=== PATIENT | female | born 1960 | race Caucasian/White ===

== ENCOUNTER → 2017-11-05 09:05 | Outpatient (CLI) | payer MEDICAID, SELFPAY ==
--- NOTE | 2017-11-05 09:10 | MM_ITS ---
MM Dig screening mamm BI w/CAD CAD Screening COMPARISON: Digital mammograms 04/08/2012 and 03/31/2015 INDICATION: There is a history of breast cancer in patient's maternal aunt. TECHNIQUE: Standard CC and MLO images were obtained. R2 CAD reviewed. FINDINGS: The breasts are composed primarily of fat with minimal scattered fibroglandular densities throughout each breast. There is a stable asymmetric density upper outer quadrant right breast likely asymmetric glandular tissue. There are stable benign-appearing calcifications right breast. There is no suspicious lesion and no suspicious microcalcifications. IMPRESSION: Fibrofatty parenchyma with no suspicious lesion seen BI-RADS Category: 2 Benign Finding RECOMMENDED FOLLOW-UP: 1YR - 1 YEAR FOLLOW-UP (A letter has been sent to the patient regarding results of the study.)
[2017-11-05 11:21] LABS: Alanine Aminotransferase 98 U/L (12-78); Albumin Level 4.1 gm/dL (3.4-5.0); Alkaline Phosphatase 109 U/L (46-116); Aspartate Amino Transferase 49 U/L (15-37); Bilirubin,Direct 0.2 mg/dL (0.0-0.2); Bilirubin,Total 0.5 mg/dL (0.2-1.0); Chol/HDL Ratio 3.3 (1-3.5); Cholesterol 220 mg/dL (140-200); HDL Cholesterol 66 mg/dL (29-89); LDL Cholesterol 125 mg/dL (0-130); Total Protein,Serum 7.3 gm/dL (6.4-8.2); Triglycerides 144 mg/dL (30-200); VLDL Cholesterol 29 mg/dL (0-40)
== END ==
PROVIDERS: Internal Medicine Interventional Cardiology; Family Provider Internal Medicine Adolescent Medicine; PCP Nurse Practitioner Family; Visit Provider Nurse Practitioner Family
DX: Z12.31 Encounter for screening mammogram for malignant neoplasm of breast (principal)
CPT/HCPCS: 36415; 77067; 80061; 80076

== ENCOUNTER → 2019-03-16 16:33 | Outpatient (CLI) | payer MEDICAID, SELFPAY ==
--- NOTE | 2019-03-16 | MM_ITS ---
MM Dig screening mamm BI w/CAD CAD Screening COMPARISON: Digital mammograms with CAD 03/31/2015 and 11/05/2017 INDICATION: There is a history of breast cancer in patient's maternal aunt diagnosed at age 50 TECHNIQUE: Standard CC and MLO images were obtained. R2 CAD reviewed. FINDINGS: Scattered fiber glandular densities are seen throughout both breasts. Again noted is asymmetric glandular density upper outer quadrant right breast which is stable. There are couple benign-appearing calcifications in each breast. There is no suspicious lesion and there are no suspicious microcalcifications. IMPRESSION: Fibrofatty parenchyma with no suspicious lesion seen BI-RADS Category: 2 Benign Finding(s) RECOMMENDED FOLLOW-UP: 1YR - 1 YEAR FOLLOW-UP (A letter has been sent to the patient regarding results of the study.)
== END ==
PROVIDERS: PCP Nurse Practitioner Family; Visit Provider Nurse Practitioner Family
DX: Z12.31 Encounter for screening mammogram for malignant neoplasm of breast (principal)
CPT/HCPCS: 77067

== ENCOUNTER → 2019-04-27 16:47 | Outpatient (CLI) | payer MEDICAID, SELFPAY ==
[2019-04-27 21:28] LABS: Anion Gap 11.6 mEq/L (5-15); Blood Urea Nitrogen 18 mg/dL (7-18); Calcium 9.4 mg/dL (8.5-10.1); Carbon Dioxide 30 mmol/L (21.0-32.0); Chloride 101 mmol/L (98-107); Creatinine,Serum 0.85 mg/dL (0.55-1.02); Estimated Glomerular Filt Rate 68 ml/min (>60); GFR (African American) 82 ML/MIN (>60); Glucose 258 mg/dL (74-106); Potassium 4.6 mmoL/L (3.5-5.1); Sodium 138 mmol/L (136-145)
== END ==
PROVIDERS: Visit Provider Nurse Practitioner Family
DX: K57.93 Diverticulitis of intestine, part unspecified, without perforation or abscess with bleeding (principal)
CPT/HCPCS: 36415; 80048

== ENCOUNTER → 2019-04-28 11:03 | Outpatient (CLI) | payer MEDICAID, SELFPAY ==
--- NOTE | 2019-04-28 11:14 | CT_ITS ---
CT abdomen pelvis w con CLINICAL INDICATION: ITS.REASON: DIVERTICULITIS ORDERING PHYSICIAN: Meli Gallardo PATIENT AGE: 59 years COMPARISON: 07/14/2015. TECHNIQUE: Axial images obtained with sagittal and coronal reformats. All CT scans at the facility use one or more dose reduction, viz: automated exposure control, ma/kV adjustment per patient size (including targeted exams where dose is matched to indication, i.e. head), or iterative reconstruction technique. PROCEDURE: Oral Contrast: None IV Contrast: Yes . FINDINGS: Lower thorax: No acute finding ABDOMEN: Liver: No masses or biliary dilatation. Gallbladder: Not visualized. Pancreas: No masses or peripancreatic fluid collections. Spleen: Unremarkable. Adrenals: Unremarkable Kidneys/ureters: No masses. No renal calculi. No hydronephrosis. No perinephric fluid collections. No ureteral dilatation or obvious ureteral calculi. Stomach bowel: There is a small gastric hernia. There are colonic diverticula and there is an area of moderate wall thickening with pericolonic stranding involving proximal sigmoid colon. There is no definite extraluminal air or abscesses. Appendix: No evidence of appendicitis. PELVIS: Reproductive: Uterus is not visualized. Bladder: Nondistended. No obvious stones or masses. ABDOMEN & PELVIS: Peritoneum: No abnormal fluid collections. No obvious inflammatory changes. No free air. Lymph nodes: There are a few small likely stable left para-aortic lymph nodes and these are likely benign. Vasculature: No evidence of abdominal aortic aneurysm. No retroperitoneal hemorrhage evident. Bones: No acute osseous process. The left-sided sacral stimulator device is unchanged. IMPRESSION: Evidence of sigmoid colon colitis likely related to acute diverticulitis. Because all wall thickening focally I would suggest direct visualization or at least follow-up imaging to rule out any other possible transmural process. Small gastric hernia.
== END ==
PROVIDERS: PCP Nurse Practitioner Family; Visit Provider Nurse Practitioner Family
DX: K57.93 Diverticulitis of intestine, part unspecified, without perforation or abscess with bleeding (principal)
CPT/HCPCS: 74177; Q9967

== ENCOUNTER 2019-10-30 08:00 | Outpatient (RCR) | payer MEDICAID, SELFPAY | END 2019-11-16 17:00 | disposition home or self-care (01) | LOC: PT.CARL 08:00 | PROVIDERS: Visit Provider Orthopaedic Surgery Adult Reconstructive Orthopaedic Surgery | DX: M77.11 Lateral epicondylitis, right elbow (principal); M54.2 Cervicalgia | CPT/HCPCS: 97014; 97033; 97035; 97110; 97163; G0283 ==

== ENCOUNTER → 2020-05-05 12:31 | Outpatient (CLI) | payer MEDICAID, SELFPAY ==
--- NOTE | 2020-05-05 12:35 | MM_ITS ---
PROCEDURE: MM DIG SCREENING MAMM BI W/CAD Digital Breast Tomosynthesis Included CLINICAL INDICATION: SCREENING History of breast cancer patient's mother COMPARISON: MG DMSB DIG MAMM-SCREEN TAE from 03/31/2015 MG [facility] MM Dig screening mamm BI w/CAD from 11/05/2017 MG DIG MAMM-SCREEN TAE from 03/16/2019 TECHNIQUE: Standard CC and MLO images and 3D Tomosynthesis was obtained. R2 CAD reviewed. FINDINGS: Mild to moderate diffuse fibroglandular densities are seen throughout both breasts. There is a stable area of asymmetric glandular elements upper-outer quadrant right breast. There is a stable benign-appearing nodular density just deep to the nipple right breast. There is no new or suspicious lesion in either breast and no suspicious microcalcifications. There is a benign-appearing calcification right breast. IMPRESSION: Moderate breast density with no suspicious lesions seen BI-RAD Category: 2 Benign Finding(s) FOLLOW-UP: 1YR 1 Year Follow-up (A letter has been sent to the patient regarding results of the study.) Dictated Dr. Vito Gallegos MD 05/13/2020 08:32 Dr. Vito Buckley MD in [place] 05/13/2020 08:32
== END ==
PROVIDERS: PCP Nurse Practitioner Family; Visit Provider Nurse Practitioner Family
DX: Z12.31 Encounter for screening mammogram for malignant neoplasm of breast (principal)
CPT/HCPCS: 77063; 77067

== ENCOUNTER 2021-02-09 14:00 | Outpatient (RCR) | payer MEDICAID, SELFPAY | END 2021-03-13 09:49 | disposition home or self-care (01) | LOC: PT.CARL 14:00 | PROVIDERS: PCP Nurse Practitioner Family; Visit Provider Nurse Practitioner Family | DX: M54.5 Low back pain (principal) | CPT/HCPCS: 97110; 97140; 97163 ==

== ENCOUNTER → 2021-06-05 08:08 | Outpatient (CLI) | payer MEDICAID, SELFPAY ==
--- NOTE | 2021-06-05 08:13 | MM_ITS ---
PROCEDURE: MM DIG SCREENING MAMM BI W/CAD Digital Breast Tomosynthesis Included CLINICAL INDICATION: SCREENING There is a history of breast cancer in the patient's. COMPARISON: MG [facility] MM Dig screening mamm BI w/CAD from 11/05/2017 MG DIG MAMM-SCREEN TAE from 03/16/2019 MG MM DIG SCREENING MAMM BI W/CAD from 05/05/2020 TECHNIQUE: Standard CC and MLO images and 3D Tomosynthesis was obtained. R2 CAD reviewed. FINDINGS: Mild scattered fibroglandular densities are seen throughout both breasts. There is a mole marker inner quadrant right breast. There are a few scattered benign-appearing microcalcifications in each breast. There is no new or suspicious lesion in either breast and no suspicious microcalcifications. IMPRESSION: Stable mild breast density with no suspicious lesions seen BI-RAD Category: 2 Benign Finding(s) FOLLOW-UP: 1YR 1 Year Follow-up (A letter has been sent to the patient regarding results of the study.) Dictated by: Dr. Vito Buckley MD 06/09/2021 08:57 Dr. Vito Buckley MD in [place] 06/09/2021 08:57
== END ==
PROVIDERS: PCP Nurse Practitioner Family; Visit Provider Nurse Practitioner Family
DX: Z12.31 Encounter for screening mammogram for malignant neoplasm of breast (principal)
CPT/HCPCS: 77063; 77067

== ENCOUNTER → 2022-07-03 15:35 | Outpatient (CLI) | payer MEDICAID, SELFPAY ==
--- NOTE | 2022-07-03 15:40 | MM_ITS ---
PROCEDURE INFORMATION: Exam: MG Bilateral Screening 3D Mammography Exam date and time: 07/03/2022 3:36 PM Age: 62 years old Clinical indication: Screening examination TECHNIQUE: Imaging protocol: Bilateral Screening tomosynthesis and 2D mammography including computer-aided detection (CAD) when performed. COMPARISON: 1. MG MM DIG SCREENING MAMM BI W/CAD 06/05/2021 8:54 AM 2. MG MM DIG SCREENING MAMM BI W/CAD 05/05/2020 1:06 PM 3. MG DIG MAMM-SCREEN TAE 03/16/2019 4:45 PM 4. MG [facility] MM Dig screening mamm BI w/CAD 11/05/2017 9:36 AM FINDINGS: MAMMOGRAPHY: Breast composition: There are scattered areas of fibroglandular density. Mass: None. Architectural distortion: No new or suspicious architectural distortion. Calcifications: Stable benign-appearing calcifications are present. No new or suspicious cluster of microcalcifications have developed. Asymmetric density: No new or suspicious asymmetric density is present Skin thickening: None. Axillary adenopathy: None. IMPRESSION: No mammographic evidence of malignancy. Recommend annual screening mammography unless otherwise clinically indicated. ASSESSMENT: BI-RADS category 2: Benign
== END ==
PROVIDERS: PCP Nurse Practitioner Family; Visit Provider Nurse Practitioner Family
DX: Z12.31 Encounter for screening mammogram for malignant neoplasm of breast (principal)
CPT/HCPCS: 77063; 77067

== ENCOUNTER → 2022-11-13 12:40 | Outpatient (CLI) | payer MEDICAID, SELFPAY ==
--- NOTE | 2022-11-13 12:45 | MM_ITS ---
PROCEDURE INFORMATION: Exam: US Left Breast, Complete MG Left Diagnostic Breast Tomosynthesis Exam date and time: 11/13/2022 1:23 PM Age: 62 years old Clinical indication: Concern for palpable lump in the left breast: PT felt area 900 area-- PT also has bruising this area. TECHNIQUE: Imaging protocol: Complete ultrasound of all four quadrants of the Left breast and the retroareolar regions, including ultrasound of the axilla when performed. Left Diagnostic tomosynthesis and 2D mammography including computer-aided detection (CAD) when performed. Unilateral or bilateral exam. Triangular skin marker placed with spot compression added. COMPARISON: 1. MG MM DIG SCREENING MAMM BI W/CAD 07/03/2022 3:36 PM 2. MG MM DIG SCREENING MAMM BI W/CAD 06/05/2021 8:54 AM 3. MG MM DIG SCREENING MAMM BI W/CAD 05/05/2020 1:06 PM 4. MG DIG MAMM-SCREEN TAE 03/16/2019 4:45 PM FINDINGS: MAMMOGRAPHY: Breast composition: There are scattered areas of fibroglandular density. Mass: None. Architectural distortion: None. Calcifications: No suspicious calcifications. Asymmetric density: None. Skin thickening: None. Axillary adenopathy: None. Other: No mammographic findings related to area of clinical concern in the lower inner breast. ULTRASOUND: Left sonography, all 4 quadrants, retroareolar and axilla. At the area of palpable concern, 9 o'clock 5 cm from the nipple, no sonographic findings demonstrated. Several oval hyperechoic masses, likely lipomas, at 1 o'clock 7 cm from the nipple measuring 0.4 x 0.6 x 0.4 cm and at 10 o'clock 3 cm from the nipple measuring 1.4 by 1.1 x 0.5 cm. Scattered sub cm simple cysts. Sonographically unremarkable left axillary lymph node. IMPRESSION: No mammographic or sonographic findings at the area of clinical concern in the left breast.Further evaluation of a palpable abnormality should be based on clinical grounds regardless of radiographic findings or lack thereof. Probably benign echogenic masses, likely lipomas, on the left at 1 and 10 o'clock, suggest six-month follow-up targeted left sonography unless otherwise clinically indicated. ASSESSMENT: BI-RADS Category 3: Probably benign
== END ==
PROVIDERS: PCP Nurse Practitioner Family; Visit Provider Nurse Practitioner Family
DX: N63.20 Unspecified lump in the left breast, unspecified quadrant (principal)
CPT/HCPCS: 76641; 77061; 77065; G0279

== ENCOUNTER 2023-04-30 09:00 | Outpatient (RCR) | payer MEDICAID, MEDICARE, SELFPAY | END 2023-04-30 10:00 | disposition home or self-care (01) | LOC: PT 09:00 | PROVIDERS: PCP Nurse Practitioner Family; Visit Provider Orthopaedic Surgery Sports Medicine | DX: M25.511 Pain in right shoulder (principal); M75.101 Unspecified rotator cuff tear or rupture of right shoulder, not specified as traumatic | CPT/HCPCS: 97010; 97016; 97110; 97140; 97163; 97164; 97530 ==

== ENCOUNTER → 2023-05-10 13:29 | Outpatient (CLI) | payer MEDICARE, MEDICAID, SELFPAY ==
--- NOTE | 2023-05-10 13:33 | US_ITS ---
PROCEDURE INFORMATION: Exam: US Left Breast, Complete Exam date and time: 05/10/2023 3:11 PM Age: 63 years old Clinical indication: Short-term radiographic follow-up for a probable lipoma TECHNIQUE: Imaging protocol: Complete ultrasound of all four quadrants of the left breast and the retroareolar regions, including ultrasound of the axilla when performed. COMPARISON: US BREAST LT COMPLETE 11/13/2022 1:15 PM FINDINGS: Breast: Sonographic images of the left breast including the retroareolar region, all 4 quadrants and the axilla do not demonstrate any suspicious solid or cystic masses. Minimal subcentimeter cystic change is present in the left breast Incidental subcentimeter lipoma in the upper outer quadrant. No architectural distortion or acoustical shadowing. No skin thickening or axillary adenopathy. IMPRESSION: No sonographic evidence of malignancy.Annual bilateral mammographic screening is recommended in November 2023 unless otherwise clinically indicated. ASSESSMENT: BI-RADS Category 2: Benign
== END ==
PROVIDERS: PCP Nurse Practitioner Family; Visit Provider Nurse Practitioner Family
DX: R92.2 Inconclusive mammogram (principal)
CPT/HCPCS: 76641

== ENCOUNTER 2024-12-22 13:23 | Outpatient (CLI) | payer MEDICARE, MEDICAID, SELFPAY ==
--- NOTE | 2024-12-22 13:26 | MM_ITS ---
PROCEDURE INFORMATION: Exam: MG Bilateral Screening 3D Mammography Exam date and time: 12/22/2024 1:38 PM Age: 64 years old Clinical indication: Screening examination TECHNIQUE: Imaging protocol: Bilateral Screening tomosynthesis and 2D mammography including computer-aided detection (CAD) when performed. COMPARISON: 1. MG MM DIG MAMM DX UNILAT LT CAD 11/13/2022 1:23 PM 2. MG MM DIG SCREENING MAMM BI W/CAD 07/03/2022 3:36 PM FINDINGS: MAMMOGRAPHY: Breast composition: There are scattered areas of fibroglandular density. Mass: No suspicious masses. Architectural distortion: None. Calcifications: No suspicious calcifications. Asymmetric density: None. Skin thickening: None. Axillary adenopathy: None. IMPRESSION: No mammographic evidence of malignancy. Annual screening is recommended unless otherwise clinically indicated. ASSESSMENT: BI-RADS Category 1: Negative.
== END 2024-12-22 23:59 | disposition home or self-care (01) ==
LOC: RAD 13:24
PROVIDERS: PCP Nurse Practitioner Family; Visit Provider Nurse Practitioner Family
DX: Z12.31 Encounter for screening mammogram for malignant neoplasm of breast (principal)
CPT/HCPCS: 77063; 77067

== ENCOUNTER 2025-04-06 07:28 | Outpatient (CLI) | payer MEDICARE, MEDICAID, SELFPAY ==
--- OUTSIDE RECORDS SUMMARY | 2025-02-05 08:45 | XMS_ITS | Encounter Summary ---
Author Organization Healthcare Address [address] [place] [address] Care Team Providers Care Compound Mixer Name Role Phone Meli Gallardo CEMENT DESPATCH OPERATOR Primary Care Provider [phone] Reason for Referral * Consultation (Routine) - Authorized Specialty Diagnoses / Procedures Referred By Estrellita alves Referred To Contact Sleep Medicine Diagnoses CAROLINE (obstructive sleep apnea) Raúl Miller DO [address] [place] [address] Phone: tel: fax: [facility] [address] [place] [address] Phone: tel: fax: Referral ID Status Reason Start Date Expiration Date Visits Requested Visits Authorized [id number] Authorized Specialty Services Required 02/05/2025 08/07/2026 1 1 Scheduling Instructions History of CAROLINE that is NOT TREATED Reason for Visit * Reason Comments ASCVD * Consultation (Routine) - Closed Specialty Diagnoses / Procedures Referred By Estrellita alves Referred To Contact Cardiology Diagnoses Atherosclerotic heart disease of [place] coronary artery without angina pectoris Meli Gallardo, CEMENT DESPATCH OPERATOR [address] [place] [address] Phone: tel: fax: Referral ID Status Reason Start Date Expiration Date V isits Requested Visits Authorized [id number] Closed Specialty Services Required 11/25/2024 05/27/2026 1 1 Encounter Details Date Type Department Care Team (Late st Contact Info) Description 02/05/2025 8:45 AM EDT Consult [facility] [place] [address], [address] [place] [address] Raúl Miller, DO [address] [place] [address] Atypical chest pain (Primary Dx); Essential hypertension; Mixed dyslipidemia; TIA (transient ischemic attack); CAROLINE (obstructive sleep apnea); Class 1 obesity Social History Tobacco Use Types Packs/Day Years Used Date Smoking Tobacco: Never Passive Smoke Exposure: Never Smokeless Tobacco: Never Alcohol Use Standard Drinks/Week Comments No 0 (1 standard drink = 0.6 oz pur e alcohol) Humiliation, Afraid, Rape, and Kick questionnair e Answer Date Recorded Within the last year, have y ou been afraid of your partner or ex-partner? No 10/02/2024 Within the last year, have y ou been humiliated or emotionally abused in other ways by your partner or ex-partner? No Within the last year, have y ou been kicked, hit, slapped, or otherwise physically hurt by your partner or ex-partner? No 10/02/2024 Within the last year, have y ou been raped or forced to have any kind of sexual activity by your partner or ex-partner? No 10/02/2024 Social Connection and Isolation Panel Answer Date Recorded In a typical week, how many times do you talk on the phone with family, friends, or neighbors? More than three times a week 10/02/2024 How often do you get togethe r with friends or relatives? More than three times a week 10/02/2024 How often do you attend chur ch or rastafari services? Never 10/02/2024 Do you belong to any clubs o r organizations such as adventism groups, unions, fraternal or athletic groups, or school groups? No 10/02/2024 How often do you attend meet ings of the clubs or organizations you belong to? Never 10/02/2024 Are you , , di vorced, , never , or living with a partner? 10/02/2024 AUDIT-C Answer Date Recorded Q1: How often do you have a drink containing alcohol? Never 10/02/2024 Q2: How many drinks containi ng alcohol do you have on a typical day when you are drinking? Patient does not drink Q3: How often do you have si x or more drinks on one occasion? Never 10/02/2024 PHQ-2 Answer Date Recorded Patient Health Questionnaire-2 Score 0 02/24/2024 [facility] - Occupational Stress Questionnaire Answer Date Recorded Do you feel stress - tense, restless, nervous, or anxious, or unable to sleep at night because your mind is troubled all the time - these days? Only a little 10/02/2024 Exercise Vital Sign Answer Date Recorde d On average, how many days pe r week do you engage in moderate to strenuous exercise (like a brisk walk)? 3 days 10/02/2024 On average, how many minutes do you engage in exercise at this level? 30 min 10/02/2024 Hunger Vital Sign Answer Date Recorded Within the past 12 months, y ou worried that your food would run out before you got the money to buy more. Never true 10/02/20 24 Within the past 12 months, t he food you bought just didn't last and you didn't have money to get more. Never true 10/02/2024 PRAPARE - Transportation Answer Date Re corded In the past 12 months, has l ack of transportation kept you from medical appointments or from getting medications? No 09/07 In the past 12 months, has l ack of transportation kept you from meetings, work, or from getting things needed for daily living? No 10/02/2024 Housing Stability Vital Sign Answer Isidro e Recorded In the last 12 months, was t here a time when you were not able to pay the mortgage or rent on time? No 10/02/2024 In the past 12 months, how m any times have you moved where you were living? 1 10/02/2024 At any time in the past 12 m [facility], were you homeless or living in a assisted (including now)? No 10/02/2024 CAGE ASSESSMENT Answer Date Recorded Cage unable to access Not on file 10/01/2024 Cage max number of drinks Not on file 2023 Cage Beverages a week Not on file 10/01/2024 Have you ever felt you should CUT down on your d rinking? 0 10/01/2024 Have you been ANNOYED by people criticizing your drinking? 0 10/01/2024 Have you felt GUILTY about your drinking? 0 10/01/2024 Have you had a drink first t allison in the morning (EYE-SWIMMING TEACHER) to steady your nerves or to get rid of a hangover? 0 10/01/2024 CAGE Questionnaire Score 0 024 Utilities Answer Date Recorded In the past 12 months has th e [employer], gas, oil, or water [employer] threatened to shut off services in your home? No 10/02/2024 Comments No Sex and Gender Information Value Date Recorded Sex Assigned at Female 10/02/2023 1:40 PM EST Legal Sex Female 7:54 PM EDT Gender Identity Female 10/02/2023 1:40 PM EST Sexual Orientation Straight 02/08/2023 6: 04 AM EDT documented as of this encounter Last Filed Vital Signs Vital Sign Reading Time Taken Comments Blood Pressure 124/81 02/05/2025 8:51 AM EDT Pulse 68 02/05/2025 8:51 AM EDT Temperature 37.1 C (98.8 F) 02/05/2025 8:51 AM EDT Respiratory Rate 17 02/05/2025 8:51 AM EDT Oxygen Saturation 96% 02/05/2025 8:51 AM EDT Inhaled Oxygen Concentration - - Weight 78 kg (171 lb 15.3 oz) 02/05/2025 8:51 AM EDT Height 154.9 cm (5' 1 ) 02/05/2025 8:51 AM EDT Body Mass Index 32.49 02/05/2025 8:51 AM EDT documented in this encounter Miscellaneous Notes * Assessment & Plan Note - Raúl Miller DO - 02/05/2025 11:21 AM EDT Associated Problem(s): Class 1 obesity - dietary and lifestyle modifications discussed * Assessment & Plan Note - Raúl Miller DO - 02/05/2025 11:21 AM EDT Associated Problem(s): Mixed dyslipidemia - In very high atherosclerotic cardiovascular disease (ASCVD) risk patients LDL- C goal </= 70 mg/dL - Continue therapy with Atorvastatin (Lipitor) 40 mg by mouth daily - Goal LDL-C < 70 mg/dL - repeat lipid panel today - given the patient's documented historical intolerance to statins and subjective lower extremity weakness we will also screen for liver enzymes and CK * Assessment & Plan Note - Raúl Miller DO - 02/05/2025 11:20 AM EDT Associated Problem(s): TIA (transient ischemic attack) - patient currently maintained on dual antiplatelet therapy with aspirin 81 mg and Plavix 75 mg daily - would prefer single antiplatelet therapy for secondary prevention only - I have advised the patient to discuss the utility of prolonged dual antiplatelet therapy with herneurologist - from a cardiovascular standpoint, aspirin 81 mg daily is sufficient * Assessment & Plan Note - Raúl Miller DO - 02/05/2025 11:19 AM EDT Associated Problem(s): Essential hypertension - Goal blood pressure < 130/80 mmHg - Medication titration to goal as tolerated - Home blood pressure log discussed - I recommended that the patient check their blood pressure multiple times per week for PCP/my review in an effort to optimize medication titration to goal - Orthostatic precautions were discussed in detail * Assessment & Plan Note - Raúl Miller DO - 02/05/2025 11:19 AM EDT Associated Problem(s): CAROLINE (obstructive sleep apnea) - sleep Medicine referral placed - patient would benefit from positive airway pressure treatment of her obstructive sleep apnea * Assessment & Plan Note - Raúl Miller DO - 02/05/2025 11:18 AM EDT Associated Problem(s): Atypical chest pain - chest pain is noncardiac in nature - given normal catheterization and an echocardiogram recently, no further cardiac investigation is indicated at this time - we will focus our efforts on secondary prevention * Patient Instructions - Raúl Miller DO - 02/05/2025 8:45 AM EDT Images from the original note were not included. [facility] Office Building [address] [place] [address] Clinic Svetlana Dutton RN: [phone] Our Lab: [address] [place] [address] (call to schedule a lab appointment) It was a pleasure to see you at the [facility] on [facility]. We strive to provide timely care for all our patients, and your cooperation is essential in helping us achieve this goal. To ensure a smooth visit, we kindly ask that you arrive 20-30 minutes prior to your scheduled appointment time. Additionally, please bring all yourmedications or an updated list of your medications for our staff to review. If you have any questions or concerns, feel free to contact us by phone or send a message through [employer]. We are committed to accommodating all inquires and requests in a timely fashion. If you experience any cardiac symptoms, such as chest pain or shortness of breath, please reach outto us immediately. If you cannot reach us, seek emergency medical assistance at your nearest emergency department. We want to ensure the best possible care for you. If you visit urgent care, an emergency department, or are hospitalized before your next appointment, please notify our office. Additionally, please bring any relevant discharge paperwork and cardiac test results to your next visit for review. If you encounter any issues with your medications--such as filling, refilling, or side effects--, scheduling diagnostic tests, or scheduling referrals please call our office and send us a message through [employer] so we can assist you. Thank you for coming to clinic today! Below is some information about what we discussed and a list of the orders that were placed during the visit. -Orders Placed This Visit Orders Placed This Encounter Procedures Comprehensive metabolic panel Standing Status: Future Expected Date: 02/05/2025 Expiration Date: 08/08/2026 Release to patient in MyChart: Immediate [1] Creatine Kinase (CK), Total Standing Status: Future Expected Date: 02/05/2025 Expiration Date: 08/08/2026 Release to patient in MyChart: Immediate [1] Lipid panel Standing Status: Future Expected Date: 02/05/2025 Expiration Date: 08/08/2026 [facility]] Ambulatory referral to Adult Sleep Medicine Standing Status: Future Expected Date: 02/05/2025 Expiration Date: 08/08/2026 Referral Priority: Routine Referral Type: Consultation Referral Reason: Specialty Services Required Requested Specialty: Sleep Medicine Number of Visits Requested: 1 ECG Adult Reason for Exam:: Chest Pain Hypertension Hypertension, or high blood pressure is extremely common. It usually occurs due to hardening of thearteries as we age. There are many ways to try to lower blood pressure without pills, but often we still need medication to achieve a healthy blood pressure. I recommend targeting a blood pressure goal of less than 130/80. That means the systolic blood pressure (top number) should be less than 130 AND the diastolic blood pressure (bottom number) should be less than 80. A healthy blood pressure isvery important because uncontrolled hypertension increases the risk for heart attacks, heart failure, strokes, kidney disease, dementia, and many other health problems. Below are some tips for maintaining a healthy blood pressure: -Keep track of your blood pressure and pulse (heart rate) at home and record your measurements in alog book with the date and time. -Bring your log book to all of your doctor's appointments, not just to Cardiology. -If you are overweight, losing weight can lower blood pressure -Avoid salt in the diet. Remember that sodium = salt. Read the nutritional labels on your food. Youjust try to eat <2,000 mg of sodium each day. -Exercise can lower your blood pressure too (even without weight loss!). Try to exercise 30 minutesa day 5 days of the week. -Drink alcohol in moderation. No more than 1-2 drinks in a sitting. -Avoid NSAID medications (Ibuprofen, Advil, Aleve, or Naproxen). For pain, I recommend tylenol which doesn't raise blood pressure. -Take your blood pressure medications as prescribed every day. To avoid missing doses, try using a pill box or setting alarms on your smart phone. - If you have any issues with your medications (filling, refilling, side- effects, etc.) please giveour office a call AND send a message to us on [employer] so we can help. Prevention of Heart Disease - To lower your risk of heart disease, I recommend following the [place] [employer]'s Life Essential 8. Visit their website (heart.org/lifes8) to learn more about each topic. - If you have any issues with your medications (filling, refilling, side- effects, etc.) please giveour office a call AND send a message to us on [employer] so we can help. Orozco points: -Diet: Consume a heart health diet and avoid unhealthy foods (processed foods, fast foods, red meats, high salt, sugary drinks) -Exercise: Get 150 minutes of exercise every week -Sleep: Try to get at least 7 hours of sleep every night -Avoid Toxins: Don't use any tobacco products or illegal drugs. Drink alcohol in moderation. -Blood Pressure: Know your blood pressure. Monitor it at home. A healthy blood pressure is <130/80. -Blood Sugar and Cholesterol: these should be checked periodically and treated accordingly * Progress Notes - Raúl Miller DO - 02/05/2025 8:45 AM EDT Images from the original note were not included. Cardiology Clinic New Patient Note CARDIOLOGY CLINIC NEW PATIENT NOTE Date of Visit: 02/05/25 Referring Provider: Meli Gallardo APRN [address] [place] [address] PCP: Meli Gallardo, MIGUEL ANGEL Reason for referral/consultation: Atherosclerotic Cardiovascular Disease, Unspecified Subjective History of Present Illness April Olvera is a 64 y.o. adult with a medical history notable for has a past medical history of Anxiety, Cerebrovascular accident ([facility]), Class 1 obesity, COVID-19, Diabetic neuropathy ([facility]), Diaphragmatic hernia without obstruction or gangrene (03/30/2024), Former tobacco use, GERD (gastroesophageal reflux disease), H/O renal calculi, Hypertension, Hypothyroidism, IBS (irritable bowel syndrome), Mixed dyslipidemia, PVD (peripheral vascular disease) ([facility]), Sleep apnea, TIA (transient ischemic attack), and Type 2 diabetes mellitus. who presents to clinic today for a new patient con sultation/evaluation of the above listed issue. The patient presents today for new patient evaluation of ASCVD without angina. The patient has beenreferred by Meli Gallardo APRN. The patient is a former patient of [facility], however, recent insurance issues have caused her to transition her care to the [facility]. The patient was seen most recently in [facility] Emergency Department for chest pain on 2023. The patient at the time rate of the chest pain a 6/10. There were no other associated symptoms with her chest pain. The patient was discharged home. I am unable to visualize the electrocardiogram or cardiac troponin assessment if it was completed. Most notably, the patient has a largely unrevealing cardiovascular workup performed at [facility]. She has no recent chest pain or shortness of breath issues. The patient's main issue is fatigue. She notes non restorative sleep and morning headaches. She has a diagnosis of obstructive sleep apnea, her the, does not currently use positive airway pressure device at night for treatment. The patient is able to perform all of her activities of daily living without cardiovascular or cardiopulmonary limitation. The patient is able to perform greater than 4 metabolic equivalents of cardiac workload without issue. The patient's most significant complaint is fatigue. She states she has been fatigued for greater than 1 year without interval resolution. She has no acute cardiovascular complaints to report today. She does report a history of transient ischemic attack x2. The chest pain that the patient experiences as reported as a tingling that is located in the center of her chest that resolves upon breathing. Her description of the chest pain is overall noncardiac. Additionally, she does note nocturnal leg cramping with restless legs syndrome. There are no symptoms of claudication. The patient denies fever, chills, unexpected changes in weight, changes in vision or hearing, chestpain/angina, palpitations, dyspnea, abdominal pain, changes in bowel or bladder habits, extremity weakness, and skin changes. Review of Systems Constitutional: Positive for malaise/fatigue. Negative for fever, night sweats, weight gain and weight loss. HENT: Negative. Cardiovascular: Negative for chest pain, dyspnea on exertion, leg swelling and palpitations. Respiratory: Negative. Negative for sleep disturbances due to breathing. Endocrine: Negative. Hematologic/Lymphatic: Negative for bleeding problem. Does not bruise/bleed easily. Skin: Negative. Musculoskeletal: Positive for muscle cramps (Nocturnal). Gastrointestinal: Negative. Genitourinary: Negative. Neurological: Negative. Psychiatric/Behavioral: Negative. Allergic/Immunologic: Negative. All other systems reviewed and are negative. Objective The following portions of the chart were reviewed and updated during this encounter: ---- Tobacco Meds Problems Med Hx Surg Hx Fam Hx Soc Hx ---- Primary Study Review: I personally reviewed the the report of the following studies: Ankle-brachial index, carotid ultrasound, transthoracic echocardiogram, cardiac catheterization I personally reviewed the the images/tracings of the following studies: ECG Labs: Lab Results Component Value Date NA 140 10/03/2024 K 3.8 10/03/2024 CL 102 10/03/2024 CO2 25 10/03/2024 BUN 11 10/03/2024 CREATININE 0.82 10/03/2024 CALCIUM 9.0 10/03/2024 Lab Results Component Value Date AST 26 10/01/2024 ALT 32 10/01/2024 ALKPHOS 96 10/01/2024 BILITOT 0.5 10/01/2024 Lab Results Component Value Date TRIG 226 (H) 10/02/2023 CHOL 250 10/31/2018 HDL 47 10/31/2018 LDLCALC 155 10/31/2018 Lab Results Component Value Date WBC 5.40 10/03/2024 HGB 12.4 10/03/2024 HCT 37.4 10/03/2024 PLT 204 10/03/2024 MCV 88 10/03/2024 MCV 90 02/03/2021 Lab Results Component Value Date TSH 3.46 10/02/2023 BNP 68 07/17/2020 No results found for: CKTOTAL , CKMB , CKMBINDEX , TROPONINI Medications Current Outpatient Medications Medication Instructions amLODIPine (Norvasc) 10 MG tablet 1 tablet, Daily aspirin 81 mg, Daily atorvastatin (LIPITOR) 40 mg, Every evening busPIRone (BUSPAR) 10 mg, 2 times daily citalopram (CELEXA) 40 mg, Daily clopidogrel (Plavix) 75 MG tablet Take 1 tablet by mouth in the morning. empagliflozin (JARDIANCE) 25 mg, Daily ergocalciferol (VITAMIN D-2) 50,000 Units, Weekly fluticasone (Flonase) 50 MCG/ACT nasal spray 2 sprays, Daily gabapentin (NEURONTIN) 300 mg, Daily insulin NPH-insulin regular (HumuLIN 70/30 KWIKPEN) (70-30) 100 UNIT/ML injection pen 15 Units, Subcutaneous, 2 times daily before meals, Hold if eating <50% of meal. levothyroxine (Synthroid, Levoxyl) 137 MCG tablet Take 1 tablet by mouth daily before breakfast. lisinopril 20 mg, Daily naloxone (NARCAN) 4 mg, Nasal, As needed Ozempic, 0.25 or 0.5 MG/DOSE, 2 MG/3ML solution pen-injector INJECT 0.25 MG WEEKLY SUBCUTANEOUSLY pantoprazole (PROTONIX) 40 mg, Daily before breakfast pen needle, diabetic 31G X 5 MM misc Use as directed with insulin pen. polyethylene glycol (MiraLax) 17 GM/SCOOP powder Take at 6pm - day before procedure. Mix Miralax 238 gram bottle with 64 ounces of Gatorade and refrigerate. Drink 8 ounces every 15 minutes starting at 6pm until completete. SSICOLON psyllium (Metamucil) 58.6 % powder 1 packet, Oral, Daily Semaglutide, 1 MG/DOSE, (Ozempic, 1 MG/DOSE,) 4 MG/3ML solution pen-injector Inject under the skin.Take once a week Physical Exam Visit Vitals BP 124/81 (BP Location: Left arm, Patient Position: Sitting, BP Cuff Size: Adult) Pulse 68 Temp 37.1 ??C (98.8 ??F) (Oral) Ht 1.549 m (5' 1 ) Wt 78 kg (171 lb 15.3 oz) SpO2 96% BMI 32.49 kg/m?? Physical Exam Vitals and nursing note reviewed. Constitutional: General: She is not in acute distress. HENT: Head: Atraumatic. Eyes: Extraocular Movements: Extraocular movements intact. Neck: Vascular: No carotid bruit. Cardiovascular: Rate and Rhythm: Regular rhythm. Pulses: Normal pulses. Heart sounds: Normal heart sounds. Pulmonary: Breath sounds: No wheezing, rhonchi or rales. Abdominal: General: Bowel sounds are normal. Musculoskeletal: Right lower leg: No edema. Left lower leg: No edema. Skin: General: Skin is warm and dry. Capillary Refill: Capillary refill takes less than 2 seconds. Neurological: Mental Status: She is alert. Mental status is at baseline. Psychiatric: Behavior: Behavior normal. Relevant Prior Cardiac Workup Cardiac Testing: ECG: normal sinus rhythm, no blocks or conduction defects, no ischemic changes, prolonged QTc CT's: Reviewed by Me CT abdomen pelvis: No coronary artery calcium visualized TTE/SEUN December 04, 2023 Normal sized left ventricle. Normal left ventricular wall thickness. Visually estimated ejection fraction 60% +/- 5%. Abnormal systolic strain pattern. Indeterminate diastolic function. No hemodynamically significant valvular heart disease. Negative bubble study for interatrial shunt. Nuclear Imaging No nuclear medicine results found for the past 12 months Cardiac CTA None Cardiac MRI None Cardiac Catheterization January 01, 2023 Normal left main coronary artery, left anterior descending coronary artery, left circumflex coronary artery and right coronary artery. Left ventricular end-diastolic pressure 5 mm of Hg Coronary artery dominance: Right Holter Monitor/Implanted Loop Recorder Jot DX ICM [id number] implanted 04/10/2024 GURVINDER October 27, 2024 Normal bilateral ABIs: Right= 1.12; Left= 1.15 Carotid duplex October 27, 2024 Normal carotids without stenosis Right= 48 cm/sec PSV Left= 39 cm/s PSV LE Venous Duplex October 27, 2024 Negative for deep venous thrombosis Risk Stratification: The ASCVD Risk score (aLrry DK, et al., 2019) failed to calculate for the following reasons: Risk score cannot be calculated because patient has a medical history suggesting prior/existing ASCVD Assessment/Plan Assessment/Plan April Olvera is a 64 y.o. adult with a medical history as listed above who presents to clinic today for a new patient cardiology evaluation and consultation. Problem List Items Addressed This Visit CAROLINE (obstructive sleep apnea) (Chronic) - sleep Medicine referral placed - patient would benefit from positive airway pressure treatment of her obstructive sleep apnea Relevant Orders Ambulatory referral to Adult Sleep Medicine Essential hypertension (Chronic) - Goal blood pressure < 130/80 mmHg - Medication titration to goal as tolerated - Home blood pressure log discussed - I recommended that the patient check their blood pressure multiple times per week for PCP/my review in an effort to optimize medication titration to goal - Orthostatic precautions were discussed in detail TIA (transient ischemic attack) (Chronic) - patient currently maintained on dual antiplatelet therapy with aspirin 81 mg and Plavix 75 mg daily - would prefer single antiplatelet therapy for secondary prevention only - I have advised the patient to discuss the utility of prolonged dual antiplatelet therapy with herneurologist - from a cardiovascular standpoint, aspirin 81 mg daily is sufficient Atypical chest pain - Primary - chest pain is noncardiac in nature - given normal catheterization and an echocardiogram recently, no further cardiac investigation is indicated at this time - we will focus our efforts on secondary prevention Relevant Orders ECG Adult (Completed) Class 1 obesity - dietary and lifestyle modifications discussed Mixed dyslipidemia - In very high atherosclerotic cardiovascular disease (ASCVD) risk patients LDL- C goal </= 70 mg/dL - Continue therapy with Atorvastatin (Lipitor) 40 mg by mouth daily - Goal LDL-C < 70 mg/dL - repeat lipid panel today - given the patient's documented historical intolerance to statins and subjective lower extremity weakness we will also screen for liver enzymes and CK Relevant Orders Comprehensive metabolic panel Creatine Kinase (CK), Total Lipid panel Cardiovascular Focused Lifestyle Modifications -- Lifestyle modifications and their role as treatment adjuvants were discussed: : Diet- Counseled patient on regular measurement of weight, calorie restriction and increased aerobic exercise. Eating a diet that is rich in whole grains, fruits, vegetables, polyunsaturated fats and dairy products and reducing food high in sugar, saturated fat and trans fats, such as the DASH diet is recommended. Increase intake of vegetables high in nitrates known to reduce BP, such as leafy vegetables and beetroot. Other beneficial foods and nutrients include those high in magnesium, calcium and potassium such as avocados, nuts, seeds, legumes and tofu. Additionally, reducing salt added when preparing foods, and at the table and limiting the consumption of high salt foods such as soy sauce, fast foods and processed food including breads and cereals high in salt is recommended : Weight Reduction- Body weight control is indicated to avoid obesity. Particularly abdominal obesity should be managed. : Regular Physical Activity: Regular aerobic and resistance exercise may be beneficial for both theprevention and treatment of hypertension. Moderate intensity aerobic exercise (walking, jogging, cycling, yoga, or swimming) for 30 minutes on 5-7 days per week or HIIT (high intensity interval training) which involves alternating short bursts of intense activity with subsequent recovery periods oflighter activity. Strength training also can help reduce blood pressure. Performance of resistance/strength exercises on 2-3 days per week. : Alcohol Intake- Limiting alcohol consumption to </= 2 standard drinks for men and 1.5 for women with the avoidance of binge drinking. Orders: Orders Placed This Encounter Procedures Comprehensive metabolic panel Standing Status: Future Number of Occurrences: 1 Expected Date: 02/05/2025 Expiration Date: 08/08/2026 [facility]] Creatine Kinase (CK), Total Standing Status: Future Number of Occurrences: 1 Expected Date: 02/05/2025 Expiration Date: 08/08/2026 [facility] [[facility]] Lipid panel Standing Status: Future Number of Occurrences: 1 Expected Date: 02/05/2025 Expiration Date: 08/08/2026 [facility] [[facility]] Ambulatory referral to Adult Sleep Medicine Standing Status: Future Expected Date: 02/05/2025 Expiration Date: 08/08/2026 Referral Priority: Routine Referral Type: Consultation Referral Reason: Specialty Services Required Requested Specialty: Sleep Medicine Number of Visits Requested: 1 ECG Adult Reason for Exam:: Chest Pain Follow Up: 6 months I spent 80 minutes performing the following components of the encounter (on the day of the encounter): reviewing History, examining the patient, reviewing imaging and/or labs, Independently interpreting echocardiogram, ECG and/or other imaging results, ordering tests or procedures, ordering medications, counseling the patient and family/caregiver, communicating with other health personal care service provider, care coordination, and entering clinical information in the EHR. Greater than 50% of the time spent on the encounter was face to face providing direct patient care, counseling for the patient/caregiver, and care coordination. At the conclusion of the encounter, all questions were answered to the patient???s satisfaction. Comments and concerns were taken and addressed again to the patient???s satisfaction. After discussionof all of the issues, the patient was able to verbalize and read back understanding of the discussed topics. After satisfactory read back and comprehension, the encounter concluded. Raúl Miller DO [facility] [employer] manager Division of Cardiovascular Medicine Email: [email or web address] documented in this encounter Plan of Treatment Upcoming Encounters Date Type Department Care Team (Late st Contact Info) Description 04/19/2025 8:00 AM EDT Office Visit Medical Office Building [facility] [address], [address] [place] [address] Francisco J Amor MD [address] [place] [address] 05/18/2025 7:30 AM EDT Appointment [facility] [address] [place] [phone] Manuel Palacios MD [address] [place] [phone] 08/13/2025 8:00 AM EST Office Visit [facility] [place] [address], [address] [place] [address] Raúl Miller DO [address] [place] [phone] Scheduled Referrals Name Type Priority Associated Diagnoses Order Schedule Ambulatory referral to Adult Sleep Medicine Outpatient Referral Routine CAROLINE (obstructive sleep apnea) Expected: 02/05/2025 (Approximate), Expires: 08/08/2026 documented as of this encounter Procedures Procedure Name Priority Date/Time Associated Diagnosis Comments CREATINE KINASE, TOTAL, PLASMA Routine 02/05/2025 9:39 AM EDT Mixed dyslipidemia LIPID PROFILE, PLASMA Routine 02/05/2025 9:39 AM EDT Mixed dyslipidemia COMPREHENSIVE METABOLIC PANEL, PLASMA Routine 02/05/2025 9:39 AM EDT Mixed dyslipidemia ECG ADULT Routine 02/05/2025 9:03 AM EDT Atypical chest pain documented in this encounter Results * Lipid panel (02/05/2025 9:39 AM EDT) Cholesterol, Plasma 165 <200 mg/dL 02/05/2025 11:57 AM EDT [facility] Comment: Cholesterol Reference Range (age >17 years): Desirable <200 mg/dL Borderline 200 to 239 mg/dL Undesirable >239 mg/dL HDL 55 >=50 mg/dL 02/05/2025 11:57 AM EDT [facility] Comment: HDL Cholesterol Reference Ranges (age >17 years): Female, acceptable > or = 50 mg/dL Male, acceptable > or = 40 mg/dL Triglycerides, Plasma 116 <150 mg/dL 02/05/2025 11:57 AM EDT [facility] Comment: Triglyceride Reference Range (age >17 years): Desirable: <150 mg/dL Borderline high: 150 to 199 mg/dL High: 200 to 499 mg/dL Very high: >499 mg/dL Increased risk of pancreatitis: >1000 mg/dL Cholesterol/HDL Ratio 3 02/05/2025 11:57 AM EDT [facility] LDL, Calculated 89 <100 mg/dL 11:57 AM EDT [facility] Comment: LDL Cholesterol Reference Range (age >17 years): Optimal: <100 mg/dL Near or above optimal: 100 - 129 mg/dL Borderline high: 130 - 159 mg/dL High: 160 - 189 mg/dL Very high: >189 mg/dL LDL Cholesterol Reference Range (age <18 years): Desirable: <110 mg/dL Borderline: 110 - 129 mg/dL Undesirable: >130 mg/dL LDL Cholesterol is calculated using the Jones/NIH equation. Fasting greater than or equal to 12 hours? Unknown 02/05/2025 11:57 AM EDT [facility] Blood Venous blood specimen / Unknown Venipuncture / Unknown 02/05/2025 9:39 AM EDT 02/05/2025 9:39 AM EDT Raúl L Angela DO LAB BLOOD ORDERABLES Final Result Performing Organization Address City/[facility]/ZIP Co de Phone Number [facility] [address] [place] [address] * Creatine Kinase (CK), Total (02/05/2025 9:39 AM EDT) Creatine Kinase, Plasma 84 37 - 168 U/L 02/05/2025 11:57 AM EDT [facility] Blood Venous blood specimen / Unknown Venipuncture / Unknown 02/05/2025 9:39 AM EDT 02/05/2025 9:39 AM EDT Raúl L Angela DO LAB BLOOD ORDERABLES Final Result Performing Organization Address [facility] de Phone Number [facility] [address] [place] [address] * (ABNORMAL) Comprehensive metabolic panel (02/05/2025 9:39 AM EDT) Glucose, Plasma 145(H) 74 - 99 mg/dL 02/05/2025 11:57 AM EDT [facility] BUN, Plasma 16 8 - 23 mg/dL 02/05/2025 11:57 AM EDT [facility] Creatinine, Plasma 0.70 0.60 - 1.10 mg/dL 02/05/2025 11:57 AM EDT [facility] BUN/Creatinine Ratio 23 02/05/2025 11:57 AM EDT [facility] Sodium, Plasma 141 136 - 145 mmol/L 02/05/2025 11:57 AM EDT [facility] Potassium, Plasma 4.2 3.6 - 4.9 mmol/L 02/05/2025 11:57 AM EDT [facility] Chloride, Plasma 105 97 - 107 mmol/L 02/05/2025 11:57 AM EDT [facility] CO2, Plasma 24 22 - 29 mmol/L 02/05/2025 11:57 AM EDT [facility] Anion Gap 12 6 - 16 mmol/L 02/05/2025 11:57 AM EDT [facility] Total Calcium, Plasma 9.4 8.9 - 10.2 mg/dL 02/05/2025 11:57 AM EDT [facility] Total Protein 7.3 6.3 - 7.9 g/dL 02/05/2025 11:57 AM EDT [facility] Albumin, Plasma 4.7 3.5 - 5.2 g/dL 02/05/2025 11:57 AM EDT [facility] AST, Plasma 24 10 - 35 U/L 02/05/2025 11:57 AM EDT [facility] ALT, Plasma 23 10 - 35 U/L 02/05/2025 11:57 AM EDT [facility] Alkaline Phosphatase, Plasma 99 46 - 142 U/L 02/05/2025 11:57 AM EDT [facility] Total Bilirubin, Plasma 0.7 0.2 - 1.1 mg/dL 02/05/2025 11:57 AM EDT [facility] eGFRcr 95.5 mL/min/1.7 3m*2 02/05/2025 11:57 AM EDT [facility] Comment:Reported eGFRcr in m L/min/1.73m2 is based the CKD-EPI 2020 equation that does not use a race coefficient. Blood Venous blood specimen / Unknown Venipuncture / Unknown 02/05/2025 9:39 AM EDT 02/05/2025 9:39 AM EDT Raúl Miller DO LAB BLOOD ORDERABLES Final Result [facility] [address] [place] [id number] * ECG Adult (02/05/2025 9:03 AM EDT) EKG DIAGNOSIS CLASS Normal MUSE ECG Ventricular Rate 68 BPM MUSE ECG Atrial Rate 68 BPM MUSE ECG LA Interval 136 ms MUSE ECG QRSD Interval 92 ms MUSE ECG QT Interval 452 ms MUSE ECG QTC Interval 480 ms MUSE ECG P [place] 39 degrees MUSE ECG R [place] 3 degrees MUSE ECG T Wave [place] 12 degrees MUSE ECG Diagnosis Normal sinus rhythm MUSE ECG Diagnosis MUSE ECG Diagnosis MUSE ECG Diagnosis Confirmed by Adelfo Braga ([id number]) on 02/05/2025 10:19:23 AM MUSE ECG 02/05/2025 9:03 AM EDT 02/05/2025 10:19 AM EDT us Raúl Miller DO ECG ORDERABLES Final Resul t MUSE ECG documented in this encounter Visit Diagnoses Diagnosis Atypical chest pain- Primary Other chest pain Essential hypertension Unspecified essential hypertension Mixed dyslipidemia TIA (transient ischemic attack) Unspecified transient cerebral ischemia ACROLINE (obstructive sleep apnea) Obstructive sleep apnea (adult) (pediatric) Class 1 obesity documented in this encounter Additional Health Concerns Assessment Noted Time A fall risk assessment has been complete d for the patient 10/19/2024 2:10 PM EST A Body Mass Index follow-up plan has been documented for the patient 02/05/2025 9:45 AM EDT documented as of this encounter Care Teams Compound Mixer Relationship Specialty Start Date End Date Meli Gallardo APRN [address] [place] [address] PCP - General 02/17/21 documented as of this encounter
--- OUTSIDE RECORDS SUMMARY | 2025-02-19 08:40 | XMS_ITS | Encounter Summary ---
Author Organization [facility] Address [address] [place] [address] Care Team Providers Care Therapeutic Specialist Name Role Phone Meli Gallardo PHOSPHORIC ACID OPERATOR Primary Care Provider [phone] Reason for Visit * Reason Comments Consult * Consultation (Routine) - Closed Specialty Diagnoses / Procedures Referred By Estrellita alves Referred To Contact Diagnoses Lumbosacral radiculopathy Meli Gallardo, PHOSPHORIC ACID OPERATOR [address] [place] [address] Phone: tel: fax: Referral ID Status Reason Start Date Expiration Date Visits Re quested Visits Authorized [id number] Closed 01/06/2025 07/08/2026 1 1 Encounter Details Date Type Department Care Team (Late st Contact Info) Description 02/19/2025 8:40 AM EDT Consult [place] [facility] [address], [address] [place] [address] Annabelle Solorio, PHOSPHORIC ACID OPERATOR [address] [place] [address] Degeneration of intervertebral disc of lumbar 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 (Primary Dx); Lumbosacral radiculopathy; Right leg pain Social History Tobacco Use Types Packs/Day Years [...] 10/02/2024 How often do you attend chur or orthodox services? Never 10/02/2024 Do you belong to any clubs o r organizations such as temple groups, unions, fraternal or athletic groups, or [...] Recorded Patient Health Questionnaire-2 Score 0 02/24/2024 [facility] - Occupational Stress Questionnaire Answer Date Recorded [...] any time in the past 12 m [facility], were you homeless or living in a residential (including now)? No 10/02/2024 CAGE ASSESSMENT Answer [...] drink first t allison in the morning (EYE-METAL MINER BLASTING) to steady your nerves or to get rid of a hangover? 0 10/01/2024 CAGE Questionnaire Score 0 024 Utilities Answer Date Recorded In the past 12 months has th e [employer], gas, oil, or water company threatened to shut off services in your [...] Sign Reading Time Taken Comments Blood Pressure 110/73 02/19/2025 8:18 AM EDT Pulse - - Temperature - - Respiratory Rate - - Oxygen Saturation - - Inhaled Oxygen Concentration - - Weight 75.7 kg (166 lb 14.2 oz) 02/19/2025 8:18 AM EDT Height 154.9 cm (5' 1 ) 02/19/2025 8:18 AM EDT Body Mass Index 31.53 02/19/2025 8:18 AM EDT documented in this encounter Miscellaneous Notes * Progress Notes - Annabelle Solorio, PHOSPHORIC ACID OPERATOR - 02/19/2025 8:40 AM EDT We had the pleasure of seeing your patient in our clinic today for Neurosurgical consultation. I personally reviewed approximately 10 pages of new patient referral paperwork that was sent to the clinic. Chief Complaint: Back pain History Of Present Illness April Olvera is a 64 y.o. adult who presents to neurosurgical clinic today for consultation regarding her back pain. Patient states that she has had back pain for a long time. Patient states she hasback pain with radiation down her right leg. Patient states it goes down her leg laterally. Patienthas done physical therapy and injection therapy in the past with no significant long-term relief. Patient denies falls. Patient denies bowel bladder incontinence. Patient is unable to have an MRI do have bladder stimulator. Patient does not have any recent imaging. Patient does have numbness and tingling in her right leg along the same pattern as the pain. Patient is diabetic her last A1c was 6.9. Patient does not utilize tobacco products. Medical History[1] Surgical History[2] Family History[3] Social History[4] Current Outpatient Medications Medication Instructions amLODIPine (Norvasc) 10 MG tablet 1 tablet, Daily aspirin 81 mg, Daily atorvastatin (LIPITOR) 40 mg, Every evening busPIRone (BUSPAR) 10 mg, 2 times daily citalopram (CELEXA) 40 mg, Daily clopidogrel (Plavix) 75 MG tablet Take 1 tablet by mouth in the morning. cyanocobalamin (VITAMIN B-12) 50 mcg, Daily empagliflozin (JARDIANCE) 25 mg, Daily ergocalciferol (VITAMIN [...] Inject under the skin.Take once a week Allergies Cephalexin, Codeine, Erythromycin, Penicillins, Sulfa drugs, Sulfacetamide, Morphine, Penicillin g,Statins, Amoxicillin, Azithromycin, Cetirizine, Conjugated estrogens, Estrogens, and Morphine and codeine Review of Systems 14 point review of systems was performed and was negative except as noted per HPI. Visit Vitals BP 110/73 Ht 1.549 m (5' 1 ) Wt 75.7 kg (166 lb 14.2 oz) BMI 31.53 kg/m?? OB Status Hysterectomy Smoking Status Never BSA 1.8 m?? General Physical Exam Constitutional No acute distress. Patient is appropriate historian and cooperative throughout exam.Well nourished, well groomed. Alert and oriented x4. Head Normocephalic and atraumatic. Eyes Pupils are equal, round, and reactive to light. Neck No tracheal deviation or JVD noted. Cardiovascular Minimal to no peripheral edema, intact distal pulses Pulmonary/Chest No increased effort noted, no shortness of breath Neurological Alert and oriented to person, place, and time Skin Skin is warm and dry Psychiatric Normal mood and affect, behavior and judgment MUSCULOSKELETAL EXAM: Upper Extremity Motor Strength Right Left C5: Deltoid 5/5 5/5 C6: Biceps 5/5 5/5 C7: Triceps 5/5 5/5 C8: Flatbed Press Operator 5/5 5/5 T1: Intrinsics 5/5 5/5 Lower Extremity Motor Strength Right Left L2: Hip flexion (Iliopsoas) 4+/5 5/5 L3: Knee extension (Quad) 5/5 5/5 L4: Ankle DF (TA) 5/5 5/5 L5: Great Toe DF (EHL) / 5/5 S1: Ankle Pf, Foot Eversion (Peroneal longus/brevis) / 5/5 S2: Great toe flexion (FHL), Knee flexion /5 5/5 Sensation Right Left L2: Proximal anterior thigh Normal Normal L3: Mid anterior thigh Normal Normal L4: Medial leg/foot, great toe (Saphenous n.) Normal Normal L5: Dorsum of mid foot Normal Normal S1: Lateral leg/foot, little toe, Back of leg (Sural n.) Normal Normal Reflexes Right Left C5: Biceps 2/4 2/4 C6: Brachialis 2/4 2/4 C7: Triceps 2/4 2/4 L4: Patellar 2/4 2/4 S1: Achilles 2/4 2/4 SLR Negative Negative Clonus Negative Negative Hoffmans Negative Negative Imaging Patient did not have any imaging available for review today. Assessment and Plan April Olvera is a 64 y.o. adult presenting with history of low back and leg pain. Patient does nothave any recent imaging. We will order a myelogram to help determine any kind of stenosis or pathology. Patient will contact me once it is completed. I gave her office number. Patient we will get x-rays today as well. Once myelogram is received we will review and update kind of care. Patient was instructed to contact us with any issues or concerns. Annabelle Solorio APRN [facility] Department of Neurosurgery This note was dictated using voice to text software and may contain errors [1] Past Medical History: Diagnosis Date Anxiety Cerebrovascular accident (CMS/HCC) Class 1 obesity COVID-19 COVID-19 virus infection Diabetic neuropathy (CMS/HCC) Diaphragmatic hernia without obstruction or gangrene 03/30/2024 Former tobacco use GERD (gastroesophageal reflux disease) H/O renal calculi Hypertension Hypothyroidism IBS (irritable bowel syndrome) Mixed dyslipidemia PVD (peripheral vascular disease) (CMS/HCC) Sleep apnea TIA (transient ischemic attack) Type 2 diabetes mellitus [2] Past Surgical History: Procedure Laterality Date BLADDER SURGERY N/A stimulator CARDIAC CATHETERIZATION N/A cardiac catheterization from [facility] CARPAL TUNNEL RELEASE Bilateral Neuroplasty Median Nerve At Carpal Tunnel from [facility] CHOLECYSTECTOMY N/A Cholecystectomy from [facility] COLONOSCOPY ELBOW SURGERY Right tennis elbow HERNIA REPAIR 09/18/2024 HYSTERECTOMY KNEE SURGERY Bilateral arthroscopy LUMBAR FUSION OTHER SURGICAL HISTORY loop recorder PARAESOPHAGEAL HERNIA REPAIR 09/18/2024 SHOULDER SURGERY Right RCR THYROID SURGERY N/A Thyroid Surgery from [facility] UPPER GASTROINTESTINAL ENDOSCOPY [3] Family History Problem Relation Name Age of Onset Cardiac disorder Mother Diabetes Mother Hypertension Mother Obesity Mother Diabetes type II Mother Hyperlipidemia Mother Cardiac disorder Father Diabetes Father Hyperlipidemia Father Cardiac disorder Brother Hyperlipidemia Brother Cardiac disorder Maternal Grandmother Cardiac disorder Maternal Grandfather Stomach cancer Maternal Grandfather Hyperlipidemia Maternal Grandfather Cardiac disorder Paternal Grandmother Cardiac disorder Paternal Grandfather Cardiac disorder Other Anesthesia problems Neg Hx Malig Hyperthermia Neg Hx [4] Social History Tobacco Use Smoking status: Never Passive exposure: Never Smokeless tobacco: Never Vaping Use Vaping status: Never Used Substance Use Topics Alcohol use: No Drug use: Never Comment: Drug use: No drug use documented in this encounter Plan of Treatment Upcoming Encounters Date Type Department Care Team (Late st Contact Info) Description 04/19/2025 8:00 AM EDT Office Visit Medical Office Building Surgical Specialties [address], [address] [place] [address] Francisco J Amor MD [address] [place] [phone] 05/18/2025 7:30 AM EDT Appointment [facility] [address] [place] [address] Manuel Palacios MD [address] [place] [address] 08/13/2025 8:00 AM EST Office Visit [facility] [place] [facility] [address], [address] [place] [address] Raúl Miller, [address] [place] [address] documented as of this encounter Results * XR Scoliosis Entire Spine 2 or 3 Views (02/19/2025 9:17 AM EDT) Anatomical Region Laterality Modality Spine Digital Radiogra phy Impressions 02/19/2025 10:19 AM EDT Moderate degenerative disc changes at L3-L4 through L5-S1 without listhesis or instability. CRITICAL RESULT: No. COMMUNICATION: Per this written report. Drafted by Efe Drake MD on 02/19/2025 10:15 AM Final report signed by Efe Drake MD on 02/19/2025 10:19 AM Narrative 02/19/2025 10:19 AM EDT CLINICAL INDICATION: back pain TECHNIQUE: XR SCOLIOSIS ENTIRE SPINE 2 OR 3 VIEWS, XR LUMBAR SPINE 2 OR 3 VIEWS COMPARISON: May 31, 2021. FINDINGS: 2 views of the lumbar spine show disc space narrowing at L3-L4 through L5-S1. Vertebral alignment is normal. No instability in flexion or extension. No fracture or bone destruction. 2 views of the spine show right S3 nerve stimulator. Loop recorder projects over the left heart. No scoliotic curve. Coronal balance projects slightly to the right of midline. Sagittal balance is positive. No fracture or bone destruction. Sacroiliac joints are normal. No paraspinal mass. Hypoinflated chest with appropriate cardiac silhouette. Procedure Note Efe Drake MD - 02/19/2025 CLINICAL INDICATION: back pain TECHNIQUE: XR SCOLIOSIS ENTIRE SPINE 2 OR 3 VIEWS, XR LUMBAR SPINE 2 OR 3 VIEWS COMPARISON: May 31, 2021. FINDINGS: 2 views of the lumbar spine show disc space narrowing at L3-L4 throughL5-S1. Vertebral alignment is normal. No instability in flexion orextension. No fracture or bone destruction. 2 views of the spine show right S3 nerve stimulator. Loop recorderprojects over the left heart. No scoliotic curve. Coronal balance projectsslightly to the right of midline. Sagittal balance is positive. Nofracture or bone destruction. Sacroiliac joints are normal. No paraspinalmass. Hypoinflated chest with appropriate cardiac silhouette. IMPRESSION: Moderate degenerative disc changes at L3-L4 through L5-S1 withoutlisthesis or instability. CRITICAL RESULT: No. COMMUNICATION: Per this written report. Drafted by Efe Drake MD on 02/19/2025 10:15 AM Final report signed by Efe Drake MD on 02/19/2025 10:19 AM us Annabelle Solorio PHOSPHORIC ACID OPERATOR IMG XR PROCEDURES Final Resu lt * XR Lumbar Spine 2 or 3 Views (02/19/2025 9:17 AM EDT) Anatomical Region Laterality Modality Spine, L-spine Digital Radiogra phy Impressions 02/19/2025 10:19 AM EDT Moderate degenerative disc changes at L3-L4 through L5-S1 without listhesis or instability. CRITICAL RESULT: No. COMMUNICATION: Per this written report. Drafted by Efe Drake MD on 02/19/2025 10:15 AM Final report signed by Efe Drake MD on 02/19/2025 10:19 AM Narrative 02/19/2025 10:19 AM EDT CLINICAL INDICATION: back pain TECHNIQUE: XR SCOLIOSIS ENTIRE SPINE 2 OR 3 VIEWS, XR LUMBAR SPINE 2 OR 3 VIEWS COMPARISON: May 31, 2021. FINDINGS: 2 views of the lumbar spine show disc space narrowing at L3-L4 through L5-S1. Vertebral alignment is normal. No instability in flexion or extension. No fracture or bone destruction. 2 views of the spine show right S3 nerve stimulator. Loop recorder projects over the left heart. No scoliotic curve. Coronal balance projects slightly to the right of midline. Sagittal balance is positive. No fracture or bone destruction. Sacroiliac joints are normal. No paraspinal mass. Hypoinflated chest with appropriate cardiac silhouette. Procedure Note Efe Drake MD - 02/19/2025 CLINICAL INDICATION: back pain TECHNIQUE: XR SCOLIOSIS ENTIRE SPINE 2 OR 3 VIEWS, XR LUMBAR SPINE 2 OR 3 VIEWS COMPARISON: May 31, 2021. FINDINGS: 2 views of the lumbar spine show disc space narrowing at L3-L4 throughL5-S1. Vertebral alignment is normal. No instability in flexion orextension. No fracture or bone destruction. 2 views of the spine show right S3 nerve stimulator. Loop recorderprojects over the left heart. No scoliotic curve. Coronal balance projectsslightly to the right of midline. Sagittal balance is positive. Nofracture or bone destruction. Sacroiliac joints are normal. No paraspinalmass. Hypoinflated chest with appropriate cardiac silhouette. IMPRESSION: Moderate degenerative disc changes at L3-L4 through L5-S1 withoutlisthesis or instability. CRITICAL RESULT: No. COMMUNICATION: Per this written report. Drafted by Efe Drake MD on 02/19/2025 10:15 AM Final report signed by Efe Drake MD on 02/19/2025 10:19 AM Annabelle Solorio APRN IMG XR PROCEDURES Final Resu lt documented in this encounter Visit Diagnoses Diagnosis Degeneration of intervertebral disc of lumbar 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- Primary Lumbosacral radiculopathy Thoracic or lumbosacral neuritis or radiculitis, unspecified Right leg pain Pain in soft tissues of limb Lumbosacral radiculopathy Thoracic or lumbosacral neuritis or radiculitis, unspecified Lumbosacral radiculopathy Thoracic or lumbosacral neuritis or radiculitis, unspecified documented in this encounter Additional Health Concerns Assessment Noted Time A fall risk assessment has been complete d for the patient 02/19/2025 8:19 AM EDT A Body Mass Index follow-up plan has been documented for the patient 02/19/2025 2:55 PM EDT documented as of this encounter Care Teams Therapeutic Specialist Relationship Specialty Start Date End Date Meli Gallardo APRN [address] [place] [address] PCP - General 02/17/21 documented as of this encounter
--- OUTSIDE RECORDS SUMMARY | 2025-02-19 09:01 | XMS_ITS | Encounter Summary ---
Author Organization Healthcare Address [address] [place] [address] Care Team Providers Care Sailing Instructor Name Role Phone Meli Gallardo MIGUEL ANGEL Primary Care Provider [phone] Encounter Details Date Type Department Care Team (Latest Contact Info) Description 02/19/2025 9:01 AM EDT - 02/19/2025 11:59 PM EDT Hospital Encounter [facility] [address], [address] [place] [phone] Lumbosacral radiculopathy Discharge Disposition: Home or Self Care Social History Tobacco Use Types Packs/Day Years [...] often do you attend chur ch or mormon services? Never 10/02/2024 Do you belong to any clubs o r organizations such as anglican groups, unions, fraternal or athletic groups, or [...] Recorded Patient Health Questionnaire-2 Score 0 02/24/2024 [facility] - [facility]ational [facility] Questionnaire Answer Date Recorded [...] any time in the past 12 m [facility], were you homeless or living in a mcc (including now)? No 10/02/2024 CAGE ASSESSMENT Answer [...] drink first t allison in the morning (EYE-FINANCIAL PLANNING ADVISER) to steady your nerves or to get rid of a hangover? 0 10/01/2024 CAGE Questionnaire Score 0 024 Utilities Answer Date Recorded In the past 12 months has th e [employer], gas, oil, or water company threatened to shut off services in your home? No 10/02/2024 Comments No Sex and Gender Information Value Date Recorded Sex Assigned at Female 10/02/2023 1:40 PM EST Legal Sex Female 7:54 PM EDT Gender Identity Female 10/02/2023 1:40 PM EST Sexual Orientation Straight 02/08/2023 6: 04 AM EDT documented as of this encounter Medications at Time of Discharge amLODIPine (Norvasc) 10 MG tablet Take 1 tablet by mouth in the morning. aspirin 81 MG EC tablet Take 1 tablet by mouth in the morning. atorvastatin (Lipitor) 40 MG tablet Take 1 tablet by mouth every evening. 03/27/2024 busPIRone (Buspar) 10 MG tablet Take 1 tablet by mouth in the morning and 1 tablet before bedtime. 02/26/2021 citalopram (CeleXA) 40 MG tablet Take 1 tablet (40 mg) by mouth 1 (one) time each day. 10/19/2024 clopidogrel (Plavix) 75 MG tablet Take 1 tablet by mouth in the morning. 05/08/2017 cyanocobalamin 50 MCG tablet Take 1 tablet by mouth daily. empagliflozin (Jardiance) 25 MG Take 1 tablet by mouth in the morning. ergocalciferol 1.25 MG (69349 UT) capsule Take 1 capsule by mouth 1 (one) time per week. 03/14/2024 fluticasone (Flonase) 50 MCG/ACT nasal spray Administer 2 sprays into each nostril in the morning. 09/24/2024 gabapentin (Neurontin) 300 MG capsule Take 1 capsule by mouth daily. insulin NPH-insulin regular (HumuLIN 70/30 KWIKPEN) (70-30) 100 UNIT/ML injection pen Inject 15 Units under the skin 2 (two) times a day before meals. Hold if eating <50% of meal. 15 mL 09/20/2024 levothyroxine (Synthroid, Levoxyl) 137 MCG tablet Take 1 tablet by mouth daily before breakfast. 10/31/2018 lisinopril 20 MG tablet Take 1 tablet by mouth in the morning. 10/31/2018 naloxone (Narcan) 4 mg/0.1 mL nasal spray 1. Give 1 spray in nostril for no/slow breathing or cannot wake after opioid use 2. Call 911 3. Repeat in other nostril if symptoms continue 1 each 01/12/2025 Ozempic, 0.25 or 0.5 MG/DOSE, 2 MG/3ML solution pen-injector INJECT 0.25 MG WEEKLY SUBCUTANEOUSLY 12/16/2024 pantoprazole (Protonix) 40 MG EC tablet Take 1 tablet by mouth daily before breakfast. Do not crush, chew, or split. pen needle, diabetic 31G X 5 MM misc Use as directed with insulin pen. 100 each 11 09/20/2024 polyethylene glycol (MiraLax) 17 GM/SCOOP powder Take at 6pm - day before procedure. Mix Miralax 238 gram bottle with 64 ounces of Gatorade and refrigerate. Drink 8 ounces every 15 minutes starting at 6pm until completete. SSICOLON 238 g 01/12/2025 psyllium (Metamucil) 58.6 % powder Take 1 packet by mouth daily. 283 g 01/12/2025 Semaglutide, 1 MG/DOSE, (Ozempic, 1 MG/DOSE,) 4 MG/3ML solution pen-injector Inject under the skin. Take once a week documented as of this encounter Plan of Treatment Upcoming Encounters Date Type Department Care Team (Late st Contact Info) Description 04/19/2025 8:00 AM EDT Office Visit Medical Office Building Surgical Specialties [address], [address] [place] [address] Francisco J Amor MD [address] [place] [address] 05/18/2025 7:30 AM EDT Appointment [facility] [address] [place] [address] Manuel Palacios MD [address] [place] [phone] 08/13/2025 8:00 AM EST Office Visit [facility] [place] [address], [address] [place] [address] Raúl Miller, DO [address] [place] [address] documented as of this encounter Procedures Procedure Name Priority Date/Time Associated Diagnosis Comments XR LUMBAR SPINE 2 OR 3 VIEWS Routine 02/19/2025 9:17 AM EDT Lumbosacral radiculopathy documented in this encounter Results * XR Lumbar Spine 2 or 3 [...] documented in this encounter Visit Diagnoses Diagnosis Lumbosacral radiculopathy Thoracic or lumbosacral neuritis or radiculitis, unspecified documented in this encounter Additional Health Concerns Assessment Noted Time A fall risk assessment has been complete d for the patient 02/19/2025 8:19 AM EDT A Body Mass Index follow-up plan has been documented for the patient 02/19/2025 2:55 PM EDT documented as of this encounter Care Teams Sailing Instructor Relationship Specialty Start Date End Date Meli Gallardo APRN [address] [place] [address] PCP - General 02/17/21 documented as of this encounter
--- OUTSIDE RECORDS SUMMARY | 2025-02-19 09:01 | XMS_ITS | Encounter Summary ---
Author Organization Healthcare Address [address] [place] [address] Care Team Providers Care Social Worker Health Services Name Role Phone Meli Gallardo MIGUEL ANGEL Primary Care Provider [phone] Encounter Details Date Type Department Care Team (Latest Contact Info) Description 02/19/2025 9:01 AM EDT - 02/19/2025 11:59 PM EDT Hospital Encounter [facility] [address], [address] [place] [phone] Lumbosacral radiculopathy Discharge Disposition: Home or Self [...] often do you attend chur ch or sabianist services? Never 10/02/2024 Do you belong to [...] Recorded Patient Health Questionnaire-2 Score 0 02/24/2024 [facility] - Occupational Stress Questionnaire Answer Date Recorded [...] any time in the past 12 m [facility], were you homeless or living in a senior care (including now)? No 10/02/2024 CAGE ASSESSMENT Answer [...] drink first t allison in the morning (EYE-BUSINESS OBJECTS REPORT DEVELOPER) to steady your nerves or to get rid of a hangover? 0 10/01/2024 CAGE Questionnaire Score 0 024 Utilities Answer Date Recorded In the past 12 months has th e [employer], gas, oil, or water company threatened to [...] mouth in the morning. ergocalciferol 1.25 MG (96562 UT) capsule Take 1 capsule by mouth [...] Medical Office Building Surgical Specialties [address], [address] [place] [address] Francisco J Amor MD [address] [facility] [address] [place] [address] 05/18/2025 7:30 AM EDT Appointment [facility] [address] [place] [address] Manuel Palacios MD [address] [place] [phone] 08/13/2025 8:00 AM EST Office Visit [facility] [place] [address], [address] [place] [address] Raúl Miller, DO [address] [place] [address] documented as of this encounter Procedures Procedure Name Priority Date/Time Associated Diagnosis Comments XR SCOLIOSIS ENTIRE SPINE 2 OR 3 VIEWS Routine 02/19/2025 9:17 AM EDT Lumbosacral radiculopathy documented in this encounter Results * XR Scoliosis Entire [...] MD on 02/19/2025 10:19 AM Annabelle Solorio CARE DIRECTOR IMG XR PROCEDURES Final Resu lt documented [...] documented as of this encounter Care Teams Social Worker Health Services Relationship Specialty Start Date End Date Meli Gallardo APRN [address] [place] [address] PCP - General 02/17/21 documented as of this encounter
--- OUTSIDE RECORDS SUMMARY | 2025-03-25 20:38 | XMS_ITS | Encounter Summary ---
Author Organization Healthcare Address [address] [place] [address] Care Team Providers Care Music Theory Professor Name Role Phone Meli Gallardo BRICK MACHINE OPERATOR Primary Care Provider Reason for Visit * Reason Comments Abdominal Pain Encounter Details Date Type Department Care Team ([facility] st Contact Info) Description 03/25/2025 8:38 PM EDT - 03/26/2025 1:48 AM EDT Emergency [facility] Emergency Department [address] [place] [address] Salty Maldonado MD [facility] [place] [address] Ady Coleman MD [address] [place] [id number] Left lower quadrant abdominal pain (Primary Dx) Discharge Disposition: Home or Self Care Social [...] How often do you attend chur or jew services? Never 10/02/2024 Do you belong to any clubs o r organizations such as mormonism groups, unions, fraternal or athletic groups, or [...] Recorded Patient Health Questionnaire-2 Score 0 02/24/2024 [facility] - Occupational Stress Questionnaire Answer Date [...] any time in the past 12 m [facility], were you homeless or living in a [place] health care facility (including now)? 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 0 10/01/2024 CAGE Questionnaire Score 0 024 Utilities Answer Date Recorded In the past 12 months has th e electric, gas, oil, or water company threatened to [...] Sign Reading Time Taken Comments Blood Pressure 130/73 03/26/2025 1:28 AM EDT Pulse 83 03/26/2025 1:28 AM EDT Temperature 36.6 C (97.8 F) 03/26/2025 1:28 AM EDT Respiratory Rate 16 03/26/2025 1:47 AM EDT Oxygen Saturation 97% 03/26/2025 1:28 AM EDT Inhaled Oxygen Concentration - - Weight 72.6 kg (160 lb) 03/25/2025 8:29 PM EDT Height 154.9 cm (5' 1 ) 03/25/2025 8:29 PM EDT Body Mass Index 30.23 03/25/2025 8:29 PM EDT documented in this encounter Functional Status * Calculated C-SSRS Risk Score (Lifetime/Recent) Answer Date of Assessment Author No Risk Indicated 03/25/2025 9:03 PM EDT Wallace Vásquez * Question Answer Date of Assessment Author 1. Wish to be (Past 1 Month) No 025 9:03 PM EDT Maria Guadalupe Vásquez 2. Non-Specific Active Suici judy Thoughts (Past 1 Month) No 03/25/2025 9:03 PM EDT Maria Guadalupe Vásquez 6. Suicidal Behavior (Lifetime) No 9:03 PM EDT Maria Guadalupe Vásquez documented as of this encounter Discharge Instructions * Discharge Instructions* Margy Gomes MD - 03/26/2025 1:45 AM EDT You were seen in the emergency department for concerns of abdominal pain. There were not any concerning findings on your CT scan or blood work. If your symptoms worsen, change in characteristic or anything else concerns you please return to the emergency department. documented in this encounter Medications at Time of Discharge [...] mouth in the morning. ergocalciferol 1.25 MG (80364 UT) capsule Take 1 capsule by mouth [...] a week documented as of this encounter Miscellaneous Notes * ED Notes - Mat Jensen - 03/25/2025 8:38 PM EDT Needs [facility]G PIV! Mat Jensen 03/25/252037 * ED Provider Notes - Jessica Chirinos MD - 03/25/2025 8:23 PM EDT - HPI Chief Complaint Patient presents with Abdominal Pain Chief Complaint: Abdominal Pain April Olvera is a 64 y.o. adult with pmh of TIA, hypertension, diabetes, on aspirin presenting with a chief complaint of abdominal pain. According to patient she has been having left lower quadrant abdominal pain for the last 3 days. She has been taking care of a loved one in the hospital so she has not been paying attention to it but the pain has continued to worsen and now is making it difficult for her to walk. Patient has had diarrhea, and did have 1 episode of hematochezia about 3 days ago. Patient's has had pancreatitis, kidney stones, diverticulitis but the pain that she is having is somewhat different than each of these. She has had no nausea, vomiting, chest pain, shortness of breath Patient History Past Medical History[1] Surgical History[2] Family History[3] Social History[4] Allergies: Allergies[5] Physical Exam ED Triage Vitals [03/25/252028] Temp Heart Rate Resp BP 36.8 ??C (98.2 ??F) 98 18 136/79 SpO2 Temp Source Heart Rate Source Patient Position 99 % Oral -- Sitting BP Location FiO2 (%) Right arm -- Physical Exam Constitutional: General: She is not in acute distress. Appearance: She is not ill-appearing or toxic-appearing. HENT: Mouth/Throat: Mouth: Mucous membranes are moist. Eyes: Pupils: Pupils are equal, round, and reactive to light. Cardiovascular: Rate and Rhythm: Normal rate. Pulmonary: Effort: Pulmonary effort is normal. Abdominal: Tenderness: There is abdominal tenderness (Left lower quadrant). There is left CVA tenderness. Musculoskeletal: Right lower leg: No edema. Left lower leg: No edema. Skin: Capillary Refill: Capillary refill takes less than 2 seconds. Neurological: Mental Status: She is oriented to person, place, and time. Sensory: No sensory deficit. Motor: No weakness. No data recorded ED Course & MDM - Assessment: 64 y.o. adult presents to ED with complaint of abdominal pain. 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 , which currently is not at goal therapy. This complicates the clinical picture because it Comorbidities: complicates the clinical workup Differential Diagnosis: Kidney stone, pyelonephritis, diverticulitis Upon initial evaluation patient hemodynamically stable in no acute distress. Patient has multiple past medical comorbidities with a wide differential that could possibly be causing her pain. CT abdomen and pelvis was ordered and labs. Labs on my independent interpretation showed no anemia, no leukocytosis, elevated specific gravity of her urinalysis and was given fluid, no STEVEN. Patient was signedout pending CT scans. In order to fully explore the differential diagnosis the following treatments and tests were ordered: ED Medication Administration from 03/25/20252022 to 03/25/20252226 Date/Time Order Dose Route Action 03/25/20252142 EDT acetaminophen (Tylenol) tablet 1,000 mg 1,000 mg Oral Given 03/25/20252143 EDT HYDROmorphone (Dilaudid) injection 0.5 mg 0.5 mg Intravenous Given 03/25/20252144 EDT lactated Ringer's infusion 500 mL 500 mL Intravenous New Bag All Other Orders Ordered Status Ordering Provider 03/25/252029 Lipase STAT Acknowledged SALTY MALDONADO 03/25/252122 CT Abdomen Pelvis w IV Contrast Once Acknowledged JESSICA CHIRINOS Zuleyka 03/25/252029 CBC and Differential STAT Final result SALTY MALDONADO 03/25/252029 CMP STAT Final result SALTY MALDONADO 03/25/252029 Lactate, venous STAT Final result SALTY MALDONADO 03/25/252029 Test Qualitative Plasma STAT Final result SALTY MALDONADO 03/25/252029 Insert peripheral IV Once Acknowledged SALTY MALDONADO 03/25/252029 Urinalysis with reflex microscopic AND reflex culture (IF UTI SUSPECTED) STAT In process SALTY MALDONADO 03/25/252029 ED Protocol - HIV 1/2 Antibody/Antigen Screen w/Reflex to HIV 1/2 Differentiation Once Final result SALTY MALDONADO 03/25/252029 Urinalysis with reflex microscopic (Culture NOT Included) PROCEDURE ONCE Final result SALTY MALDONADO 03/25/252029 Urine Heaton Panel PROCEDURE ONCE In process SALTY MALDONADO 03/25/252029 ED HIV 1/2 Antibody/Antigen Screen w/Reflex to HIV 1/2 Differentiation PROCEDURE ONCE Final result SALTY MALDONADO Clinical Impressions as of 03/25/252226 Left lower quadrant abdominal pain Social Determinates of Health Risks (including Economic Stability, Education and level of understanding, Healthcare access and quality and concerning social factors): Poor health literacy Ultimately, this patient was was signed out to the [facility] (Signed Out) Patient care assumed by [facility] provider, DR. ghosh, at shift change, tentative plan at the time of sign-out was follow-up CT scan ED Prescriptions None - [1] Past Medical History: Diagnosis Date Anxiety [...] stimulator CARDIAC CATHETERIZATION N/A cardiac catheterization from [facility] CARPAL TUNNEL RELEASE Bilateral Neuroplasty Median Nerve At Carpal Tunnel from [facility] CHOLECYSTECTOMY N/A Cholecystectomy from [facility] COLONOSCOPY ELBOW SURGERY Right tennis elbow HERNIA REPAIR 09/18/2024 HYSTERECTOMY KNEE SURGERY Bilateral arthroscopy LUMBAR FUSION OTHER SURGICAL HISTORY loop recorder PARAESOPHAGEAL HERNIA REPAIR 09/18/2024 SHOULDER SURGERY Right RCR THYROID SURGERY N/A Thyroid Surgery from [facility] UPPER GASTROINTESTINAL ENDOSCOPY [3] Family History Problem [...] Neg Hx Malig Hyperthermia Neg Hx [4] Tobacco Use Smoking status: Never Passive exposure: Never Smokeless tobacco: Never Vaping Use Vaping status: Never Used Substance Use Topics Alcohol use: No Drug use: Never Comment: Drug use: No drug use [5] Allergies Allergen Reactions Cephalexin Hives, Rash and Shortness of breath Codeine Anaphylaxis and Hives Can tolerate lortab Erythromycin Hives, Shortness of breath and Rash Penicillins Hives, Rash, Shortness of breath and Itching Sulfa Drugs Rash and Shortness of breath Sulfacetamide Shortness of breath, Hives and Rash Morphine Itching and Hives Penicillin G Hives Statins Hives and Rash Elevated liver enzymes Amoxicillin Rash Azithromycin Rash Cetirizine Rash Conjugated Estrogens Other - please document in the comment field numbness BLE numbness Estrogens Other - please document in the comment field numbness Morphine And Codeine Other - please document in the comment field, Palpitations and Rash Heart races Jessica Chirinos MD Resident 03/25/252226 Cosigned by Salty Maldonado MD at 03/26/2025 11:18 PM EDT Associated attestation - Salty Maldonado MD - 03/26/2025 11:18 PM EDT I saw and evaluated the patient with the resident/fellow. I discussed the case with the resident/fellow and agree with the findings and plan as documented. * ED Triage Notes - Alejandrina Gomez, RN - 03/25/2025 8:23 PM EDT Pt arrives to ED w c/o abd pain and diarrhea for 3-4 days. Denies nausea or vomiting. * Progress Notes - Margy Gomes MD - 03/25/2025 8:23 PM EDT Images from the original note were not included. ED TRANSFER OF CARE NOTE Transferring provider: Ayan Chirinos Transferring attending: Dr. Maldonado JES Time: 2199 I received sign-out and accepted care of this patient from the previous ED providers caring for this patient. I reviewed the patient's history, exam, work- up, and treatment plan up to this point. Please see the primary ED Provider Note for complete elements of the history, physical exam, and ED course. PERTINENT HISTORY: In brief, April Olvera is a 64 y.o. adult with relevant PMH TIA, hypertension, diabetes, diverticulitis who presented to the ED for evaluation of abdominal pain. PENDING: I accepted care of this patient from the previous provider pending imaging results. Ultimately, imaging was not remarkable for any acute findings. See radiology report for final details. andthis was discussed with the patient, she had tolerated by mouth intake and her pain had improved. ED Medication Administration from 03/25/20252022 to 03/26/2025 0238 Date/Time Order Dose Route Action 03/25/20252142 EDT acetaminophen (Tylenol) tablet 1,000 mg 1,000 mg Oral Given 03/25/20252143 EDT HYDROmorphone (Dilaudid) injection 0.5 mg 0.5 mg Intravenous Given 03/25/20252144 EDT lactated Ringer's infusion 500 mL 500 mL Intravenous New Bag 03/25/2025 230 EDT lactated Ringer's infusion 500 mL 0 mL Intravenous Stopped 03/26/2025 0031 EDT iohexol (OMNIPaque) 300 MG/ML injection 100 mL 100 mL Intravenous Given 03/26/2025 0048 EDT HYDROmorphone (Dilaudid) injection 0.5 mg 0.5 mg Intravenous Given ED COURSE: Clinical Impressions as of 03/26/25 0238 Left lower quadrant abdominal pain Ultimately, this patient Was discharged Home (Discharge) The encounter diagnosis was Left lower quadrant abdominal pain. . Patient was counseledon the diagnoses. Discharge medications if any are listed below. Listed medications are thought be either curative for listed diagnoses or will help control ongoing symptoms. Patient is requested to follow up with Patient's Primary Care Provider in order to obtain routine follow-up. Instructions onfollow up as well as precautions to return to the ER provided verbally by the EM provider, as well as written in patients discharge education packet. ED Prescriptions None Discharge Instructions You were seen in the emergency department for concerns of abdominal pain. There were not any concerning findings on your CT scan or blood work. If your symptoms worsen, change in characteristic or anything else concerns you please return to the emergency department. Disposition Discharge AVS (Belgian Snapshot) - Printed 03/26/2025 Follow-Ups: Follow up with Meli Gallardo, BRICK MACHINE OPERATOR; As needed - Margy Gomes MD Cosigned by Ady Coleman MD at 03/27/2025 6:06 PM EDT Associated attestation - Ady Coleman MD - 03/27/2025 6:06 PM EDT Seen by resident only. documented in this encounter Plan of Treatment Upcoming Encounters Date Type Department Care Team (Late st Contact Info) Description 04/19/2025 8:00 AM EDT Office Visit Medical Office Building [facility] [address], [address] [place] [address] Francisco J Amor MD [address] [address] 05/18/2025 7:30 AM EDT Appointment [facility] [address] [place] [address] Manuel Palacios MD [address] [place] [address] 08/13/2025 8:00 AM EST Office Visit [facility] S[facility] [address], [address] [place] [address] Raúl Miller, [address] [place] [address] documented as of this encounter Goals Goal Patient Goal Type Associated Problems Recent Progress Patient-Stated? Author Autogenerat ed Goal Care Plan Autogenerated Problem No Radha Duran documented as of this encounter Procedures Procedure Name Priority Date/Time Associated Diagnosis Comments CT ABDOMEN PELVIS W IV CONTRAST STAT 03/26/2025 12:35 AM EDT LIPASE, PLASMA STAT 03/25/2025 10:29 PM EDT TEST QUALITATIVE PLASMA STAT 03/25/2025 9:22 PM EDT COMPREHENSIVE METABOLIC PANEL, PLASMA STAT 03/25/2025 9:22 PM EDT ED HIV 1/2 ANTIBODY/ANTIGEN SCREEN WITH REFLEX TO HIV I/II DIFFERENTIATION STAT 03/25/2025 9:11 PM EDT ED PROTOCOL HIV 1/2 ANTIBODY/ANTIGEN SCREEN W/REFLEX TO HIV 1/2 ANTIBODY DIFFERENTIATION STAT 03/25/2025 9:11 PM EDT LACTATE, VENOUS STAT 03/25/2025 9:05 PM EDT CBC WITH AUTO DIFFERENTIAL STAT 03/25/2025 9:03 PM EDT URINALYSIS WITH REFLEX MICROSCOPIC AND CULTURE STAT 03/25/2025 9:01 PM EDT URINE HEATON PANEL STAT 03/25/2025 9:01 PM EDT URINALYSIS WITH REFLEX MICROSCOPIC STAT 03/25/2025 9:01 PM EDT documented in this encounter Results * CT Abdomen Pelvis w IV Contrast (03/26/2025 12:35 AM EDT) Anatomical Region Laterality Modality Abdomen, Pelvis Computed Tomogra phy Impressions 03/26/2025 1:00 AM EDT No findings to account for left lower quadrant pain. CRITICAL RESULT: No. COMMUNICATION: Per this written report. Drafted by Mundo Adam MD on 03/26/2025 12:57 AM Final report signed by Mundo Adam MD on 03/26/2025 1:00 AM Narrative 03/26/2025 1:00 AM EDT CLINICAL INDICATION: Left lower quadrant pain, history of diverticulitis, kidney stones TECHNIQUE: Imaging of the abdomen and pelvis was performed, from lung bases through pubic symphysis, using spiral technique, following administration of IV contrast, Omnipaque 300, 100 mL. Delayed (excretory phase) images were performed through the kidneys. Reformatted images in the coronal and sagittal planes were generated from the axial data set to facilitate diagnostic accuracy. Total DLP (Dose-Length Product): 534.01 mGy.cm. Please note: The reported value represents the total of one or more individual components during the CT acquisition on this date and at this time, and as such, the same value may appear in more than one CT report depending on the interpreting/reporting physicians. COMPARISON: October 01, 2024 FINDINGS: Lung Bases: The lung bases are clear. Liver/Gallbladder/Biliary system: The liver demonstrates homogeneous enhancement. Cholecystectomy moderate-sized sliding hiatal hernia No intra- or extra-hepatic biliary ductal dilatation. Spleen: The spleen enhances homogeneously. Pancreas: The pancreas enhances homogeneously. Adrenals: The adrenals are morphologically unremarkable. Kidneys: The kidneys demonstrate symmetric nephrogram and excretion. No renal or ureteral calculi. No hydronephrosis. Bowel/Mesentery: The small bowel loops are not dilated. The large bowel loops are not dilated. The appendix is visualized and normal. Colonic diverticulosis with no diverticulitis. Vessels/Lymph Nodes: The abdominal aorta is unremarkable. No lymphadenopathy within the abdomen or pelvis. Fluid Survey: No free fluid in the abdomen. No free fluid in the pelvis. Pelvis: The pelvic viscera are unremarkable. Body Wall: Normal. Bones: No acute fracture. Procedure Note Mundo Adam MD - 03/26/2025 CLINICAL INDICATION: Left lower quadrant pain, history of diverticulitis, kidney stones TECHNIQUE: Imaging of the abdomen and pelvis was performed, from lung bases throughpubic symphysis, using spiral technique, following administration of IVcontrast, Omnipaque 300, 100 mL. Delayed (excretory phase) images wereperformed through the kidneys. Reformatted images in the coronal andsagittal planes were generated from the axial data set to facilitatediagnostic accuracy. Total DLP (Dose-Length Product): 534.01 mGy.cm. Please note: The reportedvalue represents the total of one or more individual components during theCT acquisition on this date and at this time, and as such, the same valuemay appear in more than one CT report depending on theinterpreting/reporting physicians. COMPARISON: October 01, 2024 FINDINGS: Lung Bases: The lung bases are clear. Liver/Gallbladder/Biliary system: The liver demonstrates homogeneousenhancement. Cholecystectomy moderate-sized sliding hiatal hernia Nointra- or extra-hepatic biliary ductal dilatation. Spleen: The spleen enhances homogeneously. Pancreas: The pancreas enhances homogeneously. Adrenals: The adrenals are morphologically unremarkable. Kidneys: The kidneys demonstrate symmetric nephrogram and excretion. Norenal or ureteral calculi. No hydronephrosis. Bowel/Mesentery: The small bowel loops are not dilated. The large bowelloops are not dilated. The appendix is visualized and normal. Colonicdiverticulosis with no diverticulitis. Vessels/Lymph Nodes: The abdominal aorta is unremarkable. Nolymphadenopathy within the abdomen or pelvis. Fluid Survey: No free fluid in the abdomen. No free fluid in the pelvis. Pelvis: The pelvic viscera are unremarkable. Body Wall: Normal. Bones: No acute fracture. IMPRESSION: No findings to account for left lower quadrant pain. CRITICAL RESULT: No. COMMUNICATION: Per this written report. Drafted by Mundo Adam MD on 03/26/2025 12:57 AM Final report signed by Mundo Adam MD on 03/26/2025 1:00 AM Salty Maldonado MD IMG CT PROCEDURES Final Resu lt * Lipase (03/25/2025 10:29 PM EDT) Lipase, Plasma 47 19 - 63 U/L 03/25/2025 10:46 PM EDT [facility] Blood Venous blood specimen / Unknown Venipuncture / Unknown 03/25/2025 10:29 PM EDT 03/25/2025 10:31 PM EDT Salty Maldonado MD LAB BLOOD ORDERABLES Final R esult Performing Organization Address City/[facility]/ZIP Co de Phone Number [facility] [address] [place] [address] * Test Qualitative Plasma (03/25/2025 9:22 PM EDT) Pathologist [facility] Test Negative Negative 03/25/2025 9:22 PM EDT [facility] Blood Venous blood specimen / Unknown 03/25/2025 9:01 PM EDT Narrative [facility] - 03/25/2025 9:22 PM EDT Reference Range: Males and non- females: Negative. us Salty Maldonado MD LAB BLOOD ORDERABLES Final R esult [facility] [address] [place] [address] * (ABNORMAL) CMP (03/25/2025 9:22 PM EDT) Glucose, Plasma 182(H) 74 - 99 mg/dL 03/25/2025 9:22 PM EDT [facility] BUN, Plasma 15 8 - 23 mg/dL 03/25/2025 9:22 PM EDT [facility] Creatinine, Plasma 0.76 0.60 - 1.10 mg/dL 03/25/2025 9:22 PM EDT [facility] BUN/Creatinine Ratio 20 03/25/2025 9:22 PM EDT [facility] Sodium, Plasma 141 136 - 145 mmol/L 03/25/2025 9:22 PM EDT [facility] Potassium, Plasma 4.7 3.6 - 4.9 mmol/L 03/25/2025 9:22 PM EDT [facility] Comment:Hemolyzed, result ma y be falsely increased. Chloride, Plasma 103 97 - 107 mmol/L 03/25/2025 9:22 PM EDT [facility] CO2, Plasma 22 22 - 29 mmol/L 03/25/2025 9:22 PM EDT [facility] Anion Gap 16 6 - 16 mmol/L 03/25/2025 9:22 PM EDT [facility] Total Calcium, Plasma 9.2 8.9 - 10.2 mg/dL 03/25/2025 9:22 PM EDT [facility] Total Protein 7.5 6.3 - 7.9 g/dL 03/25/2025 9:22 PM EDT [facility] Albumin, Plasma 4.8 3.5 - 5.2 g/dL 03/25/2025 9:22 PM EDT [facility] AST, Plasma 29 10 - 35 U/L 03/25/2025 9:22 PM EDT [facility] Comment:Hemolyzed, result ma y be falsely increased. ALT, Plasma 22 10 - 35 U/L 03/25/2025 9:22 PM EDT [facility] Alkaline Phosphatase, Plasma 123 46 - 142 U/L 03/25/2025 9:22 PM EDT [facility] Total Bilirubin, Plasma 0.6 0.2 - 1.1 mg/dL 03/25/2025 9:22 PM EDT [facility] eGFRcr 86.5 mL/min/1.7 3m*2 03/25/2025 9:22 PM EDT [facility] Comment:Reported eGFRcr in m L/min/1.73m2 is based the CKD-EPI 2020 equation that does not use a race coefficient. Blood Venous blood specimen / Unknown 03/25/2025 9:01 PM EDT Salty Maldonado MD LAB BLOOD ORDERABLES Final R esult Performing Organization Address City/[facility]/ZIP Co de Phone Number [facility] [address] [place] [address] * ED HIV 1/2 Antibody/Antigen Screen w/Reflex to HIV 1/2 Differentiation (03/25/2025 9:11 PM EDT) HIV 1 & 2 Antibody/Antigen Screen Non Reactive Non Reactive 03/25/2025 10:16 PM EDT [facility] Comment:Screening for HIV 1 & 2 antibodies, and P24 antigen is NONREACTIVE. No confirmatory testing is required. Blood Venous blood specimen / Unknown Venipuncture / Unknown 03/25/2025 9:11 PM EDT 03/25/2025 9:35 PM EDT Salty Maldonado MD LAB BLOOD ORDERABLES Final R esult Performing Organization Address City/[facility]/ZIP Co de Phone Number [facility] [address] [place] [address] * Lactate, venous (03/25/2025 9:05 PM EDT) Lactate, Venous, Whole Blood 1.9 0.5 - 2.2 mmol/L LAB HEMATOLOGY METHOD 03/25/2025 9:05 PM EDT [facility] Blood Venous blood specimen / Unknown 03/25/2025 9:03 PM EDT Salty Maldonado MD LAB BLOOD ORDERABLES Final R esult Performing Organization Address City/[facility]/ZIP Co de Phone Number [facility] [address] [place] [address] * (ABNORMAL) CBC and Differential (03/25/2025 9:03 PM EDT) WBC Count 7.39 3.70 - 10.30 10*3/uL LAB HEMATOLOGY METHOD 03/25/2025 9:03 PM EDT [facility] RBC Count 5.22(H) 3.90 - 5.20 10*6/uL LAB HEMATOLOGY METHOD 03/25/2025 9:03 PM EDT [facility] HGB 15.7 11.2 - 15.7 g/dL LAB HEMATOLOGY METHOD 03/25/2025 9:03 PM EDT [facility] HCT 46.1(H) 34.0 - 45.0 % LAB HEMATOLOGY METHOD 03/25/2025 9:03 PM EDT [facility] Platelet Count 203 155 - 369 10*3/uL LAB HEMATOLOGY METHOD 03/25/2025 9:03 PM EDT [facility] MCV 88 79 - 98 fL LAB HEMATOLOGY METHOD 03/25/2025 9:03 PM EDT [facility] MCH 30.1 26.0 - 32.0 pg LAB HEMATOLOGY METHOD 03/25/2025 9:03 PM EDT [facility] MCHC 34.1 30.7 - 35.5 g/dL LAB HEMATOLOGY METHOD 03/25/2025 9:03 PM EDT [facility] RDW 13.4 11.5 - 14.5 % LAB HEMATOLOGY METHOD 03/25/2025 9:03 PM EDT [facility] MPV 10.4 8.8 - 12.5 fL LAB HEMATOLOGY METHOD 03/25/2025 9:03 PM EDT [facility] nRBC 0.0 <=0.0 per 100 WBCs LAB HEMATOLOGY METHOD 03/25/2025 9:03 PM EDT [facility] Differential Type Automated LAB HEMATOLOGY METHOD 03/25/2025 9:03 PM EDT [facility] Neutrophils % 61 % LAB HEMATOLOGY METHOD 03/25/2025 9:03 PM EDT [facility] Lymphocytes % 27 % LAB HEMATOLOGY METHOD 03/25/2025 9:03 PM EDT [facility] Monocytes % 9 % LAB HEMATOLOGY METHOD 03/25/2025 9:03 PM EDT [facility] Eosinophils % 2 % LAB HEMATOLOGY METHOD 03/25/2025 9:03 PM EDT [facility] Basophils % 1 % LAB HEMATOLOGY METHOD 03/25/2025 9:03 PM EDT [facility] Immature Granulocytes % 0 % LAB HEMATOLOGY METHOD 03/25/2025 9:03 PM EDT [facility] Neutrophils Absolute 4.54 1.60 - 6.10 10*3/uL LAB HEMATOLOGY METHOD 03/25/2025 9:03 PM EDT [facility] Lymphocytes Absolute 1.97 1.20 - 3.90 10*3/uL LAB HEMATOLOGY METHOD 03/25/2025 9:03 PM EDT [facility] Monocytes Absolute 0.64 0.30 - 0.90 10*3/uL LAB HEMATOLOGY METHOD 03/25/2025 9:03 PM EDT [facility] Eosinophils Absolute 0.16 0.00 - 0.50 10*3/uL LAB HEMATOLOGY METHOD 03/25/2025 9:03 PM EDT [facility] Basophils Absolute 0.05 0.00 - 0.10 10*3/uL LAB HEMATOLOGY METHOD 03/25/2025 9:03 PM EDT [facility] Immature Granulocytes Absolute 0.03 0.00 - 0.06 10*3/uL LAB HEMATOLOGY METHOD 03/25/2025 9:03 PM EDT [facility] Blood Venous blood specimen / Unknown 03/25/2025 9:01 PM EDT Narrative [facility] - 03/25/2025 9:03 PM EDT Therapeutic decision making should be based on absolute values, rather than percentages. us Salty Maldonado MD LAB BLOOD ORDERABLES Final R esult [facility] [address] [place] [address] * Urine [place] Panel (03/25/2025 9:01 PM EDT) Extra Reflex urine culture not indicated 03/26/2025 6:01 AM EDT [facility] Comment: Previously prelim verified as Specimen evaluation in progress on 03/25/2025 at 2301 EDT. Previously prelim verified as Specimen evaluation in progress on 03/26/2025 at 0002 EDT. Previously prelim verified as Specimen evaluation in progress on 03/26/2025 at 0103 EDT. Previously prelim verified as Specimen evaluation in progress on 03/26/2025 at 0202 EDT. Previously prelim verified as Specimen evaluation in progress on 03/26/2025 at 0302 EDT. Previously prelim verified as Specimen evaluation in progress on 03/26/2025 at 0402 EDT. Previously prelim verified as Specimen evaluation in progress on 03/26/2025 at 0502 EDT. Urine Urine specimen obtained by clean catch procedure / Unknown Non-blood Collection / Unknown 03/25/2025 9:01 PM EDT 03/25/2025 9:10 PM EDT us Salty Maldonado MD LAB URINE ORDERABLES Final R esult [facility] [address] [place] [address] * (ABNORMAL) Urinalysis with reflex microscopic (Culture NOT Included) (03/25/2025 9:01 PM EDT) Color, Urine Yellow LAB URINALYSIS - AUTOMATED METHOD 03/25/2025 9:27 PM EDT [facility] Clarity, Urine Clear LAB URINALYSIS - AUTOMATED METHOD 03/25/2025 9:27 PM EDT [facility] Spec [place], Urine >1.030(H) 1.005 - 1.030 LAB URINALYSIS - AUTOMATED METHOD 03/25/2025 9:27 PM EDT [facility] pH, Urine 5.5 5.0 - 8.0 LAB URINALYSIS - AUTOMATED METHOD 03/25/2025 9:27 PM EDT [facility] Protein, Urine Negative Negative mg/dL LAB URINALYSIS - AUTOMATED METHOD 03/25/2025 9:27 PM EDT [facility] Glucose, Urine >=1000(A) Negative mg/dL LAB URINALYSIS - AUTOMATED METHOD 03/25/2025 9:27 PM EDT [facility] Ketones, Urine Trace(A) Negative mg/dL LAB URINALYSIS - AUTOMATED METHOD 03/25/2025 9:27 PM EDT [facility] Blood, Urine Negative Negative LAB URINALYSIS - AUTOMATED METHOD 03/25/2025 9:27 PM EDT [facility] Bilirubin, Urine Negative Negative LAB URINALYSIS - AUTOMATED METHOD 03/25/2025 9:27 PM EDT [facility] Urobilinogen, Urine 0.2 0.2 to 1.0 mg/dL LAB URINALYSIS - AUTOMATED METHOD 03/25/2025 9:27 PM EDT [facility] Leukocytes, Urine Negative Negative LAB URINALYSIS - AUTOMATED METHOD 03/25/2025 9:27 PM EDT [facility] Nitrite, Urine Negative Negative LAB URINALYSIS - AUTOMATED METHOD 03/25/2025 9:27 PM EDT [facility] Urine Urine specimen obtained by clean catch procedure / Unknown Non-blood Collection / Unknown 03/25/2025 9:01 PM EDT 03/25/2025 9:10 PM EDT us Salty Maldonado MD LAB URINE ORDERABLES Final R esult [facility] [address] [place] [address] documented in this encounter Visit Diagnoses Diagnosis Left lower quadrant abdominal pain- Primary documented in this encounter Administered Medications Inactive Administered Medications - up to 3 most recent administrations Medication Order MAR Action Action Date Dose Rate Site acetaminophen (Tylenol) tablet 1,000 mg 1,000 mg, Oral, Once, 1 dose, On Sat03/25/25 at 2130, STAT Given 03/25/2025 9:43 PM EDT 1,000 mg HYDROmorphone (Dilaudid) injection 0.5 mg 0.5 mg, Intravenous, Once, 1 dose, On Sat03/25/25 at 2130, STAT Given 03/25/2025 9:44 PM EDT 0.5 mg HYDROmorphone (Dilaudid) injection 0.5 mg 0.5 mg, Intravenous, Once, 1 dose, On Sat03/26/25 at 0045, STAT Given 03/26/2025 12:48 AM EDT 0.5 mg iohexol (OMNIPaque) 300 MG/ML injection 100 mL 100 mL, Intravenous, Once in imaging, 1 dose, Starting on Sat03/26/25 at 0030, Until Sat03/26/25 at 0031, Routine, Imaging Protocol Orders Given 03/26/2025 12:31 AM EDT 100 mL lactated Ringer's infusion 500 mL 500 mL, Intravenous, Once (Bolus), 1 dose, On Ashli 03/25/25 at 2130, STAT New Bag 03/25/2025 9:45 PM EDT 500 mL documented in this encounter Active and Recently Administered Medications Times are shown in EDT. Scheduled Medication Order 03/24/2025 03/25/2025 03/26/2025 acetaminophen (Tylenol) tablet 1,000 mg (COMPLETED) 1,000 mg, Oral, Once, 1 dose, On Ashli 03/25/25 at 2130, STAT 2143 (Given - Provider: Maria Guadalupe Vásquez) HYDROmorphone (Dilaudid) injection 0.5 mg (COMPLETED) 0.5 mg, Intravenous, Once, 1 dose, On Ashli 03/25/25 at 2130, STAT 2144 (Given - Provider: Maria Guadalupe Vásquez) HYDROmorphone (Dilaudid) injection 0.5 mg (COMPLETED) 0.5 mg, Intravenous, Once, 1 dose, On Sat03/26/25 at 0045, STAT 0048 (Given - Provid er: Maria Guadalupe Vásquez) iohexol (OMNIPaque) 300 MG/ML injection 100 mL (COMPLETED) 100 mL, Intravenous, Once in imaging, 1 dose, Starting on Sat03/26/25 at 0030, Until Sat03/26/25 at 0031, Routine, Imaging Protocol Orders 0031 (Given - Provid er: Sarah Quijano) lactated Ringer's infusion 500 mL (COMPLETED) 500 mL, Intravenous, Once (Bolus), 1 dose, On Ashli 03/25/25 at 2130, STAT 2145 (New Bag - Provider: Maria Guadalupe Vásquez)2300 (Stopped - Provider: Maria Guadalupe Vásquez) documented in this encounter Additional Health Concerns Active Problems Noted Date Diagnosed Date Autogenerated Problem 03/15/2025 Assessment Noted Time A fall risk assessment has been complete d for the patient 02/19/2025 8:19 AM EDT A Body Mass Index follow-up plan has been documented for the patient 02/19/2025 2:55 PM EDT documented as of this encounter Care Teams Music Theory Professor Relationship Specialty Start Date End Date Meli Gallardo APRN [address] [place] [address] PCP - General 02/17/21 documented as of this encounter
--- OUTSIDE RECORDS SUMMARY | 2025-04-06 07:30 | XMS_ITS | Encounter Summary ---
Author Organization Healthcare Address [address] [place] [address] Care Team Providers Care Firesetter Name Role Phone Meli Gallardo PROFILE STITCHING MACHINE OPERATOR Primary Care Provider [phone] Encounter Details Date Type Department Care Team (Late st Contact Info) Description 02/19/2025 [facility]phone [facility] [address], [address] [place] [address] Annabelle Solorio APRN [address] [place] [address] Social History Tobacco Use Types Packs/Day Years [...] How often do you attend chur or jehovah's witness services? 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 Was inquiring about scheduling of myelogram. Advised still pending INS approval, needing peer to peer. Once completed will send to who will then contact him for scheduling. Verbalized understanding. * Telephone Encounter - Francisca Kumar - 03/03/2025 3:10 PM EDT Patient Phone Message Reason for Call: Patient is returning call. Please have Annabelle call back Best contact number and optimal time of day to reach caller: [phone] April Note: Please do not reply to this message. Follow-up communication and further actions as a result of this message need to be communicated with the patient directly, if the patient is not active onMyChart. If the patient is active on MyChart, they will receive notification of the communication/outcome via MyChart. * Telephone Encounter - Annabelle Solorio APRN - 02/26/2025 10:10 AM EDT Left detailed message for the patient. Myelogram order put in for [facility] because I believe that they will be faster. Please let me know if she contact us back. * Telephone Encounter - Orin Pedraza - 02/26/2025 9:53 AM EDT Patient Phone Message Reason for Call: Pt calling back to see if the appts have been set up. Please advise Best contact number and optimal time of day to reach caller: [phone]/pt Note: Please do not reply to this message. Follow-up communication and further actions as a result of this message need to be communicated with the patient directly, if the patient is not active onMyChart. If the patient is active on MyChart, they will receive notification of the communication/outcome via MyChart. * Telephone Encounter - Annabelle Solorio APRN - 02/19/2025 2:02 PM EDT Spoke with patient and discussed x-ray results. Nothing emergent at this time. We will go forward with myelogram. * Telephone Encounter - Kiersten Marvin - 02/19/2025 1:36 PM EDT Patient Phone Message Reason for Call: Patient calling for xray results Best contact number and optimal time of day to reach caller: [phone] Note: Please do not reply to this message. Follow-up communication and further actions as a result of this message need to be communicated with the patient directly, if the patient is not active onMyChart. If the patient is active on MyChart, they will receive notification of the communication/outcome via MyChart. * Telephone Encounter - Mik Agustin - 02/19/2025 11:15 AM EDT Patient Phone Message Reason for Call: Patient calling for xray results from this morning to discuss Best contact number and optimal time of day to reach caller: [phone] Note: Please do not reply to this message. Follow-up communication and further actions as a result of this message need to be communicated with the patient directly, if the patient is not active onMyChart. If the patient is active on MyChart, they will receive notification of the communication/outcome via MyChart. documented in this encounter Plan of Treatment Upcoming Encounters Date Type Department Care Team (Late st Contact Info) Description 04/19/2025 8:00 AM EDT Office Visit Medical Office Building Surgical Specialties [address] [facility], [address] [place] [address] Francisco J Amor MD [address] [address] 05/18/2025 7:30 AM EDT Appointment [facility] [address] [place] [address] Manuel Palacios MD [address] [place] [address] 08/13/2025 8:00 AM EST Office Visit [facility] [place] [address], [address] [place] [address] Raúl Miller DO [address] [place] [address] documented as of this encounter Visit Diagnoses Not on filedocumented in this encounter Additional Health Concerns Assessment Noted Time A fall risk assessment has been complete d for the patient 02/19/2025 8:19 AM EDT A Body Mass Index follow-up plan has been documented for the patient 02/19/2025 2:55 PM EDT documented as of this encounter Care Teams Firesetter Relationship Specialty Start Date End Date Meli Gallardo, PROFILE STITCHING MACHINE OPERATOR [address] [place] [address] PCP - General 02/17/21 documented as of this encounter
--- OUTSIDE RECORDS SUMMARY | 2025-04-06 07:30 | XMS_ITS | Encounter Summary ---
Author Organization Healthcare Address [address] [place] [address] Care Team Providers Care Supply Person Name Role Phone Meli Gallardo MIGUEL ANGEL Primary Care Provider [phone] Encounter Details Date Type Department Care Team (Latest Contact Info) Description 02/19/2025 Travel Social History Tobacco Use Types Packs/Day Years [...] How often do you attend chur or restoration services? 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 [address] [place] [address] 05/18/2025 7:30 AM EDT Appointment [facility] [address] [place] [address] Manuel Palacios MD [address] [place] [address] 08/13/2025 8:00 AM EST Office Visit [facility] [place] [address] [facility], [address] [place] [address] Raúl Miller, DO [address] [place] [address] documented as of this encounter Visit Diagnoses Not on filedocumented in this encounter Additional Health Concerns Assessment Noted Time A fall risk assessment has been complete d for the patient 02/19/2025 8:19 AM EDT A Body Mass Index follow-up plan has been documented for the patient 02/19/2025 2:55 PM EDT documented as of this encounter Care Teams Supply Person Relationship Specialty Start Date End Date Meli Gallardo APRN [address] [place] [address] PCP - General 02/17/21 documented as of this encounter
--- NOTE | 2025-04-06 07:31 | IR_ITS ---
FINAL REPORT CLINICAL HISTORY: lumbar radiculopathy fluoro time: 1.55 min 91.06 mgy FINDINGS: LUMBAR PUNCTURE AND MYELOGRAM UNDER FLUOROSCOPY HISTORY: Lumbar spine pain with radiculopathy. ATTENDING RADIOLOGIST: Dr. Meléndez. PHYSICIAN KNIFE SETTER GRINDER MACHINE: Lucinao Short PA-C. Fluoroscopy Time: 1 minute 55 seconds Radiation dose in reference to Air-Kerma: 91.06 mGy. PROCEDURE: After informed consent was obtained and time-out procedure performed, the patient was placed in the prone position in the fluoroscopic suite. The L3-L4 level of the lumbar spine was localized under fluoroscopic guidance and marked on the skin appropriately. The patient was then prepped and draped in the usual sterile fashion and the skin was anesthetized with 1% lidocaine. A lumbar puncture was then performed under direct fluoroscopic guidance at the L3-L4 level using a 20-gauge 3 1/2'' needle. Approximately 12 mL of Isovue-M 200 was gently injected into the thecal sac for myelogram. The patient tolerated the procedure well and there were no immediate complications. Contrast is identified in the thecal sac. There is multilevel degenerative change, most pronounced at the L4-L5 level. There is no subluxation. No abnormal movement is identified on flexion or extension views. IMPRESSION: Successful lumbar puncture for myelogram under direct fluoroscopic guidance as above. Multilevel degenerative change. Please see CT myelogram report. Reviewed, Interpreted and Dictated by Gelacio Meléndez MD Transcribed by DOMONIQUE Oliveira Authenticated and [facility]
--- OUTSIDE RECORDS SUMMARY | 2025-04-06 07:31 | XMS_ITS | Encounter Summary ---
Author Organization [facility] Address [address] [id number] Care Team Providers Care Mass Spectrometry Specialist Name Role Phone Meli Gallardo Fabiola MICHELLE Primary Care Provider [phone] Reason for Referral * Consultation (Routine) - Closed Specialty Diagnoses / Procedures Referred By Estrellita alves Referred To Contact Hand Surgery Diagnoses Trigger index finger of left hand Jefry Zayas Chase T, MD [address] [address] Phone: tel: fax: Referral ID Status Reason Start Date Expiration Date Visits Re quested Visits Authorized [id number] Closed 09/11/2023 03/12/2025 1 1 Encounter Details Date Type Department Care Team (Late Contact Info) Description 09/11/2023 Community [facility] [address] [place] [address] Jefry Zayas Trigger index finger of left hand (Primary Dx) Social History Tobacco Use Types Packs/Day Years Used Date Smoking Tobacco: Never Smokeless Tobacco: Never Alcohol Use Standard Drinks/Week Comments No 0 (1 standard drink = 0.6 oz pur e alcohol) Comments No Sex and Gender Information Value [...] Medical Office Building Surgical Specialties [address] [facility], [address] [place] [address] Francisco J Amor MD [address] [facility] [address] [place] [address] 05/18/2025 7:30 AM EDT Appointment [facility] [address] [place] [address] Manuel Palacios MD [address] [place] [address] 08/13/2025 8:00 AM EST Office Visit [facility] [place] [address] [facility] [address], [address] [place] [address] Raúl Miller, [address] [place] [address] Scheduled Referrals Name Type Priority Associated Diagnoses Order Schedule Ambulatory referral to Orthopaedics Hand Outpatient Referral Routine Trigger index finger of left hand Expected: 09/11/2023 (Approximate), Expires: 03/12/2025 documented as of this encounter Visit Diagnoses Diagnosis Trigger index finger of left hand- Primary documented in this encounter Additional Health Concerns Assessment Noted Time A fall risk assessment has been complete d for the patient 05/08/2021 9:07 AM EDT documented as of this encounter Care Teams Mass Spectrometry Specialist Relationship Specialty Start Date End Date Meli Gallardo APRN [address] [place] [id number] PCP - General 02/17/21 documented as of this encounter
--- OUTSIDE RECORDS SUMMARY | 2025-04-06 07:31 | XMS_ITS | Clinical Summary ---
Author Organization [facility] ([place], [place], [place], [place]) Address [address] [place] [address] Care Team Providers Care Boat Garnisher Name Role Phone Meli Gallardo APRN Primary Care Provider [phone] Allergies Active Allergy Reactions Criticality Noted Date Comments Codeine Rash Low 10/31/2022 Erythromycin Rash Low 10/31/2022 Cephalexin Rash Low 10/31/2022 Morphine Other (See Comments) 10/31/2022 Heart races Penicillin Rash Low 10/31/2022 Sulfa (Sulfonamide Antibiotics) Rash Low 10/31/2022 Medications levothyroxine (SYNTHROID, LEVOTHROID) 137 MCG tablet Take 1 tablet (137 mcg total) by mouth Every morning on an empty stomach. 11/28/19 23 Active isosorbide mononitrate (IMDUR) 60 MG 24 hr tablet Take 1 tablet (60 mg total) by mouth daily. 10/18/19 23 Active ergocalciferol (ERGOCALCIFEROL ) 1,250 mcg (50,000 unit) capsule Take 1 capsule (50,000 Units total) by mouth once a week. 11/23/19 23 Active aspirin 81 MG EC tablet Take 1 tablet (81 mg total) by mouth daily. 08/20/20 22 Active amLODIPine (NORVASC) 10 MG tablet Take 1 tablet (10 mg total) by mouth daily. 07/18/20 22 Active citalopram (CeleXA) 40 MG tablet Take 1 tablet (40 mg total) by mouth daily. 05/25/20 22 Active lisinopriL (PRINIVIL,ZESTR IL) 20 MG tablet Take 1 tablet (20 mg total) by mouth daily. 12/03/19 Active empagliflozin (Jardiance) 25 mg tablet Take 1 tablet (25 mg total) by mouth daily. 05/15/20 22 Active insulin lispro protamine-insul in lispro (HumaLOG 75-25) 100 unit/mL (75-25) Susp injection Inject 42 Units subcutaneously 2 (two) times daily before meals. Active furosemide (LASIX) 20 MG tablet Take 1 tablet (20 mg total) by mouth daily. 11/18/19 Active clopidogreL (PLAVIX) 75 mg tablet Take 1 tablet (75 mg total) by mouth daily. 10/31/19 Active fluticasone propionate (FLONASE) 50 mcg/actuation nasal spray 2 sprays by Nasal route daily as needed for Rhinitis. 10/03/20 Active carvediloL (COREG) 25 MG tablet Take 1 tablet (25 mg total) by mouth 2 (two) times daily. Active spironolactone (ALDACTONE) 25 MG tablet Take 1 tablet (25 mg total) by mouth daily. Active traZODone (DESYREL) 100 MG tablet Take 1 tablet (100 mg total) by mouth nightly. Active omeprazole (PriLOSEC) 40 MG capsule Take 1 capsule (40 mg total) by mouth daily. Active semaglutide (Ozempic) 0.25 mg or 0.5 mg(2 mg/1.5 mL) PnIj Inject 0.1875 mLs (0.25 mg total) subcutaneously once a week. Active SITagliptin phosphate (JANUVIA) 100 MG tablet Take 1 tablet (100 mg total) by mouth daily. Active Ozempic 1 mg/dose (4 mg/3 mL) PnIj Inject 1 mg subcutaneously once a week. 12/23/19 24 Active Active Problems Problem Noted Date Diagnosed Date Ischemic stroke 12/03/2023 Acute CVA (cerebrovascular accident) 12/03/2023 Social History Tobacco Use Types Packs/Day Years Used Date Smoking Tobacco: Never Smokeless Tobacco: Never Alcohol Use Standard Drinks/Week Comments Never 0 (1 standard drink = 0.6 oz pur e alcohol) PRAPARE - Transportation Answer Date Re corded In the past 12 months, has l ack of transportation kept you from medical appointments or from getting medications? No 12/05/2023 Lack of Transportation (Non-Medical) Not on file 12/05/2023 Utilities Answer Date Recorded In the past 12 months, has t he electric, gas, oil, or water company threatened to shut off services in your home? No 12/04/2023 Food Insecurity Answer Date Recorded Within the past 12 months, y ou worried that your food would run out before you got money to buy more. Never true 12/04/2023 Within the past 12 months, t he food you bought just didn't last and you didn't have money to get more. Never true 12/04/2023 Transportation Needs Answer Date Record ed In the past 12 months, has l ack of reliable transportation kept you from medical appointments, meetings, work or from getting things needed for daily living? No 12/04/2023 Financial Resource Strain Answer Date R ecorded How hard is it for you to pa y for the very basics like food, housing, medical care, and heating? Would you say it is: Not hard at all 12/04/2023 Employment Answer Date Recorded Do you want help finding or keeping work or a job? I do not need or want help 12/04/2023 Family and Community Support Answer Isidro e Recorded If for any reason you need h elp with day-to-day activities such as bathing, preparing meals, shopping, managing finances, etc., do you get the help you need? I don't need any help 12/04/2023 Feeling Lonely or Isolated 0 12/04 Educational Attainment Answer Date Jeff rded Do you speak a language other than [place] at [facility]? No 12/04/2023 Do you want help with school or training? For example, starting or completing job training or getting a high school diploma, GED or equivalent. No 12/04/2023 Physical Activity Answer Date Recorded Number of minutes of exercise per week 90 12/04/2023 Substance Use Answer Date Recorded How many times in the past y ear have you used prescription drugs for non-medical reasons? Never 12/04/2023 How many times in the past year have you used [place] legal drugs? Never 12/04/2023 Comments No Sex and Gender Information Value Date Recorded Sex Assigned at Not on file Legal Sex Female 1:47 PM CDT Gender Identity Not on file Sexual Orientation Not on file Last Filed Vital Signs Vital Sign Reading Time Taken Comments Blood Pressure 138/90 01/03/2024 10:04 AM EDT Pulse 78 01/03/2024 10:04 AM EDT Temperature 36.8 C (98.2 F) 12/05/2023 8:00 AM EST Respiratory Rate 18 12/05/2023 4:00 PM EST Oxygen Saturation 95% 12/05/2023 4:00 PM EST Inhaled Oxygen Concentration - - Weight 84.4 kg (186 lb) 01/03/2024 10:04 AM EDT Height 154.9 cm (5' 1 ) 01/03/2024 10:04 AM EDT Body Mass Index 35.14 01/03/2024 10:04 AM EDT Plan of Treatment Health Maintenance Due Date Last Done Comments CT Colonography 1958 Colonoscopy 1958 Colorectal Cancer Screening 1958 DXA SCAN 1958 Diabetic Kidney Health Evalu ation (KED) 1958 FOBT/FIT 1958 Fit-DNA (Cologuard) 1958 Sigmoidoscopy 1958 Diabetic Eye Exam 1968 Depression Screening (12+) 1970 Hepatitis C Screening 1976 Pneumococcal 50+ years (1 of 2 - PCV) 1977 Breast Cancer Screening 1998 Shingles Vaccine (Zoster) (1 of 2) 2008 Respiratory Syncytial Virus (RSV) Adult or (1 - Risk 60-74 years 1-dose series) 2018 DTAP/TDAP/TD VACCINES (2 - T d or Tdap) 10/09/2020 10/09/2010 Hemoglobin A1C 01/03/2024 COVID-19 VACCINE (4 - 2023-2 5 season) 2024 08/03/2021, 12/29/2020, 12/01/2020 Falls Risk Screening 10/07/2024 Tobacco Cessation Counseling and Screening (12+) 12/03/2024 12/03/2023 Influenza Vaccine (Season Ended) 2025 07/08/2023, 06/29/2022, 06/28/2021, Additional history exists Insurance [facility] DUAL COMPLETE MCR ADV [facility] MEDICARE ADVANTAGE Advance Directives For more information, please contact: [phone] * Full Code (Latest Code Status on File) Date Activated Date Inactivated Comments 12/03/2023 8:33 PM 12/05/2023 6:12 PM Care Teams Boat Garnisher Relationship Specialty Start Date End Date Meli Gallardo, MIGUEL ANGEL PCP - General Family Medicine 10/31/22
--- OUTSIDE RECORDS SUMMARY | 2025-04-06 07:31 | XMS_ITS | Encounter Summary ---
Author Organization Healthcare Address [address] [place] [address] Care Team Providers Care Recruitment And Outreach Assistant Name Role Phone Meli Gallardo MIGUEL ANGEL Primary Care Provider [phone] Encounter Details Date Type Department Care Team (Latest Contact Info) Description 03/26/2025 Travel Social History Tobacco Use Types Packs/Day [...] any clubs o r organizations such as sabianism groups, unions, fraternal or athletic groups, or [...] Recorded Patient Health Questionnaire-2 Score 0 02/24/2024 [facility] - Occupational Stress [...] any time in the past 12 m [facility], were you homeless or living in a half-way (including now)? 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 [address] Manuel Palacios MD [address] [place] [address] 08/13/2025 8:00 AM EST Office Visit [facility] [place] [address], [address] [place] [address] Raúl Miller, DO [address] [place] [address] documented as of this encounter Goals Goal Patient Goal Type Associated Problems Recent Progress Patient-Stated? Author Autogenerat ed Goal Care Plan Autogenerated Problem No Radha Duran documented as of this encounter Visit Diagnoses Not on filedocumented in this encounter Additional Health Concerns Active Problems Noted Date Diagnosed Date Autogenerated Problem 03/15/2025 Assessment Noted Time A fall risk assessment has been complete d for the patient 02/19/2025 8:19 AM EDT A Body Mass Index follow-up plan has been documented for the patient 02/19/2025 2:55 PM EDT documented as of this encounter Care Teams Recruitment And Outreach Assistant Relationship Specialty Start Date End Date Meli Gallardo APRN [address] [place], [place] [id number] PCP - General 02/17/21 documented as of this encounter
--- OUTSIDE RECORDS SUMMARY | 2025-04-06 07:31 | XMS_ITS | Clinical Summary ---
Author Organization [facility] Address [address] [place] [address] Care Team Providers Care Back Shoe Worker Name Role Phone Meli Gallardo MIGUEL ANGEL Primary Care Provider [phone] Allergies Active Allergy Reactions Criticality Noted Date Comments Amoxicillin Rash Low 05/31/2021 Azithromycin Rash Low 12/18/2017 Cephalexin Hives,Rash,Shortness of breath High 08/31/2008 Cetirizine Rash Low 12/18/2017 Codeine Anaphylaxis,Hives High 12/04/2009 Can tolerate lortab Conjugated Estrogens Other - please document in the comment field Low 05/31/2021 numbness BLE numbness Erythromycin Hives,Shortness of breath,Rash High 08/31/2008 Estrogens Other - please document in the comment field Low 11/10/2014 numbness Morphine Itching,Hives Medium 06/08/2008 Morphine And Codeine Other - please document in the comment field,Palpitations,Ra sh Low 08/31/2008 Heart races Penicillin G Hives Medium 02/02/2025 Penicillins Hives,Rash,Shortness of breath,Itching High 12/04/2009 Statins Hives,Rash Medium 10/27/2024 Elevated liver enzymes Sulfa Drugs Rash,Shortness of breath High 12/18/2017 Sulfacetamide Shortness of breath,Hives,Rash High 12/04/2009 Medications clopidogrel (Plavix) 75 MG tablet Take 1 tablet by mouth in the morning. 7 Active levothyroxine (Synthroid, Levoxyl) 137 MCG tablet Take 1 tablet by mouth daily before breakfast. 9 Active lisinopril 20 MG tablet Take 1 tablet by mouth in the morning. 9 Active empagliflozin (Jardiance) 25 MG Take 1 tablet by mouth in the morning. Active aspirin 81 MG EC tablet Take 1 tablet by mouth in the morning. Active busPIRone (Buspar) 10 MG tablet Take 1 tablet by mouth in the morning and 1 tablet before bedtime. 1 Active amLODIPine (Norvasc) 10 MG tablet Take 1 tablet by mouth in the morning. Active atorvastatin (Lipitor) 40 MG tablet Take 1 tablet by mouth every evening. 4 Active ergocalciferol 1.25 MG (14546 UT) capsule Take 1 capsule by mouth 1 (one) time per week. 4 Active pen needle, diabetic 31G X 5 MM misc Use as directed with insulin pen. 100 each 11 4 Active insulin NPH-insulin regular (HumuLIN 70/30 KWIKPEN) (70-30) 100 UNIT/ML injection pen Inject 15 Units under the skin 2 (two) times a day before meals. Hold if eating <50% of meal. 15 mL 4 Active fluticasone (Flonase) 50 MCG/ACT nasal spray Administer 2 sprays into each nostril in the morning. 4 Active Semaglutide, 1 MG/DOSE, (Ozempic, 1 MG/DOSE,) 4 MG/3ML solution pen-injector Inject under the skin. Take once a week Active citalopram (CeleXA) 40 MG tablet Take 1 tablet (40 mg) by mouth 1 (one) time each day. 5 Active naloxone (Narcan) 4 mg/0.1 mL nasal spray 1. Give 1 spray in nostril for no/slow breathing or cannot wake after opioid use 2. Call 911 3. Repeat in other nostril if symptoms continue 1 each 5 Active psyllium (Metamucil) 58.6 % powder Take 1 packet by mouth daily. 283 g 5 Active Additional Information Patient not taking.Reported on 02/19/2025 polyethylene glycol (MiraLax) 17 GM/SCOOP powder Take at 6pm - day before procedure. Mix Miralax 238 gram bottle with 64 ounces of Gatorade and refrigerate. Drink 8 ounces every 15 minutes starting at 6pm until completete. SSICOLON 238 g Active Ozempic, 0.25 or 0.5 MG/DOSE, 2 MG/3ML solution pen-injector INJECT 0.25 MG WEEKLY SUBCUTANEOUSLY Active gabapentin (Neurontin) 300 MG capsule Take 1 capsule by mouth daily. Active pantoprazole (Protonix) 40 MG EC tablet Take 1 tablet by mouth daily before breakfast. Do not crush, chew, or split. Active cyanocobalamin 50 MCG tablet Take 1 tablet by mouth daily. Active Active Problems Problem Noted Date Diagnosed Date Bleeding grade II hemorrhoids 12/23/2024 Hemorrhage of anus and rectum 10/03/2024 Residual hemorrhoidal skin tags 10/03/2024 Type 2 diabetes mellitus wit h diabetic peripheral angiopathy without gangrene 10/03/2024 Gastric ulcer, unspecified a s acute or chronic, without hemorrhage or perforation 08/19/2024 Cerebral infarction, unspecified 12/17/2023 Chronic venous hypertension (idiopathic) with inflammation of bilateral lower extremity 11/19/2023 Diverticulitis of large inte guzman without perforation or abscess without bleeding 06/12/2023 Unspecified rotator cuff tea r or rupture of right shoulder, not specified as traumatic 03/13/2023 CAROLINE (obstructive sleep apnea) 04/13/2021 Assessment & Plan (02/05/2025 11:19 AM EDT): - sleep Medicine referral placed - patient would benefit from positive airway pressure treatment of her obstructive sleep apnea Essential hypertension 04/13/2021 Assessment & Plan (02/05/2025 11:19 AM EDT): - Goal blood pressure < 130/80 mmHg - Medication titration to goal as tolerated - Home blood pressure log discussed - I recommended that the patient check their blood pressure multiple times per week for PCP/my review in an effort to optimize medication titration to goal - Orthostatic precautions were discussed in detail Type 2 diabetes mellitus 04/13/2021 Gastroesophageal reflux disease 04/13/2021 TIA (transient ischemic attack) 04/13/2021 Assessment & Plan (02/05/2025 11:20 AM EDT): - patient currently maintained on dual antiplatelet therapy with aspirin 81 mg and Plavix 75 mg daily - would prefer single antiplatelet therapy for secondary prevention only - I have advised the patient to discuss the utility of prolonged dual antiplatelet therapy with her neurologist - from a cardiovascular standpoint, aspirin 81 mg daily is sufficient Antiplatelet or antithrombotic long-term use 05/2021 Mononeuropathy due to type 2 diabetes mellitus 0 06/22/2019 Overview (03/26/2024): Problem Code: E11.41; Problem Code Type: ICD-10; Abscess of abdominal wall 02/17/2019 Overview (03/26/2024): Problem Code: L02.211; Problem Code Type: ICD-10; Atypical chest pain 11/27/2018 Overview (02/22/2023): Cardiac catheterization (08/26/17): Normal coronary arteries. Normal LVEF [facility] ER presentation with chest pain, normal EKG, and normal troponin 1, 11/27/2018 Assessment & Plan (02/05/2025 11:18 AM EDT): - chest pain is noncardiac in nature - given normal catheterization and an echocardiogram recently, no further cardiac investigation is indicated at this time - we will focus our efforts on secondary prevention Peripheral arterial disease 11/27/2018 Nummular eczema 11/19/2018 Overview (03/26/2024): Problem Code: L30.0; Problem Code Type: ICD-10; Vitamin D deficiency 08/06/2018 Overview (03/26/2024): Problem Code: E55.9; Problem Code Type: ICD-10; Acquired atrophy of thyroid 01/31/2018 Overview (03/26/2024): Problem Code: E03.4; Problem Code Type: ICD-10; Generalized anxiety disorder 01/31/2018 Overview (03/26/2024): Problem Code: F41.1; Problem Code Type: ICD-10; Verruca plana 01/31/2018 Overview (03/26/2024): Problem Code: B07.8; Problem Code Type: ICD-10; Verruca vulgaris 01/31/2018 Overview (03/26/2024): Problem Code: B07.9; Problem Code Type: ICD-10; Problem Code: 078.19; Problem Code Type: ICD-9; Diabetic nephropathy associa kareem with type 2 diabetes mellitus 07/13/2017 Overview (03/26/2024): Problem Code: E11.21; Problem Code Type: ICD-10; Pelvic floor dysfunction 05/27/2017 Anxiety 05/08/2017 ETD (eustachian tube dysfunction) 11/10/2014 Vestibular neuronitis 11/10/2014 Reflux esophagitis 11/06/2013 Class 1 obesity Assessment & Plan (02/05/2025 11:21 AM EDT): - dietary and lifestyle modifications discussed Mixed dyslipidemia Assessment & Plan (02/05/2025 11:21 AM EDT): - In very high atherosclerotic cardiovascular disease (ASCVD) risk patients LDL- C goal </= 70 mg/dL - Continue therapy with Atorvastatin (Lipitor) 40 mg by mouth daily - Goal LDL-C < 70 mg/dL - repeat lipid panel today - given the patient's documented historical intolerance to statins and subjective lower extremity weakness we will also screen for liver enzymes and CK Resolved Problems Problem Noted Date Diagnosed Date Resolved Date GIB (gastrointestinal bleeding) 10/01/2024 10/03/2024 Paraesophageal hernia with g astroesophageal reflux 08/19/2024 10/19/2024 Radiculopathy due to lumbar intervertebral disc disorder 07/08/2024 02/01/2025 Nausea 03/30/2024 10/03/2024 Diaphragmatic hernia without obstruction or gangrene 03/30/2024 10/19/2024 Other malaise 01/10/2024 10/03/2024 Pain in leg, unspecified 01/10/2024 Paresthesia of skin 01/03/2024 02/02/20 25 Weakness 01/03/2024 10/03/2024 Occlusion and stenosis of bi lateral carotid arteries 12/31/2023 10/03/2024 Palpitations 12/23/2023 02/01/2025 Other disturbances of skin sensation 12/03/2023 10/03/2024 Atrial premature depolarization 06/24/2023 02/01/2025 Pain in right shoulder 03/13/202310/03 Arthralgia of knee 07/11/2022 Vascular problem 04/13/2021 10/03/2024 Peripheral vascular disease 04/13/2021 02/01/2025 Hypothyroidism 04/13/2021 02/01/2025 Paraesophageal hernia 04/13/20212024 Obesity 04/13/2021 02/01/2025 Kidney stone 04/13/2021 02/01/2025 Mixed incontinence 03/31/2021 Overview (03/31/2021): Added automatically from request for surgery [id number] Urinary urgency 03/31/2021 10/03/2024 Overview (03/31/2021): Added automatically from request for surgery [id number] Urinary frequency 03/31/2021 02/01/2025 Overview (03/31/2021): Added automatically from request for surgery [id number] Viral pneumonia 08/01/2020 10/03/2024 Overview (03/26/2024): Problem Code: J12.89; Problem Code Type: ICD-10; Disorder of upper respiratory system 07/12/2020 10/03/2024 Overview (03/26/2024): Problem Code: J06.9; Problem Code Type: ICD-10; Chemical pneumonitis due to anesthesia 06/26/2019 02/01/2025 Urge incontinence 12/25/2018 02/01/2025 Intercostal pain 08/15/2018 10/03/2024 Overview (03/26/2024): Problem Code: R07.82; Problem Code Type: ICD-10; Disorder of oral soft tissue 06/20/2018 10/03/2024 Overview (03/26/2024): Problem Code: 528.9; Problem Code Type: ICD-9; Focal oral mucinosis 06/20/2018 025 Overview (03/26/2024): Problem Code: K13.79; Problem Code Type: ICD-10; Dizziness and giddiness 04/04/201809/07 Overview (03/26/2024): Problem Code: 780.4; Problem Code Type: ICD-9; Otitis externa of right ear 04/04/2018 10/03/2024 Overview (03/26/2024): Problem Code: H60.331; Problem Code Type: ICD-10; Problem Code: H60.339; Problem Code Type: ICD-10; Acute frontal sinusitis 03/26/201809/07 Overview (03/26/2024): Problem Code: J01.90; Problem Code Type: ICD-10; Problem Code: J01.11; Problem Code Type: ICD-10; Problem Code: J01.10; Problem Code Type: ICD-10; Problem Code: J01.90; Problem Code Type: ICD-10; Hyperlipidemia LDL goal <100 12/18/2017 02/01/2025 Back problem 12/09/2017 10/03/2024 Overview (03/26/2024): Problem Code: 724.8; Problem Code Type: ICD-9; Low back pain 12/09/2017 10/03/2024 Overview (03/26/2024): Problem Code: M54.5; Problem Code Type: ICD-10; Problem Code: M54.5; Problem Code Type: ICD-10; Acute bronchitis 10/21/2017 10/03/2024 Overview (03/26/2024): Problem Code: J20.9; Problem Code Type: ICD-10; Problem Code: J20.8; Problem Code Type: ICD-10; Influenza 10/21/2017 10/03/2024 Overview (03/26/2024): Problem Code: J10.1; Problem Code Type: ICD-10; Wheezing 07/13/2017 10/03/2024 Overview (03/26/2024): Problem Code: R06.2; Problem Code Type: ICD-10; Scar conditions and fibrosis of skin 04/25/2017 02/01/2025 Trigger finger 04/25/2017 02/01/2025 Hand pain 04/23/2017 10/03/2024 Atherosclerosis of coronary artery 03/24/2014 02/01/2025 Diastolic heart failure 03/24/201401/06 Fatty (change of) liver, not elsewhere classified 11/06/2013 02/01/2025 Heartburn 11/06/2013 10/03/2024 LUQ pain 11/06/2013 10/03/2024 Encounters Date Type Department Care Team Description 03/26/2025 Travel 03/25/2025 8:38 PM EDT - 03/26/2025 1:48 AM EDT Emergency [facility] [address] [place] [address] Prabha Vergara MD Cruz, Angelo A, MD Left lower quadrant abdominal pain (Primary Dx) Discharge Disposition: Home or Self Care 03/25/2025 Travel 03/03/2025 Telephone [facility] [address] [place] [address] Annabelle Solorio APRN 02/26/2025 Orders Only [facility] [address] [place] [address] Annabelle Solorio APRN Lumbosacral radiculopathy (Primary Dx); Right leg pain; Degeneration of intervertebral disc of lumbar 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 02/19/2025 9:01 AM EDT - 02/19/2025 11:59 PM EDT Hospital Encounter [facility] [address] [place] [address] Lumbosacral radiculopathy Discharge Disposition: Home or Self Care 02/19/2025 9:01 AM EDT - 02/19/2025 11:59 PM EDT Hospital Encounter [facility] [address] [place] [address] Lumbosacral radiculopathy Discharge Disposition: Home or Self Care 02/19/2025 8:40 AM EDT Consult [facility] [address] [place] [address] Annabelle Solorio, ACTUARIAL INTERN Degeneration of intervertebral disc of lumbar 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 (Primary Dx); Lumbosacral radiculopathy; Right leg pain 02/19/2025 [facility]phone [facility] [address] [place] [address] Annabelle Solorio, ACTUARIAL INTERN 02/19/2025 Travel 02/05/2025 8:45 AM EDT Consult [facility] [address] [facility], [address] [place] [address] Raúl Miller, Atypical chest pain (Primary Dx); Essential hypertension; Mixed dyslipidemia; TIA (transient ischemic attack); CAROLINE (obstructive sleep apnea); Class 1 obesity 02/05/2025 Telephone Card[facility] Imaging [address] [place] [address] Elke Love 02/05/2025 Travel 01/28/2025 Telephone [facility] [address] [facility], [address] [place] [address] Svetlana Levy RN 01/28/2025 Telephone [facility] [address] [facility], [address] [place] [address] Svetlana Levy RN 01/12/2025 7:30 AM EDT - 01/12/2025 9:30 AM EDT Surgery [facility] [address] [place] [address] Danay Orellana MD HEMORRHOIDECTOMY [[id number] (CPT )] 01/12/2025 7:28 AM EDT Anesthesia Event [facility] [address] [place] [address] Jose Martin Alejandro MD Larkin, Clay W, MD 01/12/2025 5:14 AM EDT - 01/12/2025 9:47 AM EDT Hospital Encounter [facility] [address] [place] [address] Danay Orellana MD Bleeding grade II hemorrhoids Discharge Disposition: Home or Self Care 01/12/2025 Travel 01/08/2025 Telephone [facility] [address] [place] [phone] Erica Romero PA from Last 3 Months Immunizations Immunization Administration Dates Next Due Hep A, Adult 04/16/2019,10/11/2018 Influenza, High-dose, Split Virus, Trivalent, Injectable, preservative free 07/07/2024 Influenza, Unspecified 07/09/2022,07/16/2012,03/2010 Influenza, high-dose, quadrivalent 07/08/2023 Influenza, injectable, MDCK, preservative free, quadrivalent 06/29/2022 Influenza, injectable, MDCK, quadrivalent 2018 Influenza, injectable, quadrivalent 07/12/2020,1 Influenza, injectable, quadr ivalent, preservative free 06/29/2022 Influenza, intradermal, quad rivalent, preservative free 07/23/2019 Influenza, recombinant, quad rivalent, injectable, preservative free 06/28/2021 Influenza, seasonal, injectable 07/13/2017 Pneumococcal Polysaccharide PPV23 06/17/2024 Tdap 10/09/2010 Zoster, Recombinant 03/18/2024 Family History Medical History Relation Name Comments Cardiac disorder Brother 1 Hyperlipidemia Brother 2 Cardiac disorder Father Diabetes Father Hyperlipidemia Father Cardiac disorder Maternal Grandfather Hyperlipidemia Maternal Grandfather Stomach cancer Maternal Grandfather Cardiac disorder Maternal Grandmother Cardiac disorder Mother Diabetes Mother Diabetes type II Mother Hyperlipidemia Mother Hypertension Mother Obesity Mother Cardiac disorder Other Cardiac disorder Paternal Grandfather Cardiac disorder Paternal Grandmother Anesthesia problems Neg Hx Malig Hyperthermia Neg Hx Relation Name Status Comments Brother 1 Brother 2 Father Maternal Grandfather Maternal Grandmother Mother Other Paternal Grandfather Paternal Grandmother Social History Tobacco Use Types Packs/Day Years Used Date Smoking Tobacco: Never Passive Smoke Exposure: Never Smokeless Tobacco: Never Tobacco Cessation:Counseling Given: Not Answered Alcohol Use Standard Drinks/Week Comments No 0 [...] often do you attend chur ch or catholic services? Never 10/02/2024 Do you belong to [...] Recorded Patient Health Questionnaire-2 Score 0 02/24/2024 [facility] - Occupational Stress Questionnaire [...] any time in the past [address] [facility], were you homeless or living in a chcf (including now)? No 10/02/2024 CAGE ASSESSMENT Answer [...] drink first t allison in the morning ([employer]) to steady your nerves or to get rid of a hangover? 0 10/01/2024 CAGE Questionnaire Score 0 024 Utilities Answer Date Recorded In the past 12 months has th e [employer], gas, oil, or water [employer] threatened to shut off services in your home? No 10/02/2024 Comments No Sex and Gender Information Value Date Recorded Sex Assigned at Female 10/02/2023 1:40 PM EST Legal Sex Female 7:54 PM EDT Gender Identity Female 10/02/2023 1:40 PM EST Sexual Orientation Straight 02/08/2023 6: 04 AM EDT Last Filed Vital Signs Vital Sign Reading [...] Mass Index 30.23 03/25/2025 8:29 PM EDT Plan of Treatment Upcoming Encounters Date Type Department Care Team (Late st Contact Info) Description 04/19/2025 8:00 AM EDT Office Visit Medical Office Building [facility] [address] [facility], [address] [place] [address] Francisco J Amor MD [address] [phone] 05/18/2025 7:30 AM EDT Appointment [facility] [address] [place] [address] Manuel Palacios MD [address] [place] [address] 08/13/2025 8:00 AM EST Office Visit [facility] [address] [facility], [address] [place] [address] Raúl Miller, [address] [place] [address] Health Maintenance Due Date Last Done Comments [facility]-Bone Density Scan 1960 [facility]-Medicare Annual Wellness (AWV) 1960 [facility]-Infant/Child/Adol SDOH Screenings 1960 Diabetes: Dental Exam 1968 CT Colonography 2003 FIT-DNA 2003 FIT 2003 FOBT 2003 Sigmoidoscopy 2003 [facility]-RSV Vaccine: 60+ Years or (1 - Risk 60-74 years 1-dose series) 2018 [facility]-DTaP,Tdap,and Td Vaccines (2 - Td or Tdap) 10/09/2020 10/09/2010 [facility]-Diabetes: Hemoglobin A1C 02/10/202304/2022, 01/30/2021, 09/19/2020, Additional history exists [facility]-Zoster Vaccines (2 of 2) 05/13/2024 03/18/2024 [id number] Vaccine ( - season) 2024 08/03/2021, 12/29/2020, 12/01/2020 [facility]-Depression Screening 02/23/2025 02/24/2024 [facility]- SDOH Screenings 04/02/2025 [facility]-Adult SDOH Screenings 04/02/2025 10/02/2024 [facility]-Pneumococcal Vaccine: 50+ Years (2 of 2 - PCV) 06/17/2025 06/17/2024 Colonoscopy 10/02/2034 10/02/2024, 06/07, 01/13/2018 [facility]-Colorectal Cancer Screening 10/02/2034 [facility]-Hepatitis A Vaccines Aged Out 04/16/2019, 02/2019 No longer eligible based on patient's age to complete this topic [facility]-Influenza Vaccine Completed 07/07/2024 , 07/08/2023, 07/09/2022, Additional history exists [facility]-Hepatitis C Screening Completed 2023, 02/03/2021, 07/18/2020, Additional history exists [facility]-Obesity Intervention Completed 025, 02/05/2025, 12/23/2024, Additional history exists HPV Vaccines Aged Out No longer eligi ble based on patient's age to complete this topic [facility]-HIB Vaccines Aged Out No longer e ligible based on patient's age to complete this topic [facility]-IPV Vaccines Aged Out No longer e ligible based on patient's age to complete this topic [facility]-Rotavirus Vaccines Aged Out No lo nger eligible based on patient's age to complete this topic Goals Goal Patient Goal Type Associated Problems Recent Progress Patient-Stated? Author Autogenerat ed Goal Care Plan Autogenerated Problem No Radha [employer] Implanted Type Area Alley Tender Device Identifier Shelf Expiration Date Model / Serial / Lot Neurostimulator - [id number] - [id number] Implanted:Qty: 1 on 04/18/2021 by Kiersten Welch MD at [facility] Stem Medtronic/DLP Cardio-Pulmonar [id number] 06/03/2022 [id number] / [id number] / [id number] Bladder Stimulator Back Mesh Phasix St [id number] - [id number] Implanted:Qty: 1 on 09/18/2024 by Francisco J Amor MD at [facility] N/A: Abdomen [id number] 01/01/2027 [id number] / / [id number] Procedures Procedure Name Priority Date/Time Associated Diagnosis [...] AUTO DIFFERENTIAL STAT 03/25/2025 9:03 PM EDT URINE HEATON PANEL STAT 03/25/2025 9:01 PM EDT URINALYSIS WITH REFLEX MICROSCOPIC STAT 03/25/2025 9:01 PM EDT URINALYSIS WITH REFLEX MICROSCOPIC AND CULTURE STAT 03/25/2025 9:01 PM EDT XR SCOLIOSIS ENTIRE SPINE 2 OR 3 VIEWS Routine 02/19/2025 9:17 AM EDT Lumbosacral radiculopathy XR LUMBAR SPINE 2 OR 3 VIEWS Routine 02/19/2025 9:17 AM EDT Lumbosacral radiculopathy LIPID PROFILE, PLASMA Routine 02/05/2025 9:39 AM EDT Mixed dyslipidemia CREATINE KINASE, TOTAL, PLASMA Routine 02/05/2025 9:39 AM EDT Mixed dyslipidemia COMPREHENSIVE METABOLIC PANEL, PLASMA Routine 02/05/2025 9:39 AM EDT Mixed dyslipidemia ECG ADULT Routine 02/05/2025 9:03 AM EDT Atypical chest pain SURGICAL PATHOLOGY EXAM Routine 01/13/20 8:12 AM EDT Bleeding grade II hemorrhoids PB ANESTHESIA PLACEHOLDER Routine 01/12/2025 7:38 AM EDT [place] AN ELECTIVE ENDOTRACHEAL AIRWAY Routine 01/12/2025 7:38 AM EDT WV HEMORRHOIDECTOMY,INT/EX T, 2+ COLUMNS/GROUPS 01/12/2025 7:17 AM EDT Bleeding grade II hemorrhoids POCT GLUCOSE METER UNSOLICITED RESULTS Routine 01/12/2025 5:40 AM EDT COLONOSCOPY Routine 10/02/2024 4:31 PM EST Gastrointestinal hemorrhage associated with anorectal source HEPATITIS C ANTIBODY - ED W/REFLEX TO HCV QUANT PCR STAT 10/01/2024 1:00 PM EST POCT GLYCOSYLATED HEMOGLOBIN (HGB A1C) Routine 01/30/2021 4:04 PM EDT from Last 3 Months or Most Recently Relevant to Health Maintenance Results * CT Abdomen Pelvis w IV [...] Mundo Adam MD on 03/26/2025 1:00 AM Prabha Vergara MD IMG CT PROCEDURES Final Resu lt * Lipase (03/25/2025 10:29 PM EDT) Lipase, Plasma 47 19 - 63 U/L 03/25/2025 10:46 PM EDT [facility] Blood Venous blood specimen / Unknown Venipuncture / Unknown 03/25/2025 10:29 PM EDT 03/25/2025 10:31 PM EDT Prabha Vergara MD LAB BLOOD ORDERABLES Final R esult [facility] [address] [place] [address] * Test Qualitative Plasma (03/25/2025 9:22 PM EDT) Test Negative Negative 03/25/2025 9:22 PM EDT [facility] Blood Venous blood specimen / Unknown 03/25/2025 9:01 PM EDT Narrative [facility] - 03/25/2025 9:22 PM EDT Reference Range: Males and non- females: Negative. us Prabha Vergara MD LAB BLOOD ORDERABLES Final R esult [facility] [address] [place] [address] * (ABNORMAL) CMP (03/25/2025 9:22 PM EDT) Only the most recent of2 resultswithin the time period is included. Glucose, Plasma 182(H) 74 - 99 mg/dL 03/25/2025 9:22 PM EDT [facility] BUN, Plasma 15 8 - 23 mg/dL 03/25/2025 9:22 PM EDT [facility] Creatinine, Plasma 0.76 0.60 - 1.10 mg/dL 03/25/2025 9:22 PM EDT [facility] BUN/Creatinine Ratio 20 03/25/2025 9:22 PM EDT [facility] Sodium, Plasma 141 136 - 145 mmol/L 03/25/2025 9:22 PM EDT [facility] Potassium, Plasma 4.7 3.6 - 4.9 mmol/L 03/25/2025 9:22 PM EDT [facility] Comment:Hemolyzed, result ma y be falsely increased. Chloride, Plasma 103 97 - 107 mmol/L 03/25/2025 9:22 PM EDT [facility] CO2, Plasma 22 22 - 29 mmol/L 03/25/2025 9:22 PM EDT [facility] Anion Gap 16 6 - 16 mmol/L 03/25/2025 9:22 PM EDT [facility] Total Calcium, Plasma 9.2 8.9 - 10.2 mg/dL 03/25/2025 9:22 PM EDT [facility] Total Protein 7.5 6.3 - 7.9 g/dL 03/25/2025 9:22 PM EDT [facility] Albumin, Plasma 4.8 3.5 - 5.2 g/dL 03/25/2025 9:22 PM EDT [facility] AST, Plasma 29 10 - 35 U/L 03/25/2025 9:22 PM EDT [facility] Comment:Hemolyzed, result ma y be falsely increased. ALT, Plasma 22 10 - 35 U/L 03/25/2025 9:22 PM EDT [facility] Alkaline Phosphatase, Plasma 123 46 - 142 U/L 03/25/2025 9:22 PM EDT [facility] Total Bilirubin, Plasma 0.6 0.2 - 1.1 mg/dL 03/25/2025 9:22 PM EDT [facility] eGFRcr 86.5 mL/min/1.7 3m*2 03/25/2025 9:22 PM EDT [facility] Comment:Reported eGFRcr in m L/min/1.73m2 is based the CKD-EPI 2020 equation that does not use a race coefficient. Blood Venous blood specimen / Unknown 03/25/2025 9:01 PM EDT us Prabha Vergara MD LAB BLOOD ORDERABLES Final R esult Performing Organization Address City/[facility]/ZIP Co de Phone Number [facility] [address] [place] [address] * ED HIV 1/2 Antibody/Antigen Screen w/Reflex to HIV 1/2 Differentiation (03/25/2025 9:11 PM EDT) HIV 1 & 2 Antibody/Antigen Screen Non Reactive Non Reactive 03/25/2025 10:16 PM EDT [facility] Comment:Screening for HIV 1 & 2 antibodies, and P24 antigen is NONREACTIVE. No confirmatory testing is required. Blood Venous blood specimen / Unknown Venipuncture / Unknown 03/25/2025 9:11 PM EDT 03/25/2025 9:35 PM EDT us Prabha Vergara MD LAB BLOOD ORDERABLES Final R esult Performing Organization Address City/[facility]/ZIP Co de Phone Number [facility] [address] [place] [address] * Lactate, venous (03/25/2025 9:05 PM EDT) Lactate, Venous, Whole Blood 1.9 0.5 - 2.2 mmol/L LAB HEMATOLOGY METHOD 03/25/2025 9:05 PM EDT [facility] Blood Venous blood specimen / Unknown 03/25/2025 9:03 PM EDT us Prabha Vergara MD LAB BLOOD ORDERABLES Final R esult [facility] [address] [place] [address] * (ABNORMAL) CBC and Differential (03/25/2025 9:03 PM EDT) Pathologist [facility] WBC Count 7.39 3.70 - 10.30 10*3/uL LAB HEMATOLOGY METHOD 03/25/2025 9:03 PM EDT [facility] RBC Count 5.22(H) 3.90 - 5.20 10*6/uL LAB HEMATOLOGY METHOD 03/25/2025 9:03 PM EDT [facility] HGB 15.7 11.2 - 15.7 g/dL LAB HEMATOLOGY METHOD 03/25/2025 9:03 PM EDT [facility] HCT 46.1(H) 34.0 - 45.0 % LAB HEMATOLOGY METHOD 03/25/2025 9:03 PM EDT [facility] Platelet Count 203 155 - 369 10*3/uL LAB HEMATOLOGY METHOD 03/25/2025 9:03 PM EDT [facility] MCV 88 79 - 98 fL LAB HEMATOLOGY METHOD 03/25/2025 9:03 PM EDT [facility] MCH 30.1 26.0 - 32.0 pg LAB HEMATOLOGY METHOD 03/25/2025 9:03 PM EDT [facility] MCHC 34.1 30.7 - 35.5 g/dL LAB HEMATOLOGY METHOD 03/25/2025 9:03 PM EDT [facility] RDW 13.4 11.5 - 14.5 % LAB HEMATOLOGY METHOD 03/25/2025 9:03 PM EDT [facility] MPV 10.4 8.8 - 12.5 fL LAB HEMATOLOGY METHOD 03/25/2025 9:03 PM EDT [facility] nRBC 0.0 <=0.0 per 100 WBCs LAB HEMATOLOGY METHOD 03/25/2025 9:03 PM EDT [facility] Differential Type Automated LAB HEMATOLOGY METHOD 03/25/2025 9:03 PM EDT [facility] Neutrophils % 61 % LAB HEMATOLOGY METHOD 03/25/2025 9:03 PM EDT [facility] Lymphocytes % 27 % LAB HEMATOLOGY METHOD 03/25/2025 9:03 PM EDT [facility] Monocytes % 9 % LAB HEMATOLOGY METHOD 03/25/2025 9:03 PM EDT [facility] Eosinophils % 2 % LAB HEMATOLOGY METHOD 03/25/2025 9:03 PM EDT [facility] Basophils % 1 % LAB HEMATOLOGY METHOD 03/25/2025 9:03 PM EDT [facility] Immature Granulocytes % 0 % LAB HEMATOLOGY METHOD 03/25/2025 9:03 PM EDT [facility] Neutrophils Absolute 4.54 1.60 - 6.10 10*3/uL LAB HEMATOLOGY METHOD 03/25/2025 9:03 PM EDT [facility] Lymphocytes Absolute 1.97 1.20 - 3.90 10*3/uL LAB HEMATOLOGY METHOD 03/25/2025 9:03 PM EDT [facility] Monocytes Absolute 0.64 0.30 - 0.90 10*3/uL LAB HEMATOLOGY METHOD 03/25/2025 9:03 PM EDT [facility] Eosinophils Absolute 0.16 0.00 - 0.50 10*3/uL LAB HEMATOLOGY METHOD 03/25/2025 9:03 PM EDT [facility] Basophils Absolute 0.05 0.00 - 0.10 10*3/uL LAB HEMATOLOGY METHOD 03/25/2025 9:03 PM EDT [facility] Immature Granulocytes Absolute 0.03 0.00 - 0.06 10*3/uL LAB HEMATOLOGY METHOD 03/25/2025 9:03 PM EDT [facility] Blood Venous blood specimen / Unknown 03/25/2025 9:01 PM EDT [facility] - 03/25/2025 9:03 PM EDT Therapeutic decision making should be based on absolute values, rather than percentages. us Prabha Vergara MD LAB BLOOD ORDERABLES Final R esult Performing Organization Address City/[facility]/ZIP Co de Phone Number [facility] [address] [place] [address] * Urine Heaton Panel (03/25/2025 9:01 PM EDT) Extra Reflex urine culture not indicated 03/26/2025 6:01 AM EDT [facility] Comment: Previously prelim verified as [...] PM EDT 03/25/2025 9:10 PM EDT us Prabha Vergara MD LAB URINE ORDERABLES Final R esult Performing Organization Address City/[facility]/ZIP Co de Phone Number [facility] [address] [place] [address] * (ABNORMAL) Urinalysis with reflex microscopic (Culture NOT Included) (03/25/2025 9:01 PM EDT) Color, Urine Yellow LAB URINALYSIS - AUTOMATED METHOD 03/25/2025 9:27 PM EDT [facility] Clarity, Urine Clear LAB URINALYSIS - AUTOMATED METHOD 03/25/2025 9:27 PM EDT [facility] Spec Blanket, Urine >1.030(H) 1.005 - 1.030 LAB URINALYSIS - AUTOMATED METHOD 03/25/2025 9:27 PM EDT [facility] pH, Urine 5.5 5.0 - 8.0 LAB URINALYSIS - AUTOMATED METHOD 03/25/2025 9:27 PM EDT [facility] Protein, Urine Negative Negative mg/dL LAB URINALYSIS - AUTOMATED METHOD 03/25/2025 9:27 PM EDT [facility] Glucose, Urine >=1000(A) Negative mg/dL LAB URINALYSIS - AUTOMATED METHOD 03/25/2025 9:27 PM EDT [facility] Ketones, Urine Trace(A) Negative mg/dL LAB URINALYSIS - AUTOMATED METHOD 03/25/2025 9:27 PM EDT [facility] Blood, Urine Negative Negative LAB URINALYSIS - AUTOMATED METHOD 03/25/2025 9:27 PM EDT [facility] Bilirubin, Urine Negative Negative LAB URINALYSIS - AUTOMATED METHOD 03/25/2025 9:27 PM EDT [facility] Urobilinogen, Urine 0.2 0.2 to 1.0 mg/dL LAB URINALYSIS - AUTOMATED METHOD 03/25/2025 9:27 PM EDT [facility] Leukocytes, Urine Negative Negative LAB URINALYSIS - AUTOMATED METHOD 03/25/2025 9:27 PM EDT [facility] Nitrite, Urine Negative Negative LAB URINALYSIS - AUTOMATED METHOD 03/25/2025 9:27 PM EDT [facility] Urine Urine specimen obtained by clean catch procedure / Unknown Non-blood Collection / Unknown 03/25/2025 9:01 PM EDT 03/25/2025 9:10 PM EDT us Prabha Vergara MD LAB URINE ORDERABLES Final R esult [facility] [address] [place] [address] * XR Scoliosis Entire Spine 2 or [...] on 02/19/2025 10:19 AM us Annabelle Solorio ACTUARIAL INTERN IMG XR PROCEDURES Final Resu lt * [...] MD on 02/19/2025 10:19 AM Annabelle Solorio ACTUARIAL INTERN IMG XR PROCEDURES Final Resu lt * Creatine Kinase (CK), Total (02/05/2025 9:39 AM EDT) Creatine Kinase, Plasma 84 37 - 168 U/L 02/05/2025 11:57 AM EDT [facility] Blood Venous blood specimen / Unknown Venipuncture / Unknown 02/05/2025 9:39 AM EDT 02/05/2025 9:39 AM EDT Raúl Miller DO LAB BLOOD ORDERABLES Final Result Performing Organization Address City/State/[facility] Co de Phone Number [facility] [address] [place] [address] * Lipid panel (02/05/2025 9:39 AM EDT) Cholesterol, Plasma 165 <200 mg/dL 02/05/2025 11:57 AM EDT [facility] Comment: Cholesterol Reference Range (age >17 years): Desirable <200 mg/dL Borderline 200 to 239 mg/dL Undesirable >239 mg/dL HDL 55 >=50 mg/dL 02/05/2025 11:57 AM EDT [facility] Comment: HDL Cholesterol Reference Ranges (age >17 years): Female, acceptable > or = 50 mg/dL Male, acceptable > or = 40 mg/dL Triglycerides, Plasma 116 <150 mg/dL 02/05/2025 11:57 AM EDT [facility] Comment: Triglyceride Reference Range (age >17 years): Desirable: <150 mg/dL Borderline high: 150 to 199 mg/dL High: 200 to 499 mg/dL Very high: >499 mg/dL Increased risk of pancreatitis: >1000 mg/dL Cholesterol/HDL Ratio 3 02/05/2025 11:57 AM EDT [facility] LDL, Calculated 89 <100 mg/dL [...] 12 hours? Unknown 02/05/2025 11:57 AM EDT [facility] Blood Venous blood specimen / Unknown Venipuncture / Unknown 02/05/2025 9:39 AM EDT 02/05/2025 9:39 AM EDT Raúl L Angela DO LAB BLOOD ORDERABLES Final Result Performing Organization Address City/[facility] Co de Phone Number [facility] [address] [place] [address] * ECG Adult (02/05/2025 9:03 AM EDT) EKG DIAGNOSIS CLASS Normal MUSE ECG Ventricular Rate 68 BPM MUSE ECG Atrial Rate 68 BPM MUSE ECG WV Interval 136 ms MUSE ECG QRSD Interval 92 ms MUSE ECG QT Interval 452 ms MUSE ECG QTC Interval 480 ms MUSE ECG P [place] 39 degrees MUSE ECG R [place] 3 degrees MUSE ECG T Wave [place] 12 degrees MUSE ECG Diagnosis Normal sinus rhythm MUSE ECG Diagnosis MUSE ECG Diagnosis MUSE ECG Diagnosis Confirmed by Adelfo Braga ([id number]) on 02/05/2025 10:19:23 AM MUSE ECG 02/05/2025 9:03 AM EDT 02/05/2025 10:19 AM EDT us Raúl L Angela DO ECG ORDERABLES Final Resul t MUSE ECG * Surgical Pathology Exam (01/12/2025 8:12 AM EDT) Case Report Surgical Pathology Case: [id number] Authorizing Provider: Danay Orellana MD Collected: 01/12/2025 0812 Ordering Location: [facility] Received: 01/12/2025 0903 Pathologist: Chapincito Pritchett MD Specimens: A) - Other (specify site), Right Posterior Hemorrhoid B) - Other (specify site), Left Lateral Hemorrhoid 01/14/2025 10:49 AM EDT [facility] Final Diagnosis A. RIGHT POSTERIOR HEMORRHOID, EXCISION: - DILATED, CONGESTED SUBMUCOSAL VEINS WITH OVERLYING BENIGN SQUAMOUS EPITHELIUM. B. LEFT LATERAL HEMORRHOID, EXCISION: - DILATED, CONGESTED SUBMUCOSAL VEINS WITH FOCAL THROMBOSIS. 01/14/2025 10:49 AM EDT [facility] at 1049 EDT Clinical Information Bleeding grade II hemorrhoids [K64.1] 01/14/2025 10:49 AM EDT [facility] Gross Description A. RIGHT POSTERIOR HEMORRHOID Received fresh and subsequently placed in formalin labeled right posterior hemorrhoid is 1 hemorrhoid measuring 2.8 x up to 2.8 x up to 0.6 cm. The mucosa is red-lujan and wrinkly. Sectioning reveals a pink-lujan vascular surface with red-brown hemorrhagic material. The resection margin is inked blue and sales representative uniforms sections submitted in cassette A1. Cold Time: 51m Miranda Ramachandran B. LEFT LATERAL HEMORRHOID Received fresh and subsequently placed in formalin labeled left lateral hemorrhoid is 1 hemorrhoid measuring 2.3 x up to 1.3 x up to 0.4 cm. The mucosa is pink-lujan and wrinkly. Sectioning reveals a pink-lujan vascular surface with red-brown hemorrhagic material. The resection margin is inked blue and sales representative uniforms sections are submitted in cassette B1. Cold Time: 36m Miranda Ramachandran 01/14/2025 10:49 AM EDT [facility] Note: A resident was involved in the service. I attest I examined the relevant preparations for the specimens and confirmed the diagnosis or interpretation. 01/14/2025 10:49 AM EDT [facility] Tissue Topography unknown / Unknown 01/12/2025 8:12 AM EDT 01/12/2025 9:03 AM EDT Comment:Pre-op diagnosis: Bleeding grade II hemorrhoids [K64.1] Tissue specimen (specimen) Topography unknown / Unknown 01/12/2025 8:27 AM EDT 01/12/2025 9:03 AM EDT Comment:Pre-op diagnosis: Bleeding grade II hemorrhoids [K64.1] Danay Rosas MD LAB PATHOLOGY ORDERABLES Final Result [facility] [address] [place] [id number] * W[place] AN ELECTIVE ENDOTRACHEAL AIRWAY, PB ANESTHESIA PLACEHOLDER (01/12/2025 7:38 AM EDT) Narrative Rishi Arzola CRNA - 01/12/2025 7:38 AM EDT Rishi Arzola CRNA 01/12/2025 8:19 AM Airway Date/Time: 01/12/2025 7:38 AM Reason: elective Airway not difficult General Information and Staff Patient location during procedure: OR ENGINEERING LECTURER: Rishi Arzola CRNA Performed: ENGINEERING LECTURER Patient Condition Indications for airway management: anesthesia Patient position: sniffing Final Airway Details Final airway type: endotracheal airway Successful airway: ETT Cuffed: yes Successful intubation technique: direct laryngoscopy Adjuncts used in placement: intubating stylet Endotracheal tube insertion site: oral Blade: Noelle Blade size: #3 ETT size (mm): 7.0 Cormack-Lehane Classification: grade IIb - view of arytenoids or posterior of glottis only Placement verified by: chest auscultation and capnometry Measured from: lips ETT to lips (cm): 21 Additional Comments Atraumatic. No change to dentition. us Jose Martin Alejandro MD ANESTHESIA ORDERABLES Final Result * (ABNORMAL) POCT glucose meter (01/12/2025 5:40 AM EDT) POCT Glucose 195(H) 74 - 99 mg/dL 01/12/2025 6:00 AM EDT [facility] Comment:Accuracy of a glucos e result obtained from a capillary whole blood specimen relies upon adequate, non-compromised capillary blood flow. If the capillary glucose result is not consistent with the patient's clinical signs and symptoms, glucose testing should be repeated with either an arterial or venous sample on the glucometer or sent to the main labortory for testing. Comment 01/12/2025 6:00 AM EDT [facility] Associate Project Manager ID Andreina Carson 01/12/2025 6:00 AM EDT [facility] Device ID [id number] 01/12/2025 6:00 AM EDT [facility] Specimen Type POC Capillary 01/12/2025 6:00 AM EDT [facility] Blood Capillary blood specimen / Unknown 01/12/2025 5:40 AM EDT 01/12/2025 6:00 AM EDT us Danay Rosas MD LAB POINT OF CARE TEST DOCKED DEVICE UNSOLICITED RESULTS Final Result [facility] [address] [place] [id number] * Colonoscopy (10/02/2024 4:31 PM EST) Anatomical Region Laterality Modality Endoscopy Narrative 10/02/2024 4:49 PM EST Table formatting from the original result was not included. Impression: Scattered diverticulosis of moderate severity causing mild luminal narrowing in the transverse colon, descending colon, sigmoid colon and rectosigmoid Large, prolapsing (grade 4) hemorrhoids Few small scattered polyps seen in colon, not removed as indication of procedure was for bleeding and bowel prep on right side of colon was inadequate for surveillance. No bleeding or stigmata of bleeding on exam Recommendations Other Suspect hemorrhoids were the origin of the hematochezia as they were quite enlarged, prolapsed, and one appeared recently thrombosed. However, possibly also could have been a small diverticular bleed given left sided diverticular burden. Repeat colonoscopy for CRC surveillance at previously determined screening interval Resume previous diet and medications today Findings and recommendations discussed with Ms. Olvera and primary service post-procedure Indication Hematochezia Medications See anesthesia record for anesthesia administered medications. Staff Staff Role Tr Falcon, Kole Brunson CRNA, Anesthesiologist Beth Patel Endo Tilting Head Band Sawyer Malgorzata Langston, DO Proceduralist Elvia Martinez, RN Endo Nurse Preprocedure A history and physical has been performed, and patient medication allergies have been reviewed. The patient's tolerance of previous anesthesia has been reviewed. The risks and benefits of the procedure and the sedation options and risks were discussed with the patient. All questions were answered and informed consent obtained. Details of the Procedure The patient underwent monitored anesthesia care, which was administered by an anesthesia professional. The patient's blood pressure, heart rate, level of consciousness, respirations and oxygen were monitored throughout the procedure. A digital rectal exam was performed. A perianal exam was performed. The scope was introduced through the anus and advanced to the cecum. Retroflexion was performed in the rectum. The quality of bowel preparation was evaluated using the [place] Bowel Preparation Scale with scores of: right colon = 1, transverse colon = 2, left colon = 2. The total BBPS score was 5. Bowel prep was not adequate. The patient experienced no blood loss. The procedure was not difficult. The patient tolerated the procedure well. There were no apparent adverse events. Attestation I was present for the entire procedure Events Procedure Events Event Event Time Specimens No specimens were documented in this log. Findings Multiple small, medium and large, scattered diverticula of moderate severity causing mild luminal narrowing (traversable) in the transverse colon, descending colon, sigmoid colon and rectosigmoid; no bleeding was observed. Diverticular load was most dense in the left colon Internal large, prolapsing (grade 4) hemorrhoids; no bleeding was observed Few small scattered polyps seen in colon, not removed as indication of procedure was for bleeding and bowel prep on right side of colon was inadequate for surveillance. Duncan Lyman MD GI PROCEDURE ORDERABLES Final Re sult * Hepatitis C Antibody - ED W/Reflex to HCV Quant PCR (10/01/2024 1:00 PM EST) Hepatitis C Antibody Negative Negative 10/01/2024 1:36 PM EST [facility] Blood Venous blood specimen / Unknown Venipuncture / Unknown 10/01/2024 1:00 PM EST 10/01/2024 1:04 PM EST Denise Keating PA LAB BLOOD ORDERABLES Final Resu lt [facility] [address] [place] [address] * MAHNAZ Hemoglobin A1C (01/30/2021 4:04 PM EDT) POCT Hemoglobin A1C 7.7 [facility] [place] 01/30/2021 4:04 PM EDT Narrative [facility] [place] - 01/30/2021 4:04 PM EDT Resulting Agency - [facility] [[facility] [place]] us Historical Provider MD POINT OF CARE TEST ENTER/ EDIT ORDERABLES Final Result [facility] [place] [address] [place] [address], from Last 3 Months or Most Recently Relevant to Health Maintenance Additional Health Concerns Active Problems Noted Date Diagnosed Date Autogenerated Problem 03/15/[address] [place] [place] [address] MEDICAID [facility] MEDICARE Advance Directives * Full Code (Latest Code Status on File) Date Activated Date Inactivated Comments 10/01/2024 4:55 PM 10/03/2024 3:54 PM Question Answer Comments Patient has decision-making capacity? Yes * Full Code Date Activated Date Inactivated Comments 09/18/2024 12:26 PM 09/20/2024 4:54 PM Question Answer Comments Patient has decision-making capacity? Yes Care Teams Back Shoe Worker Relationship Specialty Start Date End Date Meli Gallardo APRN [address] [place] [address] PCP - General 02/17/21
--- OUTSIDE RECORDS SUMMARY | 2025-04-06 07:31 | XMS_ITS | Encounter Summary ---
Author Organization Healthcare Address [address] [place] [address] Care Team Providers Care Director Trading Name Role Phone Meli Gallardo MIGUEL ANGEL Primary Care Provider [phone] Encounter Details Date Type Department Care Team (Late st Contact Info) Description 02/05/2025 Telephone Cardiac Imaging [address] [place] [address] Elke Love Social History Tobacco Use Types Packs/Day Years [...] week 10/02/2024 How often do you attend [facility] or taoist services? Never 10/02/2024 Do you belong to [...] Recorded Patient Health Questionnaire-2 Score 0 02/24/2024 [facility] - Occupational Stress Questionnaire Answer [...] any time in the past 12 m [facility], were you homeless or living in a halfway (including now)? No 10/02/2024 CAGE ASSESSMENT Answer [...] drink first t allison in the morning (EYE-PARTS DEPARTMENT MANAGER) to steady your nerves or to get rid of a hangover? 0 10/01/2024 CAGE Questionnaire Score 0 024 Utilities Answer Date Recorded In the past 12 months has th e [employer], gas, oil, or water company threatened to [...] encounter Miscellaneous Notes * Telephone Encounter - Elke Love - 02/05/2025 11:08 AM EDT Bree contacted device clinic today to setup remote monitoring for patient. We request transfer andcalled Dr. Hermelindo Lacey MD leaving with notification of Gregg online request. Svetlana Browning:[phone] called back releasing. So we called patient introducing our team and assisted with ABTinitial device report. Request transfer: 02-05-2025 [facility]: [phone] April Olvera : [address] [place] [address] documented in this encounter Plan of Treatment Upcoming Encounters Date Type Department Care Team (Late st Contact Info) Description 04/19/2025 8:00 AM EDT Office Visit Medical Office Building Surgical Specialties [address] [facility], [address] [place] [phone] Francisco J Amor MD [address] [facility] [address] [place] [address] 05/18/2025 7:30 AM EDT Appointment [facility] [address] [place] [address] Manuel Palacios MD [address] [place] [phone] 08/13/2025 8:00 AM EST Office Visit [facility] [place] [address] [facility], [address] [place] [address] Raúl Miller, [address] [place] [address] documented as of this encounter Visit Diagnoses Not on filedocumented in this encounter Additional Health Concerns Assessment Noted Time A fall risk assessment has been complete d for the patient 10/19/2024 2:10 PM EST A Body Mass Index follow-up plan has been documented for the patient 02/05/2025 9:45 AM EDT documented as of this encounter Care Teams Director Trading Relationship Specialty Start Date End Date Meli Gallardo APRN [address] [place] [address] PCP - General 02/17/21 documented as of this encounter
--- OUTSIDE RECORDS SUMMARY | 2025-04-06 07:31 | XMS_ITS | Encounter Summary ---
Author Organization [employer] [facility] ([place], [place], [place], [place]) Address [address] [place] [address] Care Team Providers Care Layout Operator Name Role Phone Meli Gallardo APRN Primary Care Provider [phone] Encounter Details Date Type Department Care Team (Late st Contact Info) Description 01/13/2024 Telephone [facility] Neurology - [email or web address] [place] [address] Mely Gaviria APRN [email or web address] [place] [address] Social History Tobacco Use Types Packs/Day Years [...] Do you speak a language other than Burmese at ho nm? No 12/04/2023 Do you want help with [...] on file Sexual Orientation Not on file documented as of this encounter Plan of Treatment Not on file documented as of this encounter Visit Diagnoses Not on filedocumented in this encounter Care Teams Layout Operator Relationship Specialty Start Date End Date Meli Gallardo, MIGUEL ANGEL PCP - General Family Medicine 10/31/22 documented as of this encounter
--- OUTSIDE RECORDS SUMMARY | 2025-04-06 07:31 | XMS_ITS | Encounter Summary ---
Author Organization Healthcare Address [address] [place] [address] Care Team Providers Care Transport Aide Name Role Phone Meli Gallardo MIGUEL ANGEL Primary Care Provider [phone] Encounter Details Date Type Department Care Team (Latest Contact Info) Description 02/05/2025 Travel Social History Tobacco Use Types Packs/Day [...] How often do you attend chur or restorationist services? Never 10/02/2024 Do you belong to any clubs o r organizations such as restorationist groups, unions, fraternal or athletic groups, or [...] Recorded Patient Health Questionnaire-2 Score 0 02/24/2024 [facility] of Occupat ional Health - Occupational [...] any time in the past 12 m [facility], were you homeless or living in a retirement (including now)? No 10/02/2024 CAGE ASSESSMENT Answer [...] drink first t allison in the morning (EYE-QUILLER HAND) to steady your nerves or to get [...] Upcoming Encounters Date Type Department Care Team ([facility] st Contact Info) Description 04/19/2025 8:00 AM EDT Office Visit Medical Office Building Surgical Specialties [address] [facility] [address] [facility], [address] [place] [address] Francisco J Amor MD [address] [place] [address] 05/18/2025 7:30 AM EDT Appointment [facility] [address] [place] [address] Manuel Palacios MD [address] [place] [address] 08/13/2025 8:00 AM EST Office Visit [facility] [place] [address] [facility], [address] [place] [address] Raúl Miller, DO [address] [place] [address] documented as of this encounter Visit Diagnoses Not on filedocumented in this encounter Additional Health Concerns Assessment Noted Time A fall risk assessment has been complete d for the patient 10/19/2024 2:10 PM EST A Body Mass Index follow-up plan has been documented for the patient 02/05/2025 9:45 AM EDT documented as of this encounter Care Teams Transport Aide Relationship Specialty Start Date End Date Meli Gallardo APRN [address] [place] [address] PCP - General 02/17/21 documented as of this encounter
--- OUTSIDE RECORDS SUMMARY | 2025-04-06 07:31 | XMS_ITS | Encounter Summary ---
Author Organization [facility] Address [address] [place] [address] Care Team Providers Care Body Line Finisher Name Role Phone GallardoMeli barnett MIGUEL ANGEL Primary Care Provider [phone] Reason for Referral * Imaging (Routine) - Authorized Specialty Diagnoses / Procedures Referred By Estrellita alves Referred To Contact Diagnoses Lumbosacral radiculopathy Right leg pain Degeneration of intervertebral disc of lumbar 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 Procedures CT Lumbar Spine Myelogram Annabelle Solorio APRN [address] [address] Phone: tel: fax: [facility] () [address] [place] [address] Phone: tel: fax: Referral ID Status Reason Start Date Expiration Date V isits Requested Visits Authorized [id number] Authorized 02/26/2025 08/28/2026 1 1 * Imaging (Routine) - Authorized Specialty Diagnoses / Procedures Referred By Estrellita alves Referred To Contact Radiology Diagnoses Lumbosacral radiculopathy Right leg pain Degeneration of intervertebral disc of lumbar 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 Procedures FL Guided Lumbar Puncture for Myelogram Annabelle Solorio APRN [address] [address] Phone: tel: fax: Referral ID Status Reason Start Date Expiration Date Visits Requested Visits Authorized [id number] Authorized Perform Procedure 02/26/2025 08/28/2026 1 1 Encounter Details Date Type Department Care Team (Late st Contact Info) Description 02/26/2025 Orders Only [place] [facility] [address], [address] [place] [address] Annabelle Solorio APRN [address] [place] [address] Lumbosacral radiculopathy (Primary Dx); Right leg pain; Degeneration of intervertebral disc of lumbar 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 Social History Tobacco Use Types Packs/Day [...] week 10/02/2024 How often do you attend [facility] or baptism services? Never 10/02/2024 Do you belong to any clubs o r organizations such as hinduism groups, unions, fraternal or athletic groups, or [...] Recorded Patient Health Questionnaire-2 Score 0 02/24/2024 [facility] [place] of Occupat ional Health - Occupational Stress [...] any time in the past 12 m onths, were you homeless or living in a alf (including now)? No 10/02/2024 CAGE ASSESSMENT Answer [...] drink first t allison in the morning (EYE-CONSTRUCTION TECH) to steady your nerves or to get [...] Medical Office Building Surgical Specialties [address] [facility], [address] [place] [address] Francisco J Amor MD [address] [place] [address] 05/18/2025 7:30 AM EDT Appointment [facility] [address] 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 Expected: 02/26/2025 (Approximate), Expires: 08/29/2026 CT Lumbar Spine Myelogram Imaging Routine Lumbosacral radiculopathy Right leg pain Degeneration of intervertebral disc of lumbar 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 Expected: 02/26/2025 (Approximate), Expires: 08/29/2026 documented as of this encounter Visit Diagnoses Diagnosis Lumbosacral radiculopathy- Primary Thoracic or lumbosacral neuritis or radiculitis, unspecified Right leg pain Pain in soft tissues of limb Degeneration of intervertebral disc of lumbar 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 documented in this encounter Additional Health Concerns Assessment Noted Time A fall risk assessment has been complete d for the patient 02/19/2025 8:19 AM EDT A Body Mass Index follow-up plan has been documented for the patient 02/19/2025 2:55 PM EDT documented as of this encounter Care Teams Body Line Finisher Relationship Specialty Start Date End Date Meli Gallardo APRN [address] [place] [address] PCP - General 02/17/21 documented as of this encounter
--- OUTSIDE RECORDS SUMMARY | 2025-04-06 07:31 | XMS_ITS | Referral Summary ---
Author Organization [employer] ([place], [place], [place], [place]) Address [address] [place] [address] Care Team Providers Care Marketing Copywriter Name Role Phone Meli Gallardo APRN Primary Care Provider [phone] Allergies Active Allergy Reactions Criticality Noted Date [...] Do you speak a language other than Trinidadian at [facility]? No 12/04/2023 Do you want help with [...] 01/03/2024 10:04 AM EDT Plan of Treatment Not on file Insurance [facility] DUAL COMPLETE [facility] MEDICARE ADVANTAGE Advance Directives For more information, please contact: [phone] * Full Code (Latest Code Status on File) Date Activated Date Inactivated Comments 12/03/2023 8:33 PM 12/05/2023 6:12 PM Care Teams Marketing Copywriter Relationship Specialty Start Date End Date Meli Gallardo, SOLE DYER PCP - General Family Medicine 10/31/22
--- OUTSIDE RECORDS SUMMARY | 2025-04-06 07:31 | XMS_ITS | Encounter Summary ---
Author Organization Healthcare Address [address] [place] [address] Care Team Providers Care Brilliandeer Lopper Name Role Phone Meli Gallardo MIGUEL ANGEL Primary Care Provider [phone] Encounter Details Date Type Department Care Team (Latest Contact Info) Description 03/25/2025 Travel Social History Tobacco Use Types Packs/Day [...] How often do you attend chur or jainism services? Never 10/02/2024 Do you belong to [...] Recorded Patient Health Questionnaire-2 Score 0 02/24/2024 [facility] of Occupat ional Health - Occupational Stress [...] any time in the past 12 m [facility], were you homeless or living in a mcfp (including now)? No 10/02/2024 CAGE ASSESSMENT Answer [...] drink first t allison in the morning (EYE-PRINCIPAL RESEARCH ECONOMIST) to steady your nerves or to get [...] AM EDT documented as of this encounter Functional Status * Calculated C-SSRS [...] Guadalupe Vásquez documented as of this encounter Plan of Treatment Upcoming Encounters Date Type Department Care Team (Late st Contact Info) Description 04/19/2025 8:00 AM EDT Office Visit Medical Office Building Surgical Specialties [address] [facility], [address] [place] [address] Francisco J Amor MD [address] [address] 05/18/2025 7:30 AM EDT Appointment [facility] [address] [place] [address] Manuel Palacios MD [address] [place] [address] 08/13/2025 8:00 AM EST Office Visit [facility] [place] [address] [facility], [address] [place] [address] Raúl Miller DO [address] [place] [address] documented as of this encounter [...] documented as of this encounter Care Teams Brilliandeer Lopper Relationship Specialty Start Date End Date Meli Gallardo APRN [address] [place], [place] [id number] PCP - General 02/17/21 documented as of this encounter
--- OUTSIDE RECORDS SUMMARY | 2025-04-06 07:31 | XMS_ITS | Encounter Summary ---
Author Organization Healthcare Address [address] [place] [address] Care Team Providers Care Line Maintainer Section Name Role Phone Meli Gallardo JEWELRY MODEL MAKER Primary Care Provider [phone] Encounter Details Date Type Department Care Team (Late st Contact Info) Description 03/03/2025 Telephone [facility] [address], 1st [place] [address] Annabelle Solorio APRN [address] [place] [address] Social History Tobacco Use Types [...] How often do you attend chur or spiritism services? Never 10/02/2024 Do you belong to any clubs o r organizations such as taoist groups, unions, fraternal or athletic groups, or [...] Recorded Patient Health Questionnaire-2 Score 0 02/24/2024 [facility] Answer [...] time in the past 12 m [facility], were you homeless or living in a fdc (including now)? No 10/02/2024 CAGE ASSESSMENT Answer [...] drink first t allison in the morning (EYE-FRINGING MACHINE OPERATOR) to steady your nerves or to [...] encounter Miscellaneous Notes * Telephone Encounter - Orin Pedraza - 03/17/2025 2:10 PM EDT Patient Phone Message Reason for Call: [employer] with [facility] called to say that they are out of network with the pt's ins plan. They have scheduled the pt for Saturday but the pt would be responsible for the Myelogram. They need for someone to call to cancel the referral. The pt would need to be referred for the Myelogram at another participating provider. Please advise Best contact number and optimal time of day to reach caller: Ek[employer] [phone] Note: Please do not reply to this message. Follow-up communication and further actions as a result of this message need to be communicated with the patient directly, if the patient is not active onMyChart. If the patient is active on MyChart, they will receive notification of the communication/outcome via MyChart. * Telephone Encounter - Annabelle Solorio APRN - 03/08/2025 8:31 AM EDT Called patient and let her know Myelogram was approved. She will call when completed * Telephone Encounter - Annabelle Solorio APRN - 03/03/2025 5:57 PM EDT Spoke to patient. I ordered a CT myelogram to be done at [facility]. Potentially it has not been approved by insurance. We will send to front office assistant for review * Telephone Encounter - Francisca Kumar - 03/03/2025 2:20 PM EDT Patient Phone Message Reason for Call: Patient needs to make an appointment Best contact number and optimal time of day to reach caller: [phone] April Note: Please do not reply to [...] Upcoming Encounters Date Type Department Care Team ([facility] st Contact Info) Description 04/19/2025 8:00 AM EDT Office Visit Medical Office Building Surgical Specialties [address] [facility], [address] [place] [address] Francisco J Amor MD [address] [facility] 2nd [place] [address] 05/18/2025 7:30 AM EDT Appointment [facility] [address] [place] [address] Manuel Palacios MD [address] [place] [address] 08/13/2025 8:00 AM EST Office Visit [facility] [place] [address] [facility], [address] [place] [address] Raúl Miller, DO [address] [place] [address] documented as of this encounter [...] documented as of this encounter Care Teams Line Maintainer Section Relationship Specialty Start Date End Date Meli Gallardo APRN [address] [place] [address] PCP - General 02/17/21 documented as of this encounter
--- OUTSIDE RECORDS SUMMARY | 2025-04-06 07:31 | XMS_ITS | Encounter Summary ---
Author Organization [facility] Address [address] [place] [address] Care Team Providers Care Verifying Specialist Name Role Phone Meli Gallardo CENTER SALES AND SERVICE ASSOCIATE Primary Care Provider [phone] Reason for Referral * Consultation (Routine) - Closed Specialty Diagnoses / Procedures Referred By Estrellita alves Referred To Contact Gastroenterology Diagnoses Gastro-esophageal reflux disease without esophagitis Meli Gallardo, CENTER SALES AND SERVICE ASSOCIATE [address] [place] [address] Phone: tel: fax: Referral ID Status Reason Start Date Expiration Date V isits Requested Visits Authorized [id number] Closed Specialty Services Required 11/12/2022 05/13/2024 1 1 Encounter Details Date Type Department Care Team (Late st Contact Info) Description 11/12/2022 [facility] [address] [place] [address] Meli Gallardo, CENTER SALES AND SERVICE ASSOCIATE [address] [place], [place] [id number] Gastro-esophageal reflux disease without esophagitis (Primary Dx) Social History Tobacco Use Types [...] Medical Office Building Surgical Specialties [address] [facility], [address] [place] [address] Francisco J Amor MD [address] [facility] [address] [place] [address] 05/18/2025 7:30 AM EDT Appointment [facility] [address] [place] [address] Manuel Palacios MD [address] [place] [address] 08/13/2025 8:00 AM EST Office Visit [facility] [place] [address] [facility], [address] [place] [address] Raúl Miller, DO [address] [place] [address] Scheduled Referrals Name Type Priority Associated Diagnoses Order Schedule Ambulatory referral to Gastroenterology Outpatient Referral Routine Gastro-esophageal reflux disease without esophagitis Expected: 11/12/2022 (Approximate), Expires: 05/12/2024 documented as of this encounter Visit Diagnoses Diagnosis Gastro-esophageal reflux disease without esophagitis- Primary documented in this encounter Additional Health Concerns Assessment Noted Time A fall risk assessment has been complete d for the patient 05/08/2021 9:07 AM EDT documented as of this encounter Care Teams Verifying Specialist Relationship Specialty Start Date End Date Meli Gallardo APRN [facility] [place] [address] PCP - General 02/17/21 documented as of this encounter
--- OUTSIDE RECORDS SUMMARY | 2025-04-06 07:31 | XMS_ITS | Encounter Summary ---
Author Organization Healthcare Address [address] [place] [address] Care Team Providers Care Backroom Associate Name Role Phone Meli Gallardo SEED POTATO ARRANGER Primary Care Provider Reason for Visit * Reason Comments Med Refill Encounter Details Date Type Department Care Team (Late Contact Info) Description 08/31/2021 Refill [facility] Endocrinology [address] [place] [address] Debbie Patel, SEED POTATO ARRANGER [address] [facility] [address] [place] [address] Social History Tobacco Use Types Packs/Day Years [...] Encounters Date Type Department Care Team (Late Contact Info) Description 04/19/2025 8:00 AM EDT Office Visit Medical Office Building Surgical Specialties [address] [facility], [address] [place] [address] Francisco J Amor MD [address] [address] 05/18/2025 7:30 AM EDT Appointment [facility] [address] [place] [address] Manuel Palacios MD [address] [place] [address] 08/13/2025 8:00 AM EST Office Visit [facility] [place] [address] [facility], [address] [place] [address] Raúl Miller DO [address] [place] [address] documented as of this encounter Visit Diagnoses Not on filedocumented in this encounter Additional Health Concerns Assessment Noted Time A fall risk assessment has been complete d for the patient 05/08/2021 9:07 AM EDT documented as of this encounter Care Teams Backroom Associate Relationship Specialty Start Date End Date Meli Gallardo, MIGUEL ANGEL [address] [place] [address] PCP - General 02/17/21 documented as of this encounter
--- NOTE | 2025-04-06 07:32 | CT_ITS ---
FINAL REPORT CLINICAL HISTORY: post myelogram COMPARISON: None FINDINGS: CT LUMBAR SPINE WITH CONTRAST TECHNIQUE: Axial images were performed through the lumbar spine by computed tomography after the injection of intrathecal contrast. Sagittal and coronal reconstruction images were also performed. This study was performed with techniques to keep radiation doses as low as reasonably achievable, (ALARA). Individualized dose reduction techniques using automated exposure control or adjustment of mA and/or kV according to the patient's size were employed. FINDINGS: Sagittal reconstruction images demonstrate vertebrae are normal in height. There is mild anterior osteophyte formation at L3-4 and L4-5 levels. T12-L1: Unremarkable. L1-L2: Unremarkable. L2-L3: Unremarkable. L3-L4: Mild diffuse disc bulge. Endplate hypertrophy eccentric to the right. Pfqx-qu-aauqcqth right and mild left neural foraminal narrowing. L4-L5: Mild diffuse disc bulge. Endplate hypertrophy. Moderate bilateral neural foraminal narrowing. L5-S1: Mild diffuse disc bulge. Bilateral facet hypertrophy. Jbcf-[id number]-jzoqwlzx bilateral neural foraminal narrowing. Incidental note is made of a sacral stimulator lead. IMPRESSION: Hypertrophic changes of degenerative disc disease L3-4 through L5-S1 most evident at the L4-5 level with bilateral neural foraminal compromise. Reviewed, Interpreted and Dictated by Gelacio Meléndez MD Transcribed by Lenora Morel Authenticated and [facility]
[2025-04-06 08:21] VITALS: BP 156/86; PULSE 66; RESP 20; TEMP 36.4; O2SAT 98; BMI 29.8
[2025-04-06 09:20] VITALS: BP 127/72; PULSE 66; RESP 16; O2SAT 98
[2025-04-06] MEDS: IOPAMIDOL-200 (41%);10ML VIAL 20 ML IV (09:23)
[2025-04-06 09:50] VITALS: BP 117/68; PULSE 64; RESP 16; O2SAT 97
[2025-04-06 10:20] VITALS: BP 119/60; PULSE 68; RESP 18; O2SAT 98
[2025-04-06 10:50] VITALS: BP 117/63; PULSE 64; RESP 18; O2SAT 95
[2025-04-06 11:20] VITALS: BP 132/69; PULSE 63; RESP 18; O2SAT 95
== END 2025-04-06 23:59 | disposition home or self-care (01) ==
PROVIDERS: PCP Nurse Practitioner Family; Visit Provider Clinical Nurse Specialist Family Health
DX: M47.26 Other spondylosis with radiculopathy, lumbar region (principal); M47.27 Other spondylosis with radiculopathy, lumbosacral region; M99.73 Connective tissue and disc stenosis of intervertebral foramina of lumbar region; R59.9 Enlarged lymph nodes, unspecified
CPT/HCPCS: 62304; 72132; Q9966

== ENCOUNTER 2025-08-09 13:39 | Outpatient (RCR) | payer MEDICARE, MEDICAID, SELFPAY | END 2025-08-09 23:59 | disposition home or self-care (01) | LOC: PT 13:39 | PROVIDERS: PCP Nurse Practitioner Family; Visit Provider Neurological Surgery | DX: Z47.89 Encounter for other orthopedic aftercare (principal); Z98.1 Arthrodesis status | CPT/HCPCS: 97163 ==

== ENCOUNTER 2025-09-29 10:48 | Observation (INO) | payer MEDICARE, MEDICAID, SELFPAY ==
--- OUTSIDE RECORDS SUMMARY | 2025-07-30 18:43 | XMS_ITS | Encounter Summary ---
Author Organization [facility] Address [address] [place] [address] Care Team Providers Care Senior Technical Project Manager Name Role Phone Meli Gallardo APRN Primary Care Provider [phone] Tito Sue MD Unavailable [phone] Reason for Referral * Consultation (Routine) - Authorized Specialty Diagnoses / Procedures Referred By Estrellita alves Referred To Contact Neurosurgery Diagnoses Right sided sciatica Carl Bishop MD [address] [place] [address] Phone: tel: fax: Referral ID Status Reason Start Date Expiration Date Visits Requested Visits Authorized [id number] Authorized Specialty Services Required 01/30/2027 1 1 Scheduling Instructions Patient has acutely worsening right lower extremity pain that is persistent despite muscle relaxers, lyrica, and toradol. Appointment is not until 09/09 - would like to be seen sooner Reason for Visit * Reason Comments Back Pain * Auth/Cert (Routine) Specialty Diagnoses / Procedures Referred By Estrellita alves Referred To Contact Diagnoses . [facility] [address] [place] [address] Phone: tel: [facility] [address] [place] [address] Phone: tel: Referral ID Status Reason Start Date Expiration Date Visits Re quested Visits Authorized [id number] 1 1 Encounter Details Date Type Department Care Team (Late st Contact Info) Description 07/30/2025 7:43 PM EDT - 07/31/2025 3:30 PM EDT Hospital Encounter [facility] [address] [place] [id number] Jeferson Dubose MD [address] [place] [address] Ady Phelan MD [address] [place] [address] Carl Bishop MD [address] [place] [address] Right sided sciatica (Primary Dx) Discharge Disposition: Home or Self Care Social History Tobacco Use Types Packs/Day Years Used Date Smoking Tobacco: Never Passive Smoke Exposure: Never Smokeless Tobacco: Never Alcohol Use Standard Drinks/Week Comments Never 0 (1 standard drink = 0.6 oz pur e alcohol) Social Connection and Isolation Panel Answer Date Recorded In a typical week, how many times do you talk on the phone with family, friends, or neighbors? More than three times a week 10/02/2024 How often do you get togethe r with friends or relatives? More than three times a week 10/02/2024 How often do you attend chur or hindu services? Never 10/02/2024 Do you belong to any clubs o r organizations such as zoroastrianism groups, unions, fraternal or athletic groups, or [...] Recorded Patient Health Questionnaire-2 Score 0 02/24/2024 [facility] - Occupational Stress [...] exercise at this level? 30 min 10/02/2024 Humiliation, Afraid, Rape, and Kick questionnair e Answer Date Recorded Within the last year, have y ou been afraid of your partner or ex-partner? No 05/18/2025 Within the last year, have y ou been humiliated or emotionally abused in other ways by your partner or ex-partner? No Within the last year, have y ou been kicked, hit, slapped, or otherwise physically hurt by your partner or ex-partner? No 05/18/2025 Within the last year, have y ou been raped or forced to have any kind of sexual activity by your partner or ex-partner? No 05/18/2025 AUDIT-C Answer Date Recorded Q1: How often do you have a drink containing alcohol? Never 07/30/2025 Q2: How many drinks containi ng alcohol do you have on a typical day when you are drinking? Patient does not drink Q3: How often do you have si x or more drinks on one occasion? Never 07/30/2025 Hunger Vital Sign Answer Date Recorded Within the past 12 months, y ou worried that your food would run out before you got the money to buy more. Never true 05/18/20 25 Within the past 12 months, t he food you bought just didn't last and you didn't have money to get more. Never true 05/18/2025 PRAPARE - Transportation Answer Date Re corded In the past 12 months, has l ack of transportation kept you from medical appointments or from getting medications? No 05/07 In the past 12 months, has l ack of transportation kept you from meetings, work, or from getting things needed for daily living? No 05/18/2025 Housing Stability Vital Sign Answer Isidro e Recorded In the last 12 months, was t here a time when you were not able to pay the mortgage or rent on time? No 05/18/2025 Number of Times Moved in the Last Year Not on fi le 05/18/2025 At any time in the past 12 m [facility], were you homeless or living in a half-way (including now)? No 05/18/2025 CAGE ASSESSMENT Answer Date Recorded Cage unable [...] drink first t allison in the morning (EYE-PRICING STRATEGIST) to steady your nerves or to get rid of a hangover? 0 10/01/2024 CAGE Questionnaire Score 0 024 Utilities Answer Date Recorded In the past 12 months has th e electric, gas, oil, or water company threatened to shut off services in your home? No 05/18/2025 Comments No Sex and Gender Information Value Date Recorded Sex Assigned at Female 10/02/2023 1:40 PM EST Legal Sex Female 7:54 PM EDT Gender Identity Female 10/02/2023 1:40 PM EST Sexual Orientation Straight 02/08/2023 6: 04 AM EDT documented as of this encounter Last Filed Vital Signs Vital Sign Reading Time Taken Comments Blood Pressure 135/78 07/31/2025 12:50 PM EDT Pulse 75 07/31/2025 12:50 PM EDT Temperature 36.6 C (97.9 F) 07/31/2025 12:50 PM EDT Respiratory Rate 18 07/31/2025 12:50 PM EDT Oxygen Saturation 94% 07/31/2025 12:50 PM EDT Inhaled Oxygen Concentration - - Weight 75.8 kg (167 lb) 07/30/2025 7:11 PM EDT Height 154.9 cm (5' 1 ) 07/30/2025 7:11 PM EDT Body Mass Index 31.55 07/30/2025 7:11 PM EDT documented in this encounter Functional Status * PT Therapeutic Procedures Time Entry Question Answer Date of Assessment Author Therapeutic Activity Time Entry 13 10:37 AM EDT Alejandrina Gonzalez * PARRISH Question Answer Date of Assessment Author PARRISH (WDL) X 07/31/2025 12:00 PM EDT Ramy Edmonds RN R Ear Mildly impaired hearing 07/31/2025 12:00 PM EDT Ramy Huerta RN L Ear Mildly impaired hearing 07/31/2025 12:00 PM EDT Ramy Huerta RN * BMI (Calculated) Answer Date of Assessment Author 31.6 07/30/2025 7:11 PM EDT Pegg, Giovanny Lazcano RN * Percent Excess Weight Loss Answer Date of Assessment Author 0 07/30/2025 7:11 PM EDT Pegg, Giovanny Lazcano, RN * Total Weight Change Percent Answer Date of Assessment Author 2222 07/30/2025 7:11 PM EDT Pegg, Giovanny coyne B, RN * Weight Change Since Preop Answer Date of Assessment Author 75.73 07/30/2025 7:11 PM EDT Pegg, Giovanny coyne B, RN * Initial Excess Weight Answer Date of Assessment Author -47.63 07/30/2025 7:11 PM EDT Pegg, Giovanny Lazcano, RN * IBW in lbs (Bariatric) Answer Date of Assessment Author 105 07/30/2025 7:11 PM EDT Pegg, Giovanny doretha B, RN * Weight Change Since Last Visit Answer Date of Assessment Author 75.73 07/30/2025 7:11 PM EDT Pegg, Giovanny doretha B, RN * IBW in kg (Bariatric) Answer Date of Assessment Author 47.63 07/30/2025 7:11 PM EDT Pegg, All doretha B, RN * Percent of IBW Answer Date of Assessment Author 5,609.91 07/30/2025 7:11 PM EDT Pegg, Giovanny Lazcano, RN * EBW (kg) Answer Date of Assessment Author 2,754.65 07/30/2025 7:11 PM EDT Pegg, Sixto Lazcano RN * EBW (lbs) Answer Date of Assessment Author 2,675.44 07/30/2025 7:11 PM EDT Giovanny Joya RN * Pain Management Interventions Answer Date of Assessment Author medication (see MAR) 07/31/2025 11:55 AM EDT Ramy Ayala, EFE * Safety Interventions Question Answer Date of Assessment Author Safety Precautions/Falls Reduction assistive device/personal items within reach;family at bedside;nonskid shoes/slippers when out of bed;toileting offered 07/30/2025 8:05 PM EDT Svetlana Stanley All Alarms none present 07/30/2025 8:05 PM EDT Svetlana Stanley * General Emergency Care CPG Interventions Question Answer Date of Assessment Author Coping Interventions care explained to patient/family prior to performing;questions answered 07/30/2025 8:05 PM EDT Svetlana Stanley General Care Management family presence promoted;medication response monitored;monitored for physiologic status changes;pain relief monitored;positioned for comfort 07/30/2025 8:05 PM EDT Svetlana Stanley * Weight Change 24 hrs Answer Date of Assessment Author .907 07/30/2025 7:11 PM EDT Giovanny Joya RN * Precautions Question Answer Date of Assessment Author Medical Precautions Fall precautions 07/31/2025 10:56 AM EDT Susie Stanley * Date of OT Session Question Answer Date of Assessment Author OT Initials SKP 07/31/2025 10:56 AM EDT Susie Myers * Participants in Care Question Answer Date of Assessment Author Cardiac Tech N/A 07/31/2025 10:56 AM MART Susie Myers Family/Caregiver Present N 07/31/2025 10:56 AM EDT Susie Stanley * Presentation Question Answer Date of Assessment Author Pre-Session Supine;Head of bed elevated;Lines intact 07/31/2025 10:56 AM Susie Du Post-Session Supine;Head of bed elevated;Lines intact;RN notified;Call light in reach 07/31/2025 10:56 AM Susie Du Pre-Session Comments RN agreeable to evaluation. 07/31/2025 10:56 AM Susie Du Post-Session Comments Pt positioned for comfort in the bed all needs met. 07/31/2025 10:56 AM EDSusie Irving * Delirium Assessment Question Answer Date of Assessment Author RASS 0 07/31/2025 10:56 AM EDT Pric Susie boyd * JHHLM Question Answer Date of Assessment Author JH HLM Daily Mobility Score 7 07/31/2025 10 :56 AM EDT Susie Stanley * Sensation Question Answer Date of Assessment Author Light Touch: Right Upper Extremity Intact 2024 10:56 AM EDT Susie Stanley * Sensation Question Answer Date of Assessment Author Light Touch: Left Upper Extremity Intact 025 10:56 AM EDT Susie Stanley * Sensation Question Answer Date of Assessment Author Light Touch: Right Lower Extremity Moderate impairment 07/31/2025 10:56 AM EDT Susie Stanley * Sensation Question Answer Date of Assessment Author Light Touch: Left Lower Extremity Intact 025 10:56 AM Susie Du * Bed Mobility Exam: Scooting/Bridging Question Answer Date of Assessment Author Level of [place] Stand-by assist 07/31/2025 10:56 AM Susie Du Physical/Nonphysical Assist Verbal Cues 07/31/2025 10 :56 AM EDSusie Irving * Bed Mobility Exam: Supine to Sit Question Answer Date of Assessment Author Level of [place] Stand-by assist 07/31/2025 10:56 AM Susie Du Physical/Nonphysical Assist HOB elevated ;Minimal cues 07/31/2025 10:56 AM EDSusie Irving * Bed Mobility Exam: Sit to Supine Question Answer Date of Assessment Author Level of [place] Stand-by assist 07/31/2025 10:56 AM Susie Du Physical/Nonphysical Assist HOB elevated ;Minimal cues 07/31/2025 10:56 AM Susie Du * Transfer Exam: Sit to stand Question Answer Date of Assessment Author Level of [place] Stand-by assist 07/31/2025 10:56 AM Susie Du Physical/Nonphysical Assist Verbal Cues 07/31/2025 10 :56 AM Susie Du Assistive Device Cane, straight 07/31/2025 10:56 AM ED T Susie Stanley * Transfer Exam: Stand to Sit Question Answer Date of Assessment Author Level of [place] Stand-by assist 07/31/2025 10:56 AM Susie Du Physical/Nonphysical Assist Verbal Cues 07/31/2025 10 :56 AM Susie Du Assistive Device Walker, rolling 07/31/2025 10:56 AM Susie Hadley * Toilet Transfer Question Answer Date of Assessment Author Assistive Device Walker, rolling;Grab bar 07/31/2025 10:37 AM Alejandrina Silva Type of Transfer Ambulation;To toilet 07/31/2025 10:56 AM Susie Du Level of [place] Stand-by assist 07/31/2025 10:37 AM EDT Alejandrina Gonzalez Physical/Nonphysical Assist Verbal Cues 07/31/2025 10:37 AM EDT Alejandrina Gonzalez * Postural Appearance Question Answer Date of Assessment Author Posture WFL 07/31/2025 10:56 AM EDT Susie Myers * Interventions Question Answer Date of Assessment Author Self-Care Interventions 07/31/2025 10:56 AM Susie Du * Lower Extremity Dressing Question Answer Date of Assessment Author LE Dressing Interventions Pt utilized juliann lockett sitting to don footwear at eob with SBA prior to out of bed mobility. 07/31/2025 10:56 AM Susie Du LE Dressing Where Assessed Edge of bed 07/31/2025 10: 56 AM Susie Du Sock Level of Assistance Setup 07/31/2025 10:56 AM Susie Du Shoe Level of Assistance Setup 07/31/2025 10:56 AM Susie Du * Toileting Question Answer Date of Assessment Author Toileting Interventions Pt ambulated to the commode and transferred with SBA and min verbal cues for rolling walker positioning. She was able to complete mona hygeine and clothing management sitting/standing at the commode with SBA without loss of balance. 07/31/2025 10:56 AM Susie Du Where Assessed Toilet 07/31/2025 10:56 AM Susie Du Toileting Level of Assistance SBA 07/31/2025 10:56 AM Susie Du * General Question Answer Date of Assessment Author Date of PT Session [id number] 07/31/2025 10:37 AM ED T Alejandrina Gonzalez Patient/Family Goals Statement To return home 07/31/2025 10:37 AM EDT Jeff Gonzalez sey * Plan Question Answer Date of Assessment Author Discharge Recommendation Home with assistance;Outpatient PT 07/31/2025 10:37 AM EDT Alejandrina Gonzalez Equipment Recommended Patient owns appropriate equipment 07/31/2025 10:37 AM EDT Alejandrina Gonzalez PT - OK to Discharge Yes 07/31/2025 10:37 AM EDT Alejandrina Gonzalez * PT Assessment Question Answer Date of Assessment Author History Profile 1 - 2 personal facto rs and/or comorbidities 07/31/2025 10:37 AM EDT Alejandrina Gonzalez Clinical Presentation Stable and/or uncomplicated characteristics 07/31/2025 10:37 AM MART Alejandrina Gonzalez Clinical Decision Making Low complexity 07/31/2025 10:37 AM EDT Alejandrina Gonzalez * Ambulation Question Answer Date of Assessment Author Distance 40' with SPC transitioning to RW for additonal 40' to bathroom + 80' 07/31/2025 10:37 AM EDT Alejandrina Gonzalez Device Single point cane;Ro lling walker 07/31/2025 10:37 AM EDT Alejandrina Gonzalez Ambulation Comments Patient demonstrates with increased lateral sway, decreased juliann, and antalgic gait with SPC to RUE; PT provided RW and noted with increased juliann, improved stability, and reports of decreased pain with BUE support. PT provided verbal cues for safe AD proximity and pacing. 07/31/2025 10:37 AM EDT Alejandrina Gonzalez * HLM Score Question Answer Date of Assessment Author JACK HLM Daily Mobility Goal 7 07/31/2025 8:0 0 AM EDT Ramy Huerta RN * Pressure Injury Prevention (PIP) Interventions Question Answer Date of Assessment Author Pressure Reducing Devices Pillow 07/31/2025 8:00 AM EDT Ramy Huerta, EFE Bed Type Stretcher 07/31/2025 12:00 PM EDT Ramy Edmonds, EFE * Vital Signs Question Answer Date of Assessment Author BP 135/78 07/31/2025 12:50 PM EDT aSbiha Brenner Sandrine Temp 97.9 07/31/2025 12:50 PM EDT Rich ards, Sabiha J Temp src Oral 07/31/2025 12:50 PM EDT Rich ards, Sabiha J Pulse 75 07/31/2025 12:50 PM EDT Rich ards, Sabiha Deluca Resp 18 07/31/2025 12:50 PM EDT Rich ards, Sabiha Deluca Heart Rate Source Monitor 07/31/2025 12:50 PM EDT Sabiha Retana BP Location Right arm 07/31/2025 12:50 PM EDT Rich ards, Sabiha Deluca BP Method Automatic 07/31/2025 12:50 PM EDT Mack ards, Sabiha Deluca Cardiac Rhythm NSR 07/31/2025 8:12 AM EDT Sabiha Camejo MAP (mmHg) 97 07/31/2025 12:50 PM EDT Sabiha Brenner Patient Position Lying 07/31/2025 12:50 PM EDT Sabiha Retana * Oxygen Therapy Question Answer Date of Assessment Author SpO2 94 07/31/2025 12:50 PM EDT Sabiha Brenner Pulse Oximetry Type Intermittent 07/31/2025 12:50 PM E Sabiha Reich Patient Activity During SpO2 Measurement At rest 07/31/2025 12:50 PM EDT Jaja Retana Oxygen Therapy None 07/31/2025 12:50 PM EDT Sabiha Parikh Oximetry Probe Site Location Right Digit 07/31/2025 12:50 PM EDT Jaja Retana * Gastrointestinal Question Answer Date of Assessment Author Gastrointestinal (WDL) WDL 07/31/2025 12:00 P M EDT Ramy Huerta RN * RLE Neurovascular Assessment Question Answer Date of Assessment Author RLE Sensation Pain;Tingling;Numbne s s 07/31/2025 12:00 PM EDT Ramy Huerta RN RLE Capillary Refill Less than/equal to 2 seconds 07/31/2025 12:00 PM EDT Ramy Huerta RN R Pedal Pulse +2 07/31/2025 12:00 PM EDT Ramy Ayala RN * LLE Neurovascular Assessment Question Answer Date of Assessment Author LLE Sensation Tingling;Numbness 07/31/2025 12:00 PM ED T Ramy Huerta RN LLE Capillary Refill Less than/equal to 2 seconds 07/31/2025 12:00 PM EDT Ramy Huerta RN L Pedal Pulse +2 07/31/2025 12:00 PM EDT Ramy Ayala RN * Musculoskeletal Details Question Answer Date of Assessment Author Lower Back Pain with movement 07/31/2025 12:00 PM ED T Ramy Huerta RN * Musculoskeletal Question Answer Date of Assessment Author Musculoskeletal (WDL) X 07/31/2025 12:00 PM EDT Ramy Huerta RN * Psychosocial Question Answer Date of Assessment Author Psychosocial (WDL) WDL 07/31/2025 12:00 PM ED T Ramy Huerta RN * Intake Question Answer Date of Assessment Author [address] 07/31/2025 12:30 PM EDT Ramy Edmonds RN * Aminata Fall Risk Question Answer Date of Assessment Author History of Falling, Immediat e or Within 3 Months 0 07/31/2025 8:00 AM EDT Rmay Huerta R N Secondary Diagnosis 15 07/31/2025 8:00 AM ED T Ramy Huerta RN Ambulatory Aid 0 07/31/2025 8:00 AM EDT Ramy Ayala RN Intravenous Therapy/Heparin Lock 20 07/31/20 8:00 AM EDT Ramy Huerta RN Gait/Transferring 0 07/31/2025 8:00 AM EDT Ramy Huerta RN Mental Status 0 07/31/2025 8:00 AM EDT Ramy Edmonds RN Morse Fall Risk Score 35 07/31/2025 8:00 AM EDT Ramy Huerta RN * Alex Scale Question Answer Date of Assessment Author Sensory Perceptions 4 07/31/2025 8:00 AM ED T Ramy Huerta RN Moisture 4 07/31/2025 8:00 AM EDT Ramy Lynne RN Activity 3 07/31/2025 8:00 AM EDT Ramy Lynne RN Mobility 3 07/31/2025 8:00 AM EDT Ramy Lynne RN Nutrition 3 07/31/2025 8:00 AM EDT Ramy Lynne RN Friction and Shear 3 07/31/2025 8:00 AM EDT Ramy Huerta RN Alex Scale Score 20 07/31/2025 8:00 AM EDT Ramy Huerta RN * BSA (Calculated - sq m) Answer Date of Assessment Author 1.81 07/30/2025 7:11 PM EDT Giovanny Joya RN * BMI (Calculated) Answer Date of Assessment Author 31.57 07/30/2025 7:11 PM EDT Giovanny Joya RN * Cardiac Question Answer Date of Assessment Author Cardiac ([facility] 07/31/2025 12:00 PM EDT Ramy Ayala RN * Respiratory Question Answer Date of Assessment Author Respiratory ([facility]) [facility] 07/31/2025 12:00 PM EDT Ramy Huerta RN * RLE ROM Assessment Question Answer Date of Assessment Author RLE Assessment [facility] 07/31/2025 10:56 AM EDT Susie Ziegler * LLE ROM Assessment Question Answer Date of Assessment Author LLE Assessment [facility] 07/31/2025 10:56 AM EDT Susie Ziegler * Vision - Basic Assessment Question Answer Date of Assessment Author Baseline Vision Glasses distance 07/31/2025 10:56 AM E Susie Sky * Percent Meals Eaten (%) Answer Date of Assessment Author 100 07/31/2025 8:30 AM EDT Ramy Huerta RN * Genitourinary Question Answer Date of Assessment Author Genitourinary (WD) [facility] 07/31/2025 12:00 PM E Ramy Mckinley RN * Neurological Question Answer Date of Assessment Author Level of Consciousness Alert 07/31/2025 12:00 P M EDT Ramy Huerta RN Orientation Level Oriented X4 07/31/2025 12:00 PM EDT Ramy Huerta RN Cognition Follows commands 07/31/2025 12:00 PM EDT Ramy Huerta RN Neuro (WDL) X 07/31/2025 12:00 PM EDT Ramy Edmonds RN * Height and Weight Question Answer Date of Assessment Author Height 61 07/30/2025 7:11 PM EDT Sharon Joya RN Weight 2672 07/30/2025 7:11 PM EDT Sharon Joya RN Height Method Stated 07/30/2025 7:11 PM EDT Sharon Joya RN Weight Method Stated 07/30/2025 7:11 PM EDT Sharon Joya RN * Prior Function Question Answer Date of Assessment Author Level of Mobility Ambulatory- community 07/31/2025 10: 56 AM EDT Susie Stanley Mobility [place] Independent gait w ith device 07/31/2025 10:56 AM EDT Jaden Susie History of Falls No 07/31/2025 10:56 AM EDT Susie Stanley ADL Performance Needs assistance 07/31/2025 10:56 AM E DT JadenSusie Receives Help From No assist required p rior to admission 07/31/2025 10:56 AM EDT Jaden Susie Bathing Needs device 07/31/2025 10:56 AM EDT Pric mervat Susie Upper Body Dressing Independent 07/31/2025 10:56 AM E DT Jaden Susie Lower Body Dressing Independent 07/31/2025 10:56 AM E DT Jaden Susie Grooming Independent 07/31/2025 10:56 AM EDT Pric e, Susie Toileting Independent 07/31/2025 10:56 AM EDT Pric e, Susie Eating Independent 07/31/2025 10:56 AM EDT Pric e, Susie Home Management Skills Independent 07/31/2025 10:56 A M EDT Jaden Susie * RUE ROM Assessment Question Answer Date of Assessment Author ERIS Assessment [facility] 07/31/2025 10:56 AM EDT Susie Ziegler * LUE ROM Assessment Question Answer Date of Assessment Author HOMA Assessment [facility] 07/31/2025 10:56 AM EDT Susie Ziegler * Safe Environment Question Answer Date of Assessment Author 37-Pin Connection [Bed and Wall] Yes 07/31/2025 8:00 AM EDT Ramy Huerta R N Arm Bands On ID 07/31/2025 8:00 AM EDT Ramy Lynne RN Side Rails/Bed Safety 2/2 07/31/2025 8:00 AM EDT Ramy Huerta RN NonSkid Footwear On;Patient in bed 07/31/2025 8:00 AM EDT Ramy Huerta RN The Patient's Environment is Safe Yes 07/31/2025 8:00 AM EDT Ramy Huerta R N Head of Bed Angle 30 07/31/2025 8:00 AM EDT Ramy Huerta RN Bed Foot Left Rail Up State Yes 07/31/2025 8:00 AM EDT Ramy Huerta R N Bed Head Right Rail Up State Yes 07/31/2025 8:00 AM MART Ramy Huerta RN Bed Head Left Rail Up State Yes 07/31/2025 8:00 AM EDT Ramy Huerta R N Bed Foot Right Rail Up State Yes 07/31/2025 8:00 AM EDT Ramy Huerta R N Bed Exit System Activate Status Yes 07/31/2025 8:00 AM EDT Ramy Huerta R N Bed Brake State Yes 07/31/2025 8:00 AM MART Ramy Godinez RN Bed Low Height State Yes 07/31/2025 8:00 AM E Ramy Mckinley RN Chair Exit System Activate Status Yes 07/31/2025 8:00 AM EDT Ramy Huerta R N * Fall Risk Interventions Question Answer Date of Assessment Author Enhanced Safety Measures education provided;family to remain at bedside;room near unit station 07/31/2025 8:00 AM Ramy De La Vega RN Toilet Every 2 Hours-In Advance of Need Yes 07/31/2025 8:00 AM EDT Ramy Huerta R N Hourly Visual Checks In bed 07/31/2025 8:00 AM E Ramy Mckinley RN Room Door Open Deferred to promote rest 07/31/2025 8:00 AM EDT Ramy Huerta RN Gait Belt Used For Transfers Not applicable 07/31/2025 8:00 AM Ramy De La Vega R N Fall Bundle Components Call light within reach;Personal belongings within reach;Overbed table within reach;Bed in lowest position;Bed wheels locked;Non-skid footwear on if up in chair or ambulating;Staff to remain with patient during ambulation and tranfers 07/31/2025 8:00 AM Ramy De La Vega RN * Mobility Question Answer Date of Assessment Author Range of Motion active ROM (range of motion) encouraged 07/31/2025 8:00 AM Ramy De La Vega RN Activity Management activity adjusted pe r tolerance 07/31/2025 8:00 AM Ramy De La Vega RN Body Position turned 07/31/2025 8:00 AM Ramy Sanchez RN VTE Prevention/Management bilateral;lower extremity;SCDs (sequential compression devices) off;education provided 07/31/2025 12:00 PM Ramy De La Vega RN Head of Bed (HOB) Positioning HOB elevated 07/31/2025 8:00 AM Ramy De La Vega RN Heels/Feet Foot of bed elevated;Heels elevated off bed 07/31/2025 8:00 AM Ramy De La Vega RN Positioning Frequency Able to turn self 07/31/2025 8:0 0 AM aRmy De La Vega RN * Hygiene Question Answer Date of Assessment Author Oral Care mouth moisturizer 07/31/2025 8:00 AM Ramy De La Vega RN Oral Care (Yes/No) Yes 07/31/2025 8:00 AM Ramy De La Vega RN * Precautions Question Answer Date of Assessment Author Isolation Precautions protective 07/31/2025 8:00 AM Ramy De La Vega RN Precautions Environmental surveillance 07/31/2025 8:00 AM Ramy De La Vega RN * Comfort and Environment Interventions Question Answer Date of Assessment Author Comfort Repositioned 07/31/2025 8:00 AM Ramy Suresh RN * Safety Equipment at Bedside Question Answer Date of Assessment Author Standard Bedside Safety Ambu bags in hallway;Suction available, setup and working;Oxygen available and working 07/31/2025 8:00 AM EDT Ramy Huerta RN Additional Bedside Safety Bed in locked and low position;Clutter free environment 07/31/2025 8:00 AM EDT Ramy Huerta RN * IBW/kg (Calculated) Male Answer Date of Assessment Author 52.3 07/30/2025 7:11 PM EDT Giovanny Joya RN * IBW/kg (Calculated) Female Answer Date of Assessment Author 47.8 07/30/2025 7:11 PM EDT Giovanny Joya RN * Hourly Rounding Question Answer Date of Assessment Author Hourly Rounding Complete Per Guideline Yes 07/31/2025 12:00 PM EDT Ramy Huerta RN * Patient Violence Risk Assessment Question Answer Date of Assessment Author History of Violence: In the past 12 hours has the PATIENT exhibited any of the following? None 07/31/2025 8:00 AM EDT Ramy Huerta RN Potential for Violence: In the past 12 hours has the PATIENT exhibited any of the following? None 07/31/2025 8:00 AM EDT Ramy Huerta RN Risk No identified risk 07/31/2025 8:00 AM EDT Ramy Huerta RN History of Violence: In the past 12 hours has a PARTNER IN CARE of the patient exhibited any of the following? None 07/31/2025 8:00 AM EDT Ramy Huerta R N * Airway Question Answer Date of Assessment Author Airway (WD) [facility] 07/31/2025 12:30 AM EDT Jina Cardenas RN * Breathing Question Answer Date of Assessment Author Breathing (WD) [facility] 07/31/2025 12:30 AM EDT Jina Lea RN * Circulation Question Answer Date of Assessment Author Circulation ([facility]) [facility] 07/31/2025 12:30 AM EDT Jina Reno RN * Disability Question Answer Date of Assessment Author Disability (WD) [facility] 07/31/2025 12:30 AM EDT Jina Reno RN * Restart Vitals Timer Answer Date of Assessment Author Yes 07/31/2025 12:50 PM EDT Sabiha Retana J * IBW/kg (Calculated) Answer Date of Assessment Author 47.8 07/30/2025 7:11 PM EDT Giovanny Joya, RN * Grooming Question Answer Date of Assessment Author Grooming Interventions Pt completed hand hygeine standing at the sink with min verbal cues for rolling walker positioning and SBA. 07/31/2025 10:56 AM Susie Du Grooming Where Assessed Standing sinkside 2024 10:56 AM Susie Du Grooming Level of Assistance SBA;Minimal verbal cues 07/31/2025 10:56 AM Susie Du * Dynamic Standing Balance Question Answer Date of Assessment Author Dynamic Standing Level of Assistance Standby assist 07/31/2025 10:56 AM Susie Du Dynamic Standing-Balance Support Left upper extremity support;Right upper extremity support 07/31/2025 10:56 AM Susie uD Dynamic Standing-Balance Lateral weight shifts;Anterior/Posteri or weight shifts 07/31/2025 10:56 AM Susie Du * General Question Answer Date of Assessment Author Date of OT Session [id number] 07/31/2025 10:56 AM Susie Long * Home Living Question Answer Date of Assessment Author Home Type House 07/31/2025 10:56 AM Susie Samson Number of Stairs 1 07/31/2025 10:56 AM Susie Du Bathroom: Tub/Shower Tub/Shower combo;Sh ower chair;Handheld shower head;Grab bars 07/31/2025 10:56 AM Susie Du Bathroom: Toilet Tall 07/31/2025 10:56 AM Susie Du Bathroom: Accessibility Accessible via walker 07/31/20 10:56 AM Susie Du Home Living Comments Spouse works during the day; family lives next door and can assist if needed. Patient has not driven since surgery 07/31/2025 10:56 AM Susie Du Home Layout Stairs to enter with rails;One level 07/31/2025 10:56 AM Susie Du Home Adaptive Equipment Cane;Rolling walker;shower chair 07/31/2025 10:56 AM EDT Susie Stanley Lives With Spouse 07/31/2025 10:56 AM EDT Kaylashruthi Susie boyd * Date of PT Session Question Answer Date of Assessment Author PT Initials KIR 07/31/2025 10:37 AM EDT Alejandrina Nance * Calculated C-SSRS Risk Score (Lifetime/Recent) Answer Date of Assessment Author No Risk Indicated 07/30/2025 8:06 PM EDT Svetlana Stanley * AUDIT-C Score Answer Date of Assessment Author 0 07/30/2025 7:14 PM EDT Giovanny Joya RN * [place] Coma Scale Question Answer Date of Assessment Author Best Eye Response Spontaneous 07/31/2025 12:00 PM EDT Ramy Huerta RN Best Verbal Response Oriented 07/31/2025 12:00 PM EDT Ramy Huerta RN Best Motor Response Follows commands 07/31/2025 12:00 PM EDT Ramy Huerta RN [place] Coma Scale Score 15 07/31/2025 12:00 PM EDT Ramy Huerta RN * Alcohol Use Question Answer Date of Assessment Author Q1: How often do you have a drink containing alcohol? Never 07/30/2025 7:14 PM EDT Sharon Joya RN Q2: How many drinks containing alcohol do you have on a typical day when you are drinking? Patient does not drink 07/30/2025 7:14 PM EDT Sharon Joya RN Q3: How often do you have six or more drinks on one occasion? Never 07/30/2025 7:14 PM EDT Sharon oJya RN * Seizure Question Answer Date of Assessment Author Seizure No 07/31/2025 12:30 AM EDT Jina Cardenas RN * Acuity Question Answer Date of Assessment Author Patient Acuity 3 07/30/2025 7:14 PM EDT Sharon Hackett RN * Learning Assessment Question Answer Date of Assessment Author Education Level High school 07/30/2025 8:05 PM EDT Svetlana Ziegler Factors that Impact Ability to Learn None 07/08 8:05 PM EDT Svetlana Stanley Cultural Considerations None 07/30/2025 8:05 P M EDT Svetlana Stanley Anabaptism Considerations None 07/30/2025 8:05 PM EDT Svetlana Stanley * Abuse Screen Question Answer Date of Assessment Author Are you or have you been thr eatened or abused physically, emotionally, or sexually by a partner, spouse, or family member? No 07/30/2025 8:02 PM EDT Svetlana Stanley * KINDER 1 Fall Risk Factor Assessment Question Answer Date of Assessment Author Presented to ED because of fall 0 07/31/2025 12:30 AM EDT Jina Reno RN Age > 70 0 07/31/2025 12:30 AM EDT Jina Reno RN Intoxicated with alcohol or substance confusion 0 07/31/2025 12:30 AM EDT Jina Reno RN Ambulates or transfers with assistive devices or assist 0 07/31/2025 12:30 AM EDT Jina Reno RN Unable to ambulate or transfer 0 07/31/2025 12:30 AM EDT Jina Reno RN Nursing judgement 0 07/31/2025 12: 30 AM EDT Jina Reno RN KINDER 1 Fall Risk Score 0 025 12:30 AM EDT Jina Reno RN High Fall Risk Interventions for Scores 1 and above Bed in lowest position and locked;Call light within reach;Belongings within reach;Following general safety rules;Patient/family told to always call for assistance 07/31/2025 12:30 AM EDT Jina Reno RN * [place] Suicide Severity Rating Scale Question Answer Date of Assessment Author Is patient awake, alert, and able to answer questions appropriately? Yes 07/30/2025 8:06 PM EDT Svetlana Stanley * Patient Belongings Placed in Locker Question Answer Date of Assessment Author Clothing Pants;Shirt;Footwear 07/30/2025 8:05 PM E Svetlana Sky Belongings at Bedside Medical equipment;Clothing;Electro erin devices 07/30/2025 8:05 PM EDT Svetlana Stanley Medical Equipment Cane 07/30/2025 8:05 PM EDT Svetlana Stanley * HEENT Question Answer Date of Assessment Author HEENT (WDL) X 07/31/2025 12:59 AM EDT Jina Cardenas RN * [place] Suicide Severity Rating Scale Question Answer Date of Assessment Author 1. Wish to be (Past 1 Month) No 025 8:06 PM EDT Svetlana Stanley 2. Non-Specific Active Suici judy Thoughts (Past 1 Month) No 07/30/2025 8:06 PM EDT Svetlana Stanley 6. Suicidal Behavior (Lifetime) No 8:06 PM EDT Svetlana Stanley * Peripheral Vascular Question Answer Date of Assessment Author Peripheral Vascular Pertinent Negatives +2 pulses;Capillary refill brisk 07/31/2025 12:30 AM EDT Jina Reno, RN Peripheral Vascular (WDL) X 07/31/2025 12:30 AM EDT Jina Reno RN * Weight in (lb) to have BMI = 25 Answer Date of Assessment Author 132 07/30/2025 7:11 PM EDT Pegg, Giovanny Lazcano, RN * BMI (Calculated) Answer Date of Assessment Author 31.6 07/30/2025 7:11 PM EDT Pegg, Giovanny Lazcano, RN * Percent Excess Weight Loss Answer Date of Assessment Author 0 07/30/2025 7:11 PM EDT Pegg, Giovanny doretha B, RN * Weight Change Since Preop Answer Date of Assessment Author 75.75 07/30/2025 7:11 PM EDT Pegg, Giovanny Lazcano, RN * Initial Excess Weight Answer Date of Assessment Author -47.63 07/30/2025 7:11 PM EDT Pegg, All doretha B, RN * IBW in kg (Bariatric) Answer Date of Assessment Author 47.63 07/30/2025 7:11 PM EDT Pegg, Giovanny doretha B, RN * IBW in lb (Bariatric) Answer Date of Assessment Author 105 07/30/2025 7:11 PM EDT Pegg, All doretha B, RN * Weight Change Since Last Visit Answer Date of Assessment Author 75.75 07/30/2025 7:11 PM EDT Pegg, All doretha B, RN * Percent of IBW Answer Date of Assessment Author 159.05 07/30/2025 7:11 PM EDT Toan, Sixto Lazcano RN * EBW (kg) Answer Date of Assessment Author 28.1 07/30/2025 7:11 PM EDT Toan, Giovanny Lazcano RN * EBW (lb) Answer Date of Assessment Author 62 07/30/2025 7:11 PM EDT Pegpiper, Giovanny Lazcano RN * Difference in Weight Since Last Visit Answer Date of Assessment Author 0.91 07/30/2025 7:11 PM EDT Toan, Giovanny Lazcano RN * Pain Type Answer Date of Assessment Author Acute pain 07/31/2025 11:55 AM EDT Ramy Huerta RN * Temp (in Celsius) for YAKUTAT IV Answer Date of Assessment Author 36.6 07/31/2025 12:50 PM EDT Sabiha Retana * Pain Assessment Question Answer Date of Assessment Author Pain Location Back;Leg 07/31/2025 8:00 AM EDT Ramy Edmonds RN Pain Orientation Left 07/31/2025 8:00 AM EDT Ramy Killian RN Pain Descriptors Aching 07/31/2025 8:00 AM EDT Ramy Huerta RN Pain Frequency Constant/continuous 07/31/2025 8:00 AM EDT Ramy Huerta RN Patient's Stated Pain Goal 4 07/31/2025 8:00 AM EDT Ramy Huerta R N * Nutrition Question Answer Date of Assessment Author Diet Type Regular 07/31/2025 8:00 AM EDT Ramy Lynne RN Feeding Able to feed self 07/31/2025 8:00 AM EDT Ramy Huerta RN * IBW/kg (Calculated) Answer Date of Assessment Author 47.8 07/30/2025 7:11 PM EDT Giovanny Joya RN * Adult Low Range Vt 6mL/kg Answer Date of Assessment Author 286.8 07/30/2025 7:11 PM EDT Toan, Giovanny Lazcano RN * Adult Moderate Range Vt 8mL/kg Answer Date of Assessment Author 382.4 07/30/2025 7:11 PM EDT Giovanny Joya RN * Adult High Range Vt 10mL/kg Answer Date of Assessment Author 478 07/30/2025 7:11 PM EDT Giovanny Joya RN * Patient Belongings Sent Home Question Answer Date of Assessment Author Belongings Sent Home None 07/30/2025 8:05 PM E Svetlana Sky * Patient Belongings Sent to Safe/Security Question Answer Date of Assessment Author Belongings Sent to Safe/Security None 07/30/20 8:05 PM EDT Svetlana Stanley * PVS Additional Assessments Answer Date of Assessment Author LLE;RLE 07/31/2025 12:30 AM EDT Jina Pina RN * Integumentary Question Answer Date of Assessment Author 4 Eyes Skin Assessment Completed Yes 07/31/20 12:00 PM EDT Ramy Huerta RN Integumentary (WDL) WDL 07/31/2025 12:00 PM E Ramy Mckinley RN * Pain Score Answer Date of Assessment Author 6 07/31/2025 11:55 AM EDT Ramy Huerta RN * Confusion Assessment Method (CAM) Question Answer Date of Assessment Author Acute Onset and Fluctuating Course (1A) No 07/31/2025 8:00 AM EDT Ramy Huerta R N * Feature 3: Altered Level of Consciousness Answer Date of Assessment Author Negative 07/31/2025 10:56 AM EDT Libia Stanley * Urine Output/Assessment Question Answer Date of Assessment Author Urine Color Unable to assess 07/31/2025 12:30 PM EDT Ramy Huerta RN Unmeasured Urine Occurrence 1 07/31/2025 12:30 PM EDT Ramy Huerta RN Urinary Incontinence No 07/31/2025 12:30 PM EDT Ramy Huerta RN Urine Amount Unable to assess 07/31/2025 12:30 PM EDT Ramy Huerta RN * Stool Output/Assessment Question Answer Date of Assessment Author Unmeasured Stool Occurrence (hourly total) 0 07/31/2025 3:00 PM EDT Ramy Huerta R N * Fall Risk Calculated Score Answer Date of Assessment Author Aminata Thompson 07/31/2025 8:00 AM EDT Ramy Huerta RN * Patient Specific Goals Question Answer Date of Assessment Author Patient/Family-Specific Goals (Include Timeframe) Patient will remain free from falls and injuries during dayshift today 07/31/2025 8:00 AM EDT Ramy Huerta RN Individualized Care Needs Safety 2024 8:00 AM EDT Ramy Huerta RN Anxieties, Fears or Concerns None stated at the moment 07/31/2025 8:00 AM EDT Ramy Huerta RN * Delirium Assessment Question Answer Date of Assessment Author Delirium Scale Used Confusion Assessment Method 07/31/2025 8:00 AM EDT Ramy Huerta RN * Pain Assessment Answer Date of Assessment Author 0-10 (Adult DVPRS/Peds 0-10) 07/31/2025 11:55 AM EDT Ramy Huerta RN * [place] Coma Scale Numeric Answer Date of Assessment Author 15 07/31/2025 12:00 PM EDT Ramy Huerta RN * Elevate heels task - custom formula Answer Date of Assessment Author 1 07/31/2025 8:00 AM EDT Ramy Huerta RN * Neurological Question Answer Date of Assessment Author Neuro Pertinent Negatives Alert and oriented x 4;Speech clear 07/31/2025 12:30 AM EDT Jina Reno RN * Gastrointestinal Question Answer Date of Assessment Author Gastrointestinal Pertinent Negatives Bowel sounds x 4;Soft/nontender/n ondistended 07/31/2025 12:30 AM EDT Jina Reno RN Gastrointestinal (WDL) WDL 12:30 AM EDT Jina Reno RN * Skin Color/Condition Question Answer Date of Assessment Author Skin Pertinent Negatives Intact;Warm;Dry 07/31/2025 12 :30 AM EDT Jina Pina RN Skin Color/Condition (WDL) WDL 07/31/2025 12:30 AM EDT Jina Reno RN * Psychosocial Question Answer Date of Assessment Author Psychosocial (WDL) WDL 07/31/2025 12:30 AM ED T Jina Reno RN * Cardiac Question Answer Date of Assessment Author Cardiac Pertinent Negatives S1 S2 07/31/2025 12 :30 AM EDT Jina Reno RN Cardiac ([facility]) WD 07/31/2025 12:30 AM EDT Jina Gillespie RN * Genitourinary Question Answer Date of Assessment Author Genitourinary Pertinent Negatives Continent 07/31/2025 12:30 AM EDT Jina Reno RN Genitourinary ([facility]) [facility] 07/31/2025 12:30 AM E DT Jina Reno RN * Respiratory Question Answer Date of Assessment Author Respiratory Pertinent Negatives Lungs clear to auscultation;Respir ations regular/unlabored 07/31/2025 12:30 AM EDT Jina Reno RN * Musculoskeletal Question Answer Date of Assessment Author RLE Pain with movement;Full movement;Other (Comment);No injury/trauma 07/30/2025 8:06 PM EDT Svetlana Stanley Musculoskeletal Pertinent Negatives Moves all extremities 07/31/2025 12:30 AM EDT Jina Reno RN Musculoskeletal ([facility]) [facility] 07/31/2025 12:30 AM EDT Jina Reno RN * Cough Question Answer Date of Assessment Author Cough Present No 07/31/2025 12:30 AM EDT Jina Gillespie RN * Vitals Timer Question Answer Date of Assessment Author Update Vitals Alert Interval 240 07/30/2025 1 1:35 PM EDT Svetlana Stanley Restart Vitals Timer Yes 07/31/2025 12:50 PM EDT Sabiha Retana Restart Vitals Timer Yes 07/31/2025 12:50 PM EDT Sabiha Retana * Hourly Rounding Question Answer Date of Assessment Author Activity Assistance One person assist 07/31/2025 12:00 PM EDT Ramy Huerta RN Repositioned Turns self;Prompted independent patient to reposition 07/31/2025 12:00 PM EDT Ramy Huerta RN Head of Bed Elevated HOB 30 07/31/2025 12:00 PM EDT Ramy Huerta RN Toileting Offered and refused 07/31/2025 1 2:00 PM EDT Ramy Huerta RN Call Light Oriented to call light;Call light present and within reach 07/31/2025 12:00 PM EDT Ramy Huerta RN Rest/ Sleep No problem identified 07/31/2025 12:00 PM EDT Ramy Huerta RN Rest/ Sleep Enhancement Care clustered t o minimize awakenings 07/31/2025 6:27 AM EDT Jina Reno RN Completed Hourly Rounding Yes 07/31/2025 12:00 PM EDT Ramy Huerta RN Plan of Care Reviewed With Patient 07/31/2025 12:00 PM EDT Ramy Huerta RN * Standardized Assessments Question Answer Date of Assessment Author Standardized Assessments AMPA 6-Clicks Mobility Assessment 07/31/2025 10:37 AM EDT Alejandrina Gonzalez * Ampa 6-Click Daily Activities Question Answer Date of Assessment Author Help from Other: Don/Doff Re gular Lower Body Clothings 4 07/31/2025 10:56 AM MART Susie Stanley Help From Other: Bathing 3 07/31/2025 10:56 AM Susie Du Help From Other: Toileting 4 07/31/2025 10: 56 AM Susie Du Help From Other: Don/Doff Up per Body Clothings 4 07/31/2025 10:56 AM Susie Du Help From Other: Grooming 4 07/31/2025 10:5 6 AM EDT Susie Stanley Help From Other: Eating Meals 4 07/31/2025 10:56 AM EDT Susie Stanley Ampa 6 Click - Daily Activities Score 23 10:56 AM EDT Susie Stanley * Standardized Tests Question Answer Date of Assessment Author Standardized Tests AMPA 6-Clicks 07/31/2025 10:56 AM EDT Susie Stanley * Elopement Risk Screen Question Answer Date of Assessment Author Does the patient exhibit any of the following behaviors? No 07/31/2025 8:00 AM EDT Ramy Huerta RN * Manual Muscle Testing - LLE Question Answer Date of Assessment Author Manual Muscle Testing [facility] 07/31/2025 10:56 AM Susie Du * Manual Muscle Testing - RUE Question Answer Date of Assessment Author Manual Muscle Testing - RUE [facility] 07/31/2025 10 :56 AM Susie Du * Manual Muscle Testing - LUE Question Answer Date of Assessment Author Manual Muscle Testing - LUE [facility] 07/31/2025 10 :56 AM Susie Du * Dynamic Sitting Balance Question Answer Date of Assessment Author Level of Assistance Independent 07/31/2025 10:56 AM E Susie Sky * Cognition Question Answer Date of Assessment Author Mood/Behavior Alert 07/31/2025 10:56 AM Susie Jimenez Orientation Level Oriented X4 07/31/2025 10:56 AM Susie Du Overall Cognitive Status WF 07/31/2025 10:56 AM Susie Du Arousal/Alertness Appropriate response s to stimuli 07/31/2025 10:56 AM Susie Du Single Step Commands Consistently 07/31/2025 10:56 AM Susie Du Multi-Step Commands Consistently 07/31/2025 10:56 AM Susie Hadley * Static Sitting Balance Question Answer Date of Assessment Author Static Sitting-Level of Assistance Independent 2024 10:56 AM Susie Du * Static Standing Balance Question Answer Date of Assessment Author Static Standing-Level of Assistance Supervision 07/31/2025 10:56 AM Susie Du Static Standing-Balance Support Right upper extremity support;Left upper extremity support 07/31/2025 10:56 AM Susie Du * OT Assessment Question Answer Date of Assessment Author OT Assessment Results Impaired IADL performance;Impaired functional mobility 07/31/2025 10:56 AM Susie Du Occupational Profile Brief history inclu marielos review of medical/therapy records relating to presenting problem 07/31/2025 10:56 AM Susie Du Clinical Decision Making Low 025 10:56 AM Susie Du Overall Eval complexity Low 07/31/20 25 10:56 AM Susie Du Performance Deficits Instrumental activi ties of daily living (IADLs) 07/31/2025 10:56 AM EDT Jaden Susie * C-SSRS (Frequent Screener) Question Answer Date of Assessment Author Is patient awake, alert, and able/willing to answer questions appropriately? Yes 07/31/2025 8:00 AM EDT Ramy Huerta R N * AMPAC 6-Clicks Mobility Assessment Question Answer Date of Assessment Author Difficulty patient has turni ng over in bed (including adjusting bedclothes, sheets, and blankets)? 4 07/31/2025 10:37 AM EDT Alejandrina Patel Difficulty patient has sitti ng down on and standing up from a chair with arms (wheelchair, bedside commode, etc.)? 4 07/31/2025 10:37 AM MART Alejandrina Gonzalez Difficulty patient has movin g from lying on back to sitting on the side of the bed? 4 07/31/2025 10:37 AM EDT Jeff Gonzalez How much help does the patie nt need moving to and from a bed to a chair (including a wheelchair)? 4 07/31/2025 10:37 AM EDT Alejandrina Nance How much help does the patie nt need to walk in hospital room? 4 07/31/2025 10:37 AM EDT Alejandrina Pena How much help does the patie nt need climbing 3-5 steps with a railing? 3 07/31/2025 10:37 AM MART Jeff Gonzalez AMPAC 6-Clicks Mobility Asse ssment Total 23 07/31/2025 10:37 AM EDT Jeff Gonzalez * PT Therapeutic Procedures Time Entry Question Answer Date of Assessment Author Therapeutic Activity Time Entry 13 10:37 AM MART Alejandrina Gonzalez * HEENT Question Answer Date of Assessment Author HEENT (WDL) X 07/31/2025 12:00 PM EDT Ramy Edmonds RN R Ear Mildly impaired hearing 07/31/2025 12:00 PM EDT Ramy Huerta RN L Ear Mildly impaired hearing 07/31/2025 12:00 PM EDT Ramy Huerta RN * Pain Management Interventions Answer Date of Assessment Author medication (see MAR) 07/31/2025 11:55 AM EDT Ramy Ayala, RN * Safety Interventions Question Answer Date of Assessment Author Safety Precautions/Falls Reduction assistive device/personal items within reach;family at bedside;nonskid shoes/slippers when out of bed;toileting offered 07/30/2025 8:05 PM EDT Svetlana Stanley All Alarms none present 07/30/2025 8:05 PM EDT Svetlana Stanley * General Emergency Care CPG Interventions Question Answer Date of Assessment Author Coping Interventions care explained to patient/family prior to performing;questions answered 07/30/2025 8:05 PM EDT Svetlana Stanley General Care Management family presence promoted;medication response monitored;monitored for physiologic status changes;pain relief monitored;positioned for comfort 07/30/2025 8:05 PM EDT Svetlana Stanley * Precautions Question Answer Date of Assessment Author Medical Precautions Fall precautions 07/31/2025 10:56 AM EDT Susie Stanley * Date of OT Session Question Answer Date of Assessment Author OT Initials SKP 07/31/2025 10:56 AM EDT Susie Myers * Participants in Care Question Answer Date of Assessment Author Cardiac Tech N/A 07/31/2025 10:56 AM Susie Samson Family/Caregiver Present N 07/31/2025 10:56 AM Susie Du * Presentation Question Answer Date of Assessment Author Pre-Session Supine;Head of bed elevated;Lines intact 07/31/2025 10:56 AM Susie Du Post-Session Supine;Head of bed elevated;Lines intact;RN notified;Call light in reach 07/31/2025 10:56 AM Susie Du Pre-Session Comments RN agreeable to evaluation. 07/31/2025 10:56 AM Susie Du Post-Session Comments Pt positioned for comfort in the bed all needs met. 07/31/2025 10:56 AM EDSusie Irving * Delirium Assessment Question Answer Date of Assessment Author RASS 0 07/31/2025 10:56 AM EDT Susie Myers * JHHLM Question Answer Date of Assessment Author JACK HLM Daily Mobility Score 7 07/31/2025 10 :56 AM EDSusie Irving * Sensation Question Answer Date of Assessment Author Light Touch: Right Upper Extremity Intact 2024 10:56 AM EDSusie Irving * Sensation Question Answer Date of Assessment Author Light Touch: Left Upper Extremity Intact 025 10:56 AM Susie Du * Sensation Question Answer Date of Assessment Author Light Touch: Right Lower Extremity Moderate impairment 07/31/2025 10:56 AM EDSusie Irving * Sensation Question Answer Date of Assessment Author Light Touch: Left Lower Extremity Intact 025 10:56 AM EDSusie Irving * Bed Mobility Exam: Scooting/Bridging Question Answer Date of Assessment Author Level of [place] Stand-by assist 07/31/2025 10:56 AM Susie Du Physical/Nonphysical Assist Verbal Cues 07/31/2025 10 :56 AM EDSusie Irving * Bed Mobility Exam: Supine to Sit Question Answer Date of Assessment Author Level of [place] Stand-by assist 07/31/2025 10:56 AM Susie Du Physical/Nonphysical Assist HOB elevated ;Minimal cues 07/31/2025 10:56 AM EDSusie Irving * Bed Mobility Exam: Sit to Supine Question Answer Date of Assessment Author Level of [place] Stand-by assist 07/31/2025 10:56 AM Susie Du Physical/Nonphysical Assist HOB elevated ;Minimal cues 07/31/2025 10:56 AM Susie Du * Transfer Exam: Sit to stand Question Answer Date of Assessment Author Level of [place] Stand-by assist 07/31/2025 10:56 AM Susie Du Physical/Nonphysical Assist Verbal Cues 07/31/2025 10 :56 AM EDSusie Irving Assistive Device Cane, straight 07/31/2025 10:56 AM ED T Susie Stanley * Transfer Exam: Stand to Sit Question Answer Date of Assessment Author Level of [place] Stand-by assist 07/31/2025 10:56 AM Susie Du Physical/Nonphysical Assist Verbal Cues 07/31/2025 10 :56 AM EDSusie Irving Assistive Device Walker, rolling 07/31/2025 10:56 AM E Susie Sky * Toilet Transfer Question Answer Date of Assessment Author Assistive Device Walker, rolling;Grab bar 07/31/2025 10:37 AM Alejandrina Silva Type of Transfer Ambulation;To toilet 07/31/2025 10:56 AM Susie Du Level of [place] Stand-by assist 07/31/2025 10:37 AM Alejandrina Silva Physical/Nonphysical Assist Verbal Cues 07/31/2025 10:37 AM Alejandrina Silva * Postural Appearance Question Answer Date of Assessment Author Posture WFL 07/31/2025 10:56 AM EDT Susie Myers * Interventions Question Answer Date of Assessment Author Self-Care Interventions 07/31/2025 10:56 AM Susie Du * Lower Extremity Dressing Question Answer Date of Assessment Author LE Dressing Interventions Pt utilized juliann lockett sitting to don footwear at eob with SBA prior to out of bed mobility. 07/31/2025 10:56 AM Susie Du LE Dressing Where Assessed Edge of bed 07/31/2025 10: 56 AM Susie Du Sock Level of Assistance Setup 07/31/2025 10:56 AM Susie Du Shoe Level of Assistance Setup 07/31/2025 10:56 AM Susie Du * Toileting Question Answer Date of Assessment Author Toileting Interventions Pt ambulated to the commode and transferred with SBA and min verbal cues for rolling walker positioning. She was able to complete mona hygeine and clothing management sitting/standing at the commode with SBA without loss of balance. 07/31/2025 10:56 AM Susie Du Where Assessed Toilet 07/31/2025 10:56 AM Susie Du Toileting Level of Assistance SBA 07/31/2025 10:56 AM Susie Du * General Question Answer Date of Assessment Author Date of PT Session [id number] 07/31/2025 10:37 AM ED T Alejandrina Gonzalez Patient/Family Goals Statement To return home 07/31/2025 10:37 AM Jeff Silva * Plan Question Answer Date of Assessment Author Discharge Recommendation Home with assistance;Outpatient PT 07/31/2025 10:37 AM Alejandrina Silva Equipment Recommended Patient owns appropriate equipment 07/31/2025 10:37 AM EDT Alejandrina Gonzalez PT - OK to Discharge Yes 07/31/2025 10:37 AM EDT Alejandrina Gonzalez * PT Assessment Question Answer Date of Assessment Author History Profile 1 - 2 personal facto rs and/or comorbidities 07/31/2025 10:37 AM EDT Alejandrina Gonzalez Clinical Presentation Stable and/or uncomplicated characteristics 07/31/2025 10:37 AM EDT Alejandrina Gonzalez Clinical Decision Making Low complexity 07/31/2025 10:37 AM EDT Alejandrina Gonzalez * Ambulation Question Answer Date of Assessment Author Distance 40' with SPC transitioning to RW for additonal 40' to bathroom + 80' 07/31/2025 10:37 AM EDT Alejandrina Gonzalez Device Single point cane;Ro lling walker 07/31/2025 10:37 AM EDT Alejandrina Gonzalez Ambulation Comments Patient demonstrates with increased lateral sway, decreased juliann, and antalgic gait with SPC to RUE; PT provided RW and noted with increased ujliann, improved stability, and reports of decreased pain with BUE support. PT provided verbal cues for safe AD proximity and pacing. 07/31/2025 10:37 AM EDT Alejandrina Gonzalez * JACK HLM Score Question Answer Date of Assessment Author JACK HLZuleyka Daily Mobility Goal 7 07/31/2025 8:0 0 AM EDT Ramy Huerta, EFE * Pressure Injury Prevention (PIP) Interventions Question Answer Date of Assessment Author Pressure Reducing Devices Pillow 07/31/2025 8:00 AM EDT Ramy Huerta, EFE Bed Type Stretcher 07/31/2025 12:00 PM EDT Ramy Edmonds, EFE * Vital Signs Question Answer Date of Assessment Author BP 135/78 07/31/2025 12:50 PM EDT Sabiha Brenner Temp 97.9 07/31/2025 12:50 PM EDT Sabiha Brenner Temp src Oral 07/31/2025 12:50 PM EDT Sabiha Brenner Pulse 75 07/31/2025 12:50 PM EDT Sabiha Brenner Resp 18 07/31/2025 12:50 PM EDT Sabiha Brenner Heart Rate Source Monitor 07/31/2025 12:50 PM EDT Sabiha Retana BP Location Right arm 07/31/2025 12:50 PM EDT Sabiha Brenner BP Method Automatic 07/31/2025 12:50 PM EDT Sabiha Brenner Cardiac Rhythm NSR 07/31/2025 8:12 AM EDT Chris Sabiha jacinto MAP (mmHg) 97 07/31/2025 12:50 PM EDT Sabiha Brenner Patient Position Lying 07/31/2025 12:50 PM EDT Sabiha Retana * Oxygen Therapy Question Answer Date of Assessment Author SpO2 94 07/31/2025 12:50 PM EDT Sabiha Brenner Pulse Oximetry Type Intermittent 07/31/2025 12:50 PM E DT Sabiha Retana Patient Activity During SpO2 Measurement At rest 07/31/2025 12:50 PM EDT Jaja Retana Oxygen Therapy None 07/31/2025 12:50 PM EDT Sabiha Parikh Oximetry Probe Site Location Right Digit 07/31/2025 12:50 PM EDT Jaja Retana * Gastrointestinal Question Answer Date of Assessment Author Gastrointestinal (WDL) WDL 07/31/2025 12:00 P M EDT Ramy Huerta RN * RLE Neurovascular Assessment Question Answer Date of Assessment Author RLMervat Sensation Pain;Tingling;Numbne s s 07/31/2025 12:00 PM EDT Ramy Huerta RN RLE Capillary Refill Less than/equal to 2 seconds 07/31/2025 12:00 PM EDT Ramy Huerta RN R Pedal Pulse +2 07/31/2025 12:00 PM EDT Ramy Ayala RN * LLE Neurovascular Assessment Question Answer Date of Assessment Author CECY Sensation Tingling;Numbness 07/31/2025 12:00 PM ED T Ramy Huerta RN LLE Capillary Refill Less than/equal to 2 seconds 07/31/2025 12:00 PM EDT Ramy Huerta RN L Pedal Pulse +2 07/31/2025 12:00 PM EDT Ramy Ayala RN * Musculoskeletal Details Question Answer Date of Assessment Author Lower Back Pain with movement 07/31/2025 12:00 PM ED T Ramy Huerta RN * Musculoskeletal Question Answer Date of Assessment Author Musculoskeletal (WDL) X 07/31/2025 12:00 PM EDT Ramy Huerta RN * Psychosocial Question Answer Date of Assessment Author Psychosocial (WDL) WDL 07/31/2025 12:00 PM ED T Ramy Huerta RN * Coates Fall Risk Question Answer Date of Assessment Author History of Falling, Immediat e or Within 3 Months 0 07/31/2025 8:00 AM EDT Ramy Huerta R N Secondary Diagnosis 15 07/31/2025 8:00 AM ED T Ramy Huerta RN Ambulatory Aid 0 07/31/2025 8:00 AM EDT Ramy Ayala RN Intravenous Therapy/Heparin Lock 20 07/31/20 8:00 AM EDT Ramy Huerta RN Gait/Transferring 0 07/31/2025 8:00 AM EDT Ramy Huerta RN Mental Status 0 07/31/2025 8:00 AM EDT Ramy Edmonds RN Coates Fall Risk Score 35 07/31/2025 8:00 AM EDT Ramy Huerta RN * Alex Scale Question Answer Date of Assessment Author Sensory Perceptions 4 07/31/2025 8:00 AM ED T Ramy Huerta RN Moisture 4 07/31/2025 8:00 AM EDT Ramy Lynne RN Activity 3 07/31/2025 8:00 AM EDT Ramy Lynne RN Mobility 3 07/31/2025 8:00 AM EDT Ramy Lynne RN Nutrition 3 07/31/2025 8:00 AM EDT Ramy Lynne RN Friction and Shear 3 07/31/2025 8:00 AM EDT Ramy Huerta RN Alex Scale Score 20 07/31/2025 8:00 AM EDT Ramy Huerta RN * BSA (Calculated - sq m) Answer Date of Assessment Author 1.81 07/30/2025 7:11 PM EDT Giovanny Joya RN * BMI (Calculated) Answer Date of Assessment Author 31.57 07/30/2025 7:11 PM EDT Giovanny Jyoa RN * Cardiac Question Answer Date of Assessment Author Cardiac ([facility] 07/31/2025 12:00 PM EDT Ramy Ayala RN * Respiratory Question Answer Date of Assessment Author Respiratory ([facility]) [facility] 07/31/2025 12:00 PM EDT Ramy Huerta RN * RLE ROM Assessment Question Answer Date of Assessment Author RLE Assessment [facility] 07/31/2025 10:56 AM EDT Susie Ziegler * LLE ROM Assessment Question Answer Date of Assessment Author LLE Assessment [facility] 07/31/2025 10:56 AM EDT Pr Susie rivas * Vision - Basic Assessment Question Answer Date of Assessment Author Baseline Vision Glasses distance 07/31/2025 10:56 AM E DT Susie Stanley * Genitourinary Question Answer Date of Assessment Author Genitourinary ([facility]) [facility] 07/31/2025 12:00 PM E Ramy Mckinley RN * Neurological Question Answer Date of Assessment Author Level of Consciousness Alert 07/31/2025 12:00 P M EDT Ramy Huerta RN Orientation Level Oriented X4 07/31/2025 12:00 PM EDT Ramy Huerta RN Cognition Follows commands 07/31/2025 12:00 PM EDT Ramy Huerta RN Neuro ([facility]) X 07/31/2025 12:00 PM EDT Ramy Edmonds RN * Height and Weight Question Answer Date of Assessment Author Height 61 07/30/2025 7:11 PM EDT Sharon Joya RN Weight 2672 07/30/2025 7:11 PM EDT Sharon Joya RN * Prior Function Question Answer Date of Assessment Author Level of Mobility Ambulatory- community 07/31/2025 10: 56 AM EDT Susie Stanley Mobility [place] Independent gait w ith device 07/31/2025 10:56 AM EDT Susie Stanley History of Falls No 07/31/2025 10:56 AM EDT Susie Stanley ADL Performance Needs assistance 07/31/2025 10:56 AM E DT JadenSusie Receives Help From No assist required chinyere lunar to admission 07/31/2025 10:56 AM EDT Susie Stanley Bathing Needs device 07/31/2025 10:56 AM EDT Pric e, Susie Upper Body Dressing Independent 07/31/2025 10:56 AM E DT StanleySusie Lower Body Dressing Independent 07/31/2025 10:56 AM E DT Stanley, Susie Grooming Independent 07/31/2025 10:56 AM EDT Pric e, Susie Toileting Independent 07/31/2025 10:56 AM EDT Pric e, Susie Eating Independent 07/31/2025 10:56 AM EDT Pric e, Susie Home Management Skills Independent 07/31/2025 10:56 A M EDT Susie Stanley * RUE ROM Assessment Question Answer Date of Assessment Author ERIS Assessment [facility] 07/31/2025 10:56 AM EDT Susie Ziegler * LUE ROM Assessment Question Answer Date of Assessment Author HOMA Assessment [facility] 07/31/2025 10:56 AM EDT Susie Ziegler * Safe Environment Question Answer Date of Assessment Author 37-Pin Connection [Bed and Wall] Yes 07/31/2025 8:00 AM EDT Ramy Huerta R N Arm Bands On ID 07/31/2025 8:00 AM EDT Ramy Lynne RN Side Rails/Bed Safety 2/2 07/31/2025 8:00 AM EDT Ramy Huerta RN NonSkid Footwear On;Patient in bed 07/31/2025 8:00 AM EDT Ramy Huerta RN The Patient's Environment is Safe Yes 07/31/2025 8:00 AM EDT Ramy Huerta R N Head of Bed Angle 30 07/31/2025 8:00 AM EDT Ramy Huerta RN Bed Foot Left Rail Up State Yes 07/31/2025 8:00 AM EDT Ramy Huerta R N Bed Head Right Rail Up State Yes 07/31/2025 8:00 AM EDT Ramy Huerta R N Bed Head Left Rail Up State Yes 07/31/2025 8:00 AM EDT Ramy Huerta R N Bed Foot Right Rail Up State Yes 07/31/2025 8:00 AM EDT Ramy Huerta R N Bed Exit System Activate Status Yes 07/31/2025 8:00 AM EDRamy Wong R N Bed Brake State Yes 07/31/2025 8:00 AM EDT Ramy Godinez RN Bed Low Height State Yes 07/31/2025 8:00 AM E Ramy Mckinley RN Chair Exit System Activate Status Yes 07/31/2025 8:00 AM Ramy De La Vega R N * Fall Risk Interventions Question Answer Date of Assessment Author Enhanced Safety Measures education provided;family to remain at bedside;room near unit station 07/31/2025 8:00 AM Ramy De La Vega RN Toilet Every 2 Hours-In Advance of Need Yes 07/31/2025 8:00 AM Ramy De La Vega R N Hourly Visual Checks In bed 07/31/2025 8:00 AM Ramy Gambino RN Room Door Open Deferred to promote rest 07/31/2025 8:00 AM Ramy De La Vega RN Gait Belt Used For Transfers Not applicable 07/31/2025 8:00 AM Ramy De La Vega R N Fall Bundle Components Call light within reach;Personal belongings within reach;Overbed table within reach;Bed in lowest position;Bed wheels locked;Non-skid footwear on if up in chair or ambulating;Staff to remain with patient during ambulation and tranfers 07/31/2025 8:00 AM Ramy De La Vega RN * Mobility Question Answer Date of Assessment Author Range of Motion active ROM (range of motion) encouraged 07/31/2025 8:00 AM Ramy De La Vega RN Activity Management activity adjusted pe r tolerance 07/31/2025 8:00 AM Ramy De La Vega RN Body Position turned 07/31/2025 8:00 AM Ramy De La Vega RN VTE Prevention/Management bilateral;lower extremity;SCDs (sequential compression devices) off;education provided 07/31/2025 12:00 PM Ramy De La Vega RN Head of Bed (HOB) Positioning HOB elevated 07/31/2025 8:00 AM Ramy De La Vega RN Heels/Feet Foot of bed elevated;Heels elevated off bed 07/31/2025 8:00 AM Ramy De La Vega RN Positioning Frequency Able to turn self 07/31/2025 8:0 0 AM Ramy De La Vega RN * Hygiene Question Answer Date of Assessment Author Oral Care mouth moisturizer 07/31/2025 8:00 AM Ramy De La Vega RN Oral Care (Yes/No) Yes 07/31/2025 8:00 AM Ramy De La Vega RN * Precautions Question Answer Date of Assessment Author Isolation Precautions protective 07/31/2025 8:00 AM Ramy De La Vega RN Precautions Environmental surveillance 07/31/2025 8:00 AM Ramy De La Vega RN * Comfort and Environment Interventions Question Answer Date of Assessment Author Comfort Repositioned 07/31/2025 8:00 AM Ramy Suresh RN * Safety Equipment at Bedside Question Answer Date of Assessment Author Standard Bedside Safety Ambu bags in hallway;Suction available, setup and working;Oxygen available and working 07/31/2025 8:00 AM Ramy De La Vega RN Additional Bedside Safety Bed in locked and low position;Clutter free environment 07/31/2025 8:00 AM Ramy De La Vega RN * Hourly Rounding Question Answer Date of Assessment Author Hourly Rounding Complete Per Guideline Yes 07/31/2025 12:00 PM Ramy De La Vega RN * Patient Violence Risk Assessment Question Answer Date of Assessment Author History of Violence: In the past 12 hours has the PATIENT exhibited any of the following? None 07/31/2025 8:00 AM Ramy De La Vega RN Potential for Violence: In the past 12 hours has the PATIENT exhibited any of the following? None 07/31/2025 8:00 AM Ramy De La Vega RN Risk No identified risk 07/31/2025 8:00 AM EDT Ramy Huerta RN History of Violence: In the past 12 hours has a PARTNER IN CARE of the patient exhibited any of the following? None 07/31/2025 8:00 AM EDT Ramy Huerta R N * Restart Vitals Timer Answer Date of Assessment Author Yes 07/31/2025 12:50 PM EDT Sabiha Retana * Grooming Question Answer Date of Assessment Author Grooming Interventions Pt completed hand hygeine standing at the sink with min verbal cues for rolling walker positioning and SBA. 07/31/2025 10:56 AM Susie Du Grooming Where Assessed Standing sinkside 2024 10:56 AM Susie Du Grooming Level of Assistance SBA;Minimal verbal cues 07/31/2025 10:56 AM Susie Du * Dynamic Standing Balance Question Answer Date of Assessment Author Dynamic Standing Level of Assistance Standby assist 07/31/2025 10:56 AM Susie Du Dynamic Standing-Balance Support Left upper extremity support;Right upper extremity support 07/31/2025 10:56 AM Susie Du Dynamic Standing-Balance Lateral weight shifts;Anterior/Posteri or weight shifts 07/31/2025 10:56 AM Susie Du * General Question Answer Date of Assessment Author Date of OT Session [id number] 07/31/2025 10:56 AM Susie Long * Home Living Question Answer Date of Assessment Author Home Type House 07/31/2025 10:56 AM Susie Samson Number of Stairs 1 07/31/2025 10:56 AM Susie Du Bathroom: Tub/Shower Tub/Shower combo;Sh ower chair;Handheld shower head;Grab bars 07/31/2025 10:56 AM Susie Du Bathroom: Toilet Tall 07/31/2025 10:56 AM Susie Du Bathroom: Accessibility Accessible via walker 07/31/20 10:56 AM Susie Du Home Living Comments Spouse works during the day; family lives next door and can assist if needed. Patient has not driven since surgery 07/31/2025 10:56 AM EDT Susie Stanley Home Layout Stairs to enter with rails;One level 07/31/2025 10:56 AM EDT Susie Stanley Home Adaptive Equipment Cane;Rolling walker;shower chair 07/31/2025 10:56 AM EDT Susie Stanley Lives With Spouse 07/31/2025 10:56 AM EDT Markus Susie boyd * Date of PT Session Question Answer Date of Assessment Author PT Initials KIR 07/31/2025 10:37 AM EDT Alejandrina Nance * Calculated C-SSRS Risk Score (Lifetime/Recent) Answer Date of Assessment Author No Risk Indicated 07/30/2025 8:06 PM EDT Svetlana Stanley * [place] Coma Scale Question Answer Date of Assessment Author Best Eye Response Spontaneous 07/31/2025 12:00 PM EDT Ramy Huerta RN Best Verbal Response Oriented 07/31/2025 12:00 PM EDT Ramy Huerta RN Best Motor Response Follows commands 07/31/2025 12:00 PM EDT Ramy Huerta RN [place] Coma Scale Score 15 07/31/2025 12:00 PM EDT Ramy Huerta RN * Learning Assessment Question Answer Date of Assessment Author Education Level High school 07/30/2025 8:05 PM EDT Svetlana Ziegler Factors that Impact Ability to Learn None 07/08 8:05 PM EDT Svetlana Stanley Cultural Considerations None 07/30/2025 8:05 P M EDT Svetlana Stanley Anabaptism Considerations None 07/30/2025 8:05 PM EDT Svetlana Stanley * KINDER 1 Fall Risk Factor Assessment Question Answer Date of Assessment Author Presented to ED because of fall 0 07/31/2025 12:30 AM EDT Jina Reno RN Age > 70 0 07/31/2025 12:30 AM EDT Jina Reno RN Intoxicated with alcohol or substance confusion 0 07/31/2025 12:30 AM EDT Jina Reno RN Ambulates or transfers with assistive devices or assist 0 07/31/2025 12:30 AM EDT Michi-McNemar, Jina L, RN Unable to ambulate or transfer 0 07/31/2025 12:30 AM EDT Jina Reno RN Nursing judgement 0 07/31/2025 12: 30 AM EDT Jina Reno RN KINDER 1 Fall Risk Score 0 025 12:30 AM EDT Jina Reno RN High Fall Risk Interventions for Scores 1 and above Bed in lowest position and locked;Call light within reach;Belongings within reach;Following general safety rules;Patient/family told to always call for assistance 07/31/2025 12:30 AM EDT Jina Reno RN * Patient Belongings Placed in Locker Question Answer Date of Assessment Author Clothing Pants;Shirt;Footwear 07/30/2025 8:05 PM E DT Svetlana Stanley Belongings at Bedside Medical equipment;Clothing;Electro erin devices 07/30/2025 8:05 PM EDT Svetlana Stanley Medical Equipment Cane 07/30/2025 8:05 PM EDT Svetlana Stanley * HEENT Question Answer Date of Assessment Author HEENT (WDL) X 07/31/2025 12:59 AM EDT Jina Cardenas RN * [place] Suicide Severity Rating Scale Question Answer Date of Assessment Author 1. Wish to be (Past 1 Month) No 025 8:06 PM EDT Svetlana Stanley 2. Non-Specific Active Suici judy Thoughts (Past 1 Month) No 07/30/2025 8:06 PM EDT Svetlana Stanley 6. Suicidal Behavior (Lifetime) No 8:06 PM EDT Svetlana Stanley * Weight in (lb) to have BMI = 25 Answer Date of Assessment Author 132 07/30/2025 7:11 PM EDT Giovanny Joya RN * Pain Type Answer Date of Assessment Author Acute pain 07/31/2025 11:55 AM EDT Ramy Huerta RN * Pain Assessment Question Answer Date of Assessment Author Pain Location Back;Leg 07/31/2025 8:00 AM EDT Ramy Edmonds RN Pain Orientation Left 07/31/2025 8:00 AM EDT Ramy Killian RN Pain Descriptors Aching 07/31/2025 8:00 AM EDT Ramy Killian RN Pain Frequency Constant/continuous 07/31/2025 8:00 AM EDT Ramy Huerta RN Patient's Stated Pain Goal 4 07/31/2025 8:00 AM EDT Ramy Huerta R N * Nutrition Question Answer Date of Assessment Author Diet Type Regular 07/31/2025 8:00 AM EDT Ramy Lynne RN Feeding Able to feed self 07/31/2025 8:00 AM EDT Ramy Huerta RN * Patient Belongings Sent Home Question Answer Date of Assessment Author Belongings Sent Home None 07/30/2025 8:05 PM E DT Svetlana Stanley * Patient Belongings Sent to Safe/Security Question Answer Date of Assessment Author Belongings Sent to Safe/Security None 07/30/20 8:05 PM EDT Svetlana Stanley * PVS Additional Assessments Answer Date of Assessment Author LLE;RLE 07/31/2025 12:30 AM EDT Jina Pina RN * Integumentary Question Answer Date of Assessment Author 4 Eyes Skin Assessment Completed Yes 07/31/20 12:00 PM EDT Ramy Huerta RN Integumentary (WDL) WDL 07/31/2025 12:00 PM E Ramy Mckinley RN * Pain Score Answer Date of Assessment Author 6 07/31/2025 11:55 AM EDT Ramy Huerta RN * Confusion Assessment Method (CAM) Question Answer Date of Assessment Author Acute Onset and Fluctuating Course (1A) No 07/31/2025 8:00 AM EDT Ramy Huerta R N * Feature 3: Altered Level of Consciousness Answer Date of Assessment Author Negative 07/31/2025 10:56 AM EDT Libia Stanley * Urine Output/Assessment Question Answer Date of Assessment Author Urine Color Unable to assess 07/31/2025 12:30 PM EDT Ramy Huerta RN Urinary Incontinence No 07/31/2025 12:30 PM EDT Ramy Huerta RN * Stool Output/Assessment Question Answer Date of Assessment Author Unmeasured Stool Occurrence (hourly total) 0 07/31/2025 3:00 PM EDT Ramy Huerta R N * Patient Specific Goals Question Answer Date of Assessment Author Patient/Family-Specific Goals (Include Timeframe) Patient will remain free from falls and injuries during dayshift today 07/31/2025 8:00 AM EDT Ramy Huerta RN Individualized Care Needs Safety 07/31/2025 8:00 AM EDT Ramy Huerta RN Anxieties, Fears or Concerns None stated at the moment 07/31/2025 8:00 AM EDT Ramy Huerta RN * Delirium Assessment Question Answer Date of Assessment Author Delirium Scale Used Confusion Assessment Method 07/31/2025 8:00 AM EDT Ramy Huerta RN * Pain Assessment Answer Date of Assessment Author 0-10 (Adult DVPRS/Peds 0-10) 07/31/2025 11:55 AM EDT Ramy Huerta RN * Musculoskeletal Question Answer Date of Assessment Author RLE Pain with movement;F ull movement;Other (Comment);No injury/trauma 07/30/2025 8:06 PM EDT Svetlana Stanley * Hourly Rounding Question Answer Date of Assessment Author Activity Assistance One person assist 07/31/2025 12:00 PM EDT Ramy Huerta RN Repositioned Turns self;Prompted independent patient to reposition 07/31/2025 12:00 PM EDT Ramy Huerta RN Head of Bed Elevated HOB 30 07/31/2025 12:00 PM EDT Ramy Huerta RN Toileting Offered and refused 07/31/2025 1 2:00 PM EDT Ramy Huerta RN Call Light Oriented to call light;Call light present and within reach 07/31/2025 12:00 PM EDT Ramy Huerta RN Rest/ Sleep No problem identified 07/31/2025 12:00 PM EDT Ramy Huerta RN Rest/ Sleep Enhancement Care clustered t o minimize awakenings 07/31/2025 6:27 AM EDT Jina Reno RN Completed Hourly Rounding Yes 07/31/2025 12:00 PM EDT Ramy Huerta RN Plan of Care Reviewed With Patient 07/31/2025 12:00 PM EDT Ramy Huerta EFE * Standardized Assessments Question Answer Date of Assessment Author Standardized Assessments AMPA 6-Clicks Mobility Assessment 07/31/2025 10:37 AM EDT Alejandrina Gonzalez * Ampa 6-Click Daily Activities Question Answer Date of Assessment Author Help from Other: Don/Doff Re gular Lower Body Clothings 4 07/31/2025 10:56 AM Susie Du Help From Other: Bathing 3 07/31/2025 10:56 AM EDSusie Irving Help From Other: Toileting 4 07/31/2025 10: 56 AM EDSusie Irving Help From Other: Don/Doff Up per Body Clothings 4 07/31/2025 10:56 AM Susie Du Help From Other: Grooming 4 07/31/2025 10:5 6 AM Susie Du Help From Other: Eating Meals 4 07/31/2025 10:56 AM Susie Du Ampa 6 Click - Daily Activities Score 23 10:56 AM EDT Susie Stanley * Standardized Tests Question Answer Date of Assessment Author Standardized Tests [facility] 6-Clicks 07/31/2025 10:56 AM EDSusie Irving * Elopement Risk Screen Question Answer Date of Assessment Author Does the patient exhibit any of the following behaviors? No 07/31/2025 8:00 AM EDT Ramy Huerta RN * Manual Muscle Testing - LLE Question Answer Date of Assessment Author Manual Muscle Testing L 07/31/2025 10:56 AM EDSusie Irving * Manual Muscle Testing - RUE Question Answer Date of Assessment Author Manual Muscle Testing - RUE L 07/31/2025 10 :56 AM EDT Susie Stanley * Manual Muscle Testing - LUE Question Answer Date of Assessment Author Manual Muscle Testing - LUE L 07/31/2025 10 :56 AM Susie Du * Dynamic Sitting Balance Question Answer Date of Assessment Author Level of Assistance Independent 07/31/2025 10:56 AM E Susie Sky * Cognition Question Answer Date of Assessment Author Mood/Behavior Alert 07/31/2025 10:56 AM EDT Susie Hammond Orientation Level Oriented X4 07/31/2025 10:56 AM Susie Du Overall Cognitive Status WFL 07/31/2025 10:56 AM Susie Du Arousal/Alertness Appropriate response s to stimuli 07/31/2025 10:56 AM Susie Du Single Step Commands Consistently 07/31/2025 10:56 AM Susie Du Multi-Step Commands Consistently 07/31/2025 10:56 AM E Susie Sky * Static Sitting Balance Question Answer Date of Assessment Author Static Sitting-Level of Assistance Independent 2024 10:56 AM Susie Du * Static Standing Balance Question Answer Date of Assessment Author Static Standing-Level of Assistance Supervision 07/31/2025 10:56 AM Susie Du Static Standing-Balance Support Right upper extremity support;Left upper extremity support 07/31/2025 10:56 AM Susie Du * OT Assessment Question Answer Date of Assessment Author OT Assessment Results Impaired IADL performance;Impaired functional mobility 07/31/2025 10:56 AM Susie Du Occupational Profile Brief history inclu ding review of medical/therapy records relating to presenting problem 07/31/2025 10:56 AM Susie Du Clinical Decision Making Low 025 10:56 AM Susie Du Overall Eval complexity Low 07/31/20 25 10:56 AM Susie Du Performance Deficits Instrumental activi ties of daily living (IADLs) 07/31/2025 10:56 AM Susie Du * C-SSRS (Frequent Screener) Question Answer Date of Assessment Author Is patient awake, alert, and able/willing to answer questions appropriately? Yes 07/31/2025 8:00 AM EDT Ramy Huerta R N * [facility] 6-Clicks Mobility Assessment Question Answer Date of Assessment Author Difficulty patient has turni ng over in bed (including adjusting bedclothes, sheets, and blankets)? 4 07/31/2025 10:37 AM EDT Alejandrina Patel Difficulty patient has sitti ng down on and standing up from a chair with arms (wheelchair, bedside commode, etc.)? 4 07/31/2025 10:37 AM EDT Alejandrina Gonzalez Difficulty patient has movin g from lying on back to sitting on the side of the bed? 4 07/31/2025 10:37 AM EDT Jeff Gonzalez How much help does the patie nt need moving to and from a bed to a chair (including a wheelchair)? 4 07/31/2025 10:37 AM EDT Alejandrina Nance How much help does the patie nt need to walk in hospital room? 4 07/31/2025 10:37 AM EDT Alejandrina Pena How much help does the patie nt need climbing 3-5 steps with a railing? 3 07/31/2025 10:37 AM EDT Jeff Gonzalez AMPAC 6-Clicks Mobility Asse ssment Total 23 07/31/2025 10:37 AM EDT Jeff Gonzalez documented as of this encounter Mental Status * Time Calculation Question Answer Entry Date Author Start Time 78566 07/31/2025 10:56 AM EDSusie Dominguez Stop Time 39860 07/31/2025 10:56 AM EDT Susie Myers Time Calculation (min) 23 07/31/2025 10:56 A M EDT Susie Stanley * OT Therapeutic Procedures Time Entry Question Answer Entry Date Author Self Care/Home Management (A DLs) Time Entry 15 07/31/2025 10:56 AM EDT Susie Stanley * HEENT Question Answer Entry Date Author PARRISH (WDL) X 07/31/2025 12:00 PM EDT Ramy Edmonds RN R Ear Mildly impaired hearing 07/31/2025 12:00 PM EDT Ramy Huerta RN L Ear Mildly impaired hearing 07/31/2025 12:00 PM EDT Ramy Huerta RN * BMI (Calculated) Answer Entry Date Author 31.6 07/30/2025 7:11 PM EDT Giovanny Joya RN * Percent Excess Weight Loss Answer Entry Date Author 0 07/30/2025 7:11 PM EDT Giovanny Joya, RN * Total Weight Change Percent Answer Entry Date Author 2222 07/30/2025 7:11 PM EDT Giovanny Joya, RN * Weight Change Since Preop Answer Entry Date Author 75.73 07/30/2025 7:11 PM EDT Pegg, All doretha Lazcano, RN * Initial Excess Weight Answer Entry Date Author -47.63 07/30/2025 7:11 PM EDT Pegg, All doretha Lazcano, RN * IBW in lbs (Bariatric) Answer Entry Date Author 105 07/30/2025 7:11 PM EDT Pegg, All doretha Lazcano, RN * Weight Change Since Last Visit Answer Entry Date Author 75.73 07/30/2025 7:11 PM EDT Pegg, All doretha Lazcano, RN * IBW in kg (Bariatric) Answer Entry Date Author 47.63 07/30/2025 7:11 PM EDT Pegg, All doretha B, RN * Percent of IBW Answer Entry Date Author 5,609.91 07/30/2025 7:11 PM EDT Pegg, Giovanny Lazcano RN * EBW (kg) Answer Entry Date Author 2,670.65 07/30/2025 7:11 PM EDT Pegg, All doretha Lazcano RN * EBW (lbs) Answer Entry Date Author 2,665.44 07/30/2025 7:11 PM EDT Pegg, All doretha Lazcano RN * Pain Management Interventions Answer Entry Date Author medication (see MAR) 07/31/2025 11:55 AM EDT Ramy Ayala RN * Safety Interventions Question Answer Entry Date Author Safety Precautions/Falls Reduction assistive device/personal items within reach;family at bedside;nonskid shoes/slippers when out of bed;toileting offered 07/30/2025 8:05 PM EDT Svetlana Stanley All Alarms none present 07/30/2025 8:05 PM EDT Svetlana Stanley * General Emergency Care CPG Interventions Question Answer Entry Date Author Coping Interventions care explained to patient/family prior to performing;questions answered 07/30/2025 8:05 PM EDT Svetlana Stanley General Care Management family presence promoted;medication response monitored;monitored for physiologic status changes;pain relief monitored;positioned for comfort 07/30/2025 8:05 PM EDT Svetlana Stanley * Acuity/Destination Question Answer Entry Date Author Triage Complete Triage complete 07/30/2025 7:25 PM EDT Monika Louie RN ED Destination PIT 07/30/2025 7:25 PM EDT Monika Urias, EFE * Weight Change 24 hrs Answer Entry Date Author .907 07/30/2025 7:11 PM EDT Giovanny Joya, EFE * Precautions Question Answer Entry Date Author Medical Precautions Fall precautions 07/31/2025 10:56 AM EDT Susie Stanley * Participants in Care Question Answer Entry Date Author Cardiac Tech N/A 07/31/2025 10:56 AM EDT Susie Myers * Presentation Question Answer Entry Date Author Pre-Session Comments RN agreeable to evaluation. 07/31/2025 10:56 AM EDT Susie Stanley Post-Session Comments Pt positioned for comfort in the bed all needs met. 07/31/2025 10:56 AM EDT Susie Stanley * Delirium Assessment Question Answer Entry Date Author RASS 0 07/31/2025 10:56 AM EDT Susie Myers * JHHLM Question Answer Entry Date Author JACK PEREZ Daily Mobility Score 7 07/31/2025 10 :56 AM EDT Susie Stanley * General Question Answer Entry Date Author Date of PT Session 31625 07/31/2025 10:37 AM ED T Alejandrina Gonzalez * PT Assessment Question Answer Entry Date Author History Profile 1 - 2 personal facto rs and/or comorbidities 07/31/2025 10:37 AM EDT Alejandrina Gonzalez Clinical Presentation Stable and/or unco mplicated characteristics 07/31/2025 10:37 AM EDT Alejandrina Gonzalez Clinical Decision Making Low complexity 025 10:37 AM EDT Alejandrina Gonzalez * HLM Score Question Answer Entry Date Author [facility]ACK [facility] Daily Mobility Goal 7 07/31/2025 8:0 0 AM EDT Ramy Huerta RN * Pressure Injury Prevention (PIP) Interventions Question Answer Entry Date Author Pressure Reducing Devices Pillow 07/31/2025 8:00 AM EDT Ramy Huerta, EFE Bed Type Stretcher 07/31/2025 12:00 PM EDT Ramy Edmonds, EFE * Vital Signs Question Answer Entry Date Author BP 135/78 07/31/2025 12:50 PM EDT Sabiha Brenner Temp 97.9 07/31/2025 12:50 PM EDT Mack ards, Sabiha Deluca Temp src Oral 07/31/2025 12:50 PM EDT Rich ards, Sabiha J Pulse 75 07/31/2025 12:50 PM EDT Rich ards, Sabiha J Resp 18 07/31/2025 12:50 PM EDT Mack ards, Sabiha Deluca Heart Rate Source Monitor 07/31/2025 12:50 PM EDT Sabiha Retana BP Location Right arm 07/31/2025 12:50 PM EDT Mack ards, Sabiha Deluca BP Method Automatic 07/31/2025 12:50 PM EDT Mack ards, Sabiha Deluca Cardiac Rhythm NSR 07/31/2025 8:12 AM EDT Sabiha Camejo MAP (mmHg) 97 07/31/2025 12:50 PM EDT Sabiha Brenner Patient Position Lying 07/31/2025 12:50 PM EDT Sabiha Retana * Oxygen Therapy Question Answer Entry Date Author SpO2 94 07/31/2025 12:50 PM EDT Sabiha Retana Pulse Oximetry Type Intermittent 07/31/2025 1 2:50 PM EDT Sabiha Retana Patient Activity During SpO2 Measurement At rest 07/31/2025 12:50 PM EDT Sabiha Retana Oxygen Therapy None 07/31/2025 12:50 PM EDT Sabiha Retana Oximetry Probe Site Location Right Digit 12:50 PM EDT Sabiha Retana * Gastrointestinal Question Answer Entry Date Author Gastrointestinal (WDL) WDL 07/31/2025 12:00 P M EDT Ramy Huerta RN * RLE Neurovascular Assessment Question Answer Entry Date Author RLE Sensation Pain;Tingling;Numbness 12:00 PM EDT Ramy Huerta RN RLE Capillary Refill Less than/equal to 2 seconds 07/31/2025 12:00 PM EDT Ramy Huerta RN R Pedal Pulse +2 07/31/2025 12:00 PM EDT Ramy Huerta RN * LLE Neurovascular Assessment Question Answer Entry Date Author LLE Sensation Tingling;Numbness 07/31/2025 12: 00 PM EDT Ramy Huerta RN LLE Capillary Refill Less than/equal to 2 seconds 07/31/2025 12:00 PM EDT Ramy Huerta RN L Pedal Pulse +2 07/31/2025 12:00 PM EDT Ramy Huerta RN * Musculoskeletal Details Question Answer Entry Date Author Lower Back Pain with movement 07/31/2025 12:00 PM ED T Ramy Huerta RN * Musculoskeletal Question Answer Entry Date Author Musculoskeletal (WDL) X 07/31/2025 12:00 PM EDT Ramy Huerta RN * Psychosocial Question Answer Entry Date Author Psychosocial (WDL) WDL 07/31/2025 12:00 PM ED T Ramy Huerta RN * Intake Question Answer Entry Date Author [address] 07/31/2025 12:30 PM EDT Ramy Edmonds RN * Coates Fall Risk Question Answer Entry Date Author History of Falling, Immediat e or Within 3 Months 0 07/31/2025 8:00 AM EDT Ramy Huerta R N Secondary Diagnosis 15 07/31/2025 8:00 AM ED T Ramy Huerta RN Ambulatory Aid 0 07/31/2025 8:00 AM EDT Ramy Ayala RN Intravenous Therapy/Heparin Lock 20 07/31/20 8:00 AM EDT Ramy Huerta RN Gait/Transferring 0 07/31/2025 8:00 AM EDT Ramy Huerta RN Mental Status 0 07/31/2025 8:00 AM EDT Ramy Edmonds RN Morse Fall Risk Score 35 07/31/2025 8:00 AM EDT Ramy Huerta RN * Alex Scale Question Answer Entry Date Author Sensory Perceptions 4 07/31/2025 8:00 AM ED T Ramy Huerta RN Moisture 4 07/31/2025 8:00 AM EDT Ramy Lynne RN Activity 3 07/31/2025 8:00 AM EDT Ramy Lynne RN Mobility 3 07/31/2025 8:00 AM EDT Ramy Lynne RN Nutrition 3 07/31/2025 8:00 AM EDT Ramy Lynne RN Friction and Shear 3 07/31/2025 8:00 AM EDT Rmay Huerta RN Alex Scale Score 20 07/31/2025 8:00 AM EDT Ramy Huerta RN * BSA (Calculated - sq m) Answer Entry Date Author 1.81 07/30/2025 7:11 PM EDT Giovanny Joya RN * BMI (Calculated) Answer Entry Date Author 31.57 07/30/2025 7:11 PM EDT Giovanny Joya RN * Cardiac Question Answer Entry Date Author Cardiac (WDL) WDL 07/31/2025 12:00 PM EDT Ramy Ayala RN * Respiratory Question Answer Entry Date Author Respiratory (WDL) WDL 07/31/2025 12:00 PM EDT Ramy Huerta RN * Vision - Basic Assessment Question Answer Entry Date Author Baseline Vision Glasses distance 07/31/2025 10:56 AM E DT Susie Stanley * Genitourinary Question Answer Entry Date Author Genitourinary (WDL) WDL 07/31/2025 12:00 PM E DT Ramy Huerta RN * Neurological Question Answer Entry Date Author Level of Consciousness Alert 07/31/2025 12:00 P M EDT Ramy Huerta RN Orientation Level Oriented X4 07/31/2025 12:00 PM EDT Ramy Huerta RN Cognition Follows commands 07/31/2025 12:00 PM EDT Ramy Huerta RN Neuro (WDL) X 07/31/2025 12:00 PM EDT Ramy Edmonds RN * Height and Weight Question Answer Entry Date Author Height 61 07/30/2025 7:11 PM EDT Sharon Joya RN Weight 2672 07/30/2025 7:11 PM EDT Sharon Joya RN Height Method Stated 07/30/2025 7:11 PM EDT Sharon Joya RN Weight Method Stated 07/30/2025 7:11 PM EDT Sharon Joya RN * Current Blood Glucose Answer Entry Date Author 244 07/31/2025 12:12 PM EDT Ramy Huerta RN * Current Blood Glucose Answer Entry Date Author 296 07/31/2025 4:17 AM EDT Jina Matson RN * Insulin Instructions: Answer Entry Date Author Obtain fingerstick and provi de correction as needed at 0300. 07/31/2025 4:17 AM EDT Jina Reno RN * Safe Environment Question Answer Entry Date Author 37-Pin Connection [Bed and Wall] Yes 07/31/2025 8:00 AM EDT Ramy Huerta RN Arm Bands On ID 07/31/2025 8:00 AM EDT Ramy Huerta RN Side Rails/Bed Safety 11/0807/31/2025 8:00 AM EDT Ramy Huerta RN NonSkid Footwear On;Patient in bed 07/31/2025 8: 00 AM EDT Ramy Huerta RN The Patient's Environment is Safe Yes 07/31/2025 8:00 AM EDT Ramy Huerta RN Head of Bed Angle 30 07/31/2025 8:0 0 AM EDT Ramy Huerta RN Bed Foot Left Rail Up State Yes 07/08 8:00 AM EDT Ramy Huerta RN Bed Head Right Rail Up State Yes 07/31/2025 8:00 AM EDT Ramy Huerta RN Bed Head Left Rail Up State Yes 07/08 8:00 AM EDT Ramy Huerta RN Bed Foot Right Rail Up State Yes 07/31/2025 8:00 AM EDT Ramy Huerta RN Bed Exit System Activate Status Yes 07/31/2025 8:00 AM EDT Ramy Huerta RN Bed Brake State Yes 07/31/2025 8:00 AM EDT Ramy Huerta RN Bed Low Height State Yes 07/31/2025 8:00 AM EDT Ramy Huerta RN Chair Exit System Activate Status Yes 07/31/2025 8:00 AM EDT Ramy Huerta RN * Fall Risk Interventions Question Answer Entry Date Author Enhanced Safety Measures education provided;family to remain at bedside;room near unit station 07/31/2025 8:00 AM Ramy De La Vega RN Toilet Every 2 Hours-In Advance of Need Yes 07/31/2025 8:00 AM Ramy De La Vega RN Hourly Visual Checks In bed 07/31/2025 8:00 AM Ramy De La Vega RN Room Door Open Deferred to promote rest 8:00 AM Ramy De La Vega RN Gait Belt Used For Transfers Not applicable 07/31/2025 8:00 AM Ramy De La Vega RN Fall Bundle Components Call light within reach;Personal belongings within reach;Overbed table within reach;Bed in lowest position;Bed wheels locked;Non-skid footwear on if up in chair or ambulating;Staff to remain with patient during ambulation and tranfers 07/31/2025 8:00 AM aRmy De La Vega RN * Mobility Question Answer Entry Date Author Range of Motion active ROM (range of motion) encouraged 07/31/2025 8:00 AM Ramy De La Vega RN Activity Management activity adjusted pe r tolerance 07/31/2025 8:00 AM Ramy De La Vega RN Body Position turned 07/31/2025 8:00 AM Ramy De La Vega RN VTE Prevention/Management bilateral;lower extremity;SCDs (sequential compression devices) off;education provided 07/31/2025 12:00 PM Ramy De La Vega RN Head of Bed (HOB) Positioning HOB elevated 07/31/2025 8:00 AM Ramy De La Vega RN Heels/Feet Foot of bed elevated;Heels elevated off bed 07/31/2025 8:00 AM Ramy De La Vega RN Positioning Frequency Able to turn self 07/31/20 8:00 AM Ramy De La Vega RN * Hygiene Question Answer Entry Date Author Oral Care mouth moisturizer 07/31/2025 8:00 AM Ramy De La Vega RN Oral Care (Yes/No) Yes 07/31/2025 8:00 AM EDT Ramy Huerta RN * Precautions Question Answer Entry Date Author Isolation Precautions protective 07/31/2025 8:00 AM EDT Ramy Huerta RN Precautions Environmental surveillance 07/31 8:00 AM EDT Ramy Huerta RN * Comfort and Environment Interventions Question Answer Entry Date Author Comfort Repositioned 07/31/2025 8:00 AM EDT Ramy Lynne RN * Safety Equipment at Bedside Question Answer Entry Date Author Standard Bedside Safety Ambu bags in hallway;Suction available, setup and working;Oxygen available and working 07/31/2025 8:00 AM EDT Ramy Huerta RN Additional Bedside Safety Bed in locked and low position;Clutter free environment 07/31/2025 8:00 AM EDT Ramy Huerta RN * IBW/kg (Calculated) Male Answer Entry Date Author 52.3 07/30/2025 7:11 PM EDT Giovanny Joya RN * IBW/kg (Calculated) Female Answer Entry Date Author 47.8 07/30/2025 7:11 PM EDT Giovanny Joya RN * Hourly Rounding Question Answer Entry Date Author Hourly Rounding Complete Per Guideline Yes 07/31/2025 12:00 PM EDT Ramy Huerta RN * Patient Violence Risk Assessment Question Answer Entry Date Author History of Violence: In the past 12 hours has the PATIENT exhibited any of the following? None 07/31/2025 8:00 AM EDT Ramy Huerta RN Potential for Violence: In the past 12 hours has the PATIENT exhibited any of the following? None 07/31/2025 8:00 AM EDT Ramy Huerta RN Risk No identified risk 07/31/2025 8: 00 AM EDT Ramy Huerta RN History of Violence: In the past 12 hours has a PARTNER IN CARE of the patient exhibited any of the following? None 07/31/2025 8:00 AM EDT Ramy Huerta RN * Airway Question Answer Entry Date Author Airway (FIDELL) WDL 07/31/2025 12:30 AM EDT Jina Cardenas RN * Breathing Question Answer Entry Date Author Breathing (WDL) WD 07/31/2025 12:30 AM EDT Jina Lea, EFE * Circulation Question Answer Entry Date Author Circulation ([facility]) WD 07/31/2025 12:30 AM EDT Jina Reno RN * Disability Question Answer Entry Date Author Disability ([facility]) WD 07/31/2025 12:30 AM EDT Jina Reno, EFE * Restart Vitals Timer Answer Entry Date Author Yes 07/31/2025 12:50 PM EDT Retana Sabiha J * IBW/kg (Calculated) Answer Entry Date Author 47.8 07/30/2025 7:11 PM EDT Giovanny Joya RN * Date of PT Session Question Answer Entry Date Author PT Initials KIR 07/31/2025 10:37 AM EDT Alejandrina Nance * Alcohol Use Concern Calculation Answer Entry Date Author 1 07/30/2025 7:14 PM EDT PegGiovanny saldaña RN * Calculated C-SSRS Risk Score (Lifetime/Recent) Answer Entry Date Author No Risk Indicated 07/30/2025 8:06 PM EDT Svetlana Stanley * Skip to questions 9-10? Answer Entry Date Author 1 07/30/2025 7:14 PM EDT Giovanny Joya RN * [place] Coma Scale Question Answer Entry Date Author Best Eye Response Spontaneous 07/31/2025 12:00 PM EDT Ramy Huerta RN Best Verbal Response Oriented 07/31/2025 12:00 PM EDT Ramy Huerta RN Best Motor Response Follows commands 07/31/2025 12:00 PM EDT Ramy Huerta RN [place] Coma Scale Score 15 07/31/2025 12:00 PM EDT Ramy Huerta RN * Restart Pain Assessment Timer Answer Entry Date Author Yes 07/31/2025 11:55 AM EDT Ramy Huerta RN * Seizure Question Answer Entry Date Author Seizure No 07/31/2025 12:30 AM EDT Jina Cardenas, EFE * Acuity Question Answer Entry Date Author Patient Acuity 3 07/30/2025 7:14 PM EDT Peg g, Sharon B, RN * KINDER 1 Fall Risk Factor Assessment Question Answer Entry Date Author Presented to ED because of fall 0 07/31/2025 12:30 AM EDT Jina Reno RN Age > 70 0 07/31/2025 12:30 AM EDT Jina Reno RN Intoxicated with alcohol or substance confusion 0 07/31/2025 12:30 AM EDT Jina Reno RN Ambulates or transfers with assistive devices or assist 0 07/31/2025 12:30 AM EDT Jina Reno RN Unable to ambulate or transfer 0 07/31/2025 12:30 AM EDT Jina Reno RN Nursing judgement 0 07/31/2025 12: 30 AM EDT Jina Reno RN KINDER 1 Fall Risk Score 0 025 12:30 AM EDT Jina Reno RN High Fall Risk Interventions for Scores 1 and above Bed in lowest position and locked;Call light within reach;Belongings within reach;Following general safety rules;Patient/family told to always call for assistance 07/31/2025 12:30 AM EDT Jina Rneo RN * [place] Suicide Severity Rating Scale Question Answer Entry Date Author Is patient awake, alert, and able to answer questions appropriately? Yes 07/30/2025 8:06 PM EDT Svetlana Stanley * Patient Belongings Placed in Locker Question Answer Entry Date Author Clothing Pants;Shirt;Footwear 07/30/2025 8:05 PM EDT Svetlana Stanley Belongings placed in Locker None 07/08 8:05 PM EDT Svetlana Stanley Belongings at Bedside Medical equipment;Clothing;Elec tronic devices 07/30/2025 8:05 PM EDT Svetlana Stanley Medical Equipment Cane 07/30/2025 8:0 5 PM EDT Svetlana Stanley * HEENT Question Answer Entry Date Author PARRISH (WDL) X 07/31/2025 12:59 AM EDT Jina Cardenas RN * [place] Suicide Severity Rating Scale Question Answer Entry Date Author 1. Wish to be (Past 1 Month) No 025 8:06 PM EDT Svetlana Stanley 2. Non-Specific Active Suici judy Thoughts (Past 1 Month) No 07/30/2025 8:06 PM EDT Svetlana Stanley 6. Suicidal Behavior (Lifetime) No 8:06 PM EDT Svetlana Stanley * Peripheral Vascular Question Answer Entry Date Author Peripheral Vascular Pertinent Negatives +2 pulses;Capillary refill brisk 07/31/2025 12:30 AM EDT Jina Reno RN Peripheral Vascular (WDL) X 2024 12:30 AM EDT Jina Reno RN * Weight in (lb) to have BMI = 25 Answer Entry Date Author 132 07/30/2025 7:11 PM EDT Pegg, All doretha Lazcano, RN * BMI (Calculated) Answer Entry Date Author 31.6 07/30/2025 7:11 PM EDT Pegg, Giovanny coyne B, RN * Percent Excess Weight Loss Answer Entry Date Author 0 07/30/2025 7:11 PM EDT Pegg, All doretha B, RN * Weight Change Since Preop Answer Entry Date Author 75.75 07/30/2025 7:11 PM EDT Pegg, Giovanny doretha B, RN * Initial Excess Weight Answer Entry Date Author -47.63 07/30/2025 7:11 PM EDT Pegg, All doretha B, RN * IBW in kg (Bariatric) Answer Entry Date Author 47.63 07/30/2025 7:11 PM EDT Pegg, All doretha B, RN * IBW in lb (Bariatric) Answer Entry Date Author 105 07/30/2025 7:11 PM EDT Pegg, All doretha B, RN * Weight Change Since Last Visit Answer Entry Date Author 75.75 07/30/2025 7:11 PM EDT Pegg, All doretha B, RN * Percent of IBW Answer Entry Date Author 159.05 07/30/2025 7:11 PM EDT Pegg, All doretha B, RN * EBW (kg) Answer Entry Date Author 28.1 07/30/2025 7:11 PM EDT Pegg, All doretha B, RN * EBW (lb) Answer Entry Date Author 62 07/30/2025 7:11 PM EDT Pegg, Giovanny Lazcano RN * Difference in Weight Since Last Visit Answer Entry Date Author 0.91 07/30/2025 7:11 PM EDT Pegg, Giovanny Lazcano RN * Pain Type Answer Entry Date Author Acute pain 07/31/2025 11:55 AM EDT Ramy Huerta RN * Temp (in Celsius) for YAKUTAT IV Answer Entry Date Author 36.6 07/31/2025 12:50 PM EDT Sabiha Retana * Pain Assessment Question Answer Entry Date Author Pain Location Back;Leg 07/31/2025 8:00 AM EDT Ramy Huerta RN Pain Orientation Left 07/31/2025 8:00 AM EDT Ramy Huerta RN Pain Descriptors Aching 07/31/2025 8:00 AM EDT Ramy Huerta RN Pain Frequency Constant/continuous 07/31/2025 8 :00 AM EDT Ramy Huerta RN Patient's Stated Pain Goal 4 07/31 8:00 AM EDT Ramy Huerta RN * Nutrition Question Answer Entry Date Author Diet Type Regular 07/31/2025 8:00 AM EDT Ramy Lynne RN Feeding Able to feed self 07/31/2025 8:00 AM EDT Ramy Huerta RN * IBW/kg (Calculated) Answer Entry Date Author 47.8 07/30/2025 7:11 PM EDT Pegpiper, Giovanny Lazcano RN * Adult Low Range Vt 6mL/kg Answer Entry Date Author 286.8 07/30/2025 7:11 PM EDT Pegg, Giovanny Lazcano, RN * Adult Moderate Range Vt 8mL/kg Answer Entry Date Author 382.4 07/30/2025 7:11 PM EDT Pegpiper, Giovanny Lazcano RN * Adult High Range Vt 10mL/kg Answer Entry Date Author 478 07/30/2025 7:11 PM EDT Pegpiper, Giovanny Lazcano, RN * Patient Belongings Sent Home Question Answer Entry Date Author Belongings Sent Home None 07/30/2025 8:05 PM E Svetlana Sky * Patient Belongings Sent to Safe/Security Question Answer Entry Date Author Belongings Sent to Safe/Security None 07/30/20 8:05 PM EDT Svetlana Stanley * PVS Additional Assessments Answer Entry Date Author LLE;RLE 07/31/2025 12:30 AM EDT Jina Pina RN * Integumentary Question Answer Entry Date Author 4 Eyes Skin Assessment Completed Yes 07/31/20 12:00 PM EDT Ramy Huerta RN Integumentary (WDL) WDL 07/31/2025 12:00 PM E Ramy Mckinley RN * Patient Medications Question Answer Entry Date Author Medications brought by patient? No 8:05 PM EDT Svetlana Stanley * Pain Score Answer Entry Date Author 6 07/31/2025 11:55 AM EDT Ramy Hureta RN * Confusion Assessment Method (CAM) Question Answer Entry Date Author Acute Onset and Fluctuating Course (1A) No 07/31/2025 8:00 AM EDT Ramy Huerta R N * Feature 3: Altered Level of Consciousness Answer Entry Date Author Negative 07/31/2025 10:56 AM EDT Libia Stanley * Urine Output/Assessment Question Answer Entry Date Author Urine Color Unable to assess 07/31/2025 12:3 0 PM EDT Ramy Huerta RN Unmeasured Urine Occurrence 1 07/08 12:30 PM EDT Ramy Huerta RN Urinary Incontinence No 07/31/2025 12:30 PM EDT Ramy Huerta RN Urine Amount Unable to assess 07/31/2025 12:3 0 PM EDT Ramy Huerta RN * Stool Output/Assessment Question Answer Entry Date Author Unmeasured Stool Occurrence (hourly total) 0 07/31/2025 3:00 PM EDT Ramy Huerta R N * Fall Risk Calculated Score Answer Entry Date Author Coates [place] 07/31/2025 8:00 AM EDT Ramy Huerta RN * Patient Specific Goals Question Answer Entry Date Author Patient/Family-Specific Goals (Include Timeframe) Patient will remain free from falls and injuries during dayshift today 07/31/2025 8:00 AM EDT Ramy Huerta RN Individualized Care Needs Safety 2024 8:00 AM EDT Ramy Huerta RN Anxieties, Fears or Concerns None stated at the moment 07/31/2025 8:00 AM EDT Ramy Huerta RN * Delirium Assessment Question Answer Entry Date Author Delirium Scale Used Confusion Assessment Method 07/31/2025 8:00 AM EDT Ramy Huerta RN * Pain Assessment Answer Entry Date Author 0-10 (Adult DVPRS/Peds 0-10) 07/31/2025 11:55 AM EDT Ramy Huerta RN * Deterioration Index Score Question Answer Entry Date Author Deterioration Index Score 28.38 07/31/2025 3:15 PM EDT Batool Virk * [place] Coma Scale Numeric Answer Entry Date Author 15 07/31/2025 12:00 PM EDT Ramy Huerta RN * Elevate heels task - custom formula Answer Entry Date Author 1 07/31/2025 8:00 AM EDT Ramy Huerta RN * Neurological Question Answer Entry Date Author Neuro Pertinent Negatives Alert and oriented x 4;Speech clear 07/31/2025 12:30 AM EDT Jina Reno RN * Musculoskeletal Question Answer Entry Date Author RLE Pain with movement;F ull movement;Other (Comment);No injury/trauma 07/30/2025 8:06 PM EDT Svetlana Stanley Musculoskeletal Pertinent Negatives Moves all extremities 07/31/2025 12:30 AM EDT Jina Reno RN Musculoskeletal (WDL) WDL 07/31/2025 12:30 AM EDT Jina Reno RN * Cough Question Answer Entry Date Author Cough Present No 07/31/2025 12:30 AM EDT Jina Gillespie RN * Vitals Timer Question Answer Entry Date Author Update Vitals Alert Interval 240 07/30/2025 1 1:35 PM EDT Svetlana Stanley Restart Vitals Timer Yes 07/31/2025 12:50 PM EDT Sabiha Retana Restart Vitals Timer Yes 07/31/2025 12:50 PM EDT Sabiha Retana * Hourly Rounding Question Answer Entry Date Author Activity Assistance One person assist 07/31/2025 12:00 PM EDT Ramy Huerta RN Repositioned Turns self;Prompted independent patient to reposition 07/31/2025 12:00 PM EDT Ramy Huerta RN Head of Bed Elevated HOB 30 07/31/2025 12:00 PM EDT Ramy Huerta RN Toileting Offered and refused 07/31/2025 1 2:00 PM EDT Ramy Huerta RN Call Light Oriented to call light;Call light present and within reach 07/31/2025 12:00 PM EDT Ramy Huerta RN Rest/ Sleep No problem identified 07/31/2025 12:00 PM EDT Ramy Huerta RN Rest/ Sleep Enhancement Care clustered t o minimize awakenings 07/31/2025 6:27 AM EDT Jina Reno RN Completed Hourly Rounding Yes 2024 12:00 PM EDT Ramy Huerta RN Plan of Care Reviewed With Patient 07/31/2025 12:00 PM EDT Ramy Huerta RN * Elopement Risk Screen Question Answer Entry Date Author Does the patient exhibit any of the following behaviors? No 07/31/2025 8:00 AM EDT Ramy Huerta RN * Cognition Question Answer Entry Date Author Mood/Behavior Alert 07/31/2025 10:56 AM EDT Susie Stanley Orientation Level Oriented X4 07/31/2025 10: 56 AM EDT Susie Stanley Overall Cognitive Status WFL 025 10:56 AM EDT Susie Stanley Arousal/Alertness Appropriate response s to stimuli 07/31/2025 10:56 AM EDT Susie Stanley Single Step Commands Consistently 07/31/2025 10:56 AM EDT Susie Stanley Multi-Step Commands Consistently 07/31/2025 1 0:56 AM EDT Susie Stanley * C-SSRS (Frequent Screener) Question Answer Entry Date Author Is patient awake, alert, and able/willing to answer questions appropriately? Yes 07/31/2025 8:00 AM EDT Ramy Huerta R N * AMPAC 6-Clicks Mobility Assessment Question Answer Entry Date Author Difficulty patient has turni ng over in bed (including adjusting bedclothes, sheets, and blankets)? 4 07/31/2025 10:37 AM EDT Alejandrina Patel Difficulty patient has sitti ng down on and standing up from a chair with arms (wheelchair, bedside commode, etc.)? 4 07/31/2025 10:37 AM MART Alejandrina Gonzalez Difficulty patient has movin g from lying on back to sitting on the side of the bed? 4 07/31/2025 10:37 AM EDT Jeff Gonzalez How much help does the patie nt need moving to and from a bed to a chair (including a wheelchair)? 4 07/31/2025 10:37 AM EDT Alejandrina Nance How much help does the patie nt need to walk in hospital room? 4 07/31/2025 10:37 AM EDT Alejandrina Pena How much help does the patie nt need climbing 3-5 steps with a railing? 3 07/31/2025 10:37 AM EDT Jeff Gonzalez [facility] 6-Clicks Mobility Asse ssment Total 23 07/31/2025 10:37 AM EDJeff Maldonado documented in this encounter Discharge Instructions * Discharge Instructions* Gina Anton, - 07/31/2025 2:05 PM EDT - Continue regular home medications - check your blood glucose and use your diabetes medications as prescribed - if you fasting (morning) blood glucose is greater than 150 increase your insulin dose by 2 units - follow-up with NSGY outpatient When to seek medical care Seek medical care right away if: You can't stand or walk You have a temperature over 100.4??F ( 38.0??C), or as advised by your healthcare provider You have frequent, painful, or bloody urination You have severe abdominal pain You have a sharp, stabbing pain Your pain is constant You have pain, tingling, or numbness in your leg You have weakness in one or both legs or problems with bladder, bowel, or sexual function. These symptoms should be seen by a healthcare provider right away. This is because they can be caused by compression of the nerve bundle at the base of the spine. You feel pain in a new area of your back You notice that the pain isn???t decreasing after more than a week Your symptoms worsen or new symptoms develop documented in this encounter Medications at Time of Discharge amLODIPine (Norvasc) 10 MG tablet Take 1 tablet by mouth daily. aspirin 81 MG EC tablet Take 1 tablet by mouth daily. atorvastatin (Lipitor) 40 MG tablet Take 1 tablet by mouth every evening. 03/27/2024 bisacodyl (Bisacodyl EC) 5 MG EC tablet Take all 4 tablets at 4 PM on day before colonoscopy IF INSURANCE DOES NOT COVER, please inform pt to purchase OTC 4 tablet 07/13/2025 busPIRone (Buspar) 10 MG tablet Take 1 tablet by mouth 3 times a day. citalopram (CeleXA) 40 MG tablet Take 1 tablet by mouth daily. cyanocobalamin 50 MCG tablet Take 1 tablet by mouth daily. cyclobenzaprine (Flexeril) 5 MG tablet Take 1 tablet by mouth 3 times a day as needed for muscle spasms. 30 tablet 06/15/2025 ergocalciferol 1.25 MG (57597 UT) capsule Take 1 capsule by mouth 1 time per week. Evolocumab (Sebastien Wick) 140 MG/ML solution auto-injector autoinjector INJECT 1 DOSE UNDER THE SKIN EVERY 2 WEEKS fluticasone (Flonase) 50 MCG/ACT nasal spray Administer 2 sprays into each nostril daily. furosemide (Lasix) 20 MG tablet Take 1 tablet by mouth daily. levothyroxine (Synthroid, Levoxyl) 137 MCG tablet Take 1 tablet by mouth daily. lisinopril 20 MG tablet Take 1 tablet by mouth daily. naloxone (Narcan) 4 mg/0.1 mL nasal spray 1. Give 1 spray in nostril for no/slow breathing or cannot wake after opioid use 2. Call 911 3. Repeat in other nostril if symptoms continue 1 each 01/12/2025 pantoprazole (Protonix) 40 MG EC tablet Take 1 tablet by mouth 2 times a day. Do not crush, chew, or split. pen needle, diabetic 31G X 5 MM misc Use as directed with insulin pen. 100 each 11 09/20/2024 polyethylene glycol (GoLYTELY) 236 g solution SEE PHARMACY NOTES FOR PATIENT LABEL INSTRUCTIONS- for Colonoscopy prep protocol 4000 mL 07/13/2025 pregabalin (Lyrica) 150 MG capsule Take 1 capsule by mouth 2 times a day. 60 capsule 2 06/28/2025 Semaglutide, 1 MG/DOSE, (Ozempic, 1 MG/DOSE,) 4 MG/3ML solution pen-injector Inject 1 mg under the skin 1 time per week. senna-docusate (Mona-Colace) 8.6-50 MG tablet Take 2 tablets by mouth 2 times a day. 20 tablet 05/19/2025 predniSONE (Deltasone) 20 MG tablet Take 2 tablets by mouth daily for 4 days. Starting on 08/01 8 tablet 07/31/2025 documented as of this encounter Miscellaneous Notes * Ramy Hummel RN - 07/31/2025 3:09 PM EDT Images from the original note were not included. Focus On: Sciatica - Video Watch this to learn about Sciatica, what it is and what treatments might be available for it. To view the video go to this web address: [email or web address] Or, scan this QR code with your smart phone ?? [facility] [facility] * Ramy Hummel RN - 07/31/2025 3:09 PM EDT Images from the original note were not included. [id number] Self-Care for Low Back Pain Most people have low back pain now and then. In many cases, it isn?t serious, and self-care can help. Sometimes low back pain can be a sign of a bigger problem. Call your healthcare provider if your pain returns often or gets worse over time. There are plenty of ways to take care of your back. Get regular exercise, lose any excess weight, and practice good posture. Take a short rest Lying down during the day may be helpful for short periods of time if pain worsens with sitting or standing. It may help to have a pillow under the knees when lying on your back. But, keep in mind, long-term bed rest could be damaging. Reduce pain and swelling Cold reduces swelling. Both cold and heat can reduce pain. Remember to protect your skin by placinga towel between your body and the ice or heat source. ? For the first few days, apply an ice pack for 15 to 20 minutes, several times a day. To make a cold pack, put ice cubes in a plastic bag that seals at the top. A wrapped frozen bag of vegetables can also work as a cold pack. ? After the first few days, try heat for 15 minutes at a time to ease pain. Always make sure the heating pad is wrapped. Never sleep on a heating pad. ? Fskf-aum-wcvrnne medicine can help control pain and swelling. Try aspirin or a nonsteroidal anti-inflammatory drugs (NSAIDs) such as ibuprofen. Exercise Exercise can help your back heal. It also helps your back get stronger and more flexible, preventing any reinjury. Ask your healthcare provider about specific exercises for your back. Use good posture to avoid reinjury ? When moving, bend at the hips and knees. Don?t bend at the waist or twist around. ? When lifting, keep the object close to your body. Lift heavy items using your legs, not your back. Don?t try to lift more than you can handle. ? When sitting, keep your lower back supported. Use a rolled-up towel as needed. Make sure your work area or desk is at the correct height. ? Use a mirror to check your posture when you walk. Stand straight with shoulders back. Ask your healthcare providers for exercises that will improve your posture. When to seek medical care Seek medical care right away if: ? You can't stand or walk ? You have a temperature over 100.4??F ( 38.0??C), or as advised by your healthcare provider ? You have frequent, painful, or bloody urination ? You have severe abdominal pain ? You have a sharp, stabbing pain ? Your pain is constant ? You have pain, tingling, or numbness in your leg ? You have weakness in one or both legs or problems with bladder, bowel, or sexual function. These symptoms should be seen by a healthcare provider right away. This is because they can be caused by compression of the nerve bundle at the base of the spine. ? You feel pain in a new area of your back ? You notice that the pain isn?t decreasing after more than a week ? Your symptoms worsen or new symptoms develop Last Reviewed Date: 2024 00:00:00 ?? [id number] [employer]. All rights reserved. This information is not intended as a substitute for professional medical care. Always follow your healthcare professional's instructions. * Discharge Summary - Gina Anton DO - 07/31/2025 2:07 PM EDT Hospitalization Admit Date/Time: 07/30/2025 7:43 PM Admitting Attending: Discharge Date: 07/31/25 Discharge Attending Physician: Carl Bishop MD PCP name and Address: Meli Gallardo, ENGINEERING ADMINISTRATOR [address] [place] [address] / [place] [id number] Referring provider name and address: No referring provider defined for this encounter. Chief Concern, Brief History of Present Illness, and Hospital Course April Olvera is a 65 y.o. female presenting with worsening back pain. Her medical history is notable for L4-L5 TLIF in May. She notes that her pain worsened approximately 3 days ago without any specific trauma or injury. She notes waking up with the pain. Patient's pain has continued to worsen though she is still mobile. Notes that the pain, when exacerbated with bending forward or walking, radiates into her right lower extremity. No fevers, chills, or headaches. No urinary or fecal incontinence. Decreased strength in the RLE 2/2 pain, however still able to ambulate. Patient has tried toradol, lyrica, and muscle relaxers without benefit. Follows with NSGY outpatient. X-ray of lumbar spine with no acute findings. PT/OT evaluated patient while in the ED and recommendoutpatient PT/OT, which the patient already has orders for from neurosurgery. Plan will be for a short course of steroids, and referral to neurosurgery for a sooner appointment. Educated patient on steroid's impact on blood glucose. Discussed checking fasting glucose and if > 150 increasing insul in dose by 2 units daily until therapy is complete. Surgeries and Procedures XR Lumbar Spine 2 or 3 Views Result Date: 07/30/2025 Impression: No acute findings. CRITICAL RESULT: No. COMMUNICATION: Per this written report. Draftedby Pavel Devlin MD on 07/30/2025 8:28 PM Final report signed by Pavel Devlin MD on 07/30/2025 8:29 PM Medication List .. pen needle, diabetic 31G X 5 MM misc Use as directed with insulin pen. predniSONE 20 MG tablet Commonly known as: Deltasone Take 2 tablets by mouth daily for 4 days. Starting on 08/01 . amLODIPine 10 MG tablet Commonly known as: Norvasc Take 1 tablet by mouth daily. aspirin 81 MG EC tablet Wait to take this until your doctor or other care provider tells you to start again. Take 1 tablet by mouth daily. atorvastatin 40 MG tablet Commonly known as: Lipitor Take 1 tablet by mouth every evening. bisacodyl 5 MG EC tablet Commonly known as: Bisacodyl EC Take all 4 tablets at 4 PM on day before colonoscopy IF INSURANCE DOES NOT COVER, please inform pt to purchase OTC busPIRone 10 MG tablet Commonly known as: Buspar Take 1 tablet by mouth 3 times a day. citalopram 40 MG tablet Commonly known as: CeleXA Take 1 tablet by mouth daily. cyanocobalamin 50 MCG tablet Commonly known as: Vitamin B-12 Take 1 tablet by mouth daily. cyclobenzaprine 5 MG tablet Commonly known as: Flexeril Take 1 tablet by mouth 3 times a day as needed for muscle spasms. ergocalciferol 1.25 MG (85896 UT) capsule Commonly known as: Vitamin D-2 Take 1 capsule by mouth 1 time per week. fluticasone 50 MCG/ACT nasal spray Commonly known as: Flonase Administer 2 sprays into each nostril daily. furosemide 20 MG tablet Commonly known as: Lasix Take 1 tablet by mouth daily. ketorolac 10 MG tablet Commonly known as: Toradol Take 1 tablet by mouth 3 times a day for 3 days. Ask about: Should I take this medication? levothyroxine 137 MCG tablet Commonly known as: Synthroid, Levoxyl Take 1 tablet by mouth daily. lisinopril 20 MG tablet Take 1 tablet by mouth daily. naloxone 4 mg/0.1 mL nasal spray Commonly known as: Narcan 1. Give 1 spray in nostril for no/slow breathing or cannot wake after opioid use 2. Call 911 3. Repeat in other nostril if symptoms continue Ozempic (1 MG/DOSE) 4 MG/3ML solution pen-injector Generic drug: Semaglutide (1 MG/DOSE) Inject 1 mg under the skin 1 time per week. pantoprazole 40 MG EC tablet Commonly known as: Protonix Take 1 tablet by mouth 2 times a day. Do not crush, chew, or split. polyethylene glycol 236 g solution Commonly known as: GoLYTELY SEE PHARMACY NOTES FOR PATIENT LABEL INSTRUCTIONS- for Colonoscopy prep protocol pregabalin 150 MG capsule Commonly known as: Lyrica Take 1 capsule by mouth 2 times a day. Repatha SureClick 140 MG/ML solution auto-injector autoinjector Generic drug: Evolocumab INJECT 1 DOSE UNDER THE SKIN EVERY 2 WEEKS senna-docusate 8.6-50 MG tablet Commonly known as: Mona-Colace Take 2 tablets by mouth 2 times a day. Where to Get Your Medications These medications were sent to [facility] - [place] [id number] predniSONE 20 MG tablet Discharge Diagnosis Medical Problems Active and Resolved Hospital Problems Hospital Right sided sciatica Post Discharge Instructions - Continue regular home medications - check your blood glucose and use your diabetes medications as prescribed - if you fasting (morning) blood glucose is greater than 150 increase your insulin dose by 2 units - follow-up with NSGY outpatient When to seek medical care Seek medical care right away if: You can't stand or walk You have a temperature over 100.4??F ( 38.0??C), or as advised by your healthcare provider You have frequent, painful, or bloody urination You have severe abdominal pain You have a sharp, stabbing pain Your pain is constant You have pain, tingling, or numbness in your leg You have weakness in one or both legs or problems with bladder, bowel, or sexual function. These symptoms should be seen by a healthcare provider right away. This is because they can be caused by compression of the nerve bundle at the base of the spine. You feel pain in a new area of your back You notice that the pain isn???t decreasing after more than a week Your symptoms worsen or new symptoms develop Outpatient Follow-Up Future Appointments Date Time Provider Department Center 08/13/2025 8:00 AM Raúl Miller DO [facility] 09/08/2025 1:30 PM Tito Sue MD [facility] Test Results Pending At Discharge None Pertinent Physical Exam At Time of Discharge Physical Exam Constitutional: General: She is not in acute distress. Appearance: Normal appearance. She is not ill-appearing, toxic-appearing or diaphoretic. HENT: Head: Normocephalic and atraumatic. Eyes: General: No scleral icterus. Right eye: No discharge. Left eye: No discharge. Conjunctiva/sclera: Conjunctivae normal. Cardiovascular: Pulses: Normal pulses. Heart sounds: Normal heart sounds. Pulmonary: Effort: Pulmonary effort is normal. No respiratory distress. Breath sounds: Normal breath sounds. Musculoskeletal: Right lower leg: No edema. Left lower leg: No edema. Comments: Normal strength and sensation bilateral feet Decreased strength in RLE with hip flexion, however patient able to ambulate Skin: General: Skin is warm. Coloration: Skin is not jaundiced. Neurological: Mental Status: She is alert. Psychiatric: Mood and Affect: Mood normal. Behavior: Behavior normal. Thought Content: Thought content normal. Judgment: Judgment normal. Discharge Disposition/Condition Disposition: Home Condition: Stable (s/sx potential problems absent or manageable) I spent >30 minutes of patient care and instruction time in preparation for this discharge. Cosigned by Carl Bishop MD at 08/01/2025 11:54 AM EDT Associated attestation - Carl Bishop MD - 08/01/2025 11:54 AM EDT I saw and evaluated the patient with the resident/fellow. I discussed the case with the resident/fellow and agree with the findings and plan as documented. I spent 30 minutes of patient care and instruction time in preparation for this discharge. * Assessment & Plan Note - Luis Oliver MD - 07/31/2025 11:03 AM EDTAssociated Problem(s): Right sided sciatica Patient has persistently worsening lumbar back pain with nerve-like pain radiating into her right lower extremity to the level of the knee. Labs and imaging findings have been negative. Physical examination reveals acutely positive straight leg raise raising concern for sciatic-associated modality of pain. Discussed with the patient who agrees. PLAN: - Admit to ED OBS - q4hr vitals - Flexeril 5mg nightly - Avoid corticosteroids due to florid hyperglycemia - Lidocaine 5% patches for back * Progress Notes - Alejandrina Gonzalez I - 07/31/2025 10:57 AM EDT Physical Therapy Evaluation Patient Name: April Olvera Today's Date: 07/31/2025 Total Treatment Time: 23 minutes PT Discharge Recommendations: Home with assistance, Outpatient PT Equipment Recommended: Patient owns appropriate equipment History April Olvera is 65 y.o. adult admitted 07/30/2025 for work-up of No Principal Problem: Worsening back pain with radiating into RLE Problem List Active Hospital Problems Diagnosis Date Noted Right sided sciatica 07/31/2025 Procedures Past Medical History Patient has a past medical history of Anxiety, Class 1 obesity, COVID-19, Diabetic neuropathy, Diaphragmatic hernia without obstruction or gangrene (03/30/2024), Former tobacco use, GERD (gastroesophageal reflux disease), H/O renal calculi, Hypertension, Hypothyroidism, IBS (irritable bowel syndrome), Mixed dyslipidemia, PVD (peripheral vascular disease), Sleep apnea, TIA (transient ischemic attack), TIA (transient ischemic attack), and Type 2 diabetes mellitus. Past Surgical History Patient has a past surgical history that includes Cholecystectomy (N/A); Bladder surgery (N/A); Carpal tunnel release (Bilateral); Knee surgery (Bilateral); Cardiac catheterization (N/A); Elbow surgery (Right); Shoulder surgery (Right); Hysterectomy; Upper gastrointestinal endoscopy; Colonoscopy; Other surgical history; Lumbar fusion; Hernia repair (09/18/2024); and Total thyroidectomy. Precautions None; encouraged continued spinal precautions from recent surgery. Subjective Patient agreeable to PT session. Patient reports improving pain. Participants in Care Family/Caregiver Present: No Cardiac Tech: Not Applicable Presentation Oxygen Therapy: None (Room air) Lines and Tubes: Peripheral IV 07/30/25 Right Antecubital (Active) Pre-Session: Supine, Head of bed elevated, Lines intact Pre-Session Comments: RN agreeable to evaluation. Post-Session: Supine, Head of bed elevated, Lines intact, RN notified, Call light in reach Post-Session Comments: Pt positioned for comfort in the bed all needs met. Home Living/Set-up Lives With: Spouse Home Type: House Home Adaptive Equipment: Cane, Rolling walker, shower chair Home Layout: Stairs to enter with rails, One level Number of Stairs: 1 Bathroom: Tub/Shower: Tub/Shower combo, Shower chair, Handheld shower head, Grab bars Bathroom: Toilet: Tall Bathroom: Accessibility: Accessible via walker Home Living Comments: Spouse works during the day; family lives next door and can assist if needed.Patient has not driven since surgery Prior Level of Function Receives Help From: No assist required prior to admission Level of Mobility: Ambulatory- community Mobility [place]: Independent gait with device (RUE SPC) History of Falls: No ADL Performance: Needs assistance Bathing: Needs device (intermittently) Upper Body Dressing: Independent Lower Body Dressing: Independent Grooming: Independent Toileting: Independent Eating: Independent Home Management Skills: Independent Patient/Family Goals To return home Objective Pain Patient reports 5/10 pain in low back at rest and following ambulation. Patient positioned for comfort with pillow support at conclusion of session. PT provided ice pack. PT followed up with RN to ensure patient is receiving nerve pain medication. Delirium Screening RASS: Alert and calm Confusion Assessment Method-ICU (CAM-ICU/PCAM-ICU) Feature 3: Altered Level of Consciousness: Negative Cognition Overall Cognitive Status: Within Functional Limits Arousal/Alertness: Appropriate responses to stimuli Mood/Behavior: Alert Orientation Level: Oriented X4 Single Step Commands: Consistently Multi-Step Commands: Consistently Vision - Basic Assessment Baseline Vision: Glasses distance Right Upper Extremity Examination RUE Assessment: Within Functional Limits Manual Muscle Testing - RUE: Within functional limits Sensation Light Touch: Right Upper Extremity: Intact Left Upper Extremity Examination LUE ROM Assessment LUE Assessment: Within Functional Limits Manual Muscle Testing - LUE Manual Muscle Testing - LUE: Within functional limits Sensation Light Touch: Left Upper Extremity: Intact Right Lower Extremity Examination RLE ROM Assessment RLE Assessment: Within Functional Limits Manual Muscle Testing - RLE Manual Muscle Testing - RLE: (Hip 3-/5, knee 3+/5, ankle 3+/5; limited by pain) Sensation Light Touch: Right Lower Extremity: Moderate impairment (numbness and tingling from hip to knee) Left Lower Extremity Examination LLE Assessment: Within Functional Limits Manual Muscle Testing: Within functional limits Sensation Light Touch: Left Lower Extremity: Intact Bed Mobility Bed Mobility Exam: Scooting/Bridging Level of [place]: Stand-by assist Physical/Nonphysical Assist: Verbal Cues Bed Mobility Exam: Supine to Sit Level of [place]: Stand-by assist Physical/Nonphysical Assist: HOB elevated, Minimal cues Bed Mobility Exam: Sit to Supine Level of [place]: Stand-by assist Physical/Nonphysical Assist: HOB elevated, Minimal cues Transfers Transfer Interventions: PT provided verbal cues to keep one UE on a stable surface prior to transitional movements for safety as patient attempting to pull on AD with bilateral UE's. Cues also provided to reach back to surface prior to sitting for safety and eccentric control. Transfer Exam: Sit to stand Level of [place]: Stand-by assist Physical/Nonphysical Assist: Verbal Cues Assistive Device: Cane, straight Transfer Exam: Stand to Sit Level of [place]: Stand-by assist Physical/Nonphysical Assist: Verbal Cues Assistive Device: Walker, rolling Toilet Transfer Level of [place]: Stand-by assist Physical/Nonphysical Assist: Verbal Cues Type of Transfer: Ambulation, To toilet Assistive Device: Walker, rolling, Grab bar Ambulation Device: Single point cane, Rolling walker Distance : 40' with SPC transitioning to RW for additonal 40' to bathroom + 80' Ambulation Comments: Patient demonstrates with increased lateral sway, decreased juliann, and antalgic gait with SPC to RUE; PT provided RW and noted with increased juliann, improved stability, and reports of decreased pain with BUE support. PT provided verbal cues for safe AD proximity and pacing. Balance Postural Appearance Posture: Within Functional Limits Static Sitting Balance Static Sitting-Level of Assistance: Independent Dynamic Sitting Balance Level of Assistance: Independent Static Standing Balance Static Standing-Balance Support: Right upper extremity support, Left upper extremity support Static Standing-Level of Assistance: Supervision Dynamic Standing Balance Dynamic Standing-Balance Support: Left upper extremity support, Right upper extremity support Dynamic Standing-Balance: Lateral weight shifts, Anterior/Posterior weight shifts Dynamic Standing Level of Assistance: Standby assist Therapeutic Activity (13 minutes) Patient participated in therapeutic activity focused on increasing tolerance to functional tasks and increasing independence with bed mobility, transfers, and patient education regarding HEP and mobility. PT provided skilled management of medical lines/tubes and environmental set-up to ensure safety and reduce fall risk during with mobility. Patient requesting to utilize bathroom, + void and stood at bathroom sink x 3 minutes for standing dynamic balance activities including multidirectional reaching with supervision for balance. Increased cues for safe AD proximity while navigating in the bathroom for safety/reduced fall risk. PT educated patient on utilizing RW for improved stability/painmitigation vs SPC, home safety, continued mobility for pain relief, and PT POC in OP PT setting. PTencouraged HEP including pelvic tilts and TA holds in preparation for OP PT. Standardized Assessments Standardized Assessments Standardized Assessments: [facility] 6-Clicks Mobility Assessment [facility] 6-Clicks Mobility Assessment Difficulty patient has turning over in bed (including adjusting bedclothes, sheets, and blankets)?:None Difficulty patient has sitting down on and standing up from a chair with arms (wheelchair, bedside commode, etc.)?: None Difficulty patient has moving from lying on back to sitting on the side of the bed?: None How much help does the patient need moving to and from a bed to a chair (including a wheelchair)?: None How much help does the patient need to walk in hospital room?: None How much help does the patient need climbing 3-5 steps with a railing?: A little [facility] 6-Clicks Mobility Assessment Total : 23 Assessment Patient demonstrates all mobility with SBA-independence this session. Due to patient's current presentation and lack of impairments, skilled PT is not indicated for the remainder of inpatient stay. Patient has good social support from her spouse and parents upon discharge as needed. Patient denies need for additional DME. PT will sign off at this time. Please re-consult if there is a change in medical status or a physical decline. Eval Complexity History Profile: 1 - 2 personal factors and/or comorbidities Clinical Presentation: Stable and/or uncomplicated characteristics Clinical Decision Making: Low complexity PT Recommendations Discharge Destination: Home with assistance, Outpatient PT Discharge Equipment: Patient owns appropriate equipment Plan Patient no longer demonstrates need for inpatient physical therapy services. Patient to be discharged from physical therapy. Written by Alejandrina Gonzalez on 07/31/25 at 11:08 AM. * Progress Notes - Susie Stanley Mirian - 07/31/2025 10:56 AM EDT Occupational Therapy Evaluation & Discharge Summary Patient Name: April Olvera Today's Date: 07/31/2025 Treatment Time: 23 minutes OT Discharge Recommendations: Home with assistance, Outpatient PT Equipment Recommended: Patient owns appropriate equipment History April Olvera is 65 y.o. adult admitted 07/30/2025 for work-up of R sided back pain. Problem List Active Hospital Problems Diagnosis Date Noted Right sided sciatica 07/31/2025 Procedures Past Medical History Patient has a past medical history of Anxiety, Class 1 obesity, COVID-19, Diabetic neuropathy, Diaphragmatic hernia without obstruction or gangrene (03/30/2024), Former tobacco use, GERD (gastroesophageal reflux disease), H/O renal calculi, Hypertension, Hypothyroidism, IBS (irritable bowel syndrome), Mixed dyslipidemia, PVD (peripheral vascular disease), Sleep apnea, TIA (transient ischemic attack), TIA (transient ischemic attack), and Type 2 diabetes mellitus. Past Surgical History Patient has a past surgical history that includes Cholecystectomy (N/A); Bladder surgery (N/A); Carpal tunnel release (Bilateral); Knee surgery (Bilateral); Cardiac catheterization (N/A); Elbow surgery (Right); Shoulder surgery (Right); Hysterectomy; Upper gastrointestinal endoscopy; Colonoscopy; Other surgical history; Lumbar fusion; Hernia repair (09/18/2024); and Total thyroidectomy. Precautions Medical Precautions: Fall precautions Subjective Pt is agreeable to the OT evaluation. Participants in Care Family/Caregiver Present: No Cardiac Tech: Not Applicable Presentation Oxygen Therapy: None (Room air) Lines and Tubes: Peripheral IV 07/30/25 Right Antecubital (Active) Pre-Session: Supine, Head of bed elevated, Lines intact Pre-Session Comments: RN agreeable to evaluation. Post-Session: Supine, Head of bed elevated, Lines intact, RN notified, Call light in reach Post-Session Comments: Pt positioned for comfort in the bed all needs met. Home Living/Set-up Lives With: Spouse Home Type: House Home Adaptive Equipment: Cane, Rolling walker, shower chair Home Layout: Stairs to enter with rails, One level Number of Stairs: 1 Bathroom: Tub/Shower: Tub/Shower combo, Shower chair, Handheld shower head, Grab bars Bathroom: Toilet: Tall Bathroom: Accessibility: Accessible via walker Home Living Comments: Spouse works during the day; family lives next door and can assist if needed.Patient has not driven since surgery Prior Level of Function Receives Help From: No assist required prior to admission Level of Mobility: Ambulatory- community Mobility [place]: Independent gait with device (RUE SPC) History of Falls: No ADL Performance: Needs assistance Bathing: Needs device (intermittently) Upper Body Dressing: Independent Lower Body Dressing: Independent Grooming: Independent Toileting: Independent Eating: Independent Home Management Skills: Independent Patient/Family Goals Statement Objective Pain Pt reports 5/10 R LE pain pre and post session. RN aware. OT assisted with positioning for comfort and an ice pack was provided. Delirium Screening RASS: Alert and calm Confusion Assessment Method-ICU (CAM-ICU/PCAM-ICU) Feature 3: Altered Level of Consciousness: Negative Cognition Overall Cognitive Status: Within Functional Limits Arousal/Alertness: Appropriate responses to stimuli Mood/Behavior: Alert Orientation Level: Oriented X4 Single Step Commands: Consistently Multi-Step Commands: Consistently Vision - Basic Assessment Baseline Vision: Glasses distance Right Upper Extremity Examination RUE ROM Assessment RUE Assessment: Within Functional Limits Manual Muscle Testing - RUE: Within functional limits Sensation Light Touch: Right Upper Extremity: Intact Left Upper Extremity Examination LUE ROM Assessment LUE Assessment: Within Functional Limits Manual Muscle Testing - LUE: Within functional limits Sensation Light Touch: Left Upper Extremity: Intact Right Lower Extremity Examination RLE ROM Assessment RLE Assessment: Within Functional Limits Manual Muscle Testing - RLE: (Hip 3-/5, knee 3+/5, ankle 3+/5; limited by pain) Sensation Light Touch: Right Lower Extremity: Moderate impairment (numbness and tingling from hip to knee) Left Lower Extremity Examination LLE ROM Assessment LLE Assessment: Within Functional Limits Manual Muscle Testing: Within functional limits Sensation Light Touch: Left Lower Extremity: Intact Bed Mobility Bed Mobility Exam: Scooting/Bridging Level of [place]: Stand-by assist Physical/Nonphysical Assist: Verbal Cues Bed Mobility Exam: Supine to Sit Level of [place]: Stand-by assist Physical/Nonphysical Assist: HOB elevated, Minimal cues Bed Mobility Exam: Sit to Supine Level of [place]: Stand-by assist Physical/Nonphysical Assist: HOB elevated, Minimal cues Transfers Transfer Exam: Sit to stand Level of [place]: Stand-by assist Physical/Nonphysical Assist: Verbal Cues Assistive Device: Cane, straight Transfer Exam: Stand to Sit Level of [place]: Stand-by assist Physical/Nonphysical Assist: Verbal Cues Assistive Device: Walker, rolling Toilet Transfer Type of Transfer: Ambulation, To toilet Balance Postural Appearance Posture: Within Functional Limits Static Sitting Balance Static Sitting-Level of Assistance: Independent Dynamic Sitting Balance Level of Assistance: Independent Static Standing Balance Static Standing-Balance Support: Right upper extremity support, Left upper extremity support Static Standing-Level of Assistance: Supervision Dynamic Standing Balance Dynamic Standing-Balance Support: Left upper extremity support, Right upper extremity support Dynamic Standing-Balance: Lateral weight shifts, Anterior/Posterior weight shifts Dynamic Standing Level of Assistance: Standby assist Self-Care Interventions Self Care/Home Management (ADLs) Time Entry: 15 Self-Care Interventions: Therapist challenged patient to engage in sequential task training activity such as simulated household mobility (40ft + 40ft) with stand-by assist with cane transitioning toa rolling walker with improved gait stability and juliann necessary for completing daily routines of grooming and toileting. Therapist provided min verbal and tactile cues, and environmental modifications, to encourage patient's highest level of independence with direct ADL performance. Grooming Grooming Level of Assistance: SBA, Minimal verbal cues Grooming Where Assessed: Standing sinkside Grooming Interventions: Pt completed hand hygeine standing at the sink with min verbal cues for rolling walker positioning and SBA. Lower Extremity Dressing Sock Level of Assistance: Setup (SBA) Shoe Level of Assistance: Setup (SBA) LE Dressing Where Assessed: Edge of bed LE Dressing Interventions: Pt utilized figure four sitting to don footwear at eob with SBA prior toout of bed mobility. Toileting Toileting Level of Assistance: SBA Where Assessed: Toilet Toileting Interventions: Pt ambulated to the commode and transferred with SBA and min verbal cues for rolling walker positioning. She was able to complete mona hygeine and clothing management sitting/standing at the commode with SBA without loss of balance. Standardized Assessments [facility] 6-Click Daily Activities Help from Other: Don/Doff Regular Lower Body Clothings: None Help From Other: Bathing: Little Help From Other: Toileting: None Help From Other: Don/Doff Upper Body Clothings: None Help From Other: Grooming: None Help From Other: Eating Meals: None [facility] 6 Click - Daily Activities Score: 23 Assessment OT eval completed without medical complication. Pt presents from home where she was independent. Onassessment she presents with mild balance and endurance deficits and R LE weakness. Pt was able to ambulate household distances using a rolling walker with SBA and min verbal cues for walker management and she completed basic ADLs with set up to SBA. No further inpatient OT needs identified as she is near her functional baseline using compensatory techniques as needed from recent spinal surgery. Recommend she dc home with assistance from her spouse and family, use her rolling walker and follow up with outpatient PT. OT signing off. Thank you for the consult and please re-consult should the need arise. OT Findings: Impaired IADL performance, Impaired functional mobility Eval Complexity Occupational Profile: Brief history including review of medical/therapy records relating to presenting problem Performance Deficits: Instrumental activities of daily living (IADLs) Clinical Decision Making: Low Overall Eval complexity: Low OT Recommendations Discharge Destination: Home with assistance, Outpatient PT Discharge Equipment: Patient owns appropriate equipment Plan Patient no longer demonstrates need for inpatient occupational therapy services. Patient to be discharged from occupational therapy. Written by Susie Stanley on 07/31/25 at 11:04 AM. * H&P - Luis Oliver MD - 07/31/2025 12:17 AM EDT Images from the original note were not included. Subjective Chief complaint Right Sided Back Pain History Of Present Illness April Olvera is a 65 y.o. adult presenting with worsening back pain. Her medical history is notable for L4-L5 TLIF in May. She notes that her pain worsened approximately 3 days ago without any specific trauma or injury. She notes waking up with the pain. Patient's pain has continued to worsen though she is still mobile. Notes that the pain, when exacerbated with bending forward or walking, radiates into her right lower extremity. No fevers, chills, or headaches. Medical/Surgical/Social/Family History I have reviewed and updated the patient history. Travel History Relevant International Travel History: Travel Screening Question Response Have you been in contact with someone who was sick? No / Unsure Do you have any of the following new or worsening symptoms? None of these Have you traveled internationally or domestically in the last month? No Travel History Travel since 07/01/25 No documented travel since 07/01/25 Relevant Domestic Travel History: None Immunizations Reviewed Allergies Cephalexin, Codeine, Erythromycin, Penicillins, Sulfa drugs, Sulfacetamide, Morphine, Penicillin g,Statins, Amoxicillin, Azithromycin, Cetirizine, Conjugated estrogens, Estrogens, and Morphine and codeine Medications Current Medications[1] Objective Review of Systems As per HPI Physical Exam Constitutional: Appearance: She is not ill-appearing or diaphoretic. HENT: Nose: No congestion. Eyes: General: No scleral icterus. Pulmonary: Effort: No respiratory distress. Musculoskeletal: Comments: Straight leg raise positive on left leg to approximately 60 degrees radiating to right leg Straight leg positive on right leg to approximately 10 degrees radiating to right leg Neurological: Mental Status: She is alert. Mental status is at baseline. Psychiatric: Mood and Affect: Mood normal. Last Recorded Vitals Blood pressure 131/85, pulse 89, temperature 36.7 ??C (98 ??F), resp. rate 16, height 1.549 m (5' 1 ), weight 75.8 kg (167 lb), SpO2 94%. Results Review I have reviewed the latest lab and imaging results. Assessment & Plan Right sided sciatica Patient has persistently worsening lumbar back pain with nerve-like pain radiating into her right lower extremity to the level of the knee. Labs and imaging findings have been negative. Physical examination reveals acutely positive straight leg raise raising concern for sciatic-associated modality of pain. Discussed with the patient who agrees. PLAN: - Admit to ED OBS - q4hr vitals - Flexeril 5mg nightly - Avoid corticosteroids due to florid hyperglycemia - Lidocaine 5% patches for back Medically Ready for Discharge:Anticipated Tomorrow [1] Current Facility-Administered Medications Medication Dose Route Frequency Provider Last Rate Last Admin acetaminophen (Tylenol) tablet 650 mg 650 mg Oral q6h PRN Luis Oliver MD glucose (Glutose) 40 % oral gel 15-30 grams of glucose 15-30 grams of glucose Sublingual q15 min PRN Luis Oliver MD Or dextrose 10 % (D10W) bolus 125 mL 125 mL Intravenous q15 min PRN Luis Oliver MD Or dextrose 10 % (D10W) bolus 250 mL 250 mL Intravenous q15 min PRN Luis Oliver MD Or glucagon (human recombinant) injection 1 mg 1 mg Intramuscular q15 min PRN Luis Oliver MD insulin lispro (Admelog) 100 units/mL injection - Correction - Resistant Dose 0- 10 Units Subcutaneous TID with meals Luis Oliver MD insulin lispro (Admelog) injection - Correction - Nighttime Dose 0-3 Units Subcutaneous Twice at night Luis Oliver MD lidocaine (Lidoderm) 5 % patch 1 patch 1 patch Apply externally Once Jeferson Arias PA 1 patch at 07/30/25 8364 sodium chloride 0.9 % flush 10 mL 10 mL Intravenous q12h Luis Oliver MD And sodium chloride 0.9 % flush 10 mL 10 mL Intravenous PRN Luis Oliver MD Current Outpatient Medications Medication Sig Dispense Refill amLODIPine (Norvasc) 10 MG tablet Take 1 tablet by mouth daily. [Paused] aspirin 81 MG EC tablet Take 1 tablet by mouth daily. atorvastatin (Lipitor) 40 MG tablet Take 1 tablet by mouth every evening. bisacodyl (Bisacodyl EC) 5 MG EC tablet Take all 4 tablets at 4 PM on day before colonoscopy IF INSURANCE DOES NOT COVER, please inform pt to purchase OTC 4 tablet 0 busPIRone (Buspar) 10 MG tablet Take 1 tablet by mouth 3 times a day. citalopram (CeleXA) 40 MG tablet Take 1 tablet by mouth daily. cyanocobalamin 50 MCG tablet Take 1 tablet by mouth daily. cyclobenzaprine (Flexeril) 5 MG tablet Take 1 tablet by mouth 3 times a day as needed for muscle spasms. 30 tablet 0 ergocalciferol 1.25 MG (03782 UT) capsule Take 1 capsule by mouth 1 time per week. Evolocumab (Repatha SureClick) 140 MG/ML solution auto-injector autoinjector INJECT 1 DOSE UNDER THE SKIN EVERY 2 WEEKS fluticasone (Flonase) 50 MCG/ACT nasal spray Administer 2 sprays into each nostril daily. furosemide (Lasix) 20 MG tablet Take 1 tablet by mouth daily. insulin NPH-insulin regular (HumuLIN 70/30 KWIKPEN) (70-30) 100 UNIT/ML injection pen Inject 15 Units under the skin 2 (two) times a day before meals. Hold if eating <50% of meal. 15 mL 0 levothyroxine (Synthroid, Levoxyl) 137 MCG tablet Take 1 tablet by mouth daily. lisinopril 20 MG tablet Take 1 tablet by mouth daily. naloxone (Narcan) 4 mg/0.1 mL nasal spray 1. Give 1 spray in nostril for no/slow breathing or cannot wake after opioid use 2. Call 911 3. Repeat in other nostril if symptoms continue 1 each 0 pantoprazole (Protonix) 40 MG EC tablet Take 1 tablet by mouth 2 times a day. Do not crush, chew, or split. pen needle, diabetic 31G X 5 MM misc Use as directed with insulin pen. 100 each 11 polyethylene glycol (GoLYTELY) 236 g solution SEE PHARMACY NOTES FOR PATIENT LABEL INSTRUCTIONS- for Colonoscopy prep protocol 4000 mL 0 pregabalin (Lyrica) 150 MG capsule Take 1 capsule by mouth 2 times a day. 60 capsule 2 Semaglutide, 1 MG/DOSE, (Ozempic, 1 MG/DOSE,) 4 MG/3ML solution pen-injector Inject 1 mg under the skin 1 time per week. senna-docusate (Mona-Colace) 8.6-50 MG tablet Take 2 tablets by mouth 2 times a day. 20 tablet 0 Cosigned by Ady Phelan MD at 07/31/2025 3:57 AM EDT Associated attestation - Ady Phelan MD - 07/31/2025 3:57 AM EDT I saw and evaluated the patient with the resident/fellow. I discussed the case with the resident/fellow and agree with the findings and plan as documented. I personally spent a total of 35 minutes on this encounter. This time includes face to face with patient, counseling, and discussion and/or coordination of care. * ED Provider Notes - Jeferson Arias PA - 07/30/2025 7:03 PM EDT Images from the original note were not included. - HPI Chief Complaint Patient presents with Back Pain PIT NOTE April Olvera is a 65 y.o. adult who presents to the ED with Back pain. Pt arrives to the ED c/o back pain that is radiating to RLE. Pt describes the pain as a numb, tingling ,and burning sensation that onset 3 days ago but progressively got worse this afternoon. Pt reports her knee swells at night. Pt endorses h/o back surgery in January. Pt endorses taking a 300 mg naproxen this afternoon. Additional HPI: Agree with HPI as above. Patient states that she takes gabapentin at home however still has issues with pain. Physical therapy appointment pending in August. Has received pain medication here however states her pain has not improved at all. Denies any saddle paresthesia, urinary or fecal incontinence. Patient History Past Medical History[1] Surgical History[2] Family History[3] Social History[4] Allergies: Allergies[5] Physical Exam ED Triage Vitals [07/30/25 191] Temp Heart Rate Resp BP 36.7 ??C (98 ??F) 106 18 128/80 SpO2 Temp Source Heart Rate Source Patient Position 96 % Oral -- Sitting BP Location FiO2 (%) Right arm -- Physical Exam Vitals and nursing note reviewed. Constitutional: General: She is not in acute distress. Appearance: Normal appearance. HENT: Head: Normocephalic and atraumatic. Nose: No rhinorrhea. Mouth/Throat: Mouth: Mucous membranes are moist. Pharynx: Oropharynx is clear. Eyes: General: Right eye: No discharge. Left eye: No discharge. Conjunctiva/sclera: Conjunctivae normal. Pupils: Pupils are equal, round, and reactive to light. Pulmonary: Effort: Pulmonary effort is normal. No respiratory distress. Breath sounds: No stridor. Musculoskeletal: General: Normal range of motion. Cervical back: No rigidity. Skin: General: Skin is warm and dry. Neurological: Mental Status: She is alert and oriented to person, place, and time. Psychiatric: Mood and Affect: Mood normal. Behavior: Behavior normal. No data recorded ED Course & MDM - Assessment: 65 y.o. adult presents to ED with complaint of low back pain. It should be noted that the chronic conditions includes low back pain, which currently is not at goal therapy. This complicates the clinical picture because it Comorbidities: may be exacerbating symptoms Differential Diagnosis: Musculoskeletal pain, disc herniation, sciatica Labs and images obtained as below. Labwork found to be significant with a blood glucose of over 400. X-ray of lumbar spine was negative for acute findings. Patient was given multiple doses of pain medication including 5 mg oral oxycodone , 10 mg IV Toradol, 1 g methocarbamol. States her pain did not improve. Discussed with the attending, recommended admission to ED observation for further pain control consideration of MRI In order to fully explore the differential diagnosis the following treatments and tests were ordered: ED Medication Administration from 07/30/2025 1903 to 08/03/2025 1407 Date/Time Order Dose Route Action 07/30/20251947 EDT acetaminophen (Tylenol) tablet 1,000 mg 1,000 mg Oral Given 07/30/20251948 EDT ketorolac (Toradol) injection 10 mg 10 mg Intravenous Given 07/30/20252037 EDT methocarbamol (Robaxin) tablet 1,000 mg 1,000 mg Oral Given 07/30/20252138 EDT lidocaine (Lidoderm) 5 % patch 1 patch 1 patch Apply externally Medication Applied 07/30/20252138 EDT oxyCODONE (Roxicodone) immediate release tablet 5 mg 5 mg Oral Given 07/30/20259 EDT HYDROmorphone (Dilaudid) injection 0.5 mg 0.5 mg Intravenous Given 07/31/2025 0153 EDT acetaminophen (Tylenol) tablet 650 mg 650 mg Oral Given 07/31/2025 0153 EDT cyclobenzaprine (Flexeril) tablet 10 mg 10 mg Oral Given 07/31/2025 0258 EDT cyclobenzaprine (Flexeril) tablet 5 mg -- Oral Canceled Entry 07/31/2025 0417 EDT insulin lispro (Admelog) injection - Correction - Nighttime Dose 1 Units Subcutaneous Given 07/31/2025 0921 EDT insulin lispro (Admelog) 100 units/mL injection - Correction - Resistant Dose 4Units Subcutaneous Given 07/31/2025 0921 EDT lidocaine (Lidoderm) 5 % patch 1 patch 0 patch Apply externally Medication Removed 07/31/2025 0922 EDT sodium chloride 0.9 % flush 10 mL 10 mL Intravenous Given 07/31/2025 1155 EDT oxyCODONE (Roxicodone) immediate release tablet 5 mg 5 mg Oral Given 07/31/2025 1212 EDT insulin lispro (Admelog) 100 units/mL injection - Correction - Resistant Dose 4Units Subcutaneous Given 07/31/2025 1434 EDT predniSONE (Deltasone) tablet 40 mg 40 mg Oral Given 07/31/2025 1436 EDT sodium chloride 0.9 % flush 10 mL 10 mL Intravenous Given 07/31/2025 1730 EDT insulin lispro (Admelog) 100 units/mL injection - Correction - Resistant Dose -- Subcutaneous Canceled Entry All Other Orders Ordered Status Ordering Provider 07/31/25 0854 At bedtime Cristoferceled GINA ANTON 07/31/25 1133 POCT glucose meter PROCEDURE ONCE Final result CARL BISHOP 07/31/25 0854 3 times daily before meals Order ID Start Status Ordering Provider [id number] 07/31/25 1100 GINA Moore [id number] 07/31/25 1700 GINA Moore STEVEN M 07/31/25 0853 POCT glucose meter PROCEDURE ONCE Final result ADY PHELAN 07/31/25 0734 PT eval and treat Until therapy completed Completed GINA ANTON 07/31/25 0734 OT eval and treat Until therapy completed Completed GINA ANTON 07/31/25 0359 POCT glucose meter PROCEDURE ONCE Final result ADY PHELAN 07/30/252324 Every 4 hours Canceled LUIS OLIVER 07/31/25 1401 Ambulatory referral to Neurosurgery Comments: Patient has acutely worsening right lower extremity pain that is persistent despite muscle relaxers, lyrica, and toradol. Appointment is not until 09/09 - would like to be seen sooner Ordered GINA ANTON 07/30/252324 Until discontinued Comments: SCDs must be in place and turned on EXCEPT when ACTIVELY ambulating. Canceled LUIS OLIVER 07/30/252324 Until discontinued Canceled LUIS OLIVER 07/30/252324 Until discontinued Comments: If patient is able to take PO (does not have NPO order) give 15 -20 gm of carbohydrate plus protein snack. Options include: 3 leanne crackers (15 gm); 2 pkg. saltine crackers (16 gm); 4 oz cup applesauce (17 gm); ?? oz peanut butter,1 container (5 gm); 1 cup regular pudding (21 gm); or 1 cup sugar free pudding (10 gm). Recheck POC BG 30 minutes after administration and follow hypoglycemia prevention protocol. Canceled LUIS OLIVER 07/30/252324 Until discontinued Comments: If patient is able to take PO (does not have NPO order) give 15gm of fast acting carbohydrates. Options include 4 oz of juice (apple juice preferred in renal patients), 4 oz non-diet soda or 8 oz milk. Recheck POC BG 15 minutes after administration and retreat if necessary until POC BG is> 100. Canceled LUIS OLIVER 07/30/252324 Until discontinued Comments: After patient receives 25gm Dextrose and patient alert and can take PO (does not have NPOorder) give 30gm fast acting carbohydrates. Options include 8 oz of juice (apple juice preferred inrenal patients), 8 oz non-diet soda or 16 oz milk. Recheck POC BG 15 minutes after administration and repeat if necessary until POC BG >100. Canceled LUIS OLIVER 07/30/252324 As needed Comments: Recheck POC BG 15 minutes after any hypoglycemia treatment. Continue until POC BG is greater than 100 mg/dL. Canceled LUIS OLIVER 07/30/252324 Until discontinued Canceled LUIS OLIVER N 07/30/252324 Until discontinued Comments: temp greater than 100.4, SBP greater than 160/less than 90, MAPs greater than 110, less than 65, HR greater than 110/less than 50, SpO2 less than 88, Glucose less than 80 or greater than 250, chest pain = obtain ECG and notify provider Canceled BENITO, ALI N 07/30/252324 Insert peripheral IV Once Placed in And Linked Group Completed OLIVER, ALI N 07/30/252324 Saline lock IV Once Placed in And Linked Group Completed OLIVER, ALI N 07/30/252324 Continuous Canceled OLIVER ALI N 07/30/252324 Diet effective now Canceled LUIS OLIVER N 07/30/252231 Once Canceled JEFERSON ARIAS 07/30/252231 Once Canceled JEFERSON ARIAS A 07/30/251927 XR Lumbar Spine 2 or 3 Views Once Final result JEFERSON DUBOSE 07/30/251924 CMP STAT Final result JEFERSON DUBOSE 07/30/251924 CBC w/diff STAT Final result JEFERSON DUBOSE 07/30/251924 C-Reactive protein STAT Final result JEFERSON DUBOSE 07/30/251924 Sed rate, automated STAT Final result JEFERSON DUBOSE Clinical Impressions as of 08/03/25 1407 Right sided sciatica Social Determinates of Health Risks (including Economic Stability, Education and level of understanding, Healthcare access and quality and concerning social factors): Poor health literacy Ultimately, this patient was Was admitted (Admission) The encounter diagnosis was Right sided sciatica.. Patient believed to require admission for the listed diagnoses. The ED Observation service was consulted for admission and was agreeableto admit to ED Observation. Date/Time: 08/03/2025/2:07 PM Entered by Jamil Jensen acting as scribe for Dr. Jeferson Dubose. Attending Attestation: The documentation was recorded by Jamil Jensen, acting as scribe in my presence at the time of the encounter and accurately reflects the service I personally performed. ED Prescriptions Medication Sig Dispense Start Date End Date Auth. Provider predniSONE (Deltasone) 20 MG tablet Take 2 tablets by mouth daily for 4 days. Starting on 08/01 8 tablet 07/31/2025 08/04/2025 Gina Anton, DO Discharge Instructions - Continue regular home medications - check your blood glucose and use your diabetes medications as prescribed - if you fasting (morning) blood glucose is greater than 150 increase your insulin dose by 2 units - follow-up with [facility] outpatient When to seek medical care Seek medical care right away if: You can't stand or walk You have a temperature over 100.4??F ( 38.0??C), or as advised by your healthcare provider You have frequent, painful, or bloody urination You have severe abdominal pain You have a sharp, stabbing pain Your pain is constant You have pain, tingling, or numbness in your leg You have weakness in one or both legs or problems with bladder, bowel, or sexual function. These symptoms should be seen by a healthcare provider right away. This is because they can be caused by compression of the nerve bundle at the base of the spine. You feel pain in a new area of your back You notice that the pain isn???t decreasing after more than a week Your symptoms worsen or new symptoms develop Disposition Discharge Provider Care Team: CHAVA PRITCHARD ADULT [56] Are they the primary team?: Yes [1] AVS (Kiswahili Snapshot) - Printed 07/31/2025 Follow-Ups: Follow up with Tito Sue MD (Neurosurgery) Discharge Orders Ambulatory referral to Neurosurgery Authorized - [1] Past Medical History: Diagnosis Date Anxiety Class 1 obesity COVID-19 COVID-19 virus infection Diabetic neuropathy Diaphragmatic hernia without obstruction or gangrene 03/30/2024 Former tobacco use GERD (gastroesophageal reflux disease) H/O renal calculi Hypertension Hypothyroidism IBS (irritable bowel syndrome) Mixed dyslipidemia PVD (peripheral vascular disease) Sleep apnea TIA (transient ischemic attack) TIA (transient ischemic attack) Type 2 diabetes mellitus [2] Past Surgical History: Procedure Laterality Date BLADDER SURGERY N/A stimulator CARDIAC CATHETERIZATION N/A cardiac catheterization from [facility] CARPAL TUNNEL RELEASE Bilateral Neuroplasty Median Nerve At Carpal Tunnel from [facility] CHOLECYSTECTOMY N/A Cholecystectomy from [facility] COLONOSCOPY ELBOW SURGERY Right tennis elbow HERNIA REPAIR 09/18/2024 HYSTERECTOMY total KNEE SURGERY Bilateral arthroscopy LUMBAR FUSION OTHER SURGICAL HISTORY loop recorder SHOULDER SURGERY Right RCR TOTAL THYROIDECTOMY UPPER GASTROINTESTINAL ENDOSCOPY [3] Family History Problem [...] Never Used Substance Use Topics Alcohol use: Never Drug use: Never Comment: Drug use: No [...] comment field, Palpitations and Rash Heart races Jeferson Arias PA 08/03/25 1407 Cosigned by Jeferson Dubose MD at 08/03/2025 7:03 PM EDT Associated attestation - Jeferson Dubose MD - 08/03/2025 7:03 PM EDT I attest to being involved in more than half the total time in patient care. * ED Triage Notes - Sharon Joya RN - 07/30/2025 7:03 PM EDT Pt c/o back pain that is radiating to RLE described as numbness, tingling and burning sensation radiating starting 2-3 days ago but progressively got worse this afternoon. Denies any known trauma. Hxback surgery in January 2025 documented in this encounter Plan of Treatment Scheduled Referrals Name Type Priority Associated Diagnoses Order Schedule Ambulatory referral to Neurosurgery Outpatient Referral Routine Right sided sciatica Expected: 07/31/2025, Expires: 01/29/2027 documented as of this encounter Goals Goal Patient Goal Type Associated Problems Recent Progress Patient-Stated? Author Christine serna Goal Care Plan Autogenerated Problem No Radha Duran Goal Care Plan Autogenerated Problem No Josué Chavez documented as of this encounter Procedures Procedure Name Priority Date/Time Associated Diagnosis Comments POCT GLUCOSE METER UNSOLICITED RESULTS Routine 07/31/2025 11:33 AM EDT POCT GLUCOSE METER UNSOLICITED RESULTS Routine 07/31/2025 8:53 AM EDT POCT GLUCOSE METER UNSOLICITED RESULTS Routine 07/31/2025 3:59 AM EDT XR LUMBAR SPINE 2 OR 3 VIEWS STAT 07/30/2025 8:11 PM EDT SEDIMENTATION RATE, AUTOMATED STAT 07/30/2025 7:42 PM EDT CBC WITH AUTO DIFFERENTIAL STAT 07/30/2025 7:42 PM EDT C-REACTIVE PROTEIN, PLASMA STAT 07/30/2025 7:42 PM EDT COMPREHENSIVE METABOLIC PANEL, PLASMA STAT 07/30/2025 7:42 PM EDT documented in this encounter Results * (ABNORMAL) POCT glucose meter (07/31/2025 11:33 AM EDT) Pathologist [facility] POCT Glucose 244(H) 74 - 99 mg/dL 07/31/2025 11:34 AM EDT [facility] Comment:Accuracy of a glucos e result obtained from a capillary whole blood specimen relies upon adequate, non-compromised capillary blood flow. If the capillary glucose result is not consistent with the patient's clinical signs and symptoms, glucose testing should be repeated with either an arterial or venous sample on the glucometer or sent to the main labortory for testing. Comment 07/31/2025 11:34 AM EDT [facility] Social Insurance Administrator ID Sabiha Retana 07/31/2025 11:34 AM EDT [facility]ARE [facility] Device ID [id number] 07/31/2025 11:34 AM EDT [facility] Specimen Type POC Capillary 07/31/2025 11:34 AM EDT [facility] Blood Capillary blood specimen / Unknown 07/31/2025 11:33 AM EDT 07/31/2025 11:34 AM EDT us Carl Bishop MD LAB POINT OF CARE TE ST DOCKED DEVICE UNSOLICITED RESULTS Final Result [facility] [address] [place] [address] * (ABNORMAL) POCT glucose meter (07/31/2025 8:53 AM EDT) [facility] Signature POCT Glucose 301(H) 74 - 99 mg/dL 07/31/2025 8:55 AM EDT [facility] Comment:Accuracy of a glucos e result obtained from a capillary whole blood specimen relies upon adequate, non-compromised capillary blood flow. If the capillary glucose result is not consistent with the patient's clinical signs and symptoms, glucose testing should be repeated with either an arterial or venous sample on the glucometer or sent to the main labortory for testing. Comment 07/31/2025 8:55 AM EDT [facility] Social Insurance Administrator ID Sabiha Retana 07/31/2025 8:55 AM EDT [facility] Device ID [id number] 07/31/2025 8:55 AM EDT [facility] Specimen Type POC Capillary 07/31/2025 8:55 AM EDT [facility] Blood Capillary blood specimen / Unknown 07/31/2025 8:53 AM EDT 07/31/2025 8:55 AM EDT us Ady Phelan MD LAB POINT OF CARE TE ST DOCKED DEVICE UNSOLICITED RESULTS Final Result Performing Organization Address [facility] Co de Phone Number [facility] [address] [place] [address] * (ABNORMAL) POCT glucose meter (07/31/2025 3:59 AM EDT) POCT Glucose 296(H) 74 - 99 mg/dL 07/31/2025 4:01 AM EDT [facility] Comment:Accuracy of a glucos e result obtained from a capillary whole blood specimen relies upon adequate, non-compromised capillary blood flow. If the capillary glucose result is not consistent with the patient's clinical signs and symptoms, glucose testing should be repeated with either an arterial or venous sample on the glucometer or sent to the main labortory for testing. Comment 07/31/2025 4:01 AM EDT [facility] Social Insurance Administrator ID Erika Pozo 07/31/2025 4:01 AM EDT HEALTH[facility]ARE LAB Device ID [id number] 07/31/2025 4:01 AM EDT [facility] Specimen Type POC Capillary 07/31/2025 4:01 AM EDT [facility] Blood Capillary blood specimen / Unknown 07/31/2025 3:59 AM EDT 07/31/2025 4:01 AM EDT Ady Phelan MD LAB POINT OF CARE TE ST DOCKED DEVICE UNSOLICITED RESULTS Final Result Performing Organization Address [facility] Co de Phone Number [facility] [address] [place] [address] * XR Lumbar Spine 2 or 3 Views (07/30/2025 8:11 PM EDT) Anatomical Region Laterality Modality Spine, L-spine Computed Radiogr aphy Impressions 07/30/2025 8:29 PM EDT No acute findings. CRITICAL RESULT: No. COMMUNICATION: Per this written report. Drafted by Pavel Devlin MD on 07/30/2025 8:28 PM Final report signed by Pavel Devlin MD on 07/30/2025 8:29 PM Narrative 07/30/2025 8:29 PM EDT CLINICAL INDICATION: back pain; hx of fusion TECHNIQUE: XR LUMBAR SPINE 2 OR 3 VIEWS COMPARISON: None. FINDINGS: Posterior lumbar interbody fusion at L4-L5 as well as spinal stimulator in place. No hardware loosening or failure. Gated body heights are well-maintained. Procedure Note Pavel Devlin MD - 07/30/2025 CLINICAL INDICATION: back pain; hx of fusion TECHNIQUE: XR LUMBAR SPINE 2 OR 3 VIEWS COMPARISON: None. FINDINGS: Posterior lumbar interbody fusion at L4-L5 as well as spinal stimulator inplace. No hardware loosening or failure. Gated body heights arewell-maintained. IMPRESSION: No acute findings. CRITICAL RESULT: No. COMMUNICATION: Per this written report. Drafted by Pavel Devlin MD on 07/30/2025 8:28 PM Final report signed by Pavel Devlin MD on 07/30/2025 8:29 PM Jeferson Dubose MD IMG XR PROCEDURES Final Result * Sed rate, automated (07/30/2025 7:42 PM EDT) Sedimentation Rate 12 <30 mm/hr 2024 8:31 PM EDT [facility] Blood Venous blood specimen / Unknown Venipuncture / Unknown 07/30/2025 7:42 PM EDT 07/30/2025 7:46 PM EDT Jeferson Dubose MD LAB BLOOD ORDERABLES Fi nal Result [facility] [address] [place] [address] * C-Reactive protein (07/30/2025 7:42 PM EDT) CRP, Plasma 5.2 <=8.0 mg/L 07/30/2025 8:32 PM EDT [facility] Blood Venous blood specimen / Unknown Venipuncture / Unknown 07/30/2025 7:42 PM EDT 07/30/2025 7:46 PM EDT Narrative [facility] - 07/30/2025 8:32 PM EDT This CRP test is appropriate for assessment of infection, systemic inflammation and/or tissue injury. To assess cardiovascular disease risk order high sensitivity CRP (CRPH). us Jeferson Dubose MD LAB BLOOD ORDERABLES Fi nal Result [facility] [address] [place] [address] * CBC w/diff (07/30/2025 7:42 PM EDT) WBC Count 8.09 3.70 - 10.30 10*3/uL LAB HEMATOLOGY METHOD 07/30/2025 7:48 PM EDT [facility] RBC Count 4.33 3.90 - 5.20 10*6/uL LAB HEMATOLOGY METHOD 07/30/2025 7:48 PM EDT [facility] HGB 12.7 11.2 - 15.7 g/dL LAB HEMATOLOGY METHOD 07/30/2025 7:48 PM EDT [facility] HCT 38.6 34.0 - 45.0 % LAB HEMATOLOGY METHOD 07/30/2025 7:48 PM EDT [facility] Platelet Count 176 155 - 369 10*3/uL LAB HEMATOLOGY METHOD 07/30/2025 7:48 PM EDT [facility] MCV 89 79 - 98 fL LAB HEMATOLOGY METHOD 07/30/2025 7:48 PM EDT [facility] MCH 29.3 26.0 - 32.0 pg LAB HEMATOLOGY METHOD 07/30/2025 7:48 PM EDT [facility] MCHC 32.9 30.7 - 35.5 g/dL LAB HEMATOLOGY METHOD 07/30/2025 7:48 PM EDT [facility] RDW 13.1 11.5 - 14.5 % LAB HEMATOLOGY METHOD 07/30/2025 7:48 PM EDT [facility] MPV 9.7 8.8 - 12.5 fL LAB HEMATOLOGY METHOD 07/30/2025 7:48 PM EDT [facility] nRBC 0.0 <=0.0 per 100 WBCs LAB HEMATOLOGY METHOD 07/30/2025 7:48 PM EDT [facility] Differential Type Automated LAB HEMATOLOGY METHOD 07/30/2025 7:48 PM EDT [facility] Neutrophils % 66 % LAB HEMATOLOGY METHOD 07/30/2025 7:48 PM EDT [facility] Lymphocytes % 25 % LAB HEMATOLOGY METHOD 07/30/2025 7:48 PM EDT [facility] Monocytes % 5 % LAB HEMATOLOGY METHOD 07/30/2025 7:48 PM EDT [facility] Eosinophils % 2 % LAB HEMATOLOGY METHOD 07/30/2025 7:48 PM EDT [facility] Basophils % 1 % LAB HEMATOLOGY METHOD 07/30/2025 7:48 PM EDT [facility] Immature Granulocytes % 1 % LAB HEMATOLOGY METHOD 07/30/2025 7:48 PM EDT [facility] Neutrophils Absolute 5.42 1.60 - 6.10 10*3/uL LAB HEMATOLOGY METHOD 07/30/2025 7:48 PM EDT [facility] Lymphocytes Absolute 2.02 1.20 - 3.90 10*3/uL LAB HEMATOLOGY METHOD 07/30/2025 7:48 PM EDT [facility] Monocytes Absolute 0.43 0.30 - 0.90 10*3/uL LAB HEMATOLOGY METHOD 07/30/2025 7:48 PM EDT [facility] Eosinophils Absolute 0.13 0.00 - 0.50 10*3/uL LAB HEMATOLOGY METHOD 07/30/2025 7:48 PM EDT [facility] Basophils Absolute 0.05 0.00 - 0.10 10*3/uL LAB HEMATOLOGY METHOD 07/30/2025 7:48 PM EDT [facility] Immature Granulocytes Absolute 0.04 0.00 - 0.06 10*3/uL LAB HEMATOLOGY METHOD 07/30/2025 7:48 PM EDT [facility] Blood Venous blood specimen / Unknown Venipuncture / Unknown 07/30/2025 7:42 PM EDT 07/30/2025 7:46 PM EDT Narrative [facility] - 07/30/2025 7:48 PM EDT Therapeutic decision making should be based on absolute values, rather than percentages. us Jeferson Dubose MD LAB BLOOD ORDERABLES Fi nal Result [facility] [address] [place] [address] * (ABNORMAL) CMP (07/30/2025 7:42 PM EDT) Glucose, Plasma 432(H) 74 - 99 mg/dL 07/30/2025 8:32 PM EDT [facility] BUN, Plasma 16 8 - 23 mg/dL 07/30/2025 8:32 PM EDT [facility] Creatinine, Plasma 0.91 0.60 - 1.10 mg/dL 07/30/2025 8:32 PM EDT [facility] BUN/Creatinine Ratio 18 07/30/2025 8:32 PM EDT [facility] Sodium, Plasma 139 136 - 145 mmol/L 07/30/2025 8:32 PM EDT [facility] Potassium, Plasma 4.5 3.6 - 4.9 mmol/L 07/30/2025 8:32 PM EDT [facility] Chloride, Plasma 100 97 - 107 mmol/L 07/30/2025 8:32 PM EDT [facility] CO2, Plasma 22 22 - 29 mmol/L 07/30/2025 8:32 PM EDT [facility] Anion Gap 17(H) 6 - 16 mmol/L 07/30/2025 8:32 PM EDT [facility] Total Calcium, Plasma 9.3 8.9 - 10.2 mg/dL 07/30/2025 8:32 PM EDT [facility] Total Protein 6.8 6.3 - 7.9 g/dL 07/30/2025 8:32 PM EDT [facility] Albumin, Plasma 4.4 3.5 - 5.2 g/dL 07/30/2025 8:32 PM EDT [facility] AST, Plasma 25 10 - 35 U/L 07/30/2025 8:32 PM EDT [facility] ALT, Plasma 28 10 - 35 U/L 07/30/2025 8:32 PM EDT [facility] Alkaline Phosphatase, Plasma 118 46 - 142 U/L 07/30/2025 8:32 PM EDT [facility] Total Bilirubin, Plasma 0.5 0.2 - 1.1 mg/dL 07/30/2025 8:32 PM EDT [facility] eGFRcr 69.3 mL/min/1.7 3m*2 07/30/2025 8:32 PM EDT [facility] Comment:Reported eGFRcr in m L/min/1.73m2 is based the CKD-EPI 2020 equation that does not use a race coefficient. Blood Venous blood specimen / Unknown Venipuncture / Unknown 07/30/2025 7:42 PM EDT 07/30/2025 7:46 PM EDT us Jeferson Dubose MD LAB BLOOD ORDERABLES Fi nal Result [facility] [address] [place] [address] documented in this encounter Visit Diagnoses Diagnosis Right sided sciatica- Primary Sciatica Right sided sciatica Sciatica documented in this encounter Administered Medications Inactive Administered Medications - up to 3 most recent administrations Medication Order MAR Action Action Date Dose Rate Site acetaminophen (Tylenol) tablet 1,000 mg 1,000 mg, Oral, Once, 1 dose, On Sat07/30/25 at 1930, STAT Given 07/30/2025 7:48 PM EDT 1,000 mg acetaminophen (Tylenol) tablet 650 mg 650 mg, Oral, Every 6 hours PRN, Starting on Sat07/30/25 at 2319, Until 07/31/25 at 1730, STAT, Mild Plus Pain with CPOT DVPRS FLACC PAINAD NPASS NRS Calhoun-Colmenares Faces score of 1 or greater OR NIPS score 2 or greater, Moderate Severe Pain with CPOT score of 3 or greater OR FLACC PAINAD NPASS NRS Calhoun-Colmenares Faces score of 4 or greater OR DVPRS NIPS score of 5 or greater Given 07/31/2025 1:53 AM EDT 650 mg cyclobenzaprine (Flexeril) tablet 10 mg 10 mg, Oral, Nightly, First dose (after last modification) on 07/31/25 at 0150, Until Discontinued, Routine Given 07/31/2025 1:53 AM EDT 10 mg dextrose 10 % (D10W) bolus 125 mL 125 mL, Intravenous, Every 15 min PRN, Starting on Sat07/30/25 at 2323, Until 07/31/25 at 1730, Administer over 15 Minutes, Routine, low blood sugar BG 51-89 mg/dL dextrose 10 % (D10W) bolus 250 mL 250 mL, Intravenous, Every 15 min PRN, Starting on Sat07/30/25 at 2323, Until 07/31/25 at 1730, Administer over 15 Minutes, Routine, PRN low blood sugar BG =/<50 mg/dL glucagon (human recombinant) injection 1 mg 1 mg, Intramuscular, Every 15 min PRN, Starting on Sat07/30/25 at 2323, Until 07/31/25 at 1730, Routine, low blood sugar per Hypoglycemia Prevention and Treatment protocol glucose (Glutose) 40 % oral gel 15-30 grams of glucose 15-30 grams of glucose, Sublingual, Every 15 min PRN, Starting on Sat07/30/25 at 2323, Until 07/31/25 at 1730, Routine, low blood sugar, per Hypoglycemia Prevention and Treatment protocol HYDROmorphone (Dilaudid) injection 0.5 mg 0.5 mg, Intravenous, Once, 1 dose, On Sat07/30/25 at 2230, Routine Given 07/30/2025 10:49 PM EDT 0.5 mg insulin lispro (Admelog) 100 units/mL injection - Correction - Resistant Dose 0-10 Units, Subcutaneous, 3 times daily with meals, First dose on Sat07/31/25 at 0830, Until Discontinued, Routine Given 07/31/2025 12:12 PM EDT 4 Units Right Lower Abdomen Given 07/31/2025 9:21 AM EDT 4 Units Le ft Lower Abdomen insulin lispro (Admelog) injection - Correction - Nighttime Dose 0-3 Units, Subcutaneous, 2 times nightly (2100 & 0300), First dose on 07/31/25 at 0300, Until Discontinued, Routine Given 07/31/2025 4:17 AM EDT 1 Units Left Lower Abdomen ketorolac (Toradol) injection 10 mg 10 mg, Intravenous, Once, 1 dose, On Sat07/30/25 at 1930, STAT Given 07/30/2025 7:49 PM EDT 10 mg lidocaine (Lidoderm) 5 % patch 1 patch 1 patch, Apply externally, Once, 1 dose, On Sat07/30/25 at 2120, Administer over 12 Hours, STAT Medication Applied 07/30/2025 9:39 PM EDT 1 patch Back methocarbamol (Robaxin) tablet 1,000 mg 1,000 mg, Oral, Once, 1 dose, On Sat07/30/25 at 2035, Routine Given 07/30/2025 8:38 PM EDT 1,000 mg oxyCODONE (Roxicodone) immediate release tablet 5 mg 5 mg, Oral, Once, 1 dose, On Sat07/30/25 at 2120, STAT Given 07/30/2025 9:39 PM EDT 5 mg oxyCODONE (Roxicodone) immediate release tablet 5 mg 5 mg, Oral, Once, 1 dose, On 07/31/25 at 1055, STAT Given 07/31/2025 11:55 AM EDT 5 mg predniSONE (Deltasone) tablet 40 mg 40 mg, Oral, Once, 1 dose, On 07/31/25 at 1405, STAT Given 07/31/2025 2:34 PM EDT 40 mg sodium chloride 0.9 % flush 10 mL 10 mL, Intravenous, Every 12 hours, First dose on Sat07/30/25 at 2330, Until Discontinued, Routine Given 07/31/2025 2:36 PM EDT 10 mL Given 07/31/2025 9:22 AM EDT 10 mL sodium chloride 0.9 % flush 10 mL 10 mL, Intravenous, As needed, Starting on Sat07/30/25 at 2319, Until 07/31/25 at 1730, Routine, line care documented in this encounter Active and Recently Administered Medications Times are shown in EDT. Scheduled Medication Order 07/29/2025 07/30/2025 07/31/2025 acetaminophen (Tylenol) tablet 1,000 mg (COMPLETED) 1,000 mg, Oral, Once, 1 dose, On Sat07/30/25 at 1930, STAT 1948 (Given - Provider: Mat Jensen) cyclobenzaprine (Flexeril) tablet 10 mg 10 mg, Oral, Nightly, First dose (after last modification) on 07/31/25 at 0150, Until Discontinued, Routine 0153 (Given - Provid er: Jina Reno RN) HYDROmorphone (Dilaudid) injection 0.5 mg (COMPLETED) 0.5 mg, Intravenous, Once, 1 dose, On Sat07/30/25 at 2230, Routine 2249 (Given - Provider: Svetlana Stanley) insulin lispro (Admelog) 100 units/mL injection - Correction - Resistant Dose 0-10 Units, Subcutaneous, 3 times daily with meals, First dose on 07/31/25 at 0830, Until Discontinued, Routine 0921 (Given - Provid er: Ramy Huerta RN)1212 (Given - Provider: Ramy Huerta RN)1730 (Canceled Entry - Provider: Automatic Discharge Provider - Comment: Automatically canceled at discontinue of medication order) insulin lispro (Admelog) injection - Correction - Nighttime Dose 0-3 Units, Subcutaneous, 2 times nightly (2100 & 0300), First dose on 07/31/25 at 0300, Until Discontinued, Routine 0417 (Given - Provid er: Jina Reno RN) ketorolac (Toradol) injection 10 mg (COMPLETED) 10 mg, Intravenous, Once, 1 dose, On Sat07/30/25 at 1930, STAT 1949 (Given - Provider: Mat Jensen) lidocaine (Lidoderm) 5 % patch 1 patch (COMPLETED) 1 patch, Apply externally, Once, 1 dose, On Sat07/30/25 at 2120, Administer over 12 Hours, STAT 213 (Medication Applied - Provider: Svetlana Stanley) 0921 (Medication Removed - Provider: Ramy Huerta RN) methocarbamol (Robaxin) tablet 1,000 mg (COMPLETED) 1,000 mg, Oral, Once, 1 dose, On Sat07/30/25 at 2035, Routine 2037 (Given - Provider: Svetlana Stanley) oxyCODONE (Roxicodone) immediate release tablet 5 mg (COMPLETED) 5 mg, Oral, Once, 1 dose, On Sat07/30/25 at 2120, STAT 2139 (Given - Provider: Svetlana Stanley) oxyCODONE (Roxicodone) immediate release tablet 5 mg (COMPLETED) 5 mg, Oral, Once, 1 dose, On 07/31/25 at 1055, STAT 1155 (Given - Provid er: Ramy Huerta RN) predniSONE (Deltasone) tablet 40 mg (COMPLETED) 40 mg, Oral, Once, 1 dose, On 07/31/25 at 1405, STAT 1434 (Given - Provid er: Ramy Huerta RN) sodium chloride 0.9 % flush 10 mL(Linked Group 1) 10 mL, Intravenous, Every 12 hours, First dose on Sat07/30/25 at 2330, Until Discontinued, Routine 0922 (Given - Provid er: Ramy Huerta RN)1436 (Given - Provider: Ramy Huerta RN) PRN Medication Order 07/29/2025 07/30/2025 07/31/2025 acetaminophen (Tylenol) tablet 650 mg 650 mg, Oral, Every 6 hours PRN, Starting on Sat07/30/25 at 2319, Until 07/31/25 at 1730, STAT, Mild Plus Pain with CPOT DVPRS FLACC PAINAD NPASS NRS Calhoun-Colmenares Faces score of 1 or greater OR NIPS score 2 or greater, Moderate Severe Pain with CPOT score of 3 or greater OR FLACC PAINAD NPASS NRS Cal[place]oun-Colmenares Faces score of 4 or greater OR DVPRS NIPS score of 5 or greater 0153 (Given - Provid er: Jina Reno RN) dextrose 10 % (D10W) bolus 125 mL(Linked Group 2) 125 mL, Intravenous, Every 15 min PRN, Starting on Sat07/30/25 at 2323, Until 07/31/25 at 1730, Administer over 15 Minutes, Routine, low blood sugar BG 51-89 mg/dL dextrose 10 % (D10W) bolus 250 mL(Linked Group 2) 250 mL, Intravenous, Every 15 min PRN, Starting on Sat07/30/25 at 2323, Until 07/31/25 at 1730, Administer over 15 Minutes, Routine, PRN low blood sugar BG =/<50 mg/dL glucagon (human recombinant) injection 1 mg(Linked Group 2) 1 mg, Intramuscular, Every 15 min PRN, Starting on Sat07/30/25 at 2323, Until 07/31/25 at 1730, Routine, low blood sugar per Hypoglycemia Prevention and Treatment protocol glucose (Glutose) 40 % oral gel 15-30 grams of glucose(Linked Group 2) 15-30 grams of glucose, Sublingual, Every 15 min PRN, Starting on Sat07/30/25 at 2323, Until 07/31/25 at 1730, Routine, low blood sugar, per Hypoglycemia Prevention and Treatment protocol sodium chloride 0.9 % flush 10 mL(Linked Group 1) 10 mL, Intravenous, As needed, Starting on Sat07/30/25 at 2319, Until 07/31/25 at 1730, Routine, line care Linked Groups Order Group 1: Insert peripheral IV (COMPLETED) Once, On Sat07/30/25 at 2320, For 1 occurrence And Saline lock IV (COMPLETED) Once, On Sat07/30/25 at 2320, For 1 occurrence And sodium chloride 0.9 % flush 10 mLJump to med 10 mL, Intravenous, Every 12 hours, First dose on Sat07/30/25 at 2330, Until Discontinued, Routine And sodium chloride 0.9 % flush 10 mLJump to med 10 mL, Intravenous, As needed, Starting on Sat07/30/25 at 2319, Until 07/31/25 at 1730, Routine, line care Group 2: glucose (Glutose) 40 % oral gel 15-30 grams of glucoseJump to med 15-30 grams of glucose, Sublingual, Every 15 min PRN, Starting on Sat07/30/25 at 2323, Until 07/31/25 at 1730, Routine, low blood sugar, per Hypoglycemia Prevention and Treatment protocol Or dextrose 10 % (D10W) bolus 125 mLJump to med 125 mL, Intravenous, Every 15 min PRN, Starting on Sat07/30/25 at 2323, Until 07/31/25 at 1730, Administer over 15 Minutes, Routine, low blood sugar BG 51-89 mg/dL Or dextrose 10 % (D10W) bolus 250 mLJump to med 250 mL, Intravenous, Every 15 min PRN, Starting on Sat07/30/25 at 2323, Until 07/31/25 at 1730, Administer over 15 Minutes, Routine, PRN low blood sugar BG =/<50 mg/dL Or glucagon (human recombinant) injection 1 mgJump to med 1 mg, Intramuscular, Every 15 min PRN, Starting on Sat07/30/25 at 2323, Until 07/31/25 at 1730, Routine, low blood sugar per Hypoglycemia Prevention and Treatment protocol documented in this encounter Additional Health Concerns Active Problems Noted Date Diagnosed Date Autogenerated Problem 05/10/2025 Autogenerated Problem 05/05/2025 Assessment Noted Time A fall risk assessment has been complete d for the patient 07/21/2025 11:06 AM EDT A Body Mass Index follow-up plan has been documented for the patient 07/25/2025 5:10 PM EDT documented as of this encounter Care Teams Senior Technical Project Manager Relationship Specialty Start Date End Date Meli Gallardo APRN [id number] PCP - General 02/17/21 Tito Sue MD [address] [facility] [address] [place] [address] Surgeon Neurosurgery 07/21/25 documented as of this encounter
--- OUTSIDE RECORDS SUMMARY | 2025-08-02 12:45 | XMS_ITS | Encounter Summary ---
Author Organization Healthcare Address [address] [place] [address] Care Team Providers Care Blacktop Paver Operator Name Role Phone GallardoMeli barnett MIGUEL ANGEL Primary Care Provider [phone] Tito Sue MD Unavailable [phone] Reason for Visit * Reason Comments Shortness of Breath Encounter Details Date Type Department Care Team ([facility] st Contact Info) Description 08/02/2025 1:45 PM EDT - 08/02/2025 6:35 PM EDT Emergency [facility] Emergency Department [address] [place] [id number] Sav Paulino MD [address] [place] [address] Lenora Kang MD [address] [place] [address] Shortness of breath (Primary Dx); [...] week 10/02/2024 How often do you attend [facility] or islam services? Never 10/02/2024 Do you belong to any clubs o r organizations such as denominational groups, unions, fraternal or athletic groups, or [...] Recorded Patient Health Questionnaire-2 Score 0 02/24/2024 [facility] - Occupational Stress [...] any time in the past 12 m [facility], were you homeless or living in a custodial (including now)? No 05/18/2025 CAGE ASSESSMENT Answer [...] drink first t allison in the morning (EYE-APPLIED PSYCHOLOGY PROFESSOR) to steady your nerves or to get [...] Author [id number],[phone] 08/02/2025 2:25 PM EDT Misha Villaviecncio RN * Safety Interventions Question Answer Date [...] PM EDT Katia Martinez RN Notification Time [id number] 08/02/2025 3:58 PM EDT Katia Wang RN * Airway Question Answer Date of Assessment Author Airway ([facility]) [facility] 08/02/2025 3:53 PM EDT Katia Martinez RN * Breathing Question Answer Date of Assessment Author Breathing ([facility]) [facility] 08/02/2025 3:53 PM EDT Katia Taylor RN * Circulation Question Answer Date of Assessment Author Circulation ([facility]) [facility] 08/02/2025 3:53 PM EDT Katia Wang RN * Disability Question Answer Date of Assessment Author Disability ([facility]) [facility] 08/02/2025 3:53 PM EDT Katia Chaipn RN * Restart Vitals Timer Answer Date [...] 2:38 P M EDT Katia Wang RN Sikh Considerations None 08/02/2025 2:38 PM EDT Katia [...] 08/02/2025 2:38 PM EDT Katia Wang, EFE KINDER 1 Fall Risk Score 0 08/02/2025 2:38 PM EDT Katia Wang RN * [place] Suicide Severity Rating Scale Question Answer Date of Assessment Author Is patient awake, alert, and able to answer questions appropriately? Yes 08/02/2025 2:15 PM EDT Katia Taylor, EFE * Patient Belongings Placed in Locker Question Answer Date of Assessment Author Belongings at Bedside Retained by bob alves and/or family/legal self pay representative who assumes responsibility 08/02/2025 2:37 PM EDT Katia Wang RN * [place] Suicide Severity Rating Scale Question Answer Date [...] Villavicencio RN * Temp (in Celsius) for [place] Answer Date of Assessment Author 36.5 [...] PM EDT Katia Martinez RN Notification Time [id number] 08/02/2025 3:58 PM EDT Katia Wang RN [...] 2:38 P M EDT Katia Wang RN Sikh Considerations None 08/02/2025 2:38 PM EDT Katia [...] Bedside Retained by bob t and/or family/legal self pay representative who assumes responsibility 08/02/2025 2:37 PM EDT Katia Wang RN * [place] Suicide Severity Rating Scale Question Answer Date [...] 2 08/02/2025 12:02 PM EDT Ever Oneal forming tube selector Complete Triage complete 08/02/2025 1:16 PM EDT [...] PM EDT Katia Wang RN [place] Time [id number] 08/02/2025 3:5 8 PM EDT Katia Wang, RN * Airway Question Answer Entry Date Author Airway (L) [facility] 08/02/2025 3:53 PM EDT Katia Martinez RN * Breathing Question Answer Entry Date Author Breathing ([facility]) [facility] 08/02/2025 3:53 PM EDT Katia Taylor RN * Circulation Question Answer Entry Date Author Circulation ([facility]) [facility] 08/02/2025 3:53 PM EDT Katia Wang RN * Disability Question Answer Entry Date Author Disability (L) [facility] 08/02/2025 3:53 PM EDT Katia Chapin RN [...] 2:38 PM EDT Katia Wang, EFE * [place] Suicide Severity Rating Scale Question Answer Entry Date Author Is patient awake, alert, and able to answer questions appropriately? Yes 08/02/2025 2:15 PM EDT Katia Taylor, EFE * Patient Belongings Placed in Locker Question Answer Entry Date Author Belongings at Bedside Retained by bob alves and/or family/legal self pay representative who assumes responsibility 08/02/2025 2:37 PM EDT Katia Wang, EFE * TRACTOR OPERATOR Information Question Answer Entry Date Author Mode of Arrival Ambulance 08/02/2025 12:00 PM EDT Ever Zavala RN * [place] Suicide Severity Rating Scale Question Answer Entry [...] Villavicencio RN * Temp (in Celsius) for [place] IV Answer Entry Date Author 36.5 08/02/2025 [...] spasms. 30 tablet 06/15/2025 ergocalciferol 1.25 MG (21393 UT) capsule Take 1 capsule by mouth [...] Patient presents with ??? Shortness of Breath [facility] NOTE April Olvera is a 65 y.o. [...] and urinary symptoms. History provided by: Patient returned materials inspector used: No MAIN ED NOTE//Duncan Baker MD: I assumed full responsibility for this patient after transfer to Main ED from [facility]. I personally performed my own history, ROS, and physical. I agree with the above [facility] documentation with the following additions/exceptions: April Olvera [...] Neuroplasty Median Nerve At Carpal Tunnel from [facility] ??? CHOLECYSTECTOMY N/A Cholecystectomy from [facility] ??? COLONOSCOPY ??? ELBOW SURGERY Right tennis [...] Heart races Duncan Baker MD Resident 08/02/25 [id number] Cosigned by Sav Paulino MD at 08/08/2025 [...] 8 <14 ng/L 08/02/2025 3:11 PM EDT [facility] Troponin Delta Interpretation Not Calculated 08/02/2025 3:11 PM EDT [facility] Comment:Specimen not collect ed within acceptable timeframe. Delta will not be calculated. Blood Venous blood specimen / Unknown Venipuncture / Unknown 08/02/2025 2:27 PM EDT 08/02/2025 2:37 PM EDT Jatin Matos MD LAB BLOOD ORDERABLES Final Result [facility] [address] [place] [address] * XR Chest 1 View (08/02/2025 2:14 [...] (ABNORMAL) T4, free (08/02/2025 12:28 PM EDT) [facility] Free T4, Plasma 0.7(L) 0.8 - 1.7 ng/dL 08/02/2025 2:58 PM EDT [facility] Blood Venous blood specimen / Unknown Venipuncture / Unknown 08/02/2025 12:28 PM EDT 08/02/2025 12:31 PM EDT us Sav Paulino MD LAB BLOOD ORDERABLES Final Result [facility] [address] [place] [address] * BNP (08/02/2025 12:28 PM EDT) Pathologist [facility] N-Terminal, PROBNP, Plasma <50 0 - 899 pg/mL 08/02/2025 1:10 PM EDT [facility] Blood Venous blood specimen / Unknown Venipuncture / Unknown 08/02/2025 12:28 PM EDT 08/02/2025 12:31 PM EDT us Jatin Matos MD LAB BLOOD ORDERABLES Final Result Performing Organization Address City/[facility]/ZIP Co de Phone Number [facility] [address] [place] [address] * (ABNORMAL) TSH (08/02/2025 12:28 PM EDT) Thyroid Stimulating Hormone, Plasma 17.12(H) 0.40 - 4.20 uIU/mL 08/02/2025 1:10 PM EDT [facility] Blood Venous blood specimen / Unknown Venipuncture / Unknown 08/02/2025 12:28 PM EDT 08/02/2025 12:31 PM EDT us Jatin Matos MD LAB BLOOD ORDERABLES Final Result Performing Organization Address City/[facility]/ZIP Co de Phone Number [facility] [address] [place] [address] * (ABNORMAL) Lactic acid, venous (08/02/2025 12:28 PM EDT) Pathologist [facility] Lactate, Venous, Whole Blood 3.2(H) 0.5 - 2.2 mmol/L LAB HEMATOLOGY METHOD 08/02/2025 12:34 PM EDT [facility] Blood Venous blood specimen / Unknown Venipuncture / Unknown 08/02/2025 12:28 PM EDT 08/02/2025 12:34 PM EDT us Jatin Matos MD LAB BLOOD ORDERABLES Final Result Performing Organization Address City/[facility]/ZIP Co de Phone Number [facility] [address] [place] [address] * (ABNORMAL) CBC w/diff (08/02/2025 12:28 PM EDT) WBC Count 5.86 3.70 - 10.30 10*3/uL LAB HEMATOLOGY METHOD 08/02/2025 12:36 PM EDT [facility] RBC Count 4.88 3.90 - 5.20 10*6/uL LAB HEMATOLOGY METHOD 08/02/2025 12:36 PM EDT [facility] HGB 14.2 11.2 - 15.7 g/dL LAB HEMATOLOGY METHOD 08/02/2025 12:36 PM EDT [facility] HCT 43.2 34.0 - 45.0 % LAB HEMATOLOGY METHOD 08/02/2025 12:36 PM EDT [facility] Platelet Count 175 155 - 369 10*3/uL LAB HEMATOLOGY METHOD 08/02/2025 12:36 PM EDT [facility] MCV 89 79 - 98 fL LAB HEMATOLOGY METHOD 08/02/2025 12:36 PM EDT [facility] MCH 29.1 26.0 - 32.0 pg LAB HEMATOLOGY METHOD 08/02/2025 12:36 PM EDT [facility] MCHC 32.9 30.7 - 35.5 g/dL LAB HEMATOLOGY METHOD 08/02/2025 12:36 PM EDT [facility] RDW 13.2 11.5 - 14.5 % LAB HEMATOLOGY METHOD 08/02/2025 12:36 PM EDT [facility] MPV 10.0 8.8 - 12.5 fL LAB HEMATOLOGY METHOD 08/02/2025 12:36 PM EDT [facility] nRBC 0.0 <=0.0 per 100 WBCs LAB HEMATOLOGY METHOD 08/02/2025 12:36 PM EDT [facility] Differential Type Automated LAB HEMATOLOGY METHOD 08/02/2025 12:36 PM EDT [facility] Neutrophils % 62 % LAB HEMATOLOGY METHOD 08/02/2025 12:36 PM EDT [facility] Lymphocytes % 29 % LAB HEMATOLOGY METHOD 08/02/2025 12:36 PM EDT [facility] Monocytes % 5 % LAB HEMATOLOGY METHOD 08/02/2025 12:36 PM EDT [facility] Eosinophils % 2 % LAB HEMATOLOGY METHOD 08/02/2025 12:36 PM EDT [facility] Basophils % 1 % LAB HEMATOLOGY METHOD 08/02/2025 12:36 PM EDT [facility] Immature Granulocytes % 1 % LAB HEMATOLOGY METHOD 08/02/2025 12:36 PM EDT [facility] Neutrophils Absolute 3.73 1.60 - 6.10 10*3/uL LAB HEMATOLOGY METHOD 08/02/2025 12:36 PM EDT [facility] Lymphocytes Absolute 1.69 1.20 - 3.90 10*3/uL LAB HEMATOLOGY METHOD 08/02/2025 12:36 PM EDT [facility] Monocytes Absolute 0.27(L) 0.30 - 0.90 10*3/uL LAB HEMATOLOGY METHOD 08/02/2025 12:36 PM EDT [facility] Eosinophils Absolute 0.09 0.00 - 0.50 10*3/uL LAB HEMATOLOGY METHOD 08/02/2025 12:36 PM EDT [facility] Basophils Absolute 0.04 0.00 - 0.10 10*3/uL LAB HEMATOLOGY METHOD 08/02/2025 12:36 PM EDT [facility] Immature Granulocytes Absolute 0.04 0.00 - 0.06 10*3/uL LAB HEMATOLOGY METHOD 08/02/2025 12:36 PM EDT [facility] Blood Venous blood specimen / Unknown Venipuncture / Unknown 08/02/2025 12:28 PM EDT 08/02/2025 12:31 PM EDT Narrative [facility] - 08/02/2025 12:36 PM EDT Therapeutic decision making should be based on absolute values, rather than percentages. us Jatin Matos MD LAB BLOOD ORDERABLES Final Result [facility] [address] [place] [address] * Troponin now and 120 min (08/02/2025 12:28 PM EDT) Troponin T, High Sensitivity, 0 Hour 9 <14 ng/L 08/02/2025 1:10 PM EDT [facility] Blood Venous blood specimen / Unknown Venipuncture / Unknown 08/02/2025 12:28 PM EDT 08/02/2025 12:31 PM EDT us Jatin Matos MD LAB BLOOD ORDERABLES Final Result [facility] [address] [place] [address] * (ABNORMAL) CMP (08/02/2025 12:28 PM EDT) Glucose, Plasma 290(H) 74 - 99 mg/dL 08/02/2025 1:10 PM EDT [facility] BUN, Plasma 16 8 - 23 mg/dL 08/02/2025 1:10 PM EDT [facility] Creatinine, Plasma 0.68 0.60 - 1.10 mg/dL 08/02/2025 1:10 PM EDT [facility] BUN/Creatinine Ratio 24 08/02/2025 1:10 PM EDT [facility] Sodium, Plasma 140 136 - 145 mmol/L 08/02/2025 1:10 PM EDT [facility] Potassium, Plasma 4.7 3.6 - 4.9 mmol/L 08/02/2025 1:10 PM EDT [facility] Chloride, Plasma 99 97 - 107 mmol/L 08/02/2025 1:10 PM EDT [facility] CO2, Plasma 27 22 - 29 mmol/L 08/02/2025 1:10 PM EDT [facility] Anion Gap 14 6 - 16 mmol/L 08/02/2025 1:10 PM EDT [facility] Total Calcium, Plasma 9.9 8.9 - 10.2 mg/dL 08/02/2025 1:10 PM EDT [facility] Total Protein 7.2 6.3 - 7.9 g/dL 08/02/2025 1:10 PM EDT [facility] Albumin, Plasma 4.5 3.5 - 5.2 g/dL 08/02/2025 1:10 PM EDT [facility] AST, Plasma 29 10 - 35 U/L 08/02/2025 1:10 PM EDT [facility] Comment:Hemolyzed, result ma y be falsely increased. ALT, Plasma 31 10 - 35 U/L 08/02/2025 1:10 PM EDT [facility] Alkaline Phosphatase, Plasma 102 46 - 142 U/L 08/02/2025 1:10 PM EDT [facility] Total Bilirubin, Plasma 0.4 0.2 - 1.1 mg/dL 08/02/2025 1:10 PM EDT [facility] eGFRcr 95.6 mL/min/1.7 3m*2 08/02/2025 1:10 PM EDT [facility] Comment:Reported eGFRcr in m L/min/1.73m2 is based the CKD-EPI 2020 equation that does not use a race coefficient. Blood Venous blood specimen / Unknown Venipuncture / Unknown 08/02/2025 12:28 PM EDT 08/02/2025 12:31 PM EDT us Jatin Matos MD LAB BLOOD ORDERABLES Final Result Performing Organization Address City/[facility]/ZIP Co de Phone Number [facility] [address] [place] [address] * EKG now - STAT (adult) (08/02/2025 12:05 PM EDT) EKG DIAGNOSIS CLASS Abnormal MUSE ECG Ventricular Rate 86 BPM MUSE ECG Atrial Rate 86 BPM MUSE ECG DE Interval 136 ms MUSE ECG QRSD Interval 86 ms MUSE ECG QT Interval 402 ms MUSE ECG QTC Interval 481 ms MUSE ECG P [place] 52 degrees MUSE ECG R [place] -6 degrees MUSE ECG T Wave [place] 11 degrees MUSE ECG Diagnosis Normal sinus rhythm MUSE ECG Diagnosis Poor R-wave progression MUSE ECG Diagnosis Nonspecific T wave abnormality MUSE ECG Diagnosis Abnormal ECG MUSE ECG Diagnosis MUSE ECG Diagnosis Confirmed by Reji Osborn ([id number]) on 08/02/2025 12:21:05 PM MUSE ECG 08/02/2025 [...] (New Bag - Prov ider: Katia Wang, EFE)[id number] (Stopped - Provider: Merry Villavicencio RN) documented [...] documented as of this encounter Care Teams Blacktop Paver Operator Relationship Specialty Start Date End Date Meli Gallardo APRN [id number] PCP - General 02/17/21 Tito Sue MD [address] [place] [address] Surgeon Neurosurgery 07/21/25 documented as of this encounter
--- OUTSIDE RECORDS SUMMARY | 2025-08-12 16:19 | XMS_ITS | Encounter Summary ---
Author Organization Healthcare Address [address] [place] [address] Care Team Providers Care Performance Improvement Consultant Name Role Phone GallardoMeli barnett MIGUEL ANGEL Primary Care Provider [phone] Tito Sue MD Unavailable [phone] Encounter Details Date Type Department Care Team (Latest Contact Info) Description 08/12/2025 4:19 PM EST - 08/12/2025 11:59 PM EST Hospital Encounter Cardiac Imaging [address] [place] [address] History of loop recorder Discharge Disposition: Home or Self Care Social [...] often do you attend chur ch or orthodox services? Never 10/02/2024 Do you belong to any clubs o r organizations such as latter-day groups, unions, fraternal or athletic groups, or [...] Recorded Patient Health Questionnaire-2 Score 0 02/24/2024 [facility] - Occupational Stress [...] any time in the past 12 m [facility], were you homeless or living in a snf (including now)? No 05/18/2025 CAGE ASSESSMENT Answer [...] drink first t allison in the morning (EYE-FRUIT SPRAYER) to steady your nerves or to get [...] spasms. 30 tablet 06/15/2025 ergocalciferol 1.25 MG (17543 UT) capsule Take 1 capsule by mouth [...] 2 times a day. 20 tablet 05/19/2025 documented as of this encounter Plan of Treatment Not on file documented as of this encounter Goals Goal Patient Goal Type Associated Problems Recent Progress Patient-Stated? Author Christine serna Goal Care Plan Autogenerated Problem No Radha Duran Goal Care Plan Autogenerated Problem No Josué Chavez documented as of this encounter Procedures Procedure Name Priority Date/Time Associated Diagnosis Comments CARDIAC DEVICE CHECK - REMOTE - LOOP RECORDER (ILR) Routine 08/12/2025 4:36 PM EST History of loop recorder documented in this encounter Results * CARDIAC DEVICE CHECK - REMOTE - LOOP RECORDER (ILR) (08/12/2025 4:36 PM EST) Anatomical Region Laterality Modality Other Narrative 08/13/2025 11:57 AM EST Images from the original result were not included. [facility] - [facility] Remote CIED Report Name: April Olvera Date: 08/13/2025 : 1960 Age: 65 y.o. Reporting period: Reporting period is the last 31 days, with at least 10 days of remote monitoring. Interim reports, if any, reviewed and addressed previously; see remote alert entries for more details. Device: Psychiatric Cns: [employer] implantable utilization review nurse (ICM) Battery: Status: Evaluation: Presenting rhythm: sinus with 1:1 intrinsic conduction to the ventricle. Trends Rate Histograms : demonstrate good rate distribution. Demonstrates appropriate sensing: Yes Arrhythmias: No new arrhythmia of significance since last CIED evaluation. Summary CIED functioning as expected, with given programming and data. Erica Benito APRN CV IMPLANTABLE CARDIAC DEV ICE PROCEDURES Final Result documented in this encounter Visit Diagnoses Diagnosis History of loop recorder documented in this encounter Additional Health Concerns Active Problems Noted Date Diagnosed Date Autogenerated Problem 05/10/2025 Autogenerated Problem 05/05/2025 Assessment Noted Time A fall risk assessment has been complete d for the patient 07/21/2025 11:06 AM EDT A Body Mass Index follow-up plan has been documented for the patient 07/25/2025 5:10 PM EDT documented as of this encounter Care Teams Performance Improvement Consultant Relationship Specialty Start Date End Date Meli Gallardo APRN [id number] PCP - General 02/17/21 Tito Sue MD [address] [place] [address] Surgeon Neurosurgery 07/21/25 documented as of this encounter
--- OUTSIDE RECORDS SUMMARY | 2025-09-15 13:10 | XMS_ITS | Encounter Summary ---
Author Organization Healthcare Address [address] [place] [address] Care Team Providers Care Continuous Wave Operator Name Role Phone GallardoMeli barnett MIGUEL ANGEL Primary Care Provider [phone] Tito Sue MD Unavailable Encounter Details Date Type Department Care Team (Latest Contact Info) Description 09/15/2025 1:10 PM EST - 09/15/2025 11:59 PM EST Hospital Encounter Cardiac Imaging [address] [place] [address] History of loop recorder Discharge Disposition: Home [...] often do you attend chur ch or jewish services? Never 10/02/2024 Do you belong to any clubs o r organizations such as muslim groups, unions, fraternal or athletic groups, or [...] Recorded Patient Health Questionnaire-2 Score 0 02/24/2024 [facility] - Occupational Stress Questionnaire Answer Date [...] any time in the past 12 m [facility], were you homeless or living in a mcc (including now)? 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 30 tablet 06/15/2025 ergocalciferol 1.25 MG (76722 UT) capsule Take 1 capsule by mouth [...] Care Plan Autogenerated Problem No Radha Duran Autojesus serna Goal Care Plan Autogenerated Problem No Josué Chavez documented as of this encounter Procedures Procedure Name Priority Date/Time Associated Diagnosis Comments CARDIAC DEVICE CHECK - REMOTE - LOOP RECORDER (ILR) Routine 09/15/2025 4:39 PM EST History of loop recorder documented in this encounter Results * CARDIAC DEVICE CHECK - REMOTE - LOOP RECORDER (ILR) (09/15/2025 4:39 PM EST) Anatomical Region Laterality Modality Other Narrative 09/15/2025 4:50 PM EST Implantable loop recorder (ILR) interrogation. Battery remaining in service adequate. EGM's reviewed against indication for implant and diagnosis, found to be unremarkable. Presenting rhythm is sinus. Symp event 08/29, egm demonstrates sinus rhythm. Erica Gardiner Jigna MICHELLE CV IMPLANTABLE CARDIAC DEV ICE PROCEDURES Final [...] documented as of this encounter Care Teams Continuous Wave Operator Relationship Specialty Start Date End Date Meli Gallardo APRN [id number] PCP - General 02/17/21 Tito Sue MD [address] [place] [address] Surgeon Neurosurgery 07/21/25 documented as of this encounter
[2025-09-29] VITALS (32 sets, daily range): BP systolic 121–225; BP diastolic 70–120; PULSE 80–106; RESP 13–23; TEMP 36.8–36.9; O2SAT 92–97; BMI 32.1
--- NOTE | 2025-09-29 10:52 | ECG_ITS ---
APPROVED REPORT Exam: Resting ECG HR:82 bpm ECG Measurements Heart Rate 82 AXES NM 136 P 35 QRSd 92 QRS 2 QT 372 T -5 QTc 410 Conclusion SINUS RHYTHM LOW QRS VOLTAGE IN PRECORDIAL LEADS [QRS DEFLECTION < 1.0 mV IN CHEST LEADS] PATTERN CONSISTENT WITH PULMONARY DISEASE ABNORMAL ECG UNCONFIRMED REPORT normal sinus rhythm. No STEMI Electronically signed by : HAVEN ORTEZ, 09/29/2025 15:59:44
--- NOTE | 2025-09-29 11:01 | XR_ITS ---
FINAL REPORT CLINICAL HISTORY: short of breath COMPARISON: None FINDINGS: A single frontal view of the chest was obtained. No acute pulmonary opacity is present. There is no evidence of effusion or pneumothorax. Mediastinum is unremarkable. Heart size is normal. IMPRESSION: No acute abnormality. Reviewed, Interpreted and Dictated by Enmanuel Gonzalez MD Transcribed by Lenora Morel Authenticated and . [facility]
--- NOTE | 2025-09-29 11:05 | ED_ITS ---
<Statement entered by Ron Fontanez MD - 09/29/25 15:49> Ron Fontanez MD: I was consulted by the RICARDO, and we discussed the complexity of the problems being addressed. I approve the treatment and management plan for this patient's care in the emergency department, thus performing a substantive portion of the medical decision making. Discharge Plan Disposition Patient Disposition: Admitted Condition: Fair Clinical Impressions Clinical Impression: Chest pain, Pulmonary embolism Discharge ED Provider: Ron Fontanez [facility] General Chief Complaint: Chest Pain Stated Complaint: chest pain Time Seen by Provider: 09/29/25 10:56 Mode of Arrival: Ambulatory Source of Information: Patient Description of Symptoms (Recalled from ER Triage Doc. by RN): pt c/o L sided chest/neck pain. She reports the pain started at 0700. Pain is intermittant and worse with ambulation. pt states her pain is 6/10. pt is hypertensive at 225/120 History of Present Illness HPI narrative: 65-year-old female presents to the ED today with complaint of chest pain that is on her left side of her chest that started about 7 AM. Says hurts worse with exertion. She does have occasional shortness of air with it. No nausea or vomiting. She does have elevated blood pressure here in the ED 225/120. She typically takes her blood pressure medicine at night. She says she just overall feels bad. She has no other associated signs or symptoms. Related Data Home Medications ?Medication ?Instructions ?Recorded ?Confirmed albuterol sulfate 90 mcg/actuation 2 puff inhalation Q 4HP PRN wheezing 09/29/25 09/29/25 aerosol inhaler buspirone 10 mg tablet 10 mg PO TID 09/29/25 cyclobenzaprine 5 mg tablet 5 mg PO TIDP PRN muscle sp asm 09/29/25 09/29/25 ergocalciferol (vitamin D2) 1,250 1,250 mcg PO WEEKLY 09/29/25 09/29/25 mcg (50,000 unit) capsule insulin NPH-regular 70-30 U-100 20 unit SQ BID 5 09/29/25 insulin 100 unit/mL subcutaneous pen (Humulin 70/30 U-100 KwikPen) levothyroxine 150 mcg tablet 150 mcg PO DAILY 09/29/25 09/29/25 lisinopril 20 mg tablet 20 mg PO DAILY 09/29/2509/07 semaglutide 1 mg/dose (4 mg/3 mL) 1 mg SQ WEEKLY 09/2909/29/25 subcutaneous pen injector (Ozempic) Allergies Allergy/AdvReac Type Severity Reaction Status Date / Time cephalexin (From Keflex) Allergy Intermediate I-RASH Verified 09/29/25 11:04 cetirizine (From Zyrtec) Allergy Intermediate I-RASH Verified 09/29/25 11:04 codeine Allergy Intermediate RAPID Verified 09/29/25 11:04 HEART RATE erythromycin base (From Allergy Intermediate I-RASH Verified 09/29/25 11:04 E-Mycin) estrogens, conjugated (From Allergy Intermediate I-RASH Verified 09/29/25 11:04 Premarin) morphine Allergy Intermediate RAPID Verified 09/29/25 11:04 HEART RATE Penicillins Allergy Intermediate I-RASH Verified 09/29/25 11:04 Sulfa (Sulfonamide Allergy Intermediate I-RASH Verified 09/29/25 11:04 Antibiotics) [facility] Disclaimer: The information contained in this section may have been updated after the patient was seen, as this information can be updated by other users. Medical History (Updated 09/29/25 @ 14:40 by Derek Lizarraga MD) Diabetes Hypothyroid Hypertension Surgical History No significant past surgical history Family History No significant family history Social History Smoking Status: Never smoker alcohol intake: never current occupational status: retired Travel in the last 8 weeks?: None Have you lived/traveled outside US in past 30 days?: No Contact w/someone who lives/traveled outside US past 30 days?: No Exposure to someone with infectious disease in past 14 days?: No Do you have a fever (greater than 100.4 F or 38 C)?: No Have you tested positive for COVID-19?: No Exposed to someone with COVID-19 in past 14 days?: No Do you have a sore throat?: No Do you have a cough?: No Do you have any weakness?: No Do you have any diarrhea?: No Are you experiencing any unusual bleeding?: No Do you have any muscle aches/pain?: No Do you have any abdominal pain?: No Are you experiencing loss of taste or smell?: No Other Medical History Have you received the Flu Vaccine for this season: No Have you received the Pneumonia Vaccine: No ROS Obtained: Yes Systems reviewed as appropriate & no additional complaints except as documented Constitutional Constitutional: Reports as per HPI Physical Exam General General appearance: alert Head Head exam: normocephalic Eye Eye exam: Present normal appearance and PERRL ENT ENT exam: Present normal exam and mucous membranes moist Neck Neck exam: Present trachea midline Chest Chest inspection: Present symmetric chest wall rise Respiratory Respiratory exam: Present normal lung sounds bilaterally Cardiovascular Cardiovascular exam: Present regular rate, normal rhythm, normal heart sounds, +S1 and +S2 Abdominal Exam Abdominal exam: Present soft and normal bowel sounds Extremities Exam Extremities exam: Present full ROM and normal capillary refill Back Exam Back exam: Present full ROM Neurological Exam Neurological exam: Present alert and oriented X3 Psychiatric Psychiatric exam: Present normal mood Skin Skin exam: Present warm and dry HEART Score HEART Score HEART Score assessment performed?: Yes History (anamnesis): Moderately suspicious ECG: Non-specific disturbance Age: >65 years Risk factors: 3 or more risk factors Troponin: </= normal limit HEART Score: 6 Critical Care Critical Care Time Critical Care Time: No Medical Decision Making Elroy Inquiry Pt receiving controlled substance: No Elroy was queried for this patient: No Vital Signs Vital Signs: 09/29/25 10:49 09/29/25 11:00 09/29/25 11:41 Temperature 98.2 F Temperature Source Oral Pulse Rate 86 Pulse Rate [Left] 84 Respiratory Rate 19 19 14 Blood Pressure 201/115 H 151/83 H Blood Pressure [Right Arm] 225/120 H Blood Pressure Mean Blood Pressure Mean [Right Arm] 155 Blood Pressure Source [Right Arm] Automatic Cuff Blood Pressure Position [Right Arm] Sitting 02 Sat by Pulse Oximetry 96 94 L Oxygen Delivery Method Room Air 09/29/25 11:47 09/29/25 11:55 09/29/25 12:00 Temperature Temperature Source Pulse Rate 85 106 H 101 H Pulse Rate [Left] Respiratory Rate 19 13 18 Blood Pressure 162/88 H 121/76 128/82 Blood Pressure [Right Arm] Blood Pressure Mean Blood Pressure Mean [Right Arm] Blood Pressure Source [Right Arm] Blood Pressure Position [Right Arm] 02 Sat by Pulse Oximetry 97 96 96 Oxygen Delivery Method 09/29/25 12:05 09/29/25 12:26 09/29/25 12:30 Temperature Temperature Source Pulse Rate 100 H 85 85 Pulse Rate [Left] Respiratory Rate 18 23 17 Blood Pressure 129/75 142/70 H 148/83 H Blood Pressure [Right Arm] Blood Pressure Mean Blood Pressure Mean [Right Arm] Blood Pressure Source [Right Arm] Blood Pressure Position [Right Arm] 02 Sat by Pulse Oximetry 95 97 97 Oxygen Delivery Method 09/29/25 12:35 09/29/25 12:40 09/29/25 12:55 Temperature Temperature Source Pulse Rate 87 88 88 Pulse Rate [Left] Respiratory Rate 21 19 20 Blood Pressure 140/77 152/83 H 152/73 H Blood Pressure [Right Arm] Blood Pressure Mean Blood Pressure Mean [Right Arm] Blood Pressure Source [Right Arm] Blood Pressure Position [Right Arm] 02 Sat by Pulse Oximetry 95 95 95 Oxygen Delivery Method 09/29/25 13:10 09/29/25 13:15 09/29/25 13:25 Temperature Temperature Source Pulse Rate 81 82 81 Pulse Rate [Left] Respiratory Rate 16 16 15 Blood Pressure 158/87 H 140/87 151/87 H Blood Pressure [Right Arm] Blood Pressure Mean Blood Pressure Mean [Right Arm] Blood Pressure Source [Right Arm] Blood Pressure Position [Right Arm] 02 Sat by Pulse Oximetry 96 96 95 Oxygen Delivery Method 09/29/25 13:30 09/29/25 13:35 09/29/25 13:40 Temperature Temperature Source Pulse Rate 82 83 84 Pulse Rate [Left] Respiratory Rate 18 20 20 Blood Pressure 142/90 H 148/89 H 140/85 Blood Pressure [Right Arm] Blood Pressure Mean Blood Pressure Mean [Right Arm] Blood Pressure Source [Right Arm] Blood Pressure Position [Right Arm] 02 Sat by Pulse Oximetry 95 95 94 L Oxygen Delivery Method 09/29/25 13:45 09/29/25 13:50 09/29/25 13:56 Temperature Temperature Source Pulse Rate 84 85 84 Pulse Rate [Left] Respiratory Rate 20 17 20 Blood Pressure 154/86 H 151/86 H 144/79 H Blood Pressure [Right Arm] Blood Pressure Mean Blood Pressure Mean [Right Arm] Blood Pressure Source [Right Arm] Blood Pressure Position [Right Arm] 02 Sat by Pulse Oximetry 94 L 94 L 94 L Oxygen Delivery Method 09/29/25 14:00 09/29/25 14:05 09/29/25 14:10 Temperature Temperature Source Pulse Rate 83 83 80 Pulse Rate [Left] Respiratory Rate 18 21 18 Blood Pressure 156/88 H 153/88 H 148/86 H Blood Pressure [Right Arm] Blood Pressure Mean 110 Blood Pressure Mean [Right Arm] Blood Pressure Source [Right Arm] Blood Pressure Position [Right Arm] 02 Sat by Pulse Oximetry 94 L 93 L 96 Oxygen Delivery Method Room Air 09/29/25 14:15 09/29/25 14:20 09/29/25 14:25 Temperature Temperature Source Pulse Rate 85 85 84 Pulse Rate [Left] Respiratory Rate 18 18 16 Blood Pressure 164/91 H 153/92 H 157/92 H Blood Pressure [Right Arm] Blood Pressure Mean 115 112 113 Blood Pressure Mean [Right Arm] Blood Pressure Source [Right Arm] Blood Pressure Position [Right Arm] 02 Sat by Pulse Oximetry 96 96 95 Oxygen Delivery Method Room Air Room Air Room Air 09/29/25 14:30 09/29/25 14:35 09/29/25 15:14 Temperature 98.4 F Temperature Source Pulse Rate 82 83 88 Pulse Rate [Left] Respiratory Rate 15 22 16 Blood Pressure 157/87 H 144/88 H 152/84 H Blood Pressure [Right Arm] Blood Pressure Mean 121 124 Blood Pressure Mean [Right Arm] Blood Pressure Source [Right Arm] Blood Pressure Position [Right Arm] 02 Sat by Pulse Oximetry 96 96 Oxygen Delivery Method Room Air Room Air Lab Data Labs: Lab Results 09/29/25 11:07: WBC 6.3, RBC 4.62, Hgb 13.6, Hct 39.5, MCV 85.5, MCH 29.4, MCHC 34.4, RDW 13.5, Plt Count 148, MPV 9.9, Neut % (Auto) 71.8, Lymph % (Auto) 19.6, [place] % (Auto) 6.2, Eos % (Auto) 1.3, Baso % (Auto) 0.5, Neut # (Auto) 4.5, Lymph # (Auto) 1.2, [place] # (Auto) 0.4, Eos # (Auto) 0.1, Baso # (Auto) 0.0, D-Dimer 2.58 H, Sodium 139, Potassium 3.8, Chloride 99, Carbon Dioxide 27, Anion Gap 16.8 H, BUN 12, Creatinine 0.70, Estimated Creat Clear 66, Estimated GFR 83, Est GFR ( Amer) 101, Glucose 214 H, Calcium 9.3, Magnesium 1.7, Total Bilirubin 1.1, AST 33, ALT 34, Alkaline Phosphatase 89, Troponin I < 0.01, NT-Pro-B Natriuret Pep 30.6, Total Protein 7.4, Albumin 4.9, Globulin 2.5, A lbumin/Globulin Ratio 2.0 H, Lipase 83, HCV Ab TRACY w/Rflx PCR Qn Negative, HIV Ag/Ab Combo Qual Negative 09/29/25 11:40: SARS-CoV-2 (PCR) Detected A, Influenza A Untype (PCR) Not detected, Influenza Type B (PCR) Not detected 09/29/25 11:07 09/29/25 11:07 Response Orders (Tests/Meds): ED MEDICATIONS Generic Name Dose Route Start Last Admin Trade Name Freq PRN Reason Stop Dose Admin Acetaminophen 650 mg 09/29/25 14:36 Acetaminophen 325mg Tab PO 10/29/25 14:35 Q4HP PRN Fever or Mild Pain (1-3) Hydrocodone Bitart/Acetaminophen 1 tab 09/29/25 14:36 Hydrocodone/Apap 5/325 Mg Tablet PO 10/29/25 14:35 Q4HP PRN Mild to Moderate Pain (1-6) Hydrocodone Bitart/Acetaminophen 2 tab 09/29/25 14:36 Hydrocodone/Apap 5/325 Mg Tablet PO 10/29/25 14:35 Q4HP PRN Moderate to Severe Pain (4-10) Enoxaparin Sodium 75 mg 09/29/25 14:30 09/29/25 14:53 Enoxaparin 80mg/0.8ml Syringe SUBCUT 10/29/25 14:29 75 mg Q12H CITLALLI Administration Insulin Human Lispro 0 unit 09/29/25 16:30 Humalog 100 Units/Ml 10ml Vial (Ssi) SUBCUT 10/29/25 16:29 ACHS CITLALLI Protocol Pantoprazole Sodium 40 mg 09/29/25 21:00 Pantoprazole 40mg Tablet PO 10/29/25 20:59 HS CITLALLI Discontinued Medications Generic Name Dose Route Start Last Admin Trade Name Freq PRN Reason Stop Dose Admin Aspirin 325 mg 09/29/25 11:01 09/29/25 11:24 Aspirin 325mg Tablet PO 09/29/25 11:02 325 mg ONCE ONE Administration Hydralazine HCl 10 mg 09/29/25 11:05 09/29/25 11:23 Hydralazine 20mg/Ml Vial IV 09/29/25 11:06 10 mg ONCE ONE Administration Hydromorphone HCl 0.5 mg 09/29/25 11:59 09/29/25 12:28 Hydromorphone 2mg/Ml Syringe IV 09/29/25 12:00 0.5 mg ONCE ONE Administration Iopamidol 70 ml 09/29/25 12:19 09/29/25 12:20 Iopamidol-370 (76%);100ml Bottle IV 09/29/25 12:20 70 ml ONCE ONE Administration Nitroglycerin 0.4 mg 09/29/25 11:48 09/29/25 11:52 Nitroglycerin 0.4mg Sl Tablet SL 09/29/25 11:49 0.4 mg ONCE ONE Administration Sodium Chloride 10 ml 09/29/25 12:19 09/29/25 12:20 Sodium Chloride 0.9% 10ml Syr (Rad Only) IV 09/29/25 12:20 10 ml ONCE ONE Administration Sodium Chloride 50 ml 09/29/25 12:19 09/29/25 12:19 0.9 % Sodium Chloride 50 Ml Vial IV 09/29/25 12:20 50 ml ONCE ONE Administration ORDERS Category Date Time Status CTA Chest [CT angio chest PE protocol] Stat Cat Scan 09/29/25 11:44 Completed Chest XR -- portable [XR chest portable] Stat Exams 09/29/25 11:01 Completed BNP [NT Pro Brain Natriuretic Pep.] Stat Lab 09/29/25 11:07 Completed CBC [Complete Blood Count Auto Diff] Stat Lab 09/29/25 11:07 Completed Complete Blood Count Auto Diff AMLAB Lab 09/30/25 06:00 Ordered Comprehensive Metabolic Panel AMLAB Lab 09/30/25 06:00 Ordered Comprehensive Metabolic Panel Stat Lab 09/29/25 11:07 Completed D-Dimer Stat Lab 09/29/25 11:07 Completed HIV Combo Stat Lab 09/29/25 11:07 Completed Hepatitis C Ab Qual. W/ RFX Stat Lab 09/29/25 11:07 Completed Lipase Stat Lab 09/29/25 11:07 Completed Magnesium AMLAB Lab 09/30/25 06:00 Ordered Magnesium Stat Lab 09/29/25 11:07 Completed Rapid PCR Covid and Flu A/B Stat Lab 09/29/25 11:40 Completed Trop I [Troponin I] Stat Lab 09/29/25 11:07 Completed Troponin I Q3H Lab 09/29/25 15:10 Received Troponin I Q3H Lab 09/29/25 18:10 Ordered MDM Narrative Medical Decision Narrative: patient is a 65-year-old female presenting to the emergency department for evaluation of chest pain that started at 7 AM. Patient is hemodynamically stable and nontoxic-appearing upon arrival, afebrile. Differential diagnosis includes ACS, CAD, ID, hypertension, among others. Workup will be conducted with hematologic labs, specific imaging, provocative tests. Initial inventions include crystalloid bolus, analgesics. Initial workup reviewed by me hematologic labs are remarkable for. White count was 6.3 H&H was normal dimer was 2.58 so we did order the CTA, we are waiting for the CTA to result at this time. Potassium was 3.8 BUN was 12 creatinine was 0.70, mag was 1.7 troponin was less than 0.01. We we will do another troponin. We are still awaiting the second troponin result. Patient's CTA came back positive for bilateral pulmonary emboli right worse than left with no right heart strain. I did talk to Dr. Koroma who wanted Lovenox rather than Xarelto. She is not requiring oxygen at this time but she is continuing to have chest pain. I have given nitro and Dilaudid. She continues to have pain. We will talk to hospitalist about admission for pain control and PEs with chest pain.
--- OUTSIDE RECORDS SUMMARY | 2025-09-29 11:16 | XMS_ITS | Encounter Summary ---
Author Organization Healthcare Address [address] [place] [address] Care Team Providers Care Histotechnologist Name Role Phone Meli Gallardo MIGUEL ANGEL Primary Care Provider [phone] Tito Sue MD Unavailable [phone] Encounter Details Date Type Department Care Team (Latest Contact Info) Description 08/12/2025 Travel Social History Tobacco Use Types Packs/Day [...] How often do you attend chur or religion services? 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
--- OUTSIDE RECORDS SUMMARY | 2025-09-29 11:16 | XMS_ITS | Encounter Summary ---
Author Organization Healthcare Address [address] [place] [address] Care Team Providers Care Mercury Purifier Name Role Phone Meli Gallardo MIGUEL ANGEL Primary Care Provider [phone] Tito Sue MD Unavailable [phone] Encounter Details Date Type Department Care Team (Late st Contact Info) Description 08/18/2025 Telephone [place] [facility] [address] [place] [address] Tito Sue MD [address] [place] [address] Social History Tobacco Use Types [...] often do you attend chur ch or adventism services? Never 10/02/2024 Do you belong to any clubs o r organizations such as confucianism groups, unions, fraternal or athletic groups, or [...] Patient Health Questionnaire-2 Score 0 02/24/2024 [facility] - Occupational Stress Questionnaire Answer Date [...] any time in the past 12 m [facility], were you homeless or living in a fpc (including now)? 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 0 10/01/2024 CAGE Questionnaire Score 0 024 Utilities Answer Date Recorded In the past 12 months has th e [employer], gas, oil, or water company threatened to [...] encounter Miscellaneous Notes * Telephone Encounter - Josué Chavez - 08/18/2025 11:05 AM EST 08/18/2025 - 11:02AM // Attempted to contact patient to verify if she would be coming in for her office visit/ appointment with Dr. Sue today. - When called no answer & her voicemail box is full cannot leave a voicemail message. (Patient's appointment time for appointment today 08/18/2025 at 9:30AM was moved up per her request/ will now be No-Show Status and a no-show letter will be issued for failure to call prior to cancel. ) documented in this encounter Plan of Treatment Not on file documented as of this encounter Goals Goal Patient Goal Type Associated Problems Recent Progress Patient-Stated? Author Autogenera serna Goal Care Plan Autogenerated Problem No Radha Duran Autogenera kareem Goal Care Plan Autogenerated Problem No Josué [...] documented as of this encounter Care Teams Mercury Purifier Relationship Specialty Start Date End Date Meli Gallardo APRN [id number] PCP - General 02/17/21 Tito Sue MD [address] [address] Surgeon Neurosurgery 07/21/25 documented as of this encounter
--- OUTSIDE RECORDS SUMMARY | 2025-09-29 11:16 | XMS_ITS | Encounter Summary ---
Author Organization Healthcare Address [address] [place] [address] Care Team Providers Care Telecommunications Switch Technician Name Role Phone Meli Gallardo MIGUEL ANGEL Primary Care Provider [phone] Tito Sue MD Unavailable [phone] Encounter Details Date Type Department Care Team (Latest Contact Info) Description 09/15/2025 Travel Social History Tobacco Use Types Packs/Day [...] How often do you attend chur or confucianist services? 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
--- OUTSIDE RECORDS SUMMARY | 2025-09-29 11:16 | XMS_ITS | Data Portability ---
Author Organization [facility] [employer] [facility] Address [address] [place] [address] [place] [address] Assessment Encounter Date Assessment Date Assessment LastModified by Organization Details LastModified Time 08/06/2025 08/06/2025 April Olvera presented with lumbar back pain radiating to her big toe following L4-L5 surgery in January, and recent emergency department visits for back pain and chest pain with shortness of breath. Her medical history includes hypothyroidism and poorly controlled diabetes (A1c 9.0%, glucose 436). Treatment included increasing gabapentin to 600mg TID, continuing Lortab for severe pain prn short term, increasing insulin to 20 units BID, increasing Synthroid from 137 to 150mcg daily due to elevated TSH (17) and low T4 ).7 in ER on 08/02/25, and continuing DEXCOM CGM therapy for glycemic monitoring. She was advised to Continue physical therapy, use cold packs, keep Neurosurgery f/up appt next week and get a flu shot. [email or web address] Not available 08/06/2025 17:59:49 Plan of Treatment Reminders Order Date Submit Date Provider Last Modified By Organization Details Last Modified Time Details Appointments None recorded. Lab rapid influenza virus A + B and SARS CoV + SARS CoV 2 Ag panel, [place], upper respiratory specimen [email or web address], [address], 5 10:58:12 HbA1c (hemoglobin A1c), blood [email or web address], [address], 5 16:15:21 TSH, ultra-sensi tive, serum 2024 025 [facility]), [address] [place] [address], [address], 5 08:12:36 vitamin D, 25-hydroxy, total, serum 2024 025 [facility] ([place]), [address] [place] [address], [address], 5 08:12:35 HbA1c (hemoglobin A1c), blood [address], [address] [place] [address], [address], 5 09:59:51 CMP, serum or plasma 2024 025 [facility]), [address] [place] [address], [address], 5 08:12:35 Referral orthopedic spine surgeon referral - first available appt 2024 [facility] Dept Of Neurosurgery, [address], [address], 5 09:40:05 Procedures None recorded. Surgeries None recorded. Imaging None recorded. Medication Orders doxycycline monohydrate 100 mg capsule 2024 [facility], [address] [place] [address], [address], 5 12:06:55 Paxlovid 150 mg-100 mg tablets in a dose pack (Moderate Renal Dose) 2024 [facility], [address] [place] [address], [address], 05:01:44 prednisone 20 mg tablet 2024 [facility], [address] [place] [address], [address], 05:01:44 albuterol sulfate HFA 90 mcg/actuati on aerosol inhaler 2024 [facility], [address] [place] [address], [address], 12:06:53 Ozempic 1 mg/dose (4 mg/3 mL) subcutaneou s pen injector 2024 [facility], [address] [place] [address], [address], 17:20:25 Humulin 70/30 U-100 Insulin KwikPen 100 unit/mL subcutaneou s 2024 [facility], [address] [place] [address], [address], 17:20:27 levothyroxi ne 150 mcg tablet 2024 [facility], [address] [place] [address], [address], 17:20:26 gabapentin 600 mg tablet 2024 [facility], [address] [place] [address], [address], 17:20:25 hydrocodone 5 mg-acetamin ophen 325 mg tablet 2024 025 [facility], [address] [place] [address], [address], 17:20:27 Repatha SureClick 140 mg/mL subcutaneou s pen injector 2024 025 [facility], [address] [place] [address], [address], 5 11:24:57 Ozempic 1 mg/dose (4 mg/3 mL) subcutaneou s pen injector 2024 025 [facility], [address] [place] [address], [address], 5 11:51:16 azithromyci n 250 mg tablet [email or web address] [place] [address] Pharmacy, [address] [place] [address], [address], 5 16:28:16 Patient TargetsNo targets recorded. Patient InstructionsNo instructions recorded. Reason for Referral Orthopedic Spine Surgeon Ref erral for Lumbosacral radiculopathy first available appt Referring Physician: Meli Gallardo, Family Medicine, Encounter Date: 01/01/2025 Results Created Date Observation Date Name Description Value Unit Range Abnormal Flag Note LastModifiedBy Organization Detail LastModifiedTime 12/12/1912/13/2024 URINE CULTU SABINE YOUSIF urine culture, routine Final report abnormal Not Available [facility] ([facility]) [address] [facility], [place], [address], 12/13/2024 09:07:51 12/12/1912/13/2024 URINE CULTU SABINE YOUSIF result 1 COMMEN T abnormal Beta hemol ytic Strep tococ cus, group B 10,00 0-25, 000 colon y formi ng units per mL Penic illin and ampic illin are drugs of choic e for treat ment of beta- hemol ytic strep tococ francine infec tions . Susce ptibi lity testi ng of penic illin s and other beta- lacta m agent s appro flor by the FDA for treat ment of beta- hemol ytic strep tococ francine infec tions need not be perfo rmed routi tony hanna se nonsu scept ible isola jaiden are extre madelin rare in any beta- hemol ytic strep tococ cus and have not been repor kareem for Strep tococ cus pyoge george (grou p A). (CLSI ) Not Available [facility] ([facility]) [address] [facility], [place], [address], 12/13/2024 09:07:51 12/12/19 25 12/11/2024 urina lysis , dipst ick Leukocytes Negati ve Not Available [address], [address], 12/11/2024 13:40:55 12/12/19 25 12/11/2024 urina lysis , dipst ick Nitrite negati ve Not Available [address], [address], 12/11/2024 13:40:55 12/12/19 25 12/11/2024 urina lysis , dipst ick Urobilinogen .2 Not Available [address], [address], 12/11/2024 13:40:55 12/12/19 25 12/11/2024 urina lysis , dipst ick Protein 30 Not Available [address], [address], 12/11/2024 13:40:55 12/12/19 25 12/11/2024 urina lysis , dipst ick pH 6.0 Not Available [address], [address], 12/11/2024 13:40:55 12/12/19 25 12/11/2024 urina lysis , dipst ick Blood Negati ve Not Available [address], [address], 12/11/2024 13:40:55 12/12/19 25 12/11/2024 urina lysis , dipst ick Specific Davy 1.025 Not Available [address], [address], 12/11/2024 13:40:55 12/12/19 25 12/11/2024 urina lysis , dipst ick Ketone Trace Not Available [address], [address], 12/11/2024 13:40:55 12/12/19 25 12/11/2024 urina lysis , dipst ick Bilirubin Negati ve Not Available [address], [address], 12/11/2024 13:40:55 12/12/19 25 12/11/2024 urina lysis , dipst ick Glucose 500 Not Available [address], [address], 12/11/2024 13:40:55 12/12/19 25 12/11/2024 urina lysis , dipst ick Appearance Clear Not Available [address], [address], 12/11/2024 13:40:55 12/12/19 25 12/11/2024 urina lysis , dipst ick Color Yellow Not Available [address], [address], 12/11/2024 13:40:55 04/27/20 25 04/27/2025 HbA1c (hemo globi n A1c), blood HbA1c 7.2 Not Available [address], [address], 04/26/2025 18:01:46 08/06/20 25 08/06/2025 HbA1c (hemo globi n A1c), blood HbA1c 9.0 Not Available [address], [address], 08/06/2025 15:55:28 09/06/20 25 09/06/2025 rapid influ brayden virus A + B and SARS CoV + SARS CoV 2 Ag panel , [place], upper respi rator y speci men SARS-CoV2 positi ve Not Available [address], [address], 09/06/2025 10:20:24 09/06/20 25 09/06/2025 rapid influ brayden virus A + B and SARS CoV + SARS CoV 2 Ag panel , [place], upper respi rator y speci men Flu A negati ve Not Available [address], [address], 09/06/2025 10:20:24 09/06/20 25 09/06/2025 rapid influ brayden virus A + B and SARS CoV + SARS CoV 2 Ag panel , [place], upper respi rator y speci men Flu B negati ve Not Available [address], [address], 09/06/2025 10:20:24 12/12/19 25 XR, abdom en, 1 view No observ ation record ed. [email or web address] [address], [address], 12/11/2024 17:34:33 12/25/19 25 12/22/2024 MAMMO , scree litzy, digit al, bilat eral No observ ation record ed. [email or web address] [facility] [address], [place], [address], 12/25/2024 13:18:11 04/06/20 25 04/06/2025 CT, lumba r spine , w/o contr ast No observ ation record ed. [email or web address] [address], [place], [address], 04/06/2025 12:52:30 04/06/20 25 04/06/2025 CT, myelo gram, lumba r spine No observ ation record ed. [address], [place], [address], 04/06/2025 14:14:52 Result Notes None recorded. Problems Name Problem SNOMED Code Status Onset Date Resolution Date Notes Provider Name and Address Organization Details Recorded Time Wheezing 05889823 Completed 201609/11/2017 Problem Code: R06.2; Problem Code Type: ICD-10; Not Available [facility] 2 22:05:38 Gastroes ophageal reflux disease without esophagi tis 994409798 Completed 201610/30/2017 Not Available [facility] 2 22:05:37 Gastroes ophageal reflux disease 251719986 Completed 201601/31/2018 Problem Code: 530.81; Problem Code Type: ICD-9; Not Available [facility] 2 22:05:44 Influenz a 6341263 Completed 201710/30/2017 Problem Code: J10.1; Problem Code Type: ICD-10; Not Available [facility] 2 22:05:36 Acute bronchit is 73815103 Completed 201710/30/2017 Problem Code: J20.8; Problem Code Type: ICD-10; ADY solano [place] [facility] [employer] 2 09:28:05 Influenz a with respirat ory manifest ation other than pneumoni a Completed 201710/30/2017 Problem Code: 487.1; Problem Code Type: ICD-9; Not Available [facility] 2 22:05:47 Breast neoplasm screenin g status 294875473 Completed 201712/29/2017 Problem Code: Z12.39; Problem Code Type: ICD-10; Not Available [facility] 2 22:05:39 Screenin g for malignan t neoplasm of breast Completed 201712/29/2017 Problem Code: V76.10; Problem Code Type: ICD-9; Not Available [facility] 2 22:05:46 Acute cystitis 96975750 Completed 201712/20/2017 Problem Code: N30.00; Problem Code Type: ICD-10; Not Available [facility] 22:05:38 Low back pain 342221407 Completed 201712/23/2017 Problem Code: M54.5; Problem Code Type: ICD-10; ADY solano [employer] 2 09:28:05 Back problem 349279406 Completed 201712/23/2017 Problem Code: 724.8; Problem Code Type: ICD-9; Not Available [facility] 22:05:48 Plane wart 031868899 Completed 201704/01/2018 Problem Code: B07.8; Problem Code Type: ICD-10; Not Available [facility] 2 22:05:34 Atrophy of thyroid - acquired 424487540 Completed 201710/11/2018 Problem Code: E03.4; Problem Code Type: ICD-10; Not Available [facility] 2 22:05:34 Mixed hyperlip idemia 285591334 Active 2017 Problem Code: E78.2; Problem Code Type: ICD-10; Not Available [facility] 22:05:35 Generali zed anxiety disorder 63702420 Active 2017 Problem Code: F41.1; Problem Code Type: ICD-10; Not Available [facility] 22:05:35 Hyperten sive disorder 08987076 Completed 201705/05/2018 Problem Code: I10; Problem Code Type: ICD-10; Not Available [facility] 2 22:05:35 Acquired hypothyr oidism 535391863 Completed 201708/06/2018 Problem Code: 244.8; Problem Code Type: ICD-9; Not Available [facility] 2 22:05:42 Verruca vulgaris 77059720 Completed 201704/01/2018 Problem Code: 078.19; Problem Code Type: ICD-9; Not Available [facility] 2 22:05:43 Benign essentia l hyperten gerber 7647188 Active 2017 Problem Code: 401.1; Problem Code Type: ICD-9; Not Available [facility] 2 22:05:44 Verruca vulgaris 46998612 Completed 201704/05/2018 Problem Code: B07.9; Problem Code Type: ICD-10; Not Available [facility] 2 22:05:34 Acute sinusiti s 77955814 Completed 201704/09/2018 Problem Code: J01.90; Problem Code Type: ICD-10; ADY solano [employer] 2 09:28:05 Otitis externa 0896147 Completed 201706/03/2018 Problem Code: H60.339; Problem Code Type: ICD-10; Not Available [facility] 2 22:05:35 Otitis externa of right ear 01448934963 23595 Completed 201710/13/2018 Problem Code: H60.331; Problem Code Type: ICD-10; Not Available [facility] 2 22:05:35 Acute swimmer' s ear Completed 201706/03/2018 Problem Code: 380.12; Problem Code Type: ICD-9; Not Available [facility] 2 22:05:44 Dizzines s and giddines s 759958266 Completed 201710/13/2018 Problem Code: 780.4; Problem Code Type: ICD-9; Not Available [facility] 2 22:05:45 Focal oral mucinosi s 119885572 Completed 201708/19/2018 Problem Code: K13.79; Problem Code Type: ICD-10; Not Available [facility] 2 22:05:37 Lumbosac ral radiculo chalino 1093408 Active 2017 Problem Code: M54.16; Problem Code Type: ICD-10; Not Available [facility] 2 22:05:37 Disorder of oral soft tissues 99988983 Completed 201708/19/2018 Problem Code: 528.9; Problem Code Type: ICD-9; Not Available [facility] 2 22:05:44 Vitamin D deficien cy 31362225 Active 2017 Problem Code: E55.9; Problem Code Type: ICD-10; Not Available [facility] 2 22:05:35 Pain of intercos brandon space 475670404 Completed 201710/13/2018 Problem Code: R07.82; Problem Code Type: ICD-10; Not Available [facility] 2 22:05:38 Chest pain 38484068 Completed 201710/13/2018 Problem Code: 786.59; Problem Code Type: ICD-9; Not Available [facility] 22:05:45 Myositis 71980973 Completed 201810/25/2018 Problem Code: M60.9; Problem Code Type: ICD-10; Not Available [facility] 22:05:38 Fibromyo sitis 08228081 Completed 201810/25/2018 Problem Code: 729.1; Problem Code Type: ICD-9; Not Available [facility] 2 22:05:45 Nummular eczema 63200445 Completed 201808/01/2020 Problem Code: L30.0; Problem Code Type: ICD-10; Not Available [facility] 2 22:05:37 Screenin g mammogra phy Completed 201804/28/2019 Problem Code: Z12.31; Problem Code Type: ICD-10; ADY solnao [employer] 2 09:28:05 Bronchop neumonia 454342091 Completed 201804/28/2019 Problem Code: J18.0; Problem Code Type: ICD-10; Not Available [facility] 2 22:05:36 Abscess of abdomina l wall 78020834 Completed 201804/28/2019 Problem Code: L02.211; Problem Code Type: ICD-10; Not Available [facility] 2 22:05:37 Influenz a vaccine needed 78981981472 06 Completed 201804/28/2019 Problem Code: Z23; Problem Code Type: ICD-10; ADY MYJOSER null, [employer] 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 2 09:28:05 Chemical pneumoni tis caused by anesthes ia 16566161487 018044 Completed 201807/02/2022 ADY MIREYANEAR null, [employer] 2 09:28:05 Influenz a vaccine needed 68770767429 06 Completed 201808/01/2020 Problem Code: Z23; Problem Code Type: ICD-10; ADY MIREYANEAR null, [employer] 2 09:28:05 General examinat ion of patient Active 2019 Not Available [facility] 2 22:05:38 Screenin g mammogra phy Completed 201907/02/2022 Problem Code: Z12.31; Problem Code Type: ICD-10; ADY GOMESNEAR null, [employer] 2 09:28:05 Acute frontal sinusiti s 19406763 Completed 201908/01/2020 Problem Code: J01.11; Problem Code Type: ICD-10; ADY MYNEAR null, [employer] 2 09:28:05 Screenin g mammogra phy Completed 201907/12/2020 Problem Code: Z12.31; Problem Code Type: ICD-10; ADY MIREYANEAR null, [employer] 2 09:28:05 Disorder of upper respirat ory system 945151124 Completed 201901/31/2021 Problem Code: J06.9; Problem Code Type: ICD-10; Not Available [facility] 2 22:05:36 Influenz a vaccine needed 99356018730 06 Completed 201908/01/2020 Problem Code: Z23; Problem Code Type: ICD-10; ADY GOMESNEAR null, [employer] 2 09:28:05 Viral pneumoni a 29235442 Completed 201907/02/2022 Problem Code: J12.89; Problem Code Type: ICD-10; ADY MIREYANEAR null, [employer] 2 09:28:05 Acute sinusiti s 69010873 Completed 202007/02/2022 Problem Code: J01.90; Problem Code Type: ICD-10; ADY MIREYANEAR null, [employer] 2 09:28:05 Body mass index 30+ - obesity 576785255 Active 2020 Problem Code: Z68.34; Problem Code Type: ICD-10; Not Available [facility] 2 22:05:42 Low back pain 277509064 Completed 202007/02/2022 Problem Code: M54.5; Problem Code Type: ICD-10; ADY BAIG null, [employer] 2 09:28:05 Acute bronchit is 43677088 Completed 202007/02/2022 Problem Code: J20.9; Problem Code Type: ICD-10; ADY READR null, [employer] 2 09:28:05 Influenz a vaccine needed 96482215138 06 Completed 202007/02/2022 Problem Code: Z23; Problem Code Type: ICD-10; ADY GOMESNEAR null, [employer] 2 09:28:05 Abscess of limb 358696171 Completed 202107/02/2022 Problem Code: L02.415; Problem Code Type: ICD-10; ADY READR null, [employer] 2 09:28:05 Radiculo chalino due to lumbar interver tebral disc disorder 88698231890 9105 Active 2023 Meli Gallardo APRN [address] [place] [address], [address] [place] [address] , [employer] 4 10:32:09 Essentia l hyperten gerber 32607266 Active 2024 Meli Gallardo APRN [address] [place] [address], [address] [place] [address] , [employer] 5 09:56:57 Hypothyr oidism 00845160 Active 2024 Meli Gallardo APRN [address] [place] [address], [address] , [employer] 5 16:14:59 COVID-19 540033187 Active 2024 Meli Gallardo APRN [address] [place] [address], [address] , [employer] 5 10:48:35 Notes:*Problem Name: Incompl ete rotator cuff tear or rupture of right shoulder, not specified as traumatic *Problem Status: Chronic *Comments: *Problem Code: M75.111 *Problem Code Type: ICD-10 *Note Date: 11/01/2021 Some problems listed in Documents: #[id number], #[id number] could not be added to this patient's chart. Please review these documents and add these problems to the patient's chart manually as needed. Problem Notes None recorded. Procedures Surgical History Date Name Laterality Status Provider Name and Address Organization Details Recorded Time 025 Most Recent Mammogram completed [employer]. 01/01/2025 08:24:08 024 implantation of insertable loop recorder completed Meli Gallardo APRN [address] [place] [address], [address], [employer] 05/20/2024 16:49:29 023 cardiac catheterization completed Meli Gallardo APRN [address] [place] [address], [address], [employer] 01/07/2023 14:35:31 019 screening colonoscopy completed Myra Laura [employer] 12/17/2022 10:33:56 017 hysterectomy completed Not Available [facility] 06/12/2022 22:56:08 017 Date of Last Pap Smear completed [employer] 07/02/2022 09:29:20 Gallbladder Surgery completed YOMI A [employer] 07/02/2022 09:32:24 Carpal tunnel surgery completed [employer] 07/02/2022 09:32:35 Hemorrhoidectomy completed [employer]. 07/02/2022 09:32:46 Knee arthroscopy/surgery completed [employer] 07/02/2022 09:33:23 procedure on elbow completed [employer] 07/02/2022 09:33:43 thyroidectomy completed ADYKEI BAIG [employer] 07/02/2022 09:33:57 Imaging Results None recorded. Procedure Notes None recorded. Medical Equipment None Reported. Allergies Allergen ID Allergen Name Allergen Category Reaction Reaction Severity Criticality Documentation Date Start Date Code Code System Note Provider Name and Address Organization Details Recorded Time 39224 Product containin g penicilli n (product) medicatio n Not available Not available Not available 06/12/2022 55778 8001 SNOMED Myra Laura Terviu, [employer] 3 13:50:04 23769 Substance with sulfonami de structure and antibacte rial mechanism of action (substanc e) medicatio n Not available Not available Not available 06/12/2022 50982 8003 SNOMED Myra solano, [employer] 3 13:50:07 24388 Premarin medicatio n Not available Not available Not available 06/12/2022 83715 6 RxNorm Not Available [facility] 2 22:54:21 44636 morphine sulfate medicatio n Not available Not available Not available 06/12/2022 59351 RxNorm Not Available [facility] 2 22:54:22 81102 erythromy radha medicatio n Not available Not available Not available 06/12/2022 4053 RxNorm Not Available [facility] 2 22:54:22 73404 Zyrtec medicatio n Not available Not available Not available 06/12/2022 39013 RxNorm Not Available [facility] 2 22:54:22 25083 codeine medicatio n Not available Not available Not available 07/02/2022 2670 RxNorm ADY MIREYANEAR Terviu, [employer] 2 09:22:53 08009 codeine phosphate medicatio n Not available Not available Not available 09/06/20252007 2672 RxNorm Not Available [place] [facility] [employer] - prod 5 10:08:20 30044 azithromy radha medicatio n rash Not available low 09/06/20252017 44041 RxNorm Not Available [employer] - [employer] - prod 5 10:08:25 79556 cephalexi n medicatio n hives rash Not available Not available low 09/06/20252017 2231 RxNorm Not Available [employer] - [employer] - prod 5 10:08:25 10285 morphine medicatio n palpitati ons Not available low 09/06/20252017 7052 RxNorm Hear t beat reall y fast Not Available [employer] - prod 5 10:08:25 93996 estrogens , conjugate d (MCFP) medicatio n other Not available low 09/06/20252021 4099 RxNorm BLE numbn ess Not Available [facility] - [employer] - prod 5 10:08:25 10125 cetirizin e medicatio n rash Not available low 09/06/20252017 32401 RxNorm Not Available [employer] [employer] - prod 5 10:08:25 24864 penicilli n V Not available Not available Not available Not available 09/06/2025 7984 RxNorm unrec ogniz ed react ion (text : Adver se react ion to subst ance, code: 33487 0009) , moder ate (from exter nal sourc e) Not Available [employer] [employer] - prod 5 10:18:25 75594 amoxicill in medicatio n rash Not available low 09/06/20252020 723 RxNorm Not Available [facility] [employer] - prod 5 10:18:30 76173 Product containin g estrogen receptor agonist (product) medicatio n other Not available low 09/06/20252014 09241 003 SNOMED numbn ess Not Available [facility] [employer] - prod 5 10:18:30 83639 penicilli n G Not available hives Not available high 09/06/20252024 7980 RxNorm Not Available [facility] [employer] - prod 10:18:30 91401 Product containin g 3-hydroxy -3-methyl glutaryl- coenzyme A reductase inhibitor (product) medicatio n hives rash Not available Not available [facility] 09/06/20252024 55557 009 SNOMED [place] kareem liver enzym es Not Available [facility] - [employer] - prod 10:18:30 17075 sulfaceta mide medicatio n dyspnea hives rash Not available Not available Not available [facility] 09/06/20252009 31438 RxNorm Not Available [facility] - [employer] - prod 10:18:30 Medications Name Sig Start Date Stop Date Status Note LastModified by Organization Details LastModified Time embrace pen needles/3 1g x 5mm 31g x 5 mm misc active Not Available Not Available Not Available Prescript ion - Prior Authoriza tion Request active Not Available Not Available Not Available Singulair 10 mg tablet Take 1 tablet(s ) by mouth each evening 07/02 completed Not Available Not Available Not Available cyclobenz aprine 10 mg tablet TAKE 1 TABLET BY MOUTH EVERY 8 HOURS 07/02 completed Not Available Not Available Not Available atorvasta tin 40 mg tablet TAKE 1 TABLET BY MOUTH EVERY DAY active Not Available Not Available No t Available methocarb caterina 500 mg tablet 10/14 completed Not Available Not Available Not Available buspirone 5 mg tablet TAKE 1 TABLET BY MOUTH THREE TIMES A DAY NEEDED FOR ANXIETY 07/02 completed Not Available Not Available Not Available promethaz ine-DM 6.25 mg-15 mg/5 mL oral syrup Take 1 teaspoon ful by mouth every 6 hours as needed. 10/30 completed Not Available Not Available Not Available levothyro xine 137 mcg tablet TAKE 1 TABLET BY MOUTH EVERY DAY ON AN EMPTY STOMACH 30 MINUTES BEFORE BREAKFAS T 08/06 completed Not Available Not Available Not Available atorvasta tin 80 mg tablet TAKE 1 TABLET BY MOUTH EVERY DAY 12/19 completed Not Available Not Available Not Available carvedilo l 25 mg tablet TAKE 1 TABLET BY MOUTH TWICE A DAY active Not Available Not Available No t Available carvedilo l 6.25 mg tablet Take 1 tablet(s ) by mouth bid 01/31 completed Not Available Not Available Not Available gabapenti n 600 mg tablet TAKE 1 TABLET BY MOUTH 3 TIMES DAILY active Not Available Not Available No t Available ropinirol e 1 mg tablet Take 1 tablet by mouth twice daily. 05/10 completed Not Available Not Available Not Available torsemide 20 mg tablet TAKE 1 TABLET BY MOUTH EVERY DAY 07/02 completed Not Available Not Available Not Available citalopra m 40 mg tablet TAKE 1 TABLET BY MOUTH EVERY DAY active Not Available Not Available No t Available azithromy radha 250 mg tablet TAKE 2 TABLETS BY MOUTH ON DAY 1, THEN TAKE 1 TABLET DAILY ON DAYS 2-5 08/06 completed Not Available Not Available Not Available hydrocodo ne 5 mg-acetam inophen 325 mg tablet TAKE 1 TABLET BY MOUTH EVERY 6 HOURS as needed for severe pain active Not Available Not Available No t Available ciproflox acin 500 mg/5 mL oral suspensio n take 1 millilit er (100 mg) by oral route every 12 hours 06/22 completed Not Available Not Available Not Available Fiber Laxative (calcium polycarbo evans) 625 mg tablet TAKE 1 TABLET BY MOUTH EVERY DAY active Not Available Not Available No t Available lisinopri l 20 mg tablet TAKE 1 TABLET BY MOUTH EVERY DAY active Not Available Not Available No t Available ondansetr on HCl 4 mg tablet 01/07 completed Not Available Not Available Not Available famotidin e 40 mg tablet TAKE 1 TABLET BY MOUTH EVERY DAY 10/14 completed Not Available Not Available Not Available prednison e 20 mg tablet Take 2 tablets every day by oral route for 5 days. 09/18 completed Not Available Not Available Not Available Alcohol Pads Use to inject insulin or check glucose 2024 active Not Available Not Available Not Avai lable meclizine 12.5 mg tablet Take 1 every 8 hours as needed 05/05 completed Takes other histamin es without reaction . Not Available Not Available Not Available metronida zole 500 mg tablet TAKE 1 TABLET BY MOUTH EVERY 8 HOURS FOR 10 DAYS 09/17 completed Not Available Not Available Not Available clopidogr el 75 mg tablet TAKE 1 TABLET BY MOUTH EVERY DAY 04/27 completed Not Available Not Available Not Available prochlorp erazine maleate 10 mg tablet TAKE 1 TABLET BY MOUTH EVERY 8 HOURS NEEDED 07/02 completed Not Available Not Available Not Available ciproflox acin 500 mg tablet TAKE 1 TABLET BY MOUTH EVERY 12 HOURS FOR 10 DAYS 09/17 completed Not Available Not Available Not Available Tamiflu 75 mg capsule Take 1 capsule( s) by mouth bid for 5 days 10/21 completed Not Available Not Available Not Available hydrocodo ne 10 mg-acetam inophen 325 mg tablet Take 1 tablet by mouth every 8 hours as needed for severe pain (pain) for up to 7 days. 08/06 completed Not Available Not Available Not Available omeprazol e 40 mg capsule,d elayed release TAKE 1 CAPSULE BY MOUTH 1 TIME EACH DAY. DO NOT CRUSH OR CHEW. 06/17 completed Not Available Not Available Not Available aspirin 81 mg tablet,de layed release Take 1 tablet(s ) by mouth daily active Not Available Not Available No t Available tramadol 50 mg tablet TAKE 1 TABLET BY MOUTH EVERY 6 HOURS NEEDED FOR SEVERE SHOULDER PAIN 10/09 completed Not Available Not Available Not Available spironola ctone 25 mg tablet TAKE 1 TABLET BY MOUTH EVERY OTHER DAY 04/27 completed Not Available Not Available Not Available ketorolac 10 mg tablet Take 1 tablet by mouth 3 times a day for 3 days. 08/06 completed Not Available Not Available Not Available pantopraz ole 20 mg tablet,de layed release Take one tablet once daily 07/15 completed Not Available Not Available Not Available isosorbid e mononitra te ER 60 mg tablet,ex tended release 24 hr TAKE 1 TABLET BY MOUTH EVERY DAY active Not Available Not Available No t Available famotidin e 20 mg tablet TAKE 1 TABLET (20 MG) BY MOUTH 2 (TWO) TIMES A DAY 04/27 completed Not Available Not Available Not Available trazodone 100 mg tablet TAKE 1 TABLET BY MOUTH EVERYDAY AT BEDTIME active Not Available Not Available No t Available amlodipin e 10 mg tablet TAKE 1 TABLET BY MOUTH EVERY DAY active Not Available Not Available No t Available doxycycli ne monohydra te 100 mg capsule TAKE 1 CAPSULE BY MOUTH TWICE DAILY FOR 7 DAYS active Not Available Not Available No t Available pantopraz ole 40 mg tablet,de layed release TAKE 1 TABLET BY MOUTH TWICE A DAY. DO NOT CRUSH, CHEW, OR SPLIT active Not Available Not Available No t Available metformin 1,000 mg tablet Take 1 tablet(s ) by mouth at in the AM and 1 tablet by mouth at bedtime 10/30 completed Not Available Not Available Not Available ranitidin e 150 mg tablet Take 1 tablet two times a day by mouth 01/26 completed Not Available Not Available Not Available buspirone 10 mg tablet TAKE ONE TABLET BY MOUTH THREE TIMES DAILY active Not Available Not Available No t Available promethaz ine 25 mg tablet take 1 tablet (25 mg) by oral route every 12 hours prn N/V 04/27 completed Not Available Not Available Not Available levothyro xine 150 mcg tablet TAKE 1 TABLET BY MOUTH EVERY DAY IN THE MORNING FOR thyroid active Not Available Not Available No t Available gabapenti n 300 mg capsule TAKE 1 CAPSULE BY MOUTH four times a DAY 08/06 completed Not Available Not Available Not Available omeprazol e 20 mg capsule,d elayed release TAKE 1 CAPSULE BY MOUTH EVERY DAY 10/14 completed Not Available Not Available Not Available diclofena c sodium 75 mg tablet,de layed release TAKE 1 TABLET BY MOUTH TWICE A DAY 07/02 completed Not Available Not Available Not Available mupirocin 2 % topical ointment APPLY TO THE SURGICAL SITE TWICE DAILY. KEEP COVERED WITH BANDAGE 06/17 completed Not Available Not Available Not Available furosemid e 20 mg tablet TAKE 1 TABLET BY MOUTH EVERY DAY active Not Available Not Available No t Available ergocalci ferol (vitamin D2) 1,250 mcg (50,000 unit) capsule TAKE 1 CAPSULE BY MOUTH WEEKLY FOR 12 WEEKS active Not Available Not Available No t Available ibuprofen 100 mg/5 mL oral suspensio n 10/14 completed Not Available Not Available Not Available albuterol sulfate HFA 90 mcg/actua tion aerosol inhaler inhale 1 TO 2 puffs BY MOUTH every 4 TO 6 hours NEEDED FOR cough OR wheeze active Not Available Not Available No t Available colchicin e 0.6 mg tablet TAKE TWO TABLETS BY MOUTH DAILY FOR ONE DAY 01/01 completed Not Available Not Available Not Available ondansetr on 4 mg disintegr ating tablet TAKE 1 TABLET BY MOUTH EVERY 8 HOURS NEEDED FOR NAUSEA FOR UP TO 7 DAYS 01/01 completed Not Available Not Available Not Available fluticaso ne propionat e 50 mcg/actua tion nasal spray,keith pension SPRAY 1 SPRAY INTO EACH NOSTRIL TWICE A DAY active Not Available Not Available No t Available insulin lispro protamine -lispro 100 unit/mL (75-25) subcutane ous susp Inject 64 units SQ BID 10/31 completed Not Available Not Available Not Available doxycycli ne hyclate 100 mg tablet TAKE 1 TABLET BY MOUTH EVERY DAY 03/18 completed Not Available Not Available Not Available oxycodone 5 mg tablet 01/01 completed Not Available Not Available Not Available Decadron 6 mg tablet take 1 tablet (6 mg) by oral route every other day 08/01 completed Not Available Not Available Not Available Laxative (bisacody l) 5 mg tablet,de layed release Take all 4 tablets at 4 PM on day before colonosc opy 08/06 completed Not Available Not Available Not Available escitalop aarti 20 mg tablet Take 1 tablet(s ) by mouth daily 01/31 completed Not Available Not Available Not Available Zetia 10 mg tablet Take 1 tablet(s ) by mouth daily 07/02 completed Not Available Not Available Not Available cyclobenz aprine 5 mg tablet Take 1 tablet by mouth 3 times a day as needed for muscle spasms. active Not Available Not Available No t Available Ciprodex 0.3 %-0.1 % ear drops,keith pension Instill 4 drop(s) in affected ear(s) bid for 7 days 05/05 completed Not Available Not Available Not Available rosuvasta tin 40 mg tablet Take 1 tablet(s ) by mouth daily 07/02 completed Not Available Not Available Not Available pregabali n 75 mg capsule TAKE 1 CAPSULE BY MOUTH TWICE DAILY 08/06 completed Not Available Not Available Not Available pregabali n 150 mg capsule TAKE 1 CAPSULE BY MOUTH TWICE DAILY 08/06 completed Not Available Not Available Not Available Fluticaso ne Propionat e (Nasal) 2 sprays each nostril daily 01/23 completed Not Available Not Available Not Available Cathflo Activase 06/22 completed Not Available Not Available Not Available Januvia 100 mg tablet TAKE 1 TABLET BY MOUTH EVERY DAY 10/14 completed Not Available Not Available Not Available peg 3350-elec trolytes 236 gram-22.7 4 gram-6.74 gram-5.86 gram solution MIX as directed AT 5pm DAY BEFORE colonosc opy DRINK 3/4 of THE jug them DRINK THE remainin g 1/4 of THE jug 6 hours BEFORE you LEAVE home ON DAY of colonosc opy 08/06 completed Not Available Not Available Not Available Havrix (PF) 1,440 IGGY unit/mL intramusc ular suspensio n Give 1 ML IM x 1 dose please. 12/10 completed Not Available Not Available Not Available Humalog Mix 75-25 KwikPen U-100 insulin 100 unit/mL subcutane ous pen INJECT 50 UNITS BELOW THE SKIN every AM and HS 10/14 completed Not Available Not Available Not Available Humalog KwikPen (U-100) Insulin 100 unit/mL subcutane ous INJECT 65 UNITS BELOW THE SKIN TWICE A DAY active Not Available Not Available No t Available levothyro xine 137 mcg capsule take 1 capsule (137 mcg) by oral route once daily on an empty stomach3 0 minutes before breakfas t 07/02 completed Not Available Not Available Not Available Accu-Chek Meche Plus test strips Test blood sugar three times daily 2021 active Not Available Not Available Not Avai lable aloglipti n 25 mg tablet take 1 tablet (25 mg) by oral route once daily 07/02 completed Not Available Not Available Not Available Invokana 300 mg tablet Take 1 tablet(s ) by mouth daily before the first meal of the day. 06/22 completed Not Available Not Available Not Available Humulin 70/30 U-100 Insulin KwikPen 100 unit/mL subcutane ous Inject 20 units under the skin twice a day. active Not Available Not Available No t Available Jardiance 25 mg tablet TAKE 1 TABLET BY MOUTH EVERY DAY IN THE MORNING active Not Available Not Available No t Available Repatha SureClick 140 mg/mL subcutane ous pen injector Inject 1 mL every 2 weeks by subcutan eous route. active Not Available Not Available No t Available Ozempic 0.25 mg or 0.5 mg (2 mg/1.5 mL) subcutane ous pen injector INJECT 0.25 MG UNDER THE SKIN ONCE WEEKLY 01/07 completed Not Available Not Available Not Available Dexcom G6 Manager [employer] USE DIRECTED . active Not Available Not Available No t Available Dexcom G6 Transmitt er device USE DIRECTED active Not Available Not Available No t Available baclofen 5 mg tablet take 1 tablet (5 mg) by oral route 3 times per day 07/02 completed Not Available Not Available Not Available BD Martha 2nd Gen Pen Needle 32 gauge x /32 USE TWICE DAILY WITH INSULIN active Not Available Not Available No t Available Flucelvax Quad 7399-0622 60 mcg (15 mcg x 4)/0.5 mL intramusc ular susp inject 0.5 millilit er (60 mcg) by intramus cular route once 01/26 completed Not Available Not Available Not Available Afluria Qd 2019- (36 mos up)(PF)60 mcg (15 mcg x4)/0.5 mL IM syringe inject 0.5 millilit er (60 mcg) by intramus cular route once 08/01 completed Not Available Not Available Not Available Ozempic 1 mg/dose (4 mg/3 mL) subcutane ous pen injector Inject 1 mg every week by subcutan eous route, for diabetes . active Not Available Not Available No t Available Paxlovid 150 mg-100 mg tablets in a dose pack (Moderate Renal Dose) Take 1 dose pk by oral route as directed for 5 days. 09/18 completed Not Available Not Available Not Available Dexcom G7 Sensor device Use as directed and change every 10 days active Not Available Not Available No t Available Ozempic 0.25 mg or 0.5 mg (2 mg/3 mL) subcutane ous pen injector Inject 0.5 mg every week by subcutan eous route. 04/27 completed Not Available Not Available Not Available Vitals Date Recorded Body height Body mass index (BMI) Body weight Body temperature Heart rate Oxygen saturation Systolic And Diastolic Provider Name and Address Organization Details Last Updated DateTime 5 154.94 cm 31.8 kg/m2 76348.9 6 g 98 [degF] 74 /min 94 % 135/70 mm[Hg] [employer] 5 08:23:39 Date Recorded Body height Body mass index (BMI) Body weight Body temperature Heart rate Oxygen saturation Systolic And Diastolic Provider Name and Address Organization Details Last Updated DateTime 5 154.94 cm 31.6 kg/m2 10943.9 3 g 97.6 [degF] 81 /min 94 % 107/59 mm[Hg] [employer] 5 15:24:52 Date Recorded Body height Body mass index (BMI) Body weight Body temperature Heart rate Oxygen saturation Systolic And Diastolic Provider Name and Address Organization Details Last Updated DateTime 5 154.94 cm 31.6 kg/m2 54626.3 6 g 98 [degF] 71 /min 95 % 105/31 mm[Hg] [employer] 5 09:41:33 Date Recorded Body height Body mass index (BMI) Body weight Body temperature Heart rate Oxygen saturation Systolic And Diastolic Provider Name and Address Organization Details Last Updated DateTime 5 154.94 cm 33.8 kg/m2 05702.0 3 g 98 [degF] 89 /min 93 % 136/93 mm[Hg] Elke Berger [employer] 5 16:02:17 Date Recorded Body height Body mass index (BMI) Body weight Body temperature Heart rate Oxygen saturation Systolic And Diastolic Provider Name and Address Organization Details Last Updated DateTime 5 154.94 cm 33.8 kg/m2 93413.0 3 g 97.3 [degF] 105 /min 94 % 105/67 mm[Hg] [employer] 5 10:19:50 Social History Question Answer Notes LastModified by Organizat ion Details LastModified Time Tobacco Smoking Status Never Smoker Myra solano, [facility] [employer] 11/12/2022 10:37:22 Do You Have An Advance Directive? No Information n ot available 07/02/2022 Is Your Home Air Conditioned? Yes Information not available 07/02/2022 Do You Wear A Helmet When Biking? No Information not available 07/02/2022 Are You Blind Or Do You Have Difficulty Seeing? No Information n ot available 07/02/2022 Are You A Caregiver? Yes Information not available 07/02/2022 In The 14 Days Before Symptom Onset, Have You Had Close Contact With A Laboratory-confirm ed COVID-19 While That Case Was Ill? No Information n ot available 07/02/2022 In The 14 Days Before Symptom Onset, Have You Had Close Contact With A Person Who Is Under Investigation For COVID-19 While That Person Was Ill? No Information not available 07/02/2022 Have You Been To An Area Known To Be High Risk For COVID-19? No Information not available 07/02/2022 Are You Deaf Or Do You Have Serious Difficulty Hearing? No Information not available 07/02/2022 What Type Of Diet Are You Following? DIABETIC Information n ot available 07/02/2022 Have There Been Any Changes To Your Family Or Social Situation? No Information no t available 07/02/2022 Are There Any Guns Present In Your Home? No Information not available 07/02/2022 Do You Have A Medical Power Of Operator Control Room? No Information not available 07/02/2022 What Was The Date Of Your Most Recent Tobacco Screening? 09/06/2025 Information not available 09/06/2025 Do You Have Any Pets? Yes Information not available 07/02/2022 What Is Your Relationship Status? Information not available 07/02/2022 Do You Use Your Seat Belt Or Car Seat Routinely? Yes Information not available 07/02/2022 Do You Have Smoke And Carbon Monoxide Detectors In Your Home? Yes Information not available 07/02/2022 Are You Passively Exposed To Smoke? No Information no t available 07/02/2022 Are There Any Smokers In Your House? No Information not available 07/02/2022 Do You Participate In Social Media? No Information not available 07/02/2022 Do You Use Sunscreen Routinely? No Information not available 07/02/2022 Has Tobacco Cessation Counseling Been Provided? No Information not available 07/02/2022 Have You Recently Traveled Abroad? No Information not available 07/02/2022 Do You Have Difficulty Walking Or Climbing Stairs? Yes Information not available 07/02/2022 Are You Currently In School? No Information not available 07/02/2022 Do You Have Any Dietary Restrictions? Yes Information not available 07/02/2022 Sex: Unknown Functional Status Question Answer Note LastModified by [employer] ion Details LastModified Time Do you use any illicit or recreational drugs? No Information not available 07/02/2022 Do you or have you ever used any other forms of tobacco or nicotine? No Information not available 07/02/2022 What is your level of alcohol consumption? None Information not available 07/02/2022 Are you currently employed? No Information not available 07/02/2022 Are you able to walk independently without assistance or assistive devices? YESWOREST Information not available 07/02/2022 Do you have difficulty doing errands alone? No Information not available 07/02/2022 Do you have difficulty dressing, bathing, grooming, or toileting? No Information not available 07/02/2022 Mental Status Question Answer Note LastModified by Organization D etails LastModified Time Do you have difficulty concentrating, remembering or making decisions? No Information no t available 07/02/2022 Family History Relationship Description Onset Age of this Age Resolved Age Notes LastModified by Organization Details LastModified Time Mother Family history of diabetes mellitus type 2 [email or web address] Not available 2022 10:36:49 Mother Family history of breast cancer [email or web address] Not available 2022 10:36:52 Father Family history of Hypertension [email or web address] Not available 03/2023 10:36:55 Unspecified Relation Family history of Depression [email or web address] Not available 11/12 10:36:58 Unspecified Relation Family history of clinical finding [email or web address] Not available 2022 10:37:01 Unspecified Relation Family history of Myocardial infarction [email or web address] Not available 11/12 10:37:05 Medical History Condition Response Allergies (Food, seasonal, environmental ) Y Diabetes Y Hospitalizations N Acid Reflux (GERD) Y Emergency room visit since last appointm ent. N Stroke Y Hypertension Y Hypothyroidism Y Gynecological History Statement/Question Response Date of Last Pap Smear 10/07/2016 Most Recent Mammogram 12/22/2024 Obstetrics History GPAL:G 0 P 0 0 0 0 Immunizations Vaccine Type Date Status Note Provider Nam e and Address Organization Details Recorded Time Influenza, high-dose, quadrivalent, PF 3 completed Shantel Stack, MARKETING PROFESSIONAL [address] [place] [address], [id number], [employer] 07/08/2023 15:19:03 zoster recombinant 4 completed Meli Gallardo, MARKETING PROFESSIONAL [address] [place] [address], [address] [place] [address], [employer] 03/22/2024 22:40:12 pneumococcal polysaccharide PPV23 4 completed Meli Gallardo MARKET[employer] PROFESSION[employer] [address] [place], [address], [employer] 06/21/2024 15:45:20 Influenza, high-dose, trivalent, PF 4 completed Meli Gallardo, MARKET[employer] PROFESSION[employer] [address] [place], [address], [employer] 07/07/2024 16:31:15 COVID-19, mRNA, LNP-S, PF, 100 mcg/0.5mL dose or 50 mcg/0.25mL dose 1 completed ADY solano, [employer] 10/09/2022 11:27:51 COVID-19, mRNA, LNP-S, PF, 100 mcg/0.5mL dose or 50 mcg/0.25mL dose 1 completed ADY MYNEAR null, [employer] 10/09/2022 11:27:51 Influenza, split virus, quadrivalent, preservative 8 completed ADY MYNEAR null, [employer] 10/09/2022 11:27:51 Influenza, split virus, trivalent, preservative 7 completed Not Available [facility] 11/04/2023 12:52:24 Hep A, adult 9 completed ADY MYNEAR null, [employer] 10/09/2022 11:27:52 Hep A, adult 9 completed Not Available [facility] 06/12/2022 23:57:18 Influenza, MDCK, quadrivalent, preservative 9 completed ADY MYNEAR null, [employer] 10/09/2022 11:27:52 Influenza, split virus, quadrivalent, preservative 0 completed ADY MYNEAR null, [employer] 10/09/2022 11:27:51 Influenza, recombinant, quadrivalent, PF 1 completed ADY MYNEAR null, [employer] 10/09/2022 11:27:51 Influenza, split virus, trivalent, preservative 0 completed ADY MYNEAR null, [employer] 10/09/2022 11:27:51 Influenza, split virus, trivalent, preservative 2 completed ADY MYNEAR null, [employer] 10/09/2022 11:27:51 Influenza, split virus, quadrivalent, PF 2 completed ADY MYNEAR null, [employer] 10/09/2022 11:27:52 Tdap 1 completed ADY MYNEAR null, [employer] 10/09/2022 11:27:52 COVID-19, mRNA, LNP-S, PF, 100 mcg/0.5mL dose or 50 mcg/0.25mL dose 1 completed ADY solano, [facility] [employer] 10/09/2022 11:27:52 zoster recombinant 5 completed ADY GOMESNEADulce null, [facility] [employer] 04/27/2025 10:52:09 Influenza, split virus, trivalent, PF 5 completed Judith Love null, [facility] [employer] 08/06/2025 17:13:28 Past Encounters Encounter ID Performer Location Encounter Start Date Encounter Closed Date Diagnosis/Indication Diagnosis SNOMED-CT Code Diagnosis ICD10 Code Diagnosis IMO Codes Diagnosis [place] [id number] [place] [address] 06/29/2022 14:40:35 06/29/2022 14:59:07 Influenza vaccine needed [id number] 106 Z23 [id number] Meli Gallardo [place] [address] 0 07/02/2022 08:52:51 07/02/2022 10:26:13 Pain of right knee region 6791023958 95990 M17.11 [id number] Meli Gallardo [place] [address] 10/09/2022 10:54:49 10/09/2022 12:29:50 Mononeuropathy due to type 2 diabetes mellitus 789103818 E11.41 Order Dexcom, Meds as below. DM diet, exercise and weight loss emphasized . [id number] Meli Gallardo [address] 0 11/12/2022 13:48:04 11/12/2022 14:37:27 Gastroesophageal reflux disease without esophagitis 893318244 K21.9 Severe nocturnal reflux with vomiting despite use of H2 cy and PPI. Mass of left breast 1224 027038 5248696 N63.20 Obtain dx mammo and left breast [place]. [id number] [place] [address] 12/19/2022 07:49:40 12/19/2022 09:05:39 Adult health examination 041378027 Z00.00 BSE reviewed and recommende d . Reviewed calcium needs, exercise, and prevention of osteoporos is . Periodic colonoscop y screening recommende d . Reviewed normal menopause and menopausal symptoms . Mammogram recommende d yearly . Body mass index 30+ - obesity 503183611 Z68.34 Hearing loss 40879586 H9 1.93 [id number] [place] [address] 01/07/2023 10:36:01 01/07/2023 12:01:44 Type 2 diabetes mellitus without complication 953403687 E11.9 Continue current medication s. COntinue ADA low carb diet, exercise and weight loss. Generalize d anxiety disorder 89661426 F41.1 Mixed hyperlipidemia 267 531436 E78.2 Vitamin D deficiency 347 69218 E55.9 Essential hypertension 16890255 I10 Hypothyroidism 04173922 E03.9 [id number] [place] [address] 0 04/10/2023 10:38:24 04/10/2023 12:01:16 Mononeuropathy due to type 2 diabetes mellitus 699653011 E11.41 Continue Dexcom, Meds as below. DM diet, exercise and weight loss emphasized . Has done well losing weight and reducing her A1c with Ozempic. [id number] [place] [address] 0 06/12/2023 10:28:38 06/12/2023 11:20:53 Diverticulitis of colon 383379056 K57.32 Finish all cipro and flagyl and start daily fiber regimen. Avoid all seeds and corn products. Colonoscop y is UTD. [id number] Shantel Stack [place] [id number] 07/08/2023 13:23:51 07/08/2023 14:30:19 Administration of influenza vaccine 30064628 Z23 [id number] Meli Gallardo [place] [address] 0 09/17/2023 08:08:51 09/17/2023 09:23:38 Mononeuropathy due to type 2 diabetes mellitus 569279303 E11.41 She could not tolerate GLP-1 Ozempic due to GI side effects. We Will restart Januvia. Vitamin D deficiency 347 54034 E55.9 Hypothyroidism 56551834 E03.9 Continue Synthroid. Insomnia 823622008 G47.0 0 Trazodone prn for sleep. Sleep hygiene and med use explained. [id number] Meli Gallardo [place] [address] 0 11/04/2023 12:51:24 11/04/2023 13:51:19 Acute upper respiratory infection [id number] J06.9 Patient presented with symptoms of upper respirator y infection. Advised to drink plenty of fluids, run a cool-mist humidifier in room at night, gargle salt water for sore throat, and get plenty of rest. Patient should avoid over-exert ion and reduce exposure to irritants such as smoke, cold, dry air, and dust. Treatment currently involves symptomati c relief. Patient may take acetaminop hen or ibuprofen as directed to reduce fever and body aches. Antihistam ine and decongesta nt usage was discussed and recommenda tions made. Patient understood these instructio ns and will follow up in the office in 10 days to 2 weeks if symptoms not improving. [id number] Meli Gallardo MARKETING PROFESSIONAL [place] [address] 0 12/17/2023 07:59:37 12/17/2023 09:23:43 Renal disorder due to type 2 diabetes mellitus 786380448 E11.21 No med changes today. Low carb low fat diet and weight loss were encouraged . Keep Cardio and Neuro appts. Cerebrovas cular accident [id number] I63.9 [id number] Meli Gallardo [place] [address] 0 03/18/2024 07:55:23 03/18/2024 09:29:22 Adult health examination 035494243 Z00.00 Patient presented to office today for their Medicare Annual Wellness Visit. Education was provided on healthy nutrition, including a diet rich in fruits and vegetables , minimizing simple carbohydra jaiden, salt, and saturated fats. Encouraged regular cardiovasc ular exercise such as walking at least 30 minutes daily, 5 times per week. Emphasized preventive health measures and educated pt on fall prevention and community- based lifestyle interventi ons to help reduce health risks and promote healthy living. Mononeurop athy due to type 2 diabetes mellitus 170310488 E11.41 Vitamin D deficiency 347 96892 E55.9 Mixed hyperlipidemia 267 839396 E78.2 Continue statin and repatha Generalize d anxiety disorder 19720680 F41.1 Continue celexa and buspar. Benign ess ential hypertension 9924420 I10 Hypothyroidism 60737619 E03.9 Continue Synthroid. Active or passive immunization 760057624 Z23 [id number] [place] [address] 0 06/17/2024 08:09:40 06/17/2024 09:57:40 Mononeuropathy due to type 2 diabetes mellitus 396764192 E11.41 Increase Insulin to 50 units BID. Peripheral neuropathy due to type 2 diabetes mellitus 5209954483 107 E11.42 Active or passive immunization 221343872 Z23 [id number] Meli Sami [place] [address] 0 07/07/2024 16:00:06 07/07/2024 16:13:22 Administration of influenza vaccine 04890789 Z23 [id number] Meli Gallardo [place] [address] 0 07/08/2024 10:23:28 07/08/2024 10:53:45 Radiculopathy due to lumbar intervertebral disc disorder 3038428638 25981 M51.16 Chronic - Right leg radiation. Start trial low dose gabapentin at bedtime. She has failed other options and is not a surgical candidate. CRISTAL reviewed, UDS obtained. intermediate teacher controlled substance agreement signed. Risk vs benefit and potential side effects of medication discussed. [id number] Meli Gallardo [address] [address] 10/14/2024 10:09:08 10/14/2024 11:27:03 Mononeuropathy due to type 2 diabetes mellitus 848466084 E11.41 Has reduced insulin requiremen ts, continue to hold ozempic in the post op period as directed. Gastrointe stinal hemorrhage 48289423 K92.2 Bleeding was due to internal hemorrhoid s and she is scheduled for banding in December. Continue to keep stools soft. Also recommende d she take a multivitam in daily, and increase her oral intake with liquid protein supplement s. We will recheck her H&H and today to follow-up on any anemia due to the bleeding. Acquired hypothyroidism 832606042 E03.9 Essential hypertension 63646290 I10 Hold lasix and may need to reduce amlodipine to 5 mg while her oral intake is poor postoperat ively. Body mass index 30+ - obesity 552013737 Z68.34 [id number] Meli Gallardo [address] [address] 10/20/2024 16:08:08 10/26/2024 13:45:24 Pain in left foot 4742011591 98908 M79.672 XR unclear as to new or old fracture of accessory ossicle. Was treated with colchicine and has not improved. She was placed in a walking boot in clinic and will RICE. She cannot take NSAIDS due to recent GI surgery. Will obtain CT Foot for more detailed imaging. She cannot have MRI due to bladder stimulator . [id number] Meli Sami [address] [address] 12/11/2024 13:20:15 12/11/2024 14:29:51 Dysuria 47646073 R30.0 Right flank pain 4857950 09 R10.9 Patient presents with a 2 day history of abdominal pain. Continuing conservati ve management at this time. This includes:r est eating a bland diet and avoiding alcohol until symptoms subside. Patient was advised to contact their doctor or nearest Emergency Department if they have any of the following symptoms: pain increases or moves to one location, vomiting and/or diarrhea, fever over 100.5, blood in vomit or bowel movements, weakness or dizziness, chest or back pain, cough or trouble breathing or any new/concer litzy symptoms. Screening mammography 24 092987 Z12.31 [id number] Meli [address] [address] 01/01/2025 08:04:12 01/01/2025 09:25:22 Adult health examination 100588747 Z00.00 Patient presented to office today for their Medicare Annual Wellness Visit. Education was provided on healthy nutrition, including a diet rich in fruits and vegetables , minimizing simple carbohydra jaiden, salt, and saturated fats. Encouraged regular cardiovasc ular exercise such as walking at least 30 minutes daily, 5 times per week. Emphasized preventive health measures and educated pt on fall prevention and community- based lifestyle interventi ons to help reduce health risks and promote healthy living. Mononeurop athy due to type 2 diabetes mellitus 800691701 E11.41 Has reduced insulin requiremen ts, continue to hold ozempic in the post op period as directed. Lumbosacra l radiculopathy 5768235 M54.16 Cannot have MRI due to bladder stimulator . Cannot take nsaids due to recent hiatal repair. Cannot take steroids due to diabetes. Gabapentin trial was not effective. Body mass index 30+ - obesity 243489670 Z68.34 [id number] Meli [address] [address] 04/13/2025 14:51:33 04/13/2025 15:29:05 Acute left otitis media 644713546 H66.92 [id number] Continue Flonase and antihistam ine. Complete anti course. [id number] Meli Gallardo [address] [address] 04/27/2025 08:52:48 04/27/2025 11:03:22 Mononeuropathy due to type 2 diabetes mellitus 798334703 E11.41 No med changes today. DM diet and increasing activity encouraged . Essential hypertension 62383652 I10 38797 Mixed hyperlipidemia 267 034391 E78.2 Continue statin and repatha Vitamin D deficiency 347 33876 E55.9 Generalize d anxiety disorder 89469480 F41.1 Continue celexa and buspar. Active immunization 3387 9002 Z23 35009470 [id number] [place] [address] 08/06/2025 15:47:16 08/09/2025 10:33:17 Mononeuropathy due to type 2 diabetes mellitus 435938320 E11.41 Increase 70/30 to 20 units BID. DM diet and increasing activity encouraged . Continue use of Dexcom, she is to update me on her glucose levels in 3 days for further insulin titration. Radiculopa thy due to lumbar intervertebral disc disorder 5352162943 79014 M51.16 Increase gabapentin to 600 mg TID and refill short course lortab, cristal reviewed. Keep PT and Neurosurge ry appts next week. Hypothyroidism 21215422 E03.9 20256963 TSH 17, T4 0.7 in ER on 08/02/25. Increase Synthroid to 150 mcg daily. Influenza vaccination given 9246572493 9109 Z23 [id number] [id number] [place] [address] 0 09/06/2025 10:01:34 09/06/2025 11:03:54 COVID-19 708775680 U07.9 [id number] We will exam both antiviral therapies and antibiotic therapies as a previous 2 times she has had COVID she has developed pneumonia and required hospitaliz ation. She was instructed on use of Mucinex and the inhaler at home with increased fluid intake isolation and fever control. She was advised if her symptoms progress that she should report to the emergency room. Health Concerns Section Related Observation LastModified by Organization Detai ls LastModified Time None Recorded Concern Status LastModified by Organization Details LastModified Time None Recorded Advance Directives Directive N: Payers Insurance Date Sequence Insurance Name Policy Number Policy Monreal Covered Member ID Monreal Member ID Guarantor Name 09/06/2025 1 [facility] - DUAL ELIGIBLE (MEDICARE REPLACEMENT/A DVANTAGE - HMO) DARI Olvera [id number] April Olvera 09/06/2025 [place] [employer] - [facility] DARI Olvera [id number] April Olvera 09/06/2025 [place] [facility] WR[facility]ILLING (MEDICAID) DARI Olvera [id number] April Olvera 09/06/2025 2 [employer] [place] (MEDICAID HMO) April Caruso Wade [id number] Arpil Olvera Notes Date Note Type Note Provider Name and Address Organization Details Recorded Time 01/02/20 25 text/htm l Annual WellnessReported by PatientSocial/Behavioral HistoryFor diet and nutrition, patient reportsdiet is high in saltandhigh carbohydrate mealsbut reportsdiscussed vitamin and supplement use,discussed portion control,discussed maintaining calcium balance, anddiscussed diet improvement. For physical activity, patient reportsdoes not exercise on a regular basisbut reportsdiscussed weightbearing activities. For additional lifestyle factors, patient reportsno tobacco useandno alcohol intake.Mental Status:For depression risk, patient reportshistory of mood disordersbut reportsnever feels sad, empty, or tearful,no loss of interest in activities,no significant changes in weight,no sleep disturbances or insomnia,no agitation,no loss of energy,no feelings of worthlessness or guilt, andno thoughts of suicide.Functional AbilityFor hearing, patient reportsno loss of hearing. For vision, patient reportsno vision problems(dm eye exam is utd). Diabetes F/UReported by PatientHPIFor associated symptoms, patient reportsnumbness of feet. For review finger sticks, patient reportsfastinandpost dinner: 210. For labs, patient reportslast a1c result: 7. For context, patient reportsseeing eye doctor regularly,checking feet regularly,taking aspirin daily,not missing doses of medications, andno side effects from medications. Back PainReported by PatientHPIFor location, patient reportsradiation to leg rightbut reportslumbar midline. For severity, patient reportsworsening,pain level 7/10, andinterferes with sleep. For associated symptoms, patient reportsnumbnessandtinglingbut reportsno fever,no weakness,no shortness of breath,no unintentional weight loss,no chills,no night sweats,no recent increase in stress,no bowel dysfunction, andno bladder dysfunction. For quality, patient reportssharp,shooting, andburning. For duration, patient reports3 years. For timing, patient reportschronicandrecurrent episode. For context, patient reportsatraumatic,prior back problems, andprevious evaluation by specialist. For alleviating factors, patient reportsnone(has had mris, done pt, seen neurosurgery, had epidural steroid injections). For aggravating factors, patient reportsextending back,pushing,pulling,sitting,s tanding, andexercise. For previous injury, patient reportsno prior back injury. For prior imaging, patient reportsct scan,mri, andxray.ROS as noted in the HPI Meli Gallardo APRN [address] [place] [address], [id number], [facility] [employer] 01/01/2025 11:38:59 04/13/20 25 text/htm l Ear Pain Brief HPIReported by PatientHPIFor quality, patient reportsaching painbut reportsno itching,no discharge from the ears, andno burning. For severity, patient reportsinterferes with daily activitiesandinterferes with ability to sleepbut reportsno fever,getting worse, andmild pain. For associated symptoms, patient reportssense of fullness/pressureandmuffled hearingbut reportsno vertigo,no jaw popping or clicking,no temporomandibular joint disease,no discharge from ear,no nasal congestion,no nasal discharge,no hearing loss,no sore throat,no dental pain,no jaw pain, andno tinnitus. For location, patient reportsleft. For onset/timing, patient reportsnew onsetandgradual onset. For duration, patient reportssensation/episode variable length. For context, patient reportsno recent uri,no recent trauma,no recent ear infection,no recent swimming,no immunocompromise,no dental problems,no recent airplane travel,no scuba diving,non-smoker, andseasonal allergic rhinitis. For alleviating factors, patient reportsnasal steroid sprayandantihistamine.ROS as noted in the HPI Meli Gallardo APRN [address] [place], [address], [employer] 04/18/2025 17:25:12 04/27/20 25 text/htm l Diabetes F/UReported by PatientHPIFor associated symptoms, patient reportsnumbness of feet. For review finger sticks, patient reportsfastinandpost dinner: 210. For labs, patient reportslast a1c result: 7. For context, patient reportsseeing eye doctor regularly,checking feet regularly,taking aspirin daily,not missing doses of medications, andno side effects from medications. HyperlipidemiaReported by PatientHPIFor duration, patient reportschronic. For control, patient reportsnot at goal. For adherence to treatment plan, patient reportsdoes not follow recommended dietanddoes not exercisebut reportstakes medications as prescribed. For complications, patient reportscoronary artery diseaseandcardiovascular disease. For risk factors, patient reportsfamily history of premature arteriosclerotic cardiovascular disease,diabetes,hypertension, obesity,low hdl level,coronary artery calcifications, andconsumption of saturated fats and trans-fatty acids. Hypertension F/UReported by PatientHPIFor lifestyle, patient reportsnot exercising regularlybut reportslimits sodium intake. For medications, patient reportstaking medications as directedandno side effects from medication. For associated symptoms, patient reportsno dizziness,no lightheadedness,no chest pain,no shortness of breath,no palpitations,no edema,no calf pain with exertion, andno headache.ROS as noted in the HPI Doing well on SRI and bus par for DIEGO. Has Hx vit D deficiency. Meli Gallardo APRN [address] [place], [address], [employer], [employer] 05/09/2025 18:53:41 08/06/20 25 text/htm l ROS as noted in the HPI Chief ComplaintLumbar back pain with radiation to big toe following L4-L5 lumbar discectomy surgery in January, chest pain and shortness of breath on August 02History of Present Yuko Olvera presents for follow-up of multiple medical conditions including lumbar back pain, chest pain with shortness of breath, and diabetes management following two recent emergency department visits this week.The patient went to the emergency department on July 30 for lumbar back pain and returned on August 02 for chest pain and shortness of breath. Her lumbar back pain is related to previous L4-L5 surgery performed in January, with pain radiating down to her right great toe. The steroids, Toradol, and Lyrica rx'd by ER provided no relief for her back pain. She has completed her course of steroids and toradol.Regarding her diabetes management, her blood sugar was significantly elevated at 436 during her hospital visit, with an A1c of 9.0 today, indicating poor glycemic control likely exacerbated by recent steroid use. Her ER visit for SOA and CP was unremarkable with no cause for her sx noted and no further change to her tx plan that date in the ER. Meli Gallardo APRN [address] [place], [address], [employer] 08/06/2025 18:02:19 09/06/20 25 text/htm l Upper Respiratory SymptomsReported by PatientUpper Respiratory SymptomsFor quality, patient reportscongested,dry cough,wheezy cough,hurts to swallow, andnasal discharge. For context, patient reportssick contact,asthma, andimmunocompromised. For associated symptoms, patient reportsfatigue,fever,morning cough,sore throat,nausea,headache,chills, andmalaisebut reportsno chest pain,no shortness of breath, andno wheezing. For location, patient reportshead,chest,throat, andnasal. For severity, patient reportsmoderate. For duration, patient reportssymptoms lasting less than 2 weeks. For onset/timing, patient reportssudden(4 days).ROS as noted in the HPI Meli Gallardo APRN [address] [place], [address], [employer] 09/06/2025 17:39:09 OBGyn Episode No OBEpisode recorded.
--- OUTSIDE RECORDS SUMMARY | 2025-09-29 11:16 | XMS_ITS | Encounter Summary ---
Author Organization Healthcare Address [address] [place] [address] Care Team Providers Care Snath Handle Assembler Name Role Phone Meli Gallardo MIGUEL ANGEL Primary Care Provider [phone] Tito Sue MD Unavailable [phone] Encounter Details Date Type Department Care Team (Late st Contact Info) Description 09/08/2025 Telephone [place] [facility] [address] [place] [address] Tito Sue MD [address] [place] [address] Social History Tobacco Use Types [...] Recorded Patient Health Questionnaire-2 Score 0 02/24/2024 [facility] - Occupational Stress Questionnaire Answer Date Recorded [...] any time in the past 12 m [facility], were you homeless or living in a alf (including now)? No 05/18/2025 CAGE ASSESSMENT Answer [...] drink first t allison in the morning (EYE-LARGE SHEETFED PRESS OPERATOR) to steady your nerves or to get rid of a hangover? 0 10/01/2024 CAGE Questionnaire Score 0 024 Utilities Answer Date Recorded In the past 12 months has th e [employer], gas, oil, or water [employer] threatened to shut off services in your home? No 05/18/2025 Comments No Sex and Gender Information Value Date Recorded Sex Assigned at Female 10/02/2023 1:40 PM EST Legal Sex Female 7:54 PM EDT Gender Identity Female 10/02/2023 1:40 PM EST Sexual Orientation Straight 02/08/2023 6: 04 AM EDT documented as of this encounter Miscellaneous Notes * Telephone Encounter - Josué Chavez - 09/14/2025 2:07 PM EST 09/14/2025 - 2:07PM 3rd attempt made to reach patient/ Cannot reach patient when called. - When called patient's telephone line states mail box is full and will not accept any messages. * Telephone Encounter - Josué Chavez - 09/10/2025 2:03 PM EST 09/10/2025 - 2:04PM // 2nd Attempt made // Left Message for 2nd time * Telephone Encounter - Josué Chavez - 09/08/2025 4:53 PM EST 09/08/2025 - 4:52PM // LMSG- Voicemail for patient to call back and discuss rescheduling. - LMSG/Voicemail for patient to call back regarding rescheduling appointment. Patient advised via voicemail message to call: between 8:00am to 4:00pm (Mon.-Fri.) * Telephone Encounter - iMk Agustin - 09/08/2025 10:02 AM EST Patient Phone Message Reason for Call: Patient calling to schedule follow up with Dr. Sue Best contact number and optimal time of day to reach caller: [phone] Note: Please do not reply to this message. Follow-up communication and further actions as a result of this message need to be communicated with the patient directly, if the patient is not active onMyChart. If the patient is active on MyChart, they will receive notification of the communication/outcome via [employer] FP[employer]. documented in this encounter Plan of Treatment Not on file documented as of this encounter Goals Goal Patient Goal Type Associated Problems Recent Progress Patient-Stated? Author Autojesus serna Goal Care Plan Autogenerated Problem [...] documented as of this encounter Care Teams Snath Handle Assembler Relationship Specialty Start Date End Date Meli Gallardo APRN [id number] PCP - General 02/17/21 Tito Sue MD [address] [place] [address] Surgeon Neurosurgery 07/21/25 documented as of this encounter
--- OUTSIDE RECORDS SUMMARY | 2025-09-29 11:17 | XMS_ITS | Encounter Summary ---
Author Organization [facility] ([place], [place], [place], [place], [place]) Address [address] [place] [address] Care Team Providers Care Sizer Machine Name Role Phone Meli Gallardo APRN Primary Care Provider [phone] Encounter Details Date Type Department Care Team (Late st Contact Info) Description 01/13/2024 Telephone [facility] Neurology - [address] [place] [address] Mely Gaviria APRN [address] [place] [address] Social History Tobacco Use Types [...] Do you speak a language other than [place] [facility]? No 12/04/2023 Do you want help [...] on filedocumented in this encounter Care Teams Sizer Machine Relationship Specialty Start Date End Date Meli Gallardo, MIGUEL ANGEL PCP - General Family Medicine 10/31/22 documented as of this encounter
--- OUTSIDE RECORDS SUMMARY | 2025-09-29 11:17 | XMS_ITS | Encounter Summary ---
Author Organization Healthcare Address [address] [place] [address] Care Team Providers Care Video Editing Internship Name Role Phone Sami Meli MIGUEL ANGEL Primary Care Provider [phone] Tito Sue MD Unavailable [phone] Encounter Details Date Type Department Care Team (Late st Contact Info) Description 04/06/2025 Orders Only External Location [address] [place] [address] Provider, External Social History Tobacco Use Types Packs/Day Years [...] week 10/02/2024 How often do you attend [facility] or restorationist services? Never 10/02/2024 Do you belong to any clubs o r organizations such as orthodoxy groups, unions, fraternal or athletic groups, or [...] Recorded Patient Health Questionnaire-2 Score 0 02/24/2024 [facility] - [...] in the past 12 m [facility], were you homeless or living [...] drink first t allison in the morning (EYE-SWABBER) to steady your nerves or to get rid of a hangover? 0 10/01/2024 CAGE Questionnaire Score 0 024 Utilities Answer Date Recorded In the past 12 months has [employer], gas, oil, or water [employer] threatened to shut off services in your [...] Name Priority Date/Time Associated Diagnosis Comments CT OUTSIDE IMAGES 04/06/2025 9:09 AM EDT documented in this encounter Results * CT OUTSIDE IMAGES (04/06/2025 9:09 AM EDT) Anatomical Region Laterality Modality Computed Tomogra phy 04/06/2025 9:09 AM EDT us External Provider IMG CT PROCEDURES Final Result documented in this encounter Visit Diagnoses Not on filedocumented in this encounter Additional Health Concerns Active Problems Noted Date Diagnosed Date Autogenerated Problem 05/10/2025 Assessment Noted Time A fall risk assessment has been complete d for the patient 02/19/2025 8:19 AM EDT A Body Mass Index follow-up plan has been documented for the patient 02/19/2025 2:55 PM EDT documented as of this encounter Care Teams Video Editing Internship Relationship Specialty Start Date End Date Meli Gallardo APRN [id number] PCP - General 02/17/21 Tito Sue MD [address] [place] [address] Surgeon Neurosurgery 07/21/25 documented as of this encounter
--- OUTSIDE RECORDS SUMMARY | 2025-09-29 11:17 | XMS_ITS | Continuity of Care Document ---
Author Organization [place] - [employer] [facility] Address [address] [place] [address] Assessment No assessment recorded. Plan of Treatment Reminders Order Date Submit Date Provider Last Modified By Organization Details Last Modified Time Details Appointments None recorded. Lab rapid influenza virus A + B and SARS CoV + SARS CoV 2 Ag panel, [place], upper respiratory specimen 2024 [email or web address] [facility], [address] [place] [address], [phone], 10:58:12 Referral None recorded. Procedures None recorded. Surgeries None recorded. Imaging None recorded. Medication Orders doxycycline monohydrate 100 mg capsule 2024 [facility], [address] [place] [address], [address], 12:06:55 Paxlovid 150 mg-100 mg tablets in a dose pack (Moderate Renal Dose) 2024 [facility], [address] [place] [address], [address], 05:01:44 prednisone 20 mg tablet 2024 [facility], [address] [place] [address], [address], 05:01:44 albuterol sulfate HFA 90 mcg/actuati on aerosol inhaler 2024 [facility], [address] [place] [address], [id number], 12:06:53 Patient TargetsNo targets recorded. Patient InstructionsNo instructions recorded. Reason for Referral None Reported. Results Created Date Observation Date Name Description Value Unit Range Abnormal Flag Note LastModifiedBy Organization Detail LastModifiedTime 09/06/20 25 09/06/2025 rapid influ brayden virus A + B and SARS CoV + SARS CoV 2 Ag panel , [place], upper respi rator y speci men SARS-CoV2 positi ve Not Available [address], [address], 09/06/2025 10:20:24 09/06/20 25 09/06/2025 rapid influ brayden virus A + B and SARS CoV + SARS CoV 2 Ag panel , [place], upper respi rator y speci men Flu A negati ve Not Available [address], [address], 09/06/2025 10:20:24 09/06/20 25 09/06/2025 rapid influ brayden virus A + B and SARS CoV + SARS CoV 2 Ag panel , [place], upper respi rator y speci men Flu B negati ve Not Available [address], [address], 09/06/2025 10:20:24 Result Notes None recorded. Problems Name Problem SNOMED Code Status Onset Date Resolution Date Notes Provider Name and Address Organization Details Recorded Time Wheezing [id number] Completed 201609/11/2017 Problem Code: R06.2; Problem Code Type: ICD-10; Not Available [facility] 22:05:38 Gastroes ophageal reflux disease without esophagi tis 661803436 Completed 201610/30/2017 Not Available [facility] 22:05:37 Gastroes ophageal reflux disease 516154858 Completed 201601/31/2018 Problem Code: 530.81; Problem Code Type: ICD-9; Not Available [facility] 2 22:05:44 Influenz a 4992699 Completed 201710/30/2017 Problem Code: J10.1; Problem Code Type: ICD-10; Not Available [facility] 2 22:05:36 Acute bronchit is 59242144 Completed 201710/30/2017 Problem Code: J20.8; Problem Code Type: ICD-10; ADY solano, [employer] 2 09:28:05 Influenz a with respirat ory manifest ation other than pneumoni a Completed 201710/30/2017 Problem Code: 487.1; Problem Code Type: ICD-9; Not Available [facility] 2 22:05:47 Breast neoplasm screenin g status 492710494 Completed 201712/29/2017 Problem Code: Z12.39; Problem Code Type: ICD-10; Not Available [facility] 2 22:05:39 Screenin g for malignan t neoplasm of breast Completed 201712/29/2017 Problem Code: V76.10; Problem Code Type: ICD-9; Not Available [facility] 2 22:05:46 Acute cystitis 97737326 Completed 201712/20/2017 Problem Code: N30.00; Problem Code Type: ICD-10; Not Available [facility] 2 22:05:38 Low back pain 317429018 Completed 201712/23/2017 Problem Code: M54.5; Problem Code Type: ICD-10; ADY solano, [employer] 2 09:28:05 Back problem 160516664 Completed 201712/23/2017 Problem Code: 724.8; Problem Code Type: ICD-9; Not Available [facility] 2 22:05:48 Plane wart 137802866 Completed 201704/01/2018 Problem Code: B07.8; Problem Code Type: ICD-10; Not Available [facility] 2 22:05:34 Atrophy of thyroid - acquired 705430721 Completed 201710/11/2018 Problem Code: E03.4; Problem Code Type: ICD-10; Not Available [facility] 2 22:05:34 Mixed hyperlip idemia 916448104 Active 2017 Problem Code: E78.2; Problem Code Type: ICD-10; Not Available [facility] 2 22:05:35 Generali zed anxiety disorder 49592734 Active 2017 Problem Code: F41.1; Problem Code Type: ICD-10; Not Available [facility] 2 22:05:35 Hyperten sive disorder 74562340 Completed 201705/05/2018 Problem Code: I10; Problem Code Type: ICD-10; Not Available [facility] 2 22:05:35 Acquired hypothyr oidism 878233015 Completed 201708/06/2018 Problem Code: 244.8; Problem Code Type: ICD-9; Not Available [facility] 2 22:05:42 Verruca vulgaris 35145256 Completed 201704/01/2018 Problem Code: 078.19; Problem Code Type: ICD-9; Not Available [facility] 2 22:05:43 Benign essentia l hyperten gerber 9285592 Active 2017 Problem Code: 401.1; Problem Code Type: ICD-9; Not Available [facility] 2 22:05:44 Verruca vulgaris 95422509 Completed 201704/05/2018 Problem Code: B07.9; Problem Code Type: ICD-10; Not Available [facility] 2 22:05:34 Acute sinusiti s 90731609 Completed 201704/09/2018 Problem Code: J01.90; Problem Code Type: ICD-10; ADY solano [facility] [employer] 2 09:28:05 Otitis externa 4491810 Completed 201706/03/2018 Problem Code: H60.339; Problem Code Type: ICD-10; Not Available [facility] 2 22:05:35 Otitis externa of right ear 83883422521 02534 Completed 201710/13/2018 Problem Code: H60.331; Problem Code Type: ICD-10; Not Available [facility] 2 22:05:35 Acute swimmer' s ear Completed 201706/03/2018 Problem Code: 380.12; Problem Code Type: ICD-9; Not Available [facility] 2 22:05:44 Dizzines s and giddines s 766933354 Completed 201710/13/2018 Problem Code: 780.4; Problem Code Type: ICD-9; Not Available [facility] 2 22:05:45 Focal oral mucinosi s 480383539 Completed 201708/19/2018 Problem Code: K13.79; Problem Code Type: ICD-10; Not Available [facility] 2 22:05:37 Lumbosac ral radiculo chalino 2255438 Active 2017 Problem Code: M54.16; Problem Code Type: ICD-10; Not Available [facility] 2 22:05:37 Disorder of oral soft tissues 85504978 Completed 201708/19/2018 Problem Code: 528.9; Problem Code Type: ICD-9; Not Available [facility] 2 22:05:44 Vitamin D deficien cy 43265347 Active 2017 Problem Code: E55.9; Problem Code Type: ICD-10; Not Available [facility] 2 22:05:35 Pain of intercos brandon space 346871365 Completed 201710/13/2018 Problem Code: R07.82; Problem Code Type: ICD-10; Not Available [facility] 2 22:05:38 Chest pain 44235474 Completed 201710/13/2018 Problem Code: 786.59; Problem Code Type: ICD-9; Not Available [facility] 2 22:05:45 Myositis 38669623 Completed 201810/25/2018 Problem Code: M60.9; Problem Code Type: ICD-10; Not Available [facility] 2 22:05:38 Fibromyo sitis 75322984 Completed 201810/25/2018 Problem Code: 729.1; Problem Code Type: ICD-9; Not Available [facility] 2 22:05:45 Nummular eczema 61317326 Completed 201808/01/2020 Problem Code: L30.0; Problem Code Type: ICD-10; Not Available [facility] 2 22:05:37 Screenin g mammogra phy Completed 201804/28/2019 Problem Code: Z12.31; Problem Code Type: ICD-10; ADY solano, [employer] 2 09:28:05 Bronchop neumonia 981109603 Completed 201804/28/2019 Problem Code: J18.0; Problem Code Type: ICD-10; Not Available [facility] 2 22:05:36 Abscess of abdomina l wall 63923594 Completed 201804/28/2019 Problem Code: L02.211; Problem Code Type: ICD-10; Not Available [facility] 2 22:05:37 Influenz a vaccine needed 26852656183 06 Completed 201804/28/2019 Problem Code: Z23; Problem Code Type: ICD-10; ADY solano, [employer] 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 2 09:28:05 Chemical pneumoni tis caused by anesthes ia 65795432475 472713 Completed 201807/02/2022 ADY solano, [employer] 2 09:28:05 Influenz a vaccine needed 61079658678 06 Completed 201808/01/2020 Problem Code: Z23; Problem Code Type: ICD-10; ADY solano, [employer] 2 09:28:05 General examinat ion of patient Active 2019 Not Available [facility] 2 22:05:38 Screenin g mammogra phy Completed 201907/02/2022 Problem Code: Z12.31; Problem Code Type: ICD-10; ADY solano, [employer] 2 09:28:05 Acute frontal sinusiti s 29123412 Completed 201908/01/2020 Problem Code: J01.11; Problem Code Type: ICD-10; ADY solano, [employer] 2 09:28:05 Screenin g mammogra phy Completed 201907/12/2020 Problem Code: Z12.31; Problem Code Type: ICD-10; ADY solano, [employer] 2 09:28:05 Disorder of upper respirat ory system 969285167 Completed 201901/31/2021 Problem Code: J06.9; Problem Code Type: ICD-10; Not Available [facility] 2 22:05:36 Influenz a vaccine needed 71417927436 06 Completed 201908/01/2020 Problem Code: Z23; Problem Code Type: ICD-10; ADY BAIG null, [employer] 2 09:28:05 Viral pneumoni a 53458058 Completed 201907/02/2022 Problem Code: J12.89; Problem Code Type: ICD-10; ADY READR null, [employer] 09:28:05 Acute sinusiti s 10828110 Completed 202007/02/2022 Problem Code: J01.90; Problem Code Type: ICD-10; ADY READR null, [employer] 09:28:05 Body mass index 30+ - obesity 936409266 Active 2020 Problem Code: Z68.34; Problem Code Type: ICD-10; Not Available [facility] 22:05:42 Low back pain 138296753 Completed 202007/02/2022 Problem Code: M54.5; Problem Code Type: ICD-10; ADY READR null, [employer] 09:28:05 Acute bronchit is 87652920 Completed 202007/02/2022 Problem Code: J20.9; Problem Code Type: ICD-10; ADY READR null, [employer] 09:28:05 Influenz a vaccine needed 00545364974 06 Completed 202007/02/2022 Problem Code: Z23; Problem Code Type: ICD-10; ADY READR null, [employer] 09:28:05 Abscess of limb 876157261 Completed 202107/02/2022 Problem Code: L02.415; Problem Code Type: ICD-10; ADY GOMESNEAR null, [employer] 09:28:05 Radiculo chalino due to lumbar interver tebral disc disorder 20218564984 9105 Active 2023 Meli Gallardo, [employer] [address] [place], [address] , [employer] 4 10:32:09 Essentia l hyperten gerber 58010194 Active 2024 Meli Gallardo MIGUEL ANGEL [address] [place] [address], [address] , [employer] 09:56:57 Hypothyr oidism 64435888 Active 2024 Meli GallardoJAVADN [address] [place], [address] , [employer] 16:14:59 COVID-19 770477927 Active 2024 Meli CherJAVADN [address] [place] [address], [address] , [employer] 10:48:35 Notes:*Problem Name: Incompl ete rotator cuff tear or rupture of right shoulder, not specified as traumatic *Problem Status: Chronic *Comments: *Problem Code: M75.111 *Problem Code Type: ICD-10 *Note Date: 11/01/2021 Some problems listed in Documents: #[id number], #[id number] could not be added to this patient's chart. Please review these documents and add these problems to the patient's chart manually as needed. Problem Notes None recorded. Procedures Surgical History Date Name Laterality Status Provider Name and Address Organization Details Recorded Time 025 Most Recent Mammogram completed ADY BAIG [employer] 01/01/2025 08:24:08 024 implantation of insertable loop recorder completed Meli aGllardo APRN [address] [place] [address], [address], [employer] 05/20/2024 16:49:29 023 cardiac catheterization completed Meli Gallardo APRN [address] [place] [address], [address], [employer] 01/07/2023 14:35:31 019 screening colonoscopy completed Myra Laura [employer] 12/17/2022 10:33:56 017 hysterectomy completed Not Available [facility] 06/12/2022 22:56:08 017 Date of Last Pap Smear completed ADY Audience[employer]fmR [employer] 07/02/2022 09:29:20 Gallbladder Surgery completed YOMI A [employer] 07/02/2022 09:32:24 Carpal tunnel surgery completed ADY [employer] 07/02/2022 09:32:35 Hemorrhoidectomy completed ADY [employer] 07/02/2022 09:32:46 Knee arthroscopy/surgery completed ADY [employer] 07/02/2022 09:33:23 procedure on elbow completed ADY [employer] 07/02/2022 09:33:43 thyroidectomy completed ADY [employer] 07/02/2022 09:33:57 Imaging Results None recorded. Procedure Notes None recorded. Medical Equipment None Reported. Allergies Allergen ID Allergen Name Allergen Category Reaction Reaction Severity Criticality Documentation Date Start Date Code Code System Note Provider Name and Address Organization Details Recorded Time 17562 Product containin g penicilli n (product) medicatio n Not available Not available Not available 06/12/2022 00999 8001 SNWegoWisemitzy Laura [employer], [employer] 3 13:50:04 63825 Substance with sulfonami de structure and antibacte rial mechanism of action (substanc e) medicatio n Not available Not available Not available 06/12/2022 14848 8003 SNOMED Myramitzy Laura [employer], [employer] 3 13:50:07 12376 Premarin medicatio n Not available Not available Not available 06/12/2022 29994 6 RxNorm Not Available [facility] 2 22:54:21 27718 morphine sulfate medicatio n Not available Not available Not available 06/12/2022 30045 RxNorm Not Available [facility] 2 22:54:22 30437 erythromy radha medicatio n Not available Not available Not available 06/12/2022 4053 RxNorm Not Available [facility] 2 22:54:22 64435 Zyrtec medicatio n Not available Not available Not available 06/12/2022 04594 RxNorm Not Available [facility] 2 22:54:22 07002 codeine medicatio n Not available Not available Not available 07/02/2022 2670 RxNorm ADY solano [place] - [employer] 2 09:22:53 73774 codeine phosphate medicatio n Not available Not available Not available 09/06/20252007 2672 RxNorm Not Available [employer] - [employer] - prod 5 10:08:20 60613 azithromy radha medicatio n rash Not available low 09/06/20252017 30685 RxNorm Not Available yeni [employer] - prod 5 10:08:25 78614 cephalexi n medicatio n hives rash Not available Not available low 09/06/20252017 2231 RxNorm Not Available [employer] - prod 5 10:08:25 59943 morphine medicatio n palpitati ons Not available low 09/06/20252017 7052 RxNorm Hear t beat reall y fast Not Available [employer] - prod 5 10:08:25 41563 estrogens , conjugate d (LONGTERM) medicatio n other Not available low 09/06/20252021 4099 RxNorm BLE numbn ess Not Available [employer] - prod 5 10:08:25 57930 cetirizin e medicatio n rash Not available low 09/06/20252017 64154 RxNorm Not Available [employer] - prod 5 10:08:25 99099 penicilli n V Not available Not available Not available Not available 09/06/2025 7984 RxNorm unrec ogniz ed react ion (text : Adver se react ion to subst ance, code: 96314 0009) , moder ate (from exter nal sourc e) Not Available [employer] - prod 5 10:18:25 18362 amoxicill in medicatio n rash Not available low 09/06/20252020 723 RxNorm Not Available [employer] - prod 5 10:18:30 09183 Product containin g estrogen receptor agonist (product) medicatio n other Not available low 09/06/20252014 84252 003 SNOMED numbn ess Not Available [employer] - prod 5 10:18:30 83094 penicilli n G Not available hives Not available high 09/06/20252024 7980 RxNorm Not Available [employer] - prod 5 10:18:30 81074 Product containin g 3-hydroxy -3-methyl glutaryl- coenzyme A reductase inhibitor (product) medicatio n hives rash Not available Not available high 09/06/20252024 90369 009 SNOMED [place] kareem liver enzym es Not Available [employer] - [employer] - prod 5 10:18:30 12339 sulfaceta mide medicatio n dyspnea hives rash Not available Not available Not available high 09/06/20252009 61266 RxNorm Not Available [employer] - prod 5 10:18:30 Medications Name Sig Start Date Stop [...] active Not Available Not Available Not Avai romy aloglipti n 25 mg tablet take 1 [...] Available Not Available Not Available Dexcom G6 Fire Control Mechanic USE DIRECTED . active Not Available Not Available No t Available Dexcom G6 Transmitt er device USE DIRECTED active Not Available Not Available No t Available baclofen 5 mg tablet take 1 tablet (5 mg) by oral route 3 times per day 07/02 completed Not Available Not Available Not Available BD Martha 2nd Gen Pen Needle 32 gauge x 5/32 USE TWICE DAILY WITH INSULIN active Not Available Not Available No t Available Flucelvax Quad 9382-3536 60 mcg (15 mcg x 4)/0.5 mL [...] Updated DateTime 5 154.94 cm 33.8 kg/m2 85596.0 3 g 97.3 [degF] 105 /min 94 % 105/67 mm[Hg] ADY BAIG [employer] 5 10:19:50 Social History Question Answer Notes LastModified by Organizat ion Details LastModified Time Tobacco Smoking Status Never Smoker Myra solano, [employer] 11/12/2022 10:37:22 Do You Have An [...] Do You Have A Medical Power Of Dye Room Helper? No Information not available 07/02/2022 What Was [...] Functional Status Question Answer Note LastModified by Organizat ion Details LastModified Time Do you use [...] high-dose, quadrivalent, PF 3 completed Shantel Stack, [employer] [address] [place], [address], [employer] 07/08/2023 15:19:03 zoster recombinant 4 completed Meli Gallardo, [employer] [address] [place], [address], [employer] 03/22/2024 22:40:12 pneumococcal polysaccharide PPV23 4 completed Meli Gallardo, [employer] [address] [place], [address], [employer] 06/21/2024 15:45:20 Influenza, high-dose, trivalent, PF 4 completed Meli Gallardo, [employer]IG[employer] [address] [place], [address], [employer] 07/07/2024 16:31:15 COVID-19, mRNA, LNP-S, PF, 100 mcg/0.5mL dose or 50 mcg/0.25mL dose 1 completed ADY MYNEAR null, [employer] 10/09/2022 11:27:51 COVID-19, mRNA, LNP-S, PF, 100 mcg/0.5mL dose or 50 mcg/0.25mL dose 1 completed ADY MYNEAR null, [employer] 10/09/2022 11:27:51 Influenza, split virus, quadrivalent, preservative 8 completed ADY MYNEAR null, [employer] 10/09/2022 11:27:51 Influenza, split virus, trivalent, preservative 7 completed Not Available [facility] 11/04/2023 12:52:24 Hep A, adult 9 completed ADY MYNEAR null, [employer] 10/09/2022 11:27:52 Hep A, adult 9 completed Not Available [facility] 06/12/2022 23:57:18 Influenza, MDCK, quadrivalent, preservative 9 completed ADY MYNEAR null, [employer] 10/09/2022 11:27:52 Influenza, split virus, quadrivalent, preservative 0 completed ADY MYNEAR null, [employer] 10/09/2022 11:27:51 Influenza, recombinant, quadrivalent, PF 1 completed ADY MYNEAR null, [employer] 10/09/2022 11:27:51 Influenza, split virus, trivalent, preservative 0 completed ADY MYNEAR null, [employer] 10/09/2022 11:27:51 Influenza, split virus, trivalent, preservative 2 completed ADY MYNEAR null, [employer] 10/09/2022 11:27:51 Influenza, split virus, quadrivalent, PF 2 completed ADY MYNEAR null, [employer] 10/09/2022 11:27:52 Tdap 1 completed ADY MYNEAR null, [employer] 10/09/2022 11:27:52 COVID-19, mRNA, LNP-S, PF, 100 mcg/0.5mL dose or 50 mcg/0.25mL dose 1 completed ADY MYNEAR null, [employer] 10/09/2022 11:27:52 zoster recombinant 5 completed ADY MYNEAR null, [employer] 04/27/2025 10:52:09 Influenza, split virus, trivalent, PF 5 completed Judith Love null, [employer] 08/06/2025 17:13:28 Past Encounters Encounter ID Performer Location Encounter Start Date Encounter Closed Date Diagnosis/Indication Diagnosis SNOMED-CT Code Diagnosis ICD10 Code Diagnosis IMO Codes Diagnosis Note [id number] Meli Gallardo APRN [facility] [address] [address] 09/06/2025 10:01:34 09/06/2025 11:03:54 COVID-19 [id number] U07.4 [id number] We will exam both antiviral therapies and [...] by Organization Details LastModified Time None Recorded Payers Encounter Date Sequence Insurance Name Policy Number Policy Monreal Covered Member ID Monreal Member ID Guarantor Name 09/06/2025 2 [facility] (MEDICAID HMO) April Olvera [id number] April Olvera 09/06/2025 1 [facility] - DUAL ELIGIBLE (MEDICARE REPLACEMENT/A DVANTAGE - HMO) DARI Olvera [id number] April Olvera Notes Date Note Type Note Provider Name and Address Organization Details Recorded Time 5 text/html Upper Respiratory SymptomsReported by PatientUpper Respiratory SymptomsFor quality, patient reportscongested,dry cough,wheezy cough,hurts to swallow, andnasal discharge. For context, patient reportssick contact,asthma, andimmunocompromised. For associated symptoms, patient reportsfatigue,fever,morn ing cough,sore throat,nausea,headache,ch ills, andmalaisebut reportsno chest pain,no shortness of breath, andno wheezing. For location, patient reportshead,chest,throat, andnasal. For severity, patient reportsmoderate. For duration, patient reportssymptoms lasting less than 2 weeks. For onset/timing, patient reportssudden(4 days).ROS as noted in the HPI Meli Gallardo APRN [address] [place], [address], [place] [facility] [employer] 09/06/2025 17:39:09 OBGyn Episode No OBEpisode recorded.
--- OUTSIDE RECORDS SUMMARY | 2025-09-29 11:17 | XMS_ITS | Encounter Summary ---
Author Organization [facility] Address [address] [id number] Care Team Providers Care Information Scientist Name Role Phone Sami Meli MIGUEL ANGEL Primary Care Provider [phone] Tito Sue MD Unavailable [phone] Reason for Referral * Consultation (Routine) - Authorized Specialty Diagnoses / Procedures Referred By Contpari t Referred To Contact Endodontics / Dentistry Diagnoses Extraction of tooth needed Nisa Wilks DMD [address] [place] [address] Phone: tel: fax: [facility] [address] [place] [address] Phone: tel: fax: Referral ID Status Reason Start Date Expiration Date Visits Requested Visits Authorized [id number] Authorized Specialty Services Required 2025 10/20/2026 1 1 Encounter Details Date Type Department Care Team (Late st Contact Info) Description 2025 Community Orders Community Practice [address] [place] [address] Nisa Wilks DMD [address] [place], [place] [id number] Extraction of tooth needed (Primary Dx) Social History Tobacco Use Types [...] week 10/02/2024 How often do you attend [facility] or anglican services? Never 10/02/2024 Do you belong to any clubs o r organizations such as restoration groups, unions, fraternal or athletic groups, or [...] Recorded Patient Health Questionnaire-2 Score 0 02/24/2024 [facility] Occupat ional [facility] - Occupational Stress [...] any time in the past 12 m [facility], were you homeless or living in a long-term (including now)? 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 Author Autogenerat ed Goal Care Plan Autogenerated Problem No Radha Duran documented as of this encounter Visit Diagnoses Diagnosis Extraction of tooth needed- Primary documented in this encounter Additional Health Concerns Active Problems Noted Date Diagnosed Date Autogenerated Problem 05/10/2025 Assessment Noted Time A fall risk assessment has been complete d for the patient 02/19/2025 8:19 AM EDT A Body Mass Index follow-up plan has been documented for the patient 02/19/2025 2:55 PM EDT documented as of this encounter Care Teams Information Scientist Relationship Specialty Start Date End Date Meli Gallardo APRN [id number] PCP - General 02/17/21 Tito Sue MD [address] [address] Surgeon Neurosurgery 07/21/25 documented as of this encounter
--- OUTSIDE RECORDS SUMMARY | 2025-09-29 11:17 | XMS_ITS | Clinical Summary ---
Author Organization [employer] ([place], [place], [place], [place], [place]) Address [address] [place] [address] Care Team Providers Care Handle Attacher Name Role Phone Meli Gallardo APRN Primary Care Provider [phone] Allergies Active Allergy Reactions Criticality Noted Date [...] (20 mg total) by mouth daily. 12/03/19 23 Active empagliflozin (Jardiance) 25 mg tablet Take [...] (75 mg total) by mouth daily. 10/31/19 23 Active fluticasone propionate (FLONASE) 50 mcg/actuation nasal [...] Do you speak a language other than [place] at [facility]? No 12/04/2023 Do you want help [...] Colorectal Cancer Screening 1958 DXA SCAN 1958 FOBT/FIT 1958 Fit-DNA (Cologuard) 1958 Sigmoidoscopy 1958 Depression Screening (12+) 1970 Hepatitis C Screening 1976 Breast Cancer Screening 1998 Pneumococcal 50+ years (1 of 1 - PCV) 2008 Shingles Vaccine (Zoster) (1 of 2) 2008 Respiratory Syncytial Virus (RSV) Adult or (1 - Risk 60-74 years 1-dose series) 2018 DTAP/TDAP/TD VACCINES (2 - T d or Tdap) 10/09/2020 10/09/2010 Falls Risk Screening 10/07/2024 Tobacco Cessation Counseling and Screening (12+) 12/03/2024 12/03/2023 COVID-19 VACCINE ( - 2024-2 6 season) 2025 08/03/2021, 12/29/2020, 12/01/2020 Influenza Vaccine (#1) 2025 3, 06/29/2022, 06/28/2021, Additional history exists Insurance [facility] DUAL COMPLETE MCR ADV [facility] MEDICARE ADVANTAGE Advance Directives For more information, please contact: [phone] * Full Code (Latest Code Status on File) Date Activated Date Inactivated Comments 12/03/2023 8:33 PM 12/05/2023 6:12 PM Care Teams Handle Attacher Relationship Specialty Start Date End Date Meli Gallardo, HOME STAGING SPECIALIST PCP - General Family Medicine 10/31/22
--- OUTSIDE RECORDS SUMMARY | 2025-09-29 11:17 | XMS_ITS | Encounter Summary ---
Author Organization [facility] Address [address] [place] [address] Care Team Providers Care Wildlife Science Professor Name Role Phone Meli Gallardo TANDEM OPERATOR Primary Care Provider Tito Sue MD Unavailable [phone] Reason for Visit * Reason Comments Med Refill Encounter Details Date Type Department Care Team (Late st Contact Info) Description 08/31/2021 [facility] [address] [place] [address] Debbie Patel, TANDEM OPERATOR [address] [facility] [address] [place] [address] Social History Tobacco Use Types [...] documented as of this encounter Care Teams Wildlife Science Professor Relationship Specialty Start Date End Date Meli Gallardo APRN [id number] PCP - General 02/17/21 Tito Sue MD [address] [place] [id number] Surgeon Neurosurgery 07/21/25 documented as of this encounter
--- OUTSIDE RECORDS SUMMARY | 2025-09-29 11:17 | XMS_ITS | Clinical Summary ---
Author Organization [facility] Address [address] [place] [address] Care Team Providers Care Summer Child Caregiver Name Role Phone GallardoMeli barnett MIGUEL ANGEL Primary Care Provider [phone] Tito Sue MD Unavailable [phone] Allergies Active Allergy Reactions Criticality Noted Date [...] Sulfacetamide Shortness of breath,Hives,Rash High 12/04/2009 Medications levothyroxine (Synthroid, Levoxyl) 137 MCG tablet Take 1 tablet by mouth daily. Active lisinopril 20 MG tablet Take 1 tablet by mouth daily. Active aspirin 81 MG EC tablet Take 1 tablet by mouth daily. Active busPIRone (Buspar) 10 MG tablet Take 1 tablet by mouth 3 times a day. Active amLODIPine (Norvasc) 10 MG tablet Take 1 tablet by mouth daily. Active atorvastatin (Lipitor) 40 MG tablet Take 1 tablet by mouth every evening. 4 Active ergocalciferol 1.25 MG (80777 UT) capsule Take 1 capsule by mouth 1 time per week. Active pen needle, diabetic 31G X 5 MM misc Use as directed with insulin pen. 100 each 11 4 Active fluticasone (Flonase) 50 MCG/ACT nasal spray Administer 2 sprays into each nostril daily. Active citalopram (CeleXA) 40 MG tablet Take 1 tablet by mouth daily. Active naloxone (Narcan) 4 mg/0.1 mL nasal spray 1. Give 1 spray in nostril for no/slow breathing or cannot wake after opioid use 2. Call 911 3. Repeat in other nostril if symptoms continue 1 each 5 Active pantoprazole (Protonix) 40 MG EC tablet Take 1 tablet by mouth 2 times a day. Do not crush, chew, or split. Active cyanocobalamin 50 MCG tablet Take 1 tablet by mouth daily. Active Evolocumab (Repatha SureClick) 140 MG/ML solution auto-injector autoinjector INJECT 1 DOSE UNDER THE SKIN EVERY 2 WEEKS Active furosemide (Lasix) 20 MG tablet Take 1 tablet by mouth daily. Active Semaglutide, 1 MG/DOSE, (Ozempic, 1 MG/DOSE,) 4 MG/3ML solution pen-injector Inject 1 mg under the skin 1 time per week. Active senna-docusate (Mona-Colace) 8.6-50 MG tablet Take 2 tablets by mouth 2 times a day. 20 tablet 5 Active cyclobenzaprine (Flexeril) 5 MG tablet Take 1 tablet by mouth 3 times a day as needed for muscle spasms. 30 tablet 5 Active pregabalin (Lyrica) 150 MG capsule Take 1 capsule by mouth 2 times a day. 60 capsule 2 5 Active bisacodyl (Bisacodyl EC) 5 MG EC tablet Take all 4 tablets at 4 PM on day before colonoscopy IF INSURANCE DOES NOT COVER, please inform pt to purchase OTC 4 tablet 5 Active polyethylene glycol (GoLYTELY) 236 g solution SEE PHARMACY NOTES FOR PATIENT LABEL INSTRUCTIONS- for Colonoscopy prep protocol 4000 mL Active Active Problems Problem Noted Date Diagnosed Date Right sided sciatica 07/31/2025 Assessment & Plan (07/31/2025 11:03 AM EDT): Patient has persistently worsening lumbar back pain [...] hyperglycemia - Lidocaine 5% patches for back Obesity (BMI 30-39.9) 05/18/2025 Assessment & Plan (05/19/2025 6:56 AM EDT): - BMI 32.49 - May complicate some aspects of care. Assessment & Plan (05/18/2025 6:35 AM EDT): - BMI 32.49 - May complicate some aspects of care. S/P lumbar spinal fusion 05/17/2025 Assessment & Plan (05/19/2025 6:56 AM EDT): - 05/17 s/p L4-5 fusion + TLIF - 05/18 XR Lumbar Spine: See findings above - Continue additional multimodal PO pain control with lidocaine patches and PRN tylenol, flexeril, norco. - Continue to monitor hemovac drain output. - Continue antibiotic while drain is in place. - Starting POD #2, dressing will need to be changed every 48 hours. The incision is to be covered at all times with dressing until POD #7. - When showering, until the dressing can be removed completely, dressing should stay on and be covered with Press and Seal. - Last BM 05/19. Continue daily bowel regimen. - Resume home meds as able. - No NSAIDs x 12 weeks following fusion surgery. - PT/OT following to assist with mobility following surgery and for discharge dispo evaluation. Recommend home with assistance and rolling walker. - Nursing to assist patient out of bed to the chair at each meal time/evening and with ambulation in the hallway 3 times a day. Assessment & Plan (05/18/2025 2:09 PM EDT): - 05/17 s/p L4-5 fusion + TLIF - 8/ XR Lumbar Spine: See findings above - Discontinue GIS MAPPING TECHNICIAN. Initiated Luquillo 1 tab q4hr PRN. - Continue additional multimodal PO pain control with PRN tylenol and flexeril. Added lidocaine patches. - Continue to monitor hemovac drain output. - Should have antibiotic while drain is in place. Added clindamycin 600 mg q8hr. - Starting POD #2, dressing will need to be changed every 48 hours. The incision is to be covered at all times with dressing until POD #7. - When showering, until the dressing can be removed completely, dressing should stay on and be covered with Press and Seal. - Increased daily bowel regimen. - Resume home meds as able. - No NSAIDs x 12 weeks following fusion surgery. - PT/OT consulted to assist with mobility following surgery and for discharge dispo evaluation. Recommend home with assistance and rolling walker. - Nursing to assist patient out of bed to the chair at each meal time/evening and with ambulation in the hallway 3 times a day. Assessment & Plan (05/18/2025 6:35 AM EDT): - 05/17 s/p L4-5 fusion + TLIF - f/u XR - Discontinue GIS MAPPING TECHNICIAN. Initiated Luquillo 1 tab q4hr PRN. - Continue additional multimodal PO pain control with PRN tylenol and flexeril. - Continue to monitor YAMILE drain output. - Should have antibiotic while drain is in place. Added clindamycin 600 mg q8hr. - Starting POD #2, dressing will need to be changed every 48 hours. The incision is to be covered at all times with dressing until POD #7. - When showering, until the dressing can be removed completely, dressing should stay on and be covered with Press and Seal. - Increased daily bowel regimen. - Resume home meds as able. - No NSAIDs x 12 weeks following fusion surgery. - PT/OT consulted to assist with mobility following surgery and for discharge dispo evaluation. Appreciate recommendations. - Nursing to assist patient out of bed to the chair at each meal time/evening and with ambulation in the hallway 3 times a day. Acute left otitis media 04/13/2025 Hemangioma of skin and subcutaneous tissue 02/08 Inflamed seborrheic keratosis 02/08/2025 Other specified erythematous conditions 02/09/20 25 Bleeding grade II hemorrhoids 12/23/2024 Localized edema 11/27/2024 Other instability, left ankle 11/27/2024 Pain in left foot 11/27/2024 Hemorrhage of anus and rectum 10/03/2024 Residual hemorrhoidal skin tags 10/03/2024 Type 2 diabetes mellitus wit h diabetic peripheral angiopathy without gangrene 10/03/2024 Melena 10/02/2024 Gastric ulcer, unspecified a s acute or [...] apnea Essential hypertension 04/13/2021 Assessment & Plan (05/19/2025 6:56 AM EDT): - Continue to monitor BP. - Resume home meds when deemed appropriate. Assessment & Plan (05/18/2025 6:35 AM EDT): - Continue to monitor BP. - Resume home meds when deemed appropriate. Assessment & Plan (02/05/2025 11:19 AM EDT): - Goal blood pressure < 130/80 mmHg - Medication titration to goal as tolerated - Home blood pressure log discussed - I recommended that the patient check their blood pressure multiple times per week for PCP/my review in an effort to optimize medication titration to goal - Orthostatic precautions were discussed in detail History of hypothyroidism 04/13/2021 Assessment & Plan (05/19/2025 6:56 AM EDT): - Continue home synthroid. Assessment & Plan (05/18/2025 6:35 AM EDT): - Resumed home synthroid. Type 2 diabetes mellitus 04/13/2021 Assessment & Plan (05/19/2025 6:56 AM EDT): - 8/7 HgbA1c 7.2% - FSBS achs - Diabetic diet. - Has SSI ordered. - Continue Lispro TID with meals. Assessment & Plan (05/18/2025 2:09 PM EDT): - 8/7 HgbA1c 7.2% - FSBS achs - Diabetic diet. - Has SSI ordered. - Lispro TID with meals added. Assessment & Plan (05/18/2025 6:35 AM EDT): - 8/7 HgbA1c 7.2% - FSBS achs - Diabetic diet. - Has SSI ordered. Gastroesophageal reflux disease 04/13/2021 Assessment & Plan (05/19/2025 6:56 AM EDT): - Continue home protonix. Assessment & Plan (05/18/2025 6:35 AM EDT): - Resumed home protonix. TIA (transient ischemic attack) 04/13/2021 Assessment & [...] Problem Code: F41.1; Problem Code Type: ICD-10; Assessment & Plan (05/19/2025 6:56 AM EDT): - Continue home celexa and buspar. Assessment & Plan (05/18/2025 6:35 AM EDT): - Resumed home celexa and buspar. Verruca plana 01/31/2018 Overview (03/26/2024): Problem Code: [...] modifications discussed Mixed dyslipidemia Assessment & Plan (05/19/2025 6:56 AM EDT): - Continue home atorvastatin. Assessment & Plan (05/18/2025 6:35 AM EDT): - Resumed home atorvastatin. Assessment & Plan (02/05/2025 11:21 AM EDT): [...] unspecified 01/10/2024 Paresthesia of skin 01/03/2024 02/02/20 Weakness 01/03/2024 10/03/2024 Occlusion and stenosis of bi lateral carotid arteries 12/31/2023 10/03/2024 Palpitations 12/23/2023 02/01/2025 Other disturbances of skin sensation 12/03/2023 10/03/2024 Atrial premature depolarization 06/24/2023 02/01/2025 Pain in right shoulder 03/13/202310/03 Arthralgia of knee 07/11/2022 Vascular problem 04/13/2021 10/03/2024 Peripheral vascular disease 04/13/2021 02/01/2025 Paraesophageal hernia 04/13/20212024 Obesity 04/13/2021 02/01/2025 Kidney stone 04/13/2021 02/01/2025 Mixed incontinence 03/31/2021 Overview (03/31/2021): Added automatically from request for surgery [id number] Urinary urgency 03/31/2021 10/03/2024 Overview (03/31/2021): Added automatically from request for surgery [id number] Urinary frequency 03/31/2021 02/01/2025 Overview (03/31/2021): Added automatically from request for surgery [id number] Viral pneumonia 08/01/2020 10/03/2024 Overview (03/26/2024): Problem [...] Encounters Date Type Department Care Team Description 09/15/2025 1:10 PM EST - 09/15/2025 11:59 PM EST Hospital Encounter Cardiac Imaging [address] [place] [address] History of loop recorder Discharge Disposition: Home or Self Care 09/15/2025 Travel 09/08/2025 Telephone [facility] [address], [address] [place] [phone] Tito Sue MD 08/18/2025 Telephone [facility] [address], [address] [place] [address] Tito Sue MD 08/12/2025 4:19 PM EST - 08/12/2025 11:59 PM EST Hospital Encounter Cardiac Imaging [address] [place] [address] History of loop recorder Discharge Disposition: Home or Self Care 08/12/2025 Travel 08/02/2025 1:45 PM EDT - 08/02/2025 6:35 PM EDT Emergency [facility] Department [address] [place] [address] Sav Paulino MD Dahlgren, Amy E, MD Shortness of breath (Primary Dx); Chest pain, unspecified type Discharge Disposition: Home or Self Care 08/02/2025 Travel 07/30/2025 7:43 PM EDT - 07/31/2025 3:30 PM EDT Hospital Encounter [facility] A Emergency Department [address] [place] [id number] Mack Rivas MD Cruz, Angelo A, MD Hamm, Joel M, MD Right sided sciatica (Primary Dx) Discharge Disposition: Home or Self Care 07/30/2025 Travel 07/21/2025 10:21 AM EDT - 07/21/2025 11:59 PM EDT Hospital Encounter [facility] [address], [address] [place] [phone] S/P lumbar fusion Discharge Disposition: Home or Self Care 07/21/2025 10:15 AM EDT Office Visit [facility] [address] [place] [address] Tito Sue MD S/P lumbar fusion (Primary Dx); Follow-up examination after neurological surgery 07/21/2025 Travel 07/20/2025 7:32 AM EDT Anesthesia Event [facility] End[facility] [address] [place] [address] Vinnie Pantoja MD 07/20/2025 6:36 AM EDT - 07/20/2025 11:59 PM EDT Hospital Encounter [facility] [address] [place] [address] Douglas White MD Fletcher, Charles J, CRNA Jovero, Bonnabille, RN Gastrointestinal hemorrhage associated with anorectal source Discharge Disposition: Home or Self Care 07/20/2025 Travel 07/12/2025 2:25 PM EDT - 07/12/2025 11:59 PM EDT Hospital Encounter Cardiac Imaging [address] [place] [address] Implantable loop recorder present Discharge Disposition: Home or Self Care 07/12/2025 Travel 07/12/2025 Telephone [place] [facility] [address] [place] [address] Tito Sue MD H[facility] - Patient Message (Rs appt) from Last 3 Months Immunizations Immunization Administration [...] Not Answered Alcohol Use Standard Drinks/Week Comments Never 0 [...] How often do you attend chur or yazidi services? Never 10/02/2024 Do you belong to [...] Recorded Patient Health Questionnaire-2 Score 0 02/24/2024 [facility] - [...] any time in the past 12 m [facility], were you homeless or living in a detention (including now)? 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 0 10/01/2024 CAGE Questionnaire Score 0 024 Utilities Answer Date Recorded In the past 12 months has th e [employer], gas, oil, or water Appointedd threatened to shut off services in your [...] Mass Index 31.55 08/02/2025 2:25 PM EDT Plan of Treatment Health Maintenance Due Date Last Done Comments [facility]-Bone Density Scan 1960 [facility]-Medicare Annual Wellness (AWV) 1960 [facility]-Infant/Child/Adol SDOH Screenings 1960 Diabetes: Dental Exam 1968 CT Colonography 2003 FIT-DNA 2003 FIT 2003 FOBT 2003 Sigmoidoscopy 2003 [facility]-RSV Vaccine: 60+ Years or (1 - Risk 50-74 years 1-dose series) 2008 [facility]-DTaP,Tdap,and Td Vaccines (2 - Td or Tdap) 10/09/2020 10/09/2010 [facility]-Depression Screening 02/23/2025 02/24/2024 [id number] Vaccine (4 - season) 2025 08/03/2021, 12/29/2020, 12/01/2020 [facility]-Pneumococcal Vaccine: 50+ Years (2 of 2 - PCV) 06/17/2025 06/17/2024 [facility]-Diabetes: Hemoglobin A1C 08/12/202504/2025, 08/13/2022, 01/30/2021, Additional history exists [facility]- SDOH Screenings 11/18/2025 [facility]-Adult SDOH Screenings 11/18/2025 05/18/2025 Colonoscopy 07/20/2035 07/20/2025, 09/07, 06/24/2019, Additional history exists [facility]-Colorectal Cancer Screening 07/20/2035 [facility]-Hepatitis A Vaccines Aged Out 04/16/2019, 02/2019 No longer eligible based on patient's age to complete this topic [facility]-Hepatitis C Screening Completed 2023, 02/03/2021, 07/18/2020, Additional history exists [facility]-Zoster Vaccines Completed 04/27/2025, [facility]-Obesity Intervention Completed 025, 06/15/2025, 05/13/2025, Additional history exists [facility]-Influenza Vaccine Completed 08/06/2025 , 07/07/2024, 07/08/2023, Additional history exists HPV Vaccines (No Doses Required) Completed [facility]-HIB Vaccines Aged Out No longer e [...] Care Plan Autogenerated Problem No [employer] Implanted Type Area Director Of Assessing Device Identifier Shelf Expiration Date Model / Serial / Lot Post Ibf Ui H 10mm 8deg 02/07 - [id number] - [id number] Implanted:Qty: 1 on 05/17/2025 by Tito Sue MD at [facility] Cage N/A: Spine Lumbar DePuy Spine Sales [id number] 02/03/2035 [id number] / Pre-Lordosed Benny W/ Line 35mm - [id number] Implanted:Qty: 2 on 05/17/2025 by Tito Sue MD at [facility] Benny N/A: Spine Lumbar DePuy Spine Sales [id number] 05/17/2026 [id number] / / Neurostimulator - [id number] - [id number] Implanted:Qty: 1 on 04/18/2021 by Kiersten Welch MD at [facility] Stem Medtronic/DLP Cardio-Pulmonar [id number] 06/03/2022 [id number] / [id number] / [id number] Bladder Stimulator Back Mesh Phasix St [id number] - [id number] Implanted:Qty: 1 on 09/18/2024 by Francisco J Amor MD at [facility] N/A: Abdomen Davol [id number] 01/01/2027 [id number] / / [id number] Single Inner Setscrew - Sna - [id number] Implanted:Qty: 4 on 05/17/2025 by Tito Sue MD at [facility] N/A: Spine Lumbar DePuy Spine Sales [id number] 05/17/2025 [id number] / NA / NA Screw 5.5mm Viper Ti Fen Crtcl Polyax 7mm X 45mm - Sna - [id number] Implanted:Qty: 2 on 05/17/2025 by Tito Sue MD at [facility] N/A: Spine Lumbar DePuy Spine Sales [id number] 05/17/2025 [id number] / NA / NA Screw 5.5mm Viper Ti Fen Crtcl Polyax 8mm X 45mm - Sna - [id number] Implanted:Qty: 1 on 05/17/2025 by Tito Sue MD at [facility] N/A: Spine Lumbar DePuy Spine Sales [id number] 05/17/2025 [id number] / NA / NA Screw 5.5mm Viper Ti Fen Crtcl Polyax 8mm X 40mm - Sna - [id number] Implanted:Qty: 1 on 05/17/2025 by Tito Sue MD at [facility] N/A: Spine Lumbar DePuy Spine Sales [id number] 05/17/2025 [id number] / NA / NA Matrix Fibergraft Bg Medium 6.25cc - [id number] Implanted:Qty: 1 on 05/17/2025 by Tito Sue MD at [facility] N/A: Spine Lumbar DePuy Spine Sales [id number] 11/26/2027 [id number] / / [id number] Procedures Procedure Name Priority Date/Time Associated Diagnosis Comments CARDIAC DEVICE CHECK - REMOTE - LOOP RECORDER (ILR) Routine 09/15/2025 4:39 PM EST History of loop recorder CARDIAC DEVICE CHECK - REMOTE - LOOP RECORDER (ILR) Routine 08/12/2025 4:36 PM EST History of loop recorder CT ANGIO PULMONARY EMBOLISM STAT 08/02/2025 3:37 PM EDT TROPONIN T, HIGH SENSITIVITY, 2 HOUR, PLASMA Timed 08/02/2025 2:27 PM EDT XR CHEST 1 VIEW STAT 08/02/2025 2:14 PM EDT FREE T4, PLASMA STAT Add-on 08/02/2025 12:28 PM EDT N-TERMINAL PROBNP, PLASMA STAT 08/02/2025 12:28 PM EDT TSH STAT 08/02/2025 12:28 PM EDT LACTATE, VENOUS STAT 08/02/2025 12:28 PM EDT CBC WITH AUTO DIFFERENTIAL STAT 08/02/2025 12:28 PM EDT TROPONIN T, HIGH SENSITIVITY, 0 HOUR, PLASMA, REFLEX TO 2 HOUR STAT 08/02/2025 12:28 PM EDT COMPREHENSIVE METABOLIC PANEL, PLASMA STAT 08/02/2025 12:28 PM EDT ECG ADULT STAT 08/02/2025 12:05 PM EDT POCT GLUCOSE METER UNSOLICITED RESULTS Routine 07/31/2025 11:33 AM EDT POCT GLUCOSE METER UNSOLICITED RESULTS Routine 07/31/2025 8:53 AM EDT POCT GLUCOSE METER UNSOLICITED RESULTS Routine 07/31/2025 3:59 AM EDT XR LUMBAR SPINE 2 OR 3 VIEWS STAT 07/30/2025 8:11 PM EDT SEDIMENTATION RATE, AUTOMATED STAT 07/30/2025 7:42 PM EDT C-REACTIVE PROTEIN, PLASMA STAT 07/30/2025 7:42 PM EDT CBC WITH AUTO DIFFERENTIAL STAT 07/30/2025 7:42 PM EDT COMPREHENSIVE METABOLIC PANEL, PLASMA STAT 07/30/2025 7:42 PM EDT XR LUMBAR SPINE 2 OR 3 VIEWS Routine 07/21/2025 10:47 AM EDT S/P lumbar fusion COLONOSCOPY Routine 07/20/2025 8:07 AM EDT Gastrointestinal hemorrhage associated with anorectal source SURGICAL PATHOLOGY EXAM Routine 07/20/2025 7:59 AM EDT Gastrointestinal hemorrhage associated with anorectal source POCT GLUCOSE METER UNSOLICITED RESULTS Routine 07/20/2025 6:55 AM EDT CARDIAC DEVICE CHECK - REMOTE - LOOP RECORDER (ILR) Routine 07/12/2025 2:25 PM EDT Implantable loop recorder present HEMOGLOBIN A1C Routine 05/13/2025 11:16 AM EDT Pre-op exam HEPATITIS C ANTIBODY - ED W/REFLEX TO HCV QUANT PCR STAT 10/01/2024 1:00 PM EST from Last 3 Months or Most Recently Relevant to Health Maintenance Results * CARDIAC DEVICE CHECK - REMOTE - LOOP RECORDER (ILR) (09/15/2025 4:39 PM EST) Only the most recent of3 resultswithin the time period is included. Anatomical Region Laterality Modality Other Narrative 09/15/2025 4:50 PM EST Implantable loop recorder (ILR) interrogation. Battery remaining in service adequate. EGM's reviewed against indication for implant and diagnosis, found to be unremarkable. Presenting rhythm is sinus. Symp event 08/29, egm demonstrates sinus rhythm. us Erica Gardiner Santoshandresherrillcriss MIGUEL ANGEL CV IMPLANTABLE CARDIAC DEV ICE PROCEDURES Final Result * CT Angio Pulmonary Embolism (08/02/2025 3:37 [...] Beth Lopez MD on 08/02/2025 4:21 PM us Sav Paulino MD IMG CT PROCEDURES Final Res ult * Troponin T, High Sensitivity, 2 Hour, Plasma (08/02/2025 2:27 PM EDT) Troponin T, High Sensitivity, 2 Hour 8 <14 ng/L 08/02/2025 3:11 PM EDT [facility] Troponin Delta Interpretation Not Calculated 08/02/2025 3:11 PM EDT [facility] Comment:Specimen not collect ed within acceptable timeframe. Delta will not be calculated. Blood Venous blood specimen / Unknown Venipuncture / Unknown 08/02/2025 2:27 PM EDT 08/02/2025 2:37 PM EDT us Umer Matos MD LAB BLOOD ORDERABLES Final Result [facility] [address] [place] [address] * XR Chest 1 View (08/02/2025 2:14 [...] signing this report, I, the attending physician, vera I have personally reviewed the images/data for the aboveexamination(s) and agree with the final edited report. Drafted by Pat Jones MD on 08/02/2025 2:25 PM Final report signed by Srinivasa Kurtz MD on 08/02/2025 2:38 PM us Umer Matos MD IMG XR PROCEDURES Fin al Result * Troponin now and 120 min (08/02/2025 12:28 PM EDT) Troponin T, High Sensitivity, 0 Hour 9 <14 ng/L 08/02/2025 1:10 PM EDT [facility] Blood Venous blood specimen / Unknown Venipuncture / Unknown 08/02/2025 12:28 PM EDT 08/02/2025 12:31 PM EDT Umer Matos MD LAB BLOOD ORDERABLES Final Result [facility] [address] [place] [address] * (ABNORMAL) Lactic acid, venous (08/02/2025 12:28 PM EDT) [facility] Lactate, Venous, Whole Blood 3.2(H) 0.5 - 2.2 mmol/L LAB HEMATOLOGY METHOD 08/02/2025 12:34 PM EDT [facility] Blood Venous blood specimen / Unknown Venipuncture / Unknown 08/02/2025 12:28 PM EDT 08/02/2025 12:34 PM EDT Umer Matos MD LAB BLOOD ORDERABLES Final Result Performing Organization Address [facility] Co de Phone Number [facility] [address] [place] [address] * BNP (08/02/2025 12:28 PM EDT) [facility] N-Terminal, PROBNP, Plasma <50 0 - 899 pg/mL 08/02/2025 1:10 PM EDT [facility] Blood Venous blood specimen / Unknown Venipuncture / Unknown 08/02/2025 12:28 PM EDT 08/02/2025 12:31 PM EDT us Umer Matos MD LAB BLOOD ORDERABLES Final Result Performing Organization Address [facility] Co de Phone Number [facility] [address] [place] [address] * (ABNORMAL) CBC w/diff (08/02/2025 12:28 PM EDT) Only the most recent of2 resultswithin the time period is included. [facility] WBC Count 5.86 3.70 - 10.30 10*3/uL LAB HEMATOLOGY METHOD 08/02/2025 12:36 PM EDT [facility] RBC Count 4.88 3.90 - 5.20 10*6/uL LAB HEMATOLOGY METHOD 08/02/2025 12:36 PM EDT [facility] HGB 14.2 11.2 - 15.7 g/dL LAB HEMATOLOGY METHOD 08/02/2025 12:36 PM EDT [facility] HCT 43.2 34.0 - 45.0 % LAB HEMATOLOGY METHOD 08/02/2025 12:36 PM EDT [facility] Platelet Count 175 155 - 369 10*3/uL LAB HEMATOLOGY METHOD 08/02/2025 12:36 PM EDT [facility] MCV 89 79 - 98 fL LAB HEMATOLOGY METHOD 08/02/2025 12:36 PM EDT [facility] MCH 29.1 26.0 - 32.0 pg LAB HEMATOLOGY METHOD 08/02/2025 12:36 PM EDT [facility] MCHC 32.9 30.7 - 35.5 g/dL LAB HEMATOLOGY METHOD 08/02/2025 12:36 PM EDT [facility] RDW 13.2 11.5 - 14.5 % LAB HEMATOLOGY METHOD 08/02/2025 12:36 PM EDT [facility] MPV 10.0 8.8 - 12.5 fL LAB HEMATOLOGY METHOD 08/02/2025 12:36 PM EDT [facility] nRBC 0.0 <=0.0 per 100 WBCs LAB HEMATOLOGY METHOD 08/02/2025 12:36 PM EDT [facility] Differential Type Automated LAB HEMATOLOGY METHOD 08/02/2025 12:36 PM EDT [facility] Neutrophils % 62 % LAB HEMATOLOGY METHOD 08/02/2025 12:36 PM EDT [facility] Lymphocytes % 29 % LAB HEMATOLOGY METHOD 08/02/2025 12:36 PM EDT [facility] Monocytes % 5 % LAB HEMATOLOGY METHOD 08/02/2025 12:36 PM EDT [facility] Eosinophils % 2 % LAB HEMATOLOGY METHOD 08/02/2025 12:36 PM EDT [facility] Basophils % 1 % LAB HEMATOLOGY METHOD 08/02/2025 12:36 PM EDT [facility] Immature Granulocytes % 1 % LAB HEMATOLOGY METHOD 08/02/2025 12:36 PM EDT [facility] Neutrophils Absolute 3.73 1.60 - 6.10 10*3/uL LAB HEMATOLOGY METHOD 08/02/2025 12:36 PM EDT [facility] Lymphocytes Absolute 1.69 1.20 - 3.90 10*3/uL LAB HEMATOLOGY METHOD 08/02/2025 12:36 PM EDT [facility] Monocytes Absolute 0.27(L) 0.30 - 0.90 10*3/uL LAB HEMATOLOGY METHOD 08/02/2025 12:36 PM EDT [facility] Eosinophils Absolute 0.09 0.00 - 0.50 10*3/uL LAB HEMATOLOGY METHOD 08/02/2025 12:36 PM EDT [facility] Basophils Absolute 0.04 0.00 - 0.10 10*3/uL LAB HEMATOLOGY METHOD 08/02/2025 12:36 PM EDT [facility] Immature Granulocytes Absolute 0.04 0.00 - 0.06 10*3/uL LAB HEMATOLOGY METHOD 08/02/2025 12:36 PM EDT [facility] Blood Venous blood specimen / Unknown Venipuncture / Unknown 08/02/2025 12:28 PM EDT 08/02/2025 12:31 PM EDT Narrative [facility] - 08/02/2025 12:36 PM EDT Therapeutic decision making should be based on absolute values, rather than percentages. us Umer Matos MD LAB BLOOD ORDERABLES Final Result Performing Organization Address City/[facility]/ZIP Co de Phone Number [facility] [address] [place] [address] * (ABNORMAL) TSH (08/02/2025 12:28 PM EDT) Thyroid Stimulating Hormone, Plasma 17.12(H) 0.40 - 4.20 uIU/mL 08/02/2025 1:10 PM EDT [facility] Blood Venous blood specimen / Unknown Venipuncture / Unknown 08/02/2025 12:28 PM EDT 08/02/2025 12:31 PM EDT Umer Matos MD LAB BLOOD ORDERABLES Final Result [facility] [address] [place] [address] * (ABNORMAL) T4, free (08/02/2025 12:28 PM EDT) Free T4, Plasma 0.7(L) 0.8 - 1.7 ng/dL 08/02/2025 2:58 PM EDT [facility] Blood Venous blood specimen / Unknown Venipuncture / Unknown 08/02/2025 12:28 PM EDT 08/02/2025 12:31 PM EDT Sav Paulino MD LAB BLOOD ORDERABLES Final Result [facility] [address] [place] [address] * (ABNORMAL) CMP (08/02/2025 12:28 PM EDT) Only the most recent of2 resultswithin the time period is included. Glucose, Plasma 290(H) 74 - 99 mg/dL 08/02/2025 1:10 PM EDT [facility] BUN, Plasma 16 8 - 23 mg/dL 08/02/2025 1:10 PM EDT [facility] Creatinine, Plasma 0.68 0.60 - 1.10 mg/dL 08/02/2025 1:10 PM EDT [facility] BUN/Creatinine Ratio 24 08/02/2025 1:10 PM EDT [facility] Sodium, Plasma 140 136 - 145 mmol/L 08/02/2025 1:10 PM EDT [facility] Potassium, Plasma 4.7 3.6 - 4.9 mmol/L 08/02/2025 1:10 PM EDT [facility] Chloride, Plasma 99 97 - 107 mmol/L 08/02/2025 1:10 PM EDT [facility] CO2, Plasma 27 22 - 29 mmol/L 08/02/2025 1:10 PM EDT [facility] Anion Gap 14 6 - 16 mmol/L 08/02/2025 1:10 PM EDT [facility] Total Calcium, Plasma 9.9 8.9 - 10.2 mg/dL 08/02/2025 1:10 PM EDT [facility] Total Protein 7.2 6.3 - 7.9 g/dL 08/02/2025 1:10 PM EDT [facility] Albumin, Plasma 4.5 3.5 - 5.2 g/dL 08/02/2025 1:10 PM EDT [facility] AST, Plasma 29 10 - 35 U/L 08/02/2025 1:10 PM EDT [facility] Comment:Hemolyzed, result ma y be falsely increased. ALT, Plasma 31 10 - 35 U/L 08/02/2025 1:10 PM EDT [facility] Alkaline Phosphatase, Plasma 102 46 - 142 U/L 08/02/2025 1:10 PM EDT [facility] Total Bilirubin, Plasma 0.4 0.2 - 1.1 mg/dL 08/02/2025 1:10 PM EDT [facility] eGFRcr 95.6 mL/min/1.7 3m*2 08/02/2025 1:10 PM EDT [facility] Comment:Reported eGFRcr in m L/min/1.73m2 is based the CKD-EPI 2020 equation that does not use a race coefficient. Blood Venous blood specimen / Unknown Venipuncture / Unknown 08/02/2025 12:28 PM EDT 08/02/2025 12:31 PM EDT Umer Matos MD LAB BLOOD ORDERABLES Final Result [facility] [address] [place] [address] * EKG now - STAT (adult) (08/02/2025 12:05 PM EDT) EKG DIAGNOSIS CLASS Abnormal MUSE ECG Ventricular Rate 86 BPM MUSE ECG Atrial Rate 86 BPM MUSE ECG VT Interval 136 ms MUSE ECG QRSD Interval 86 ms MUSE ECG QT Interval 402 ms MUSE ECG QTC Interval 481 ms MUSE ECG P Sanger 52 degrees MUSE ECG R Sanger -6 degrees MUSE ECG T Wave Sanger 11 degrees MUSE ECG Diagnosis Normal sinus rhythm MUSE ECG Diagnosis Poor R-wave progression MUSE ECG Diagnosis Nonspecific T wave abnormality MUSE ECG Diagnosis Abnormal ECG MUSE ECG Diagnosis MUSE ECG Diagnosis Confirmed by Reji Osborn ([id number]) on 08/02/2025 12:21:05 PM MUSE ECG 08/02/2025 12:0 5 PM EDT 08/02/2025 12:21 PM EDT us Umer Matos MD ECG ORDERABLES Final Result Performing Organization Address City/[facility]/ZIP Co de Phone Number MUSE ECG * (ABNORMAL) POCT glucose meter (07/31/2025 11:33 AM EDT) Only the most recent of4 resultswithin the time period is included. POCT Glucose 244(H) 74 - 99 mg/dL 07/31/2025 11:34 AM EDT [facility] Comment:Accuracy of [...] Comment 07/31/2025 11:34 AM EDT [facility] Open Developer Operator ID Sabiha Retana 07/31/2025 11:34 AM EDT [facility] Device ID [id number] 07/31/2025 11:34 AM EDT [facility] Specimen Type POC Capillary 07/31/2025 11:34 AM EDT [facility] Blood Capillary blood specimen / Unknown 07/31/2025 11:33 AM EDT 07/31/2025 11:34 AM EDT us Carl Bishop MD LAB POINT OF CARE TE ST DOCKED DEVICE UNSOLICITED RESULTS Final Result Performing Organization Address City/[facility]/ZIP Co de Phone Number [facility] [address] [place] [address] * XR Lumbar Spine 2 or 3 Views (07/30/2025 8:11 PM EDT) Only the most recent of2 resultswithin the time period is included. Anatomical Region Laterality Modality Spine, L-spine Computed [...] Pavel Devlin MD on 07/30/2025 8:29 PM Mack Rivas MD IMG XR PROCEDURES Final Result * Sed rate, automated (07/30/2025 7:42 PM EDT) Pathologist [facility] [place] Sedimentation Rate 12 <30 mm/hr 2024 8:31 PM EDT [facility] Blood Venous blood specimen / Unknown Venipuncture / Unknown 07/30/2025 7:42 PM EDT 07/30/2025 7:46 PM EDT Mack Rivas MD LAB BLOOD ORDERABLES Fi nal Result [facility] [address] [place] [address] * C-Reactive protein (07/30/2025 7:42 PM EDT) CRP, Plasma 5.2 <=8.0 mg/L 07/30/2025 8:32 PM EDT [facility] Blood Venous blood specimen / Unknown Venipuncture / Unknown 07/30/2025 7:42 PM EDT 07/30/2025 7:46 PM EDT Narrative [facility] - 07/30/2025 8:32 PM EDT This CRP test is appropriate for assessment of infection, systemic inflammation and/or tissue injury. To assess cardiovascular disease risk order high sensitivity CRP (CRPH). us Mack Rivas MD LAB BLOOD ORDERABLES Fi nal Result [facility] [address] [place] [address] * Colonoscopy (07/20/2025 8:07 AM EDT) Anatomical Region Laterality Modality Endoscopy Narrative 07/20/2025 8:10 AM EDT Table formatting from the original result was not included. Impression: One 4 mm sessile polyp in the ascending colon; performed cold snare with complete en bloc removal and retrieved specimen. Diverticula in the ascending colon, transverse colon, descending colon and sigmoid colon. Post Procedure Diagnosis None Recommendations Await pathology results The patient will be observed post-procedure, until all discharge criteria met. Resume previous diet. Await pathology results. Repeat colonoscopy in 3 years for screening / surveillance given quality of bowel preparation. Follow up with referring provider. Findings and recommendations discussed with Ms. Olvera and her spouse. Findings and recommendations to be conveyed to referring provider. Indication Personal History Polyps Medications See anesthesia record for anesthesia administered medications. Staff Staff Role Douglas White MD Proceduralist Ugo Matute CRNA CRNA Jovero, [place], RN Endo Nurse Lisa Will Endo Senior Officer Vinnie Pantoja MD Anesthesiologist Preprocedure A history and physical has been [...] rate, level of consciousness, respirations and oxygen saturation were monitored throughout the procedure. A digital rectal exam was performed. A perianal exam was performed. The scope was introduced through the anus and advanced to the terminal ileum. Retroflexion was performed in the rectum. The quality of bowel preparation was evaluated using the Franklin Bowel Preparation Scale with scores of: right colon = 2, transverse colon = 2, left colon = 2. The total BBPS score was 6. Bowel prep quality was fair. Bowel prep was adequate. The patient experienced no blood loss. The procedure was not difficult. The patient tolerated the procedure well. There were no apparent adverse events. Attestation I personally performed the entire procedure Events Procedure Events Event Event Time ENDO SCOPE IN TIME 07/20/2025 7:40 AM ENDO CECUM REACHED 07/20/2025 7:47 AM ENDO SCOPE OUT TIME 07/20/2025 8:05 AM Specimens ID Type Source Tests Collected by Time A : ascending colon polyp Tissue Ascending Colon SURGICAL PATHOLOGY EXAM Douglas White MD 07/20/2025 0759 Findings One 4 mm sessile polyp in the ascending colon; performed cold snare with complete en bloc removal and retrieved specimen. Diverticula in the ascending colon, transverse colon, descending colon and sigmoid colon. us Duncan Lyman MD GI PROCEDURE ORDERABLES Final Re sult * Surgical Pathology Exam (07/20/2025 7:59 AM EDT) Case Report Surgical Pathology Case: [id number] Authorizing Provider: Douglas Whiet MD Collected: 07/20/2025 0759 Ordering Location: [facility] Endoscopy Received: 07/20/2025 1110 Pathologist: Vinnie Sharma DO Specimen: Ascending Colon, ascending colon polyp 07/21/2025 10:04 AM EDT [facility] Final Diagnosis LARGE INTESTINE, ASCENDING COLON, POLYP, BIOPSY: - COLONIC MUCOSA WITH LYMPHOID AGGREGATE; NEGATIVE FOR DYSPLASIA. 07/21/2025 10:04 AM EDT [facility] at 1004 EDT Clinical Information K62.5 - Gastrointestinal hemorrhage associated with anorectal source [ICD-10-CM] Colonoscopy findings: - One 4 mm sessile polyp in the ascending colon. 07/21/2025 10:04 AM EDT [facility] Gross Description A. ASCENDING COLON POLYP Received in formalin labeled ascending colon polyp is 1 lujan-brown soft tissue fragment measuring 0.4 cm in greatest dimension. Entirely submitted in cassette A1. Cold Time: <1m Miranda Ramachandran 07/21/2025 10:04 AM EDT [facility] Note: A resident was involved in the service. I attest I examined the relevant preparations for the specimens and confirmed the diagnosis or interpretation. 07/21/2025 10:04 AM EDT [facility] Tissue Ascending colon structure / Unknown 07/20/2025 7:59 AM EDT 07/20/2025 11:10 AM EDT us Douglas White MD LAB PATHOLOGY ORDERABLES Final Result Performing Organization Address [facility] Co de Phone Number [facility] [address] [place] [address] * (ABNORMAL) Hemoglobin A1c (05/13/2025 11:16 AM EDT) Hemoglobin A1c 7.2(H) <5.7 % 05/13/2025 1:43 PM EDT [facility] Blood Venous blood specimen / Unknown Venipuncture / Unknown 05/13/2025 11:16 AM EDT 05/13/2025 11:17 AM EDT Narrative [facility] - 05/13/2025 1:43 PM EDT HA1C Interpretive Data: Diagnosis of Diabetes: Diabetic > or = 6.5% Pre-diabetic 5.7 to 6.4% Non-diabetic < or = 5.6% Glycemic Targets for Type I and Type II Diabetics: Non- Adults <7.0% Adults <6.0% Children and Adolescents <7.5% Source: [place] [employer]. Standards of medical care in diabetes,2017. Diabetes Care.2017:40 (suppl 1):S1-S135. us Annabelle Solorio APRN LAB BLOOD ORDERABLES Final R esult Performing Organization Address City/[facility] Co de Phone Number [facility] [address] [place] [address] * Hepatitis C Antibody - ED W/Reflex to HCV Quant PCR (10/01/2024 1:00 PM EST) Hepatitis C Antibody Negative Negative 10/01/2024 1:36 PM EST [facility] Blood Venous blood specimen / Unknown Venipuncture / Unknown 10/01/2024 1:00 PM EST 10/01/2024 1:04 PM EST us Denise YOUSSEF LAB BLOOD ORDERABLES Final Resu lt [facility] [address] [place] [address] from Last 3 Months or Most Recently Relevant to Health Maintenance Additional Health Concerns Active Problems Noted Date Diagnosed Date Autogenerated Problem 05/10/2025 Autogenerated Problem 05/05/[address] [place] [address] MEDICAID [facility] MEDICARE Advance Directives * Full Code (Latest Code Status on File) Date Activated Date Inactivated Comments 07/30/2025 11:25 PM 07/31/2025 5:35 PM Question Answer Comments I have reviewed the capacity from the link above and, if needed, have updated to appropriate status: Yes * Full Code Date Activated Date Inactivated Comments 05/17/2025 2:54 PM 05/19/2025 4:56 PM Question Answer Comments I have reviewed the capacity from the link above and, if needed, have updated to appropriate status: Yes * Full Code Date Activated Date Inactivated Comments 10/01/2024 4:55 PM 10/03/2024 3:54 PM Question Answer Comments Patient has decision-making capacity? Yes * Full Code Date Activated Date Inactivated Comments 09/18/2024 12:26 PM 09/20/2024 4:54 PM Question Answer Comments Patient has decision-making capacity? Yes Care Teams Summer Child Caregiver Relationship Specialty Start Date End Date Meli Gallardo APRN [id number] PCP - General 02/17/21 Tito Sue MD [address] [address] Surgeon Neurosurgery 07/21/25
--- OUTSIDE RECORDS SUMMARY | 2025-09-29 11:17 | XMS_ITS | Referral Summary ---
Author Organization [employer] ([place], [place], [place], [place], [place]) Address [address] [place] [address] Care Team Providers Care Estate And Trust Tax Principal Name Role Phone Meli Gallardo APRN Primary Care Provider [phone] Allergies Active Allergy Reactions Criticality Noted Date [...] Do you speak a language other than [place]an at [facility]? No 12/04/2023 Do you [...] Plan of Treatment Not on file Insurance [facility] DUAL COMPLETE [facility] ADV [facility] [place] [address] Advance Directives For more information, please contact: [phone] * Full Code (Latest Code Status on File) Date Activated Date Inactivated Comments 12/03/2023 8:33 PM 12/05/2023 6:12 PM Care Teams Estate And Trust Tax Principal Relationship Specialty Start Date End Date Meli Gallardo, BOTTLE CAPPING MACHINE OPERATOR PCP - General Family Medicine 10/31/22
--- OUTSIDE RECORDS SUMMARY | 2025-09-29 11:17 | XMS_ITS | Encounter Summary ---
Author Organization Healthcare Address [address] [place] [address] Care Team Providers Care Shed Boss Name Role Phone Meli Gallardo MIGUEL ANGEL Primary Care Provider [phone] Tito Sue MD Unavailable [phone] Encounter Details Date Type Department Care Team (Latest Contact Info) Description 08/02/2025 Travel Social History Tobacco Use Types Packs/Day [...] Recorded Patient Health Questionnaire-2 Score 0 02/24/2024 [facility] - Occupational Stress Questionnaire Answer Date [...] time in the past 12 m [facility], were you homeless or living in a group home (including now)? No 05/18/2025 CAGE ASSESSMENT [...] Have you had a drink first t allisno in the morning (EYE-[employer]NAGER [employer]ASK[employer]ALL) to steady your nerves or to get [...] as of this encounter Functional Status * Communicable Disease Screening Question Answer Date of Assessment Author Have you been in contact with someone who was sick? No / Unsure 08/02/2025 12:01 PM EDT Ever Mccoy RN Do you have any of the following new or worsening symptoms? Shortness of breath 08/02/2025 12:01 PM EDT Ever Mccoy RN * Travel Screening Question Answer Date of Assessment Author Have you traveled [place] or domestically in the last month? No 08/02/2025 12:01 PM EDT Ever Mccoy RN documented as of this encounter Mental Status * Communicable Disease Screening Question Answer Entry Date Author Have you been in contact with someone who was sick? No / Unsure 08/02/2025 12:01 PM EDT Ever Mccoy RN Do you have any of the following new or worsening symptoms? Shortness of breath 08/02/2025 12:01 PM EDT Ever Mccoy RN * Travel Screening Question Answer Entry Date Author Have you traveled [place] or domestically in the last month? No 08/02/2025 12:01 PM EDT A Ever salter RN documented in this encounter Plan of Treatment Not on file documented as of this encounter Goals Goal Patient Goal Type Associated Problems Recent Progress Patient-Stated? Author Autogene kareem Goal Care Plan Autogenerated Problem No Radha [...] documented as of this encounter Care Teams Shed Boss Relationship Specialty Start Date End Date Meli Gallardo APRN [id number] PCP - General 02/17/21 Tito Sue MD [address] [facility] [address] [place] [address] Surgeon Neurosurgery 07/21/25 documented as of this encounter
--- OUTSIDE RECORDS SUMMARY | 2025-09-29 11:18 | XMS_ITS | Clinical Summary ---
Author Organization [facility] Address [address] [place] [address] Care Team Providers Care Professor Of Legal Studies Name Role Phone Meli Gallardo APRN Primary Care Provider [phone] Allergies Active Allergy Reactions Criticality Noted Date Comments Azithromycin Rash Low 12/18/2017 Codeine Rash Low 08/20/2022 Erythromycin Hives Low 12/18/2017 Cephalexin Hives,Rash Low 12/18/2017 Morphine And Codeine Palpitations Low 12/18/2017 Heart beat really fast Penicillins Hives,Rash Low 12/18/2017 Conjugated Estrogens Other (See Comments) Low 08/13 BLE numbness Statins Other (See Comments),Myalgia 10/27/2024 Elevated liver enzymes Sulfa Antibiotics Rash Low 12/18/2017 Cetirizine Rash Low 12/18/2017 Medications busPIRone (BUSPAR) 5 MG tablet Take 1 tablet by mouth 3 (Three) Times a Day As Needed. Active carvedilol (COREG) 25 MG tablet Take 1 tablet by mouth 2 (Two) Times a Day With Meals. Active fluticasone (FLONASE) 50 MCG/ACT nasal spray Administer 2 sprays into the nostril(s) as directed by provider Daily As Needed. Active levothyroxine (SYNTHROID, LEVOTHROID) 137 MCG tablet Take 1 tablet by mouth Daily. Active clopidogrel (PLAVIX) 75 MG tablet Take 1 tablet by mouth Daily. Active albuterol (PROVENTIL HFA;VENTOLIN HFA) 108 (90 Base) MCG/ACT inhaler Inhale 2 puffs Every 4 (Four) Hours As Needed for Wheezing. Active insulin lispro protamine-insuli n lispro (humaLOG 75-25) (75-25) 100 UNIT/ML suspension injection Inject 62 Units under the skin into the appropriate area as directed 2 (Two) Times a Day With Meals. Active escitalopram (LEXAPRO) 20 MG tablet Take 1 tablet by mouth Daily. Active aspirin 81 MG tablet Take 1 tablet by mouth Daily. 30 tablet 8 Active citalopram (CeleXA) 40 MG tablet Take 1 tablet by mouth Daily. 2 Active Jardiance 25 MG tablet tablet Take 1 tablet by mouth Every Morning. 2 Active vitamin D (ERGOCALCIFEROL) 1.25 MG (01540 UT) capsule capsule Take 1 capsule by mouth 1 (One) Time Per Week. Saturday 2 Active famotidine (PEPCID) 20 MG tablet Take 1 tablet by mouth 2 (Two) Times a Day. Active Continuous Blood Gluc Sensor (Dexcom G4 Sensor) misc Active oxyCODONE (ROXICODONE) 5 MG immediate release tablet Take 1 tablet by mouth Every 4 (Four) Hours As Needed for Moderate Pain. 25 tablet 02/18/2023 1:32 PM EDT 3 Active furosemide (LASIX) 20 MG tabletIndication s:Essential hypertension Take 1 tablet by mouth Daily. 90 tablet 1 5 Active Additional Information Patient taking differently:20 mg OralAs Needed, Informant: Self, Reported on 03/16/2025 lisinopril (PRINIVIL,ZESTRI L) 20 MG tabletIndication s:Essential hypertension Take 1 tablet by mouth Daily. 90 tablet 1 5 Active Semaglutide, 1 MG/DOSE, (Ozempic, 1 MG/DOSE,) 2 MG/1.5ML solution pen-injectorIndi cations:Type 2 diabetes mellitus without complication, with long-term current use of insulin Inject 1 mg under the skin into the appropriate area as directed 1 (One) Time Per Week. 9 mL 1 5 Active pantoprazole (PROTONIX) 40 MG EC tablet Take 1 tablet by mouth Daily. Active Insulin Lispro (HUMALOG PEN SC) Inject 15 Units under the skin into the appropriate area as directed 2 (Two) Times a Day. Active Cyanocobalamin (VITAMIN B12 PO) Take by mouth Daily. Active amLODIPine (NORVASC) 10 MG tablet Take 1 tablet by mouth Daily. 30 tablet 5 Active Active Problems Problem Noted Date Diagnosed Date Chest pain 11/27/2018 Overview (11/27/2018): Cardiac catheterization (08/26/17): Normal coronary arteries. Normal LVEF [facility] ER presentation with chest pain, normal EKG, and normal troponin 1, 11/27/2018 Peripheral arterial disease 11/27/2018 TIA (transient ischemic attack) 11/27/2018 Long-term insulin use in type 2 diabetes 018 Essential hypertension 12/18/2017 Hyperlipidemia LDL goal <100 12/18/2017 Resolved Problems Problem Noted Date Diagnosed Date Resolved Date Stroke-like symptoms 12/18/2017 019 Left-sided weakness 12/18/2017 11/27/19 19 Immunizations Immunization Administration Dates Next Due COVID-19 (MODERNA) 1st,2nd,3 rd Dose Monovalent 08/03/2021,12/29/2020,12/01/2020 Flu Vaccine Intradermal Quad 18-64YR 07/23/2019 Flublok 18+yrs 06/28/2021 Fluzone Quad >6mos (Multi-dose) 07/12/2020,08/06 Hepatitis A 04/16/2019,10/11/2018 Influenza Injectable Mdck Pf Quad 06/29/2022 Influenza, Unspecified 07/16/2012,07/12/2010 Tdap 10/09/2010 Family History Medical History Relation Name Comments Diabetes Brother Heart disease Brother Hypertension Daughter Coronary artery disease Father Diabetes Father Heart attack Father Heart disease Father Hypertension Father Coronary artery disease Mother Diabetes Mother Heart disease Mother Hypertension Mother Hyperlipidemia Other Relation Name Status Comments Brother Alive Daughter Alive Father Alive Mother Alive Other Social History Tobacco Use Types Packs/Day Years Used Date Smoking Tobacco: Never Smokeless Tobacco: Never Tobacco Cessation:Counseling Given: Not Answered Alcohol Use Standard Drinks/Week Comments No 0 (1 standard drink = 0.6 oz pur e alcohol) Abuse Screen Answer Date Recorded Unsafe at Home or Work/School Not on file Feels Threatened by Someone? Not on file Does Anyone Keep You from Co ntacting Others or Doint Things Outside the Home? Not on file 02/18/2023 Physical Signs of Abuse Present no 02/18/2023 Housing Stability Answer Date Recorded Current Living Arrangements home 02/04 Potentially Unsafe Housing Conditions Not on zeina e 02/18/2023 Disabilities Answer Date Recorded Difficulty Concentrating, Remembering or Making Decisions no 02/18/2023 Difficulty Managing Errands Independently no 02/18/2023 Education Answer Date Recorded Help with school or training? Not on file Preferred Language Romansh 08/13/2022 Comments No Sex and Gender Information Value Date Recorded Sex Assigned at Not on file Legal Sex Female 10:35 AM EDT Gender Identity Not on file Sexual Orientation Not on file Last Filed Vital Signs Vital Sign Reading Time Taken Comments Blood Pressure 157/64 02/18/2023 2:45 PM EDT Pulse 85 02/18/2023 5:00 PM EDT Temperature 36.8 C (98.3 F) 02/18/2023 2:45 PM EDT Respiratory Rate 18 02/18/2023 2:45 PM EDT Oxygen Saturation 91% 02/18/2023 3:00 PM EDT Inhaled Oxygen Concentration - - Weight 75.3 kg (166 lb 0.1 oz) 02/18/2023 9:15 A M EDT Height 154.9 cm (5' 0.98 ) 02/18/2023 9:15 AM ED T Body Mass Index 31.38 02/18/2023 9:15 AM EDT Plan of Treatment Health Maintenance Due Date Last Done Comments DXA SCAN 1958 DIABETIC EYE EXAM 1968 DIABETIC FOOT EXAM 1968 URINE MICROALBUMIN-CREATININ E RATIO (uACR) 1968 Pneumococcal Vaccine 50+ (1 of 2 - PCV) 1977 MAMMOGRAM 1998 COLOGUARD 2003 COLON CANCER SCREENING 5 YEA R SIGMOIDOSCOPY 2003 CT COLONOGRAPHY 2003 FECAL OCCULT BLOOD TEST 2003 FIT Testing (1 year) 2003 ZOSTER VACCINE (1 of 2) 2008 LIPID PANEL 12/19/2018 12/19/2017 TDAP/TD VACCINES (2 - Td or Tdap) 10/09/2020 011 ANNUAL WELLNESS VISIT 08/13/2022 HEMOGLOBIN A1C 02/10/2023 08/13/2022, 12/19/2017 INFLUENZA VACCINE 05/07/2025 07/09/2022, , 06/28/2021, Additional history exists COVID-19 Vaccine (2024- 6 season) 2025 08/03/2021, 12/29/2020, 12/01/2020 COLONOSCOPY 07/20/2035 07/20/2025, 09/07, 06/24/2019, Additional history exists COLORECTAL CANCER SCREENING 07/20/2035 HEPATITIS C SCREENING Completed 10/01/2024 Medical Devices Implanted Type Area Cab Driver Device Identifier Shelf Expiration Date Model / Serial / Lot Sut/Anch Healix Adv Br W/Dynacord 4.5mm - [id number] Implanted:Qty : 1 on 02/18/2023 by Jefry Zayas MD at [facility] Implant Right: Shoulder DEPUY MITEK [id number] 11/06/2025 [id number] / / [id number] Sut/Anch Biocomp Swllk Tenodesis 7x19.5 - [id number] Implanted:Qty : 1 on 02/18/2023 by Jefry Zayas MD at [facility] Implant Right: Shoulder ARTHREX [id number] 03/06/2026 [id number] / / [id number] Sut/Anch Healix Adv Br W/Dynacord 4.5mm - [id number] Implanted:Qty : 1 on 02/18/2023 by Jefry Zayas MD at [facility] Implant Right: Shoulder DEPUY MITEK [id number] 11/06/2025 [id number] / / [id number] Interstim Procedures Procedure Name Priority Date/Time Associated Diagnosis Comments HEMOGLOBIN A1C Routine 08/13/2022 12:21 PM EST LIPID PANEL Routine 12/19/2017 2:01 AM EDT from Last 3 Months or Most Recently Relevant to Health Maintenance Results * (ABNORMAL) Hemoglobin A1c (08/13/2022 12:21 PM EST) Hemoglobin A1C 8.30(H) 4.80 - 5.60 % 08/13/2022 2:00 PM EST [facility] Blood Venipuncture / Unknown 08/13/2022 12:21 PM EST 08/13/2022 12:36 PM EST [facility] - 08/13/2022 2:00 PM EST Hemoglobin A1C Ranges: Increased Risk for Diabetes 5.7% to 6.4% Diabetes >= 6.5% Diabetic Goal < 7.0% us Tyler Dempsey MD LAB BLOOD ORDERABLES Final R esult [facility]
[address] [place] [address], * (ABNORMAL) Lipid Panel (12/19/2017 2:01 AM EDT) Total Cholesterol 225(H) 0 - 200 mg/dL 12/19/2017 3:59 AM EDT [facility] Triglycerides 222(H) 0 - 150 mg/dL 12/19/2017 3:59 AM EDT [facility] HDL Cholesterol 57 40 - 60 mg/dL 12/19/2017 3:59 AM EDT [facility] LDL Cholesterol 160(H) 0 - 130 mg/dL 12/19/2017 3:59 AM EDT [facility] Blood Venipuncture / Unknown 12/19/2017 2:01 AM EDT 12/19/2017 3:21 AM EDT [facility] - 12/19/2017 3:59 AM EDT Cholesterol Reference Ranges: Desirable < 200 mg/dL Borderline 200-239 mg/dL High Risk > 239 mg/dL Triglyceride Reference Ranges: Normal < 150 mg/dL Borderline 150-199 mg/dL High 200-499 mg/dL Very High > 499 mg/dL HDL Reference Ranges: Low < 40 mg/dL High > 59 mg/dL LDL Reference Ranges: Optimal < 100 mg/dL Near Optimal 100-129 mg/dL Borderline 130-159 mg/dL High 160-189 mg/dL Very High > 189 mg/dL us Alfreda Najera PA-C LAB BLOOD ORDERABLES Final Re sult [facility]
[address] [place] [address], [place] [phone] from Last 3 Months or Most Recently Relevant to Health Maintenance Insurance [facility] MEDICARE ADVANTAGE [employer] HMO NON PAR Advance Directives * Full Code (Latest Code Status on File) Date Activated Date Inactivated Comments 12/18/2017 11:57 PM 12/21/2017 1:10 PM Care Teams Professor Of Legal Studies Relationship Specialty Start Date End Date Meli Gallardo APRN PCP - General Nurse Practitioner 12/18/17
--- OUTSIDE RECORDS SUMMARY | 2025-09-29 11:18 | XMS_ITS | Encounter Summary ---
Author Organization [facility] Address [address] [place] [address] Care Team Providers Care Grain Elevator Agent Name Role Phone Meli Gallardo GEAR TOOTH GRINDING MACHINE OPERATOR Primary Care Provider [phone] Tito Sue MD Unavailable [phone] Reason for Referral * Consultation (Routine) - Closed Specialty Diagnoses / Procedures Referred By Estrellita alves Referred To Contact Gastroenterology Diagnoses Gastro-esophageal reflux disease without esophagitis Meli Gallardo APRN [id number] fax: Referral ID Status Reason Start Date Expiration Date V isits Requested Visits Authorized [id number] Closed Specialty Services Required 11/12/2022 05/13/2024 1 1 Encounter Details Date Type Department Care Team (Late st Contact Info) Description 11/12/2022 Community Orders Community Practice [address] [place] [address] Meli Gallardo APRN [id number] Gastro-esophageal reflux disease without esophagitis (Primary Dx) [...] documented as of this encounter Care Teams Grain Elevator Agent Relationship Specialty Start Date End Date Meli Gallardo APRN [id number] PCP - General 02/17/21 Tito Sue MD [address] [facility] [address] [place] [id number] Surgeon Neurosurgery 07/21/25 documented as of this encounter
--- OUTSIDE RECORDS SUMMARY | 2025-09-29 11:18 | XMS_ITS | Encounter Summary ---
Author Organization [facility] Address [address] [place] [address] Care Team Providers Care Dog Daycare Provider Name Role Phone Meli Gallardo APRN Primary Care Provider [phone] Tito Sue MD Unavailable [phone] Reason for Referral * Consultation (Routine) - Closed Specialty Diagnoses / Procedures Referred By Estrellita alves Referred To Contact Hand Surgery Diagnoses Trigger index finger of left hand Jefry Zayas [address] [place] [address] Phone: tel: fax: Ayad Avitia MD [address] [address] Phone: tel: fax: Referral ID Status Reason Start Date Expiration Date Visits Re quested Visits Authorized [id number] Closed 09/11/2023 03/12/2025 1 1 Encounter Details Date Type Department Care Team (Late st Contact Info) Description 09/11/2023 Community Orders Community Practice [address] [place] [address] Jefry Zayas [address] [place] [address] Trigger index finger of left hand (Primary [...] documented as of this encounter Care Teams Dog Daycare Provider Relationship Specialty Start Date End Date Meli Gallardo APRN [id number] PCP - General 02/17/21 Tito Sue MD [address] [facility] [address] [place] [address] Surgeon Neurosurgery 07/21/25 documented as of this encounter
--- OUTSIDE RECORDS SUMMARY | 2025-09-29 11:18 | XMS_ITS | Continuity of Care Document ---
Author Organization [place] - [facility] Address [address] [place] [phone] Assessment Encounter Date Assessment Date Assessment LastModified [...] Modified Time Details Appointments None recorded. Lab HbA1c (hemoglobin A1c), blood 2024 025 [email or web address] [facility], [address] [place] [address], [phone], 16:15:21 Referral None recorded. Procedures None recorded. Surgeries None recorded. Imaging None recorded. Medication Orders Ozempic 1 mg/dose (4 mg/3 mL) subcutaneou s pen injector 2024 025 [facility], [address] [place] [address], [address], 17:20:25 Humulin 70/30 U-100 Insulin KwikPen 100 unit/mL subcutaneou s 2024 [facility], [address] [place] [address], [address], 17:20:27 levothyroxi ne 150 mcg tablet 2024 [facility], [address] [place] [address], [address], 17:20:26 gabapentin 600 mg tablet 2024 [facility], [address] [place] [address], [address], 17:20:25 hydrocodone 5 mg-acetamin ophen 325 mg tablet 2024 [facility], [address] [place] [address], [address], 17:20:27 Patient TargetsNo targets recorded. Patient InstructionsNo instructions recorded. Reason for Referral None Reported. Results Created Date Observation Date Name Description Value Unit Range Abnormal Flag Note LastModifiedBy Organization Detail LastModifiedTime 08/06/2008/06/2025 HbA1c (hemo globi n A1c), blood HbA1c 9.0 Not Available [address], [phone], 08/06/2025 15:55:28 Result Notes None recorded. Problems Name Problem SNOMED Code Status Onset Date Resolution Date Notes Provider Name and Address Organization Details Recorded Time Wheezing [id number] Completed 201609/11/2017 Problem Code: R06.2; Problem Code Type: ICD-10; Not Available [facility] 22:05:38 Gastroes ophageal reflux disease without esophagi tis 184360089 Completed 201610/30/2017 Not Available [facility] 2 22:05:37 Gastroes ophageal reflux disease 023229961 Completed 201601/31/2018 Problem Code: 530.81; Problem Code Type: ICD-9; Not Available [facility] 2 22:05:44 Influenz a 6009811 Completed 201710/30/2017 Problem Code: J10.1; Problem Code Type: ICD-10; Not Available [facility] 2 22:05:36 Acute bronchit is 64444586 Completed 201710/30/2017 Problem Code: J20.8; Problem Code Type: ICD-10; ADY solano, [employer] 2 09:28:05 Influenz a with respirat ory manifest ation other than pneumoni a Completed 201710/30/2017 Problem Code: 487.1; Problem Code Type: ICD-9; Not Available [facility] 2 22:05:47 Breast neoplasm screenin g status 225122133 Completed 201712/29/2017 Problem Code: Z12.39; Problem Code Type: ICD-10; Not Available [facility] 2 22:05:39 Screenin g for malignan t neoplasm of breast Completed 201712/29/2017 Problem Code: V76.10; Problem Code Type: ICD-9; Not Available [facility] 2 22:05:46 Acute cystitis 05824405 Completed 201712/20/2017 Problem Code: N30.00; Problem Code Type: ICD-10; Not Available [facility] 2 22:05:38 Low back pain 775338120 Completed 201712/23/2017 Problem Code: M54.5; Problem Code Type: ICD-10; ADY solano, [employer] 2 09:28:05 Back problem 120298782 Completed 201712/23/2017 Problem Code: 724.8; Problem Code Type: ICD-9; Not Available [facility] 2 22:05:48 Plane wart 695255014 Completed 201704/01/2018 Problem Code: B07.8; Problem Code Type: ICD-10; Not Available [facility] 2 22:05:34 Atrophy of thyroid - acquired 346824116 Completed 201710/11/2018 Problem Code: E03.4; Problem Code Type: ICD-10; Not Available [facility] 2 22:05:34 Mixed hyperlip idemia 550982206 Active 2017 Problem Code: E78.2; Problem Code Type: ICD-10; Not Available [facility] 22:05:35 Generali zed anxiety disorder 74634713 Active 2017 Problem Code: F41.1; Problem Code Type: ICD-10; Not Available [facility] 22:05:35 Hyperten sive disorder 10249645 Completed 201705/05/2018 Problem Code: I10; Problem Code Type: ICD-10; Not Available [facility] 2 22:05:35 Acquired hypothyr oidism 125298765 Completed 201708/06/2018 Problem Code: 244.8; Problem Code Type: ICD-9; Not Available [facility] 2 22:05:42 Verruca vulgaris 73903418 Completed 201704/01/2018 Problem Code: 078.19; Problem Code Type: ICD-9; Not Available [facility] 2 22:05:43 Benign essentia l hyperten gerber 9688285 Active 2017 Problem Code: 401.1; Problem Code Type: ICD-9; Not Available [facility] 2 22:05:44 Verruca vulgaris 47576487 Completed 201704/05/2018 Problem Code: B07.9; Problem Code Type: ICD-10; Not Available [facility] 2 22:05:34 Acute sinusiti s 61833555 Completed 201704/09/2018 Problem Code: J01.90; Problem Code Type: ICD-10; ADY solano [facility] 09:28:05 Otitis externa 6556958 Completed 201706/03/2018 Problem Code: H60.339; Problem Code Type: ICD-10; Not Available [facility] 2 22:05:35 Otitis externa of right ear 18691730446 17749 Completed 201710/13/2018 Problem Code: H60.331; Problem Code Type: ICD-10; Not Available [facility] 2 22:05:35 Acute swimmer' s ear Completed 201706/03/2018 Problem Code: 380.12; Problem Code Type: ICD-9; Not Available [facility] 2 22:05:44 Dizzines s and giddines s 160241470 Completed 201710/13/2018 Problem Code: 780.4; Problem Code Type: ICD-9; Not Available [facility] 2 22:05:45 Focal oral mucinosi s 590243260 Completed 201708/19/2018 Problem Code: K13.79; Problem Code Type: ICD-10; Not Available [facility] 2 22:05:37 Lumbosac ral radiculo chalino 7813738 Active 2017 Problem Code: M54.16; Problem Code Type: ICD-10; Not Available [facility] 2 22:05:37 Disorder of oral soft tissues 09722456 Completed 201708/19/2018 Problem Code: 528.9; Problem Code Type: ICD-9; Not Available [facility] 2 22:05:44 Vitamin D deficien cy 13847744 Active 2017 Problem Code: E55.9; Problem Code Type: ICD-10; Not Available [facility] 2 22:05:35 Pain of intercos brandon space 979887738 Completed 201710/13/2018 Problem Code: R07.82; Problem Code Type: ICD-10; Not Available [facility] 2 22:05:38 Chest pain 24894614 Completed 201710/13/2018 Problem Code: 786.59; Problem Code Type: ICD-9; Not Available [facility] 2 22:05:45 Myositis 14981296 Completed 201810/25/2018 Problem Code: M60.9; Problem Code Type: ICD-10; Not Available [facility] 2 22:05:38 Fibromyo sitis 73933901 Completed 201810/25/2018 Problem Code: 729.1; Problem Code Type: ICD-9; Not Available [facility] 2 22:05:45 Nummular eczema 45425418 Completed 201808/01/2020 Problem Code: L30.0; Problem Code Type: ICD-10; Not Available [facility] 2 22:05:37 Screenin g mammogra phy Completed 201804/28/2019 Problem Code: Z12.31; Problem Code Type: ICD-10; ADY solano, [employer] 2 09:28:05 Bronchop neumonia 784419252 Completed 201804/28/2019 Problem Code: J18.0; Problem Code Type: ICD-10; Not Available [facility] 2 22:05:36 Abscess of abdomina l wall 43499699 Completed 201804/28/2019 Problem Code: L02.211; Problem Code Type: ICD-10; Not Available [facility] 2 22:05:37 Influenz a vaccine needed 72559189842 06 Completed 201804/28/2019 Problem Code: Z23; Problem Code Type: ICD-10; ADY solano [employer] 2 09:28:05 Divertic ulitis of gastroin testinal tract 928899786 Completed 201808/01/2020 Problem Code: K57.93; Problem Code Type: ICD-10; Not Available [facility] 2 22:05:37 Mononeur opathy due to type 2 diabetes mellitus 373948635 Active 2018 Problem Code: E11.41; Problem Code Type: ICD-10; Not Available [facility] 2 22:05:35 Acute frontal sinusiti s 83884919 Completed 201807/02/2022 Problem Code: J01.10; Problem Code Type: ICD-10; ADY BAIG null, [employer] 2 09:28:05 Chemical pneumoni tis caused by anesthes ia 54801330066 276108 Completed 201807/02/2022 ADY READR null, [employer] 2 09:28:05 Influenz a vaccine needed 04955645370 06 Completed 201808/01/2020 Problem Code: Z23; Problem Code Type: ICD-10; ADY READR null, [employer] 2 09:28:05 General examinat ion of patient Active 2019 Not Available [facility] 2 22:05:38 Screenin g mammogra phy Completed 201907/02/2022 Problem Code: Z12.31; Problem Code Type: ICD-10; ADY READR null, [employer] 2 09:28:05 Acute frontal sinusiti s 83171173 Completed 201908/01/2020 Problem Code: J01.11; Problem Code Type: ICD-10; ADY GOMESNEAR null, [employer] 2 09:28:05 Screenin g mammogra phy Completed 201907/12/2020 Problem Code: Z12.31; Problem Code Type: ICD-10; ADY GOMESNEAR null, [employer] 2 09:28:05 Disorder of upper respirat ory system 171939217 Completed 201901/31/2021 Problem Code: J06.9; Problem Code Type: ICD-10; Not Available [facility] 2 22:05:36 Influenz a vaccine needed 59908370603 06 Completed 201908/01/2020 Problem Code: Z23; Problem Code Type: ICD-10; ADY GOMESNEAR null, [employer] 2 09:28:05 Viral pneumoni a 75565939 Completed 201907/02/2022 Problem Code: J12.89; Problem Code Type: ICD-10; ADY GOMESNEAR null, [employer] 2 09:28:05 Acute sinusiti s 05987433 Completed 202007/02/2022 Problem Code: J01.90; Problem Code Type: ICD-10; ADY GOMESNEAR null, [employer] 09:28:05 Body mass index 30+ - obesity 546350562 Active 2020 Problem Code: Z68.34; Problem Code Type: ICD-10; Not Available [facility] 22:05:42 Low back pain 796957216 Completed 202007/02/2022 Problem Code: M54.5; Problem Code Type: ICD-10; ADY GOMESNEAR null, [employer] 09:28:05 Acute bronchit is 64743831 Completed 202007/02/2022 Problem Code: J20.9; Problem Code Type: ICD-10; ADY GOMESNEAR null, [employer] 2 09:28:05 Influenz a vaccine needed 80144080369 06 Completed 202007/02/2022 Problem Code: Z23; Problem Code Type: ICD-10; ADY GOMESNEAR null, [employer] 2 09:28:05 Abscess of limb 044190149 Completed 202107/02/2022 Problem Code: L02.415; Problem Code Type: ICD-10; ADY GOMESNEAR null, [employer] 2 09:28:05 Radiculo chalino due to lumbar interver tebral disc disorder 93760110576 9105 Active 2023 Meli Gallardo APRN [address] [place] [address], [address] , [employer] 4 10:32:09 Esslakisha l hyperten gerber 99180133 Active 2024 Meli Gallardo APRN [address] [place] [address], [phone] , [employer] 5 09:56:57 Hypothyr oidism 21193096 Active 2024 Meli Gallardo APRN [address] [place] [address], [phone] , [employer] 5 16:14:59 COVID-19 578753428 Active 2024 Meli Gallardo APRN [address] [place] [address], [phone] , [employer] 5 10:48:35 Notes:*Problem Name: Incompl ete rotator cuff tear or rupture of right shoulder, not specified as traumatic *Problem Status: Chronic *Comments: *Problem Code: M75.111 *Problem Code Type: ICD-10 *Note Date: 11/01/2021 Some problems listed in Documents: #[id number], #[id number] could not be added to this patient's chart. Please review these documents and add these problems to the patient's chart manually as needed. Problem Notes None recorded. Procedures Surgical History Date Name Laterality Status Provider Name and Address Organization Details Recorded Time 025 Most Recent Mammogram completed ADY BAIG [employer] 01/01/2025 08:24:08 024 implantation of insertable loop recorder completed Meli Gallardo APRN [address] [place] [address], [phone], [employer] 05/20/2024 16:49:29 023 cardiac catheterization completed Meli Gallardo APRN [address] [place] [address], [phone], [employer] 01/07/2023 14:35:31 019 screening colonoscopy completed Myra Sarmientojorge [employer] 12/17/2022 10:33:56 017 hysterectomy completed Not Available [facility] 06/12/2022 22:56:08 017 Date of Last Pap Smear completed ADY [employer] 07/02/2022 09:29:20 Gallbladder Surgery completed YOMI A [employer] 07/02/2022 09:32:24 Carpal tunnel surgery completed ADY [employer] 07/02/2022 09:32:35 Hemorrhoidectomy completed ADY [employer] 07/02/2022 09:32:46 Knee arthroscopy/surgery completed ADY [employer] 07/02/2022 09:33:23 procedure on elbow completed ADY [employer] 07/02/2022 09:33:43 thyroidectomy completed ADY [employer] 07/02/2022 09:33:57 Imaging Results None recorded. Procedure Notes None recorded. Medical Equipment None Reported. Allergies Allergen ID Allergen Name Allergen Category Reaction Reaction Severity Criticality Documentation Date Start Date Code Code System Note Provider Name and Address Organization Details Recorded Time 74858 Product containin g penicilli n (product) medicatio n Not available Not available Not available 06/12/2022 38335 8001 SNOMED Myra Sarmientojorge russ, [employer] 3 13:50:04 72932 Substance with sulfonami de structure and antibacte rial mechanism of action (substanc e) medicatio n Not available Not available Not available 06/12/2022 36183 8003 SNOMED Myra Sarmientojorge solano, [employer] 3 13:50:07 63113 Premarin medicatio n Not available Not available Not available 06/12/2022 6 RxNorm Not Available [facility] 22:54:21 95930 morphine sulfate medicatio n Not available Not available Not available 06/12/2022 87674 RxNorm Not Available [facility] 2 22:54:22 72931 erythromy radha medicatio n Not available Not available Not available 06/12/2022 4053 RxNorm Not Available [facility] 2 22:54:22 21750 Zyrtec medicatio n Not available Not available Not available 06/12/2022 61090 RxNorm Not Available [facility] 2 22:54:22 02108 codeine medicatio n Not available Not available Not available 07/02/2022 2670 RxNorm ADY solano [facility] MD[employer] 2 09:22:53 35109 codeine phosphate medicatio n Not available Not available Not available 09/06/20252007 2672 RxNorm Not Available [employer] - prod 5 10:08:20 65755 azithromy radha medicatio n rash Not available low 09/06/20252017 49270 RxNorm Not Available [employer] - prod 5 10:08:25 85988 cephalexi n medicatio n hives rash Not available Not available low 09/06/20252017 2231 RxNorm Not Available [employer] - prod 5 10:08:25 65194 morphine medicatio n palpitati ons Not available low 09/06/20252017 7052 RxNorm Hear t beat reall y fast Not Available [employer] - prod 5 10:08:25 33178 estrogens , conjugate d (SKILLED NURSING) medicatio n other Not available low 09/06/20252021 4099 RxNorm BLE numbn ess Not Available [employer] - prod 5 10:08:25 46250 cetirizin e medicatio n rash Not available low 09/06/20252017 89985 RxNorm Not Available [employer] - prod 5 10:08:25 84552 penicilli n V Not available Not available Not available Not available 09/06/2025 7984 RxNorm unrec ogniz ed react ion (text : Adver se react ion to subst ance, code: 04032 0009) , moder ate (from exter nal sour e) Not Available [employer] - prod 5 10:18:25 96311 amoxicill in medicatio n rash Not available low 09/06/20252020 723 RxNorm Not Available [employer] - prod 5 10:18:30 55461 Product containin g estrogen receptor agonist (product) medicatio n other Not available low 09/06/20252014 31453 003 SNOMED numbn ess Not Available [employer] - prod 5 10:18:30 23553 penicilli n G Not available hives Not available high 09/06/20252024 7980 RxNorm Not Available [employer] - prod 5 10:18:30 76553 Product containin g 3-hydroxy -3-methyl glutaryl- coenzyme A reductase inhibitor (product) medicatio n hives rash Not available Not available high 09/06/20252024 92609 009 SNOMED [facility] kareem liver enzym es Not Available [employer] - prod 5 10:18:30 97366 sulfaceta mide medicatio n dyspnea hives rash Not available Not available Not available high 09/06/20252009 77066 RxNorm Not Available [employer] - External Data [...] 4 PM on day before colonosc opy 10/31 /2025 completed Not Available Not Available Not Available [...] BELOW THE SKIN every AM and HS 01/08 /2025 completed Not Available Not Available Not Available [...] Available Not Available Not Available Dexcom G6 Shoe Salesman USE DIRECTED . active Not Available Not Available No t Available Dexcom G6 Transmitt er device USE DIRECTED active Not Available Not Available No t Available baclofen 5 mg tablet take 1 tablet (5 mg) by oral route 3 times per day 07/02 completed Not Available Not Available Not Available BD Martha 2nd Gen Pen Needle 32 gauge x 32 USE TWICE DAILY WITH INSULIN active Not Available Not Available No t Available Flucelvax Quad 60 mcg (15 mcg x 4)/0.5 mL [...] Updated DateTime 5 154.94 cm 33.8 kg/m2 58095.0 3 g 98 [degF] 89 /min 93 % 136/93 mm[Hg] Elke Berger [employer] 5 16:02:17 Social History Question Answer Notes LastModified by Organizat ion Details LastModified Time Tobacco Smoking Status Never Smoker Myra solano [employer]ela 11/12/2022 10:37:22 Do You Have An Advance [...] Do You Have A Medical Power Of Substation Wireman? No Information not available 07/02/2022 What Was [...] available 11/12 10:37:05 Medical History Condition Response Diabetes Y Allergies (Food, seasonal, environmental ) Y Hospitalizations N Acid Reflux (GERD) Y [...] high-dose, quadrivalent, PF 3 completed Shantel Stack, [employer] [address] [place], [phone], [employer] 07/08/2023 15:19:03 zoster recombinant 4 completed Meli Gallardo, MIGUEL ANGEL [address] [place] [address], [phone], [employer] 03/22/2024 22:40:12 pneumococcal polysaccharide PPV23 4 completed Meli Gallardo, MIGUEL ANGEL [address] [place] [address], [phone], [employer] 06/21/2024 15:45:20 Influenza, high-dose, trivalent, PF 4 completed Meli Gallardo, MIGUEL ANGEL [address] [place] [address], [phone], [employer] 07/07/2024 16:31:15 COVID-19, mRNA, LNP-S, PF, 100 mcg/0.5mL dose or 50 mcg/0.25mL dose 1 completed ADY MYNEAR null, [employer] 10/09/2022 11:27:51 COVID-19, mRNA, LNP-S, PF, 100 mcg/0.5mL dose or 50 mcg/0.25mL dose 1 completed ADY MYNEAR null, [employer] 10/09/2022 11:27:51 Influenza, split virus, quadrivalent, preservative 8 completed ADY MYNEAR null, [employer] 10/09/2022 11:27:51 Influenza, split virus, trivalent, preservative 7 completed Not Available [facility] 11/04/2023 12:52:24 Hep A, adult 9 completed ADY MYNEAR null, [employer] 10/09/2022 11:27:52 Hep A, adult 9 completed Not Available [facility] 06/12/2022 23:57:18 Influenza, MDCK, quadrivalent, preservative 9 completed ADY MYNEAR null, [employer] 10/09/2022 11:27:52 Influenza, split virus, quadrivalent, preservative 0 completed ADY MYNEAR null, [employer] 10/09/2022 11:27:51 Influenza, recombinant, quadrivalent, PF 1 completed ADY MYNEAR null, [employer] 10/09/2022 11:27:51 Influenza, split virus, trivalent, preservative 0 completed ADY MYNEAR null, [employer] 10/09/2022 11:27:51 Influenza, split virus, trivalent, preservative 2 completed ADY MYNEAR null, [employer] 10/09/2022 11:27:51 Influenza, split virus, quadrivalent, PF 2 completed ADY MYNEAR null, [employer] 10/09/2022 11:27:52 Tdap 1 completed ADY MYNEAR null, [employer] 10/09/2022 11:27:52 COVID-19, mRNA, LNP-S, PF, 100 mcg/0.5mL dose or 50 mcg/0.25mL dose 1 completed ADY MYNEAR null, [employer] 10/09/2022 11:27:52 zoster recombinant 5 completed ADY MYNEAR null, [employer] 04/27/2025 10:52:09 Influenza, split virus, trivalent, PF 5 completed Judith Love null, [employer] 08/06/2025 17:13:28 Past Encounters Encounter ID Performer Location Encounter Start Date Encounter Closed Date Diagnosis/Indication Diagnosis SNOMED-CT Code Diagnosis ICD10 Code Diagnosis IMO Codes Diagnosis Note [id number] Meli GallardoMIGUEL ANGEL [address] [address] 08/06/2025 15:47:16 08/09/2025 10:33:17 Mononeuropathy due to type 2 diabetes mellitus 021911954 E11.41 Increase 70/30 to 20 units BID. DM diet and increasing activity encouraged . Continue use of Dexcom, she is to update me on her glucose levels in 3 days for further insulin titration. Radiculopa thy due to lumbar intervertebral disc disorder 8180457039 15138 M51.16 Increase gabapentin to 600 mg TID and refill short course lortab, joan reviewed. Keep PT and Neurosurge ry appts next week. Hypothyroidism 03643359 E03.9 [id number] TSH 17, T4 0.7 in ER on 08/02/25. Increase Synthroid to 150 mcg daily. Influenza vaccination given [id number] 9109 Z23 [id number] Health Concerns Section Related Observation LastModified by Organization Detai ls LastModified Time None Recorded Concern Status LastModified by Organization Details LastModified Time None Recorded Payers Encounter Date Sequence Insurance Name Policy Number Policy Monreal Covered Member ID Monreal Member ID Guarantor Name 08/06/2025 2 [facility] (MEDICAID HMO) April Olvera [id number] Aprilsofia Olvera 08/06/2025 1 [facility] - DUAL ELIGIBLE (MEDICARE REPLACEMENT/A DVANTAGE - HMO) DARI Olvera [id number] April Olvera Notes Date Note Type Note Provider Name and Address Organization Details Recorded Time 08/06/2025 text/html ROS as noted in the HPI Chief [...] plan that date in the ER. Meli Gallardo, MIGUEL ANGEL [address] [facility], [place], [address], [facility] [employer] 08/06/2025 18:02:19 OBGyn Episode No OBEpisode recorded.
[2025-09-29] MEDS: HYDRALAZINE 20MG/ML VIAL 10 MG IV (11:23)
[2025-09-29] MEDS: ASPIRIN 325MG TABLET 325 MG PO (11:24)
[2025-09-29 11:25] LABS: Hematocrit 39.5 % (37.0-47.0); Hemoglobin 13.6 g/dL (12.2-16.2); Immature Granulocytes % 0.6 %; Mean Corpuscular HGB Conc 34.4 g/dL (31.8-35.4); Mean Corpuscular Hemoglobin 29.4 pg (27.0-31.2); Mean Corpuscular Volume 85.5 fl (81-99); Nucleated Red Blood Cells % 0 %; Platelet Count 148 K/mm3 (142-424); Red Blood Count 4.62 M/mm3 (4.20-5.40); Red Cell Distribution Width-SD 41.9 fL; White Blood Count 6.3 K/mm3 (4.8-10.8)
[2025-09-29 11:29] LABS: Albumin Level 4.9 g/dl (3.5-5.0); Chloride 99 mmol/L (98-107)
[2025-09-29 11:30] LABS: Potassium 3.8 mmoL/L (3.5-5.1); Sodium 139 mmol/L (136-145)
[2025-09-29 11:32] LABS: Alanine Aminotransferase 34 U/L (12-78); Anion Gap 16.8 mEq/L (5-15); Aspartate Amino Transferase 33 U/L (14-36); Blood Urea Nitrogen 12 mg/dl (7-17); Carbon Dioxide 27 mmol/L (22.0-30.0); Creatinine Clearance Estimated 66 mL/min (50-200); Creatinine,Serum 0.70 mg/dl (0.52-1.04); Estimated Glomerular Filt Rate 83 ml/min (>60); GFR (African American) 101 ML/MIN (>60)
[2025-09-29 11:33] LABS: Albumin/Globulin Ratio 2.0 (1.1-1.8); Alkaline Phosphatase 89 U/L (38-126); Bilirubin,Total 1.1 mg/dl (0.2-1.3); Calcium 9.3 mg/dl (8.4-10.2); Globulin 2.5 g/dL (1.3-3.2); Glucose 214 mg/dl (74-100); Lipase 83 U/L (23-300); Magnesium 1.7 mg/dl (1.6-2.3); Total Protein,Serum 7.4 g/dl (6.3-8.2)
[2025-09-29 11:36] LABS: D-Dimer 2.58 ug/mL (0.0-0.5)
[2025-09-29 11:41] LABS: NT Pro Brain Natriuretic Pep. 30.6 pg/mL (0-125)
--- NOTE | 2025-09-29 11:44 | CT_ITS ---
FINAL REPORT TECHNIQUE: Thin section axial CT with contrast with multiplanar reconstruction This study was performed with techniques to keep radiation doses as low as reasonably achievable, (ALARA). Individualized dose reduction techniques using automated exposure control or adjustment of mA and/or kV according to the patient's size were employed. CLINICAL HISTORY: dimer COMPARISON: None FINDINGS: CTA CHEST: Pulmonary vessels moderate pulmonary emboli. There is occlusion of some right lower lobe segmental branches. There are smaller pulmonary emboli involving the left lower lobe segmental and subsegmental branches. There is no evidence of right heart strain. The LV to RV ratio is 0.75. Thoracic aorta shows no dissection or aneurysm. No pulmonary mass or infiltrate is present. There is no significant pleural effusion. There is no significant pericardial effusion. No mediastinal or hilar adenopathy is present. A small hiatal hernia is present. IMPRESSION: 1. Moderate pulmonary emboli are present, greater on the right than on the left. 2. There is no evidence of right heart strain. Reviewed, Interpreted and Dictated by Enmanuel Gonzalez MD Transcribed by Gwen Miranda Authenticated and [facility]
[2025-09-29 11:46] LABS: Troponin I < 0.01 ng/ml (0.00-0.034)
[2025-09-29] MEDS: NITROGLYCERIN 0.4MG SL TABLET 0.4 MG SL (11:52)
--- NOTE | 2025-09-29 11:52 | PC.NURSE ---
1150- patient started complaining of central chest pain, provider notified, see MAR for medications administered.
[2025-09-29] MEDS: 0.9 % SODIUM CHLORIDE 50 ML VIAL IV (12:19)
[2025-09-29 12:20] LABS: Influenza A, PCR Not Detected (NotDetected); Influenza B, PCR Not Detected (NotDetected)
[2025-09-29] MEDS: IOPAMIDOL-370 (76%);100ML BOTTLE 70 ML IV (12:20)
[2025-09-29] MEDS: SODIUM CHLORIDE 0.9% 10ML SYR (RAD ONLY) 10 ML IV (12:20)
[2025-09-29] MEDS: HYDROMORPHONE 2MG/ML SYRINGE 0.5 MG IV (12:28)
[2025-09-29 12:50] LABS: Hepatitis C Ab Qual. W/ RFX NEGATIVE (Negative)
[2025-09-29 13:11] LABS: Coronavirus 19, PCR Detected (NotDetected)
--- NOTE | 2025-09-29 14:39 | EXP.HP ---
History of Present Illness *Admission Date: 09/29/25 *Reason for visit:: chest pain *History of present illness: Ms. Olvera is a 65-year-old female with history of diabetes and hypothyroid. Presented with complaint of some left-sided chest pain that began early this morning. Has been more fatigued the past few weeks but pain and discomfort began today. On arrival to the ER, found to be hypertensive with blood pressure of 225/120. Stable on room air at the time. Workup in the ER with CBC, CMP, D-dimer and EKG. D-dimer elevated which led to CT of chest. CTA showed subsegmental PEs. Given persistent chest pain, medicine consulted for admission and Lovenox therapy with monitoring overnight. Troponin 0.01. EKG showing no ST elevation. Does have inverted T wave in lead III. No right heart strain on CTA of chest. Upon arrival to the floor, patient is alert and oriented x 4. Appears in very mild distress. On room air. Still complaining of some mild pain but improving. No nausea or vomiting. Was found to be COVID-positive but in no distress from that at this time. Of note had back surgery earlier this year but has been ambulatory. No previous history of PE or DVT. Denies any leg swelling or pain. [facility] Disclaimer: The information contained in this section may have been updated after the patient was seen, as this information can be updated by other users. Medical History (Updated 09/29/25 @ 14:40 by Derek Lizarraga MD) Diabetes Hypothyroid Hypertension Surgical History No significant past surgical history Family History No significant family history Social History Smoking Status: Never smoker alcohol intake: never current occupational status: retired Travel in the last 8 weeks?: None Have you lived/traveled outside US in past 30 days?: No Contact w/someone who lives/traveled outside US past 30 days?: No Exposure to someone with infectious disease in past 14 days?: No Do you have a fever (greater than 100.4 F or 38 C)?: No Have you tested positive for COVID-19?: No Exposed to someone with COVID-19 in past 14 days?: No Do you have a sore throat?: No Do you have a cough?: No Do you have any weakness?: No Do you have any diarrhea?: No Are you experiencing any unusual bleeding?: No Do you have any muscle aches/pain?: No Do you have any abdominal pain?: No Are you experiencing loss of taste or smell?: No Other Medical History Have you received the Flu Vaccine for this season: No Have you received the Pneumonia Vaccine: No Review of Systems Review of Systems Review of systems (narrative): 14 point review of systems performed, pertinent positives and negatives as per HPI Meds Home Medications and Allergies Home Medications ?Medication ?Instructions ?Recorded ?Confirmed ?Type albuterol sulfate 90 mcg/actuation 2 puff inhalation Q4HP PRN wheezing 09/29/25 09/29/25 History aerosol inhaler buspirone 10 mg tablet 10 mg PO TID 09/29/25 09/29/25 History cyclobenzaprine 5 mg tablet 5 mg PO TIDP PRN muscle spasm 09/29/25 09/29/25 History ergocalciferol (vitamin D2) 1,250 1,250 mcg PO WEEKLY 09/29/25 09/29/25 History mcg (50,000 unit) capsule insulin NPH-regular 70-30 U-100 20 unit SQ BID 09/29/25 09/29/25 History insulin 100 unit/mL subcutaneous pen (Humulin 70/30 U-100 KwikPen) levothyroxine 150 mcg tablet 150 mcg PO DAILY 09/29/25 09/29/25 History lisinopril 20 mg tablet 20 mg PO DAILY 09/29/25 09/29/25 History semaglutide 1 mg/dose (4 mg/3 mL) 1 mg SQ WEEKLY 09/29/25 09/29/25 History subcutaneous pen injector (Ozempic) New Prescriptions to Start Prescriptions: Allergies Allergy/AdvReac Type Severity Reaction Status Date / Time cephalexin (From Keflex) Allergy Intermediate I-RASH Verified 09/29/25 11:04 cetirizine (From Zyrtec) Allergy Intermediate I-RASH Verified 09/29/25 11:04 codeine Allergy Intermediate RAPID Verified 09/29/25 11:04 HEART RATE erythromycin base (From Allergy Intermediate I-RASH Verified 09/29/25 11:04 E-Mycin) estrogens, conjugated (From Allergy Intermediate I-RASH Verified 09/29/25 11:04 Premarin) morphine Allergy Intermediate RAPID Verified 09/29/25 11:04 HEART RATE Penicillins Allergy Intermediate I-RASH Verified 09/29/25 11:04 Sulfa (Sulfonamide Allergy Intermediate I-RASH Verified 09/29/25 11:04 Antibiotics) Exam Data for Last 24 hours Vital signs and Labs for Last 24 Hours: Temp Pulse Resp BP Pulse Ox O2 Del Method 98.2 F 83 21 153/88 H 93 L Room Air 09/29/25 10:49 09/29/25 14:05 09/29/25 14:05 09/29/25 14:05 09/29/25 14:05 09/29/25 10:49 Laboratory Results - last 24 hr 09/29/25 11:07: WBC 6.3, RBC 4.62, Hgb 13.6, Hct 39.5, MCV 85.5, MCH 29.4, MCHC 34.4, RDW 13.5, Plt Count 148, MPV 9.9, Neut % (Auto) 71.8, Lymph % (Auto) 19.6, [place] % (Auto) 6.2, Eos % (Auto) 1.3, Baso % (Auto) 0.5, Neut # (Auto) 4.5, Lymph # (Auto) 1.2, [place] # (Auto) 0.4, Eos # (Auto) 0.1, Baso # (Auto) 0.0, D-Dimer 2.58 H, Sodium 139, Potassium 3.8, Chloride 99, Carbon Dioxide 27, Anion Gap 16.8 H, BUN 12, Creatinine 0.70, Estimated Creat Clear 66, Estimated GFR 83, Est GFR ( Amer) 101, Glucose 214 H, Calcium 9.3, Magnesium 1.7, Total Bilirubin 1.1, AST 33, ALT 34, Alkaline Phosphatase 89, Troponin I < 0.01, NT-Pro-B Natriuret Pep 30.6, Total Protein 7.4, Albumin 4.9, Globulin 2.5, Albumin/Globulin Ratio 2.0 H, Lipase 83, HCV Ab TRACY w/Rflx PCR Qn Negative, HIV Ag/Ab Combo Qual Negative 09/29/25 11:40: SARS-CoV-2 (PCR) Detected A, Influenza A Untype (PCR) Not detected, Influenza Type B (PCR) Not detected I & O for Last 24 hours: Intake & Output 09/26/25 09/27/25 09/28/25 09/29/25 23:59 23:59 23:59 23:59 Weight 77.111 kg Constitutional Constitutional: mild distress, obese and cooperative *Routine HEENT Exam Head: Present normocephalic Eye: Present EOMI and PERRL ENT: Present mucous membranes moist *Routine Neck Exam Neck: Present supple; Absent lymphadenopathy *Routine Respiratory Exam Respiratory: Present CTA bilaterally; Absent rhonchi, wheezes or crackles *Routine Cardiovascular Exam Cardiovascular: Present RRR *Routine Abdominal Exam Abdominal: Present soft and normoactive bowel sounds; Absent tenderness *Routine Rectal Exam Rectal:: deferred *Routine Genitalia Exam Genitalia:: deferred *Routine Extremities Exam Extremities: Absent cyanosis, clubbing or edema Comments: No tenderness to palpation or Homans' sign *Routine Skin Exam Skin: Present intact and warm; Absent rash *Routine Neurological Exam Neurological: Present alert, oriented X3 and moving all extremities; Absent altered mental status Assessment and Plan *Assessment and plan (1) Pulmonary embolism: Status: Acute Category: Medical Code(s): I26.99 - Other pulmonary embolism without acute cor pulmonale (2) Chest pain: Status: Acute Category: Medical Code(s): R07.9 - Chest pain, unspecified (3) Hypertension: Status: Chronic Category: Medical Code(s): I10 - Essential (primary) hypertension (4) Hypothyroid: Status: Chronic Category: Medical Code(s): E03.9 - Hypothyroidism, unspecified (5) Diabetes: Status: Chronic Category: Medical Code(s): E11.9 - Type 2 diabetes mellitus without complications (6) Obesity (BMI 30.0-34.9): Status: Chronic Category: Medical Code(s): E66.811 - Obesity, class 1 (7) COVID-19: Status: Acute Category: Medical Code(s): U07.1 - COVID-19 Plan 65-year-old female who presents with chest pain and discomfort starting today. Workup in the ER found to have bilateral PE. Also COVID-positive. Discussed case with ER physician, request admission for Lovenox therapy and monitoring with serial troponins. Decided to admit for monitoring overnight. Hemodynamically stable. On room air. Problems addressed as follows: Bilateral PE COVID-19 infection -Respiratory swab positive for COVID. Has had symptoms for about a day per her report With her chest discomfort but says she has not felt right for about 2 weeks. Is just been more fatigued. - CT obtained in the ER, per my review shows moderate size lower lobe PE on right side. Does not appear to have right heart strain per formal read. RV to LV ratio 0.75. - Initiate Lovenox 1 mg/kg twice daily. Initial and 3-hour troponin less than 0.01. EKG per my review shows no Q in 3, or S and 1. Does have inverted T wave in lead III however. - if does well overnight and remains hemodynamically stable, consider transitioning to Eliquis in the morning. - Looking normal at 6.3, hemoglobin 15.6. Platelets 148. Kidney function normal with BUN 12, creatinine 0.7. - Repeat CBC, CMP, magnesium ordered for the morning. Diabetes: Initial glucose 187. A1c elevated at 9.1. Will continue patient's 70/30 combo twice daily of 20 units. Initiate sliding scale insulin with fingersticks ACHS. Will need further adjustment as an outpatient for improved glucose control. Resume Ozempic after discharge per home regimen Continue BuSpar 10 mg 3 times a day for anxiety Continue lisinopril 20 mg daily for hypertension Hypothyroid: TSH elevated at 10. Reports compliance with levothyroxine at home. Increase to levothyroxine 175 mcg daily. Needs repeat TSH in 4 to 6 weeks. Obesity: Complicates all aspects of her care Full code lovenox 1mg/kg BID diabetic diet
--- NOTE | 2025-09-29 14:47 | HMH.PHAINT1 ---
Pharmacy Intervention Comments: MEDICATION RECONCILIATION COMPLETED ON PATIENT USING EXTERNAL FILL HISTORY FROM PHARMACY AND CRISTAL REPORT. -LEO WHITMORE, DARRICKD
--- NOTE | 2025-09-29 15:06 | PC.NURSE ---
REPORT CALLED TO EFE CHAUDHARY FOR ROOM 209
[2025-09-29 15:47] LABS: Troponin I < 0.01 ng/ml (0.00-0.034)
[2025-09-29 16:03] LABS: POC Glucose,Bedside 187 gm/dL (70-110)
[2025-09-29] MEDS: humaLOG 100 UNITS/ML 10ML VIAL (SSI) SUBCUT ×2 (16:13→21:20)
[2025-09-29] MEDS: HYDROCODONE/APAP 5/325 MG TABLET 1 TAB PO (16:13)
[2025-09-29 16:14] LABS: Hemoglobin A1C 9.1 % (4.0-6.0); Thyroid Stimulating Hormone 10.30 uIU/mL (0.465-4.68)
[2025-09-29 19:11] LABS: Troponin I < 0.01 ng/ml (0.00-0.034)
[2025-09-29 20:08] LABS: POC Glucose,Bedside 315 gm/dL (70-110)
[2025-09-29] MEDS: humaLOG MIX 75/25 3ML FLEXPEN 20 UNIT SUBCUT (20:10)
[2025-09-29] MEDS: ACETAMINOPHEN 325MG TAB 650 MG PO (20:11)
[2025-09-29] MEDS: PANTOPRAZOLE 40MG TABLET 40 MG PO (20:11)
[2025-09-29] MEDS: BUSPIRONE HCL 10 MG TABLET PO (20:11)
[2025-09-29 21:33] LABS: POC Glucose,Bedside 289 gm/dL (70-110)
[2025-09-30] VITALS: BP 122/65; PULSE 70; PULSE 75; RESP 16; TEMP 36.8; O2SAT 96
[2025-09-30 04:00] VITALS: BP 131/70; PULSE 70; PULSE 77; RESP 16; TEMP 36.6; O2SAT 93; BMI 33.0
--- NOTE | 2025-09-30 04:00 | PC.NURSE ---
Alert and oriented. Complained of headache one time, treated per dec. Lovenox given per dec. Room air. Lung sounds mostly clear, diminished in lower lobes. Independent in the room. Call light in reach.
[2025-09-30] MEDS: humaLOG 100 UNITS/ML 10ML VIAL (SSI) SUBCUT ×2 (06:43→12:12)
[2025-09-30 06:49] LABS: Hematocrit 37.6 % (37.0-47.0); Hemoglobin 12.7 g/dL (12.2-16.2); Immature Granulocytes % 0.3 %; Mean Corpuscular HGB Conc 33.8 g/dL (31.8-35.4); Mean Corpuscular Hemoglobin 29.2 pg (27.0-31.2); Mean Corpuscular Volume 86.4 fl (81-99); Nucleated Red Blood Cells % 0 %; Platelet Count 147 K/mm3 (142-424); Red Blood Count 4.35 M/mm3 (4.20-5.40); Red Cell Distribution Width-SD 42.3 fL; White Blood Count 6.3 K/mm3 (4.8-10.8)
[2025-09-30 07:01] LABS: Albumin Level 4.4 g/dl (3.5-5.0); Chloride 104 mmol/L (98-107); Potassium 3.2 mmoL/L (3.5-5.1); Sodium 138 mmol/L (136-145)
[2025-09-30 07:04] LABS: Alanine Aminotransferase 25 U/L (12-78); Albumin/Globulin Ratio 1.8 (1.1-1.8); Alkaline Phosphatase 79 U/L (38-126); Anion Gap 12.2 mEq/L (5-15); Aspartate Amino Transferase 32 U/L (14-36); Bilirubin,Total 1.0 mg/dl (0.2-1.3); Blood Urea Nitrogen 11 mg/dl (7-17); Calcium 8.7 mg/dl (8.4-10.2); Carbon Dioxide 25 mmol/L (22.0-30.0); Creatinine Clearance Estimated 68 mL/min (50-200); Creatinine,Serum 0.60 mg/dl (0.52-1.04); Estimated Glomerular Filt Rate 100 ml/min (>60); GFR (African American) 121 ML/MIN (>60); Globulin 2.4 g/dL (1.3-3.2); Glucose 157 mg/dl (74-100); Magnesium 1.8 mg/dl (1.6-2.3); Total Protein,Serum 6.8 g/dl (6.3-8.2)
[2025-09-30] MEDS: HYDROCODONE/APAP 5/325 MG TABLET 1 TAB PO (07:47)
[2025-09-30 07:57] VITALS: BP 145/87; PULSE 100; RESP 18; TEMP 37.1; O2SAT 94
[2025-09-30 08:00] VITALS: PULSE 96
[2025-09-30 08:53] LABS: Free T4 (Free Thyroxine) 1.16 ng/dl (0.78-2.19)
[2025-09-30] MEDS: LISINOPRIL 20MG TABLET 20 MG PO (09:39)
[2025-09-30] MEDS: BUSPIRONE HCL 10 MG TABLET PO ×2 (09:39→12:11)
[2025-09-30] MEDS: humaLOG MIX 75/25 3ML FLEXPEN 20 UNIT SUBCUT (09:39)
[2025-09-30] MEDS: LEVOTHYROXINE 175MCG (0.175MG) TAB 175 MCG PO (09:39)
[2025-09-30 09:51] LABS: POC Glucose,Bedside 259 gm/dL (70-110)
[2025-09-30] MEDS: KETOROLAC 30MG/ML VIAL 30 MG IV (10:42)
--- NOTE | 2025-09-30 11:21 | P.DS_ITS ---
General Admission date:: 09/29/25 HPI HPI HPI: Ms. Olvera is a 65-year-old female with history of diabetes and hypothyroid. Presented with complaint of some left-sided chest pain that began early this morning. Has been more fatigued the past few weeks but pain and discomfort began today. On arrival to the ER, found to be hypertensive with blood pressure of 225/120. Stable on room air at the time. Workup in the ER with CBC, CMP, D- dimer and EKG. D-dimer elevated which led to CT of chest. CTA showed subsegmental PEs. Given persistent chest pain, medicine consulted for admission and Lovenox therapy with monitoring overnight. Troponin 0.01. EKG showing no ST elevation. Does have inverted T wave in lead III. No right heart strain on CTA of chest. Upon arrival to the floor, patient is alert and oriented x 4. Appears in very mild distress. On room air. Still complaining of some mild pain but improving. No nausea or vomiting. Was found to be COVID-positive but in no distress from that at this time. Of note had back surgery earlier this year but has been ambulatory. No previous history of PE or DVT. Denies any leg swelling or pain. Hospital Course Hospital Course Hospital Course: April Olvera 65-year-old female who presented with chest pain and discomfort. Workup in the ER found to have bilateral PE. Also COVID-positive. Bilateral PE COVID-19 infection - Respiratory swab positive for COVID. Has had symptoms for about a day per her report with her chest discomfort but says she has not felt right for about 2 weeks. - CTA chest admission shows right greater than left PE. No evidence of heart strain, troponinemia, hypoxia. Remained on room air ? Treated with levofloxacin, monitored without evidence of respiratory decompensation or NSTEMI. ? PE in the setting of COVID-19 likely provoked, will transition to Xarelto with referral to cardiology for further management. ? Patient continues to have symptoms related to acute viral syndrome, no other focal infectious symptoms. ? Will refrain from starting Paxlovid in the setting of PE. ? Discharged with Xarelto 50 mg twice daily for 20 more days, then 20 mg daily. Will follow-up with cardiology within 2 weeks. Hypothyroid: TSH elevated at 10. Reports compliance with levothyroxine at home. Increase to levothyroxine from 150 175 mcg daily. Needs repeat TSH in 4 to 6 weeks. Diabetes: A1c elevated at 9.1. Will continue patient's 70/30 combo twice daily of 20 units. Continue home Ozempic after discharge per home regimen. Will need further diabetes management with PCP. Continue BuSpar 10 mg 3 times a day for anxiety Continue lisinopril 20 mg daily for hypertension Obesity: Complicates all aspects of her care Exam Data for Last 24 hours Vital signs and Labs for Last 24 Hours: Temp Pulse Resp BP Pulse Ox O2 Del Method 98.7 F 96 H 18 145/87 H 94 L Room Air 09/30/25 07:57 09/30/25 08:00 09/30/25 07:57 09/30/25 07:57 09/30/25 07:57 09/30/25 09:15 Laboratory Results - last 24 hr 09/29/25 11:07: WBC 6.3, RBC 4.62, Hgb 13.6, Hct 39.5, MCV 85.5, MCH 29.4, MCHC 34.4, RDW 13.5, Plt Count 148, MPV 9.9, Neut % (Auto) 71.8, Lymph % (Auto) 19.6, [place] % (Auto) 6.2, Eos % (Auto) 1.3, Baso % (Auto) 0.5, Neut # (Auto) 4.5, Lymph # (Auto) 1.2, [place] # (Auto) 0.4, Eos # (Auto) 0.1, Baso # (Auto) 0.0, D-Dimer 2.58 H, Sodium 139, Potassium 3.8, Chloride 99, Carbon Dioxide 27, Anion Gap 16.8 H, BUN 12, Creatinine 0.70, Estimated Creat Clear 66, Estimated GFR 83, Est GFR ( Amer) 101, Glucose 214 H, Hemoglobin A1c 9.1 H, Calcium 9.3, Magnesium 1.7, Total Bilirubin 1.1, AST 33, ALT 34, Alkaline Phosphatase 89, Troponin I < 0.01, NT-Pro-B Natriuret Pep 30.6, Total Protein 7.4, Albumin 4.9, Globulin 2.5, Albumin/Globulin Ratio 2.0 H, Lipase 83, TSH 10.30 H, HCV Ab TRACY w/Rflx PCR Qn Negative, HIV Ag/Ab Combo Qual Negative 12/24/25 11:40: SARS-CoV-2 (PCR) Detected A, Influenza A Untype (PCR) Not detected, Influenza Type B (PCR) Not detected 09/29/25 15:10: Troponin I < 0.01 09/29/25 15:45: POC Glucose 187 H 09/29/25 18:16: Troponin I < 0.01 09/29/25 20:00: POC Glucose 315 H* 09/29/25 21:14: POC Glucose 289 H 09/30/25 06:22: WBC 6.3, RBC 4.35, Hgb 12.7, Hct 37.6, MCV 86.4, MCH 29.2, MCHC 33.8, RDW 13.7, Plt Count 147, MPV 10.1, Neut % (Auto) 65.1, Lymph % (Auto) 25.0, [place] % (Auto) 7.2, Eos % (Auto) 1.9, Baso % (Auto) 0.5, Neut # (Auto) 4.1, Lymph # (Auto) 1.6, [place] # (Auto) 0.5, Eos # (Auto) 0.1, Baso # (Auto) 0.0, Sodium 138, Potassium 3.2 L, Chloride 104, Carbon Dioxide 25, Anion Gap 12.2, BUN 11, Creatinine 0.60, Estimated Creat Clear 68, Estimated GFR 100, Est GFR ( Amer) 121, Glucose 157 H D, Calcium 8.7, Magnesium 1.8, Total Bilirubin 1.0, AST 32, ALT 25 D, Alkaline Phosphatase 79, Total Protein 6.8, Albumin 4.4 D, Globulin 2.4, Albumin/Globulin Ratio 1.8, Free T4 1.16 09/30/25 09:37: POC Glucose 259 H I & O for Last 24 hours: Intake & Output 09/27/25 09/28/25 09/29/25 09/30/25 23:59 23:59 23:59 23:59 Intake Total 660 / 660 180 / 180 Output Total 0 / 0 0 / 0 Balance 660 / 660 180 / 180 Weight 77.111 kg 79.424 kg Constitutional Constitutional: no acute distress, obese and chronically ill appearing *Routine HEENT Exam Head: Present normocephalic Eye: Present EOMI and PERRL ENT: Present mucous membranes moist *Routine Neck Exam Neck: Present supple; Absent lymphadenopathy *Routine Respiratory Exam Respiratory: Present CTA bilaterally *Routine Cardiovascular Exam Cardiovascular: Present RRR *Routine Abdominal Exam Abdominal: Present soft and normoactive bowel sounds; Absent tenderness *Routine Extremities Exam Extremities: Absent cyanosis, clubbing or edema *Routine Skin Exam Skin: Present warm; Absent rash *Routine Neurological Exam Neurological: Present alert and oriented X3 Results Data Completed and Pending Labs on day of discharge: Labs from last 24 hours 09/30/25 09/30/25 09/29/25 09:37 06:22 21:14 WBC 6.3 RBC 4.35 Hgb 12.7 Hct 37.6 MCV 86.4 MCH 29.2 MCHC 33.8 RDW 13.7 Plt Count 147 MPV 10.1 Neut % (Auto) 65.1 Lymph % (Auto) 25.0 [place] % (Auto) 7.2 Eos % (Auto) 1.9 Baso % (Auto) 0.5 Neut # (Auto) 4.1 Lymph # (Auto) 1.6 [place] # (Auto) 0.5 Eos # (Auto) 0.1 Baso # (Auto) 0.0 D-Dimer Sodium 138 Potassium 3.2 L Chloride 104 Carbon Dioxide 25 Anion Gap 12.2 BUN 11 Creatinine 0.60 Estimated Creat Clear 68 Estimated GFR 100 Est GFR ( Amer) 121 Glucose 157 H D POC Glucose 259 H 289 H Hemoglobin A1c Calcium 8.7 Magnesium 1.8 Total Bilirubin 1.0 AST 32 ALT 25 D Alkaline Phosphatase 79 Troponin I NT-Pro-B Natriuret Pep Total Protein 6.8 Albumin 4.4 D Globulin 2.4 Albumin/Globulin Ratio 1.8 Lipase TSH Free T4 1.16 SARS-CoV-2 (PCR) HCV Ab TRACY w/Rflx PCR Qn HIV Ag/Ab Combo Qual Influenza A Untype (PCR) Influenza Type B (PCR) 09/29/25 09/29/25 09/29/25 20:00 18:16 15:45 WBC RBC Hgb Hct MCV MCH MCHC RDW Plt Count MPV Neut % (Auto) Lymph % (Auto) [place] % (Auto) Eos % (Auto) Baso % (Auto) Neut # (Auto) Lymph # (Auto) [place] # (Auto) Eos # (Auto) Baso # (Auto) D-Dimer Sodium Potassium Chloride Carbon Dioxide Anion Gap BUN Creatinine Estimated Creat Clear Estimated GFR Est GFR ( Amer) Glucose POC Glucose 315 H* 187 H Hemoglobin A1c Calcium Magnesium Total Bilirubin AST ALT Alkaline Phosphatase Troponin I < 0.01 NT-Pro-B Natriuret Pep Total Protein Albumin Globulin Albumin/Globulin Ratio Lipase TSH Free T4 SARS-CoV-2 (PCR) HCV Ab TRACY w/Rflx PCR Qn HIV Ag/Ab Combo Qual Influenza A Untype (PCR) Influenza Type B (PCR) 09/29/25 09/29/25 09/29/25 15:10 11:40 11:07 WBC 6.3 RBC 4.62 Hgb 13.6 Hct 39.5 MCV 85.5 MCH 29.4 MCHC 34.4 RDW 13.5 Plt Count 148 MPV 9.9 Neut % (Auto) 71.8 Lymph % (Auto) 19.6 [place] % (Auto) 6.2 Eos % (Auto) 1.3 Baso % (Auto) 0.5 Neut # (Auto) 4.5 Lymph # (Auto) 1.2 [place] # (Auto) 0.4 Eos # (Auto) 0.1 Baso # (Auto) 0.0 D-Dimer 2.58 H Sodium 139 Potassium 3.8 Chloride 99 Carbon Dioxide 27 Anion Gap 16.8 H BUN 12 Creatinine 0.70 Estimated Creat Clear 66 Estimated GFR 83 Est GFR ( Amer) 101 Glucose 214 H POC Glucose Hemoglobin A1c 9.1 H Calcium 9.3 Magnesium 1.7 Total Bilirubin 1.1 AST 33 ALT 34 Alkaline Phosphatase 89 Troponin I < 0.01 < 0.01 NT-Pro-B Natriuret Pep 30.6 Total Protein 7.4 Albumin 4.9 Globulin 2.5 Albumin/Globulin Ratio 2.0 H Lipase 83 TSH 10.30 H Free T4 SARS-CoV-2 (PCR) Detected A HCV Ab TRACY w/Rflx PCR Qn Negative HIV Ag/Ab Combo Qual Negative Influenza A Untype (PCR) Not detected Influenza Type B (PCR) Not detected DS: Diagnosis Discharge Diagnosis (1) Pulmonary embolism: Status: Acute Code(s): I26.99 - Other pulmonary embolism without acute cor pulmonale (2) Chest pain: Status: Acute Code(s): R07.9 - Chest pain, unspecified (3) Hypertension: Status: Chronic Code(s): I10 - Essential (primary) hypertension (4) Hypothyroid: Status: Chronic Code(s): E03.9 - Hypothyroidism, unspecified (5) Diabetes: Status: Chronic Code(s): E11.9 - Type 2 diabetes mellitus without complications (6) Obesity (BMI 30.0-34.9): Status: Chronic Code(s): E66.811 - Obesity, class 1 (7) COVID-19: Status: Acute Code(s): U07.1 - COVID-19 Meds Home Medications and Allergies Home Medications ?Medication ?Instructions ?Recorded ?Confirmed ?Type albuterol sulfate 90 mcg/actuation 2 puff inhalation Q 4HP PRN wheezing 09/29/25 09/29/25 History aerosol inhaler buspirone 10 mg tablet 10 mg PO TID 09/29/25 History cyclobenzaprine 5 mg tablet 5 mg PO TIDP PRN muscle sp asm 09/29/25 09/29/25 History ergocalciferol (vitamin D2) 1,250 1,250 mcg PO WEEKLY 09/29/25 09/29/25 History mcg (50,000 unit) capsule insulin NPH-regular 70-30 U-100 20 unit SQ BID 5 09/29/25 History insulin 100 unit/mL subcutaneous pen (Humulin 70/30 U-100 KwikPen) lisinopril 20 mg tablet 20 mg PO DAILY 09/29/2509/07 History semaglutide 1 mg/dose (4 mg/3 mL) 1 mg SQ WEEKLY 09/2909/29/25 History subcutaneous pen injector (Ozempic) levothyroxine 175 mcg tablet 175 mcg PO DAILYDM 30 day s #30 tabs 09/30/25 Rx (Synthroid) rivaroxaban 15 mg (42)-20 mg (9) See Rx Instructions P O .COMPLEX 09/30/25 Rx tablets in a starter pack (Xarelto #51 tabs DVT-PE Treatment 30-Day Starter) New Prescriptions to Start Prescriptions: levothyroxine [Synthroid] Abdifatah Almendarez rivaroxaban [Xarelto DVT-PE Treat 30d Start] Abdifatah Almendarez Allergies Allergy/AdvReac Type Severity Reaction Status Date / Time cephalexin (From Keflex) Allergy Intermediate I-RASH Verified 09/29/25 11:04 cetirizine (From Zyrtec) Allergy Intermediate I-RASH Verified 09/29/25 11:04 codeine Allergy Intermediate RAPID Verified 09/29/25 11:04 HEART RATE erythromycin base (From Allergy Intermediate I-RASH Verified 09/29/25 11:04 E-Mycin) estrogens, conjugated (From Allergy Intermediate I-RASH Verified 09/29/25 11:04 Premarin) morphine Allergy Intermediate RAPID Verified 09/29/25 11:04 HEART RATE Penicillins Allergy Intermediate I-RASH Verified 09/29/25 11:04 Sulfa (Sulfonamide Allergy Intermediate I-RASH Verified 09/29/25 11:04 Antibiotics) Discharge Plan Disposition Patient Disposition: Home, Self-Care Condition: Fair Follow up Plan Follow up with: Tr Nazario PA [Physician Community Product Specialist, Cardiology] - 1 week Meli Gallardo [Primary Care Provider, Medical] - Enter time for follow up Prescriptions/Medication Reconciliation: New levothyroxine [Synthroid] 175 mcg Tablet 175 mcg PO DAILYDM 30 Days Qty: 30 0RF Xarelto DVT-PE Treat 30d Start 15 mg (42)- 20 mg (9) tablets,dose pack See Rx Instructions .ROUTE .COMPLEX Qty: 51 0RF Rx Instructions: take one-15 mg tablet twice daily for 20 days, then one-20 mg tablet once daily; must take with meal/food Continued lisinopril 20 mg tablet 20 mg PO DAILY albuterol sulfate 90 mcg/actuation HFA aerosol inhaler 2 puff INHALATION Q4HP PRN (Reason: wheezing) buspirone 10 mg tablet 10 mg PO TID ergocalciferol (vitamin D2) 1,250 mcg (50,000 unit) capsule 1,250 mcg PO WEEKLY Humulin 70/30 U-100 KwikPen 100 unit/mL (70-30) insulin pen 20 unit SQ BID Ozempic 1 mg/dose (4 mg/3 mL) pen injector 1 mg SQ WEEKLY cyclobenzaprine 5 mg tablet 5 mg PO TIDP PRN (Reason: muscle spasm) Discontinued levothyroxine 150 mcg tablet 150 mcg PO DAILY Problem Reconciliation Problems Reviewed?: Yes Patient Discharge Instructions Additional Instructions: Your blood work also indicated low thyroid function, so your dose of levothyroxine was adjusted to use 175 mcg daily. Please take this on an empty stomach daily and wait at least 30 minutes before a meal. Patient Instructions: DI for Pulmonary Embolism Print Language: Welsh Providers Primary Care Provider: Meli Gallardo Admit Provider: Derek Lizarraga Attending Provider: Derek Lizarraga
[2025-09-30 12:00] VITALS: BP 134/70; PULSE 72; PULSE 77; RESP 18; TEMP 36.9; O2SAT 95
[2025-09-30 12:27] LABS: POC Glucose,Bedside 198 gm/dL (70-110)
--- NOTE | 2025-10-01 10:09 | SW/DCPLANNER ---
Spoke with patient on the phone. Patient stated that she is doing okay and that she is hurting right now. Patient stated that she is aware of her upcoming appointments. 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 Patient stated that she has no concerns or questions at this time. Edwige Pereira
== END 2025-09-30 14:15 | disposition home or self-care (01) ==
LOC: ER 14:38 → 2ND 14:50
PROVIDERS: Nurse Practitioner; Student in an Organized Health Care Education/Training Program; Admitting Provider Internal Medicine Adolescent Medicine; Emergency Provider Student in an Organized Health Care Education/Training Program; PCP Nurse Practitioner Family; Visit Provider Internal Medicine Adolescent Medicine
DX: I26.99 Other pulmonary embolism without acute cor pulmonale (principal); I10 Essential (primary) hypertension; E03.9 Hypothyroidism, unspecified; E11.9 Type 2 diabetes mellitus without complications; E66.811 Obesity, class 1; U07.1 COVID-19; Z88.5 Allergy status to narcotic agent; Z88.0 Allergy status to penicillin; Z88.2 Allergy status to sulfonamides; Z88.6 Allergy status to analgesic agent; Z79.890 Hormone replacement therapy; Z79.4 Long term (current) use of insulin; Z79.01 Long term (current) use of anticoagulants; Z68.33 Body mass index [BMI] 33.0-33.9, adult
CPT/HCPCS: 36415; 71045; 71275; 80053; 82962; 83036; 83690; 83735; 83880; 84439; 84443; 84484; 85025; 85378; 86803; 87389; 87636; 93005; 99285; G0378; J0360; J1171; J1650; J1885; Q9967

== ENCOUNTER 2025-10-01 19:38 | Emergency (ER) | payer MEDICARE, MEDICAID, SELFPAY ==
--- OUTSIDE RECORDS SUMMARY | 2025-08-02 12:45 | XMS_ITS | Encounter Summary ---
Author Organization Healthcare Address [address] [place] [address] Care Team Providers Care Balloon Design Printer Name Role Phone GallardoMeli barnett MIGUEL ANGEL Primary Care Provider [phone] Tito Sue MD Unavailable [phone] Reason for Visit * Reason Comments Shortness of Breath Encounter Details Date Type Department Care Team ([facility] st Contact Info) Description 08/02/2025 1:45 PM EDT - 08/02/2025 6:35 PM EDT Emergency [facility] Emergency Department [address] [place] [id number] Sav Paulino MD [address] [place] [address] Lenora Kang MD [address] [place] [address] Shortness of breath (Primary Dx); Chest pain, unspecified type Discharge Disposition: Home or Self Care Social [...] week 10/02/2024 How often do you attend [facility] or [facility] services? Never 10/02/2024 Do you belong to any clubs o r organizations such as pentecostalism groups, unions, fraternal or athletic groups, or [...] Health Questionnaire-2 Score 0 02/24/2024 [facility] - Occupational Stress [...] any time in the past 12 m [facility], were you homeless or living in a care home (including now)? 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) to steady your nerves or to [...] Sign Reading Time Taken Comments Blood Pressure 152/120 08/02/2025 3:59 PM EDT Pulse 81 08/02/2025 3:59 PM EDT Temperature 36.5 C (97.7 F) 08/02/2025 3:59 PM EDT Respiratory Rate 18 08/02/2025 3:59 PM EDT Oxygen Saturation 99% 08/02/2025 3:59 PM EDT Inhaled Oxygen Concentration - - Weight 75.8 kg (167 lb) 08/02/2025 2:25 PM EDT Height 154.9 cm (5' 1 ) 08/02/2025 2:25 PM EDT Body Mass Index 31.55 08/02/2025 2:25 PM EDT documented in this encounter Functional Status * BMI (Calculated) Answer Date of Assessment Author 31.6 08/02/2025 2:25 PM EDT Misha Villavicencio RN * Percent Excess Weight Loss Answer Date of Assessment Author 0 08/02/2025 2:25 PM EDT Misha Villavicencio RN * Total Weight Change Percent Answer Date of Assessment Author 2222 08/02/2025 2:25 PM EDT Misha Villavicencio RN * Weight Change Since Preop Answer Date of Assessment Author 75.73 08/02/2025 2:25 PM EDT Misha Villavicencio RN * Initial Excess Weight Answer Date of Assessment Author -47.63 08/02/2025 2:25 PM EDT Misha Villavicencio RN * IBW in lbs (Bariatric) Answer Date of Assessment Author 105 08/02/2025 2:25 PM EDT Misha Villavicencio RN * Weight Change Since Last Visit Answer Date of Assessment Author 75.73 08/02/2025 2:25 PM EDT Misha Villavicencio RN * IBW in kg (Bariatric) Answer Date of Assessment Author 47.63 08/02/2025 2:25 PM EDT Misha Villavicencio RN * Percent of IBW Answer Date of Assessment Author 5609.91 08/02/2025 2:25 PM EDT Misha Villavicencio RN * EBW (kg) Answer Date of Assessment Author 2,670.65 08/02/2025 2:25 PM EDT Misha Villavicencio RN * EBW (lbs) Answer Date of Assessment Author 2,665.44 08/02/2025 2:25 PM EDT Misha Villavicencio RN * Safety Interventions Question Answer Date of Assessment Author Safety Precautions/Falls Reduction assistive device/personal items within reach 08/02/2025 2:38 PM EDT Katia Wang RN * General Emergency Care CPG Interventions Question Answer Date of Assessment Author Coping Interventions anticipatory guidan ce provided;education/info rmation provided 08/02/2025 2:38 PM EDT Katia Wang RN General Care Management calm environment promoted;positioned for comfort 08/02/2025 2:38 PM EDT Katia Wang RN * Acuity/Destination Question Answer Date of Assessment Author Patient Acuity 2 08/02/2025 12:02 PM EDT Ever Oneal RN * Weight Change 24 hrs Answer Date of Assessment Author 0 08/02/2025 2:25 PM EDT Misha Villavicencio RN * Vital Signs Question Answer Date of Assessment Author BP 152/120 08/02/2025 3:59 PM EDT Katia Martinez RN Temp 97.7 08/02/2025 3:59 PM EDT Katia Martinez RN Temp src Oral 08/02/2025 3:59 PM EDT Katia Martinez RN Pulse 81 08/02/2025 3:59 PM EDT Katia Martinez RN Resp 18 08/02/2025 3:59 PM EDT Katia Martinez RN Heart Rate Source Monitor 08/02/2025 3:59 PM EDT Katia Wang RN BP Location Left arm 08/02/2025 3:59 PM EDT Katia Martinez RN BP Method Automatic 08/02/2025 3:59 PM EDT Katia Martinez RN MAP (mmHg) 109 08/02/2025 2:00 PM EDT Merry Villavicencio RN Patient Position Lying 08/02/2025 3:59 PM EDT Katia Chapin, EFE * Oxygen Therapy Question Answer Date of Assessment Author SpO2 99 08/02/2025 3:59 PM EDT Katia Martinez, EFE O2 Flow Rate (L/min) 2 08/02/2025 3:59 PM E DT Katia Wang, RN Pulse Oximetry Type Continuous 08/02/2025 3:59 PM ED T Katia Wang RN Oxygen Therapy None 08/02/2025 3:59 PM EDT Katia Ignacio, RN O2 Delivery Method Nasal cannula 08/02/2025 3:59 PM ED T Katia Wang, EFE * BSA (Calculated - sq m) Answer Date of Assessment Author 1.81 08/02/2025 2:25 PM EDT Misha Villavicencio RN * BMI (Calculated) Answer Date of Assessment Author 31.57 08/02/2025 2:25 PM EDT Misha Villavicencio RN * Height and Weight Question Answer Date of Assessment Author Height 61 08/02/2025 2:25 PM EDT Merry Villavicencio RN Weight 2672 08/02/2025 2:25 PM EDT Merry Villavicencio RN * IBW/kg (Calculated) Male Answer Date of Assessment Author 52.3 08/02/2025 2:25 PM EDT Misha Villavicencio RN * IBW/kg (Calculated) Female Answer Date of Assessment Author 47.8 08/02/2025 2:25 PM EDT Misha Villavicencio RN * PAINAD (Pain Assessment in Advanced Dementia) Question Answer Date of Assessment Author Pain Management Interventions rest;quiet environment facilitated 08/02/2025 5:53 PM EDT Katia Wang, RN * Provider Notification Question Answer Date of Assessment Author Provider Role Resident 08/02/2025 3:58 PM EDT Katia Hussein, RN Provider Name Duncan Baker 08/02/2025 3:58 PM EDT Katia Ignacio, RN Method of Communication Call 08/02/2025 3:58 P M EDT Katia Wang, RN Reason for Communication Abnormal vitals;Change in status 08/02/2025 3:58 PM EDT Katia Wang RN Response En route 08/02/2025 3:58 PM EDT Katia Martinez RN Notification Time [id number] 08/02/2025 3:58 PM EDT Katia Wang RN * Airway Question Answer Date of Assessment Author Airway ([facility]) [facility] 08/02/2025 3:53 PM EDT Katia Martinez RN * Breathing Question Answer Date of Assessment Author Breathing ([facility]) [facility] 08/02/2025 3:53 PM EDT Katia Taylor RN * Circulation Question Answer Date of Assessment Author Circulation ([facility]) [facility] 08/02/2025 3:53 PM EDT Katia Wang RN * Disability Question Answer Date of Assessment Author Disability ([facility]) [facility] 08/02/2025 3:53 PM EDT Katia Chapin RN * Restart Vitals Timer Answer Date of Assessment Author Yes 08/02/2025 3:59 PM EDT Katia Wang RN * IBW/kg (Calculated) Answer Date of Assessment Author 47.8 08/02/2025 2:25 PM EDT Misha Villavicencio RN * Calculated C-SSRS Risk Score (Lifetime/Recent) Answer Date of Assessment Author No Risk Indicated 08/02/2025 2:15 PM EDT Katia Wang RN * Learning Assessment Question Answer Date of Assessment Author Education Level High school 08/02/2025 2:38 PM EDT Katia Taylor RN Factors that Impact Ability to Learn None 08/02/2025 2:38 PM EDT Katia Wang RN Cultural Considerations None 08/02/2025 2:38 P M EDT Katia Wang RN Sikhism Considerations None 08/02/2025 2:38 PM EDT Katia Wang RN * Abuse Screen Question Answer Date of Assessment Author Are you or have you been threatened or abused physically, emotionally, or sexually by a partner, spouse, or family member? No 08/02/2025 2:38 PM EDT Katia Taylor RN * KINDER 1 Fall Risk Factor Assessment Question Answer Date of Assessment Author Presented to ED because of fall 0 2:38 PM EDT Katia Wang RN Age > 70 0 08/02/2025 2:38 PM EDT Katia Martinez RN Intoxicated with alcohol or substance confusion 0 08/02/2025 2:38 PM EDT Katia Wang RN Ambulates or transfers with assistive devices or assist 0 08/02/2025 2:38 PM EDT Katia Wang RN Unable to ambulate or transfer 0 08/02/2025 2:38 PM EDT Katia Wang RN Nursing judgement 0 08/02/2025 2:38 PM EDT Katia Wang, FEE KINDER 1 Fall Risk Score 0 08/02/2025 2:38 PM EDT Katia Wang RN * [place] Suicide Severity Rating Scale Question Answer Date of Assessment Author Is patient awake, alert, and able to answer questions appropriately? Yes 08/02/2025 2:15 PM EDT Katia Taylor, EFE * Patient Belongings Placed in Locker Question Answer Date of Assessment Author Belongings at Bedside Retained by bob alves and/or family/legal direct marketing representative who assumes responsibility 08/02/2025 2:37 PM EDT Katia Wang RN * [place] Suicide Severity Rating Scale Question Answer Date of Assessment Author 1. Wish to be (Past 1 Month) No 025 2:15 PM EDT Katia Wang RN 2. Non-Specific Active Suici judy Thoughts (Past 1 Month) No 08/02/2025 2:15 PM EDT Heather Wang RN 6. Suicidal Behavior (Lifetime) No 2:15 PM EDT Katia Wang RN * Weight in (lb) to have BMI = 25 Answer Date of Assessment Author 132 08/02/2025 2:25 PM EDT Misha Villavicencio RN * BMI (Calculated) Answer Date of Assessment Author 31.6 08/02/2025 2:25 PM EDT Misha Villavicencio RN * Percent Excess Weight Loss Answer Date of Assessment Author 0 08/02/2025 2:25 PM EDT Misha Villavicencio RN * Weight Change Since Preop Answer Date of Assessment Author 75.75 08/02/2025 2:25 PM EDT Misha Villavicencio RN * Initial Excess Weight Answer Date of Assessment Author -47.63 08/02/2025 2:25 PM EDT Misha Villavicencio RN * IBW in kg (Bariatric) Answer Date of Assessment Author 47.63 08/02/2025 2:25 PM EDT Misha Villavicencio RN * IBW in lb (Bariatric) Answer Date of Assessment Author 105 08/02/2025 2:25 PM EDT Misha Villavicencio RN * Weight Change Since Last Visit Answer Date of Assessment Author 75.75 08/02/2025 2:25 PM EDT Misha Villavicencio RN * Percent of IBW Answer Date of Assessment Author 159.05 08/02/2025 2:25 PM EDT Misha Villavicencio RN * EBW (kg) Answer Date of Assessment Author 28.1 08/02/2025 2:25 PM EDT Misha Villavicencio RN * EBW (lb) Answer Date of Assessment Author 62 08/02/2025 2:25 PM EDT Misha Villavicencio RN * Difference in Weight Since Last Visit Answer Date of Assessment Author 0 08/02/2025 2:25 PM EDT Misha Villavicencio RN * Temp (in Celsius) for SUQUAM[place] IV Answer Date of Assessment Author 36.5 08/02/2025 3:59 PM EDT Katia Wang, RN * Pain Assessment Question Answer Date of Assessment Author Pain Location Chest 08/02/2025 5:19 PM EDT Katia Hussein RN Pain Orientation Left 08/02/2025 2:28 PM EDT Merry Bourgeois RN Patient's Stated Pain Goal 4 08/02/2025 2:2 8 PM EDT Merry Villavicencio RN Clinical Progression Not changed 08/02/2025 2:28 PM E DT Merry Villavicencio RN Pain Score 6 08/02/2025 5:53 PM EDT Katia Martinez RN * IBW/kg (Calculated) Answer Date of Assessment Author 47.8 08/02/2025 2:25 PM EDT Misha Villavicencio RN * Adult Low Range Vt 6mL/kg Answer Date of Assessment Author 286.8 08/02/2025 2:25 PM EDT Misha Villavicencio RN * Adult Moderate Range Vt 8mL/kg Answer Date of Assessment Author 382.4 08/02/2025 2:25 PM EDT Misha Villavicencio RN * Adult High Range Vt 10mL/kg Answer Date of Assessment Author 478 08/02/2025 2:25 PM EDT Misha Villavicencio RN * Pain Assessment Answer Date of Assessment Author 0-10 (Adult DVPRS/Peds 0-10) 08/02/2025 5:24 PM EDT Katia Wang RN * Cardiac Question Answer Date of Assessment Author Pain Descriptors Tightness 08/02/2025 3:53 PM EDT Katia Chapin RN Chest Pain Present Yes 08/02/2025 3:53 PM EDT Katia Wang RN Cardiac (WDL) X 08/02/2025 3:53 PM EDT Katia Hussein RN * Vitals Timer Question Answer Date of Assessment Author Restart Vitals Timer Yes 08/02/2025 3:59 PM E DT Katia Wang, EFE * Hourly Rounding Question Answer Date of Assessment Author Activity Assistance Patient independent 08/02/20 5:53 PM EDT Katia Wang RN Repositioned Turns self 08/02/2025 5:53 PM EDT Katia Wang RN Head of Bed Elevated HOB 30 08/02/2025 5:53 PM EDT Katia Wang RN Toileting Independent 08/02/2025 5:53 PM EDT Katia Wang RN Call Light Call light present a nd within reach 08/02/2025 5:53 PM EDT Katia Wang RN Rest/ Sleep No problem identified 08/02/2025 5:53 PM EDT Katia Wang RN Rest/ Sleep Enhancement Care clustered t o minimize awakenings 08/02/2025 2:28 PM EDT Merry Villavicencio RN Completed Hourly Rounding Yes 08/02/2025 5:53 PM EDT Katia Wang RN Plan of Care Reviewed With Patient 08/02/2025 5:53 PM EDT Katia Wang RN * Safety Interventions Question Answer Date of Assessment Author Safety Precautions/Falls Reduction assistive device/personal items within reach 08/02/2025 2:38 PM EDT Katia Wang RN * General Emergency Care CPG Interventions Question Answer Date of Assessment Author Coping Interventions anticipatory guidan ce provided;education/info rmation provided 08/02/2025 2:38 PM EDT Katia Wang, EFE General Care Management calm environment promoted;positioned for comfort 08/02/2025 2:38 PM EDT Katia Wang RN * Vital Signs Question Answer Date of Assessment Author BP 152/120 08/02/2025 3:59 PM EDT Katia Martinez RN Temp 97.7 08/02/2025 3:59 PM EDT Katia Martinez RN Temp src Oral 08/02/2025 3:59 PM EDT Katia Martinez RN Pulse 81 08/02/2025 3:59 PM EDT Katia Martinez RN Resp 18 08/02/2025 3:59 PM EDT Katia Martinez RN Heart Rate Source Monitor 08/02/2025 3:59 PM EDT Katia Wang RN BP Location Left arm 08/02/2025 3:59 PM EDT Katia Martinez RN BP Method Automatic 08/02/2025 3:59 PM EDT Katia Hussein RN MAP (mmHg) 109 08/02/2025 2:00 PM EDT Merry Villavicencio RN Patient Position Lying 08/02/2025 3:59 PM EDT Katia Chapin RN * Oxygen Therapy Question Answer Date of Assessment Author SpO2 99 08/02/2025 3:59 PM EDT Katia Martinez RN O2 Flow Rate (L/min) 2 08/02/2025 3:59 PM E DT Katia Wang RN Pulse Oximetry Type Continuous 08/02/2025 3:59 PM ED T Katia Wang RN Oxygen Therapy None 08/02/2025 3:59 PM EDT Katia Ignacio RN O2 Delivery Method Nasal cannula 08/02/2025 3:59 PM ED T Katia Wang RN * BSA (Calculated - sq m) Answer Date of Assessment Author 1.81 08/02/2025 2:25 PM EDT Misha Villavicencio RN * BMI (Calculated) Answer Date of Assessment Author 31.57 08/02/2025 2:25 PM EDT Misha Villavicencio RN * Height and Weight Question Answer Date of Assessment Author Height 61 08/02/2025 2:25 PM EDT Merry Villavicencio RN Weight 2672 08/02/2025 2:25 PM EDT Merry Villavicencio RN * PAINAD (Pain Assessment in Advanced Dementia) Question Answer Date of Assessment Author Pain Management Interventions rest;quiet environment facilitated 08/02/2025 5:53 PM EDT Katia Wang RN * Provider Notification Question Answer Date of Assessment Author Provider Role Resident 08/02/2025 3:58 PM EDT Katia Hussein RN Provider Name Duncan Baker 08/02/2025 3:58 PM EDT Katia Ignacio RN Method of Communication Call 08/02/2025 3:58 P M EDT Katia Wang RN Reason for Communication Abnormal vitals;Change in status 08/02/2025 3:58 PM EDT Katia Wang RN Response En route 08/02/2025 3:58 PM EDT Katia Martinez RN Notification Time [id number] 08/02/2025 3:58 PM EDT Katia Wang RN * Restart Vitals Timer Answer Date of Assessment Author Yes 08/02/2025 3:59 PM EDT Katia Wang RN * Calculated C-SSRS Risk Score (Lifetime/Recent) Answer Date of Assessment Author No Risk Indicated 08/02/2025 2:15 PM EDT Katai Wang RN * Learning Assessment Question Answer Date of Assessment Author Education Level High school 08/02/2025 2:38 PM EDT Katia Taylor, RN Factors that Impact Ability to Learn None 08/02/2025 2:38 PM EDT Katia Wang RN Cultural Considerations None 08/02/2025 2:38 P M EDT Katia Wang RN Sikhism Considerations None 08/02/2025 2:38 PM EDT Katia Wang, EFE * KINDER 1 Fall Risk Factor Assessment Question Answer Date of Assessment Author Presented to ED because of fall 0 2:38 PM EDT Katia Wang RN Age > 70 0 08/02/2025 2:38 PM EDT Katia Martinez RN Intoxicated with alcohol or substance confusion 0 08/02/2025 2:38 PM EDT Katia Wang RN Ambulates or transfers with assistive devices or assist 0 08/02/2025 2:38 PM EDT Katia Wang RN Unable to ambulate or transfer 0 08/02/2025 2:38 PM EDT Katia Wang RN Nursing judgement 0 08/02/2025 2:38 PM EDT Katia Wang, EFE OWENS 1 Fall Risk Score 0 08/02/2025 2:38 PM EDT Katia Wang, EFE * Patient Belongings Placed in Locker Question Answer Date of Assessment Author Belongings at Bedside Retained by bob t and/or family/legal direct marketing representative who assumes responsibility 08/02/2025 2:37 PM EDT Katia Wang RN * [place] Suicide Severity Rating Scale Question Answer Date of Assessment Author 1. Wish to be (Past 1 Month) No 025 2:15 PM EDT Katia Wang, EFE 2. Non-Specific Active Suici judy Thoughts (Past 1 Month) No 08/02/2025 2:15 PM EDT Heather Wang RN 6. Suicidal Behavior (Lifetime) No 2:15 PM EDT Katia Wang, RN * Weight in (lb) to have BMI = 25 Answer Date of Assessment Author 132 08/02/2025 2:25 PM EDT Misha Villavicencio RN * Pain Assessment Question Answer Date of Assessment Author Pain Location Chest 08/02/2025 5:19 PM EDT Katia Hussein, EFE Pain Orientation Left 08/02/2025 2:28 PM EDT Merry Bourgeois RN Patient's Stated Pain Goal 4 08/02/2025 2:2 8 PM EDT Merry Villavicencio RN Clinical Progression Not changed 08/02/2025 2:28 PM E DT Merry Villavicencio RN Pain Score 6 08/02/2025 5:53 PM EDT Katia Martinez RN * Pain Assessment Answer Date of Assessment Author 0-10 (Adult DVPRS/Peds 0-10) 08/02/2025 5:24 PM EDT Katia Wang RN * Cardiac Question Answer Date of Assessment Author Pain Descriptors Tightness 08/02/2025 3:53 PM EDT Katia Chapin RN * Hourly Rounding Question Answer Date of Assessment Author Activity Assistance Patient independent 08/02/20 5:53 PM EDT Katia Wang RN Repositioned Turns self 08/02/2025 5:53 PM EDT Katia Wang RN Head of Bed Elevated HOB 30 08/02/2025 5:53 PM EDT Katia Wang RN Toileting Independent 08/02/2025 5:53 PM EDT Katia Wang RN Call Light Call light present a nd within reach 08/02/2025 5:53 PM EDT Katia Wang RN Rest/ Sleep No problem identified 08/02/2025 5:53 PM EDT Katia Wang RN Rest/ Sleep Enhancement Care clustered t o minimize awakenings 08/02/2025 2:28 PM EDT Merry Villavicencio RN Completed Hourly Rounding Yes 08/02/2025 5:53 PM EDT Katia Wang RN Plan of Care Reviewed With Patient 08/02/2025 5:53 PM EDT Katia Wang RN documented as of this encounter Mental Status * BMI (Calculated) Answer Entry Date Author 31.6 08/02/2025 2:25 PM EDT Misha Villavicencio RN * Percent Excess Weight Loss Answer Entry Date Author 0 08/02/2025 2:25 PM EDT Misha Villavicencio RN * Total Weight Change Percent Answer Entry Date Author 22208/02/2025 2:25 PM EDT Misha Villavicencio RN * Weight Change Since Preop Answer Entry Date Author 75.73 08/02/2025 2:25 PM EDT Misha Villavicencio RN * Initial Excess Weight Answer Entry Date Author -47.63 08/02/2025 2:25 PM EDT Misha Villavicencio RN * IBW in lbs (Bariatric) Answer Entry Date Author 105 08/02/2025 2:25 PM EDT Misha Villavicencio RN * Weight Change Since Last Visit Answer Entry Date Author 75.73 08/02/2025 2:25 PM EDT Misha Villavicencio RN * IBW in kg (Bariatric) Answer Entry Date Author 47.63 08/02/2025 2:25 PM EDT Misha Villavicencio RN * Percent of IBW Answer Entry Date Author 5,609.91 08/02/2025 2:25 PM EDT Misha Villavicencio RN * EBW (kg) Answer Entry Date Author 2,670.65 08/02/2025 2:25 PM EDT Misha Villavicencio RN * EBW (lbs) Answer Entry Date Author 2,665.44 08/02/2025 2:25 PM EDT Misha Villavicencio RN * Safety Interventions Question Answer Entry Date Author Safety Precautions/Falls Reduction assistive device/personal items within reach 08/02/2025 2:38 PM EDT Katia Wang, RN * General Emergency Care CPG Interventions Question Answer Entry Date Author Coping Interventions anticipatory guidan ce provided;education/inform ation provided 08/02/2025 2:38 PM EDT Katia Wang, RN General Care Management calm environment promoted;positioned for comfort 08/02/2025 2:38 PM EDT Katia Wang, RN * Acuity/Destination Question Answer Entry Date Author Patient Acuity 2 08/02/2025 12:02 PM EDT Ever Oneal sanitary napkin machine tender Complete Triage complete 08/02/2025 1:16 PM EDT Grady Monaco, RN * Weight Change 24 hrs Answer Entry Date Author 0 08/02/2025 2:25 PM EDT Misha Villavicencio RN * Vital Signs Question Answer Entry Date Author BP 152/120 08/02/2025 3:59 PM EDT Katia Martinez RN Temp 97.7 08/02/2025 3:59 PM EDT Katia Martinez RN Temp src Oral 08/02/2025 3:59 PM EDT Katia Martinez RN Pulse 81 08/02/2025 3:59 PM EDT Katia Hussein RN Resp 18 08/02/2025 3:59 PM EDT Katia Martinez RN Heart Rate Source Monitor 08/02/2025 3:59 PM EDT Katia Wang RN BP Location Left arm 08/02/2025 3:59 PM EDT Katia Martinez RN BP Method Automatic 08/02/2025 3:59 PM EDT Katia Martinez RN MAP (mmHg) 109 08/02/2025 2:00 PM EDT Merry Villavicencio RN Patient Position Lying 08/02/2025 3:59 PM EDT B Katia shelby RN * Oxygen Therapy Question Answer Entry Date Author SpO2 99 08/02/2025 3:59 PM EDT Katia Martinez RN O2 Flow Rate (L/min) 2 08/02/2025 3:59 PM E DT Katia Wang RN Pulse Oximetry Type Continuous 08/02/2025 3:59 PM ED T Katia Wang RN Oxygen Therapy None 08/02/2025 3:59 PM EDT Katia Ignacio RN O2 Delivery Method Nasal cannula 08/02/2025 3:59 PM ED T Katia Wang RN * BSA (Calculated - sq m) Answer Entry Date Author 1.81 08/02/2025 2:25 PM EDT Misha Villavicencio RN * BMI (Calculated) Answer Entry Date Author 31.57 08/02/2025 2:25 PM EDT Misha Villavicencio RN * Height and Weight Question Answer Entry Date Author Height 61 08/02/2025 2:25 PM EDT Merry Villavicencio RN Weight 2672 08/02/2025 2:25 PM EDT Merry Villavicencio RN * IBW/kg (Calculated) Male Answer Entry Date Author 52.3 08/02/2025 2:25 PM EDT Misha Villavicencio RN * IBW/kg (Calculated) Female Answer Entry Date Author 47.8 08/02/2025 2:25 PM EDT Misha Villavicencio RN * PAINAD (Pain Assessment in Advanced Dementia) Question Answer Entry Date Author Pain Management Interventions rest;quiet environment facilitated 08/02/2025 5:53 PM EDT Katia Wang, RN * Provider Notification Question Answer Entry Date Author Provider Role Resident 08/02/2025 3:58 PM EDT Katia Wang RN Provider Name Duncan Baker 08/02/2025 3:58 PM EDT Katia Wang, RN Method of Communication Call 08/02/20 3:58 PM EDT Katia Wang, EFE Reason for Communication Abnormal vitals ;Change in status 08/02/2025 3:58 PM EDT Katia Wang RN Response En route 08/02/2025 3:58 PM EDT Katia Wang RN Notification Time [id number] 08/02/2025 3:5 8 PM EDT Katia Wang, RN * Airway Question Answer Entry Date Author Airway (L) [facility] 08/02/2025 3:53 PM EDT Katia Martinez RN * Breathing Question Answer Entry Date Author Breathing ([facility]) [facility] 08/02/2025 3:53 PM EDT Katia Taylor RN * Circulation Question Answer Entry Date Author Circulation ([facility]) [facility] 08/02/2025 3:53 PM EDT Katia Wang RN * Disability Question Answer Entry Date Author Disability (L) [facility] 08/02/2025 3:53 PM EDT Katia Chapin RN * Restart Vitals Timer Answer Entry Date Author Yes 08/02/2025 3:59 PM EDT Katia Wang RN * Injection Rate mL/s Answer Entry Date Author 4 08/02/2025 3:29 PM EDT Dion Romero * IBW/kg (Calculated) Answer Entry Date Author 47.8 08/02/2025 2:25 PM EDT Misha Villavicencio, RN * Calculated C-SSRS Risk Score (Lifetime/Recent) Answer Entry Date Author No Risk Indicated 08/02/2025 2:15 PM EDT Katia Montgomery, EFE * Restart Pain Assessment Timer Answer Entry Date Author Yes 08/02/2025 5:53 PM EDT Katia Wang, EFE * GRACIELA 1 Fall Risk Factor Assessment Question Answer Entry Date Author Presented to ED because of fall 0 2:38 PM EDT Katia Wang, EFE Age > 70 0 08/02/2025 2:38 PM EDT Katia Martinez RN Intoxicated with alcohol or substance confusion 0 08/02/2025 2:38 PM EDT Katia Wang, EFE Ambulates or transfers with assistive devices or assist 0 08/02/2025 2:38 PM EDT Katia Wang RN Unable to ambulate or transfer 0 08/02/2025 2:38 PM EDT Katia Wang RN Nursing judgement 0 08/02/2025 2:38 PM EDT Katia Wang, EFE OWENS 1 Fall Risk Score 0 08/02/2025 2:38 PM EDT Katia Wang, EFE * [place] Suicide Severity Rating Scale Question Answer Entry Date Author Is patient awake, alert, and able to answer questions appropriately? Yes 08/02/2025 2:15 PM EDT Katia Taylor, EFE * Patient Belongings Placed in Locker Question Answer Entry Date Author Belongings at Bedside Retained by bob alves and/or family/legal direct marketing representative who assumes responsibility 08/02/2025 2:37 PM EDT Katia Wang, EFE * [employer] Information Question Answer Entry Date Author Mode of Arrival Ambulance 08/02/2025 12:00 PM EDT Ever Zavala RN * [place] Suicide Severity Rating Scale Question Answer Entry Date Author 1. Wish to be (Past 1 Month) No 025 2:15 PM EDT Katia Wang, EFE 2. Non-Specific Active Suici judy Thoughts (Past 1 Month) No 08/02/2025 2:15 PM EDT Heather Wang, RN 6. Suicidal Behavior (Lifetime) No 2:15 PM EDT Katia Wang, RN * Quick Updates Question Answer Entry Date Author Quick Updates - Free Text pt to ED 54. 08/02/2025 1:52 PM EDT Merry Villavicencio RN * Weight in (lb) to have BMI = 25 Answer Entry Date Author 132 08/02/2025 2:25 PM EDT Misha Villavicencio RN * BMI (Calculated) Answer Entry Date Author 31.6 08/02/2025 2:25 PM EDT Misha Villavicencio RN * Percent Excess Weight Loss Answer Entry Date Author 0 08/02/2025 2:25 PM EDT Misha Villavicencio RN * Weight Change Since Preop Answer Entry Date Author 75.75 08/02/2025 2:25 PM EDT Misha Villavicencio RN * Initial Excess Weight Answer Entry Date Author -47.63 08/02/2025 2:25 PM EDT Misha Villavicencio RN * IBW in kg (Bariatric) Answer Entry Date Author 47.63 08/02/2025 2:25 PM EDT Misha Villavicencio RN * IBW in lb (Bariatric) Answer Entry Date Author 105 08/02/2025 2:25 PM EDT Misha Villavicencio RN * Weight Change Since Last Visit Answer Entry Date Author 75.75 08/02/2025 2:25 PM EDT Misha Villavicencio RN * Percent of IBW Answer Entry Date Author 159.05 08/02/2025 2:25 PM EDT Misha Villavicencio RN * EBW (kg) Answer Entry Date Author 28.1 08/02/2025 2:25 PM EDT Misha Villavicencio RN * EBW (lb) Answer Entry Date Author 62 08/02/2025 2:25 PM EDT Misha Villavicencio RN * Difference in Weight Since Last Visit Answer Entry Date Author 0 08/02/2025 2:25 PM EDT Misha Villavicencio RN * Temp (in Celsius) for SUQUAMISH IV Answer Entry Date Author 36.5 08/02/2025 3:59 PM EDT Katia Wang, RN * Pain Assessment Question Answer Entry Date Author Pain Location Chest 08/02/2025 5:19 PM EDT Katia Hussein, RN Pain Orientation Left 08/02/2025 2:28 PM EDT Merry Bourgeois RN Patient's Stated Pain Goal 4 08/02/2025 2:2 8 PM EDT Merry Villavicencio RN Clinical Progression Not changed 08/02/2025 2:28 PM E DT Merry Villavicencio RN Pain Score 6 08/02/2025 5:53 PM EDT Katia Martinez RN * IBW/kg (Calculated) Answer Entry Date Author 47.8 08/02/2025 2:25 PM EDT Misha Villavicencio RN * Adult Low Range Vt 6mL/kg Answer Entry Date Author 286.8 08/02/2025 2:25 PM EDT Misha Villavicencio RN * Adult Moderate Range Vt 8mL/kg Answer Entry Date Author 382.4 08/02/2025 2:25 PM EDT Misha Villavicencio RN * Adult High Range Vt 10mL/kg Answer Entry Date Author 478 08/02/2025 2:25 PM EDT Misha Villavicencio RN * Pain Assessment Answer Entry Date Author 0-10 (Adult DVPRS/Peds 0-10) 08/02/2025 5:24 PM EDT Katia Wang RN * Cardiac Question Answer Entry Date Author Pain Descriptors Tightness 08/02/2025 3:53 PM EDT Katia Chapin RN * Vitals Timer Question Answer Entry Date Author Restart Vitals Timer Yes 08/02/2025 3:59 PM E DT Katia Wang RN * Hourly Rounding Question Answer Entry Date Author Activity Assistance Patient independent 08/02/20 25 5:53 PM EDT Katia Wang RN Repositioned Turns self 08/02/2025 5:53 PM EDT Katia Wang, RN Head of Bed Elevated HOB 30 08/02/2025 5:53 PM EDT Katia Wang, EFE Toileting Independent 08/02/2025 5:53 PM EDT Katia Wang, RN Call Light Call light present a nd within reach 08/02/2025 5:53 PM EDT Katia Wang, RN Rest/ Sleep No problem identified 08/02/2025 5:53 PM EDT Katia Wang RN Rest/ Sleep Enhancement Care clustered t o minimize awakenings 08/02/2025 2:28 PM EDT Merry Villavicencio RN Completed Hourly Rounding Yes 2024 5:53 PM EDT Katia Wang, RN Plan of Care Reviewed With Patient 08/02/2025 5:53 PM EDT Katia Wang RN documented in this encounter Discharge Instructions * Discharge Instructions* Duncan Baker MD - 08/02/2025 5:35 PM EDT You were seen emergency department for evaluation of shortness of breath and chest pain. No significant abnormalities seen. Your thyroid was a small amount low, please continue taking your syndthroidand call your primary doctor to schedule a follow up appointment. You may take tylenol for pain andplease stay very well hydrated. At this time no further emergent workup is indicated. Please returnto ED if your symptoms worsen, change in location, change in severity, new symptoms develop or if you become concerned for your health. It is important to follow-up with your primary care physician LUCINA and let them know that you were seen in the emergency department today. Thank you. documented in this encounter Medications at Time [...] spasms. 30 tablet 06/15/2025 ergocalciferol 1.25 MG (01776 UT) capsule Take 1 capsule by mouth [...] of this encounter Miscellaneous Notes * ED Provider Notes - Duncan Baker MD - 08/02/2025 11:59 AM EDT - HPI Chief Complaint Patient presents with ??? Shortness of Breath [facility] NOTE April Olvera is a 65 y.o. adult w h/o HTN, Hypothyroidism, PVD, T2DM, prior TIA who presents to the ED with SOA. Pt c/o dyspnea and intermittent chest pain since waking up this morning. Pt denies any known worsening or alleviating factors. Pt is not on home O2 but requires 2L NC in triage. Pt was given 324 Asprin by EMS en route. Pt reports she has ILR placed and per chart review it was last checked 07/12/25. Pt denies fever, chills, N/V/D, abdominal pain, headache, dizziness, and urinary symptoms. History provided by: Patient interpreter for the deaf used: No MAIN ED NOTE//Duncan Baker MD: I assumed full responsibility for this patient after transfer to Main ED from [facility]. I personally performed my own history, ROS, and physical. I agree with the above [facility] documentation with the following additions/exceptions: April Olvera is a 65 y.o. female with history of HTN, Hypothyroidism, PVD, T2DM, prior TIA presenting for shortness of breath and chest pain. Patient reports that the shortness of breath and chest pain woke up this morning around 8:00 a.m.. She called EMS who brought her here, give the room 24 mg of aspirin and placed her on 2 L by nasal cannula. She has no previous oxygen requirement. She does not the chest pain is substernal and is worse with inspiration. Stopped taking blood thinners for TIA 2 months ago. Patient History Past Medical History[1] Surgical History[2] Family History[3] Social History[4] Allergies: Allergies[5] Physical Exam ED Triage Vitals [08/02/25 1201] Temp Heart Rate Resp BP 36.7 ??C (98 ??F) 85 20 (!) 150/101 SpO2 Temp Source Heart Rate Source Patient Position 95 % Oral -- Sitting BP Location FiO2 [...] respiratory distress. Breath sounds: Normal breath sounds. No stridor. Comments: On 2L NC Abdominal: General: Abdomen is flat. Palpations: Abdomen is soft. Tenderness: There is no abdominal tenderness. Musculoskeletal: General: Normal range of motion. Cervical back: No rigidity. Skin: General: Skin is warm and dry. Neurological: Mental Status: She is alert and oriented to person, place, and time. Psychiatric: Mood and Affect: Mood normal. Behavior: Behavior normal. No data recorded ED Course & MDM - Assessment: 65 y.o. adult presents to ED with complaint of shortness of breath. It should be noted that the chronic conditions includes HTN, Hypothyroidism, PVD, T2DM, prior TIA, which currently is not at goal therapy. This complicates the clinical picture because it Comorbidities: may be exacerbating symptoms, increases the amount and complexity of data to be reviewed, complicates the clinical workup, and increases the risk for morbidity Differential Diagnosis: PE, ACS, Pneumonia, viral respiratory infection, hypothyroidism In order to fully explore the differential diagnosis the following treatments and tests were ordered: All Other Orders Ordered Status Ordering Provider 08/02/25 1202 EKG now - STAT (adult) Once Preliminary result MICHELLE JATIN JUSTICE S ED Course as of 08/02/25 2355 Mon Aug 02, 2025 1410 On initial evaluation, the patient is in no acute distress and does not appear acute ill. Patient is hemodynamically stable and vital signs are unremarkable. Physical exam as above and pertinentfor . Laboratory workup reveals normal CBC, normal CMP except for elevated glucose of 290. Lactate of 3.2. 1 L of LR being given. . ECG with NSR with ventricular rate of 86, normal intervals. No ST elevation or depression to suggest ischemia. CXR without acute findings. [BS] 1548 Free T4(!): 0.7 All other labs interpreted, only pertinent for elevated lactate of 3.2 and glucose of 290 for whicha L of fluids were given. [BS] 1548 CT Angio Pulmonary Embolism Personally interpreted by me shows no acute PE. Radiology reads in agreement and adds that there was a mild hiatal hernia. On re-evaluation the patient's pain and shortness of breath had moderately improved. We have ruled out life- threatening abnormalities. Discharged with return precautions and instructions to follow up with her primary care physician and continue taking her Synthroid. [BS] ED Course User Index [BS] Duncan Baker MD Clinical Impressions as of 08/02/25 2355 Shortness of breath Chest pain, unspecified type Social Determinates of Health Risks (including Economic Stability, Education and level of understanding, Healthcare access and quality and concerning social factors): Lives far away Ultimately, this patient was Was discharged Home (Discharge) The primary encounter diagnosis was Shortness of breath. A diagnosis of Chest pain, unspecified type was also pertinent to this visit. . Patient was counseled on the diagnoses. Discharge medications if any are listed below. Listed medications are thought be either curative for listed diagnoses or will help control ongoing symptoms. Patient is requested to follow up with Patient's Primary Care Provider in order to obtain routine follow-up. Instructions on follow up as well as precautions to return to the ER provided verbally by the EM provider, as well as written in patients discharge education packet. ED Prescriptions None - PIT Date/Time: 08/02/2025, 12:13 PM Entered by Savannah Casey acting as scribe for Jatin Marcus MD. Attending Attestation: The documentation was recorded by Savannah Casey acting as scribe in my presence at the time of the encounter and accurately reflects the service I personally performed. [1] Past Medical History: Diagnosis Date ??? Anxiety ??? Class 1 obesity ??? COVID-19 COVID-19 virus infection ??? Diabetic neuropathy ??? Diaphragmatic hernia without obstruction or gangrene 03/30/2024 ??? Former tobacco use ??? GERD (gastroesophageal reflux disease) ??? H/O renal calculi ??? Hypertension ??? Hypothyroidism ??? IBS (irritable bowel syndrome) ??? Mixed dyslipidemia ??? PVD (peripheral vascular disease) ??? Sleep apnea ??? TIA (transient ischemic attack) ??? TIA (transient ischemic attack) ??? Type 2 diabetes mellitus [2] Past Surgical History: Procedure Laterality Date ??? BLADDER SURGERY N/A stimulator ??? CARDIAC CATHETERIZATION N/A cardiac catheterization from [facility] ??? CARPAL TUNNEL RELEASE Bilateral Neuroplasty Median Nerve At Carpal Tunnel from [facility] ??? CHOLECYSTECTOMY N/A Cholecystectomy from [facility] ??? COLONOSCOPY ??? ELBOW SURGERY Right tennis elbow ??? HERNIA REPAIR 09/18/2024 ??? HYSTERECTOMY total ??? KNEE SURGERY Bilateral arthroscopy ??? LUMBAR FUSION ??? OTHER SURGICAL HISTORY loop recorder ??? SHOULDER SURGERY Right RCR ??? TOTAL THYROIDECTOMY ??? UPPER GASTROINTESTINAL ENDOSCOPY [3] Family History Problem Relation Name Age of Onset ??? Cardiac disorder Mother ??? Diabetes Mother ??? Hypertension Mother ??? Obesity Mother ??? Diabetes type II Mother ??? Hyperlipidemia Mother ??? Cardiac disorder Father ??? Diabetes Father ??? Hyperlipidemia Father ??? Cardiac disorder Brother ??? Hyperlipidemia Brother ??? Cardiac disorder Maternal Grandmother ??? Cardiac disorder Maternal Grandfather ??? Stomach cancer Maternal Grandfather ??? Hyperlipidemia Maternal Grandfather ??? Cardiac disorder Paternal Grandmother ??? Cardiac disorder Paternal Grandfather ??? Cardiac disorder Other ??? Anesthesia problems Neg Hx ??? Malig Hyperthermia Neg Hx [4] Tobacco Use ??? Smoking status: Never Passive exposure: Never ??? Smokeless tobacco: Never Vaping Use ??? Vaping status: Never Used Substance Use Topics ??? Alcohol use: Never ??? Drug use: Never Comment: Drug use: No drug use [5] Allergies Allergen Reactions ??? Cephalexin Hives, Rash and Shortness of breath ??? Codeine Anaphylaxis and Hives Can tolerate lortab ??? Erythromycin Hives, Shortness of breath and Rash ??? Penicillins Hives, Rash, Shortness of breath and Itching ??? Sulfa Drugs Rash and Shortness of breath ??? Sulfacetamide Shortness of breath, Hives and Rash ??? Morphine Itching and Hives ??? Penicillin G Hives ??? Statins Hives and Rash Elevated liver enzymes ??? Amoxicillin Rash ??? Azithromycin Rash ??? Cetirizine Rash ??? Conjugated Estrogens Other - please document in the comment field numbness BLE numbness ??? Estrogens Other - please document in the comment field numbness ??? Morphine And Codeine Other - please document in the comment field, Palpitations and Rash Heart races Duncan Baker MD Resident 08/02/25 8641 Cosigned by Sav Paulino MD at 08/08/2025 11:45 PM EST Associated attestation - Sav Paulino MD - 08/08/2025 11:45 PM EST I saw and evaluated the patient with the resident/fellow. I discussed the case with the resident/fellow and agree with the findings and plan as documented. No oxygen requirement at time of discharge.Work-up and examination reassuring. Discharged in stable condition with return precautions and follow-up instructions. * ED Triage Notes - Ever Mccoy RN - 08/02/2025 11:59 AM EDT Patient presents with SOA and chest pain since awake ing this morning, EMS gave 324 ASA and placed on 2L NC for comfort with some relief. documented in this encounter Plan of Treatment Not on file documented as of this encounter Goals Goal Patient Goal Type Associated Problems Recent Progress Patient-Stated? Author Christine serna Goal Care Plan Autogenerated Problem No Radha Duran Goal Care Plan Autogenerated Problem No Josué Chavez documented as of this encounter Procedures Procedure Name Priority Date/Time Associated Diagnosis Comments CT ANGIO PULMONARY EMBOLISM STAT 08/02/2025 3:37 PM EDT TROPONIN T, HIGH SENSITIVITY, 2 HOUR, PLASMA Timed 08/02/2025 2:27 PM EDT XR CHEST 1 VIEW STAT 08/02/2025 2:14 PM EDT TROPONIN T, HIGH SENSITIVITY, 0 HOUR, PLASMA, REFLEX TO 2 HOUR STAT 08/02/2025 12:28 PM EDT LACTATE, VENOUS STAT 08/02/2025 12:28 PM EDT N-TERMINAL PROBNP, PLASMA STAT 08/02/2025 12:28 PM EDT CBC WITH AUTO DIFFERENTIAL STAT 08/02/2025 12:28 PM EDT TSH STAT 08/02/2025 12:28 PM EDT FREE T4, PLASMA STAT Add-on 08/02/2025 12:28 PM EDT COMPREHENSIVE METABOLIC PANEL, PLASMA STAT 08/02/2025 12:28 PM EDT ECG ADULT STAT 08/02/2025 12:05 PM EDT documented in this encounter Results * CT Angio Pulmonary Embolism (08/02/2025 3:37 PM EDT) Anatomical Region Laterality Modality Chest Computed Tomogra phy Impressions 08/02/2025 4:21 PM EDT No pulmonary embolism. Moderate hiatal hernia. CRITICAL RESULT: No. COMMUNICATION: Per this written report. Drafted by Beth Lopez MD on 08/02/2025 4:08 PM Final report signed by Beth Lopez MD on 08/02/2025 4:21 PM Narrative 08/02/2025 4:21 PM EDT CLINICAL INDICATION: Dyspnea, new oxygen requirement TECHNIQUE: Imaging of the chest was performed from thoracic inlet through upper abdomen, using spiral technique, following administration of IV contrast, Omnipaque 350, 100 mL per the pulmonary angiogram protocol. In addition, 3D images were created and reviewed. TOTAL DLP (Dose-Length Product): 540.60 mGy.cm. Please note: The reported value represents the total of one or more individual components during the CT acquisition on this date and at this time, and as such, the same value may appear in more than one CT report depending on the interpreting/reporting physicians. COMPARISON: None. FINDINGS: Pulmonary Arteries/Vessels: Diagnostic opacification of the pulmonary arteries to the lobar level without pulmonary embolus. Limited evaluation of the distal pulmonary arteries especially of the upper lobes secondary to respiratory motion. Mild atherosclerotic changes of the normal caliber aorta. Right Heart Strain: No evidence of right heart strain. Pleural/Pericardial space: No pneumothorax. No pleural effusions. No pericardial effusion. Lymph Nodes: No lymphadenopathy within the chest. Lungs: Except for minimal dependent atelectasis, the lungs are clear. Mediastinum: Patient appears to be status post prior thyroidectomy. Chest wall: A loop recorder device is present within the soft tissues of the anterior left chest wall. Bones: No acute fracture within the chest. Postsurgical changes of the right humeral head. Mild multilevel degenerative changes of the spine. Upper Abdomen: Moderate hiatal hernia. Nonvisualization of the gallbladder. Procedure Note True, Beth Alvarenga MD - 08/02/2025 CLINICAL INDICATION: Dyspnea, new oxygen requirement TECHNIQUE: Imaging of the chest was performed from thoracic inlet through upperabdomen, using spiral technique, following administration of IV contrast,Omnipaque 350, 100 mL per the pulmonary angiogram protocol. In addition,3D images were created and reviewed. TOTAL DLP (Dose-Length Product): 540.60 mGy.cm. Please note: The reportedvalue represents the total of one or more individual components during theCT acquisition on this date and at this time, and as such, the same valuemay appear in more than one CT report depending on theinterpreting/reporting physicians. COMPARISON: None. FINDINGS: Pulmonary Arteries/Vessels: Diagnostic opacification of the pulmonaryarteries to the lobar level without pulmonary embolus. Limited evaluationof the distal pulmonary arteries especially of the upper lobes secondaryto respiratory motion. Mild atherosclerotic changes of the normal caliberaorta. Right Heart Strain: No evidence of right heart strain. Pleural/Pericardial space: No pneumothorax. No pleural effusions. Nopericardial effusion. Lymph Nodes: No lymphadenopathy within the chest. Lungs: Except for minimal dependent atelectasis, the lungs are clear. Mediastinum: Patient appears to be status post prior thyroidectomy. Chest wall: A loop recorder device is present within the soft tissues ofthe anterior left chest wall. Bones: No acute fracture within the chest. Postsurgical changes of theright humeral head. Mild multilevel degenerative changes of the spine. Upper Abdomen: Moderate hiatal hernia. Nonvisualization of thegallbladder. IMPRESSION: No pulmonary embolism. Moderate hiatal hernia. CRITICAL RESULT: No. COMMUNICATION: Per this written report. Drafted by Beth Lopez MD on 08/02/2025 4:08 PM Final report signed by Beth Lopez MD on 08/02/2025 4:21 PM Sav Paulino MD IMG CT PROCEDURES Final Res ult * Troponin T, High Sensitivity, 2 Hour, Plasma (08/02/2025 2:27 PM EDT) Troponin T, High Sensitivity, 2 Hour 8 <14 ng/L 08/02/2025 3:11 PM EDT [facility] Troponin Delta Interpretation Not Calculated 08/02/2025 3:11 PM EDT [facility] Comment:Specimen not collect ed within acceptable timeframe. Delta will not be calculated. Blood Venous blood specimen / Unknown Venipuncture / Unknown 08/02/2025 2:27 PM EDT 08/02/2025 2:37 PM EDT Jatin Matos MD LAB BLOOD ORDERABLES Final Result [facility] [address] [place] [address] * XR Chest 1 View (08/02/2025 2:14 PM EDT) Anatomical Region Laterality Modality Chest Digital Radiogra phy Impressions 08/02/2025 2:38 PM EDT No acute radiographic findings. CRITICAL RESULT: No. COMMUNICATION: Per this written report. By electronically signing this report, I, the attending physician, attest that I have personally reviewed the images/data for the above examination(s) and agree with the final edited report. Drafted by Pat Jones MD on 08/02/2025 2:25 PM Final report signed by Srinivasa Kurtz MD on 08/02/2025 2:38 PM Narrative 08/02/2025 2:38 PM EDT CLINICAL INDICATION: SOA TECHNIQUE: XR CHEST 1 VIEW COMPARISON: Chest radiograph 01/24/2024 FINDINGS: No air space disease. No pleural effusions or pneumothorax. Stable cardiac silhouette and mediastinal contours. No acute osseous abnormality. Surgical quintin overlying the lower neck. No free subdiaphragmatic gas. No acute osseous findings. Procedure Note Srinivasa Kurtz MD - 08/02/2025 CLINICAL INDICATION: SOA TECHNIQUE: XR CHEST 1 VIEW COMPARISON: Chest radiograph 01/24/2024 FINDINGS: No air space disease. No pleural effusions or pneumothorax. Stable cardiacsilhouette and mediastinal contours. No acute osseous abnormality.Surgical quintin overlying the lower neck. No free subdiaphragmatic gas.No acute osseous findings. IMPRESSION: No acute radiographic findings. CRITICAL RESULT: No. COMMUNICATION: Per this written report. By electronically signing this report, I, the attending physician, attestthat I have personally reviewed the images/data for the aboveexamination(s) and agree with the final edited report. Drafted by Pat Jones MD on 08/02/2025 2:25 PM Final report signed by Srinivasa Kurtz MD on 08/02/2025 2:38 PM us Jatin Matos MD IMG XR PROCEDURES Fin al Result * (ABNORMAL) T4, free (08/02/2025 12:28 PM EDT) [facility] Free T4, Plasma 0.7(L) 0.8 - 1.7 ng/dL 08/02/2025 2:58 PM EDT [facility] Blood Venous blood specimen / Unknown Venipuncture / Unknown 08/02/2025 12:28 PM EDT 08/02/2025 12:31 PM EDT us Sav Paulino MD LAB BLOOD ORDERABLES Final Result [facility] [address] [place] [address] * BNP (08/02/2025 12:28 PM EDT) Pathologist [facility] N-Terminal, PROBNP, Plasma <50 0 - 899 pg/mL 08/02/2025 1:10 PM EDT [facility] Blood Venous blood specimen / Unknown Venipuncture / Unknown 08/02/2025 12:28 PM EDT 08/02/2025 12:31 PM EDT us Jatin Matos MD LAB BLOOD ORDERABLES Final Result Performing Organization Address City/[facility]/ZIP Co de Phone Number [facility] [address] [place] [address] * (ABNORMAL) TSH (08/02/2025 12:28 PM EDT) Thyroid Stimulating Hormone, Plasma 17.12(H) 0.40 - 4.20 uIU/mL 08/02/2025 1:10 PM EDT [facility] Blood Venous blood specimen / Unknown Venipuncture / Unknown 08/02/2025 12:28 PM EDT 08/02/2025 12:31 PM EDT us Jatin Matos MD LAB BLOOD ORDERABLES Final Result Performing Organization Address City/[facility]/ZIP Co de Phone Number [facility] [address] [place] [address] * (ABNORMAL) Lactic acid, venous (08/02/2025 12:28 PM EDT) Pathologist [facility] Lactate, Venous, Whole Blood 3.2(H) 0.5 - 2.2 mmol/L LAB HEMATOLOGY METHOD 08/02/2025 12:34 PM EDT [facility] Blood Venous blood specimen / Unknown Venipuncture / Unknown 08/02/2025 12:28 PM EDT 08/02/2025 12:34 PM EDT us Jatin Matos MD LAB BLOOD ORDERABLES Final Result Performing Organization Address City/[facility]/ZIP Co de Phone Number [facility] [address] [place] [address] * (ABNORMAL) CBC w/diff (08/02/2025 12:28 PM EDT) WBC Count 5.86 3.70 - 10.30 10*3/uL LAB HEMATOLOGY METHOD 08/02/2025 12:36 PM EDT [facility] RBC Count 4.88 3.90 - 5.20 10*6/uL LAB HEMATOLOGY METHOD 08/02/2025 12:36 PM EDT [facility] HGB 14.2 11.2 - 15.7 g/dL LAB HEMATOLOGY METHOD 08/02/2025 12:36 PM EDT [facility] HCT 43.2 34.0 - 45.0 % LAB HEMATOLOGY METHOD 08/02/2025 12:36 PM EDT [facility] Platelet Count 175 155 - 369 10*3/uL LAB HEMATOLOGY METHOD 08/02/2025 12:36 PM EDT [facility] MCV 89 79 - 98 fL LAB HEMATOLOGY METHOD 08/02/2025 12:36 PM EDT [facility] MCH 29.1 26.0 - 32.0 pg LAB HEMATOLOGY METHOD 08/02/2025 12:36 PM EDT [facility] MCHC 32.9 30.7 - 35.5 g/dL LAB HEMATOLOGY METHOD 08/02/2025 12:36 PM EDT [facility] RDW 13.2 11.5 - 14.5 % LAB HEMATOLOGY METHOD 08/02/2025 12:36 PM EDT [facility] MPV 10.0 8.8 - 12.5 fL LAB HEMATOLOGY METHOD 08/02/2025 12:36 PM EDT [facility] nRBC 0.0 <=0.0 per 100 WBCs LAB HEMATOLOGY METHOD 08/02/2025 12:36 PM EDT [facility] Differential Type Automated LAB HEMATOLOGY METHOD 08/02/2025 12:36 PM EDT [facility] Neutrophils % 62 % LAB HEMATOLOGY METHOD 08/02/2025 12:36 PM EDT [facility] Lymphocytes % 29 % LAB HEMATOLOGY METHOD 08/02/2025 12:36 PM EDT [facility] Monocytes % 5 % LAB HEMATOLOGY METHOD 08/02/2025 12:36 PM EDT [facility] Eosinophils % 2 % LAB HEMATOLOGY METHOD 08/02/2025 12:36 PM EDT [facility] Basophils % 1 % LAB HEMATOLOGY METHOD 08/02/2025 12:36 PM EDT [facility] Immature Granulocytes % 1 % LAB HEMATOLOGY METHOD 08/02/2025 12:36 PM EDT [facility] Neutrophils Absolute 3.73 1.60 - 6.10 10*3/uL LAB HEMATOLOGY METHOD 08/02/2025 12:36 PM EDT [facility] Lymphocytes Absolute 1.69 1.20 - 3.90 10*3/uL LAB HEMATOLOGY METHOD 08/02/2025 12:36 PM EDT [facility] Monocytes Absolute 0.27(L) 0.30 - 0.90 10*3/uL LAB HEMATOLOGY METHOD 08/02/2025 12:36 PM EDT [facility] Eosinophils Absolute 0.09 0.00 - 0.50 10*3/uL LAB HEMATOLOGY METHOD 08/02/2025 12:36 PM EDT [facility] Basophils Absolute 0.04 0.00 - 0.10 10*3/uL LAB HEMATOLOGY METHOD 08/02/2025 12:36 PM EDT [facility] Immature Granulocytes Absolute 0.04 0.00 - 0.06 10*3/uL LAB HEMATOLOGY METHOD 08/02/2025 12:36 PM EDT [facility] Blood Venous blood specimen / Unknown Venipuncture / Unknown 08/02/2025 12:28 PM EDT 08/02/2025 12:31 PM EDT Narrative [facility] - 08/02/2025 12:36 PM EDT Therapeutic decision making should be based on absolute values, rather than percentages. us Jatin Matos MD LAB BLOOD ORDERABLES Final Result [facility] [address] [place] [address] * Troponin now and 120 min (08/02/2025 12:28 PM EDT) Troponin T, High Sensitivity, 0 Hour 9 <14 ng/L 08/02/2025 1:10 PM EDT [facility] Blood Venous blood specimen / Unknown Venipuncture / Unknown 08/02/2025 12:28 PM EDT 08/02/2025 12:31 PM EDT us Jatin Matos MD LAB BLOOD ORDERABLES Final Result [facility] [address] [place] [address] * (ABNORMAL) CMP (08/02/2025 12:28 PM EDT) Glucose, Plasma 290(H) 74 - 99 mg/dL 08/02/2025 1:10 PM EDT [facility] BUN, Plasma 16 8 - 23 mg/dL 08/02/2025 1:10 PM EDT [facility] Creatinine, Plasma 0.68 0.60 - 1.10 mg/dL 08/02/2025 1:10 PM EDT [facility] BUN/Creatinine Ratio 24 08/02/2025 1:10 PM EDT [facility] Sodium, Plasma 140 136 - 145 mmol/L 08/02/2025 1:10 PM EDT [facility] Potassium, Plasma 4.7 3.6 - 4.9 mmol/L 08/02/2025 1:10 PM EDT [facility] Chloride, Plasma 99 97 - 107 mmol/L 08/02/2025 1:10 PM EDT [facility] CO2, Plasma 27 22 - 29 mmol/L 08/02/2025 1:10 PM EDT [facility] Anion Gap 14 6 - 16 mmol/L 08/02/2025 1:10 PM EDT [facility] Total Calcium, Plasma 9.9 8.9 - 10.2 mg/dL 08/02/2025 1:10 PM EDT [facility] Total Protein 7.2 6.3 - 7.9 g/dL 08/02/2025 1:10 PM EDT [facility] Albumin, Plasma 4.5 3.5 - 5.2 g/dL 08/02/2025 1:10 PM EDT [facility] AST, Plasma 29 10 - 35 U/L 08/02/2025 1:10 PM EDT [facility] Comment:Hemolyzed, result ma y be falsely increased. ALT, Plasma 31 10 - 35 U/L 08/02/2025 1:10 PM EDT [facility] Alkaline Phosphatase, Plasma 102 46 - 142 U/L 08/02/2025 1:10 PM EDT [facility] Total Bilirubin, Plasma 0.4 0.2 - 1.1 mg/dL 08/02/2025 1:10 PM EDT [facility] eGFRcr 95.6 mL/min/1.7 3m*2 08/02/2025 1:10 PM EDT [facility] Comment:Reported eGFRcr in m L/min/1.73m2 is based the CKD-EPI 2020 equation that does not use a race coefficient. Blood Venous blood specimen / Unknown Venipuncture / Unknown 08/02/2025 12:28 PM EDT 08/02/2025 12:31 PM EDT us Jatin Matos MD LAB BLOOD ORDERABLES Final Result Performing Organization Address City/[facility]/ZIP Co de Phone Number [facility] [address] [place] [address] * EKG now - STAT (adult) (08/02/2025 12:05 PM EDT) EKG DIAGNOSIS CLASS Abnormal MUSE ECG Ventricular Rate 86 BPM MUSE ECG Atrial Rate 86 BPM MUSE ECG NC Interval 136 ms MUSE ECG QRSD Interval 86 ms MUSE ECG QT Interval 402 ms MUSE ECG QTC Interval 481 ms MUSE ECG P [place] 52 degrees MUSE ECG R [place] -6 degrees MUSE ECG T Wave [place] 11 degrees MUSE ECG Diagnosis Normal sinus rhythm MUSE ECG Diagnosis Poor R-wave progression MUSE ECG Diagnosis Nonspecific T wave abnormality MUSE ECG Diagnosis Abnormal ECG MUSE ECG Diagnosis MUSE ECG Diagnosis Confirmed by Reji Osborn ([id number]) on 08/02/2025 12:21:05 PM MUSE ECG 08/02/2025 12:0 5 PM EDT 08/02/2025 12:21 PM EDT us Jatin Matos MD ECG ORDERABLES Final Result MUSE ECG documented in this encounter Visit Diagnoses Diagnosis Shortness of breath- Primary Chest pain, unspecified type documented in this encounter Administered Medications Inactive Administered Medications - up to 3 most recent administrations Medication Order MAR Action Action Date Dose Rate Site acetaminophen (Tylenol) tablet 1,000 mg 1,000 mg, Oral, Once, 1 dose, On 08/02/25 at 1720, Routine Given 08/02/2025 5:24 PM EDT 1,000 mg HYDROmorphone (Dilaudid) injection 0.5 mg 0.5 mg, Intravenous, Once, 1 dose, On Sat08/02/25 at 1610, STAT Given 08/02/2025 4:24 PM EDT 0.5 mg iohexol (OMNIPaque) 350 MG/ML injection 100 mL 100 mL, Intravenous, Once in imaging, 1 dose, Starting on Sat08/02/25 at 1442, Until Sat08/02/25 at 1529, Routine, Imaging Protocol Orders Given 08/02/2025 3:29 PM EDT 80 mL lactated Ringer's infusion 1,000 mL 1,000 mL, Intravenous, Once, 1 dose, On Sat08/02/25 at 1415, STAT New Bag 08/02/2025 2:30 PM EDT 1,000 mL documented in this encounter Active and Recently Administered Medications Times are shown in EDT. Scheduled Medication Order 07/31/2025 08/01/2025 08/02/2025 acetaminophen (Tylenol) tablet 1,000 mg (COMPLETED) 1,000 mg, Oral, Once, 1 dose, On Sat08/02/25 at 1720, Routine 1724 (Given - Provid er: Katia Wang RN) HYDROmorphone (Dilaudid) injection 0.5 mg (COMPLETED) 0.5 mg, Intravenous, Once, 1 dose, On Sat08/02/25 at 1610, STAT 1624 (Given - Provid er: Katia Wang RN) iohexol (OMNIPaque) 350 MG/ML injection 100 mL (COMPLETED) 100 mL, Intravenous, Once in imaging, 1 dose, Starting on Sat08/02/25 at 1442, Until Sat08/02/25 at 1529, Routine, Imaging Protocol Orders 1529 (Given - Provid er: Ian Romero) lactated Ringer's infusion 1,000 mL (COMPLETED) 1,000 mL, Intravenous, Once, 1 dose, On Sat08/02/25 at 1415, STAT 1430 (New Bag - Prov ider: Katia Wang, EFE)1325 (Stopped - Provider: Merry Villavicencio RN) documented in this encounter Additional Health Concerns Active Problems Noted Date Diagnosed Date Autogenerated Problem 05/10/2025 Autogenerated Problem 05/05/2025 Assessment Noted Time A fall risk assessment has been complete d for the patient 07/21/2025 11:06 AM EDT A Body Mass Index follow-up plan has been documented for the patient 07/25/2025 5:10 PM EDT documented as of this encounter Care Teams Balloon Design Printer Relationship Specialty Start Date End Date Meli Gallardo APRN [id number] PCP - General 02/17/21 Tito uSe MD [address] [place] [address] Surgeon Neurosurgery 07/21/25 documented as of this encounter
--- OUTSIDE RECORDS SUMMARY | 2025-08-12 16:19 | XMS_ITS | Encounter Summary ---
Author Organization Healthcare Address [address] [place] [address] Care Team Providers Care Show Host/Hostess Name Role Phone GallardoMeli barnett MIGUEL ANGEL Primary Care Provider [phone] Tito Sue MD Unavailable [phone] Encounter Details Date Type Department Care Team (Latest Contact Info) Description 08/12/2025 4:19 PM EST - 08/12/2025 11:59 PM EST Hospital Encounter Cardiac Imaging [address] [place] [address] History of loop recorder Discharge Disposition: Home [...] often do you attend chur ch or yarsanism services? Never 10/02/2024 Do you belong to any clubs o r organizations such as gnosticism groups, unions, fraternal or athletic groups, or [...] Recorded Patient Health Questionnaire-2 Score 0 02/24/2024 [facility] - Occupational Stress Questionnaire Answer Date Recorded [...] any time in the past 12 m [facility], were you homeless or living in a skilled nursing (including now)? 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 30 tablet 06/15/2025 ergocalciferol 1.25 MG (19124 UT) capsule Take 1 capsule by mouth [...] from the original result were not included. [facility] - [facility] Remote CIED Report Name: April Olvera Date: 08/13/2025 : 1960 Age: 65 y.o. Reporting period: Reporting period is the last 31 days, with at least 10 days of remote monitoring. Interim reports, if any, reviewed and addressed previously; see remote alert entries for more details. Device: Order Entry Specialist: [employer] implantable deputy register of deeds (ICM) Battery: Status: Evaluation: Presenting rhythm: sinus [...] documented as of this encounter Care Teams Show Host/Hostess Relationship Specialty Start Date End Date Meli Gallardo APRN [id number] PCP - General 02/17/21 Tito Sue MD [address] [place] [address] Surgeon Neurosurgery 07/21/25 documented as of this encounter
--- OUTSIDE RECORDS SUMMARY | 2025-09-15 13:10 | XMS_ITS | Encounter Summary ---
Author Organization Healthcare Address [address] [place] [address] Care Team Providers Care Bicycle I Assembler Name Role Phone GallardoMeli barnett MIGUEL ANGEL Primary Care Provider [phone] Tito Sue MD Unavailable [phone] Encounter Details Date Type Department Care Team (Latest Contact Info) Description 09/15/2025 1:10 PM EST - 09/15/2025 11:59 PM EST Hospital Encounter Cardiac Imaging [address] [place] [address] History of loop recorder Discharge Disposition: Home [...] often do you attend chur ch or lutheran services? Never 10/02/2024 Do you belong to any clubs o r organizations such as yazidism groups, unions, fraternal or athletic groups, or [...] Health Questionnaire-2 Score 0 02/24/2024 [facility] - Occupational Stress Questionnaire Answer [...] any time in the past 12 m [facility], were you homeless or living in a senior care (including now)? No 05/18/2025 CAGE ASSESSMENT Answer [...] drink first t allison in the morning (EYE-DECALER) to steady your nerves or to get [...] spasms. 30 tablet 06/15/2025 ergocalciferol 1.25 MG (07097 UT) capsule Take 1 capsule by mouth [...] documented as of this encounter Care Teams Bicycle I Assembler Relationship Specialty Start Date End Date Meli Gallardo APRN [id number] PCP - General 02/17/21 Tito Sue MD [address] [place] [address] Surgeon Neurosurgery 07/21/25 documented as of this encounter
--- NOTE | 2025-10-01 19:41 | ECG_ITS ---
APPROVED REPORT Exam: Resting ECG HR:97 bpm ECG Measurements Heart Rate 97 AXES VA 135 P 44 QRSd 93 QRS -3 QT 345 T 3 QTc 399 Conclusion SINUS RHYTHM NORMAL ECG UNCONFIRMED REPORT Electronically signed by : Derek River, 10/01/2025 23:47:03
[2025-10-01 19:43] VITALS: BP 173/96; PULSE 99; RESP 18; TEMP 38.6; O2SAT 93; BMI 32.5
[2025-10-01 19:51] VITALS: TEMP 36.9
[2025-10-01 19:56] LABS: Hematocrit 36.4 % (37.0-47.0); Hemoglobin 12.2 g/dL (12.2-16.2); Immature Granulocytes % 0.3 %; Mean Corpuscular HGB Conc 33.5 g/dL (31.8-35.4); Mean Corpuscular Hemoglobin 29.0 pg (27.0-31.2); Mean Corpuscular Volume 86.5 fl (81-99); Nucleated Red Blood Cells % 0 %; Platelet Count 155 K/mm3 (142-424); Red Blood Count 4.21 M/mm3 (4.20-5.40); Red Cell Distribution Width-SD 41.1 fL; White Blood Count 6.4 K/mm3 (4.8-10.8)
[2025-10-01 20:00] VITALS: BP 142/89; PULSE 93; RESP 15; O2SAT 95
[2025-10-01 20:02] LABS: Alanine Aminotransferase 29 U/L (12-78); Albumin Level 4.3 g/dl (3.5-5.0); Albumin/Globulin Ratio 1.5 (1.1-1.8); Alkaline Phosphatase 74 U/L (38-126); Anion Gap 12.7 mEq/L (5-15); Aspartate Amino Transferase 28 U/L (14-36); Bilirubin,Total 1.0 mg/dl (0.2-1.3); Blood Urea Nitrogen 8 mg/dl (7-17); Calcium 9.2 mg/dl (8.4-10.2); Carbon Dioxide 27 mmol/L (22.0-30.0); Chloride 101 mmol/L (98-107); Creatinine Clearance Estimated 67 mL/min (50-200); Creatinine,Serum 0.60 mg/dl (0.52-1.04); Estimated Glomerular Filt Rate 100 ml/min (>60); GFR (African American) 121 ML/MIN (>60); Globulin 2.9 g/dL (1.3-3.2); Glucose 260 mg/dl (74-100); Potassium 3.7 mmoL/L (3.5-5.1); Sodium 137 mmol/L (136-145); Total Protein,Serum 7.2 g/dl (6.3-8.2)
[2025-10-01] MEDS: ACETAMINOPHEN 500MG TAB 1000 MG PO (20:02)
--- OUTSIDE RECORDS SUMMARY | 2025-10-01 20:13 | XMS_ITS | Clinical Summary ---
Author Organization [facility] , [facility] Address [address] [place] [address] Phone Care Team Providers Care Ladler Name Role Phone Meli Gallardo APRN Unavailable [phone] Roselyn MCKEON, Tyler Yadav Unavailable [phone] Reason for Referral 07/11/2022 Encounter for Physician Specified Date Recorded Target Due Date Referral Type Referring Prov ider Reason For Referral 07/11/2022 Tyler boyd MD referral to physician Last Documented On 2 10:11AM ; [facility], [facility] Reason for Visit and Chief Complaint The Chief Complaint is: Right Knee Pain Problems Includes: Problems addressed during this encounter and other active Problems Current Visit Onset Date Date of Diagnosis Resolved Date Provider Condition Status Joint Pain Knee 07/11/2022 07/11/2022 Tyler Dempsey MD Active Last Documented On 5 1:41AM ; [facility], [facility] Plan of Treatment Pending Tests Order Diagnosis Results Due Ordering Leif khan Radiology - CT Scan Knee 07/25/22 Tyler Dempsey MD Last Documented On 2 10:33AM ; [facility], [facility] Instructions to patient Lose weight Last Documented On 2 10:11AM ; [facility], [facility] Assessments Includes: Assessments from this encounter Findings 62 year old here for initial visit for pain in the right knee, she reports that this knee has been hurting for about one year. SHe reports a history of arthroscopic debridement on this knee with Colmenares cyst removal about 10 year ago. She states that pain gets worse with increase in activity or with walking. She reports that she has had cortisone injections in this knee with no prolonged symptom relief with the last one being about 1 month ago. Xrays that are ordered and reviewed by me today show a well preserved knee with a good amount of joint space. she has done physical therapy. She reports that she completed about 6 months ago and this did also do not give her significant improvement. She notes sharp stabbing pain along the medial and lateral joint line with some intermittent catching. - Last Documented On 07/11/2022 10:33AM ; [facility], [facility] PHYSICAL EXAM - Last Documented On 07/11/2022 10:33AM ; [facility], [facility] CONSTITUTIONAL: Well developed, well groomed, well nourished patient in no acute distress who appears stated age, height and weight. - Last Documented On 07/11/2022 10:33AM ; [facility] PSYCHIATRIC: The patient is alert and oriented to person, place, date and situation. Mood and affect are normal for current situation. - Last Documented On 07/11/2022 10:33AM ; [facility] NEUROLOGICAL: Sensation normal bilateral upper and lower extremities. - Last Documented On 07/11/2022 10:33AM ; [facility] LYMPHATIC: No pitting edema noted in the lower extremities. - Last Documented On 07/11/2022 10:33AM ; [facility] SKIN: No lesions noted on upper or lower extremities. Skin is dry, warm and with normal turgor. - Last Documented On 07/11/2022 10:33AM ; [facility] VASCULAR: No swelling in upper or lower extremities other than described below in extremity exam. Dorsalis Pedis Pulses normal in lower extremities. - Last Documented On 07/11/2022 10:33AM ; [facility] GAIT AND STATION: Normal gait without assistive devices. Station normal. - Last Documented On 07/11/2022 10:33AM ; [facility] LEFT KNEE: No Deformity. Normal Q angle. No discoloration. No Atrophy. No tenderness to palpation. No crepitation. No effusion. Active Range of Motion: Extension 0 degrees, Flexion 135 degrees. Passive Range of Motion: not limited. Strength: 5/5 quadriceps. 5/5 Hamstrings. Negative Filipe's. Negative posterior drawer. Negative valgus instability. Negative varus instability. Negative Medial McMurrays. Negative Lateral McMurrays. Normal patella mobility. Negative patella apprehension. - Last Documented On 07/11/2022 10:33AM ; [facility], [facility] RIGHT KNEE: No Deformity. Normal Q angle. No discoloration. No Atrophy. tenderness to palpation on medial and lateral joint line . No crepitation. No effusion. Active Range of Motion: Extension 0 degrees, Flexion 130 degrees. Passive Range of Motion: not limited. Strength: 5/5 quadriceps. 5/5 Hamstrings. Negative Filipe's. Negative posterior drawer. Negative valgus instability. Negative varus instability. positive Medial McMurrays. positive Lateral McMurrays. Normal patella mobility. Negative patella apprehension. - Last Documented On 07/11/2022 10:33AM ; [facility], [facility] ASSESSMENT AND PLAN - Last Documented On 07/11/2022 10:33AM ; [facility], [facility] Patient here today for initial visit with me for pain in the right knee. She has a history of a knee Arthroscopy for debridement to clean out a backer cyst 10 years ago. She comes today after having 3 separate cortisone injections over 9 months with ongoing symptoms. she is also failed physical therapy. Xrays today show no significant arthritic findings. I would like to proceed with a CT arthrogram for further review of of the meniscus as she dose have positive testing on the meniscus i will not be able to get the MRI as she has a stimulator in her back. I will order the scan today and follow up after for further treatment plans. we will have to pay close attention to if there is any evidence of more degenerative type changes that may not be as well improved with the debridement. - Last Documented On 07/11/2022 10:33AM ; [facility], [facility] Instructions Includes: Instructions from this encounter Instructions to patient Lose weight Last Documented On 10:11AM ; [facility] Medical Equipment - Implanted Devices Includes: Current Devices No Medical Equipment Recorded Medications Includes: Medications discussed during this encounter and other current Medications Current Medications (continue as prescribed) Carvedilol 25 MG Oral Tablet 07/11/2022 Provider: Diagnosis: Last Documented On 2 9:51AM By Arleen Carias ; [facility], [facility] HumaLOG Mix 75/25 KwikPen (7 5-25) 100 UNIT/ML Subcutaneous Suspension Pen-injector 07/09/2022 Provider: Israel Gallardo APRN Diagnosis: Last Documented On 2 9:51AM By Arleen Carias ; [facility], [facility] Clopidogrel Bisulfate 75 MG Oral Tablet 07/04/2022 P rovider: FRANCISCO JOSEPH MD Diagnosis: Last Documented On 2 9:51AM By Arleen Carias ; [facility], [facility] Fluticasone Propionate 50 MC G/ACT Nasal Suspension 07/04/2022 Provider: Meli Gallardo APRN Diagnosis: Last Documented On 2 9:51AM By Arleen Carias ; [facility], [facility] busPIRone HCl 10 MG Oral Tablet 06/26/2022 Provider: Meli Gallardo APRN Diagnosis: Last Documented On 2 9:51AM By Arleen Carias ; [facility], [facility] Citalopram Hydrobromide 40 MG Oral Tablet 05/25/2022 Provider: Meli Gallardo APRN Diagnosis: Last Documented On 2 9:51AM By Arleen Carias ; [facility], [facility] Jardiance 25 MG Oral Tablet 05/15/2022 Provider: Meli Gallardo APRN Diagnosis: Last Documented On 2 9:51AM By Arleen Carias ; [facility], [facility] amLODIPine Besylate 10 MG Oral Tablet 04/12/2022 Pro vider: FRANCISCO JOSEPH MD Diagnosis: Last Documented On 2 9:51AM By Arleen Carias ; [facility], [facility] Past Medications on file oxyCODONE HCl 5 MG Oral Tablet 08/20/2022 - 08/22/2022 Provider: Tyler Dempsey MD Diagnosis: 1-2 p o q 6-8h Last Documented On 2 7:40AM By Tyler Dempsey M.D. ; [facility] Ondansetron HCl 4 MG Oral Tablet 08/20/2022 - 09/01/2022 Provider: Tyler Dempsey MD Diagnosis: 1 po q 6h prn nausea Last Documented On 2 7:40AM By Tyler Dempsey M.D. ; [facility] Adult Aspirin Regimen 81 MG Oral Tablet Delayed Release 08/20/2022 - 09/03/2022 Provider: Tyler Madera MD Diagnosis: once a day Last Documented On 2 7:40AM By Tyler Dempsey M.D. ; [facility] Medications Administered Includes: Administered Medications from this encounter No Administered Medications Recorded Vital Signs Includes: Vital Signs from this encounter Vital Name 07/11/2022 10:09A Blood Pressure Sitting (mmHg) 132/81 Pulse Rate-Sitting (bpm) 72 Height (in) 61 Weight (lb) 182 Body Mass Index (kg/m2) 34.4 Body Surface Area (m2) 1.8 Note: snb Last Documented: On 07/11/2022 10:10A M ; [facility] Results Includes: Results discussed during this encounter No Results Recorded For Specified Dates History of Present Illness Includes: History of Present Illness from this encounter SILVIA OLVERA is a 62 year old female. - Allergy list reviewed - Problem list reviewed - Medication list reviewed - Previous history of new onset pain 2020 - Sharp pain Symptoms - Stabbing - Patient pain level from 1-10: 7 - Yes, previous treatment. - History of Physical Therapy Social History Description Last Updated Tobacco non-user 07/11/2022 Last Documented On 2 10:33AM ; [facility] No caffeine use 07/11/2022 Last Documented On 2 10:33AM ; [facility] No recent change in diet 07/11/2022 Last Documented On 2 10:33AM ; [facility] Not a current smoker. 07/11/2022 Last Documented On 2 10:33AM ; [facility] Not exercising regularly 07/11/2022 Last Documented On 2 10:33AM ; [facility] Not using alcohol 07/11/2022 Last Documented On 2 10:33AM ; [facility] Not using drugs 07/11/2022 Last Documented On 2 10:33AM ; [facility] Sex - Female 09/13/2022 Last Documented On 2 4:34PM ; [facility] Smoking Status Unknown Procedures and Surgical History Includes: Procedures from this encounter Procedures Code Diagnosis Performing Provider Service L ocation Service Date use of tobacco assessment performed 1000F Last Documented On 2 10:11AM ; [facility] follow-up visit in one month Last Documented On 10:11AM ; [facility] referral to physician Last Documented On 10:11AM ; [facility] an X-ray was performed 06257 Last Documented On 2 9:52AM ; [facility] Surgical History Last Updated History of back surgery 07/11/2022 Last Documented On 2 10:33AM ; [facility] History of History of Gallbladder 2021 Last Documented On 2 10:33AM ; [facility] History of hysterectomy 07/11/2022 Last Documented On 2 10:33AM ; [facility] History of shoulder arthroplasty 022 Last Documented On 2 10:33AM ; [facility] Medical History Includes: Medical History addressed during this encounter Description Last Updated History of arthritis 07/11/2022 Last Documented On 2 10:33AM ; [facility] History of diabetes mellitus 07/11/2022 Last Documented On 2 10:33AM ; [facility] History of Heartburn / Acid Reflux 07/11 Last Documented On 2 10:33AM ; [facility] History of History of Heart Attack / Str jacob 07/11/2022 Last Documented On 2 10:33AM ; [facility] History of Hypertension 07/11/2022 Last Documented On 2 10:33AM ; [facility], [facility] History of Thyroid Disease 07/11/2022 Last Documented On 2 10:33AM ; [facility], [facility] Recent immunization for flu 07/06/2022 Last Documented On 2 10:33AM ; [facility], [facility] Recent immunization for pneumococcal pne 201907/11/2022 Last Documented On 2 10:33AM ; [facility], [facility] Family History Includes: Family History addressed during this encounter Description Last Updated Diabetes mellitus 07/11/2022 Last Documented On 2 10:33AM ; [facility], [facility] Family history of cancer 07/11/2022 Last Documented On 2 10:33AM ; [facility], [facility] Family history of heart disease 07/11/20 Last Documented On 2 10:33AM ; [facility], [facility] Family history of systemic hypertension 07/11/2022 Last Documented On 2 10:33AM ; [facility], [facility] Review of Systems Includes: Review of Systems from this encounter Systemic: Not feeling tired, no recent weight loss, and no recent weight gain. Head: No headache and no sinus pain. Eyes: No vision problems, no Cataracts, no Glasses/Contacts, and no Glaucoma. Otolaryngeal: No hearing loss and no tinnitus. Cardiovascular: No chest pain or discomfort and no palpitations. Hypertension and High Cholesterol. Pulmonary: No daytime asthma symptoms and no chronic cough. No wheezing. Gastrointestinal: No heartburn and no abdominal pain. No Indigestion. Acid Reflux. No Peptic Ulcer, no GI Stomach Bleed, and no Ulcers. Endocrine: No hot flashes and no muscle weakness. Diabetes and Hypothyroid. No Hyperthyroid. Hematologic: No easy bleeding. A tendency for easy bruising. No Anemia. Musculoskeletal: Arthritis and lower back pain. No soft tissue swelling. Pain localized to one or more joints. Neurological: No dizziness, no convulsions, and no numbness. Psychological: Anxiety. No emotional lability, no depression, and no insomnia. Not crying for no reason. Skin: No dry skin. No Ulcers, no Scars, and no rash. Allergic and Immunologic: Complaint of seasonal allergic reaction. Mental Status Includes: Mental Status from this encounter Description Anxiety Last Documented On 2 9:55AM ; [facility], [facility] Physical Exam Includes: Physical Exam from this encounter Allergies Includes: Active Allergies Substance Type Reaction Onset Date Resolved Date Statu s Sulfac Allergy 08/31/2008 Active Last Documented On 2 7:59AM ; [facility], [facility] Penicillins Allergy 08/31/2008 Active Last Documented On 2 7:59AM ; [facility] Morphine Derivatives Allergy 08/31/2008 Active Last Documented On 2 7:59AM ; [facility] Keflex Allergy 08/31/2008 Active Last Documented On 2 7:59AM ; [facility] Erythromycin Allergy 08/31/2008 Active Last Documented On 2 7:59AM ; [facility] Codeine Phosphate Allergy 08/31/2008 A ctive Last Documented On 2 7:59AM ; [facility] Care Ladler Name (Identifier) Role/Relation Location/Telecom Last Documented By Meli Gallardo APRN ([id number]) [address] [place] [address], [place], [address] tel: Last Documented On 07/11/2022 10:08AM ; [facility] Tyler Dempsey MD ([id number]) Assigned practitioner (occupation) [address] [place] [address], [place], [address] tel: Last Documented On 09/13/2022 4:34PM ; [facility] Encounters Encounter Provider Location (Healthcare Service Location) Date Check-In Time Check-Out Time Diagnosis Encounter Disposition Physician Specified Tyler Dempsey MD [facility] 2021 8:55AM 10:30AM Payer Includes: Active Insurance Policies Plan Name (Payer ID) Coverage Type Member ID Group # Subscriber (ID) Relationship Effective Dates 1 - [facility] ([id number]) [id number] GABE OLVERA Self 10/07/2019 - Unknown Last Documented On 2 8:43AM ; [facility]
[2025-10-01 20:14] LABS: NT Pro Brain Natriuretic Pep. 120 pg/mL (0-125)
--- OUTSIDE RECORDS SUMMARY | 2025-10-01 20:14 | XMS_ITS | Encounter Summary ---
Author Organization Healthcare Address [address] [place] [address] Care Team Providers Care Superintendent Container Terminal Name Role Phone Meli Gallardo MIGUEL ANGEL Primary Care Provider Tito Sue MD Unavailable [phone] Encounter Details Date Type Department Care Team (Late st Contact Info) Description 08/18/2025 Telephone [place] [facility] [address] [place] [address] Tito Sue MD [address] [place] [address] Social History Tobacco Use Types [...] often do you attend chur ch or sikhism services? Never 10/02/2024 Do you belong to any clubs o r organizations such as confucianist groups, unions, fraternal or athletic groups, or [...] Recorded Patient Health Questionnaire-2 Score 0 02/24/2024 [facility] - Occupational Stress Questionnaire Answer Date [...] in the past 12 m [facility], were you homeless or living in a assisted (including now)? 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 0 10/01/2024 CAGE Questionnaire Score 0 024 Utilities Answer Date Recorded In the past 12 months has th e [employer], gas, oil, or water company threatened to [...] documented as of this encounter Care Teams Superintendent Container Terminal Relationship Specialty Start Date End Date Meli Gallardo APRN [id number] PCP - General 02/17/21 Tito Sue MD [address] [address] Surgeon Neurosurgery 07/21/25 documented as of this encounter
--- OUTSIDE RECORDS SUMMARY | 2025-10-01 20:14 | XMS_ITS | Encounter Summary ---
Author Organization Healthcare Address [address] [place] [address] Care Team Providers Care Wire Coiler Machine Operator Name Role Phone Meli Gallardo MIGUEL ANGEL Primary Care Provider [phone] Tito Sue MD Unavailable [phone] Encounter Details Date Type Department Care Team (Late st Contact Info) Description 09/08/2025 Telephone [place] [facility] [address] [place] [address] Tito Sue MD [address] [place] [address] Social History Tobacco Use Types [...] often do you attend chur ch or methodist services? Never 10/02/2024 Do you belong to any clubs o r organizations such as latter day groups, unions, fraternal or athletic groups, or [...] Recorded Patient Health Questionnaire-2 Score 0 02/24/2024 [facility] - Occupational Stress Questionnaire Answer Date [...] time in the past 12 m [facility], were you homeless or living in a prison (including now)? 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 0 10/01/2024 CAGE Questionnaire Score 0 024 Utilities Answer Date Recorded In the past 12 months has th e [employer], gas, oil, or water [employer] threatened to shut off services in [...] to 4:00pm (Mon.-Fri.) * Telephone Encounter - Mik Agustin - 09/08/2025 10:02 AM EST Patient Phone Message Reason for Call: Patient calling to schedule follow up with Dr. Sue Best contact number and optimal time of day to reach caller: [phone] Note: Please do not reply to this message. Follow-up communication and further actions as a result of this message need to be communicated with the patient directly, if the patient is not active onMyChart. If the patient is active on MyChart, they will receive notification of the communication/outcome via Ortherat. documented in this encounter Plan of Treatment [...] documented as of this encounter Care Teams Wire Coiler Machine Operator Relationship Specialty Start Date End Date Meli Gallardo APRN [id number] PCP - General 02/17/21 Tito Sue MD [address] [place] [address] Surgeon Neurosurgery 07/21/25 documented as of this encounter
--- OUTSIDE RECORDS SUMMARY | 2025-10-01 20:14 | XMS_ITS | Continuity of Care Document ---
Author Organization [place] - [employer] [facility] Address [address] [place] [id number] Assessment No assessment recorded. Plan of Treatment Reminders Order Date Submit Date Provider Last Modified By Organization Details Last Modified Time Details Appointments None recorded. Lab rapid influenza virus A + B and SARS CoV + SARS CoV 2 Ag panel, [place], upper respiratory specimen 2024 [email or web address] [facility], [address] [place] [address], [phone], 10:58:12 Referral None recorded. Procedures None recorded. Surgeries None recorded. Imaging None recorded. Medication Orders doxycycline monohydrate 100 mg capsule 2024 [facility], [address] [place] [address], [address], 12:06:55 Paxlovid 150 mg-100 mg tablets in a dose pack (Moderate Renal Dose) 2024 [facility], [address] [place] [address], [address], 05:01:44 prednisone 20 mg tablet 2024 [facility], [address] [place] [address], [address], 05:01:44 albuterol sulfate HFA 90 mcg/actuati on aerosol inhaler 2024 [facility], [address] [place] [address], [address], 12:06:53 Patient TargetsNo targets recorded. Patient InstructionsNo instructions recorded. Reason for Referral None Reported. Results Created Date Observation Date Name Description Value Unit Range Abnormal Flag Note LastModifiedBy Organization Detail LastModifiedTime 09/06/20 25 09/06/2025 rapid influ brayden virus A + B and SARS CoV + SARS CoV 2 Ag panel , [place], upper respi rator y speci men SARS-CoV2 positi ve Not Available [address], [address], 09/06/2025 10:20:24 09/06/20 25 09/06/2025 rapid influ brayden virus A + B and SARS CoV + SARS CoV 2 Ag panel , [place], upper respi rator y speci men Flu A negati ve Not Available [address], [address], 09/06/2025 10:20:24 09/06/20 25 09/06/2025 rapid influ brayden virus A + B and SARS CoV + SARS CoV 2 Ag panel , [place], upper respi rator y speci men Flu B negati ve Not Available [address], [address], 09/06/2025 10:20:24 09/29/20 25 09/29/2025 XR, chest No observ ation record ed. [email or web address] [place] [address], [place], [address], 09/29/2025 11:56:26 09/29/20 25 09/29/2025 CT, angio gram, chest , w/ contr ast No observ ation record ed. [email or web address] [facility] [address], [place], [address], 09/29/2025 14:05:25 12/24/20 25 09/29/2025 imagi ng/di agnos tic resul t No observ ation record ed. [email or web address] [facility] [address], [place], [address], 10/01/2025 15:00:33 Result Notes None recorded. Problems Name Problem SNOMED Code Status Onset Date Resolution Date Notes Provider Name and Address Organization Details Recorded Time Wheezing [id number] Completed 201609/11/2017 Problem Code: R06.2; Problem Code Type: ICD-10; Not Available [facility] 2 22:05:38 Gastroes ophageal reflux disease without esophagi tis 691577138 Completed 201610/30/2017 Not Available [facility] 2 22:05:37 Gastroes ophageal reflux disease 732301008 Completed 201601/31/2018 Problem Code: 530.81; Problem Code Type: ICD-9; Not Available [facility] 2 22:05:44 Influenz a 6550581 Completed 201710/30/2017 Problem Code: J10.1; Problem Code Type: ICD-10; Not Available [facility] 2 22:05:36 Acute bronchit is 47471345 Completed 201710/30/2017 Problem Code: J20.8; Problem Code Type: ICD-10; ADY solano [facility] [employer] 2 09:28:05 Influenz a with respirat ory manifest ation other than pneumoni a Completed 201710/30/2017 Problem Code: 487.1; Problem Code Type: ICD-9; Not Available [facility] 2 22:05:47 Breast neoplasm screenin g status 124264900 Completed 201712/29/2017 Problem Code: Z12.39; Problem Code Type: ICD-10; Not Available [employer] 2 22:05:39 Screenin g for malignan t neoplasm of breast Completed 201712/29/2017 Problem Code: V76.10; Problem Code Type: ICD-9; Not Available [facility] 2 22:05:46 Acute cystitis 54016338 Completed 201712/20/2017 Problem Code: N30.00; Problem Code Type: ICD-10; Not Available [facility] 2 22:05:38 Low back pain 083641822 Completed 201712/23/2017 Problem Code: M54.5; Problem Code Type: ICD-10; ADY solano [facility] [employer] 2 09:28:05 Back problem 001376925 Completed 201712/23/2017 Problem Code: 724.8; Problem Code Type: ICD-9; Not Available [facility] 22:05:48 Plane wart 239298224 Completed 201704/01/2018 Problem Code: B07.8; Problem Code Type: ICD-10; Not Available [facility] 2 22:05:34 Atrophy of thyroid - acquired 590426353 Completed 201710/11/2018 Problem Code: E03.4; Problem Code Type: ICD-10; Not Available [facility] 2 22:05:34 Mixed hyperlip idemia 325818466 Active 2017 Problem Code: E78.2; Problem Code Type: ICD-10; Not Available [facility] 2 22:05:35 Generali zed anxiety disorder 28730129 Active 2017 Problem Code: F41.1; Problem Code Type: ICD-10; Not Available [facility] 2 22:05:35 Hyperten sive disorder 07444458 Completed 201705/05/2018 Problem Code: I10; Problem Code Type: ICD-10; Not Available [facility] 2 22:05:35 Acquired hypothyr oidism 563270338 Completed 201708/06/2018 Problem Code: 244.8; Problem Code Type: ICD-9; Not Available [facility] 2 22:05:42 Verruca vulgaris 42553629 Completed 201704/01/2018 Problem Code: 078.19; Problem Code Type: ICD-9; Not Available [facility] 2 22:05:43 Benign essentia l hyperten gerber 3991358 Active 2017 Problem Code: 401.1; Problem Code Type: ICD-9; Not Available [facility] 2 22:05:44 Verruca vulgaris 04931666 Completed 201704/05/2018 Problem Code: B07.9; Problem Code Type: ICD-10; Not Available [facility] 2 22:05:34 Acute sinusiti s 92335267 Completed 201704/09/2018 Problem Code: J01.90; Problem Code Type: ICD-10; ADY solano [employer] 2 09:28:05 Otitis externa 2732223 Completed 201706/03/2018 Problem Code: H60.339; Problem Code Type: ICD-10; Not Available [facility] 2 22:05:35 Otitis externa of right ear 59246391881 97104 Completed 201710/13/2018 Problem Code: H60.331; Problem Code Type: ICD-10; Not Available [facility] 2 22:05:35 Acute swimmer' s ear Completed 201706/03/2018 Problem Code: 380.12; Problem Code Type: ICD-9; Not Available [facility] 2 22:05:44 Dizzines s and giddines s 965627089 Completed 201710/13/2018 Problem Code: 780.4; Problem Code Type: ICD-9; Not Available [facility] 2 22:05:45 Focal oral mucinosi s 693909126 Completed 201708/19/2018 Problem Code: K13.79; Problem Code Type: ICD-10; Not Available [facility] 2 22:05:37 Lumbosac ral radiculo chalino 1242259 Active 2017 Problem Code: M54.16; Problem Code Type: ICD-10; Not Available [facility] 2 22:05:37 Disorder of oral soft tissues 00564032 Completed 201708/19/2018 Problem Code: 528.9; Problem Code Type: ICD-9; Not Available [facility] 2 22:05:44 Vitamin D deficien cy 57331487 Active 2017 Problem Code: E55.9; Problem Code Type: ICD-10; Not Available [facility] 2 22:05:35 Pain of intercos brandon space 004154421 Completed 201710/13/2018 Problem Code: R07.82; Problem Code Type: ICD-10; Not Available [facility] 2 22:05:38 Chest pain 05178044 Completed 201710/13/2018 Problem Code: 786.59; Problem Code Type: ICD-9; Not Available [facility] 2 22:05:45 Myositis 36000665 Completed 201810/25/2018 Problem Code: M60.9; Problem Code Type: ICD-10; Not Available [facility] 2 22:05:38 Fibromyo sitis 12903317 Completed 201810/25/2018 Problem Code: 729.1; Problem Code Type: ICD-9; Not Available [facility] 2 22:05:45 Nummular eczema 72994243 Completed 201808/01/2020 Problem Code: L30.0; Problem Code Type: ICD-10; Not Available [facility] 2 22:05:37 Screenin g mammogra phy Completed 201804/28/2019 Problem Code: Z12.31; Problem Code Type: ICD-10; ADY solano [employer] 2 09:28:05 Bronchop neumonia 132761896 Completed 201804/28/2019 Problem Code: J18.0; Problem Code Type: ICD-10; Not Available [facility] 2 22:05:36 Abscess of abdomina l wall 49201871 Completed 201804/28/2019 Problem Code: L02.211; Problem Code Type: ICD-10; Not Available [facility] 2 22:05:37 Influenz a vaccine needed 51065328909 06 Completed 201804/28/2019 Problem Code: Z23; Problem Code Type: ICD-10; ADY MIREYASTEFAN null, [facility] 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 2 09:28:05 Chemical pneumoni tis caused by anesthes ia 52826739200 080638 Completed 201807/02/2022 ADY MIREYAJOSER null, [employer] 2 09:28:05 Influenz a vaccine needed 63130020957 06 Completed 201808/01/2020 Problem Code: Z23; Problem Code Type: ICD-10; ADY MIREYAJOSER null, [facility] 2 09:28:05 General examinat ion of patient Active 2019 Not Available [facility] 2 22:05:38 Screenin g mammogra phy Completed 201907/02/2022 Problem Code: Z12.31; Problem Code Type: ICD-10; ADY MIREYAJOSER null, [facility] 2 09:28:05 Acute frontal sinusiti s 48515384 Completed 201908/01/2020 Problem Code: J01.11; Problem Code Type: ICD-10; ADY MIREYANEAR null, [employer] 2 09:28:05 Screenin g mammogra phy Completed 201907/12/2020 Problem Code: Z12.31; Problem Code Type: ICD-10; ADY GOMESSTEFAN null, [employer] 2 09:28:05 Disorder of upper respirat ory system 870051291 Completed 201901/31/2021 Problem Code: J06.9; Problem Code Type: ICD-10; Not Available [facility] 2 22:05:36 Influenz a vaccine needed 20728008619 06 Completed 201908/01/2020 Problem Code: Z23; Problem Code Type: ICD-10; ADY MYSTEFAN null, [employer] 2 09:28:05 Viral pneumoni a 77325740 Completed 201907/02/2022 Problem Code: J12.89; Problem Code Type: ICD-10; ADY GOMESJOSER null, [employer] 2 09:28:05 Acute sinusiti s 64559727 Completed 202007/02/2022 Problem Code: J01.90; Problem Code Type: ICD-10; ADY MYJOSER null, [employer] 2 09:28:05 Body mass index 30+ - obesity 075091411 Active 2020 Problem Code: Z68.34; Problem Code Type: ICD-10; Not Available [facility] 2 22:05:42 Low back pain 770230023 Completed 202007/02/2022 Problem Code: M54.5; Problem Code Type: ICD-10; ADY MIREYAJOSER null, [employer] 2 09:28:05 Acute bronchit is 98860653 Completed 202007/02/2022 Problem Code: J20.9; Problem Code Type: ICD-10; ADY MIREYAJOSER null, [employer] 2 09:28:05 Influenz a vaccine needed 28408720173 06 Completed 202007/02/2022 Problem Code: Z23; Problem Code Type: ICD-10; ADY solano, [employer] 2 09:28:05 Abscess of limb 102099865 Completed 202107/02/2022 Problem Code: L02.415; Problem Code Type: ICD-10; ADY solano, [employer] 2 09:28:05 Radiculo chalino due to lumbar interver tebral disc disorder 76055420213 9105 Active 2023 Meli Gallardo APRN [address] [place] [address], [address] [place] [address] , [employer] 4 10:32:09 Essentia l hyperten gerber 66994474 Active 2024 Meli Gallardo APRN [address] [place] [address], [address] [place] [address] , [employer] 5 09:56:57 Hypothyr oidism 06452737 Active 2024 Meli Gallardo APRN [address] [place] [address], [address] [place] [address] , [employer] 5 16:14:59 COVID-19 872783174 Active 2024 Meli Gallardo APRN [address] [place] [address], [address] [place] [address] , [employer] 5 10:48:35 Notes:*Problem Name: Incompl ete rotator cuff tear or rupture of right shoulder, not specified as traumatic *Problem Status: Chronic *Comments: *Problem Code: M75.111 *Problem Code Type: ICD-10 *Note Date: 11/01/2021 Some problems listed in Documents: #[id number], #[id number] could not be added to this patient's chart. Please review these documents and add these problems to the patient's chart manually as needed. Problem Notes None recorded. Procedures Surgical History Date Name Laterality Status Provider Name and Address Organization Details Recorded Time 025 Most Recent Mammogram completed ADY [employer] 01/01/2025 08:24:08 024 implantation of insertable loop recorder completed Meli Gallardo APRN [address] [place], [address], [facility] 05/20/2024 16:49:29 023 cardiac catheterization completed Meli Gallardo APRN [address] [place], [address], [facility] 01/07/2023 14:35:31 019 screening colonoscopy completed Myra Laura [facility] 12/17/2022 10:33:56 017 hysterectomy completed Not Available [facility] 06/12/2022 22:56:08 017 Date of Last Pap Smear completed [employer] 07/02/2022 09:29:20 Gallbladder Surgery completed YOMI A [employer] 07/02/2022 09:32:24 Carpal tunnel surgery completed ADY [employer] 07/02/2022 09:32:35 Hemorrhoidectomy completed [employer] 07/02/2022 09:32:46 Knee arthroscopy/surgery completed [employer] 07/02/2022 09:33:23 procedure on elbow completed ADY [employer] 07/02/2022 09:33:43 thyroidectomy completed [employer] 07/02/2022 09:33:57 Imaging Results None recorded. Procedure Notes None recorded. Medical Equipment None Reported. Allergies Allergen ID Allergen Name Allergen Category Reaction Reaction Severity Criticality Documentation Date Start Date Code Code System Note Provider Name and Address Organization Details Recorded Time 20574 Product containin g penicilli n (product) medicatio n Not available Not available Not available 06/12/2022 48652 8001 SNOMED Myra solano, [facility] 3 13:50:04 89395 Substance with sulfonami de structure and antibacte rial mechanism of action (substanc e) medicatio n Not available Not available Not available 06/12/2022 52045 8003 SNOMED Myra solano, [facility] 3 13:50:07 82649 Premarin medicatio n Not available Not available Not available 06/12/2022 26992 6 RxNorm Not Available [facility] 2 22:54:21 99440 morphine sulfate medicatio n Not available Not available Not available 06/12/2022 15991 RxNorm Not Available [facility] 2 22:54:22 21413 erythromy radha medicatio n Not available Not available Not available 06/12/2022 4053 RxNorm Not Available [facility] 2 22:54:22 04724 Zyrtec medicatio n Not available Not available Not available 06/12/2022 33335 RxNorm Not Available [facility] 2 22:54:22 40259 codeine medicatio n Not available Not available Not available 07/02/2022 2670 RxNorm ADY solano, [facility] 2 09:22:53 50907 codeine phosphate medicatio n Not available Not available Not available 09/06/20252007 2672 RxNorm Not Available [employer] - prod 5 10:08:20 11941 azithromy radha medicatio n rash Not available low 09/06/20252017 42775 RxNorm Not Available [employer] - prod 5 10:08:25 07711 cephalexi n medicatio n hives rash Not available Not available low 09/06/20252017 2231 RxNorm Not Available [employer] - prod 5 10:08:25 09146 morphine medicatio n palpitati ons Not available low 09/06/20252017 7052 RxNorm Hear t beat reall y fast Not Available [employer] - prod 5 10:08:25 31792 estrogens , conjugate d (SKILLED NURSING) medicatio n other Not available low 09/06/20252021 4099 RxNorm BLE numbn ess Not Available [employer] - prod 5 10:08:25 13666 cetirizin e medicatio n rash Not available low 09/06/20252017 95743 RxNorm Not Available [employer] - prod 5 10:08:25 49687 penicilli n V Not available Not available Not available Not available 09/06/2025 7984 RxNorm unrec ogniz ed react ion (text : Adver se react ion to subst ance, code: 26512 0009) , moder ate (from exter nal sourc e) Not Available [employer] - prod 5 10:18:25 78088 amoxicill in medicatio n rash Not available low 09/06/20252020 723 RxNorm Not Available [employer] - prod 5 10:18:30 26206 Product containin g estrogen receptor agonist (product) medicatio n other Not available low 09/06/20252014 57998 003 SNOMED numbn ess Not Available [employer] - prod 5 10:18:30 15186 penicilli n G Not available hives Not available high 09/06/20252024 7980 RxNorm Not Available [employer] - prod 5 10:18:30 28408 Product containin g 3-hydroxy -3-methyl glutaryl- coenzyme A reductase inhibitor (product) medicatio n hives rash Not available Not available high 09/06/20252024 12118 009 SNOMED [place] kareem liver enzym es Not Available [employer] - prod 5 10:18:30 06690 sulfaceta mide medicatio n dyspnea hives rash Not available Not available Not available high 09/06/20252009 44402 RxNorm Not Available [employer] - External Data [...] Available Not Available Not Available Dexcom G6 Psychological Anthropologist USE DIRECTED . active Not Available Not [...] Available Not Available Not Available Afluria Qd (36 mos up)(PF)60 mcg (15 mcg x4)/0.5 [...] Updated DateTime 5 154.94 cm 33.8 kg/m2 26715.0 3 g 97.3 [degF] 105 /min 94 % 105/67 mm[Hg] [facility] 10:19:50 Social History Question Answer Notes LastModified by Organizat ion Details LastModified Time Tobacco Smoking Status Never Smoker Myra solano [facility] [employer] 11/12/2022 10:37:22 Do You Have An Advance [...] Do You Have A Medical Power Of Loader Demolder? No Information not available 07/02/2022 What Was [...] Functional Status Question Answer Note LastModified by [employer] ion Details LastModified Time Do you use [...] Influenza, high-dose, quadrivalent, PF 3 completed Shantel Stack APRN [address] [place] [address], [address], [facility] 07/08/2023 15:19:03 zoster recombinant 4 completed Meli Gallardo APRN [address] [place] [address], [address], [facility] 03/22/2024 22:40:12 pneumococcal polysaccharide PPV23 4 completed Meli Gallardo APRN [address] [place], [address], [facility] 06/21/2024 15:45:20 Influenza, high-dose, trivalent, PF 4 completed Meli Gallardo APRN [address] [place], [address], [facility] 07/07/2024 16:31:15 COVID-19, mRNA, LNP-S, PF, 100 mcg/0.5mL dose or 50 mcg/0.25mL dose 1 completed ADY solano, [facility] 10/09/2022 11:27:51 COVID-19, mRNA, LNP-S, PF, 100 mcg/0.5mL dose or 50 mcg/0.25mL dose 1 completed ADY MYNEAR null, [facility] 10/09/2022 11:27:51 Influenza, split virus, quadrivalent, preservative 8 completed ADY MYNEAR null, [facility] 10/09/2022 11:27:51 Influenza, split virus, trivalent, preservative 7 completed Not Available [facility] 11/04/2023 12:52:24 Hep A, adult 9 completed ADY MYNEAR null, [facility] 10/09/2022 11:27:52 Hep A, adult 9 completed Not Available [facility] 06/12/2022 23:57:18 Influenza, MDCK, quadrivalent, preservative 9 completed ADY MYNEAR null, [facility] 10/09/2022 11:27:52 Influenza, split virus, quadrivalent, preservative 0 completed ADY MYNEAR null, [facility] 10/09/2022 11:27:51 Influenza, recombinant, quadrivalent, PF 1 completed ADY MYNEAR null, [facility] 10/09/2022 11:27:51 Influenza, split virus, trivalent, preservative 0 completed ADY MYNEAR null, [facility] 10/09/2022 11:27:51 Influenza, split virus, trivalent, preservative 2 completed ADY MYNEAR null, [facility] 10/09/2022 11:27:51 Influenza, split virus, quadrivalent, PF 2 completed ADY MYNEAR null, [facility] 10/09/2022 11:27:52 Tdap 1 completed ADY MYNEAR null, [facility] 10/09/2022 11:27:52 COVID-19, mRNA, LNP-S, PF, 100 mcg/0.5mL dose or 50 mcg/0.25mL dose 1 completed ADY GOMESNEAR null, [place] [employer] 10/09/2022 11:27:52 zoster recombinant 5 completed ADY MIREYANEAR null, [facility] 04/27/2025 10:52:09 Influenza, split virus, trivalent, PF 5 completed Judith Kate null, [place] [employer] 08/06/2025 17:13:28 Past Encounters Encounter ID Performer Location Encounter Start Date Encounter Closed Date Diagnosis/Indication Diagnosis SNOMED-CT Code Diagnosis ICD10 Code Diagnosis IMO Codes Diagnosis Note [id number] Meli Gallardo APRN [address] [address] 09/06/2025 10:01:34 09/06/2025 11:03:54 COVID-19 [id number] U07.1 [id number] We will exam both antiviral therapies and [...] Monreal Member ID Guarantor Name 09/06/2025 2 [employer] [place] (MEDICAID HMO) April Olvera [id number] April Olvera 09/06/2025 1 [facility] - DUAL ELIGIBLE (MEDICARE REPLACEMENT/A DVANTAGE - HMO) DARI Olvera [id number] April Olvera Notes Date Note Type Note [...] noted in the HPI Meli Gallardo APRN [address] [place] [address], [place], [address], [facility] [employer] 09/06/2025 17:39:09 OBGyn Episode No OBEpisode recorded.
--- OUTSIDE RECORDS SUMMARY | 2025-10-01 20:14 | XMS_ITS ---
Author Organization [facility] , [facility] Address [address] [address] Phone Care Team Providers Care Coin Machine Supervisor Name Role Phone Meli Gallardo APRN Unavailable [phone] Roselyn MCKEON, Tyler Yadav Unavailable [phone] Reason for Referral 09/04/2022 Encounter for Post Op Date Recorded Target Due Date Referral Type Referring Prov ider Reason For Referral 09/04/2022 Tyler boyd MD referral to physician Last Documented On 2 3:01PM ; [facility] 07/25/2022 Encounter for Follow Up Date Recorded Target Due Date Referral Type Referring Prov ider Reason For Referral 07/25/2022 Tyler boyd MD referral to physician Last Documented On 2 7:59AM ; [facility] 07/11/2022 Encounter for Physician Specified Date Recorded Target Due Date Referral Type Referring Prov ider Reason For Referral 07/11/2022 Tyler boyd MD referral to physician Last Documented On 2 10:11AM ; [facility] Problems Includes: Active, inactive, and resolved Problems All Visits Onset Date Date of Diagnosis Resolved Date Provider Condition Status Joint Pain Knee 07/11/2022 07/11/2022 Tyler Dempsey MD Active Last Documented On 5 1:41AM ; [facility] Plan of Treatment Pending Tests Order Diagnosis Results Due Ordering Leif khan Radiology - CT Scan Knee 07/25/22 Tyler Dempsey MD Last Documented On 2 10:33AM ; [facility] Instructions to patient Lose weight Last Documented On 2 3:01PM ; [facility] Lose weight Last Documented On 2 7:59AM ; [facility] Lose weight Last Documented On 2 10:11AM ; [facility] Assessments Includes: Assessments for all patient encounters No Assessments Recorded Instructions Includes: Instructions for all patient encounters Instructions to patient Lose weight Last Documented On 2 3:01PM ; [facility] Lose weight Last Documented On 2 7:59AM ; [facility] Lose weight Last Documented On 2 10:11AM ; [facility] Medical Equipment - Implanted Devices Includes: Current and historical Devices No Medical Equipment Recorded Medications Includes: Current and historical Medications Current Medications (continue as prescribed) Carvedilol 25 MG Oral Tablet 07/11/2022 Provider: Diagnosis: Last Documented On 2 9:51AM By Arleen Carias ; [facility] HumaLOG Mix 75/25 KwikPen (7 5-25) 100 UNIT/ML Subcutaneous Suspension Pen-injector 07/09/2022 Provider: Israel Gallardo APRN Diagnosis: Last Documented On 2 9:51AM By Arleen Carias ; [facility] Clopidogrel Bisulfate 75 MG Oral Tablet 07/04/2022 Leif khan: FRANCISCO JOSEPH MD Diagnosis: Last Documented On 2 9:51AM By Arleen Carias ; [facility] Fluticasone Propionate 50 MC G/ACT Nasal Suspension 07/04/2022 Provider: Meli Gallardo APRN Diagnosis: Last Documented On 2 9:51AM By Arleen Carias ; [facility] busPIRone HCl 10 MG Oral Tablet 06/26/2022 Provider: Meli Gallardo APRN Diagnosis: Last Documented On 2 9:51AM By Arleen Carias ; [facility] Citalopram Hydrobromide 40 MG Oral Tablet 05/25/2022 Provider: Meli Gallardo APRN Diagnosis: Last Documented On 2 9:51AM By Arleen Carias ; [facility] Jardiance 25 MG Oral Tablet 05/15/2022 Provider: Meli Gallardo APRN Diagnosis: Last Documented On 2 9:51AM By Arleen Carias ; [facility] amLODIPine Besylate 10 MG Oral Tablet 04/12/2022 Pro vider: FRANCISCO JOSEPH MD Diagnosis: Last Documented On 2 9:51AM By Arleen Carias ; [facility] Past Medications on file oxyCODONE HCl 5 MG Oral Tablet 08/20/2022 - 08/22/2022 Provider: Tyler Dempsey MD Diagnosis: 1-2 p o q 6-8h Last Documented On 2 7:40AM By Tyler Dempsey M.D. ; [facility] Ondansetron HCl 4 MG Oral Tablet 08/20/2022 - 09/01/2022 Provider: Tyler Dempsey MD Diagnosis: 1 po q 6h prn nausea Last Documented On 2 7:40AM By Tyler Dempsey M.D. ; [facility] Adult Aspirin Regimen 81 MG Oral Tablet Delayed Release 08/20/2022 - 09/03/2022 Provider: Tyler Madera MD Diagnosis: once a day Last Documented On 2 7:40AM By Tyler Dempsey M.D. ; [facility] Medications Administered Includes: Administered Medications in patient's chart No Administered Medications Recorded Results Includes: Results from 10/01/2024 through 10/01/2025 No Results Recorded For Specified Dates Social History Description Last Updated Tobacco non-user 07/11/2022 Last Documented On 2 10:33AM ; [facility] No caffeine use 07/11/2022 Last Documented On 2 10:33AM ; [facility] No recent change in diet 07/11/2022 Last Documented On 2 10:33AM ; [facility] Not a current smoker. 07/11/2022 Last Documented On 2 10:33AM ; [facility] Not exercising regularly 07/11/2022 Last Documented On 2 10:33AM ; [facility] Not using alcohol 07/11/2022 Last Documented On 10:33AM ; [facility] Not using drugs 07/11/2022 Last Documented On 10:33AM ; [facility] Sex - Female 09/13/2022 Last Documented On 4:34PM ; [facility], [facility] Smoking Status Unknown Procedures and Surgical History Surgical History Last Updated History of back surgery 07/11/2022 Last Documented On 10:33AM ; [facility] History of History of Gallbladder 2021 Last Documented On 2 10:33AM ; [facility] History of hysterectomy 07/11/2022 Last Documented On 10:33AM ; [facility] History of shoulder arthroplasty 022 Last Documented On 10:33AM ; [facility] Medical History Includes: Medical History in patient's chart Description Last Updated History of arthritis 07/11/2022 Last Documented On 10:33AM ; [facility] History of diabetes mellitus 07/11/2022 Last Documented On 2 10:33AM ; [facility] History of Heartburn / Acid Reflux 07/11 Last Documented On 10:33AM ; [facility] History of History of Heart Attack / Str jacob 07/11/2022 Last Documented On 2 10:33AM ; [facility] History of Hypertension 07/11/2022 Last Documented On 10:33AM ; [facility] History of Thyroid Disease 07/11/2022 Last Documented On 10/05/202 2 10:33AM ; [facility] Recent immunization for flu 07/06/2022 Last Documented On 2 10:33AM ; [facility] Recent immunization for pneumococcal pne umonia 201907/11/2022 Last Documented On 2 10:33AM ; [facility] Family History Includes: Family History in patient's chart Description Last Updated Diabetes mellitus 07/11/2022 Last Documented On 2 10:33AM ; [facility] Family history of cancer 07/11/2022 Last Documented On 2 10:33AM ; [facility] Family history of heart disease 07/11/20 Last Documented On 2 10:33AM ; [facility] Family history of systemic hypertension 07/11/2022 Last Documented On 2 10:33AM ; [facility] Mental Status Description Anxiety Last Documented On 2 3:01PM ; [facility] Anxiety Last Documented On 2 7:59AM ; [facility] Anxiety Last Documented On 2 9:55AM ; [facility] Immunizations Includes: Immunizations in patient's chart Vaccine Dose # Date Site Reaction(s) Status Source Influenza 1 07/09/2022 Complete (Reported) Patient Last Documented On 2 3:03PM ; [facility], [facility] Allergies Includes: Active, inactive, and resolved Allergies Substance Type Reaction Onset Date Resolved Date Statu s Sulfac Allergy 08/31/2008 Active Last Documented On 2 7:59AM ; [facility] Penicillins Allergy 08/31/2008 Active Last Documented On 2 7:59AM ; [facility] Morphine Derivatives Allergy 08/31/2008 Active Last Documented On 2 7:59AM ; [facility] Keflex Allergy 08/31/2008 Active Last Documented On 2 7:59AM ; [facility] Erythromycin Allergy 08/31/2008 Active Last Documented On 2 7:59AM ; [facility] Codeine Phosphate Allergy 08/31/2008 A ctive Last Documented On 2 7:59AM ; [facility] Care Coin Machine Supervisor Name (Identifier) Role/Relation Location/Telecom Last Documented By Meli Gallardo APRN ([id number]) [address] [place] [address], [place], [address] tel:[phone] Last Documented On 07/11/2022 10:08AM ; [facility], [facility] Tyler Dempsey MD ([id number]) Assigned practitioner (occupation) [address] [place] [address], [place], [address] tel: Last Documented On 09/13/2022 4:34PM ; [facility] Payer Includes: Active Insurance Policies Plan Name (Payer ID) Coverage Type Member ID Group # Subscriber (ID) Relationship Effective Dates 1 - [facility] ([id number]) [id number] GABE OLVERA Self 10/07/2019 - Unknown Last Documented On 2 8:43AM ; [facility]
--- OUTSIDE RECORDS SUMMARY | 2025-10-01 20:14 | XMS_ITS | Encounter Summary ---
Author Organization Healthcare Address [address] [place] [address] Care Team Providers Care X Ray Technologist Name Role Phone Meli Gallardo MIGUEL ANGEL Primary Care Provider [phone] Tito Sue MD Unavailable [phone] Encounter Details Date Type Department Care Team [...] How often do you attend chur or shinto services? Never 10/02/2024 Do you belong to [...] Recorded Patient Health Questionnaire-2 Score 0 02/24/2024 [facility] - Occupational Stress Questionnaire Answer Date [...] any time in the past 12 m [facility], were you homeless or [...] drink first t allison in the morning (EYE-SALESPERSON BURIAL PLOTS) to steady your nerves or to get [...] documented as of this encounter Care Teams X Ray Technologist Relationship Specialty Start Date End Date Meli Gallardo APRN [id number] PCP - General 02/17/21 Tito Sue MD [address] [facility] [address] [place] [address] Surgeon Neurosurgery 07/21/25 documented as of this encounter
--- OUTSIDE RECORDS SUMMARY | 2025-10-01 20:14 | XMS_ITS | Encounter Summary ---
Author Organization Healthcare Address [address] [place] [address] Care Team Providers Care Chief Dog License Inspector Name Role Phone Meli Gallardo MIGUEL ANGEL Primary Care Provider [phone] Tito Sue MD Unavailable [phone] Encounter Details Date Type Department Care Team [...] How often do you attend chur or yarsanism services? Never 10/02/2024 Do you belong to any clubs o r organizations such as oriental orthodox groups, unions, fraternal or athletic groups, or [...] in the past 12 m [facility], were you homeless or living in a fdc (including now)? No 05/18/2025 CAGE ASSESSMENT Answer [...] drink first t allison in the morning (EYE-CLARIFICATION OPERATOR) to steady your nerves or to [...] documented as of this encounter Care Teams Chief Dog License Inspector Relationship Specialty Start Date End Date Meli Gallardo APRN [id number] PCP - General 02/17/21 Tito Sue MD [address] [facility] [address] [place] [address] Surgeon Neurosurgery 07/21/25 documented as of this encounter
--- OUTSIDE RECORDS SUMMARY | 2025-10-01 20:14 | XMS_ITS | Encounter Summary ---
Author Organization [facility] Address [address] [id number] Care Team Providers Care Artist'S Model Name Role Phone Sami Meli MIGUEL ANGEL Primary Care Provider [phone] Tito Sue MD Unavailable [phone] Reason for Referral * Consultation (Routine) - Authorized Specialty Diagnoses / Procedures Referred By Contpari t Referred To Contact Endodontics / Dentistry Diagnoses Extraction of tooth needed Nisa Wilks DMD [address] [place] [address] Phone: tel: fax: [facility] [address] [place] [address] Phone: tel: fax: Referral ID Status Reason Start Date Expiration Date Visits Requested Visits Authorized [id number] Authorized Specialty Services Required 2025 10/20/2026 1 1 Encounter Details Date Type Department Care Team (Late st Contact Info) Description 2025 [facility] Orders Community [facility] [address] [place] [address] Nisa Wilks DMD [address] [place], [place] [id number] Extraction of tooth needed (Primary Dx) Social [...] week 10/02/2024 How often do you attend [facility] or religion services? Never 10/02/2024 Do you belong to any clubs o r organizations such as cheondoism groups, unions, fraternal or athletic groups, or [...] Recorded Patient Health Questionnaire-2 Score 0 02/24/2024 [facility] [place] [facility] - Occupational Stress [...] time in the past 12 m [facility], were you homeless or living in [...] drink first t allison in the morning (EYE-COPY READER) to steady your nerves or to get [...] documented as of this encounter Care Teams Artist'S Model Relationship Specialty Start Date End Date Meli Gallardo APRN [id number] PCP - General 02/17/21 Tito Sue MD [address] [address] Surgeon Neurosurgery 07/21/25 documented as of this encounter
--- OUTSIDE RECORDS SUMMARY | 2025-10-01 20:14 | XMS_ITS | Data Portability ---
Author Organization [facility] [place] Ouner., [facility] Address [address] [place] [address] [place] [address] Assessment Encounter Date Assessment Date Assessment LastModified [...] [place], upper respiratory specimen [email or web address], [address], 5 10:58:12 HbA1c (hemoglobin A1c), blood [email or web address], [address], 5 16:15:21 TSH, ultra-sensi tive, serum 2024 025 [facility]), [address] [place] [address], [address], 5 08:12:36 vitamin D, 25-hydroxy, total, serum 2024 025 [facility] [address] [place] [address], [address], 5 08:12:35 HbA1c (hemoglobin A1c), blood [address], [address] [place] [address], [address], 5 09:59:51 CMP, serum or plasma 2024 025 [facility]), [address] [place] [address], [address], 5 08:12:35 Referral orthopedic spine surgeon referral - first available appt 2024 [facility] Dept Of Neurosurgery, [address], [address], 5 09:40:05 Procedures None recorded. Surgeries None recorded. Imaging None recorded. Medication Orders doxycycline monohydrate 100 mg capsule 2024 [facility], [address] [place] [address], [address], 5 12:06:55 Paxlovid 150 mg-100 mg tablets in a dose pack (Moderate Renal Dose) 2024 [facility], [address] [place] [address], [address], 05:01:44 prednisone 20 mg tablet 2024 [facility], [address] [place] [address], [address], 05:01:44 albuterol sulfate HFA 90 mcg/actuati on aerosol inhaler 2024 [facility], [address] [place] [address], [address], 12:06:53 Ozempic 1 mg/dose (4 mg/3 mL) subcutaneou s pen injector 2024 [facility], [address] [place] [address], [address], 17:20:25 Humulin 70/30 U-100 Insulin KwikPen 100 unit/mL subcutaneou s 2024 [facility], [address] [place] [address], [address], 17:20:27 levothyroxi ne 150 mcg tablet 2024 [facility], [address] [place] [address], [address], 17:20:26 gabapentin 600 mg tablet 2024 [facility], [address] [place] [address], [address], 17:20:25 hydrocodone 5 mg-acetamin ophen 325 mg tablet 2024 025 [facility], [address] [place] [address], [address], 17:20:27 Repatha SureClick 140 mg/mL subcutaneou s pen injector 2024 025 [facility], [address] [place] [address], [address], 5 11:24:57 Ozempic 1 mg/dose (4 mg/3 mL) subcutaneou s pen injector 2024 025 [facility], [address] [place] [address], [address], 5 11:51:16 azithromyci n 250 mg tablet [email or web address] [place] [address] Pharmacy, [address] [place] [address], [address], 5 16:28:16 Patient TargetsNo targets recorded. Patient [...] routine Final report abnormal Not Available [facility] ([facility]) [address] [facility], [place], [address], 12/13/2024 09:07:51 12/12/1912/13/2024 URINE CULTU SABINE YOUSIF [...] p A). (CLSI ) Not Available [facility] ([facility]) [address] [facility], [place], [address], 12/13/2024 09:07:51 12/12/19 25 12/11/2024 urina lysis , dipst ick Leukocytes Negati ve Not Available [address], [address], 12/11/2024 13:40:55 12/12/19 25 12/11/2024 urina lysis , dipst ick Nitrite negati ve Not Available [address], [address], 12/11/2024 13:40:55 12/12/19 25 12/11/2024 urina lysis , dipst ick Urobilinogen .2 Not Available [address], [address], 12/11/2024 13:40:55 12/12/19 25 12/11/2024 urina lysis , dipst ick Protein 30 Not Available [address], [address], 12/11/2024 13:40:55 12/12/19 25 12/11/2024 urina lysis , dipst ick pH 6.0 Not Available [address], [address], 12/11/2024 13:40:55 12/12/19 25 12/11/2024 urina lysis , dipst ick Blood Negati ve Not Available [address], [address], 12/11/2024 13:40:55 12/12/19 25 12/11/2024 urina lysis , dipst ick Specific Stirum 1.025 Not Available [address], [address], 12/11/2024 13:40:55 12/12/19 25 12/11/2024 urina lysis , dipst ick Ketone Trace Not Available [address], [address], 12/11/2024 13:40:55 12/12/19 25 12/11/2024 urina lysis , dipst ick Bilirubin Negati ve Not Available [address], [address], 12/11/2024 13:40:55 12/12/19 25 12/11/2024 urina lysis , dipst ick Glucose 500 Not Available [address], [address], 12/11/2024 13:40:55 12/12/19 25 12/11/2024 urina lysis , dipst ick Appearance Clear Not Available [address], [address], 12/11/2024 13:40:55 12/12/19 25 12/11/2024 urina lysis , dipst ick Color Yellow Not Available [address], [address], 12/11/2024 13:40:55 04/27/20 25 04/27/2025 HbA1c (hemo globi n A1c), blood HbA1c 7.2 Not Available [address], [address], 04/26/2025 18:01:46 08/06/20 25 08/06/2025 HbA1c (hemo globi n A1c), blood HbA1c 9.0 Not Available [address], [address], 08/06/2025 15:55:28 09/06/20 25 09/06/2025 rapid influ brayden virus A + B and SARS CoV + SARS CoV 2 Ag panel , [place], upper respi rator y speci men SARS-CoV2 positi ve Not Available [address], [address], 09/06/2025 10:20:24 09/06/20 25 09/06/2025 rapid influ brayden virus A + B and SARS CoV + SARS CoV 2 Ag panel , [place], upper respi rator y speci men Flu A negati ve Not Available [address], [address], 09/06/2025 10:20:24 09/06/20 25 09/06/2025 rapid influ brayden virus A + B and SARS CoV + SARS CoV 2 Ag panel , [place], upper respi rator y speci men Flu B negati ve Not Available [address], [address], 09/06/2025 10:20:24 12/12/19 25 XR, abdom en, 1 view No observ ation record ed. [email or web address] [address], [address], 12/11/2024 17:34:33 12/25/19 25 12/22/2024 MAMMO , scree litzy, digit al, bilat eral No observ ation record ed. [email or web address] [facility] [address], [place], [address], 12/25/2024 13:18:11 04/06/20 25 04/06/2025 CT, lumba r spine , w/o contr ast No observ ation record ed. [address], [place], [address], 04/06/2025 12:52:30 04/06/20 25 04/06/2025 CT, myelo gram, lumba r spine No observ ation record ed. [address], [place], [address], 04/06/2025 14:14:52 09/29/20 25 09/29/2025 XR, chest No observ ation record ed. [place] [address], [place], [address], 09/29/2025 11:56:26 09/29/20 25 09/29/2025 CT, angio gram, chest , w/ contr ast No observ ation record ed. [address], [place], [address], 09/29/2025 14:05:25 09/29/20 25 09/29/2025 imagi ng/di agnos tic resul t No observ ation record ed. [place] [address], [place], [address], 10/01/2025 15:00:33 Result Notes None recorded. Problems Name Problem SNOMED Code Status Onset Date Resolution Date Notes Provider Name and Address Organization Details Recorded Time Wheezing 83291557 Completed 201609/11/2017 Problem Code: R06.2; Problem Code Type: ICD-10; Not Available [facility] 2 22:05:38 Gastroes ophageal reflux disease without esophagi tis 193323456 Completed 201610/30/2017 Not Available [facility] 2 22:05:37 Gastroes ophageal reflux disease 978040859 Completed 201601/31/2018 Problem Code: 530.81; Problem Code Type: ICD-9; Not Available [facility] 2 22:05:44 Influenz a 5365206 Completed 201710/30/2017 Problem Code: J10.1; Problem Code Type: ICD-10; Not Available [facility] 2 22:05:36 Acute bronchit is 92308664 Completed 201710/30/2017 Problem Code: J20.8; Problem Code Type: ICD-10; ADY solano, [employer] 2 09:28:05 Influenz a with respirat ory manifest ation other than pneumoni a Completed 201710/30/2017 Problem Code: 487.1; Problem Code Type: ICD-9; Not Available [facility] 2 22:05:47 Breast neoplasm screenin g status 704911575 Completed 201712/29/2017 Problem Code: Z12.39; Problem Code Type: ICD-10; Not Available [facility] 2 22:05:39 Screenin g for malignan t neoplasm of breast Completed 201712/29/2017 Problem Code: V76.10; Problem Code Type: ICD-9; Not Available [facility] 2 22:05:46 Acute cystitis 22295335 Completed 201712/20/2017 Problem Code: N30.00; Problem Code Type: ICD-10; Not Available [facility] 2 22:05:38 Low back pain 428931102 Completed 201712/23/2017 Problem Code: M54.5; Problem Code Type: ICD-10; ADY solano, [employer] 2 09:28:05 Back problem 423722369 Completed 201712/23/2017 Problem Code: 724.8; Problem Code Type: ICD-9; Not Available [facility] 2 22:05:48 Plane wart 423225062 Completed 201704/01/2018 Problem Code: B07.8; Problem Code Type: ICD-10; Not Available [facility] 2 22:05:34 Atrophy of thyroid - acquired 028891961 Completed 201710/11/2018 Problem Code: E03.4; Problem Code Type: ICD-10; Not Available [facility] 2 22:05:34 Mixed hyperlip idemia 565602100 Active 2017 Problem Code: E78.2; Problem Code Type: ICD-10; Not Available [facility] 2 22:05:35 Generali zed anxiety disorder 96969175 Active 2017 Problem Code: F41.1; Problem Code Type: ICD-10; Not Available [facility] 2 22:05:35 Hyperten sive disorder 81397916 Completed 201705/05/2018 Problem Code: I10; Problem Code Type: ICD-10; Not Available [facility] 2 22:05:35 Acquired hypothyr oidism 101855429 Completed 201708/06/2018 Problem Code: 244.8; Problem Code Type: ICD-9; Not Available [facility] 2 22:05:42 Verruca vulgaris 35104184 Completed 201704/01/2018 Problem Code: 078.19; Problem Code Type: ICD-9; Not Available [facility] 2 22:05:43 Benign essentia l hyperten gerber 3514081 Active 2017 Problem Code: 401.1; Problem Code Type: ICD-9; Not Available [facility] 2 22:05:44 Verruca vulgaris 95280258 Completed 201704/05/2018 Problem Code: B07.9; Problem Code Type: ICD-10; Not Available [facility] 2 22:05:34 Acute sinusiti s 63676770 Completed 201704/09/2018 Problem Code: J01.90; Problem Code Type: ICD-10; ADY solano [facility] [employer] 2 09:28:05 Otitis externa 6048685 Completed 201706/03/2018 Problem Code: H60.339; Problem Code Type: ICD-10; Not Available [facility] 2 22:05:35 Otitis externa of right ear 31646482166 83083 Completed 201710/13/2018 Problem Code: H60.331; Problem Code Type: ICD-10; Not Available [facility] 2 22:05:35 Acute swimmer' s ear Completed 201706/03/2018 Problem Code: 380.12; Problem Code Type: ICD-9; Not Available [facility] 2 22:05:44 Dizzines s and giddines s 551750564 Completed 201710/13/2018 Problem Code: 780.4; Problem Code Type: ICD-9; Not Available [facility] 2 22:05:45 Focal oral mucinosi s 745576782 Completed 201708/19/2018 Problem Code: K13.79; Problem Code Type: ICD-10; Not Available [facility] 2 22:05:37 Lumbosac ral radiculo chalino 9634762 Active 2017 Problem Code: M54.16; Problem Code Type: ICD-10; Not Available [facility] 2 22:05:37 Disorder of oral soft tissues 81781513 Completed 201708/19/2018 Problem Code: 528.9; Problem Code Type: ICD-9; Not Available [facility] 2 22:05:44 Vitamin D deficien cy 70871177 Active 2017 Problem Code: E55.9; Problem Code Type: ICD-10; Not Available [facility] 2 22:05:35 Pain of intercos brandon space 180203790 Completed 201710/13/2018 Problem Code: R07.82; Problem Code Type: ICD-10; Not Available [facility] 2 22:05:38 Chest pain 24088020 Completed 201710/13/2018 Problem Code: 786.59; Problem Code Type: ICD-9; Not Available [facility] 2 22:05:45 Myositis 25159841 Completed 201810/25/2018 Problem Code: M60.9; Problem Code Type: ICD-10; Not Available [facility] 2 22:05:38 Fibromyo sitis 23755972 Completed 201810/25/2018 Problem Code: 729.1; Problem Code Type: ICD-9; Not Available [facility] 2 22:05:45 Nummular eczema 96175355 Completed 201808/01/2020 Problem Code: L30.0; Problem Code Type: ICD-10; Not Available [facility] 2 22:05:37 Screenin g mammogra phy Completed 201804/28/2019 Problem Code: Z12.31; Problem Code Type: ICD-10; ADY solano, [employer] 2 09:28:05 Bronchop neumonia 163692118 Completed 201804/28/2019 Problem Code: J18.0; Problem Code Type: ICD-10; Not Available [facility] 2 22:05:36 Abscess of abdomina l wall 45887979 Completed 201804/28/2019 Problem Code: L02.211; Problem Code Type: ICD-10; Not Available [facility] 2 22:05:37 Influenz a vaccine needed 22922715202 06 Completed 201804/28/2019 Problem Code: Z23; Problem Code Type: ICD-10; ADY solano, [employer] 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 2 09:28:05 Chemical pneumoni tis caused by anesthes ia 15425420319 834905 Completed 201807/02/2022 ADY READR null, [employer] 2 09:28:05 Influenz a vaccine needed 80181763818 06 Completed 201808/01/2020 Problem Code: Z23; Problem Code Type: ICD-10; ADY GOMESNEAR null, [employer] 2 09:28:05 General examinat ion of patient Active 2019 Not Available [facility] 2 22:05:38 Screenin g mammogra phy Completed 201907/02/2022 Problem Code: Z12.31; Problem Code Type: ICD-10; ADY GOMESNEAR null, [employer] 2 09:28:05 Acute frontal sinusiti s 73208501 Completed 201908/01/2020 Problem Code: J01.11; Problem Code Type: ICD-10; ADY GOMESNEAR null, [employer] 2 09:28:05 Screenin g mammogra phy Completed 201907/12/2020 Problem Code: Z12.31; Problem Code Type: ICD-10; ADY GOMESNEAR null, [employer] 2 09:28:05 Disorder of upper respirat ory system 262829708 Completed 201901/31/2021 Problem Code: J06.9; Problem Code Type: ICD-10; Not Available [facility] 2 22:05:36 Influenz a vaccine needed 75126086952 06 Completed 201908/01/2020 Problem Code: Z23; Problem Code Type: ICD-10; ADY MIREYANEAR null, [employer] 2 09:28:05 Viral pneumoni a 34311084 Completed 201907/02/2022 Problem Code: J12.89; Problem Code Type: ICD-10; ADY GOMESSTEFAN russ, [employer] 2 09:28:05 Acute sinusiti s 07231302 Completed 202007/02/2022 Problem Code: J01.90; Problem Code Type: ICD-10; ADY GOMESJOSEDulce solano, [employer] 2 09:28:05 Body mass index 30+ - obesity 664594437 Active 2020 Problem Code: Z68.34; Problem Code Type: ICD-10; Not Available [facility] 2 22:05:42 Low back pain 177056358 Completed 202007/02/2022 Problem Code: M54.5; Problem Code Type: ICD-10; ADY GOMESSTEFAN solano, [employer] 2 09:28:05 Acute bronchit is 14475611 Completed 202007/02/2022 Problem Code: J20.9; Problem Code Type: ICD-10; ADY GOMESSTEFAN russ, [employer] 2 09:28:05 Influenz a vaccine needed 45980583126 06 Completed 202007/02/2022 Problem Code: Z23; Problem Code Type: ICD-10; ADY MYSTEFAN null, [employer] 2 09:28:05 Abscess of limb 493940851 Completed 202107/02/2022 Problem Code: L02.415; Problem Code Type: ICD-10; ADY MYSTEFAN null, [employer] 2 09:28:05 Radiculo chalino due to lumbar interver tebral disc disorder 42584544445 9105 Active 2023 Meli Gallardo, BOARD LINING MACHINE OPERATOR [address] [place] [address], [address] , [employer] 4 10:32:09 Essentia l hyperten gerber 57961366 Active 2024 Meli Gallardo APRN [address] [place] [address], [address] , [employer] 5 09:56:57 Hypothyr oidism 25487159 Active 2024 Meli Gallardo APRN [address] [place] [address], [address] , [employer] 5 16:14:59 COVID-19 119968257 Active 2024 Meli Gallardo APRN [address] [place] [address], [address] , [employer] 5 10:48:35 Notes:*Problem Name: Incompl ete rotator cuff tear or rupture of right shoulder, not specified as traumatic *Problem Status: Chronic *Comments: *Problem Code: M75.111 *Problem Code Type: ICD-10 *Note Date: 11/01/2021 Some problems listed in Documents: #[id number], #[id number] could not be added to this patient's chart. Please review these documents and add these problems to the patient's chart manually as needed. Problem Notes None recorded. Procedures Surgical History Date Name Laterality Status Provider Name and Address Organization Details Recorded Time 025 Most Recent Mammogram completed ADY BAIG [employer] 01/01/2025 08:24:08 024 implantation of insertable loop recorder completed Meli Gallardo APRN [address] [place] [address], [address], [employer] 05/20/2024 16:49:29 023 cardiac catheterization completed Meli Gallardo APRN [address] [place] [address], [address], [employer] 01/07/2023 14:35:31 019 screening colonoscopy completed Myra Laura [employer]. 12/17/2022 10:33:56 017 hysterectomy completed Not Available [facility] 06/12/2022 22:56:08 017 Date of Last Pap Smear completed ADY [employer] 07/02/2022 09:29:20 Gallbladder Surgery completed YOMI [facility] [employer] 07/02/2022 09:32:24 Carpal tunnel surgery completed ADY [facility] [employer] 07/02/2022 09:32:35 Hemorrhoidectomy completed ADY [facility] [employer] 07/02/2022 09:32:46 Knee arthroscopy/surgery completed ADY [employer] 07/02/2022 09:33:23 procedure on elbow completed ADY [employer] 07/02/2022 09:33:43 thyroidectomy completed ADY [employer] 07/02/2022 09:33:57 Imaging Results None recorded. Procedure Notes None recorded. Medical Equipment None Reported. Allergies Allergen ID Allergen Name Allergen Category Reaction Reaction Severity Criticality Documentation Date Start Date Code Code System Note Provider Name and Address Organization Details Recorded Time 63654 Product containin g penicilli n (product) medicatio n Not available Not available Not available 06/12/2022 54328 8001 SNOMED Myra Sarmientojorge [employer], [employer] 3 13:50:04 33733 Substance with sulfonami de structure and antibacte rial mechanism of action (substanc e) medicatio n Not available Not available Not available 06/12/2022 88964 8003 SNOMED Myra Sarmientojorge russ, [employer] 3 13:50:07 66279 Premarin medicatio n Not available Not available Not available 06/12/202258678 6 RxNorm Not Available [facility] 2 22:54:21 68041 morphine sulfate medicatio n Not available Not available Not available 06/12/2022 73065 RxNorm Not Available [facility] 2 22:54:22 66652 erythromy radha medicatio n Not available Not available Not available 06/12/2022 4053 RxNorm Not Available [facility] 2 22:54:22 97056 Zyrtec medicatio n Not available Not available Not available 06/12/2022 83769 RxNorm Not Available [facility] 2 22:54:22 03363 codeine medicatio n Not available Not available Not available 07/02/2022 2670 RxNorm ERENSTINA Rodas - [employer] 2 09:22:53 48868 codeine phosphate medicatio n Not available Not available Not available 09/06/20252007 2672 RxNorm Not Available [employer] - prod 5 10:08:20 39535 azithromy radha medicatio n rash Not available low 09/06/20252017 31961 RxNorm Not Available [employer] - prod 5 10:08:25 12187 cephalexi n medicatio n hives rash Not available Not available low 09/06/20252017 2231 RxNorm Not Available [employer] - prod 5 10:08:25 05603 morphine medicatio n palpitati ons Not available low 09/06/20252017 7052 RxNorm Hear t beat reall y fast Not Available [employer] - prod 5 10:08:25 61573 estrogens , conjugate d (HALF-WAY) medicatio n other Not available low 09/06/20252021 4099 RxNorm BLE numbn ess Not Available [employer] - prod 5 10:08:25 31281 cetirizin e medicatio n rash Not available low 09/06/20252017 99254 RxNorm Not Available [facility] [employer] External [employer] - prod 5 10:08:25 28985 penicilli n V Not available Not available Not available Not available 09/06/2025 7984 RxNorm unrec ogniz ed react ion (text : Adver se react ion to subst ance, code: 52725 0009) , moder ate (from exter nal sour e) Not Available [employer] - prod 10:18:25 85797 amoxicill in medicatio n rash Not available low 09/06/20252020 723 RxNorm Not Available [employer] - prod 10:18:30 96360 Product containin g estrogen receptor agonist (product) medicatio n other Not available low 09/06/20252014 30358 003 SNOMED numbn ess Not Available [employer] - prod 10:18:30 26928 penicilli n G Not available hives Not available high 09/06/20252024 7980 RxNorm Not Available [employer] - prod 10:18:30 93446 Product containin g 3-hydroxy -3-methyl glutaryl- coenzyme A reductase inhibitor (product) medicatio n hives rash Not available Not available high 09/06/20252024 51682 009 SNOMED Lyle kareem liver enzym es Not Available [employer] - prod 10:18:30 55409 sulfaceta mide medicatio n dyspnea hives rash Not available Not available Not available high 09/06/20252009 29348 RxNorm Not Available [employer] - External Data [...] t Available Ciprodex 0.3 %-0.1 % ear drops,ketih pension Instill 4 drop(s) in affected ear(s) [...] Available Not Available Not Available Dexcom G6 Instructor Of Sociology USE DIRECTED . active Not Available Not Available No t Available Dexcom G6 Transmitt er device USE DIRECTED active Not Available Not Available No t Available baclofen 5 mg tablet take 1 tablet (5 mg) by oral route 3 times per day 07/02 completed Not Available Not Available Not Available BD Martha 2nd Gen Pen Needle 32 gauge x USE TWICE DAILY WITH INSULIN active Not [...] Updated DateTime 5 154.94 cm 31.8 kg/m2 12579.9 6 g 98 [degF] 74 /min 94 % 135/70 mm[Hg] [employer] 5 08:23:39 Date Recorded Body height Body mass index (BMI) Body weight Body temperature Heart rate Oxygen saturation Systolic And Diastolic Provider Name and Address Organization Details Last Updated DateTime 5 154.94 cm 31.6 kg/m2 71058.9 3 g 97.6 [degF] 81 /min 94 % 107/59 mm[Hg] [employer] 5 15:24:52 Date Recorded Body height Body mass index (BMI) Body weight Body temperature Heart rate Oxygen saturation Systolic And Diastolic Provider Name and Address Organization Details Last Updated DateTime 5 154.94 cm 31.6 kg/m2 82314.3 6 g 98 [degF] 71 /min 95 % 105/31 mm[Hg] [employer] 5 09:41:33 Date Recorded Body height Body mass index (BMI) Body weight Body temperature Heart rate Oxygen saturation Systolic And Diastolic Provider Name and Address Organization Details Last Updated DateTime 5 154.94 cm 33.8 kg/m2 21247.0 3 g 98 [degF] 89 /min 93 % 136/93 mm[Hg] Elke Berger [employer]. 5 16:02:17 Date Recorded Body height Body mass index (BMI) Body weight Body temperature Heart rate Oxygen saturation Systolic And Diastolic Provider Name and Address Organization Details Last Updated DateTime 5 154.94 cm 33.8 kg/m2 03608.0 3 g 97.3 [degF] 105 /min 94 % 105/67 mm[Hg] ADY [employer] 5 10:19:50 Social History Question Answer Notes LastModified by Organizat ion Details LastModified Time Tobacco Smoking Status Never Smoker Myra solano [employer]. 11/12/2022 10:37:22 Do You Have An Advance [...] Do You Have A Medical Power Of Slurry Tank Tender? No Information not available 07/02/2022 What Was [...] quadrivalent, PF 3 completed Shantel Stack APRN [address] [place], [address], [employer] 07/08/2023 15:19:03 zoster recombinant 4 completed Meli Gallardo APRN [address] [place], [address], [employer] 03/22/2024 22:40:12 pneumococcal polysaccharide PPV23 4 completed Meli Gallardo, BOARD LINING MACHINE OPERATOR [address] [place], [place], [id number], [employer] 06/21/2024 15:45:20 Influenza, high-dose, trivalent, PF 4 completed Meli Gallardo, [employer]ARD [employer]ING MACHINE OPERATOR [address] [place], [address], [employer] 07/07/2024 16:31:15 COVID-19, mRNA, LNP-S, PF, 100 mcg/0.5mL dose or 50 mcg/0.25mL dose 1 completed ADY MYNEAR null, [employer] 10/09/2022 11:27:51 COVID-19, mRNA, LNP-S, PF, 100 mcg/0.5mL dose or 50 mcg/0.25mL dose 1 completed ADY MYNEAR null, [employer] 10/09/2022 11:27:51 Influenza, split virus, quadrivalent, preservative 8 completed ADY MYNEAR null, [employer] 10/09/2022 11:27:51 Influenza, split virus, trivalent, preservative 7 completed Not Available [facility] 11/04/2023 12:52:24 Hep A, adult 9 completed ADY MYNEAR null, [employer] 10/09/2022 11:27:52 Hep A, adult 9 completed Not Available [facility] 06/12/2022 23:57:18 Influenza, MDCK, quadrivalent, preservative 9 completed ADY MYNEAR null, [employer] 10/09/2022 11:27:52 Influenza, split virus, quadrivalent, preservative 0 completed ADY MYNEAR null, [employer] 10/09/2022 11:27:51 Influenza, recombinant, quadrivalent, PF 1 completed ADY MYNEAR null, [employer] 10/09/2022 11:27:51 Influenza, split virus, trivalent, preservative 0 completed ADY MYNEAR null, [employer] 10/09/2022 11:27:51 Influenza, split virus, trivalent, preservative 2 completed ADY MYNEAR null, [employer] 10/09/2022 11:27:51 Influenza, split virus, quadrivalent, PF 2 completed ADY MYNEAR null, [employer] 10/09/2022 11:27:52 Tdap 1 completed ADY MYNEAR null, [employer] 10/09/2022 11:27:52 COVID-19, mRNA, LNP-S, PF, 100 mcg/0.5mL dose or 50 mcg/0.25mL dose 1 completed ADY MYNEAR null, [employer] 10/09/2022 11:27:52 zoster recombinant 5 completed ADY MYNEAR null, [employer] 04/27/2025 10:52:09 Influenza, split virus, trivalent, PF 5 completed Judith Love null, [employer] 08/06/2025 17:13:28 Past Encounters Encounter ID Performer Location Encounter Start Date Encounter Closed Date Diagnosis/Indication Diagnosis SNOMED-CT Code Diagnosis ICD10 Code Diagnosis IMO Codes Diagnosis Note [id number] Meli Gallardo[address] [address] 06/29/2022 14:40:35 06/29/2022 14:59:07 Influenza vaccine needed 0791926567 106 Z23 [id number] Meli Gallardo [address] [address] 07/02/2022 08:52:51 07/02/2022 10:26:13 Pain of right knee region 0969043306 50187 M17.11 [id number] [place] [address] 10/09/2022 10:54:49 10/09/2022 12:29:50 Mononeuropathy due to type 2 diabetes mellitus 321339297 E11.41 Order Dexcom, Meds as below. DM diet, exercise and weight loss emphasized . [id number] Meli Gallardo [address] 0 11/12/2022 13:48:04 11/12/2022 14:37:27 Gastroesophageal reflux disease without esophagitis 807732007 K21.9 Severe nocturnal reflux with vomiting despite use of H2 cy and PPI. Mass of left breast 1224 143854 0681370 N63.20 Obtain dx mammo and left breast US. [id number] Meli Gallardo [address] 0 12/19/2022 07:49:40 12/19/2022 09:05:39 Adult health examination 673206910 Z00.00 BSE reviewed and recommende d . Reviewed calcium needs, exercise, and prevention of osteoporos is . Periodic colonoscop y screening recommende d . Reviewed normal menopause and menopausal symptoms . Mammogram recommende d yearly . Body mass index 30+ - obesity 812125726 Z68.34 Hearing loss 44091594 H9 1.93 [id number] [place] [id number] 01/07/2023 10:36:01 01/07/2023 12:01:44 Type 2 diabetes mellitus without complication 216992414 E11.9 Continue current medication s. COntinue ADA low carb diet, exercise and weight loss. Generalize d anxiety disorder 26865537 F41.1 Mixed hyperlipidemia 267 410303 E78.2 Vitamin D deficiency 347 04371 E55.9 Essential hypertension 85030777 I10 Hypothyroidism 81026999 E03.9 [id number] Meli Gallardo [place] [address] 04/10/2023 10:38:24 04/10/2023 12:01:16 Mononeuropathy due to type 2 diabetes mellitus 296473316 E11.41 Continue Dexcom, Meds as below. DM diet, exercise and weight loss emphasized . Has done well losing weight and reducing her A1c with Ozempic. [id number] [place] [address] 06/12/2023 10:28:38 06/12/2023 11:20:53 Diverticulitis of colon 727985440 K57.32 Finish all cipro and flagyl and start daily fiber regimen. Avoid all seeds and corn products. Colonoscop y is UTD. [id number] [place] [address] 07/08/2023 13:23:51 07/08/2023 14:30:19 Administration of influenza vaccine 43749077 Z23 [id number] [place] [address] 09/17/2023 08:08:51 09/17/2023 09:23:38 Mononeuropathy due to type 2 diabetes mellitus 648328146 E11.41 She could not tolerate GLP-1 Ozempic due to GI side effects. We Will restart Januvia. Vitamin D deficiency 347 45066 E55.9 Hypothyroidism 29594794 E03.9 Continue Synthroid. Insomnia 722001125 G47.0 0 Trazodone prn for sleep. Sleep hygiene and med use explained. [id number] [place] [address] 11/04/2023 12:51:24 11/04/2023 13:51:19 Acute upper respiratory infection 14651309 J06.9 Patient presented with symptoms of upper [...] to 2 weeks if symptoms not improving. [id number] [place] [address] 12/17/2023 07:59:37 12/17/2023 09:23:43 Renal disorder due to type 2 diabetes mellitus 695599190 E11.21 No med changes today. Low carb low fat diet and weight loss were encouraged . Keep Cardio and Neuro appts. Cerebrovas cular accident 935637592 I63.9 [id number] [place] [address] 03/18/2024 07:55:23 03/18/2024 09:29:22 Adult health examination 981351966 Z00.00 Patient presented to office today for [...] athy due to type 2 diabetes mellitus 214846282 E11.41 Vitamin D deficiency 347 14866 E55.9 Mixed hyperlipidemia 267 836668 E78.2 Continue statin and repatha Generalize d anxiety disorder 96248978 F41.1 Continue celexa and buspar. Benign ess ential hypertension 4491796 I10 Hypothyroidism 08555671 E03.9 Continue Synthroid. Active or passive immunization 107610701 Z23 [id number] [place] [address] 06/17/2024 08:09:40 06/17/2024 09:57:40 Mononeuropathy due to type 2 diabetes mellitus 904119006 E11.41 Increase Insulin to 50 units BID. Peripheral neuropathy due to type 2 diabetes mellitus 9555410667 107 E11.42 Active or passive immunization 759879363 Z23 [id number] Meli Gallardo [place] [address] 07/07/2024 16:00:06 07/07/2024 16:13:22 Administration of influenza vaccine 99414427 Z23 [id number] Meli Gallardo [place] [address] 07/08/2024 10:23:28 07/08/2024 10:53:45 Radiculopathy due to lumbar intervertebral disc disorder 5554250435 39158 M51.16 Chronic - Right leg radiation. Start trial low dose gabapentin at bedtime. She has failed other options and is not a surgical candidate. CRISTAL reviewed, UDS obtained. longterm controlled substance agreement signed. Risk vs benefit and potential side effects of medication discussed. [id number] Meli Gallardo APRN [place] [address] 10/14/2024 10:09:08 10/14/2024 11:27:03 Mononeuropathy due to type 2 diabetes mellitus 197080698 E11.41 Has reduced insulin requiremen ts, continue to hold ozempic in the post op period as directed. Gastrointe stinal hemorrhage 09197743 K92.2 Bleeding was due to internal hemorrhoid s and she is scheduled for banding in December. Continue to keep stools soft. Also recommende d she take a multivitam in daily, and increase her oral intake with liquid protein supplement s. We will recheck her H&H and today to follow-up on any anemia due to the bleeding. Acquired hypothyroidism 102392313 E03.9 Essential hypertension 37278436 I10 Hold lasix and may need to reduce amlodipine to 5 mg while her oral intake is poor postoperat ively. Body mass index 30+ - obesity 404560495 Z68.34 [id number] Meli Gallardo [address] [address] 10/20/2024 16:08:08 10/26/2024 13:45:24 Pain in left foot 1515616564 25030 M79.672 XR unclear as to new or old fracture of accessory ossicle. Was treated with colchicine and has not improved. She was placed in a walking boot in clinic and will RICE. She cannot take NSAIDS due to recent GI surgery. Will obtain CT Foot for more detailed imaging. She cannot have MRI due to bladder stimulator . [id number] Meli Gallardo [address] [address] 12/11/2024 13:20:15 12/11/2024 14:29:51 Dysuria 13838410 R30.0 Right flank pain 6726144 09 R10.9 Patient presents with a 2 [...] any new/concer litzy symptoms. Screening mammography 24 026768 Z12.31 [id number] Meli Gallardo [address] [address] 01/01/2025 08:04:12 01/01/2025 09:25:22 Adult health examination 229506699 Z00.00 Patient presented to office today for [...] athy due to type 2 diabetes mellitus 242192531 E11.41 Has reduced insulin requiremen ts, continue to hold ozempic in the post op period as directed. Lumbosacra l radiculopathy 5866282 M54.16 Cannot have MRI due to bladder stimulator . Cannot take nsaids due to recent hiatal repair. Cannot take steroids due to diabetes. Gabapentin trial was not effective. Body mass index 30+ - obesity 935140893 Z68.34 [id number] [place] [address] 04/13/2025 14:51:33 04/13/2025 15:29:05 Acute left otitis media 223925557 H66.92 [id number] Continue Flonase and antihistam ine. Complete anti course. [id number] [place] [address] 04/27/2025 08:52:48 04/27/2025 11:03:22 Mononeuropathy due to type 2 diabetes mellitus 824775620 E11.41 No med changes today. DM diet and increasing activity encouraged . Essential hypertension 21524383 I10 33209 Mixed hyperlipidemia 267 579965 E78.2 Continue statin and repatha Vitamin D deficiency 347 00697 E55.9 Generalize d anxiety disorder 69681345 F41.1 Continue celexa and buspar. Active immunization 3387 9002 Z23 58860859 [id number] [place] [address] 08/06/2025 15:47:16 08/09/2025 10:33:17 Mononeuropathy due to type 2 diabetes mellitus 466252734 E11.41 Increase 70/30 to 20 units BID. DM diet and increasing activity encouraged . Continue use of Dexcom, she is to update me on her glucose levels in 3 days for further insulin titration. Radiculopa thy due to lumbar intervertebral disc disorder 8527995164 07538 M51.16 Increase gabapentin to 600 mg TID and refill short course cristal keen reviewed. Keep PT and Neurosurge ry appts next week. Hypothyroidism 66074409 E03.9 17210403 TSH 17, T4 0.7 in ER on 08/02/25. Increase Synthroid to 150 mcg daily. Influenza vaccination given 9320483236 9109 Z23 98937513 [id number] Meli Gallardo[address] [address] 09/06/2025 10:01:34 09/06/2025 11:03:54 COVID-19 338459861 U07.0 [id number] We will exam both antiviral therapies and [...] Monreal Member ID Guarantor Name 09/06/2025 1 [facility] - DUAL ELIGIBLE (MEDICARE REPLACEMENT/A DVANTAGE - HMO) DARI Olvera [id number] April Olvera 09/06/2025 MEDIC[place]: [employer] - [facility] DARI Caruso Frbrian [id number] Aprli Frymsarika 09/06/2025 [place] [facility]ILL[facility] (MEDICAID) DARI Zieglerymsarika [id number] April Frymsarika 09/06/2025 2 [employer] [place] (MEDICAID HMO) April Caruso Frymsarika [id number] April Zieglerymsarika Notes Date Note Type Note Provider Name [...] in the HPI Meli Gallardo APRN [address] [place], [address], [facility] [employer] 01/01/2025 11:38:59 04/13/20 25 text/htm l [...] in the HPI Meli Gallardo APRN [address] [place], [address], [facility] [employer] 04/18/2025 17:25:12 04/27/20 25 text/htm l [...] vit D deficiency. Meli Gallardo APRN [address] [place], [address], [employer] 05/09/2025 18:53:41 08/06/20 25 text/htm l ROS as noted in the HPI Chief ComplaintLumbar back pain with radiation to big toe following L4-L5 lumbar discectomy surgery in January, chest pain and shortness of breath on August 02History of Present IllnessApril Olvera presents for follow-up of multiple medical [...] in the ER. Meli Gallardo APRN [address] [place], [address], [employer] 08/06/2025 18:02:19 09/06/20 25 text/htm l [...] in the HPI Meli Gallardo APRN [address] [facility], [place], [address], [facility] [employer] 09/06/2025 17:39:09 OBGyn Episode No OBEpisode recorded.
--- OUTSIDE RECORDS SUMMARY | 2025-10-01 20:14 | XMS_ITS | Encounter Summary ---
Author Organization Healthcare Address [address] [place] [address] Care Team Providers Care Nature Photographer Name Role Phone Meli Gallardo MIGUEL ANGEL Primary Care Provider [phone] Tito Sue MD Unavailable [phone] Encounter Details Date Type Department Care Team [...] How often do you attend chur or gnosticism services? Never 10/02/2024 Do you belong to any clubs o r organizations such as sabianist groups, unions, fraternal or athletic groups, or [...] Recorded Patient Health Questionnaire-2 Score 0 02/24/2024 [facility] - Occupational Stress Questionnaire Answer Date [...] time in the [facility], were you homeless or living in a long-term (including now)? No 05/18/2025 CAGE ASSESSMENT Answer [...] drink first t allison in the morning (EYE-INFORMATICS SCIENTIST) to steady your nerves or to get [...] documented as of this encounter Care Teams Nature Photographer Relationship Specialty Start Date End Date Meli Gallardo APRN 21417 PCP - General 02/17/21 Tito Sue MD [address] [facility] [address] [place] [address] Surgeon Neurosurgery 07/21/25 documented as of this encounter
[2025-10-01 20:15] LABS: Troponin I < 0.01 ng/ml (0.00-0.034)
--- OUTSIDE RECORDS SUMMARY | 2025-10-01 20:15 | XMS_ITS | Continuity of Care Document ---
Author Organization [place] - [place] [employer] [facility] Address [address] [place] [id number] Assessment Encounter Date Assessment Date Assessment LastModified [...] HbA1c (hemoglobin A1c), blood 2024 025 [email or web address] [facility], [address] [place] [address], [id number], 16:15:21 Referral None recorded. Procedures None recorded. Surgeries None recorded. Imaging None recorded. Medication Orders Ozempic 1 mg/dose (4 mg/3 mL) subcutaneou s pen injector 2024 025 [facility], [address] [place] [address], [id number], 17:20:25 Humulin 70/30 U-100 Insulin KwikPen 100 unit/mL subcutaneou s 2024 [facility], [address] [place] [address], [address], 17:20:27 levothyroxi ne 150 mcg tablet 2024 [facility], [address] [place] [address], [address], 17:20:26 gabapentin 600 mg tablet 2024 [facility], [address] [place] [address], [address], 17:20:25 hydrocodone 5 mg-acetamin ophen 325 mg tablet 2024 [facility], [address] [place] [address], [address], 17:20:27 Patient TargetsNo targets recorded. Patient InstructionsNo instructions recorded. Reason for Referral None Reported. Results Created Date Observation Date Name Description Value Unit Range Abnormal Flag Note LastModifiedBy Organization Detail LastModifiedTime 08/06/2008/06/2025 HbA1c (hemo globi n A1c), blood HbA1c 9.0 Not Available [address], [address], 08/06/2025 15:55:28 09/29/20 25 09/29/2025 XR, chest No observ ation record ed. [email or web address] [facility] [address], [place], [address], 09/29/2025 11:56:26 09/29/20 25 09/29/2025 CT, angio gram, chest , w/ contr ast No observ ation record ed. [email or web address] [facility] [address], [place], [address], 09/29/2025 14:05:25 09/29/20 25 09/29/2025 imagi ng/di agnos tic resul t No observ ation record ed. [email or web address] [facility] [address], [place], [place], [address], 10/01/2025 15:00:33 Result Notes None recorded. Problems Name Problem SNOMED Code Status Onset Date Resolution Date Notes Provider Name and Address Organization Details Recorded Time Wheezing 54722406 Completed 201609/11/2017 Problem Code: R06.2; Problem Code Type: ICD-10; Not Available [facility] 2 22:05:38 Gastroes ophageal reflux disease without esophagi tis 434682011 Completed 201610/30/2017 Not Available [facility] 2 22:05:37 Gastroes ophageal reflux disease 660394706 Completed 201601/31/2018 Problem Code: 530.81; Problem Code Type: ICD-9; Not Available [facility] 2 22:05:44 Influenz a 6693328 Completed 201710/30/2017 Problem Code: J10.1; Problem Code Type: ICD-10; Not Available [facility] 2 22:05:36 Acute bronchit is 40664270 Completed 201710/30/2017 Problem Code: J20.8; Problem Code Type: ICD-10; ADY solano [employer] 2 09:28:05 Influenz a with respirat ory manifest ation other than pneumoni a Completed 201710/30/2017 Problem Code: 487.1; Problem Code Type: ICD-9; Not Available [facility] 2 22:05:47 Breast neoplasm screenin g status 729728344 Completed 201712/29/2017 Problem Code: Z12.39; Problem Code Type: ICD-10; Not Available [facility] 2 22:05:39 Screenin g for malignan t neoplasm of breast Completed 201712/29/2017 Problem Code: V76.10; Problem Code Type: ICD-9; Not Available [facility] 2 22:05:46 Acute cystitis 74306813 Completed 201712/20/2017 Problem Code: N30.00; Problem Code Type: ICD-10; Not Available [facility] 2 22:05:38 Low back pain 753409311 Completed 201712/23/2017 Problem Code: M54.5; Problem Code Type: ICD-10; ADY solano [place] [employer] 2 09:28:05 Back problem 723172433 Completed 201712/23/2017 Problem Code: 724.8; Problem Code Type: ICD-9; Not Available [facility] 2 22:05:48 Plane wart 212341327 Completed 201704/01/2018 Problem Code: B07.8; Problem Code Type: ICD-10; Not Available [facility] 2 22:05:34 Atrophy of thyroid - acquired 477265875 Completed 201710/11/2018 Problem Code: E03.4; Problem Code Type: ICD-10; Not Available [facility] 2 22:05:34 Mixed hyperlip idemia 730803555 Active 2017 Problem Code: E78.2; Problem Code Type: ICD-10; Not Available [facility] 2 22:05:35 Generali zed anxiety disorder 02487227 Active 2017 Problem Code: F41.1; Problem Code Type: ICD-10; Not Available [facility] 22:05:35 Hyperten sive disorder 47135187 Completed 201705/05/2018 Problem Code: I10; Problem Code Type: ICD-10; Not Available [facility] 2 22:05:35 Acquired hypothyr oidism 270652036 Completed 201708/06/2018 Problem Code: 244.8; Problem Code Type: ICD-9; Not Available [facility] 22:05:42 Vergwynca vulgaris 50096043 Completed 201704/01/2018 Problem Code: 078.19; Problem Code Type: ICD-9; Not Available [facility] 22:05:43 Benign essentia l hyperten gerber 3535275 Active 2017 Problem Code: 401.1; Problem Code Type: ICD-9; Not Available [facility] 2 22:05:44 Vergwynca vulgaris 89292851 Completed 201704/05/2018 Problem Code: B07.9; Problem Code Type: ICD-10; Not Available [facility] 22:05:34 Acute sinusiti s 82444840 Completed 201704/09/2018 Problem Code: J01.90; Problem Code Type: ICD-10; ADY solano [employer]. 09:28:05 Otitis externa 4486856 Completed 201706/03/2018 Problem Code: H60.339; Problem Code Type: ICD-10; Not Available [facility] 22:05:35 Otitis externa of right ear 62879129733 31042 Completed 201710/13/2018 Problem Code: H60.331; Problem Code Type: ICD-10; Not Available [facility] 22:05:35 Acute swimmer' s ear Completed 201706/03/2018 Problem Code: 380.12; Problem Code Type: ICD-9; Not Available [facility] 2 22:05:44 Dizzines s and giddines s 788912054 Completed 201710/13/2018 Problem Code: 780.4; Problem Code Type: ICD-9; Not Available [facility] 22:05:45 Focal oral mucinosi s 513776558 Completed 201708/19/2018 Problem Code: K13.79; Problem Code Type: ICD-10; Not Available [facility] 2 22:05:37 Lumbosac ral radiculo chalino 6192286 Active 2017 Problem Code: M54.16; Problem Code Type: ICD-10; Not Available [facility] 2 22:05:37 Disorder of oral soft tissues 05789846 Completed 201708/19/2018 Problem Code: 528.9; Problem Code Type: ICD-9; Not Available [facility] 2 22:05:44 Vitamin D deficien cy 38750884 Active 2017 Problem Code: E55.9; Problem Code Type: ICD-10; Not Available [facility] 2 22:05:35 Pain of intercos brandon space 785769930 Completed 201710/13/2018 Problem Code: R07.82; Problem Code Type: ICD-10; Not Available [facility] 2 22:05:38 Chest pain 13075276 Completed 201710/13/2018 Problem Code: 786.59; Problem Code Type: ICD-9; Not Available [facility] 2 22:05:45 Myositis 84104734 Completed 201810/25/2018 Problem Code: M60.9; Problem Code Type: ICD-10; Not Available [facility] 2 22:05:38 Fibromyo sitis 34538368 Completed 201810/25/2018 Problem Code: 729.1; Problem Code Type: ICD-9; Not Available [facility] 2 22:05:45 Nummular eczema 50956554 Completed 201808/01/2020 Problem Code: L30.0; Problem Code Type: ICD-10; Not Available [facility] 2 22:05:37 Screenin g mammogra phy Completed 201804/28/2019 Problem Code: Z12.31; Problem Code Type: ICD-10; ADY solano [facility] [place] [employer] 2 09:28:05 Bronchop neumonia 710913438 Completed 201804/28/2019 Problem Code: J18.0; Problem Code Type: ICD-10; Not Available [facility] 2 22:05:36 Abscess of abdomina l wall 85622586 Completed 201804/28/2019 Problem Code: L02.211; Problem Code Type: ICD-10; Not Available [facility] 2 22:05:37 Influenz a vaccine needed 06276179457 06 Completed 201804/28/2019 Problem Code: Z23; Problem Code Type: ICD-10; ADY MIREYAJOSER null, [employer] 2 09:28:05 Divertic ulitis of gastroin testinal tract 655372357 Completed 201808/01/2020 Problem Code: K57.93; Problem Code Type: ICD-10; Not Available [facility] 2 22:05:37 Mononeur opathy due to type 2 diabetes mellitus 384878329 Active 2018 Problem Code: E11.41; Problem Code Type: ICD-10; Not Available [facility] 2 22:05:35 Acute frontal sinusiti s 96827330 Completed 201807/02/2022 Problem Code: J01.10; Problem Code Type: ICD-10; ADY MIREYANEAR null, [employer] 2 09:28:05 Chemical pneumoni tis caused by anesthes ia 78327945086 203685 Completed 201807/02/2022 ADY MIREYAJOSER null, [employer] 2 09:28:05 Influenz a vaccine needed 48011241035 06 Completed 201808/01/2020 Problem Code: Z23; Problem Code Type: ICD-10; ADY MYNEAR null, [employer] 2 09:28:05 General examinat ion of patient Active 2019 Not Available [facility] 2 22:05:38 Screenin g mammogra phy Completed 201907/02/2022 Problem Code: Z12.31; Problem Code Type: ICD-10; ADY MYNEAR null, [employer] 2 09:28:05 Acute frontal sinusiti s 36698507 Completed 201908/01/2020 Problem Code: J01.11; Problem Code Type: ICD-10; ADY MIREYASTEFAN null, [employer] 2 09:28:05 Screenin g mammogra phy Completed 201907/12/2020 Problem Code: Z12.31; Problem Code Type: ICD-10; ADY MIREYASTEFAN null, [employer]. 2 09:28:05 Disorder of upper respirat ory system 090417551 Completed 201901/31/2021 Problem Code: J06.9; Problem Code Type: ICD-10; Not Available [facility] 2 22:05:36 Influenz a vaccine needed 89951082500 06 Completed 201908/01/2020 Problem Code: Z23; Problem Code Type: ICD-10; ADY MIREYASTEFAN null, [employer]. 2 09:28:05 Viral pneumoni a 06302596 Completed 201907/02/2022 Problem Code: J12.89; Problem Code Type: ICD-10; ADY MIREYASTEFAN null, [employer]. 2 09:28:05 Acute sinusiti s 73657968 Completed 202007/02/2022 Problem Code: J01.90; Problem Code Type: ICD-10; ADY MIREYASTEFAN null, [employer]. 2 09:28:05 Body mass index 30+ - obesity 633952158 Active 2020 Problem Code: Z68.34; Problem Code Type: ICD-10; Not Available [facility] 2 22:05:42 Low back pain 460059590 Completed 202007/02/2022 Problem Code: M54.5; Problem Code Type: ICD-10; ADY BAIG null, [employer] 2 09:28:05 Acute bronchit is 70342476 Completed 202007/02/2022 Problem Code: J20.9; Problem Code Type: ICD-10; ADY solano, [employer] 2 09:28:05 Influenz a vaccine needed 51381255459 06 Completed 202007/02/2022 Problem Code: Z23; Problem Code Type: ICD-10; ADY solano, [employer] 2 09:28:05 Abscess of limb 928234925 Completed 202107/02/2022 Problem Code: L02.415; Problem Code Type: ICD-10; ADY solano, [employer] 2 09:28:05 Radiculo chalino due to lumbar interver tebral disc disorder 41218391344 9105 Active 2023 Meli Gallardo APRN [address] [place] [address], [address] [place] [address] , [employer] 4 10:32:09 Essentia l hyperten gerber 91088102 Active 2024 Meli Gallardo APRN [address] [place] [address], [address] [place] [address] , [employer] 5 09:56:57 Hypothyr oidism 53483011 Active 2024 Meli Gallardo APRN [address] [place] [address], [address] [place] [address] , [employer] 5 16:14:59 COVID-19 179308537 Active 2024 Meli Gallardo APRN [address] [place] [address], [address] [place] [address] , [employer] 5 10:48:35 Notes:*Problem Name: Incompl ete rotator cuff tear or rupture of right shoulder, not specified as traumatic *Problem Status: Chronic *Comments: *Problem Code: M75.111 *Problem Code Type: ICD-10 *Note Date: 11/01/2021 Some problems listed in Documents: #[id number], #[id number] could not be added to this patient's chart. Please review these documents and add these problems to the patient's chart manually as needed. Problem Notes None recorded. Procedures Surgical History Date Name Laterality Status Provider Name and Address Organization Details Recorded Time 025 Most Recent Mammogram completed ADY [employer] 01/01/2025 08:24:08 024 implantation of insertable loop recorder completed Meli Gallardo APRN [address] [place] [address], [address], [employer] 05/20/2024 16:49:29 023 cardiac catheterization completed Meli Gallardo APRN [address] [place], [address], [employer] 01/07/2023 14:35:31 019 screening colonoscopy completed Myra Laura [employer] 12/17/2022 10:33:56 017 hysterectomy completed Not Available [facility] 06/12/2022 22:56:08 017 Date of Last Pap Smear completed ADY [employer] 07/02/2022 09:29:20 Gallbladder Surgery completed YOMI A [employer] 07/02/2022 09:32:24 Carpal tunnel surgery completed [employer] 07/02/2022 09:32:35 Hemorrhoidectomy completed [employer] 07/02/2022 09:32:46 Knee arthroscopy/surgery completed [employer] 07/02/2022 09:33:23 procedure on elbow completed [employer] 07/02/2022 09:33:43 thyroidectomy completed [employer] 07/02/2022 09:33:57 Imaging Results None recorded. Procedure Notes None recorded. Medical Equipment None Reported. Allergies Allergen ID Allergen Name Allergen Category Reaction Reaction Severity Criticality Documentation Date Start Date Code Code System Note Provider Name and Address Organization Details Recorded Time 92114 Product containin g penicilli n (product) medicatio n Not available Not available Not available 06/12/2022 86198 8001 SNOMED Myra Torstenall null, [employer] 3 13:50:04 74982 Substance with sulfonami de structure and antibacte rial mechanism of action (substanc e) medicatio n Not available Not available Not available 06/12/2022 69339 8003 SNOMED Myra Torstenall null, [employer] 3 13:50:07 53311 Premarin medicatio n Not available Not available Not available 06/12/2022 77335 6 RxNorm Not Available [facility] 2 22:54:21 96783 morphine sulfate medicatio n Not available Not available Not available 06/12/2022 83359 RxNorm Not Available [facility] 2 22:54:22 22817 erythromy radha medicatio n Not available Not available Not available 06/12/2022 4053 RxNorm Not Available [facility] 2 22:54:22 51163 Zyrtec medicatio n Not available Not available Not available 06/12/2022 71621 RxNorm Not Available [facility] 2 22:54:22 16581 codeine medicatio n Not available Not available Not available 07/02/2022 2670 RxNorm ADY MYNEAR null, [employer] 2 09:22:53 08633 codeine phosphate medicatio n Not available Not available Not available 09/06/20252007 2672 RxNorm Not Available [employer] - prod 5 10:08:20 81517 azithromy radha medicatio n rash Not available low 09/06/20252017 52680 RxNorm Not Available [employer] - prod 5 10:08:25 41755 cephalexi n medicatio n hives rash Not available Not available low 09/06/20252017 2231 RxNorm Not Available [employer] - prod 5 10:08:25 28943 morphine medicatio n palpitati ons Not available low 09/06/20252017 7052 RxNorm Hear t beat reall y fast Not Available [employer] - prod 5 10:08:25 95991 estrogens , conjugate d (SENIOR CARE) medicatio n other Not available low 09/06/20252021 4099 RxNorm BLE numbn ess Not Available [employer] - prod 5 10:08:25 78893 cetirizin e medicatio n rash Not available low 09/06/20252017 01138 RxNorm Not Available [employer] - prod 5 10:08:25 51786 penicilli n V Not available Not available Not available Not available 09/06/2025 7984 RxNorm unrec ogniz ed react ion (text : Adver se react ion to subst ance, code: 60953 0009) , moder ate (from exter nal sourc e) Not Available [employer] - prod 5 10:18:25 90740 amoxicill in medicatio n rash Not available low 09/06/20252020 723 RxNorm Not Available [employer] - prod 5 10:18:30 16136 Product containin g estrogen receptor agonist (product) medicatio n other Not available low 09/06/20252014 94254 003 SNOMED numbn ess Not Available [employer] - prod 5 10:18:30 27987 penicilli n G Not available hives Not available high 09/06/20252024 7980 RxNorm Not Available [employer] - prod 5 10:18:30 11681 Product containin g 3-hydroxy -3-methyl glutaryl- coenzyme A reductase inhibitor (product) medicatio n hives rash Not available Not available high 09/06/20252024 96795 009 SNOMED Macon kareem liver enzym es Not Available [employer] - [employer] - prod 10:18:30 80593 sulfaceta mide medicatio n dyspnea hives rash Not available Not available Not available high 09/06/20252009 30495 RxNorm Not Available [employer] - [employer] - prod 10:18:30 [...] Available Not Available Not Available Dexcom G6 Provider Relations Advocate USE DIRECTED . active Not Available Not [...] Updated DateTime 5 154.94 cm 33.8 kg/m2 37942.0 3 g 98 [degF] 89 /min 93 % 136/93 mm[Hg] Elke Berger [employer] 5 16:02:17 Social History Question Answer Notes LastModified by Organizat ion Details LastModified Time Tobacco Smoking Status Never Smoker Myra solano [employer] 11/12/2022 10:37:22 Do You Have An [...] Do You Have A Medical Power Of Oceanographer Geological? No Information not available 07/02/2022 What Was [...] available 07/02/2022 Do You Participate In Social [employer]? No Information not available 07/02/2022 Do You [...] quadrivalent, PF 3 completed Shantel Stack APRN [address] [place] [address], [address], [employer] 07/08/2023 15:19:03 zoster recombinant 4 completed Meli Gallardo APRN [address] [place] [address], [id number], [employer] 03/22/2024 22:40:12 pneumococcal polysaccharide PPV23 4 completed Meli Gallardo APRN [address] [place], [address], [employer] 06/21/2024 15:45:20 Influenza, high-dose, trivalent, PF 4 completed Meli Gallardo APRN [address] [place], [address], [employer] 07/07/2024 16:31:15 COVID-19, mRNA, LNP-S, PF, 100 mcg/0.5mL dose or 50 mcg/0.25mL dose 1 completed ADY MYNEAR null, [employer] 10/09/2022 11:27:51 COVID-19, mRNA, LNP-S, PF, 100 mcg/0.5mL dose or 50 mcg/0.25mL dose 1 completed ADY MYNEAR null, [employer] 10/09/2022 11:27:51 Influenza, split virus, quadrivalent, preservative 8 completed ADY MYNEAR null, [employer] 10/09/2022 11:27:51 Influenza, split virus, trivalent, preservative 7 completed Not Available [facility] 11/04/2023 12:52:24 Hep A, adult 9 completed ADY MYNEAR null, [employer] 10/09/2022 11:27:52 Hep A, adult 9 completed Not Available [facility] 06/12/2022 23:57:18 Influenza, MDCK, quadrivalent, preservative 9 completed ADY MYNEAR null, [employer] 10/09/2022 11:27:52 Influenza, split virus, quadrivalent, preservative 0 completed ADY MYNEAR null, [employer] 10/09/2022 11:27:51 Influenza, recombinant, quadrivalent, PF 1 completed ADY MYNEAR null, [employer] 10/09/2022 11:27:51 Influenza, split virus, trivalent, preservative 0 completed ADY MYNEAR null, [employer] 10/09/2022 11:27:51 Influenza, split virus, trivalent, preservative 2 completed ADY MYNEAR null, [employer] 10/09/2022 11:27:51 Influenza, split virus, quadrivalent, PF 2 completed ADY MYNEAR null, [employer] 10/09/2022 11:27:52 Tdap 1 completed ADY MYNEAR null, [employer] 10/09/2022 11:27:52 COVID-19, mRNA, LNP-S, PF, 100 mcg/0.5mL dose or 50 mcg/0.25mL dose 1 completed ADY MYNEAR null, [employer] 10/09/2022 11:27:52 zoster recombinant 5 completed ADY MYNEAR null, [employer] 04/27/2025 10:52:09 Influenza, split virus, trivalent, PF 5 completed Judith Love null, [employer] 08/06/2025 17:13:28 Past Encounters Encounter ID Performer Location Encounter Start Date Encounter Closed Date Diagnosis/Indication Diagnosis SNOMED-CT Code Diagnosis ICD10 Code Diagnosis IMO Codes Diagnosis Note [id number] Meli Gallardo INTERNATIONAL ACCOUNT EXECUTIVE [place] [phone] 08/06/2025 15:47:16 08/09/2025 10:33:17 Mononeuropathy due to type 2 diabetes mellitus 465575773 E11.41 Increase 70/30 to 20 units BID. DM diet and increasing activity encouraged . Continue use of Dexcom, she is to update me on her glucose levels in 3 days for further insulin titration. Radiculopa thy due to lumbar intervertebral disc disorder 0831011320 65669 M51.16 Increase gabapentin to 600 mg TID and refill short course lortabjoan reviewed. Keep PT and Neurosurge ry appts next week. Hypothyroidism 01841661 E03.9 [id number] TSH 17, T4 0.7 in ER on 08/02/25. Increase Synthroid to 150 mcg daily. Influenza vaccination given 1142556113 9109 Z23 [id number] Health Concerns Section Related Observation LastModified by Organization Detai ls LastModified Time None Recorded Concern Status LastModified by Organization Details LastModified Time None Recorded Payers Encounter Date Sequence Insurance Name Policy Number Policy Monreal Covered Member ID Monreal Member ID Guarantor Name 08/06/2025 2 [employer] [place] (MEDICAID HMO) April Olvera [id number] April Olvera 08/06/2025 1 [facility] - DUAL ELIGIBLE (MEDICARE REPLACEMENT/A DVANTAGE - HMO) DARI Olvera [id number] April Olvera Notes Date Note Type Note [...] that date in the ER. Meli Gallardo, INTERNATIONAL ACCOUNT EXECUTIVE [address] [place], [address], [facility] [employer] 08/06/2025 18:02:19 OBGyn Episode No OBEpisode recorded.
--- OUTSIDE RECORDS SUMMARY | 2025-10-01 20:15 | XMS_ITS | Clinical Summary ---
Author Organization [facility] , [facility] Address [address] [place] [address] Phone Care Team Providers Care Salesperson Women'S Hats Name Role Phone Meli Gallardo APRN Unavailable [phone] Roselyn MCKEON, Tyler Yadav Unavailable [phone] Reason for Referral 07/25/2022 Encounter for Follow Up Date Recorded Target Due Date Referral Type Referring Prov ider Reason For Referral 07/25/2022 Tyler boyd MD referral to physician Last Documented On 2 7:59AM ; [facility], [facility] Reason for Visit and Chief Complaint The Chief Complaint is: Right Knee Pain Problems Includes: Problems addressed during this encounter and other active Problems All Visits Onset Date Date of Diagnosis Resolved Date Provider Condition Status Joint Pain Knee 07/11/2022 07/11/2022 Tyler Dempsey MD Active Last Documented On 5 1:41AM ; [facility], [facility] Plan of Treatment Pending Tests Order Diagnosis Results Due Ordering Leif khan Radiology - CT Scan Knee 07/25/22 Tyler Dempsey MD Last Documented On 2 10:33AM ; [facility], [facility] Instructions to patient Lose weight Last Documented On 2 7:59AM ; [facility], [facility] Assessments Includes: Assessments from this encounter [...] some intermittent catching. 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 She reports today that the knee is still having daily pain that affects her quality of life. - Last Documented On 07/25/2022 9:21AM ; [facility], [facility] PHYSICAL EXAM - Last Documented On 07/25/2022 9:21AM ; [facility] CONSTITUTIONAL: Well developed, well groomed, well nourished patient in no acute distress who appears stated age, height and weight. - Last Documented On 07/25/2022 9:21AM ; [facility] PSYCHIATRIC: The patient is alert and oriented to person, place, date and situation. Mood and affect are normal for current situation. - Last Documented On 07/25/2022 9:21AM ; [facility] NEUROLOGICAL: Sensation normal bilateral upper and lower extremities. - Last Documented On 07/25/2022 9:21AM ; [facility] LYMPHATIC: No pitting edema noted in the lower extremities. - Last Documented On 07/25/2022 9:21AM ; [facility] SKIN: No lesions noted on upper or lower extremities. Skin is dry, warm and with normal turgor. - Last Documented On 07/25/2022 9:21AM ; [facility] VASCULAR: No swelling in upper or lower extremities other than described below in extremity exam. Dorsalis Pedis Pulses normal in lower extremities. - Last Documented On 07/25/2022 9:21AM ; [facility] GAIT AND STATION: slightly antalgic gait without assistive devices. Station normal. - Last Documented On 07/25/2022 9:21AM ; [facility] LEFT KNEE: No Deformity. Normal Q angle. [...] Negative patella apprehension. - Last Documented On 07/25/2022 9:21AM ; [facility] RIGHT KNEE: No Deformity. Normal Q [...] Negative patella apprehension. - Last Documented On 07/25/2022 9:21AM ; [facility] ASSESSMENT AND PLAN - Last Documented On 07/25/2022 9:21AM ; [facility] Patient here today for follow up visit with me for pain in the right knee. 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 We discussed treatment plans moving forward including conservative measures with activity modification, injections and therapy. She has tried and failed all conservative measures mentioned at this point. We also discussed moving forward with a Right knee arthroscopy with partial medial and lateral meniscectomy. We discussed the surgery today along with recovery time and risk and benefits of surgery including but not limited bleeding, infection, injury to surrounding structures such as blood vessels tendons and nerves. We discussed the possibility of surgical procedure failure, persistent pain, loss of motion, persistent stiffness, persistent weakness, and the need for a revision surgery. In addition, we discussed the risk of heart attack, stroke, or .patient understands these as well as alternative forms of treatment and does wish to proceed. We will get this scheduled in the near future and will see her back for normal routine post op care. - Last Documented On 07/25/2022 9:21AM ; [facility], [facility] Instructions Includes: Instructions from this encounter Instructions to patient Lose weight Last Documented On 7:59AM ; [facility], [facility] Medical Equipment - Implanted Devices Includes: Current Devices No Medical Equipment Recorded Medications Includes: Medications discussed during this encounter and other current Medications Current Medications (continue as prescribed) Carvedilol 25 MG Oral Tablet 07/11/2022 Provider: Diagnosis: Last Documented On 9:51AM By Arleen Carias ; [facility], [facility] HumaLOG Mix 75/25 KwikPen (7 5-25) 100 UNIT/ML Subcutaneous Suspension Pen-injector 07/09/2022 Provider: Israel Gallardo APRN Diagnosis: Last Documented On 9:51AM By Arleen Carias ; [facility], [facility] Clopidogrel Bisulfate 75 MG Oral Tablet 07/04/2022 Leif khan: FRANCISCO JOSEPH MD Diagnosis: Last Documented On 9:51AM By Arleen Carias ; [facility], [facility] Fluticasone Propionate 50 MC G/ACT Nasal Suspension 07/04/2022 Provider: Meli Gallardo APRN Diagnosis: Last Documented On 9:51AM By Arleen Coyne [facility], [facility] busPIRone HCl 10 MG Oral Tablet 06/26/2022 Provider: Meli Gallardo APRN Diagnosis: Last Documented On 9:51AM By Arleen Coyne [facility], [facility] Citalopram Hydrobromide 40 MG Oral Tablet 05/25/2022 Provider: Meli Gallardo APRN Diagnosis: Last Documented On 9:51AM By Arleen Carias ; [facility], [facility] Jardiance 25 MG Oral Tablet 05/15/2022 Provider: Meli Gallardo APRN Diagnosis: Last Documented On 2 9:51AM By Arleen Carias ; [facility] amLODIPine Besylate 10 MG Oral Tablet 04/12/2022 Pro vider: FRANCISCO JOSEPH MD Diagnosis: Last Documented On 2 9:51AM By Arleen Carias ; [facility] Past Medications on file oxyCODONE HCl 5 MG Oral Tablet 08/20/2022 - 08/22/2022 Provider: Tyler Dempsey MD Diagnosis: 1-2 p o q 6-8h Last Documented On 2 7:40AM By Tyler Dempsey M.D. ; [facility] Ondansetron HCl 4 MG Oral Tablet 08/20/2022 - 09/01/2022 Provider: Tyler Dempsey MD Diagnosis: 1 po q 6h prn nausea Last Documented On 2 7:40AM By Tyler Dempsey M.D. ; [facility] Adult Aspirin Regimen 81 MG Oral Tablet Delayed Release 08/20/2022 - 09/03/2022 Provider: Tyler Madera MD Diagnosis: once a day Last Documented On 2 7:40AM By Tyler Dempsey M.D. ; [facility] Medications Administered Includes: Administered Medications from this encounter No Administered Medications Recorded Vital Signs Includes: Vital Signs from this encounter Vital Name 07/25/2022 08:18A Blood Pressure Sitting (mmHg) 127/80 Pulse Rate-Sitting (bpm) 71 Height (in) 61 Weight (lb) 182 Body Mass Index (kg/m2) 34.4 Body Surface Area (m2) 1.8 Note: snb Last Documented: On 07/25/2022 8:19AM ; [facility] Results Includes: Results discussed during this [...] Tobacco non-user 07/11/2022 Last Documented On 2 7:59AM ; [facility], [facility] No caffeine use 07/11/2022 Last Documented On 2 7:59AM ; [facility] No recent change in diet 07/11/2022 Last Documented On 2 7:59AM ; [facility] Not a current smoker. 07/11/2022 Last Documented On 2 7:59AM ; [facility], [facility] Not exercising regularly 07/11/2022 Last Documented On 2 7:59AM ; [facility] Not using alcohol 07/11/2022 Last Documented On 2 7:59AM ; [facility], [facility] Not using drugs 07/11/2022 Last Documented On 2 7:59AM ; [facility], [facility] Sex - Female 09/13/2022 Last Documented On 2 4:34PM ; [facility] Smoking Status Unknown Procedures and Surgical History Includes: Procedures from this encounter Procedures Code Diagnosis Performing Provider Service L ocation Service Date use of tobacco assessment performed 1000F Last Documented On 2 7:59AM ; [facility], [facility] follow-up visit in one month Last Documented On 2 7:59AM ; [facility], [facility] referral to physician Last Documented On 2 7:59AM ; [facility], [facility] an X-ray was performed 95135 Last Documented On 2 7:59AM ; [facility], [facility] Surgical History Last Updated History of back surgery 07/11/2022 Last Documented On 2 7:59AM ; [facility], [facility] History of History of Gallbladder 2021 Last Documented On 2 7:59AM ; [facility] History of hysterectomy 07/11/2022 Last Documented On 2 7:59AM ; [facility], [facility] History of shoulder arthroplasty 022 Last Documented On 2 7:59AM ; [facility], [facility] Medical History Includes: Medical History addressed during this encounter Description Last Updated History of arthritis 07/11/2022 Last Documented On 2 7:59AM ; [facility] History of diabetes mellitus 07/11/2022 Last Documented On 2 7:59AM ; [facility] History of Heartburn / Acid Reflux 07/11 Last Documented On 2 7:59AM ; [facility] History of History of Heart Attack / Str jacob 07/11/2022 Last Documented On 2 7:59AM ; [facility] History of Hypertension 07/11/2022 Last Documented On 2 7:59AM ; [facility] History of Thyroid Disease 07/11/2022 Last Documented On 2 7:59AM ; [facility], [facility] Recent immunization for flu 07/06/2022 Last Documented On 2 7:59AM ; [facility], [facility] Recent immunization for pneumococcal pne umonia 201907/11/2022 Last Documented On 2 7:59AM ; [facility], [facility] Family History Includes: Family History addressed during this encounter Description Last Updated Diabetes mellitus 07/11/2022 Last Documented On 2 7:59AM ; [facility], [facility] Family history of cancer 07/11/2022 Last Documented On 2 7:59AM ; [facility], [facility] Family history of heart disease 07/11/20 22 Last Documented On 2 7:59AM ; [facility], [facility] Family history of systemic hypertension 07/11/2022 Last Documented On 2 7:59AM ; [facility], [facility] Review of Systems Includes: Review of [...] and Immunologic: Complaint of seasonal allergic reaction. reviewed 07/25/22 Mental Status Includes: Mental Status from this encounter Description Anxiety Last Documented On 2 7:59AM ; [facility], [facility] Physical Exam Includes: Physical Exam from this encounter Allergies Includes: Active Allergies Substance Type Reaction Onset Date Resolved Date Statu s Sulfac Allergy 08/31/2008 Active Last Documented On 2 7:59AM ; [facility], [facility] Penicillins Allergy 08/31/2008 Active Last Documented On 2 7:59AM ; [facility], [facility] Morphine Derivatives Allergy 08/31/2008 Active Last Documented On 2 7:59AM ; [facility], [facility] Keflex Allergy 08/31/2008 Active Last Documented On 2 7:59AM ; [facility], [facility] Erythromycin Allergy 08/31/2008 Active Last Documented On 2 7:59AM ; [facility], [facility] Codeine Phosphate Allergy 08/31/2008 A ctive Last Documented On 2 7:59AM ; [facility], [facility] Care Salesperson Women'S Hats Name (Identifier) Role/Relation Location/Telecom Last Documented By Meli Gallardo APRN ([id number]) [address] [place] [address], , [id number] tel: Last Documented On 07/11/2022 10:08AM ; [facility], [facility] Tyler Dempsey MD ([id number]) Assigned practitioner (occupation) [address] [place] [address], , [phone] tel: Last Documented On 09/13/2022 4:34PM ; [facility] Encounters Encounter Provider Location (Healthcare Service Location) Date Check-In Time Check-Out Time Diagnosis Encounter Disposition Follow Up Tyler Dempsey MD [facility] 2021 7:49AM 9:18AM Payer Includes: Active Insurance Policies Plan Name (Payer ID) Coverage Type Member ID Group # Subscriber (ID) Relationship Effective Dates 1 - [facility] ([id number]) [id number] GABE OVLERA Self 10/07/2019 - Unknown Last Documented On 2 8:43AM ; [facility]
--- OUTSIDE RECORDS SUMMARY | 2025-10-01 20:15 | XMS_ITS | Clinical Summary ---
Author Organization [facility] , [facility] Address [address] [place] [address] Phone Care Team Providers Care Mobile Homes Repairer Name Role Phone Meli Gallardo APRN Unavailable [phone] Roselyn MCKEON, Tyler Yadav Unavailable [phone] Reason for Referral 09/04/2022 Encounter for Post Op Date Recorded Target Due Date Referral Type Referring Prov ider Reason For Referral 09/04/2022 Tyler boyd MD referral to physician Last Documented On 2 3:01PM ; [facility], [facility] Reason for Visit and Chief Complaint The Chief Complaint is: Right Knee Pain Problems Includes: Problems addressed during this encounter and other active Problems All Visits Onset Date Date of Diagnosis Resolved Date Provider Condition Status Joint Pain Knee 07/11/2022 07/11/2022 Tyler Dempsey MD Active Last Documented On 5 1:41AM ; [facility], [facility] Plan of Treatment Pending Tests Order Diagnosis Results Due Ordering Leif khan Radiology - CT Scan Knee 07/25/22 Tyler Dempsey MD Last Documented On 2 10:33AM ; [facility], [facility] Instructions to patient Lose weight Last Documented On 2 3:01PM ; [facility], [facility] Assessments Includes: Assessments from this encounter Findings 62 year old here for first post op visit status post right knee arthroscopy with partial medial and lateral meniscectomy. Date of surgery 08/20/22. She reports that she is doing great. She has discontinued physical therapy and is working self directed on ROM and strength building. Surgical photos are gone over today in office. - Last Documented On 09/04/2022 4:48PM ; [facility], [facility] PHYSICAL EXAM - Last Documented On 09/04/2022 4:48PM ; [facility], [facility] Well-appearing 62 YEAR OLD in no acute distress. - Last Documented On 09/04/2022 4:48PM ; [facility], [facility] Evaluation of the RIGHT lower extremity: Incisions are healing well no evidence of infection. Sutures been removed and Steri-Strips placed. There is no evidence of surrounding erythema, warmth, induration, fluctuance, or wound dehiscence. Range of motion is from 0-125 of flexion. There is minimal tenderness along the medial and lateral joint line. Knee is stable to varus and valgus stress as well as anterior and posterior drawer. Able to do a straight leg raise with good quad activation. Sensation intact in the saphenous, sural, deep peroneal, superficial peroneal, and tibial distribution. Able to fire EHL, FHL, gastroc, soleus, peroneals, and tibialis anterior. Warm and well-perfused distally. - Last Documented On 09/04/2022 4:48PM ; [facility], [facility] ASSESSMENT AND PLAN- - Last Documented On 09/04/2022 4:48PM ; [facility], [facility] first post op visit status post right knee arthroscopy with partial medial and lateral meniscectomy. She is doing well and has discontinued PT. Moving forward she can build back into activity as she can tolerate and will continue to work self directed on therapy exercises. She will follow up with me as needed with any issues or concerns. - Last Documented On 09/04/2022 4:48PM ; [facility], [facility] Instructions Includes: Instructions from this encounter Instructions to patient Lose weight Last Documented On 2 3:01PM ; [facility], [facility] Medical Equipment - Implanted Devices Includes: Current Devices No Medical Equipment Recorded Medications Includes: Medications discussed during this encounter and other current Medications Current Medications (continue as prescribed) Carvedilol 25 MG Oral Tablet 07/11/2022 Provider: Diagnosis: Last Documented On 2 9:51AM By Arleen Carias ; [facility], [facility] HumaLOG Mix 75/25 KwikPen (7 5-25) 100 UNIT/ML Subcutaneous Suspension Pen-injector 07/09/2022 Provider: Israel Gallardo APRN Diagnosis: Last Documented On 2 9:51AM By Arleen Carias ; [facility], [facility] Clopidogrel Bisulfate 75 MG Oral Tablet 07/04/2022 P rovider: FRANCISCO JOSEPH MD Diagnosis: Last Documented On 2 9:51AM By Arleen Carias ; [facility], [facility] Fluticasone Propionate 50 MC G/ACT Nasal Suspension 07/04/2022 Provider: Meli Gallardo APRN Diagnosis: Last Documented On 2 9:51AM By Arleen Carias ; [facility], [facility] busPIRone HCl 10 MG Oral Tablet 06/26/2022 Provider: Meli Gallardo APRN Diagnosis: Last Documented On 2 9:51AM By Arleen Carias ; [facility], [facility] Citalopram Hydrobromide 40 MG Oral Tablet 05/25/2022 Provider: Meli Gallardo APRN Diagnosis: Last Documented On 2 9:51AM By Arleen Carias ; [facility], [facility] Jardiance 25 MG Oral Tablet 05/15/2022 Provider: Meli Gallardo APRN Diagnosis: Last Documented On 2 9:51AM By Arleen Carias ; [facility], [facility] amLODIPine Besylate 10 MG Oral Tablet 04/12/2022 Pro vider: FRANCISCO JOSEPH MD Diagnosis: Last Documented On 2 9:51AM By Arleen Carias ; [facility], [facility] Past Medications on file oxyCODONE HCl 5 MG Oral Tablet 08/20/2022 - 08/22/2022 Provider: Tyler Dempsey MD Diagnosis: 1-2 p o q 6-8h Last Documented On 2 7:40AM By Tyler Dempsey M.D. ; [facility], [facility] Ondansetron HCl 4 MG Oral Tablet 08/20/2022 - 09/01/2022 Provider: Tyler Dempsey MD Diagnosis: 1 po q 6h prn nausea Last Documented On 2 7:40AM By Tyler Dempsey M.D. ; [facility], [facility] Adult Aspirin Regimen 81 MG Oral Tablet Delayed Release 08/20/2022 - 09/03/2022 Provider: Tyler Madera MD Diagnosis: once a day Last Documented On 2 7:40AM By Tyler Dempsey M.D. ; [facility], [facility] Medications Administered Includes: Administered Medications from this encounter No Administered Medications Recorded Results Includes: Results discussed during this encounter No Results Recorded For Specified Dates History of Present Illness Includes: History of Present Illness from this encounter HPI GABE OLVERA is a 62 year old female. - Allergy list reviewed - Problem list reviewed - Medication list reviewed - Previous history of new onset pain 2020 - Sharp pain Symptoms - Stabbing - Patient pain level from 1-10: 7 - Yes, previous treatment. - History of Physical Therapy Social History Description Last Updated Tobacco non-user 07/11/2022 Last Documented On 2 3:01PM ; [facility] No caffeine use 07/11/2022 Last Documented On 2 3:01PM ; [facility] No recent change in diet 07/11/2022 Last Documented On 2 3:01PM ; [facility] Not a current smoker. 07/11/2022 Last Documented On 2 3:01PM ; [facility] Not exercising regularly 07/11/2022 Last Documented On 2 3:01PM ; [facility] Not using alcohol 07/11/2022 Last Documented On 2 3:01PM ; [facility] Not using drugs 07/11/2022 Last Documented On 2 3:01PM ; [facility] Sex - Female 09/13/2022 Last Documented On 2 4:34PM ; [facility] Smoking Status Unknown Procedures and Surgical History Includes: Procedures from this encounter Procedures Code Diagnosis Performing Provider Service L ocation Service Date use of tobacco assessment performed 1000F Last Documented On 2 3:01PM ; [facility], [facility] follow-up visit in one month Last Documented On 2 3:01PM ; [facility], [facility] referral to physician Last Documented On 2 3:01PM ; [facility], [facility] an X-ray was performed 35485 Last Documented On 2 3:01PM ; [facility], [facility] Surgical History Last Updated History of back surgery 07/11/2022 Last Documented On 2 3:01PM ; [facility], [facility] History of History of Gallbladder 2021 Last Documented On 2 3:01PM ; [facility], [facility] History of hysterectomy 07/11/2022 Last Documented On 2 3:01PM ; [facility], [facility] History of shoulder arthroplasty 022 Last Documented On 2 3:01PM ; [facility], [facility] Medical History Includes: Medical History addressed during this encounter Description Last Updated History of arthritis 07/11/2022 Last Documented On 2 3:01PM ; [facility], [facility] History of diabetes mellitus 07/11/2022 Last Documented On 2 3:01PM ; [facility], [facility] History of Heartburn / Acid Reflux 07/11 Last Documented On 2 3:01PM ; [facility], [facility] History of History of Heart Attack / Str jacob 07/11/2022 Last Documented On 2 3:01PM ; [facility], [facility] History of Hypertension 07/11/2022 Last Documented On 2 3:01PM ; [facility], [facility] History of Thyroid Disease 07/11/2022 Last Documented On 2 3:01PM ; [facility], [facility] Recent immunization for flu 07/06/2022 Last Documented On 2 3:01PM ; [facility], [facility] Recent immunization for pneumococcal pne umonia 201907/11/2022 Last Documented On 2 3:01PM ; [facility] Family History Includes: Family History addressed during this encounter Description Last Updated Diabetes mellitus 07/11/2022 Last Documented On 2 3:01PM ; [facility] Family history of cancer 07/11/2022 Last Documented On 2 3:01PM ; [facility] Family history of heart disease 07/11/20 22 Last Documented On 2 3:01PM ; [facility] Family history of systemic hypertension 07/11/2022 Last Documented On 2 3:01PM ; [facility] Review of Systems Includes: Review of Systems [...] Immunologic: Complaint of seasonal allergic reaction. reviewed 09/04/22 Mental Status Includes: Mental Status from this encounter Description Anxiety Last Documented On 2 3:01PM ; [facility] Physical Exam Includes: Physical Exam from this encounter Immunizations Includes: Immunizations addressed during this encounter Vaccine Dose # Date Site Reaction(s) Status Source Influenza 1 07/09/2022 Complete (Reported) Patient Last Documented On 2 3:03PM ; [facility] Allergies Includes: Active Allergies Substance Type Reaction Onset Date Resolved Date Statu s Sulfac Allergy 08/31/2008 Active Last Documented On 2 7:59AM ; [facility] Penicillins Allergy 08/31/2008 Active Last Documented On 2 7:59AM ; [facility] Morphine Derivatives Allergy 08/31/2008 Active Last Documented On 2 7:59AM ; [facility] Keflex Allergy 08/31/2008 Active Last Documented On 2 7:59AM ; [facility] Erythromycin Allergy 08/31/2008 Active Last Documented On 2 7:59AM ; [facility] Codeine Phosphate Allergy 08/31/2008 A ctive Last Documented On 2 7:59AM ; [facility], [facility] Care Mobile Homes Repairer Name (Identifier) Role/Relation Location/Telecom Last Documented By Meli Gallardo APRN ([id number]) [address] [place] [address], , [address] tel: Last Documented On 07/11/2022 10:08AM ; [facility] Tyler Dempsey MD ([id number]) Assigned practitioner (occupation) [address] [place] [address], [place], [address] tel: Last Documented On 09/13/2022 4:34PM ; [facility], [facility] Encounters Encounter Provider Location (Healthcare Service Location) Date Check-In Time Check-Out Time Diagnosis Encounter Disposition Post Op Tyler Dempsey MD [facility] 2021 2:21PM 3:54PM Payer Includes: Active Insurance Policies Plan Name (Payer ID) Coverage Type Member ID Group # Subscriber (ID) Relationship Effective Dates 1 - [facility] ([id number]) [id number] GABE OLVERA Self 10/07/2019 - Unknown Last Documented On 2 8:43AM ; [facility], [facility]
--- OUTSIDE RECORDS SUMMARY | 2025-10-01 20:15 | XMS_ITS | Clinical Summary ---
Author Organization [facility] , [facility] Address [address] [place] [address] Phone Care Team Providers Care Compounding Scaler Name Role Phone Meli Gallardo APRN Unavailable [phone] Roselyn MCKEON, Tyler Yadav Unavailable [phone] Reason for Visit and Chief Complaint Follow Up Problems Includes: Problems addressed during this encounter and other active Problems All Visits Onset Date Date of Diagnosis Resolved Date Provider Condition Status Joint Pain Knee 07/11/2022 07/11/2022 Tyler Dempsey MD Active Last Documented On 5 1:41AM ; [facility] Plan of Treatment No Plan of Treatment Recorded Assessments Includes: Assessments from this encounter No Assessments Recorded Medical Equipment - Implanted Devices Includes: Current Devices No Medical Equipment Recorded Medications Includes: Medications discussed during this encounter and other current Medications Current Medications (continue as prescribed) Carvedilol 25 MG Oral Tablet 07/11/2022 Provider: Diagnosis: Last Documented On 2 9:51AM By Arleen Carias ; [facility], [facility] HumaLOG Mix 75/25 KwikPen (7 5-25) 100 UNIT/ML Subcutaneous Suspension Pen-injector 07/09/2022 Provider: Israel Gallardo APRN Diagnosis: Last Documented On 2 9:51AM By Arleen Carias ; [facility], [facility] Clopidogrel Bisulfate 75 MG Oral Tablet 07/04/2022 P rovider: FRANCISCO JOSEPH MD Diagnosis: Last Documented On 2 9:51AM By Arleen Carias ; [facility], [facility] Fluticasone Propionate 50 MC G/ACT Nasal Suspension 07/04/2022 Provider: Meli Gallardo APRN Diagnosis: Last Documented On 2 9:51AM By Arleen Carias ; [facility], [facility] busPIRone HCl 10 MG Oral Tablet 06/26/2022 Provider: Meli Gallardo APRN Diagnosis: Last Documented On 2 9:51AM By Arleen Carias ; [facility], [facility] Citalopram Hydrobromide 40 MG Oral Tablet 05/25/2022 Provider: Meli Gallardo APRN Diagnosis: Last Documented On 2 9:51AM By Arleen Carias ; [facility], [facility] Jardiance 25 MG Oral Tablet 05/15/2022 Provider: Meli Glalardo APRN Diagnosis: Last Documented On 2 9:51AM By Arleen Craias ; [facility], [facility] amLODIPine Besylate 10 MG Oral Tablet 04/12/2022 Pro vider: FRANCISCO JOSEPH MD Diagnosis: Last Documented On 2 9:51AM By Arleen Carias ; [facility], [facility] Medications Administered Includes: Administered Medications from this encounter No Administered Medications Recorded Results Includes: Results discussed during this encounter No Results Recorded For Specified Dates History of Present Illness Includes: History of Present Illness from this encounter No History of Present Illness Recorded Social History Description Last Updated Sex - Female 09/13/2022 Last Documented On 2 4:34PM ; [facility], [facility] Smoking Status Unknown Medical History Includes: Medical History addressed during this encounter No Medical History Recorded Family History Includes: Family History addressed during this encounter No Family History Recorded Review of Systems Includes: Review of Systems from this encounter No Review of Systems Recorded Physical Exam Includes: Physical Exam from this encounter No Physical Exam Recorded Allergies Includes: Active Allergies Substance Type Reaction Onset Date Resolved Date Statu s Sulfac Allergy 08/31/2008 Active Last Documented On 2 7:59AM ; [facility], [facility] Penicillins Allergy 08/31/2008 Active Last Documented On 2 7:59AM ; [facility], [facility] Morphine Derivatives Allergy 08/31/2008 Active Last Documented On 2 7:59AM ; [facility] Keflex Allergy 08/31/2008 Active Last Documented On 2 7:59AM ; [facility] Erythromycin Allergy 08/31/2008 Active Last Documented On 2 7:59AM ; [facility] Codeine Phosphate Allergy 08/31/2008 A ctive Last Documented On 2 7:59AM ; [facility], [facility] Care Compounding Scaler Name (Identifier) Role/Relation Location/Telecom Last Documented By Meli Gallardo APRN ([id number]) [address] [place] [address], , [address] tel:[phone] Last Documented On 07/11/2022 10:08AM ; [facility], [facility] Tyler Dempsey MD ([id number]) Assigned practitioner (occupation) [address] [place] [address], , [address] tel:[phone] Last Documented On 09/13/2022 4:34PM ; [facility], [facility] Encounters Encounter Provider Location (Healthcare Service Location) Date Check-In Time Check-Out Time Diagnosis Encounter Disposition Follow Up Ayaz Zheng MD [facility] 2009 9:06AM 10:27AM Payer Includes: Active Insurance Policies Plan Name (Payer ID) Coverage Type Member ID Group # Subscriber (ID) Relationship Effective Dates 1 - [facility] ([id number]) [id number] GABE OLVERA Self 10/07/2019 - Unknown Last Documented On 2 8:43AM ; [facility], [facility]
--- OUTSIDE RECORDS SUMMARY | 2025-10-01 20:15 | XMS_ITS | Clinical Summary ---
Author Organization [employer] ([place], [place], [place], [place], [place]) Address [address] [place] [address] Care Team Providers Care Metal Stamping Machine Operator Name Role Phone Meli Gallardo APRN Primary Care Provider + [phone] Allergies Active Allergy Reactions Criticality Noted Date [...] Do you speak a language other than Slovenian at [facility]? No 12/04/2023 Do you [...] 3, 06/29/2022, 06/28/2021, Additional history exists Insurance [facility] DUAL COMPLETE [facility] ADV [facility] MEDICARE ADVANTAGE Advance Directives For more information, please contact: [phone] * Full Code (Latest Code Status on File) Date Activated Date Inactivated Comments 12/03/2023 8:33 PM 12/05/2023 6:12 PM Care Teams Metal Stamping Machine Operator Relationship Specialty Start Date End Date Meli Gallardo, OIL EXPELLER PCP - General Family Medicine 10/31/22
--- OUTSIDE RECORDS SUMMARY | 2025-10-01 20:15 | XMS_ITS | Referral Summary ---
Author Organization [employer] ([place], [place], [place], [place], [place]) Address [address] [place] [address] Care Team Providers Care Culinary Internship Name Role Phone Meli Gallardo APRN Primary Care Provider + [phone] Allergies Active Allergy Reactions Criticality Noted Date [...] Do you speak a language other than Filipino at [facility]? No 12/04/2023 Do you [...] Plan of Treatment Not on file Insurance [facility] D[facility] ADV [facility] MEDIC[facility] ADVANTAGE Advance Directives For more information, please contact: [phone] * Full Code (Latest Code Status on File) Date Activated Date Inactivated Comments 12/03/2023 8:33 PM 12/05/2023 6:12 PM Care Teams Culinary Internship Relationship Specialty Start Date End Date Meli Gallardo, HEALTH INFORMATICS SPECIALIST PCP - General Family Medicine 10/31/22
--- OUTSIDE RECORDS SUMMARY | 2025-10-01 20:15 | XMS_ITS | Encounter Summary ---
Author Organization [employer] ([place], [place], [place], [place], [place]) Address [address] [place] [address] Care Team Providers Care Chief Librarian Branch Or Department Name Role Phone Meli Gallardo APRN Primary Care Provider + [phone] Encounter Details Date Type Department Care Team (Late st Contact Info) Description 01/13/2024 Telephone [facility] Neurology - [address] [place] [address] Mely Gaviria APRN [address] [place] [address] Social History Tobacco Use Types [...] Do you speak a language other than Cameroonian at [facility]? No 12/04/2023 Do you want help [...] on filedocumented in this encounter Care Teams Chief Librarian Branch Or Department Relationship Specialty Start Date End Date Meli Gallardo, MIGUEL ANGEL PCP - General Family Medicine 10/31/22 documented as of this encounter
--- OUTSIDE RECORDS SUMMARY | 2025-10-01 20:15 | XMS_ITS | Encounter Summary ---
Author Organization [facility] [place] Address [address] [place] [address] Care Team Providers Care University Services Program Associate Name Role Phone Meli Gallardo FREIGHT TALLIER Primary Care Provider [phone] Tito Sue MD Unavailable [phone] Reason for Referral * Consultation (Routine) - Closed Specialty Diagnoses / Procedures Referred By Estrellita alves Referred To Contact Gastroenterology Diagnoses Gastro-esophageal reflux disease without esophagitis Meli Gallardo APRN [id number] fax: Referral ID Status Reason Start Date Expiration Date V isits Requested Visits Authorized [id number] Closed Specialty Services Required 11/12/2022 05/13/2024 1 1 Encounter Details Date Type Department Care Team (Late st Contact Info) Description 11/12/2022 Community Orders [facility] [address] [place] [address] Meli Gallardo APRN [id number] Gastro-esophageal reflux disease without esophagitis (Primary Dx) [...] documented as of this encounter Care Teams University Services Program Associate Relationship Specialty Start Date End Date Meli Gallardo APRN [id number] PCP - General 02/17/21 Tito Sue MD [address] [place] [id number] Surgeon Neurosurgery 07/21/25 documented as of this encounter
--- OUTSIDE RECORDS SUMMARY | 2025-10-01 20:15 | XMS_ITS | Clinical Summary ---
Author Organization [facility] Address [address] [place] [address] Care Team Providers Care Industrial Mechanic Name Role Phone GallardoMeli barnett MIGUEL ANGEL Primary Care Provider [phone] Tito Sue MD Unavailable [phone] Allergies Active Allergy Reactions Criticality Noted [...] every evening. 4 Active ergocalciferol 1.25 MG (29761 UT) capsule Take 1 capsule by mouth [...] Lumbar Spine: See findings above - Discontinue FORESTRY FOREMAN. Initiated [place] 1 tab q4hr PRN. - Continue additional [...] + TLIF - f/u XR - Discontinue FORESTRY FOREMAN. Initiated [place] 1 tab q4hr PRN. - Continue additional [...] (03/31/2021): Added automatically from request for surgery [id number] Urinary urgency 03/31/2021 10/03/2024 Overview (03/31/2021): Added automatically from request for surgery [id number] Urinary frequency 03/31/2021 02/01/2025 Overview (03/31/2021): Added automatically from request for surgery [id number] Viral pneumonia 08/01/2020 10/03/2024 Overview (03/26/2024): Problem [...] EST Hospital Encounter Cardiac Imaging [address] [place] [address] History of loop recorder Discharge Disposition: Home or Self Care 09/15/2025 Travel 09/08/2025 Telephone [facility] [address], [address] [place] [phone] Tito Sue MD 08/18/2025 Telephone [facility] [address], [address] [place] [address] Tito Sue MD 08/12/2025 4:19 PM EST - 08/12/2025 11:59 PM EST Hospital Encounter Cardiac Imaging [address] [place] [address] History of loop recorder Discharge Disposition: Home or Self Care 08/12/2025 Travel 08/02/2025 1:45 PM EDT - 08/02/2025 6:35 PM EDT Emergency [facility] Emergency Department [address] [place] [address] Sav Paulino MD Dahlgren, Amy E, MD Shortness of breath (Primary Dx); Chest pain, unspecified type Discharge Disposition: Home or Self Care 08/02/2025 Travel 07/30/2025 7:43 PM EDT - 07/31/2025 3:30 PM EDT Hospital Encounter [facility] A Emergency Department [address] [place] [phone] Mack Rivas MD Cruz, Angelo A, MD Hamm, Joel M, MD Right sided sciatica (Primary Dx) Discharge Disposition: Home or Self Care 07/30/2025 Travel 07/21/2025 10:21 AM EDT - 07/21/2025 11:59 PM EDT Hospital Encounter [facility] [address], [address] [place] [address] S/P lumbar fusion Discharge Disposition: Home or Self Care 07/21/2025 10:15 AM EDT Office Visit [facility] [address], [address] [place] [address] Tito Sue MD S/P lumbar fusion (Primary Dx); Follow-up examination after neurological surgery 07/21/2025 Travel 07/20/2025 7:32 AM EDT Anesthesia Event [facility] Endoscopy [address] [place] [address] Vinnie Pantoja MD 07/20/2025 6:36 AM EDT - 07/20/2025 11:59 PM EDT Hospital Encounter [facility] [address] [place] [address] Douglas White MD Fletcher, Charles J, CRNA Jovero, Bonnabille, RN Gastrointestinal hemorrhage associated with anorectal source Discharge Disposition: Home or Self Care 07/20/2025 Travel 07/12/2025 2:25 PM EDT - 07/12/2025 11:59 PM EDT Hospital Encounter Cardiac Imaging [address] [place] [address] Implantable loop recorder present Discharge Disposition: Home or Self Care 07/12/2025 Travel 07/12/2025 Telephone [facility] [address], [address] [place] [address] Tito Sue MD HCN - Patient Message [...] How often do you attend chur or anabaptist services? Never 10/02/2024 Do you belong to any clubs o r organizations such as faith groups, unions, fraternal or athletic groups, or [...] Recorded Patient Health Questionnaire-2 Score 0 02/24/2024 [facility] - Occupational [...] were you homeless or living in a fci (including now)? No 05/18/2025 CAGE ASSESSMENT Answer [...] first t allison in the morning (EYE-BUSINESS OFFICE ASSISTANT) to steady your nerves or to get rid of a hangover? 0 10/01/2024 CAGE Questionnaire Score 0 024 Utilities Answer Date Recorded In the past 12 months has th e [employer], gas, oil, or water [employer] threatened to shut off services in your [...] Tdap) 10/09/2020 10/09/2010 [facility]-Depression Screening 02/23/2025 02/24/2024 [id number] Vaccine (4 - season) 2025 08/03/2021, 12/29/2020, [...] Josué Chavez Medical Devices Implanted Type Area Luncheonette Manager Device Identifier Shelf Expiration Date Model / Serial / Lot Post Ibf Ui H 10mm 8deg 02/07 - [id number] - [id number] Implanted:Qty: 1 on 05/17/2025 by Tito Sue MD at [facility] Cage N/A: Spine Lumbar DePuy Spine Sales [id number] 02/03/2035 [id number] / [id number] / Pre-Lordosed Benny W/ Line 35mm - [id number] Implanted:Qty: 2 on 05/17/2025 by Tito Sue MD at [facility] Benny N/A: Spine Lumbar DePuy Spine Sales [id number] 05/17/2026 [id number] / / Neurostimulator - [id number] - [id number] Implanted:Qty: 1 on 04/18/2021 by Kiersten Welch MD at [facility] Stem Medtronic/DLP Cardio-Pulmonar [id number] 06/03/2022 [id number] / [id number] / [id number] Bladder Stimulator Back Mesh Phasix St [id number] - [id number] Implanted:Qty: 1 on 09/18/2024 by Francisco J Amor MD at [facility] N/A: Abdomen Davol [id number] 01/01/2027 [id number] / / [id number] Single Inner Setscrew - Sna - [id number] Implanted:Qty: 4 on 05/17/2025 by Tito Sue MD at [facility] N/A: Spine Lumbar DePuy Spine Sales [id number] 05/17/2025 [id number] / NA / NA Screw 5.5mm Viper Ti Fen Crtcl Polyax 7mm X 45mm - Sna - [id number] Implanted:Qty: 2 on 05/17/2025 by Tito Sue MD at [facility] N/A: Spine Lumbar DePuy Spine Sales [id number] 05/17/2025 [id number] / NA / NA Screw 5.5mm Viper Ti Fen Crtcl Polyax 8mm X 45mm - Sna - [id number] Implanted:Qty: 1 on 05/17/2025 by Tito Sue MD at [facility] N/A: Spine Lumbar DePuy Spine Sales [id number] 05/17/2025 [id number] / NA / NA Screw 5.5mm Viper Ti Fen Crtcl Polyax 8mm X 40mm - Sna - [id number] Implanted:Qty: 1 on 05/17/2025 by Tito Sue MD at [facility] N/A: Spine Lumbar DePuy Spine Sales [id number] 05/17/2025 [id number] / NA / NA Matrix Fibergraft Bg Medium 6.25cc - [id number] Implanted:Qty: 1 on 05/17/2025 by Tito Sue MD at [facility] N/A: Spine Lumbar DePuy Spine Sales [id number] 11/26/2027 [id number] / / [id number] Procedures Procedure Name Priority Date/Time Associated Diagnosis [...] 8 <14 ng/L 08/02/2025 3:11 PM EDT [facility] Troponin Delta Interpretation Not Calculated 08/02/2025 3:11 PM EDT [facility] Comment:Specimen not collect ed within acceptable timeframe. Delta will not be calculated. Blood Venous blood specimen / Unknown Venipuncture / Unknown 08/02/2025 2:27 PM EDT 08/02/2025 2:37 PM EDT us Umer Matos MD LAB BLOOD ORDERABLES Final Result [facility] [address] [place] [address] * XR Chest 1 View (08/02/2025 2:14 [...] 9 <14 ng/L 08/02/2025 1:10 PM EDT [facility] Blood Venous blood specimen / Unknown Venipuncture / Unknown 08/02/2025 12:28 PM EDT 08/02/2025 12:31 PM EDT Umer Matos MD LAB BLOOD ORDERABLES Final Result [facility] [address] [place] [address] * (ABNORMAL) Lactic acid, venous (08/02/2025 12:28 PM EDT) [facility] [address] Lactate, Venous, Whole Blood 3.2(H) 0.5 - 2.2 mmol/L LAB HEMATOLOGY METHOD 08/02/2025 12:34 PM EDT [facility] Blood Venous blood specimen / Unknown Venipuncture / Unknown 08/02/2025 12:28 PM EDT 08/02/2025 12:34 PM EDT Umer Matos MD LAB BLOOD ORDERABLES Final Result Performing Organization Address [facility] Co de Phone Number [facility] [address] [place] [address] * BNP (08/02/2025 12:28 PM EDT) [facility] [address] N-Terminal, PROBNP, Plasma <50 0 - 899 pg/mL 08/02/2025 1:10 PM EDT [facility] Blood Venous blood specimen / Unknown Venipuncture / Unknown 08/02/2025 12:28 PM EDT 08/02/2025 12:31 PM EDT us Umer Matos MD LAB BLOOD ORDERABLES Final Result Performing Organization Address [facility] Co de Phone Number [facility] [address] [place] [address] * (ABNORMAL) CBC w/diff (08/02/2025 12:28 PM EDT) Only the most recent of2 resultswithin the time period is included. [facility] [address] WBC Count 5.86 3.70 - 10.30 10*3/uL LAB HEMATOLOGY METHOD 08/02/2025 12:36 PM EDT [facility] RBC Count 4.88 3.90 - 5.20 10*6/uL LAB HEMATOLOGY METHOD 08/02/2025 12:36 PM EDT [facility] HGB 14.2 11.2 - 15.7 g/dL LAB HEMATOLOGY METHOD 08/02/2025 12:36 PM EDT [facility] HCT 43.2 34.0 - 45.0 % LAB HEMATOLOGY METHOD 08/02/2025 12:36 PM EDT [facility] Platelet Count 175 155 - 369 10*3/uL LAB HEMATOLOGY METHOD 08/02/2025 12:36 PM EDT [facility] MCV 89 79 - 98 fL LAB HEMATOLOGY METHOD 08/02/2025 12:36 PM EDT [facility] MCH 29.1 26.0 - 32.0 pg LAB HEMATOLOGY METHOD 08/02/2025 12:36 PM EDT [facility] MCHC 32.9 30.7 - 35.5 g/dL LAB HEMATOLOGY METHOD 08/02/2025 12:36 PM EDT [facility] RDW 13.2 11.5 - 14.5 % LAB HEMATOLOGY METHOD 08/02/2025 12:36 PM EDT [facility] MPV 10.0 8.8 - 12.5 fL LAB HEMATOLOGY METHOD 08/02/2025 12:36 PM EDT [facility] nRBC 0.0 <=0.0 per 100 WBCs LAB HEMATOLOGY METHOD 08/02/2025 12:36 PM EDT [facility] Differential Type Automated LAB HEMATOLOGY METHOD 08/02/2025 12:36 PM EDT [facility] Neutrophils % 62 % LAB HEMATOLOGY METHOD 08/02/2025 12:36 PM EDT [facility] Lymphocytes % 29 % LAB HEMATOLOGY METHOD 08/02/2025 12:36 PM EDT [facility] Monocytes % 5 % LAB HEMATOLOGY METHOD 08/02/2025 12:36 PM EDT [facility] Eosinophils % 2 % LAB HEMATOLOGY METHOD 08/02/2025 12:36 PM EDT [facility] Basophils % 1 % LAB HEMATOLOGY METHOD 08/02/2025 12:36 PM EDT [facility] Immature Granulocytes % 1 % LAB HEMATOLOGY METHOD 08/02/2025 12:36 PM EDT [facility] Neutrophils Absolute 3.73 1.60 - 6.10 10*3/uL LAB HEMATOLOGY METHOD 08/02/2025 12:36 PM EDT [facility] Lymphocytes Absolute 1.69 1.20 - 3.90 10*3/uL LAB HEMATOLOGY METHOD 08/02/2025 12:36 PM EDT [facility] Monocytes Absolute 0.27(L) 0.30 - 0.90 10*3/uL LAB HEMATOLOGY METHOD 08/02/2025 12:36 PM EDT [facility] Eosinophils Absolute 0.09 0.00 - 0.50 10*3/uL LAB HEMATOLOGY METHOD 08/02/2025 12:36 PM EDT [facility] Basophils Absolute 0.04 0.00 - 0.10 10*3/uL LAB HEMATOLOGY METHOD 08/02/2025 12:36 PM EDT [facility] Immature Granulocytes Absolute 0.04 0.00 - 0.06 10*3/uL LAB HEMATOLOGY METHOD 08/02/2025 12:36 PM EDT [facility] Blood Venous blood specimen / Unknown Venipuncture / Unknown 08/02/2025 12:28 PM EDT 08/02/2025 12:31 PM EDT Narrative [facility] - 08/02/2025 12:36 PM EDT Therapeutic decision making should be based on absolute values, rather than percentages. us Umer Matos MD LAB BLOOD ORDERABLES Final Result Performing Organization Address City/[facility]/ZIP Co de Phone Number [facility] [place] [place] [address] [place] [address] * (ABNORMAL) TSH (08/02/2025 12:28 PM EDT) Thyroid Stimulating Hormone, Plasma 17.12(H) 0.40 - 4.20 uIU/mL 08/02/2025 1:10 PM EDT [facility] Blood Venous blood specimen / Unknown Venipuncture / Unknown 08/02/2025 12:28 PM EDT 08/02/2025 12:31 PM EDT Umer Matos MD LAB BLOOD ORDERABLES Final Result [facility] [address] [place] [address] * (ABNORMAL) T4, free (08/02/2025 12:28 PM EDT) Free T4, Plasma 0.7(L) 0.8 - 1.7 ng/dL 08/02/2025 2:58 PM EDT [facility] Blood Venous blood specimen / Unknown Venipuncture / Unknown 08/02/2025 12:28 PM EDT 08/02/2025 12:31 PM EDT Sav Paulino MD LAB BLOOD ORDERABLES Final Result [facility] [address] [place] [address] * (ABNORMAL) CMP (08/02/2025 12:28 PM EDT) Only the most recent of2 resultswithin the time period is included. Glucose, Plasma 290(H) 74 - 99 mg/dL 08/02/2025 1:10 PM EDT [facility] BUN, Plasma 16 8 - 23 mg/dL 08/02/2025 1:10 PM EDT [facility] Creatinine, Plasma 0.68 0.60 - 1.10 mg/dL 08/02/2025 1:10 PM EDT [facility] BUN/Creatinine Ratio 24 08/02/2025 1:10 PM EDT [facility] Sodium, Plasma 140 136 - 145 mmol/L 08/02/2025 1:10 PM EDT [facility] Potassium, Plasma 4.7 3.6 - 4.9 mmol/L 08/02/2025 1:10 PM EDT [facility] Chloride, Plasma 99 97 - 107 mmol/L 08/02/2025 1:10 PM EDT [facility] CO2, Plasma 27 22 - 29 mmol/L 08/02/2025 1:10 PM EDT [facility] Anion Gap 14 6 - 16 mmol/L 08/02/2025 1:10 PM EDT [facility] Total Calcium, Plasma 9.9 8.9 - 10.2 mg/dL 08/02/2025 1:10 PM EDT [facility] Total Protein 7.2 6.3 - 7.9 g/dL 08/02/2025 1:10 PM EDT [facility] Albumin, Plasma 4.5 3.5 - 5.2 g/dL 08/02/2025 1:10 PM EDT [facility] AST, Plasma 29 10 - 35 U/L 08/02/2025 1:10 PM EDT [facility] Comment:Hemolyzed, result ma y be falsely increased. ALT, Plasma 31 10 - 35 U/L 08/02/2025 1:10 PM EDT [facility] Alkaline Phosphatase, Plasma 102 46 - 142 U/L 08/02/2025 1:10 PM EDT [facility] Total Bilirubin, Plasma 0.4 0.2 - 1.1 mg/dL 08/02/2025 1:10 PM EDT [facility] eGFRcr 95.6 mL/min/1.7 3m*2 08/02/2025 1:10 PM EDT [facility] Comment:Reported eGFRcr in m L/min/1.73m2 is based the CKD-EPI 2020 equation that does not use a race coefficient. Blood Venous blood specimen / Unknown Venipuncture / Unknown 08/02/2025 12:28 PM EDT 08/02/2025 12:31 PM EDT Umer Matos MD LAB BLOOD ORDERABLES Final Result [facility] [address] [place] [address] * EKG now - STAT (adult) (08/02/2025 12:05 PM EDT) EKG DIAGNOSIS CLASS Abnormal MUSE ECG Ventricular Rate 86 BPM MUSE ECG Atrial Rate 86 BPM MUSE ECG MN Interval 136 ms MUSE ECG QRSD Interval 86 ms MUSE ECG QT Interval 402 ms MUSE ECG QTC Interval 481 ms MUSE ECG P [place] 52 degrees MUSE ECG R [place] -6 degrees MUSE ECG T Wave [place] 11 degrees MUSE ECG Diagnosis Normal sinus rhythm MUSE ECG Diagnosis Poor R-wave progression MUSE ECG Diagnosis Nonspecific T wave abnormality MUSE ECG Diagnosis Abnormal ECG MUSE ECG Diagnosis MUSE ECG Diagnosis Confirmed by Reji Osborn ([id number]) on 08/02/2025 12:21:05 PM MUSE ECG 08/02/2025 12:0 5 PM EDT 08/02/2025 12:21 PM EDT us Umer Matos MD ECG ORDERABLES Final Result Performing Organization Address City/[facility]/ZIP Co de Phone Number MUSE ECG * [...] Comment 07/31/2025 11:34 AM EDT [facility] Zipper Setter Chainstitch ID Sabiha Retana 07/31/2025 11:34 AM EDT [facility] Device ID [id number] 07/31/2025 11:34 AM EDT [facility] Specimen Type POC Capillary 07/31/2025 11:34 AM EDT [facility] Blood Capillary blood specimen / Unknown 07/31/2025 11:33 AM EDT 07/31/2025 11:34 AM EDT us Carl Bishop MD LAB POINT OF CARE TE ST DOCKED DEVICE UNSOLICITED RESULTS Final Result Performing Organization Address City/[facility]/ZIP Co de Phone Number [facility] [address] [place] [address] * XR Lumbar Spine 2 or 3 [...] rate, automated (07/30/2025 7:42 PM EDT) Pathologist [facility] Sedimentation Rate 12 <30 mm/hr 2024 8:31 PM EDT [facility] Blood Venous blood specimen / Unknown Venipuncture / Unknown 07/30/2025 7:42 PM EDT 07/30/2025 7:46 PM EDT Mack Rivas MD LAB BLOOD ORDERABLES Fi nal Result [facility] [address] [place] [address] * C-Reactive protein (07/30/2025 7:42 PM EDT) CRP, Plasma 5.2 <=8.0 mg/L 07/30/2025 8:32 PM EDT [facility] Blood Venous blood specimen / Unknown Venipuncture / Unknown 07/30/2025 7:42 PM EDT 07/30/2025 7:46 PM EDT Narrative [facility] - 07/30/2025 8:32 PM EDT This CRP test is appropriate for assessment of infection, systemic inflammation and/or tissue injury. To assess cardiovascular disease risk order high sensitivity CRP (CRPH). us Mack Rivas MD LAB BLOOD ORDERABLES Fi nal Result [facility] [address] [place] [address] * Colonoscopy (07/20/2025 8:07 AM EDT) Anatomical [...] Bonnabille, RN Endo Nurse Lisa Will Endo Retail Product Advisor Vinnie Pantoja MD Anesthesiologist Preprocedure A history [...] of bowel preparation was evaluated using the [place] Bowel Preparation Scale with scores of: right [...] AM EDT) Case Report Surgical Pathology Case: [id number] Authorizing Provider: Douglas White MD Collected: 07/20/2025 0759 Ordering Location: [facility] Endoscopy Received: 07/20/2025 1110 Pathologist: Vinnie Sharma DO Specimen: Ascending Colon, ascending colon polyp 07/21/2025 10:04 AM EDT [facility] Final Diagnosis LARGE INTESTINE, ASCENDING COLON, POLYP, BIOPSY: - COLONIC MUCOSA WITH LYMPHOID AGGREGATE; NEGATIVE FOR DYSPLASIA. 07/21/2025 10:04 AM EDT [facility] at 1004 EDT Clinical Information K62.5 - Gastrointestinal hemorrhage associated with anorectal source [ICD-10-CM] Colonoscopy findings: - One 4 mm sessile polyp in the ascending colon. 07/21/2025 10:04 AM EDT [facility] Gross Description A. ASCENDING COLON POLYP Received in formalin labeled ascending colon polyp is 1 lujan-brown soft tissue fragment measuring 0.4 cm in greatest dimension. Entirely submitted in cassette A1. Cold Time: <1m Miranda Ramachandran 07/21/2025 10:04 AM EDT [facility] Note: A resident was involved in the service. I attest I examined the relevant preparations for the specimens and confirmed the diagnosis or interpretation. 07/21/2025 10:04 AM EDT [facility] Tissue Ascending colon structure / Unknown 07/20/2025 7:59 AM EDT 07/20/2025 11:10 AM EDT us Douglas White MD LAB PATHOLOGY ORDERABLES Final Result Performing Organization Address [facility] Co de Phone Number [facility] [place] [place] [address] [place] [address] * (ABNORMAL) Hemoglobin A1c (05/13/2025 11:16 AM EDT) Hemoglobin A1c 7.2(H) <5.7 % 05/13/2025 1:43 PM EDT [facility] Blood Venous blood specimen / Unknown Venipuncture / Unknown 05/13/2025 11:16 AM EDT 05/13/2025 11:17 AM EDT Narrative [facility] - 05/13/2025 1:43 PM EDT HA1C Interpretive Data: Diagnosis of Diabetes: Diabetic > or = 6.5% Pre-diabetic 5.7 to 6.4% Non-diabetic < or = 5.6% Glycemic Targets for Type I and Type II Diabetics: Non- Adults <7.0% Adults <6.0% Children and Adolescents <7.5% Source: [place] [employer]. Standards of medical care in diabetes,2017. Diabetes Care.2017:40 (suppl 1):S1-S135. us Annabelle Solorio APRN LAB BLOOD ORDERABLES Final R esult Performing Organization Address City/[facility] Co de Phone Number [facility] [address] [place] [address] * Hepatitis C Antibody - ED W/Reflex to HCV Quant PCR (10/01/2024 1:00 PM EST) Hepatitis C Antibody Negative Negative 10/01/2024 1:36 PM EST [facility] Blood Venous blood specimen / Unknown Venipuncture / Unknown 10/01/2024 1:00 PM EST 10/01/2024 1:04 PM EST us Denise YOUSSEF LAB BLOOD ORDERABLES Final Resu lt [facility] [address] [place] [address] from Last 3 Months or Most Recently Relevant to Health Maintenance Additional Health Concerns Active Problems Noted Date Diagnosed Date Autogenerated Problem 05/10/2025 Autogenerated Problem 05/05/[address] [place] [address] [place] [address] MEDICAID [facility] MEDICARE Advance Directives * Full Code (Latest [...] Patient has decision-making capacity? Yes Care Teams Industrial Mechanic Relationship Specialty Start Date End Date Meli Gallardo APRN [id number] PCP - General 02/17/21 Tito Sue MD [address] [address] Surgeon Neurosurgery 07/21/25
--- OUTSIDE RECORDS SUMMARY | 2025-10-01 20:15 | XMS_ITS | Clinical Summary ---
Author Organization [facility] Address [address] [place] [address] Care Team Providers Care Form Tamper Operator Name Role Phone Meli Gallardo APRN Primary Care Provider [phone] Allergies Active Allergy Reactions Criticality Noted Date [...] 2 Active vitamin D (ERGOCALCIFEROL) 1.25 MG (34468 UT) capsule capsule Take 1 capsule by [...] or training? Not on file Preferred Language Wolof 08/13/2022 Comments No Sex and Gender Information [...] Completed 10/01/2024 Medical Devices Implanted Type Area Gameroom Technician Device Identifier Shelf Expiration Date Model / Serial / Lot Sut/Anch Healix Adv Br W/Dynacord 4.5mm - [id number] Implanted:Qty : 1 on 02/18/2023 by Jefry Zayas MD at [facility] Implant Right: Shoulder DEPUY MITEK [id number] 11/06/2025 [id number] / / [id number] Sut/Anch Biocomp Swllk Tenodesis 7x19.5 - [id number] Implanted:Qty : 1 on 02/18/2023 by Jefry Zayas MD at [facility] Implant Right: Shoulder ARTHREX [id number] 03/06/2026 [id number] / / [id number] Sut/Anch Healix Adv Br W/Dynacord 4.5mm - [id number] Implanted:Qty : 1 on 02/18/2023 by Jefry Zayas MD at [facility] Implant Right: Shoulder DEPUY MITEK [id number] 11/06/2025 [id number] / / [id number] Interstim Procedures Procedure Name Priority Date/Time Associated Diagnosis Comments HEMOGLOBIN A1C Routine 08/13/2022 12:21 PM EST LIPID PANEL Routine 12/19/2017 2:01 AM EDT from Last 3 Months or Most Recently Relevant to Health Maintenance Results * (ABNORMAL) Hemoglobin A1c (08/13/2022 12:21 PM EST) Hemoglobin A1C 8.30(H) 4.80 - 5.60 % 08/13/2022 2:00 PM EST [facility] Blood Venipuncture / Unknown 08/13/2022 12:21 PM EST 08/13/2022 12:36 PM EST [facility] - 08/13/2022 2:00 PM EST Hemoglobin A1C Ranges: Increased Risk for Diabetes 5.7% to 6.4% Diabetes >= 6.5% Diabetic Goal < 7.0% us Tyler Dempsey MD LAB BLOOD ORDERABLES Final R esult [facility]
[address] [place] [address], * (ABNORMAL) Lipid Panel (12/19/2017 2:01 AM EDT) Total Cholesterol 225(H) 0 - 200 mg/dL 12/19/2017 3:59 AM EDT [facility] Triglycerides 222(H) 0 - 150 mg/dL 12/19/2017 3:59 AM EDT [facility] HDL Cholesterol 57 40 - 60 mg/dL 12/19/2017 3:59 AM EDT [facility] LDL Cholesterol 160(H) 0 - 130 mg/dL 12/19/2017 3:59 AM EDT [facility] Blood Venipuncture / Unknown 12/19/2017 2:01 AM EDT 12/19/2017 3:21 AM EDT [facility] - 12/19/2017 3:59 AM EDT [...] PA-C LAB BLOOD ORDERABLES Final Re sult [facility]
[address] [place] [address], [place] [phone] from Last 3 Months or Most Recently Relevant to Health Maintenance Insurance [facility] MEDICARE ADVANTAGE [facility] HMO NON PAR Advance Directives * Full Code (Latest Code Status on File) Date Activated Date Inactivated Comments 12/18/2017 11:57 PM 12/21/2017 1:10 PM Care Teams Form Tamper Operator Relationship Specialty Start Date End Date Meli Gallardo APRN PCP - General Nurse Practitioner 12/18/17
--- OUTSIDE RECORDS SUMMARY | 2025-10-01 20:15 | XMS_ITS | Encounter Summary ---
Author Organization Healthcare Address [address] [place] [address] Care Team Providers Care Corporate Risk Analyst Name Role Phone Sami Meli MIGUEL ANGEL Primary Care Provider [phone] Tito Sue MD Unavailable [phone] Encounter Details Date Type Department Care Team (Late st Contact Info) Description 04/06/2025 Orders Only External Location [address] [place] [address] Provider, External Social History Tobacco Use Types [...] How often do you attend [facility] or episcopalian services? Never 10/02/2024 Do you belong to any clubs o r organizations such as buddhism groups, unions, fraternal or athletic groups, or [...] Health Questionnaire-2 Score 0 02/24/2024 [facility] - Occupational [...] any time in the past 12 m [facility], were you homeless or living in a correction (including now)? No 10/02/2024 CAGE ASSESSMENT Answer [...] drink first t allison in the morning (EYE-LACE ROLLER) to steady your nerves or to get rid of a hangover? 0 10/01/2024 CAGE Questionnaire Score 0 024 Utilities Answer Date Recorded In the past 12 months has [employer], gas, oil, or water [employer] threatened to shut off services in your [...] documented as of this encounter Care Teams Corporate Risk Analyst Relationship Specialty Start Date End Date Meli Gallardo APRN [id number] PCP - General 02/17/21 Tito Sue MD [address] [place] [address] Surgeon Neurosurgery 07/21/25 documented as of this encounter
--- OUTSIDE RECORDS SUMMARY | 2025-10-01 20:15 | XMS_ITS | Clinical Summary ---
Author Organization [facility] Address [address] [facility] [place] [address] Phone Care Team Providers Care Senior Quality Manager Name Role Phone Meli Gallardo APRN Unavailable [phone] Roselyn MCKEON, Tyler Yadav Unavailable [phone] Reason for Visit and Chief Complaint Hinduism Health Problems Includes: Problems addressed during this encounter and other active Problems All Visits Onset Date Date of Diagnosis Resolved Date Provider Condition Status Joint Pain Knee 07/11/2022 07/11/2022 Tyler Dempsey MD Active Last Documented On 5 1:41AM ; [facility] Plan of Treatment Pending Tests Order Diagnosis Results Due Ordering P roellender Radiology - CT Scan Knee 07/25/22 Tyler Dempsey MD Last Documented On 2 10:33AM ; [facility] Assessments Includes: Assessments from this encounter No Assessments Recorded Medical Equipment - Implanted Devices Includes: Current Devices No Medical Equipment Recorded Medications Includes: Medications discussed during this encounter and other current Medications Current Medications (continue as prescribed) Carvedilol 25 MG Oral Tablet 07/11/2022 Provider: Diagnosis: Last Documented On 9:51AM By Arleen Carias ; [facility] HumaLOG Mix 75/25 KwikPen (7 5-25) 100 UNIT/ML Subcutaneous Suspension Pen-injector 07/09/2022 Provider: Israel Gallardo APRN Diagnosis: Last Documented On 2 9:51AM By Arleen Carias ; [facility] Clopidogrel Bisulfate 75 MG Oral Tablet 07/04/2022 Leif khan: FRANCISCO JOSEPH MD Diagnosis: Last Documented On 2 9:51AM By Arleen Carias ; [facility] Fluticasone Propionate 50 MC G/ACT Nasal Suspension 07/04/2022 Provider: Meli Gallardo APRN Diagnosis: Last Documented On 2 9:51AM By Arleen Carias ; [facility] busPIRone HCl 10 MG Oral Tablet 06/26/2022 Provider: Meli Gallardo APRN Diagnosis: Last Documented On 2 9:51AM By Arleen Carias ; [facility] Citalopram Hydrobromide 40 MG Oral Tablet 05/25/2022 Provider: Meli Gallardo APRN Diagnosis: Last Documented On 2 9:51AM By Arleen Carias ; [facility] Jardiance 25 MG Oral Tablet 05/15/2022 Provider: Meli Gallardo APRN Diagnosis: Last Documented On 2 9:51AM By Arleen Carias ; [facility] amLODIPine Besylate 10 MG Oral Tablet 04/12/2022 Pro vider: FRANCISCO JOSEPH MD Diagnosis: Last Documented On 2 9:51AM By Arleen Carias ; [facility] Medications Administered Includes: Administered Medications from this encounter No Administered Medications Recorded Results Includes: Results discussed during this encounter No Results Recorded For Specified Dates History of Present Illness Includes: History of Present Illness from this encounter No History of Present Illness Recorded Social History Description Last Updated Sex - Female 09/13/2022 Last Documented On 2 4:34PM ; [facility] Smoking Status Unknown Medical History Includes: [...] Active Last Documented On 2 7:59AM ; [facility] Penicillins Allergy 08/31/2008 Active Last Documented On 2 7:59AM ; [facility] Morphine Derivatives Allergy 08/31/2008 Active Last Documented On 2 7:59AM ; [facility] Keflex Allergy 08/31/2008 Active Last Documented On 2 7:59AM ; [facility] Erythromycin Allergy 08/31/2008 Active Last Documented On 2 7:59AM ; [facility] Codeine Phosphate Allergy 08/31/2008 A ctive Last Documented On 2 7:59AM ; [facility] Care Senior Quality Manager Name (Identifier) Role/Relation Location/Telecom Last Documented By Meli Gallardo APRN ([id number]) [address] [place] [address], , [address] tel: Last Documented On 07/11/2022 10:08AM ; [facility] Tyler Dempsey MD ([id number]) Assigned practitioner (occupation) [address] [place] [address], , [id number] tel: Last Documented On 09/13/2022 4:34PM ; [facility] Encounters Encounter Provider Location (Healthcare Service Location) Date Check-In Time Check-Out Time Diagnosis Encounter Disposition [facility] Tyler Dempsey MD Surgery 202108/21/2022 8:46AM 11:59PM Payer Includes: Active Insurance Policies Plan Name (Payer ID) Coverage Type Member ID Group # Subscriber (ID) Relationship Effective Dates 1 - [facility] ([id number]) [id number] GABE OLVERA Self 10/07/2019 - Unknown Last Documented On 2 8:43AM ; [facility]
--- OUTSIDE RECORDS SUMMARY | 2025-10-01 20:15 | XMS_ITS | Encounter Summary ---
Author Organization Healthcare Address [address] [place] [address] Care Team Providers Care Academic Physician Name Role Phone Meli Gallardo APRN Primary Care Provider [phone] Tito Sue MD Unavailable [phone] Reason for Referral * Consultation (Routine) - Closed Specialty Diagnoses / Procedures Referred By Estrellita alves Referred To Contact Hand Surgery Diagnoses Trigger index finger of left hand Jefry Zayas [address] [place] [address] Phone: tel: fax: Ayad Avitia MD [address] [address] Phone: tel: fax: Referral ID Status Reason Start Date Expiration Date Visits Re quested Visits Authorized [id number] Closed 09/11/2023 03/12/2025 1 1 Encounter Details Date Type Department Care Team (Late st Contact Info) Description 09/11/2023 Community Orders [facility] [address] [place] [address] Jefry Zayas [address] [place] [address] Trigger index finger of left [...] documented as of this encounter Care Teams Academic Physician Relationship Specialty Start Date End Date Meli Gallardo APRN [id number] PCP - General 02/17/21 Tito Sue MD [address] [facility] [address] [place] [address] Surgeon Neurosurgery 07/21/25 documented as of this encounter
--- OUTSIDE RECORDS SUMMARY | 2025-10-01 20:15 | XMS_ITS | Encounter Summary ---
Author Organization Healthcare Address [address] [place] [address] Care Team Providers Care Pulp Roller Name Role Phone Meli Gallardo NAPHTHOL SOAPING MACHINE OPERATOR Primary Care Provider [phone] Tito Sue MD Unavailable [phone] Reason for Visit * Reason Comments Med Refill Encounter Details Date Type Department Care Team (Late st Contact Info) Description 08/31/2021 [facility] [address] [place] [address] Debbie Patel, NAPHTHOL SOAPING MACHINE OPERATOR [address] [facility] [address] [place] [address] Social History Tobacco Use Types [...] documented as of this encounter Care Teams Pulp Roller Relationship Specialty Start Date End Date Meli Gallardo APRN [id number] PCP - General 02/17/21 Tito Sue MD [address] [place] [address] Surgeon Neurosurgery 07/21/25 documented as of this encounter
--- OUTSIDE RECORDS SUMMARY | 2025-10-01 20:15 | XMS_ITS ---
Care Plan - [facility] Created on: October 01, 2025 GABE OLVERA : 1960 Sex: Female Author Organization [facility] Address [address] [facility] [place] [address] Phone Care Team Providers Care Block Paver Name Role Phone Meli Gallardo APRN Unavailable [phone] Roselyn MCKEON, Tyler Yadav Unavailable [phone]
--- NOTE | 2025-10-01 20:18 | ED_ITS ---
<Statement entered by Sandrine River MD - 10/01/25 23:22> I was consulted by the RICARDO, and we discussed the complexity of the problems being addressed. I approved the treatment and management plan for this patient's care in the emergency department, thus performing a substantive portion of the medical decision making. Sandrine River MD, ROSALIA, FACEP Discharge Plan Disposition Chief Complaint: Chest Pain Prescriptions Prescriptions: No Action lisinopril 20 mg tablet 20 mg PO DAILY albuterol sulfate 90 mcg/actuation HFA aerosol inhaler 2 puff INHALATION Q4HP PRN (Reason: wheezing) buspirone 10 mg tablet 10 mg PO TID ergocalciferol (vitamin D2) 1,250 mcg (50,000 unit) capsule 1,250 mcg PO WEEKLY Humulin 70/30 U-100 KwikPen 100 unit/mL (70-30) insulin pen 20 unit SQ BID Ozempic 1 mg/dose (4 mg/3 mL) pen injector 1 mg SQ WEEKLY cyclobenzaprine 5 mg tablet 5 mg PO TIDP PRN (Reason: muscle spasm) levothyroxine [Synthroid] 175 mcg Tablet 175 mcg PO DAILYDM 30 Days Qty: 30 0RF Xarelto DVT-PE Treat 30d Start 15 mg (42)- 20 mg (9) tablets,dose pack See Rx Instructions .ROUTE .COMPLEX Qty: 51 0RF Rx Instructions: take one-15 mg tablet twice daily for 20 days, then one-20 mg tablet once daily; must take with meal/food Referrals Follow up/Referrals: Meli Gallardo [Primary Care Provider, Medical] - See instructions Print Language Print Language: Frisian Discharge ED Provider: Sandrine River HPI General Chief Complaint: Chest Pain Stated Complaint: Chest Pain Time Seen by Provider: 10/01/25 19:45 Mode of Arrival: EMS Source of Information: Patient Description of Symptoms (Recalled from ER Triage Doc. by RN): Patient presents to the ED via [facility] for chest pain. Patient states that the pain started at 1830 this evening under her left breast, described as stabbing. Patient reports that she was discharged from [facility] yesterday with a diagnosis of blood clots. She denies any shortness of breath. History of Present Illness HPI narrative: April Olvera is a 65-year-old female who presents emergency room tonight with complaints of chest pain. Patient reports that chest pain started approximately 1830 this evening. Pain is reported on the left side of her chest/epigastric region. Described as sharp and stabbing. Nonradiating. Patient was discharged from the hospital here yesterday, was diagnosed with pulmonary emboli. Patient reports she had the same type of chest pain when she was admitted and found pulmonary emboli on 09/29. No fever noted. Denies any shortness of breath. Not on oxygen at baseline. Denies any cough, abdominal pain, bowel or bladder dysfunction. No swelling in her legs or feet. Chest pain currently rated at a 3/10. No other complaints at this time. Related Data Home Medications ?Medication ?Instructions ?Recorded ?Confirmed albuterol sulfate 90 mcg/actuation 2 puff inhalation Q 4HP PRN wheezing 09/29/25 09/29/25 aerosol inhaler buspirone 10 mg tablet 10 mg PO TID 09/29/25 cyclobenzaprine 5 mg tablet 5 mg PO TIDP PRN muscle sp asm 09/29/25 09/29/25 ergocalciferol (vitamin D2) 1,250 1,250 mcg PO WEEKLY 09/29/25 09/29/25 mcg (50,000 unit) capsule insulin NPH-regular 70-30 U-100 20 unit SQ BID 5 09/29/25 insulin 100 unit/mL subcutaneous pen (Humulin 70/30 U-100 KwikPen) lisinopril 20 mg tablet 20 mg PO DAILY 09/29/2509/07 semaglutide 1 mg/dose (4 mg/3 mL) 1 mg SQ WEEKLY 09/2909/29/25 subcutaneous pen injector (Ozempic) Previous Rx's ?Medication ?Instructions ?Recorded levothyroxine 175 mcg tablet 175 mcg PO DAILYDM 30 day s #30 tabs 09/30/25 (Synthroid) rivaroxaban 15 mg (42)-20 mg (9) See Rx Instructions P O .COMPLEX 09/30/25 tablets in a starter pack (Xarelto #51 tabs DVT-PE Treatment 30-Day Starter) Allergies Allergy/AdvReac Type Severity Reaction Status Date / Time cephalexin (From [employer]) Allergy Intermediate I-RASH Verified 09/29/25 11:04 cetirizine (From Zyrtec) Allergy Intermediate I-RASH Verified 09/29/25 11:04 codeine Allergy Intermediate RAPID Verified 09/29/25 11:04 HEART RATE erythromycin base (From Allergy Intermediate I-RASH Verified 09/29/25 11:04 E-Mycin) estrogens, conjugated (From Allergy Intermediate I-RASH Verified 09/29/25 11:04 Premarin) morphine Allergy Intermediate RAPID Verified 09/29/25 11:04 HEART RATE Penicillins Allergy Intermediate I-RASH Verified 09/29/25 11:04 Sulfa (Sulfonamide Allergy Intermediate I-RASH Verified 09/29/25 11:04 Antibiotics) [facility] Disclaimer: The information contained in this section may have been updated after the patient was seen, as this information can be updated by other users. Medical History (Updated 09/29/25 @ 14:40 by Derek Lizarraga MD) Diabetes Hypothyroid Hypertension Surgical History No significant past surgical history Family History No significant family history Social History Smoking Status: Never smoker alcohol intake: never current occupational status: retired Travel in the last 8 weeks?: None Have you lived/traveled outside US in past 30 days?: No Contact w/someone who lives/traveled outside US past 30 days?: No Exposure to someone with infectious disease in past 14 days?: No Do you have a fever (greater than 100.4 F or 38 C)?: No Have you tested positive for COVID-19?: No Exposed to someone with COVID-19 in past 14 days?: No Do you have a sore throat?: No Do you have a cough?: No Do you have any weakness?: No Do you have any diarrhea?: No Are you experiencing any unusual bleeding?: No Do you have any muscle aches/pain?: No Do you have any abdominal pain?: No Are you experiencing loss of taste or smell?: No Other Medical History Have you received the Flu Vaccine for this season: No Have you received the Pneumonia Vaccine: No ROS Obtained: Yes All systems reviewed & no additional complaints except as documented Physical Exam General General appearance: alert and in no apparent distress Head Head exam: atraumatic and normocephalic Eye Eye exam: Present PERRL and EOMI Neck Neck exam: Present trachea midline Chest Chest inspection: Present symmetric chest wall rise Respiratory Respiratory exam: Present normal lung sounds bilaterally Cardiovascular Cardiovascular exam: Present regular rate and normal rhythm Abdominal Exam Abdominal exam: Present soft and normal bowel sounds; Absent tenderness Extremities Exam Extremities exam: Present normal inspection and full ROM Neurological Exam Neurological exam: Present alert and oriented X3 Skin Skin exam: Present warm, dry and intact HEART Score HEART Score HEART Score assessment performed?: Yes HEART Score: 5 Critical Care Critical Care Time Critical Care Time: No Medical Decision Making Elroy Inquiry Pt receiving controlled substance: No Vital Signs Vital Signs: 10/01/25 19:43 10/01/25 19:51 10/01/25 20:00 Temperature 101.4 F H 98.5 F Temperature Source Axillary Oral Pulse Rate 93 H Pulse Rate [Right Radial] 99 H Respiratory Rate 18 15 Blood Pressure 142/89 H Blood Pressure [Right Arm] 173/96 H Blood Pressure Mean [Right Arm] 121 Blood Pressure Source [Right Arm] Automatic Cuff 02 Sat by Pulse Oximetry 93 L 95 Oxygen Delivery Method Room Air 10/01/25 20:26 10/01/25 20:33 Temperature Temperature Source Pulse Rate 87 96 H Pulse Rate [Right Radial] Respiratory Rate 18 Blood Pressure 142/89 H Blood Pressure [Right Arm] Blood Pressure Mean [Right Arm] Blood Pressure Source [Right Arm] 02 Sat by Pulse Oximetry 96 Oxygen Delivery Method Room Air Lab Data Labs: Lab Results 10/01/25 19:41: WBC 6.4, RBC 4.21, Hgb 12.2, Hct 36.4 L, MCV 86.5, MCH 29.0, MCHC 33.5, RDW 13.4, Plt Count 155, MPV 10.1, Neut % (Auto) 64.5, Lymph % (Auto) 25.9, [place] % (Auto) 7.1, Eos % (Auto) 1.7, Baso % (Auto) 0.5, Neut # (Auto) 4.1, Lymph # (Auto) 1.7, [place] # (Auto) 0.5, Eos # (Auto) 0.1, Baso # (Auto) 0.0, Sodium 137, Potassium 3.7, Chloride 101, Carbon Dioxide 27, Anion Gap 12.7, BUN 8 D, Creatinine 0.60, Estimated Creat Clear 67, Estimated GFR 100, Est GFR ( Amer) 121, Glucose 260 H, Calcium 9.2, Total Bilirubin 1.0, AST 28, ALT 29, Alkaline Phosphatase 74, Troponin I < 0.01, NT-Pro-B Natriuret Pep 120, Total Protein 7.2, Albumin 4.3, Globulin 2.9, Albumin/Globulin Ratio 1.5 10/01/25 19:41 10/01/25 19:41 Response Orders (Tests/Meds): ED MEDICATIONS Discontinued Medications Generic Name Dose Route Start Last Admin Trade Name Freq PRN Reason Stop Dose Admin Acetaminophen 1,000 mg 10/01/25 19:51 10/01/25 20:02 Acetaminophen 500mg Tab PO 10/01/25 19:52 1,000 mg ONCE ONE Administration Hydromorphone HCl 0.5 mg 10/01/25 20:44 10/01/25 20:53 Hydromorphone 2mg/Ml Syringe IV 10/01/25 20:45 0.5 mg ONCE ONE Administration Ondansetron HCl 4 mg 10/01/25 20:41 10/01/25 20:54 Ondansetron 4mg/2ml Vial IV 10/01/25 20:42 4 mg ONCE ONE Administration Rivaroxaban 15 mg 10/01/25 20:53 Rivaroxaban 15mg Tablet PO 10/01/25 20:54 ONCE ONE Rivaroxaban 1 packet 10/01/25 20:53 Xarelto 15mg Thp 1 Packet Karson PO 10/01/25 20:54 ONCE ONE ORDERS Category Date Time Status POCUS Point of Care (ER Only) Stat Exams 10/01/25 19:46 Ordered BNP [NT Pro Brain Natriuretic Pep.] Stat Lab 10/01/25 19:41 Completed CBC w/Auto Diff [Complete Blood Count Auto Diff] Stat Lab 10/01/25 19:41 Completed CMP [Comprehensive Metabolic Panel] Stat Lab 10/01/25 19:41 Completed Trop I [Troponin I] Stat Lab 10/01/25 19:41 Completed Troponin I Q3H Lab 10/01/25 23:00 Ordered Troponin I Q3H Lab 10/02/25 02:00 Ordered MDM Narrative Medical Decision Narrative: In summary patient is an 65-year-old female who presents emergency department for evaluation of chest pain. Patient was just discharged from this facility on 09/30, was diagnosed with pulmonary emboli. Was started on Xarelto upstairs. Did not go fruit or nut picker her prescription today for her Xarelto. Has not had a dose since 09/30. Chest pain started approximately 1830 this evening. Reported as sharp, nonradiating, left side of her chest/epigastric. Patient known to be COVID-positive on 09/29. CTA of the chest was done on 09/29, noted multiple segmental pulmonary emboli without evidence of right heart strain. Patient is hemodynamically stable, mildly febrile with Tmax at 101.4, 6 slightly hypertensive, on room air upon arrival. Unremarkable nonfocal physical exam. Differential diagnosis includes pulmonary infarct, ACS, GERD. Initial workup will be conducted with hematologic labs, EKG. Initial interventions include IV pain medication and antiemetics. Initial workup reviewed by tn hematologic labs essentially unremarkable. No leukocytosis noted. Glucose slightly elevated at 260, troponin was negative, BNP at 120. EKG without ST elevation. Upon repeat evaluation patient had a acceptable decrease in her chest pain. Patient has now 4 documented undetectable troponin levels, BNP was normal. EKG without any ST changes. Patient went to go fruit or nut picker her prescription today from [facility] for Xarelto. The pharmacy told her that they would not have her prescription available until after Thursday 10/04. She has not had a dose of Xarelto in 24 hours. I will give her a dose of this evening. We have called to [facility] pharmacy in [facility], they state that they have the medication in stock and can fill her prescription immediately. I have explained this to the patient that she needs to take her dose of Xarelto tonight, she needs to then drive to [place] tomorrow to [facility] and fruit or nut picker her Xarelto. She cannot go all weekend without it. Given this patient appropriate for discharge at this time. I will send her prescription for her Xarelto over to [facility] pharmacy in [facility]. Return precautions were given and patient stated understanding.
[2025-10-01 20:26] VITALS: PULSE 87
--- NOTE | 2025-10-01 20:29 | PC.NURSE ---
Pt provided with a warm blanket.
[2025-10-01 20:33] VITALS: BP 142/89; PULSE 96; RESP 18; O2SAT 96
[2025-10-01] MEDS: HYDROMORPHONE 2MG/ML SYRINGE 0.5 MG IV (20:53)
[2025-10-01] MEDS: ONDANSETRON 4MG/2ML VIAL 4 MG IV (20:54)
[2025-10-01 21:43] VITALS: BP 141/83; PULSE 86; RESP 18; TEMP 36.8; O2SAT 95
== END 2025-10-01 21:43 | disposition home or self-care (01) ==
PROVIDERS: Nurse Practitioner Acute Care; Emergency Provider Student in an Organized Health Care Education/Training Program; PCP Nurse Practitioner Family
DX: R07.9 Chest pain, unspecified (principal); I26.99 Other pulmonary embolism without acute cor pulmonale; I10 Essential (primary) hypertension; E11.65 Type 2 diabetes mellitus with hyperglycemia; Z79.4 Long term (current) use of insulin
CPT/HCPCS: 80053; 83880; 84484; 85025; 93005; 96374; 96375; 99285; J1171; J2405